=== PATIENT | female | born 1970 | race Caucasian/White ===

== ENCOUNTER 2024-07-26 02:25 | Inpatient (IN) | payer OTHER, SELFPAY ==
[2024-07-25 20:12] VITALS: BP 108/76
[2024-07-25 20:49] LABS: % Eosinophils 0.2 % (0-6); % Immature Granulocytes 0.5 % (0-0.5); % Lymphocytes 33.6 % (20.5-51.1); % Monocytes 5.1 % (1.7-9.3); % Neutrophils 60.6 % (42.2-75.2); Absolute Lymphocytes 1.9 10^3/uL (1.2-3.4); Absolute Monocytes 0.3 10^3/uL (0.1-0.6); Absolute Neutrophils 3.5 10^3/uL (1.4-6.5); Hematocrit 24.2 % (37.0-47.0); Hemoglobin 8.1 g/dL (12.0-16.0); Mean Corp Hgb Conc. 33.5 g/dL (33.0-37.0); Mean Corpuscular Hgb 31.5 pg (27.0-31.0); Mean Corpuscular Volume 94.2 fL (81.0-99.0); Nucleated Red Blood Cells % 0 %; Red Blood Cell Count 2.57 10^6/uL (4.20-5.40); Red Cell Dist. Width 16.3 % (11.5-14.5); White Blood Cell Count 5.7 10^3/uL (4.8-10.8)
[2024-07-25 20:59] LABS: ALT (SGPT) 19 U/L (0-35); AST (SGOT) 17 U/L (14-36); Albumin 2.5 g/dl (3.5-5.0); Alkaline Phosphatase 669 U/L (38-126); Blood Urea Nitrogen 25 mg/dl (7-17); Calcium 8.5 mg/dl (8.4-10.2); Carbon Dioxide 20 mmol/L (22-30); Chloride 101 mmol/L (98-107); Glucose 82 mg/dl (70-99); Lipase 33 U/L (23-300); Potassium 4.1 mmol/L (3.5-5.1); Sodium 132 mmol/L (135-145); Total Bilirubin 0.2 mg/dl (0.2-1.3); Total Protein 5.1 g/dl (6.3-8.2); eGFR > 60.00
[2024-07-25 21:10] LABS: Mean Platelet Volume 8.1 fL (7.4-10.4); Platelet Count 808 10^3/uL (130-400)
[2024-07-25 21:43] VITALS: BMI 22.8
[2024-07-25 21:44] VITALS: BP 106/76
--- NOTE | 2024-07-25 22:03 | ED.GENMED ---
History of Present Illness
<Jame Sierra MD, Resident - Last Filed: 07/26/24 03:00>
General
Chief Complaint: Abdominal Pain
Source: patient
Time Seen by Provider: 07/25/24 22:03
Travel History
Have you traveled to any high risk areas for coronavirus over the past 14 days?: No
Have you had any contact with someone who has COVID-19?: No
Do you have any symptoms of coronavirus? Fever > 100 degrees, chills, cough, shortness of breath, sore throat, loss of taste or smell, muscle aches, or headache?: No
History of Present Illness
History of Present Illness:
Kacey Waldrop, 54-year-old female with Crohn's disease/ulcerative colitis, has had worsening lower abdominal pain, bloody diarrhea, weakness, lightheadedness, intermittent fevers and nausea for the past few weeks. She was recently discharged from
[facility] for similar symptoms on 07-09-24. She is on prednisone but has been off mesalamine for the past month or so due to insurance issues. She has a follow-up scheduled with her back end developer next week; came to the emergency today due to
progressive pain and worsening bloody diarrhea.
Past History
<Jame Sierra MD, Resident - Last Filed: 07/26/24 03:00>
Past History
ED Past Medical History: Other (Crohn's disease/ulcerative colitis; gastroesophageal reflux disease; uterine fibroids)
ED Past Surgical History: Other (fibroid surgery)
Social History
Tobacco: Non-smoker
Alcohol: Occasional
Drug: None
Review of Systems
<Jame Sierra MD, Resident - Last Filed: 07/26/24 03:00>
Review of Systems
All Other Systems: Not applicable
Constitutional: Reports fever and fatigue
EENT: Reports no symptoms
Respiratory: Reports no symptoms
Cardiac: Reports no symptoms
ABD/GI: Reports nausea, bloody stools, anorexia and pain
: Reports no symptoms
Musculoskeletal: Reports no symptoms
Skin: Reports no symptoms
Neurological: Reports no symptoms
Endocrine: Reports no symptoms
Hematologic/Lymphatic: Reports no symptoms
Psychiatric: Reports no symptoms
Phy Exam
<Jame Sierra MD, Resident - Last Filed: 07/26/24 03:00>
General Physical Exam
General Presentation: mild distress
General Skin: warm and dry
General Habitus: normal
General Mental: alert
General Hydration: appears well hydrated
ENT Exam
ENT Exam: EOMI, pharynx normal, neck supple and normocephalic
Eye Exam
Eye Exam: PERRL, cornea clear and conjunctiva normal
Cardiovascular Exam
Cardiovascular Exam: regular rate/rhythm, no edema, no murmur and normal peripheral pulses
Pulmonary Exam
Pulmonary Exam: lungs clear, no respiratory distress, no rales, no crackles, no rhonchi, no stridor, no wheezing and no cough
Gastrointestinal Exam
Gastrointestinal Exam: soft, no organomegaly, no pulsatile mass and tender (LLQ > lower > diffuse)
Neurological Exam
Neurological Exam: alert, oriented x3, no motor deficits and speech normal
Musculoskeletal Exam
Musculoskeletal Exam: full ROM and no edema
Skin Exam
Skin Exam: normal color, warm/dry, no rash and no petechia
Psychiatric Exam
Psychiatric Exam: anxious
Course
<Jame Sierra MD, Resident - Last Filed: 07/26/24 03:00>
Orders/Labs/Results
Orders:
Orders
07/25/24 20:26
Complete Blood Count/With Diff Urgent
Comprehensive Metabolic Panel Urgent
Lipase Urgent
07/25/24 22:24
Add On- LAB Urgent
Tests Added?: lipase; lactic acid
HYDROmorphone [Dilaudid] 0.5 mg IV NOW STA
Ondansetron Injectable [Zofran] 4 mg IV NOW STA
07/25/24 22:26
0.9% Sodium Chloride 1000 ml [Nss] 1,000 ml IV BOLUS
07/25/24 23:44
Lactic Acid Urgent
Comment: COLLECT. CANNOT ADDON A LACTIC ACID
07/26/24 00:00
CT Abd/pelvis W Iv Cont Stat
Reason For Exam: LLQ pain; bloody diarrhea; suspected UC flare
07/26/24 01:07
MethylPREDNISolone PF [Solu-Medrol Pf] 60 mg IV NOW STA
07/26/24 02:00
Flush (0.9% Sodium Chloride) [Flush (Nss)] See Dose Instructions IV PER PROTOCOL
07/26/24 02:11
Admit/Transfer Patient As Directed
Co-Sign Provider:
Level of Care: Inpatient admission
Assign to:: Medical/Surgical
Physician / Group: hospitalist
Diagnosis: Inflammator bowel disease
Reason for Hospitalization: Uncontrolled IBD
Expected length of stay greater than two midnights?: Yes
ELOS- Estimated Length of Stay in days: 2
I certify the patient meets the requirements for IP care: Yes
Code Status As Directed
Resuscitation Status: Full Code
PRN Pain Medication Management As Directed
May give lesser potent ordered pain med per pt: Yes
preference::
Protocol:: Medication orders for pain may be administered in a
manner that supports deferring to patient preference
when the pt is:
- Requesting an ordered lesser potent pain medication.
Least to most potent pain medications are defined
as: acetaminophen < NSAID < tramadol < opioids
(morphine, oxycodone, hydromorphone).
- Requesting a lesser dose of the same medication IF
ORDERED.
- Requesting a less intrusive route of administration
if both routes are prescribed by the provider (PO <
IV).
Abnormal Lab Results
07/25/24
20:26
RBC 2.57 L 10^6/uL
(4.20-5.40)
Hgb 8.1 L g/dL
(12.0-16.0)
Hct 24.2 L %
(37.0-47.0)
MCH 31.5 H pg
(27.0-31.0)
RDW 16.3 H %
(11.5-14.5)
Plt Count 808 H 10^3/uL
(130-400)
Sodium 132 L mmol/L
(135-145)
Carbon Dioxide 20 L mmol/L
(22-30)
BUN 25 H mg/dl
(7-17)
Alkaline Phosphatase 669 H U/L
(38-126)
Total Protein 5.1 L g/dl
(6.3-8.2)
Albumin 2.5 L g/dl
(3.5-5.0)
07/25/24 20:26
07/25/24 20:26
Vital Signs
Initial and Last Documented VS:
Initial Vital Signs
Temp Pulse Resp BP Pulse Ox
98.5 F 96 18 108/76 98
07/25/24 20:12 07/25/24 20:12 07/25/24 20:12 07/25/24 20:12 07/25/24 20:12
Last Documented Vital Signs
Temp Pulse Resp BP Pulse Ox
98.3 F 81 18 106/73 99
07/25/24 21:44 07/25/24 21:44 07/25/24 21:44 07/25/24 23:00 07/25/24 23:00
<Christian Springer MD - Last Filed: 07/26/24 01:09>
Orders/Labs/Results
Orders:
Orders
07/25/24 20:26
Complete Blood Count/With Diff Urgent
Comprehensive Metabolic Panel Urgent
Lipase Urgent
07/25/24 22:24
Add On- LAB Urgent
Tests Added?: lipase; lactic acid
HYDROmorphone [Dilaudid] 0.5 mg IV NOW STA
Ondansetron Injectable [Zofran] 4 mg IV NOW STA
07/25/24 22:26
0.9% Sodium Chloride 1000 ml [Nss] 1,000 ml IV BOLUS
07/25/24 23:44
Lactic Acid Urgent
Comment: COLLECT. CANNOT ADDON A LACTIC ACID
07/26/24 00:00
CT Abd/pelvis W Iv Cont Stat
Reason For Exam: LLQ pain; bloody diarrhea; suspected UC flare
07/26/24 01:07
MethylPREDNISolone PF [Solu-Medrol Pf] 60 mg IV NOW STA
07/26/24 02:00
Flush (0.9% Sodium Chloride) [Flush (Nss)] See Dose Instructions IV PER PROTOCOL
07/26/24 02:11
Admit/Transfer Patient As Directed
Co-Sign Provider:
Level of Care: Inpatient admission
Assign to:: Medical/Surgical
Physician / Group: hospitalist
Diagnosis: Inflammator bowel disease
Reason for Hospitalization: Uncontrolled IBD
Expected length of stay greater than two midnights?: Yes
ELOS- Estimated Length of Stay in days: 2
I certify the patient meets the requirements for IP care: Yes
Code Status As Directed
Resuscitation Status: Full Code
PRN Pain Medication Management As Directed
May give lesser potent ordered pain med per pt: Yes
preference::
Protocol:: Medication orders for pain may be administered in a
manner that supports deferring to patient preference
when the pt is:
- Requesting an ordered lesser potent pain medication.
Least to most potent pain medications are defined
as: acetaminophen < NSAID < tramadol < opioids
(morphine, oxycodone, hydromorphone).
- Requesting a lesser dose of the same medication IF
ORDERED.
- Requesting a less intrusive route of administration
if both routes are prescribed by the provider (PO <
IV).
Abnormal Lab Results
07/25/24
20:26
RBC 2.57 L 10^6/uL
(4.20-5.40)
Hgb 8.1 L g/dL
(12.0-16.0)
Hct 24.2 L %
(37.0-47.0)
MCH 31.5 H pg
(27.0-31.0)
RDW 16.3 H %
(11.5-14.5)
Plt Count 808 H 10^3/uL
(130-400)
Sodium 132 L mmol/L
(135-145)
Carbon Dioxide 20 L mmol/L
(22-30)
BUN 25 H mg/dl
(7-17)
Alkaline Phosphatase 669 H U/L
(38-126)
Total Protein 5.1 L g/dl
(6.3-8.2)
Albumin 2.5 L g/dl
(3.5-5.0)
07/25/24 20:26
07/25/24 20:26
Vital Signs
Initial and Last Documented VS:
Initial Vital Signs
Temp Pulse Resp BP Pulse Ox
98.5 F 96 18 108/76 98
07/25/24 20:12 07/25/24 20:12 07/25/24 20:12 07/25/24 20:12 07/25/24 20:12
Last Documented Vital Signs
Temp Pulse Resp BP Pulse Ox
98.3 F 81 18 106/73 99
07/25/24 21:44 07/25/24 21:44 07/25/24 21:44 07/25/24 23:00 07/25/24 23:00
<Jame Sierra MD, Resident - Last Filed: 07/26/24 03:00>
MDM/Problems Addressed
MDM/Problems Addressed:
CT AP consistent with diffuse colitis. IV steroids and will admit.
<Jame Sierra MD, Resident - Last Filed: 07/26/24 03:00>
*Critical Care Note
Total Time (30-74mins, 75-104mins- exclusive of procedures): Not Applicable
ED Attending Note
<Jame Sierra MD, Resident - Last Filed: 07/26/24 03:00>
-
Portions of this chart may have been created with voice recognition software.� Occasional wrong word or��sound alike� substitutions may have occurred due to the inherent limitations of voice recognition software.
<Christian Springer MD - Last Filed: 07/26/24 01:09>
ED Attending Note
Patient seen and examined by attending physician: Yes
I performed a history and physical exam of patient and discussed management with resident, I reviewed resident's note and agree with documented findings and plan of care.: Yes
ED Attending Note:
I have seen and evaluated the patient with a zpps-ox-poda encounter. I have spoken to the resident and involved in the medical history, the physical exam, medical decision making.
Evaluation and management service: agree unless noted differently below.
Results interpretation: agree unless noted differently below.
Focused HPI: 54-year-old female with past medical history of GERD, Crohn's who presents to the emergency room for evaluation of abdominal pain. Patient reports she has been dealing with lower abdominal pain and bloody diarrhea for the past month.
Symptoms became more severe a few weeks ago and she was admitted at [facility] for about 2 weeks was discharged at the end of June. She says she was on Remicade while admitted and was also treated with steroids; she says she was discharged
on prednisone is currently on 50 mg daily. She says that despite this she has continued to have crampy abdominal pain and symptoms have been worsening over the past few days and she cannot manage at home. She continues to have bloody diarrhea.
Came to the ER for assessment. Denies fevers or chills. Denies vomiting. Denies other complaints.
Physical exam: Awake alert appears mildly uncomfortable. Vital signs are within normal limits. Abdomen soft, nondistended, mild upper abdominal tenderness, moderate lower abdominal tenderness somewhat worse on the left
Medical Decision Makin-year-old female with a history of Crohn's and recent admission at [facility] for Crohn's flare presents to the ED for evaluation of worsening crampy abdominal pain and bloody diarrhea. Vitals and exam as above. Labs
were sent off including a CBC which shows anemia to 8, thrombocytosis. CMP shows alk phos 669. Awaiting results of CT abdomen pelvis. Provide pain control, fluids. Reassess as above.
CT shows findings consistent with diffuse colitis�suspect Crohn's flare. Treat with IV steroid. Will admit for continued treatment. Discussed with hospitalist.
Discharge Plan
Departure
Patient Disposition: Admit
Date of Disposition: 07/26/24
Time of Disposition: 01:22
Presentation/result/management discussed w/ accepting MD/DO: Hospitalist
Patient with high blood pressure during this ER visit?: No
Discharge Problem:
Colitis
Interventions
Interventions:
*Risk Screen - Suicide Last Done: 07/25/24 20:12
*General Assessment Last Done: 07/25/24 20:12
*Neglect/Abuse Screening Last Done: 07/25/24 20:12
*ED COVID-19 Vaccine History Last Done: 07/25/24 20:12
JT-Kgcddd-Areyrsnmwc Assessment Last Done: 07/25/24 21:46
[2024-07-25 23:00] VITALS: BP 106/73
--- NOTE | 2024-07-25 23:23 | PTCARENOTE ---
IV start attempt x2 unsuccessful, IV team notified.
[2024-07-25] MEDS: DILAUDID 0.5 MG IV (23:40)
[2024-07-25] MEDS: ZOFRAN 4 MG IV (23:40)
[2024-07-25] MEDS: NSS 1000 IV (23:40)
[2024-07-26] VITALS (20 sets, daily range): BP systolic 94–111; BP diastolic 58–83; BMI 22.2
[2024-07-26] MEDS: SOLU-MEDROL PF 60 MG IV (01:39)
--- NOTE | 2024-07-26 01:48 | HPS.HSE ---
Family Physician
-
Family Physician: Dipti Mohan
Chief Complaint
-
Abdominal pain and diarrhea
History of Present Illness
This is a 54-year-old who has a longstanding history of inflammatory bowel disease (states about Crohn's and ulcerative colitis) who presents to the emergency department for persistent loose stools and abdominal pain has been going on since her
discharge from [facility] on July 09 and worsened in the last few days.
Patient reported that IBD has been in remission since around 2015 and she has been of any suppressive medications for a long time. She was asymptomatic until June of this year when she was admitted at [facility] and diagnosed with
exacerbation of her IBD. She was treated with steroids mesalamine and given a dose of Remicade prior to discharge. Patient was unable to feel her methylamine. She did continue on a prednisone taper starting at 60 mg daily for 10 days and now on
50 mg. Despite this the patient continues to have frequent bloody or mucousy stools as well as abdominal pain. She denies fevers or chills. She denies nausea or vomiting. She is able to tolerate some p.o. She was to follow-up with
repairer screen crusher (Dr. Juan Roche) in [place] next months but she feels symptoms so severe she cannot tolerate. It is unclear to why she is unable to fill the prescription for the mesalamine.
The emergency department was afebrile hemodynamically stable and has a normal CBC except for some thrombocytosis 11/22/2007. Seen lites BUN/creatinine was mostly unremarkable. Lactic acid was negative. CT scan of abdomen pelvis shows diffuse
colitis
Medical History
Past Medical History
Past Medical History: Reports GERD
Additional Past Medical History:
Psoriasis
IBD
Past Surgical History: Reports Gynocological (Fibroid resection)
Social History
Tobacco: Non-smoker
Alcohol: None
Drug: None
Personal: Single
Living: Alone
Employment: Not Employed
Family History
Family History: Not pertinent
Allergies / Home Medications
Allergies reflects when Allergies were last updated in [employer].
Home Medications with original date entered in [employer]
Allergy/Medication List:
Allergies
Allergy/AdvReac Type Severity Reaction Status Date / Time
No Known Allergies Allergy Unverified 07/25/24 20:12
Sertraline 50mg, 1 Tab PO daily
Pantoprazole 40mg, 1 Tab PO daily
Nystatin Suspension, 5ml ([id number]) PO Four times daily
Review of Systems
-
History Source: Patient
Constitutional: Reports Fatigue
EENT: Reports No Symptoms
Respiratory: Reports No Symptoms
Cardiac: Reports No Symptoms
Abdomen/GI: Reports Abdominal Pain, Diarrhea and Bloody Stools
: Reports No Symptoms
Musculoskeletal: Reports No Symptoms
Skin: Reports No Symptoms
Neurological: Reports No Symptoms
Endocrine: Reports No Symptoms
Hematologic/Lymphatic: Reports No Symptoms
Psych: Reports No Symptoms
Physical Exam
Vital Signs
Vital Signs
Temp Pulse Resp BP Pulse Ox
98.3 F 81 18 106/73 99
07/25/24 21:44 07/25/24 21:44 07/25/24 21:44 07/25/24 23:00 07/25/24 23:00
Physical Exam
General: No Apparent Distress
HEENT: NormoCephalic, Anicteric, Moist mucous membranes, Atraumatic, PERRLA and Other
Respiratory: Clear
Cardiac: S1/S2 and Regular Rhythm
Breast: Deferred by me
GI: Soft, Normal Bowel Sounds, Tender (in the LUQ, LLQ and RLQ) and Other (No guarding or rebound)
Rectal: Deferred by Provider
Musculoskeletal: No Clubbing, No Cyanosis and No Edema
Neuro: AO x 3
Hematologic/Lymphatic: No Lymphadenopathy
Psych: Calm
Laboratory Results
-
07/25/24 20:26
07/25/24 20:
Laboratory Results
Lactic Acid 1.0 mmol/L (0.7-2.0) 07/25/24 23:44
Total Bilirubin 0.2 mg/dl (0.2-1.3) 07/25/24 20:
AST 17 U/L (14-36) 07/25/24 20:
ALT 19 U/L (0-35) 07/25/24 20:
Alkaline Phosphatase 669 U/L (38-126) H 07/25/24 20:
Lipase 33 U/L (23-300) 07/25/24 20:
Data Reviewed
-
CT Scan: Report Reviewed by me
Lab Data: Labs Reviewed by me
Old Records: Reviewed
Impression/Plan
-
IMPRESSION:
Patient with history of inflammatory bowel disease (Crohn's and ulcerative colitis), psoriasis or any who presents to the emergency department with persistent abdominal pain diarrhea and nausea status post admission for exacerbation in June at
[facility]. She was discharged on a prednisone taper, mesalamine and given a dose of Remicade prior to discharge. Patient unable to fill the mesalamine but has continued on the prednisone taper pending follow-up with repairer screen crusher.
She is however having persistent to worsening symptoms and unable to wait for this appointment. Claudia had no fevers or chills. Labs remarkable for anemia with hemoglobin of 8.1 but otherwise stable.
PLAN:
1. GI -abdominal pain, frequent bloody and loose stools, tenderness, consistent with active inflammatory bowel disease. CT scan shows colitis. It appears that she was started on induction therapy to achieve remission but patient is not quite
responding to the steroids, immunomodulators. Based on the treatment approach suggestion that she has more of an ulcerative colitis picture 'patient has also been diagnosed with Crohn's and has psoriasis
- admit to med/surg
- clear liquid diet for now
- obtain records from [facility]
- s/p IV prednisone 50mg in ED, continue oral prednisone 40mg po daily for now
- check crp, esr,
- IV fluids, GI consultation
2. Anemia - ACD vs Iron def Anemia given intermittently bloody stools for weeks
- getting iron studies and including hemolysis labs and folate b12
- transfuse if hgb < 7
DVT PPx - Lovenox sq
Code Status - Full Code
[2024-07-26] MEDS: LR 1000 IV ×2 (06:21→23:25)
[2024-07-26 06:46] LABS: Erythrocyte Sed Rate 92 mm/hour (0-20)
[2024-07-26 06:47] LABS: Hematocrit 20.8 % (37.0-47.0); Hemoglobin 6.9 g/dL (12.0-16.0); Mean Corp Hgb Conc. 33.2 g/dL (33.0-37.0); Mean Corpuscular Hgb 30.3 pg (27.0-31.0); Mean Corpuscular Volume 91.2 fL (81.0-99.0); Mean Platelet Volume 8.2 fL (7.4-10.4); Platelet Count 663 10^3/uL (130-400); Red Blood Cell Count 2.28 10^6/uL (4.20-5.40); Red Cell Dist. Width 16.4 % (11.5-14.5); White Blood Cell Count 6.5 10^3/uL (4.8-10.8)
[2024-07-26 06:55] LABS: Blood Urea Nitrogen 20 mg/dl (7-17); Calcium 7.7 mg/dl (8.4-10.2); Carbon Dioxide 19 mmol/L (22-30); Chloride 104 mmol/L (98-107); Estimated Creatinine Clearance 78 ml/min; Glucose 116 mg/dl (70-99); LDH 180 U/L (120-246); Potassium 4.5 mmol/L (3.5-5.1); Sodium 133 mmol/L (135-145); Total Bilirubin 0.1 mg/dl (0.2-1.3); eGFR > 60.00
[2024-07-26 07:03] LABS: Total Iron Binding Capacity 114 ug/dl (265-497)
[2024-07-26 07:16] LABS: Iron < 20 ug/dl (37-170)
[2024-07-26] MEDS: PROTONIX 40 MG PO (07:48)
[2024-07-26] MEDS: DELTASONE 50 MG PO (07:48)
[2024-07-26] MEDS: MYCOSTATIN ORAL SUSPENSION 5 ML PO ×4 (07:49→22:03)
[2024-07-26] MEDS: ZOLOFT 50 MG PO (07:49)
[2024-07-26 08:04] LABS: Folate 8.8 ng/ml (2.76-20); Vitamin B12 > 1000 pg/ml (239-931)
--- NOTE | 2024-07-26 09:07 | W.PN.HOSP.TC ---
Today's Communication/Plan
-
Recheck CBC
Continue IV steroids, PPI
Lovenox for DVT prophylaxis
Appreciate GI
Assessment / Plan
Assessment / Plan
Physical Exam
General: No Apparent Distress
HEENT: Normocephalic
Respiratory: Clear
Cardiac: S1/S2 and Regular Rhythm
GI: Soft, Normal Bowel Sounds, Mildly Tender (in the LUQ, LLQ and RLQ) and Other (No guarding or rebound)
Musculoskeletal: No Cyanosis and No Edema
Neuro: AAO x 3
Psych: Calm

Assessment/Plan
Patient with history of inflammatory bowel disease (Crohn's and ulcerative colitis), psoriasis who presented to the emergency department with persistent abdominal pain diarrhea and nausea status post admission for exacerbation in June 2024 at
[facility]. She was discharged on a prednisone taper, mesalamine and given a dose of Remicade prior to discharge. Patient unable to fill the mesalamine but has continued on the prednisone taper pending follow-up with brand marketing specialist.
She is however having persistent to worsening symptoms and unable to wait for the appointment with brand marketing specialist. Labs remarkable for anemia with hemoglobin of 8.1 but otherwise stable.
#Presentation with progressive lower abdominal pain and worsening bloody diarrhea for the past few weeks
#GI -abdominal pain, frequent bloody and loose stools, tenderness, consistent with active inflammatory bowel disease. CT scan showed colitis. It appears that she was started on induction therapy to achieve remission but patient is not quite
responding to the steroids, immunomodulators. Based on the treatment approach suggestion that she has more of an ulcerative colitis picture 'patient has also been diagnosed with Crohn's and has psoriasis
- clear liquid diet for now --> advance diet as tolerated
- obtain records from [facility]
- Continue IV steroids
- check crp, esr,
- IV fluids, GI consultation
- Stool studies
- Continue daily PPI
#Anemia - ACD vs Iron def Anemia given intermittently bloody stools for weeks
- getting iron studies and including hemolysis labs and folate b12
- transfuse if hgb < 7
-I Romario Texted on-call recyclable materials collector Dr. Bray on July 26, 2024 morning, asking if someone with inflammatory bowel disease on immunosuppressive medications needs CMV negative, and irradiated blood (in addition to leukoreduced), but she
mentioned that there is no need for CMV negative and irradiated blood but rather in this case can give regular leukoreduced PRBCs. Appreciate Dr. Bray's assistance.
DVT PPx - Lovenox sq
Code Status - Full Code
Anticipated Discharge: > 48 hours
Subjective/Interval History
-
Date of Service: July 26, 2024
Patient was seen and examined. She reported abdominal pain.
Objective Data
-
Labs:
Laboratory Results
07/25/24 07/26/24
20:26 06:32
WBC 6.5
Hgb 6.9 L*
Hct 20.8 L*
Plt Count 808 H 663 H
Sodium 133 L
Potassium 4.5
Chloride 104
Carbon Dioxide 19 L
BUN 20 H
Creatinine 0.8
Glucose 116 H
Calcium 7.7 L
Total Bilirubin 0.1 L
Vital Signs:
Vital Signs
Temp Pulse Resp BP Pulse Ox
98.4 F 77 20 102/62 96
07/26/24 07:47 07/26/24 07:47 07/26/24 07:47 07/26/24 07:47 07/26/24 05:34
[2024-07-26] MEDS: DILAUDID 0.5 MG IV ×3 (09:50→20:36)
--- NOTE | 2024-07-26 12:55 | CON.GI ---
Addendum entered and electronically signed by John Guzman MD 07/26/24 14:23:
I saw and examined the patient.
The PA's note was reviewed and I agree with the note.
Comment:
54 year old female with h/o IBD who p/w abdominal pain and bloody diarrhea.
Impression / Rec:
1. IBD - pt was reportedly dx'ed with ?CD and UC? Initially diagnosed in [address] Marcos Brower. Reportedly was on steroids and had a single infusion of Remicade in 2003. She had a colonoscopy by Dr. Roche in 2019 which was reportedly
normal and was told she was in 'remission'. Was not on any maintenance therapy. Then she was hospitalized at [facility] with treatment with steroids, mesalamine, and Remicade initiation on 07/04/2024. She was discharged on steroid
taper 60 mg to reduce by 10 mg every 10 days. The patient is homeless. She reports her bloody diarrhea/pain never really improved despite her Remicade infusion. Since admission, she has not had any BM. CT here showed pancolitis. Elevated
ESR/CRP.
Essentially, she likely has IBD (probably UC) with poor follow up/no maintenance therapy p/w ?flare. Will need to r/o infectious (C. Diff). Stool studies ordered. Empirical steroids for now w/ solumedrol. Ok for CLD for now.
Original Note:
Consultation
-
Date/Time Consultation Requested: 07/26/24 0308
Date/Time Consultation Performed: 07/26/24 1100
Requesting Provider: Dr. Raphael
Performing Provider: Dr. Guzman/KRYSTAL Nowak
Reason for Consultation: colitis
Medical History
Chief Complaint / HPI
Chief Complaint: colitis
History of Present Illness:
54-year-old female with past medical history of GERD, degenerative disc disease with back injury of L4-L5, psoriasis 'Crohn's and colitis'. Initially diagnosed in [address] Marcos Brower and then followed by Dr. Christian Brandon with her first
colonoscopy at that time. The patient states that she was initially started on steroids and is to call followed by a single dose of Remicade in 2003. She states that she immediately got better and followed with them until 2004. She states her
next attack was in 2010 however at that time she was in [facility]. She went to the emergency room where she was treated with steroids and Asacol. She states that she did well until 2008 at which point she states that she followed up with
Dr. Juan Roche and had a repeat colonoscopy at that time and was told that she was in 'remission'. And did not require any medications. She states he told her to come back if she had any problems. The patient states that this May she had
abdominal pain with profuse bloody diarrhea and she required admission in June to [facility]. She states at that time she had a limited colonoscopy or sigmoidoscopy with Dr. Kong. She states that she was started on steroids and
is to call. She states that she was given a dose of Remicade on 07/04/2024. She states that she was discharged to home with a steroid taper. This was to start with prednisone 60 mg daily x 10 days and to reduce by 10 mg every 10 days. The patient
has a follow-up appointment with her top case assembler Dr. Roche on July 31. However she states that she was having multiple bloody bowel movements daily with extreme fatigue and unwell feeling. She was unable to obtain her prescription
for mesalamine secondary to insurance issues. She was staying with a friend however she is essentially homeless. She had to sell her car. She has no children or parents. She was brought into the emergency room via EMS. She denies any fevers,
chills, nausea, vomiting, melena, dysphagia or odynophagia. She denies any early satiety or unintentional weight loss. She has been afebrile. Her hemoglobin did drop with IV fluids. She does tell me that while she was in [facility] her
hemoglobin was low however she was given IV iron. She is currently receiving a unit of packed red blood cells. Her lactic acid was negative. CT of the abdomen and pelvis shows diffuse colonic and rectal wall thickening with some stranding in the
adjacent fat consistent with diffuse colitis and likely secondary to known ulcerative colitis. The patient is currently menstruating. She states she gets this monthly. She does not have heavy periods. She does have a history of fibroids. She
does not smoke. She states she did have a history of alcohol abuse in the past however she has not drank in over 6 months. In the past she would go through a couple bottles of wine a week. She was being treated for oral thrush with nystatin.
Currently at this time there is no evidence of oral thrush on my exam. WBC 6.5, hemoglobin 6.9 (down from 8.1), hematocrit 20.8, platelets 663, ESR 92, sodium 133, potassium 4.5, CO2 19, BUN 20, creatinine 0.8, glucose 116, calcium 7.7, iron less
than 20, TIBC 114, percent saturation unable to calculate, B12 greater than 1000, folate 8.8, total bilirubin 0.1, AST 17, ALT 19, alk phos 669, LDH 180, CRP 121.9, albumin 2.5, lipase 33
Past Medical History
Past Medical History: GERD and Other (IBD (patient states both Crohn's and ulcerative colitis), psoriasis, degenerative disc disease with back injury of L4-L5)
Past Surgical History: Other (Bilateral breast augmentation)
Social History
Tobacco: Non-Smoker
Alcohol: Former (Was drinking a couple bottles of wine a week, currently none past 6 months)
Drug: None
Personal: Single
Living: Homeless
Employment: Not Employed
Family History
Family History: Other (No family history of gastrointestinal malignancy or IBD)
Allergies / Home Medications
Allergy/AdvReac Type Severity Reaction Status Date / Time
No Known Allergies Allergy Unverified 07/25/24 20:12
�Medication �Instructions �Recorded
acetaminophen 325 mg tablet 650 mg PO Q6HPRN PRN mild pain 07/26/24
(Tylenol)
melatonin 5 mg tablet 5 mg PO HSPRN PRN sleep 07/26/24
nystatin 100,000 unit/mL oral 5 ml PO QID 07/26/24
suspension
pantoprazole 40 mg tablet,delayed 40 mg PO BID 07/26/24
release (Protonix)
prednisone 10 mg tablets in a dose 10 mg PO DIRECTED 07/26/24
pack
sertraline 50 mg tablet 50 mg PO DAILY 07/26/24
triamcinolone acetonide 0.05 % 1 applic topical DAILY b/l legs 07/26/24
topical ointment
Review of Systems
-
All other systems: A 12 pt ROS was Negative except as stated above in HPI
Vital Signs
Temp Pulse Resp BP Pulse Ox
98.8 F 73 16 102/72 97
07/26/24 11:20 07/26/24 12:00 07/26/24 12:00 07/26/24 12:00 07/26/24 12:00
Physical Exam
Exam
General: No Apparent Distress
HEENT: Anicteric
Respiratory: Clear
Cardiac: Regular Rhythm
GI: Soft, Non Tender, Non Distended and Normal Bowel Sounds
Musculoskeletal: No Edema
Skin: Warm and Dry
Neuro: AO x 3
Psych: Calm
Results
WBC 6.5 10^3/uL (4.8-10.8) 07/26/24 06:32
Hgb 6.9 g/dL (12.0-16.0) L* 07/26/24 06:32
Hct 20.8 % (37.0-47.0) L* 07/26/24 06:32
MCV 91.2 fL (81.0-99.0) 07/26/24 06:32
Plt Count 663 10^3/uL (130-400) H 07/26/24 06:32
Absolute Neuts (auto) 3.5 10^3/uL (1.4-6.5) 07/25/24 20:26
Sodium 133 mmol/L (135-145) L 07/26/24 06:32
Potassium 4.5 mmol/L (3.5-5.1) 07/26/24 06:32
Chloride 104 mmol/L (98-107) 07/26/24 06:32
Carbon Dioxide 19 mmol/L (22-30) L 07/26/24 06:32
BUN 20 mg/dl (7-17) H 07/26/24 06:32
Creatinine 0.8 mg/dL (0.6-1.0) 07/26/24 06:32
Calcium 7.7 mg/dl (8.4-10.2) L 07/26/24 06:32
Total Bilirubin 0.1 mg/dl (0.2-1.3) L 07/26/24 06:32
AST 17 U/L (14-36) 07/25/24 20:26
ALT 19 U/L (0-35) 07/25/24 20:26
Alkaline Phosphatase 669 U/L (38-126) H 07/25/24 20:26
Lipase 33 U/L (23-300) 07/25/24 20:26
Diagnostic Image Results:
CT abdomen and pelvis with IV contrast:
IMPRESSION:
Diffuse colonic and rectal wall thickening with some stranding in the adjacent fat consistent with diffuse colitis and likely secondary to known ulcerative colitis.
10.8 x 8.4 cm peripherally calcified lesion within the uterus, likely large, partially calcified fibroid.
Atrophic right kidney.
Multilevel degenerative changes of the thoracolumbar spine with grade 1 anterolisthesis of L5 on S1 and bilateral pars defects.
Preliminary report provided by [facility] at 0041 07/26/2024.
Electronically signed by Naif Schulz MD, 07/26/2024 8:25 AM
Prior GI Procedures:
EGD: Unavailable to me
Colonoscopy: Unavailable to me however in June at [facility]. Will obtain records
Assessment / Plan
-
54-year-old female with past medical history of GERD, degenerative disc disease with back injury of L4-L5, psoriasis 'Crohn's and colitis'. Initially diagnosed in [address] Marcos Brower and then followed by Dr. Christian Brandon with her first
colonoscopy at that time. The patient states that she was initially started on steroids and is to call followed by a single dose of Remicade in 2003. With second attack in 2010 treated with steroids and Azo call 2010 per patient. With follow-up in
2018 per patient with with colonoscopy and states she was in 'remission' with no need for medication since that time until this June when she required hospitalization at [facility] with treatment with steroids
mesalamine and Remicade initiation on 07/04/2024. Records unavailable to us. She was discharged on steroid taper 60 mg to reduce by 10 mg every 10 days. She did not receive mesalamine due to financial constraints. The patient is homeless. She
was staying with a friend but is unable to do so anymore. She was having 5 bloody bowel movements daily. EMS was called and she was brought to [facility] where we are seeing her now for further recommendations.
Impression:
IBD-> Patient states she has both Crohns and Colitis, Will obtain records.
Anemia-> Blood loss, and iron deficiency, acute and chronic
Hypoalbuminemia
GERD
Homelessness
Plan:
-Obtain records from [facility] admission, already placed request.
-Check stools for infectious causes, although less likely must be ruled out. (Cdiff, O&P, culture, giardia)
-Clear liquid diet then advance as tolerated to low residue
-Add Ensure clear TID
-Solumedrol 20 mg IV q 8 hrs, will start tonight as she had IV last evening and oral this am.
-geriatric social worker consultation. Address patient needs, [facility], [place] planning.
-Continue Pantoprazole daily
-Patient receiving blood transfusion now, will follow up on CBC in am. Patient has not had any BM/BPR since arrival and also currently menstruating.
-No signs of oral thrush, will defer to IM for Nystatin
-CBC, CMP, GGT in am
-Continue Lovenox for DVT ppx
-Further recommendations once we receive records from [facility] so we can truly see data to address further. If no records received by Sunday will reach out to physicians personally.
-
-
Thank you for consultation and allowing me to participate in the patient's care. Please call the automatic transmission mechanic GI physician during the after hours with any questions or concerns.
[2024-07-26] MEDS: TYLENOL 650 MG PO ×2 (13:06→18:45)
[2024-07-26] MEDS: LIDOCAINE 4% PATCH 1 PATCH TOPICAL (13:06)
[2024-07-26] MEDS: SOLU-MEDROL PF 20 MG IV ×2 (17:46→23:37)
[2024-07-26] MEDS: LOVENOX SC (18:45)
[2024-07-26 23:08] LABS: Hematocrit 25.3 % (37.0-47.0); Hemoglobin 8.3 g/dL (12.0-16.0); Mean Corp Hgb Conc. 32.8 g/dL (33.0-37.0); Mean Corpuscular Hgb 29.2 pg (27.0-31.0); Mean Corpuscular Volume 89.1 fL (81.0-99.0); Platelet Count 645 10^3/uL (130-400); Red Blood Cell Count 2.84 10^6/uL (4.20-5.40); Red Cell Dist. Width 18.4 % (11.5-14.5); White Blood Cell Count 6.9 10^3/uL (4.8-10.8)
[2024-07-27] MEDS: DILAUDID 0.5 MG IV ×5 (00:55→21:59)
[2024-07-27 06:25] VITALS: BP 102/69
[2024-07-27 08:59] LABS: Hematocrit 26.8 % (37.0-47.0); Hemoglobin 8.7 g/dL (12.0-16.0); Mean Corp Hgb Conc. 32.5 g/dL (33.0-37.0); Mean Corpuscular Volume 89.3 fL (81.0-99.0); Mean Platelet Volume 8.1 fL (7.4-10.4); Platelet Count 688 10^3/uL (130-400); Red Cell Dist. Width 18.4 % (11.5-14.5)
[2024-07-27 09:15] LABS: ALT (SGPT) 17 U/L (0-35); AST (SGOT) 13 U/L (14-36); Albumin 2.2 g/dl (3.5-5.0); Alkaline Phosphatase 719 U/L (38-126); Blood Urea Nitrogen 17 mg/dl (7-17); Calcium 8.4 mg/dl (8.4-10.2); Carbon Dioxide 23 mmol/L (22-30); Chloride 102 mmol/L (98-107); Estimated Creatinine Clearance 89 ml/min; GGTP 897 U/L (12-43); Glucose 131 mg/dl (70-99); Potassium 4.4 mmol/L (3.5-5.1); Sodium 134 mmol/L (135-145); Total Bilirubin < 0.1 mg/dl (0.2-1.3); Total Protein 4.5 g/dl (6.3-8.2); eGFR > 60.00
[2024-07-27] MEDS: LIDOCAINE 4% PATCH 1 PATCH TOPICAL (09:15)
[2024-07-27] MEDS: LR IV (09:15)
[2024-07-27] MEDS: MYCOSTATIN ORAL SUSPENSION 5 ML PO ×4 (09:16→20:57)
[2024-07-27] MEDS: PROTONIX 40 MG PO (09:16)
[2024-07-27] MEDS: SOLU-MEDROL PF 20 MG IV ×2 (09:16→16:58)
[2024-07-27] MEDS: ZOLOFT 50 MG PO (09:17)
[2024-07-27 10:40] LABS: % Basophils 0.5 % (0-2); % Immature Granulocytes 0.7 % (0-0.5); % Lymphocytes 14.9 % (20.5-51.1); % Monocytes 7.8 % (1.7-9.3); % Neutrophils 76.1 % (42.2-75.2); Absolute Lymphocytes 0.9 10^3/uL (1.2-3.4); Absolute Monocytes 0.5 10^3/uL (0.1-0.6); Absolute Neutrophils 4.6 10^3/uL (1.4-6.5); Nucleated Red Blood Cells % 0 %
--- NOTE | 2024-07-27 12:39 | W.PN.GI.CBS2 ---
Today's Communication / Plan
-
Adv diet to FLD
Assessment / Plan
-
54-year-old female with past medical history of GERD, degenerative disc disease with back injury of L4-L5, psoriasis 'Crohn's and colitis'. Initially diagnosed in [address] Marcos Brower and then followed by Dr. Christian Brandno with her first
colonoscopy at that time. The patient states that she was initially started on steroids and is to call followed by a single dose of Remicade in 2003. With second attack in 2010 treated with steroids and Azo call 2010 per patient. With follow-up in
2018 per patient with with colonoscopy and states she was in 'remission' with no need for medication since that time until this June when she required hospitalization at [facility] with treatment with steroids
mesalamine and Remicade initiation on 07/04/2024. Records unavailable to us. She was discharged on steroid taper 60 mg to reduce by 10 mg every 10 days. She did not receive mesalamine due to financial constraints. The patient is homeless. She
was staying with a friend but is unable to do so anymore. She was having 5 bloody bowel movements daily. EMS was called and she was brought to [facility] where we are seeing her now for further recommendations.
Patient produce stool for C. difficile was negative. Started on Solu-Medrol 20 mg q8. Will she reported having 1 pasty BM which was brownish. Feeling better today. Will advance her diet to full liquid today. Will consider converting her
steroids to oral formulation tomorrow.
Total Time Spent with Patient (in minutes): 35
Subjective
Subjective
Date of Service: July 27, 2024
Feeling better today. Reported one pasty brownish BM to me this AM.
Objective
Data Reviewed
Laboratory Data:
Laboratory Results
07/27/24 08:01
07/27/24 08:01
Laboratory Results
Total Bilirubin < 0.1 mg/dl (0.2-1.3) L 07/27/24 08:01
AST 13 U/L (14-36) L 07/27/24 08:01
ALT 17 U/L (0-35) 07/27/24 08:01
Alkaline Phosphatase 719 U/L (38-126) H 07/27/24 08:01
Lipase 33 U/L (23-300) 07/25/24 20:26
Vital Signs and I&O:
Vital Signs
Temp Pulse Resp BP Pulse Ox
97.8 F 65 16 102/69 99
07/27/24 06:25 07/27/24 06:25 07/27/24 06:25 07/27/24 06:25 07/27/24 06:25
I&O
07/26/24 07/27/24 07/28/24
06:59 06:59 06:59
Intake Total 2019
Balance 2019
[2024-07-27] MEDS: LR 1000 IV (12:51)
[2024-07-27] MEDS: TYLENOL 650 MG PO ×3 (12:53→21:05)
--- NOTE | 2024-07-27 13:56 | CM ---
Met with patient today.
IA completed - refinery operator crude unit to send authorization for records release sent to [place]
Dx: IBS PMH: GERD
CT scan of abdomen-dffuse colonic and rectal wall thickening with some stranding in the adjacent fat consistent with diffuse colitis and likely secondary to known ulcerative colitis.
C-Diff neg
Patient stated she lived in an apt in [facility] prior to [place] admission 06/26-07/09 in which lease ended.
Post [facility] admission was living with a friend in which she stated was short term and will not be staying there again.
She stated she was receiving Home Health from [facility] after her hospitalization.
PLOF: Independent, states did not use a device. States was driving, but sold her car.
No DME - Denies any SNF/REHAB stays in the past
Stated she has an appt with Dr. Juan Roche (GI) on [facility] on 07/31-stated had transportation set up.
Resources provided to the patient: [employer], longterm resources, [employer], [email or web address]
pcp: Dipti Mohan
Pharmacy: [address] [facility]
PLAN: Follow patient progress in hospital, patient has been provided multiple resources
--- NOTE | 2024-07-27 14:17 | W.PN.HOSP.TC ---
Today's Communication/Plan
-
Pain improving
Bowel movement today with dark stools, GI aware
IV steroids will possibly be transitioned to PO steroids tomorrow
Follow-up on Ferritin
Assessment / Plan
Assessment / Plan
Physical Exam
General: No Apparent Distress
HEENT: Normocephalic
Respiratory: Clear
Cardiac: S1/S2 and Regular Rhythm
GI: Soft, Normal Bowel Sounds, Mildly Tender (in the LUQ, LLQ and RLQ) and Other (No guarding or rebound)
Musculoskeletal: No Cyanosis and No Edema
Neuro: AAO x 3
Psych: Calm

Assessment/Plan
Patient with history of inflammatory bowel disease (Crohn's and ulcerative colitis), psoriasis who presented to the emergency department with persistent abdominal pain diarrhea and nausea status post admission for exacerbation in June 2024 at
[facility]. She was discharged on a prednisone taper, mesalamine and given a dose of Remicade prior to discharge. Patient was unable to fill the mesalamine but has continued on the prednisone taper pending follow-up with
metal flooring installer. She is however having persistent to worsening symptoms and unable to wait for the appointment with metal flooring installer. Labs remarkable for anemia with hemoglobin of 8.1 but otherwise stable.
#Presentation with progressive lower abdominal pain and worsening bloody diarrhea for the past few weeks
#GI -abdominal pain, frequent bloody and loose stools, tenderness, consistent with active inflammatory bowel disease. CT scan showed colitis. It appears that she was started on induction therapy to achieve remission but patient is not quite
responding to the steroids, immunomodulators. Based on the treatment approach suggestion that she has more of an ulcerative colitis picture 'patient has also been diagnosed with Crohn's and has psoriasis
- Clear Liquids Diet advanced to Full Liquids diet today
- obtain records from [facility]
- Continue IV steroids
- Appreciate GI evaluation and recommendations
- Follow stool studies microbiology results
- Continue daily PPI
- Per report, patient is homeless
#Anemia - ACD vs Iron def Anemia given intermittently bloody stools for weeks
- Iron studies ordered, follow-up on Ferritin which was not initially ordered.
- LDH normal. folate is normal. vitamin b12 is high.
- Transfuse if hgb < 7
- I Romario Texted on-call roof promenade tile setter Dr. Bray on July 26, 2024 morning, to confirm whether someone with inflammatory bowel disease on immunosuppressive medications needs CMV negative, and irradiated blood (in addition to leukoreduced), but
she mentioned that there is no need for CMV negative and irradiated blood but rather in this case can give regular leukoreduced PRBCs. I appreciate Dr. Bray's assistance.
- 1 unit of PRBC transfused on 07/26/24 with good improvement in Hgb
DVT Prophylaxis - Lovenox subq
Code Status - Full Code
Anticipated Discharge: 24 - 48 hours
Subjective/Interval History
-
Date of Service: July 27, 2024
Patient was seen and examined. She reported pain still, she said she had 'brown pudding' stool, and reported her pain is better. Per nurse, patient had 1 episode of loose dark-colored stool today.
Objective Data
-
Labs:
Laboratory Results
07/27/24
08:01
WBC 6.0
Hgb 8.7 L
Hct 26.8 L
Plt Count 688 H
Sodium 134 L
Potassium 4.4
Chloride 102
Carbon Dioxide 23
BUN 17
Creatinine 0.7
Glucose 131 H
Calcium 8.4
Total Bilirubin < 0.1 L
AST 13 L
ALT 17
Alkaline Phosphatase 719 H
Vital Signs:
Vital Signs
Temp Pulse Resp BP Pulse Ox
97.8 F 65 16 102/69 99
07/27/24 06:25 07/27/24 06:25 07/27/24 06:25 07/27/24 06:25 07/27/24 09:52
I&O
07/26/24 07/27/24 07/28/24
06:59 06:59 06:59
Intake Total 2019
Balance 2019
[2024-07-27 15:20] VITALS: BP 104/64
[2024-07-27] MEDS: LOVENOX 40 MG SC (16:59)
[2024-07-27 23:25] VITALS: BP 108/66
[2024-07-28] VITALS (8 sets, daily range): BP systolic 89–121; BP diastolic 68–80; PULSE 76; O2SAT 95; BMI 22.2
[2024-07-28] MEDS: SOLU-MEDROL PF 20 MG IV ×2 (00:25→08:46)
[2024-07-28] MEDS: LR 1000 IV (00:26)
--- NOTE | 2024-07-28 06:00 | PTCARENOTE ---
Pt rang to go to the bathroom, PCT Ozzy in to assist PT. Per PCT, Pt ambulated to br x1 assist with RW without issues, did not offer any complaints. PCT left Pt in the bathroom and shortly after heard a loud yell and nursing staff found Pt on the
floor. This RN and PCT Ozzy assisted Pt to toilet. Pt states 'It's just going to fast. Stop touching my arms.' This RN was holding Pt's left arm to assure she was safe on the toilet. This RN asked Pt what she meant by 'it's just going too fast.'
Pt states 'you are talking too much, please stop talking to me.' Pt states 'the fluids are just going too fast.' This Rn attempted to have Pt clarify what she meant and she states 'this is too much talking for the bathroom.' Assisted Pt back to bed.
Denied dizziness or sob. Denied any pain. Judy RICE notified and came to assess Pt. Bed alarm and fall risk bracelet applied.
[2024-07-28] MEDS: DILAUDID 0.5 MG IV ×4 (06:17→21:23)
--- NOTE | 2024-07-28 06:21 | W.PN.UPDATE ---
Update Note
Progress Note Update
0620 Seen for pt fall
Pt states was ambulating to bathroom with assistance from PCT and was trying to get into there too fast. She got a bit dizzy and slipped between toilet and trash can landing on buttocks. PAIGE.Slight tenderness to buttock but no visible injury thus
far. Advised for her to tell nurses if she should have more pain later.
[2024-07-28 07:20] LABS: ALT (SGPT) 17 U/L (0-35); AST (SGOT) 12 U/L (14-36); Albumin 2.2 g/dl (3.5-5.0); Alkaline Phosphatase 662 U/L (38-126); Blood Urea Nitrogen 16 mg/dl (7-17); Calcium 8.4 mg/dl (8.4-10.2); Carbon Dioxide 23 mmol/L (22-30); Chloride 102 mmol/L (98-107); Estimated Creatinine Clearance 89 ml/min; Glucose 141 mg/dl (70-99); Magnesium 2.1 mg/dl (1.6-2.3); Potassium 4.8 mmol/L (3.5-5.1); Sodium 134 mmol/L (135-145); Total Bilirubin 0.2 mg/dl (0.2-1.3); Total Protein 4.4 g/dl (6.3-8.2); eGFR > 60.00
[2024-07-28 07:33] LABS: Hematocrit 26.8 % (37.0-47.0); Hemoglobin 8.9 g/dL (12.0-16.0); Mean Corp Hgb Conc. 33.2 g/dL (33.0-37.0); Mean Corpuscular Hgb 30.6 pg (27.0-31.0); Mean Corpuscular Volume 92.1 fL (81.0-99.0); Mean Platelet Volume 8.2 fL (7.4-10.4); Platelet Count 611 10^3/uL (130-400); Red Blood Cell Count 2.91 10^6/uL (4.20-5.40); White Blood Cell Count 6.2 10^3/uL (4.8-10.8)
[2024-07-28 08:09] LABS: % Basophils 0.5 % (0-2); % Immature Granulocytes 0.3 % (0-0.5); % Lymphocytes 12.2 % (20.5-51.1); % Monocytes 4.3 % (1.7-9.3); % Neutrophils 82.7 % (42.2-75.2); Absolute Lymphocytes 0.8 10^3/uL (1.2-3.4); Absolute Monocytes 0.3 10^3/uL (0.1-0.6); Absolute Neutrophils 5.1 10^3/uL (1.4-6.5); Nucleated Red Blood Cells % 0.3 %
--- NOTE | 2024-07-28 08:19 | W.PN.HOSP.TC ---
Today's Communication/Plan
-
IV Fe
advance diet if okay with GI
IVF to be stopped if diet advanced
Assessment / Plan
Assessment / Plan
Assessment/Plan
Patient with history of inflammatory bowel disease (Crohn's and ulcerative colitis), psoriasis who presented to the emergency department with persistent abdominal pain diarrhea and nausea status post admission for exacerbation in June 2024 at
[facility]. She was discharged on a prednisone taper, mesalamine and given a dose of Remicade prior to discharge. Patient was unable to fill the mesalamine but has continued on the prednisone taper pending follow-up with
food product inspector. She is however having persistent to worsening symptoms and unable to wait for the appointment with food product inspector. Labs remarkable for anemia with hemoglobin of 8.1 (on admission)-->8.7-->8.9
#Presentation with progressive lower abdominal pain and worsening bloody diarrhea for the past few weeks
#GI -abdominal pain, frequent bloody and loose stools, tenderness, consistent with active inflammatory bowel disease.
CT scan showed colitis: Diffuse colonic and rectal wall thickening with some stranding in the adjacent fat consistent with diffuse colitis and likely secondary to known ulcerative colitis.
10.8 x 8.4 cm peripherally calcified lesion within the uterus, likely large, partially calcified fibroid.
Atrophic right kidney.
Multilevel degenerative changes of the thoracolumbar spine with grade 1 anterolisthesis of L5 on S1 and bilateral pars defects.
It appears that she was started on induction therapy to achieve remission but patient is not quite responding to the steroids, immunomodulators. Based on the treatment approach suggestion that she has more of an ulcerative colitis picture
'patient has also been diagnosed with Crohn's and has psoriasis
- Clear Liquids Diet advanced to Full Liquids diet 07/27, will advance to Low residue if okay with GI
continue IVF for now, though if diet is advanced will dc IVF
- obtain records from [place] (checked with [employer], has not yet arrived)
- Continue IV steroids
begin to taper as per GI
- Appreciate GI evaluation and recommendations
- Follow stool studies microbiology results
- Continue daily PPI
- Per report, patient is homeless (states she is between homes, details unclear)
#Anemia - ACD vs Iron def Anemia given intermittently bloody stools for weeks
- Iron studies: Ferritin 239, Fe sat unmeasurable
will order IV Fe
- LDH normal. folate is normal. vitamin b12 is high.
- Transfuse if hgb < 7
- Dr. Shyla Doss Texted on-call contracts advisor Dr. Bray on July 26, 2024 morning, to confirm whether someone with inflammatory bowel disease on immunosuppressive medications needs CMV negative, and irradiated blood (in addition to
leukoreduced), but she mentioned that there is no need for CMV negative and irradiated blood but rather in this case can give regular leukoreduced PRBCs. I appreciate Dr. Bray's assistance.
- 1 unit of PRBC transfused on 07/26/24
Pt concerned about weakness and believes she should go to a rehab facility prior to going home
DVT Prophylaxis - Lovenox subq
Code Status - Full Code
Anticipated Discharge: > 48 hours
Subjective/Interval History
-
Date of Service: July 28, 2024
Awake, alert, conversant, states she remains very weak. Went to ground during night, landed onto buttocks, denies residual pain, but she is concerned about risk for recurrent falling
Objective Data
-
Labs:
Laboratory Results
07/28/24
06:36
WBC 6.2
Hgb 8.9 L
Hct 26.8 L
Plt Count 611 H
Sodium 134 L
Potassium 4.8
Chloride 102
Carbon Dioxide 23
BUN 16
Creatinine 0.7
Glucose 141 H
Calcium 8.4
Total Bilirubin 0.2
AST 12 L
ALT 17
Alkaline Phosphatase 662 H
Vital Signs:
Vital Signs
Temp Pulse Resp BP Pulse Ox
98.1 F 57 18 116/72 97
07/28/24 06:13 07/28/24 06:13 07/28/24 06:13 07/28/24 06:13 07/28/24 06:13
I&O
07/27/24 07/28/24 07/29/24
06:59 06:59 06:59
Intake Total 2019 960 / 960
Balance 2019 960 / 960
Review of Systems
-
History Source: Patient and Coordinated Provider
Constitutional: Reports Weakness; Denies Fever (afebrile)
EENT: Reports No Symptoms Reported
Respiratory: Reports No Symptoms
Cardiac: Reports No Symptoms; Denies Chest Pain
Abdomen/GI: Reports Abdominal Pain and Diarrhea (none past 24 hrs, last BM, yesterday afternoon was firming)
Genitourinary: Denies No Symptoms
Physical Exam
-
General: Well Developed, Well Nourished and No Apparent Distress
HEENT: Normocephalic, Atraumatic, Moist Mucous Membranes and Thrush (moderate, on Nystatin)
Respiratory: Clear to Auscultation; Negative Wheezes, Rales or Rhonchi
Cardiac: Regular Rhythm and S1/S2
GI: Soft, Nondistended and Tender (diffusely); Negative Normal Bowel Sounds (hyperactive BS)
Musculoskeletal: No Clubbing, No Cyanosis and No Edema
Neuro: Awake, Alert and Oriented
[2024-07-28] MEDS: TYLENOL 650 MG PO ×3 (08:45→20:22)
[2024-07-28] MEDS: PROTONIX 40 MG PO (08:45)
[2024-07-28] MEDS: LIDOCAINE 4% PATCH 1 PATCH TOPICAL (08:45)
[2024-07-28] MEDS: ZOLOFT 50 MG PO (08:45)
[2024-07-28] MEDS: MYCOSTATIN ORAL SUSPENSION 5 ML PO ×4 (08:46→21:24)
--- NOTE | 2024-07-28 12:56 | W.PN.GI.CBS2 ---
Today's Communication / Plan
-
low residue diet, convert IV steroids to PO
Assessment / Plan
-
54-year-old female with past medical history of GERD, degenerative disc disease with back injury of L4-L5, psoriasis 'Crohn's and colitis'. Initially diagnosed in [address] Marcos Brower and then followed by Dr. Christian Brandon with her first
colonoscopy at that time. The patient states that she was initially started on steroids and is to call followed by a single dose of Remicade in 2003. With second attack in 2010 treated with steroids and Azo call 2010 per patient. With follow-up in
2018 per patient with with colonoscopy and states she was in 'remission' with no need for medication since that time until this June when she required hospitalization at [facility] with treatment with steroids
mesalamine and Remicade initiation on 07/04/2024. Records unavailable to us. She was discharged on steroid taper 60 mg to reduce by 10 mg every 10 days. She did not receive mesalamine due to financial constraints. The patient is homeless. She
was staying with a friend but is unable to do so anymore. She was having 5 bloody bowel movements daily. EMS was called and she was brought to [facility] where we are seeing her now for further recommendations.
Tolerated FLD, overall feels better. Had 1 loose BM today, no blood. Will convert IV steroids to PO (prednisone 60 mg), advance to low residue diet. If tolerates, then can begin d/c planning. Pt has f/u appointment w/ Dr. Roche (GI) in few
weeks. Hopefully social work can address her social issues (homelessness etc).
Total Time Spent with Patient (in minutes): 35
Subjective
Subjective
Date of Service: July 28, 2024
Had 1 loose BM today, pain is somewhat improved but not resolved.
Objective
Data Reviewed
Laboratory Data:
Laboratory Results
07/28/24 06:36
07/28/24 06:36
Laboratory Results
Magnesium 2.1 mg/dl (1.6-2.3) 07/28/24 06:36
Total Bilirubin 0.2 mg/dl (0.2-1.3) 07/28/24 06:36
AST 12 U/L (14-36) L 07/28/24 06:36
ALT 17 U/L (0-35) 07/28/24 06:36
Alkaline Phosphatase 662 U/L (38-126) H 07/28/24 06:36
Lipase 33 U/L (23-300) 07/25/24 20:26
Vital Signs and I&O:
Vital Signs
Temp Pulse Resp BP Pulse Ox
97.6 F 72 16 103/70 98
07/28/24 07:25 07/28/24 07:25 07/28/24 07:25 07/28/24 09:42 07/28/24 07:25
I&O
07/27/24 07/28/24 07/29/24
06:59 06:59 06:59
Intake Total 2019 960 / 960
Balance 2019 960 / 960
--- NOTE | 2024-07-28 13:06 | W.PN.GI.CBS2 ---
Today's Communication / Plan
-
continue steroids
follow up with Dr. Roche who is her primary GI on 07/31/24
Low residue diet
Assessment / Plan
-
54-year-old female with past medical history of GERD, degenerative disc disease with back injury of L4-L5, psoriasis 'Crohn's and colitis'. Initially diagnosed in [address] Marcos Brower and then followed by Dr. Christian Brandon with her first
colonoscopy at that time. The patient states that she was initially started on steroids and is to call followed by a single dose of Remicade in 2003. With second attack in 2010 treated with steroids and Asacol 2010 per patient. With follow-up in
[address] Roche with colonoscopy and states she was in 'remission' with no need for medication since that time until this June when she required hospitalization at [facility] with treatment with steroids
mesalamine and Remicade initiation on 07/04/2024. Records unavailable to us. She was discharged on steroid taper 60 mg to reduce by 10 mg every 10 days. She did not receive mesalamine due to financial constraints. The patient is homeless. She
was staying with a friend but is unable to do so anymore. She was having 5 bloody bowel movements daily. EMS was called and she was brought to [facility] where we are seeing her now for further recommendations.
--07/28/24 Stool is negative for C. difficile. Negative stool culture. I discussed with Dr. Kong who did her flexible sigmoidoscopy on 06/27/2024. He states he was able to advance to 20 cm secondary to angulation and edema. He states there was
erythema and serpentine like ulcers. He states there was also cobblestoning. This appeared Crohn's like in appearance. He did not have other records available to him at that time. He states at that time the patient was on IV steroids. I did
place a call out to the physician who rounded after him and doctor who the patient follows with as an outpatient Dr. Juan Roche and I am awaiting his return phone call.
Tolerating low residue diet. Had 1 brown yesterday and loose brown BM today, no blood. Will convert IV steroids to PO (prednisone 60 mg). If tolerates, then can begin d/c planning. Pt has f/u appointment w/ Dr. Roche (GI) on 07/31/2024.
Hopefully social work can address her social issues (homelessness etc).
Subjective
Subjective
Date of Service: July 28, 2024
Patient with loose brown stool x1 for the past 2 days. Tolerated clears without any difficulty. Diet advanced to low residue diet. We did not receive any records from [facility] additives of yet however I did reach out to the
physicians who treated her while hospitalized. Patient's hemoglobin is stable. No signs of bleeding. Stool is negative for C. difficile. Negative stool culture. I discussed with Dr. Kong who did her flexible sigmoidoscopy on 06/27/2024. He
states he was able to advance to 20 cm secondary to angulation and edema. He states there was erythema and serpentine like ulcers. He states there was also cobblestoning. This appeared Crohn's like in appearance. He did not have other records
available to him at that time. He states at that time the patient was on IV steroids. I did place a call out to the physician who rounded after him and doctor who the patient follows with as an outpatient Dr. Juan Roche and I am awaiting his
return phone call.
Objective
Data Reviewed
Laboratory Data:
Laboratory Results
07/28/24 06:36
07/28/24 06:36
Laboratory Results
Magnesium 2.1 mg/dl (1.6-2.3) 07/28/24 06:36
Total Bilirubin 0.2 mg/dl (0.2-1.3) 07/28/24 06:36
AST 12 U/L (14-36) L 07/28/24 06:36
ALT 17 U/L (0-35) 07/28/24 06:36
Alkaline Phosphatase 662 U/L (38-126) H 07/28/24 06:36
Lipase 33 U/L (23-300) 07/25/24 20:26
Vital Signs and I&O:
Vital Signs
Temp Pulse Resp BP Pulse Ox
97.6 F 72 16 103/70 98
07/28/24 07:25 07/28/24 07:25 07/28/24 07:25 07/28/24 09:42 07/28/24 07:25
I&O
07/27/24 07/28/24 07/29/24
06:59 06:59 06:59
Intake Total 2019 960 / 960
Balance 2019 960 / 960
Physical Exam
Physical Exam
HEENT: Anicteric
Cardiology: Normal Sinus Rhythm
Pulmonary: Clear
GI: Soft, Non Distended, Non Tender and Normal Bowel Sounds
Rectal: Other (Loose brown bowel movement observed inpatient commode, no signs of bleeding)
Extremities: No Edema
Neuro: Non Focal
--- NOTE | 2024-07-28 13:25 | PN.CDI ---
CDI
- -
CDI:
Physician Documentation Request
Admit Date: 07/26/24 02:25
Dear Doctor Demetria,
Please review the following and provide your response in the progress notes.
Clinical Indicators:
PN, 07/28
#Anemia - ACD vs Iron def Anemia given intermittently bloody stools for weeks
#- Iron studies: Ferritin 239, Fe sat unmeasurable
#...will order IV Fe
#- Transfuse if hgb < 7
Laboratory Tests
07/25/24 07/26/24 07/26/24
20:26 06:32 22:52
Hgb 8.1 L 6.9 L* 8.3 L D
07/27/24 07/28/24
08:01 06:36
Hgb 8.7 L 8.9 L
#07/26 Transfused 1 unit PRBCs
Based on the above and your clinical assessment, please clarify, in the progress note, which of the following is the most likely type of anemia evaluated, monitored and/or treated?
Acute blood loss anemia with baseline chronic iron deficiency anemia
Anemia of chronic disease - indicate if neoplastic, CKD or other
Other (please specify)
Use of terms such as suspected, likely, concern for, or probable (associated with a specific diagnosis that is being evaluated, monitored, or treated as if it exists) are acceptable and can be coded in the inpatient setting, when documented at the
time of discharge.
Thank you,
Nayla Isaacs RN BSN CCDS
CDI Specialist
please contact via tiger text
Please use your independent medical judgment in providing your response.
[2024-07-28] MEDS: DELTASONE 60 MG PO (13:27)
[2024-07-28] MEDS: FERRLECIT 110 MG IV (13:28)
--- NOTE | 2024-07-28 13:39 | PN.CDI ---
CDI
- -
CDI:
Physician Documentation Request
Admit Date: 07/26/24 02:25
Dear Doctor Demetria,
Please review the following and provide your response in the progress notes.
Clinical Indicators:
Laboratory Tests
07/25/24 07/26/24 07/27/24
20:26 06:32 08:01
Sodium 132 L 133 L 134 L
07/28/24
06:36
Sodium 134 L
Based on the above, please clarify in the progress notes, the appropriate diagnosis, if significant, that supports the above abnormalities and additional evaluation, monitoring and/or treatment rendered:
Hyponatremia
Abnormal lab value, clinically insignificant
Other(please specify)
Use of terms such as suspected, likely, concern for, or probable (associated with a specific diagnosis that is being evaluated, monitored, or treated as if it exists) are acceptable and can be coded in the inpatient setting, when documented at the
time of discharge.
Thank you,
Nayla Isaacs RN BSN CCDS
CDI Specialist
please contact via tiger text
Please use your independent medical judgment in providing your response.
--- NOTE | 2024-07-28 16:03 | CM ---
Patient seen at bedside.
Per nursing note patient found on bathroom floor this am.
PT recommending SNF.
Options reviewed with patient. Discussed CM will need to also get ins authorization.
[facility]
PLAN: SNF, pending bed availability and insurance authorization
[2024-07-28] MEDS: LOVENOX 40 MG SC (17:53)
[2024-07-29 03:42] VITALS: BP 118/77
[2024-07-29] MEDS: DILAUDID 0.5 MG IV ×2 (03:43→07:51)
[2024-07-29 07:08] LABS: Hematocrit 24.2 % (37.0-47.0); Hemoglobin 7.8 g/dL (12.0-16.0); Mean Corp Hgb Conc. 32.2 g/dL (33.0-37.0); Mean Corpuscular Hgb 28.8 pg (27.0-31.0); Mean Corpuscular Volume 89.3 fL (81.0-99.0); Mean Platelet Volume 8.3 fL (7.4-10.4); Platelet Count 553 10^3/uL (130-400); Red Blood Cell Count 2.71 10^6/uL (4.20-5.40); Red Cell Dist. Width 17.7 % (11.5-14.5); White Blood Cell Count 6.7 10^3/uL (4.8-10.8)
[2024-07-29 07:25] VITALS: BP 116/79
[2024-07-29 07:29] LABS: ALT (SGPT) 17 U/L (0-35); AST (SGOT) 12 U/L (14-36); Alkaline Phosphatase 539 U/L (38-126); Blood Urea Nitrogen 17 mg/dl (7-17); Calcium 8.3 mg/dl (8.4-10.2); Carbon Dioxide 26 mmol/L (22-30); Chloride 101 mmol/L (98-107); Estimated Creatinine Clearance 89 ml/min; Glucose 108 mg/dl (70-99); Potassium 4.3 mmol/L (3.5-5.1); Sodium 134 mmol/L (135-145); Total Bilirubin 0.1 mg/dl (0.2-1.3); Total Protein 4.1 g/dl (6.3-8.2); eGFR > 60.00
[2024-07-29] MEDS: ZOLOFT 50 MG PO (07:47)
[2024-07-29] MEDS: LIDOCAINE 4% PATCH 1 PATCH TOPICAL (07:47)
[2024-07-29] MEDS: PROTONIX 40 MG PO (07:47)
[2024-07-29] MEDS: MYCOSTATIN ORAL SUSPENSION 5 ML PO ×4 (07:47→21:48)
[2024-07-29] MEDS: DELTASONE 60 MG PO (07:51)
--- NOTE | 2024-07-29 08:13 | W.PN.HOSP.TC ---
Today's Communication/Plan
-
continue oral Prednisone
change narcotics to oral
recheck Hgb in AM, trnafuse if drops further
continue IV Fe
Assessment / Plan
Assessment / Plan
Assessment/Plan
Patient with history of inflammatory bowel disease (Crohn's and ulcerative colitis), psoriasis who presented to the emergency department with persistent abdominal pain diarrhea and nausea status post admission for exacerbation in June 2024 at
[facility]. She was discharged on a prednisone taper, mesalamine and given a dose of Remicade prior to discharge. Patient was unable to fill the mesalamine but has continued on the prednisone taper pending follow-up with
recordist. She is however having persistent to worsening symptoms and unable to wait for the appointment with recordist. Labs remarkable for anemia with hemoglobin of 8.1 (on admission)-->8.7-->8.9-->7.8
will recheck Hgb in AM, if improves will hold off on further transfusion
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
#GI -abdominal pain, frequent bloody and loose stools, tenderness, consistent with active inflammatory bowel disease.
CT scan showed colitis: Diffuse colonic and rectal wall thickening with some stranding in the adjacent fat consistent with diffuse colitis and likely secondary to known ulcerative colitis.
10.8 x 8.4 cm peripherally calcified lesion within the uterus, likely large, partially calcified fibroid.
Atrophic right kidney.
Multilevel degenerative changes of the thoracolumbar spine with grade 1 anterolisthesis of L5 on S1 and bilateral pars defects.
It appears that she was started on induction therapy to achieve remission but patient is not quite responding to the steroids, immunomodulators. Based on the treatment approach suggestion that she has more of an ulcerative colitis picture
'patient has also been diagnosed with Crohn's and has psoriasis
Still with abd pain, will stop Dilaudid and order prn oxy and Tramadol instead
- Clear Liquids Diet advanced to Full Liquids diet 07/27, advanced to Low residue 07/28 which she is tolerating
stopped IVF
- IV steroids changed to Prednisone 60 mg daily
- Appreciate GI evaluation and recommendations, will need outpt follow up with her GI doctor
- Follow stool studies microbiology results
- Continue daily PPI
- Per report, patient is homeless (states she is between homes, details unclear)
#Anemia - ACD vs Iron def Anemia given intermittently bloody stools for weeks
received 1 unit PRBC on 07/26
- Iron studies: Ferritin 239, Fe sat unmeasurable
IV Fe started
- LDH normal. folate is normal. vitamin b12 is high.
- Transfuse if hgb < 7
- Dr. Shyla Doss Texted on-call cataloging assistant Dr. Bray on July 26, 2024 morning, to confirm whether someone with inflammatory bowel disease on immunosuppressive medications needs CMV negative, and irradiated blood (in addition to
leukoreduced), but she mentioned that there is no need for CMV negative and irradiated blood but rather in this case can give regular leukoreduced PRBCs. I appreciate Dr. Bray's assistance.
- 1 unit of PRBC transfused on 07/26/24
Pt concerned about weakness and believes she should go to a rehab facility prior to going home
await CM and insurance prior auth. PT/OT input recommending SNF appreciated
DVT Prophylaxis - Lovenox subq
Code Status - Full Code
multiple issues, complex visit
Anticipated Discharge: 24 - 48 hours
Subjective/Interval History
-
Date of Service: July 29, 2024
Stool has firmed, pt states BMx3 past 24 hrs, consistency of pudding
Objective Data
-
Labs:
Laboratory Results
07/29/24
06:04
WBC 6.7
Hgb 7.8 L
Hct 24.2 L
Plt Count 553 H
Sodium 134 L
Potassium 4.3
Chloride 101
Carbon Dioxide 26
BUN 17
Creatinine 0.7
Glucose 108 H
Calcium 8.3 L
Total Bilirubin 0.1 L
AST 12 L
ALT 17
Alkaline Phosphatase 539 H
Vital Signs:
Vital Signs
Temp Pulse Resp BP Pulse Ox
98.5 F 50 16 118/77 95
07/28/24 23:10 07/29/24 03:42 07/28/24 23:10 07/29/24 03:42 07/28/24 23:10
I&O
07/28/24 07/29/24 07/30/24
06:59 06:59 06:59
Intake Total 960 / 960 2290 / 2290
Balance 960 / 960 2290 / 2290
Review of Systems
-
History Source: Patient and Coordinated Provider
Constitutional: Reports Weakness; Denies Fever (afebrile)
EENT: Reports No Symptoms Reported
Respiratory: Reports No Symptoms
Cardiac: Reports No Symptoms; Denies Chest Pain
Abdomen/GI: Reports Abdominal Pain (still with pain) and Diarrhea (BM x3 past 24 hrs)
Genitourinary: Denies No Symptoms
Physical Exam
-
General: Well Developed, Well Nourished and No Apparent Distress
HEENT: Normocephalic, Atraumatic, Moist Mucous Membranes and Thrush (moderate, on Nystatin)
Respiratory: Clear to Auscultation; Negative Wheezes, Rales or Rhonchi
Cardiac: Regular Rhythm and S1/S2
GI: Soft, Nondistended and Tender (diffusely); Negative Normal Bowel Sounds (hyperactive BS)
Musculoskeletal: No Clubbing, No Cyanosis and No Edema
Neuro: Awake, Alert and Oriented
[2024-07-29 08:40] LABS: Segmented Neutrophils 74 % (42-75)
[2024-07-29 08:41] LABS: Absolute Neutrophils -Man Diff 5.9 10^3/uL (1.4-6.5); Band Neutrophils 15 % (0-3); Lymphocytes 4 % (20-51); Monocytes 6 % (2-9); Myelocytes 1 % (-); Platelets Checked Yes
[2024-07-29 08:42] LABS: Anisocytosis 2+; Hypochromasia 2+; Normal RBC Morphology No; Polychromasia 1+; Total Cells Counted 100
--- NOTE | 2024-07-29 10:21 | PTCARENOTE ---
pt states 9/10 pain in abd. pain med given as ordered. pt min 1 person assist with walker to bathroom. having loose stool.
[2024-07-29] MEDS: PERCOCET 5/325 1 TABLET PO ×3 (10:49→21:47)
--- NOTE | 2024-07-29 11:04 | W.PN.GI.CBS2 ---
Today's Communication / Plan
-
Add iron panel
C/w oral steroid taper
OP GI FU with Dr Jacques
Awaiting placement given homelessness
GI will sign off please call for questions
Assessment / Plan
-
54-year-old female with past medical history of GERD, degenerative disc disease with back injury of L4-L5, psoriasis 'Crohn's and colitis'. Initially diagnosed in [address] Marcos Brower and then followed by Dr. Christian Brandon with her first
colonoscopy at that time. The patient states that she was initially started on steroids and is to call followed by a single dose of Remicade in 2003. With second attack in 2010 treated with steroids and Asacol 2010 per patient. With follow-up in
[address] Roche with colonoscopy and states she was in 'remission' with no need for medication since that time until this June when she required hospitalization at [facility] with treatment with steroids
mesalamine and Remicade initiation on 07/04/2024. Records unavailable to us. She was discharged on steroid taper 60 mg to reduce by 10 mg every 10 days. She did not receive mesalamine due to financial constraints. The patient is homeless. She
was staying with a friend but is unable to do so anymore. She was having 5 bloody bowel movements daily. EMS was called and she was brought to [place] where we are seeing her now for further recommendations. CTAP with colitis and
proctitis. Dr. Kong who did her flexible sigmoidoscopy on 06/27/2024. He states he was able to advance to 20 cm secondary to angulation and edema. He states there was erythema and serpentine like ulcers. He states there was also cobblestoning.
This appeared Crohn's like in appearance.
Impression
- Indeterminant IBD suspect crohn's diagnosed 2003
- Anemia
- Homelessness
Recommendations
- She is tolerating low residue diet
- C/w oral steroid. Upon d/c to do taper 60mg daily x7day, down every 10mg for 7 days
- She is pending placement given homelessness
- She will FU with her GI Dr Juan Roche and has appt 07/31
- Serial H/H. Her anemia and intermittent chronic abd pain related to her known IBD. Add iron panel
Will follow with you
Subjective
Subjective
Date of Service: July 29, 2024
She is tolerating diet. BMs 1-2x/day documented as green per nursing. She was weaned off opioids and c/o increased abd pain today. Denies nausea/vomiting
Objective
Data Reviewed
Laboratory Data:
Laboratory Results
07/29/24 06:04
07/29/24 06:04
Laboratory Results
Magnesium 2.1 mg/dl (1.6-2.3) 07/28/24 06:36
Total Bilirubin 0.1 mg/dl (0.2-1.3) L 07/29/24 06:04
AST 12 U/L (14-36) L 07/29/24 06:04
ALT 17 U/L (0-35) 07/29/24 06:04
Alkaline Phosphatase 539 U/L (38-126) H 07/29/24 06:04
Lipase 33 U/L (23-300) 07/25/24 20:26
Vital Signs and I&O:
Vital Signs
Temp Pulse Resp BP Pulse Ox
98.2 F 57 16 116/79 100
07/29/24 07:25 07/29/24 07:25 07/29/24 07:25 07/29/24 07:25 07/29/24 07:25
I&O
07/28/24 07/29/24 07/30/24
06:59 06:59 06:59
Intake Total 960 / 960 2290 / 2290
Balance 960 / 960 2290 / 2290
Physical Exam
Physical Exam
GEN: No acute distress, conversant, pleasant
HEENT: anicteric, extraocular movements intact, clear oropharynx without exudates
GI: soft, non-distended, mildly tender to palpation, normal active bowel sounds, no hepatosplenomegaly
EXT: warm, well perfused, trace edema bilaterally
NEURO: AAOx3, non-focal
[2024-07-29 11:51] LABS: Iron 28 ug/dl (37-170)
[2024-07-29 12:00] LABS: Percent Saturation 25 % (20-50); Total Iron Binding Capacity 112 ug/dl (265-497)
[2024-07-29 12:58] LABS: Vitamin B12 > 1000 pg/ml (239-931)
[2024-07-29] MEDS: FERRLECIT 110 MG IV (13:41)
[2024-07-29 14:30] VITALS: BP 122/86
[2024-07-29] MEDS: ULTRAM 50 MG PO (14:57)
--- NOTE | 2024-07-29 16:25 | CM ---
Reviewed the chart notes and spoke with the patient at the bedside. Discussed with patient SNFs willing to accept patient. She will review ratings and decide. CM continues to be available to patient/family and is monitoring medical plan for needs
at discharge.
Plan: Discharge to SNF/rehab when bed found and precert obtained.
[2024-07-29] MEDS: LOVENOX 40 MG SC (17:39)
[2024-07-29] MEDS: TYLENOL 650 MG PO (20:40)
[2024-07-29 23:23] VITALS: BP 102/67
[2024-07-30] MEDS: PERCOCET 5/325 1 TABLET PO ×5 (03:55→20:36)
[2024-07-30] MEDS: TYLENOL 650 MG PO ×2 (05:58→22:20)
[2024-07-30 07:13] LABS: Hematocrit 27.9 % (37.0-47.0); Hemoglobin 8.8 g/dL (12.0-16.0); Mean Corp Hgb Conc. 31.5 g/dL (33.0-37.0); Mean Corpuscular Volume 92.1 fL (81.0-99.0); Mean Platelet Volume 8.3 fL (7.4-10.4); Platelet Count 568 10^3/uL (130-400); Red Blood Cell Count 3.03 10^6/uL (4.20-5.40); Red Cell Dist. Width 17.8 % (11.5-14.5); White Blood Cell Count 6.3 10^3/uL (4.8-10.8)
[2024-07-30 07:25] VITALS: BP 104/65
[2024-07-30] MEDS: LIDOCAINE 4% PATCH 1 PATCH TOPICAL (08:04)
[2024-07-30] MEDS: ZOLOFT 50 MG PO (08:04)
[2024-07-30] MEDS: MYCOSTATIN ORAL SUSPENSION 5 ML PO ×4 (08:04→22:17)
[2024-07-30] MEDS: PROTONIX 40 MG PO (08:04)
[2024-07-30] MEDS: DELTASONE 60 MG PO (08:04)
[2024-07-30 08:07] LABS: Absolute Neutrophils -Man Diff 4.7 10^3/uL (1.4-6.5); Band Neutrophils 16 % (0-3); Lymphocytes 18 % (20-51); Metamyelocytes 2 % (-); Monocytes 4 % (2-9); Normal RBC Morphology No; Platelets Checked Yes; Segmented Neutrophils 60 % (42-75)
[2024-07-30 08:08] LABS: Anisocytosis 1+; Hypochromasia 1+; Macrocytosis 1+; Total Cells Counted 100
[2024-07-30] MEDS: MYLICON 80 MG PO ×3 (08:46→16:35)
[2024-07-30 09:44] VITALS: BP 102/72; PULSE 100; O2SAT 93
[2024-07-30 09:59] VITALS: BP 102/72; PULSE 100; O2SAT 93
[2024-07-30] MEDS: ULTRAM 50 MG PO (10:40)
[2024-07-30] MEDS: FERRLECIT 110 MG IV (12:33)
--- NOTE | 2024-07-30 14:06 | W.PN.HOSP.TC ---
Today's Communication/Plan
-
request GI reeval
await CM difficult disposition arrangments
Assessment / Plan
Assessment / Plan
Assessment/Plan
Patient with history of inflammatory bowel disease (Crohn's and ulcerative colitis), psoriasis who presented to the emergency department with persistent abdominal pain diarrhea and nausea status post admission for exacerbation in June 2024 at
[facility]. She was discharged on a prednisone taper, mesalamine and given a dose of Remicade prior to discharge. Patient was unable to fill the mesalamine but has continued on the prednisone taper pending follow-up with
weed burner. She is however having persistent to worsening symptoms and unable to wait for the appointment with weed burner. Labs remarkable for anemia with hemoglobin of 8.1 (on admission)-->8.7-->8.9-->7.8-->8.8
(Hgb of 7.8, probable lab error/variance)
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
#GI -abdominal pain, frequent bloody and loose stools, tenderness, consistent with active inflammatory bowel disease.
CT scan showed colitis: Diffuse colonic and rectal wall thickening with some stranding in the adjacent fat consistent with diffuse colitis and likely secondary to known ulcerative colitis.
10.8 x 8.4 cm peripherally calcified lesion within the uterus, likely large, partially calcified fibroid.
Atrophic right kidney.
Multilevel degenerative changes of the thoracolumbar spine with grade 1 anterolisthesis of L5 on S1 and bilateral pars defects.
It appears that she was started on induction therapy to achieve remission but patient is not quite responding to the steroids, immunomodulators. Based on the treatment approach suggestion that she has more of an ulcerative colitis picture
'patient has also been diagnosed with Crohn's and has psoriasis
Still with abd pain, will stop Dilaudid and order prn oxy and Tramadol instead
Hyponatremia Na 134 most likely associated with diarrhea
Acute blood loss anemia with baseline chronic iron deficiency anemia
- Clear Liquids Diet advanced to Full Liquids diet 07/27, advanced to Low residue 07/28 which she is tolerating
stopped IVF
- IV steroids changed to Prednisone 60 mg daily
- Appreciate GI evaluation and recommendations, will need outpt follow up with her GI doctor
Today (07/30) pt is very symptomatic. Discussed with Dr. Rodriguez with request to reevaluate.
Also discussed with CM placement issues. Pt was to see her outpt GI doctor, but with acute process, can not send her out and need for CM to arrange dispo
- Follow stool studies microbiology results
- Continue daily PPI
- Per report, patient is homeless (states she is between homes, details unclear)
#Anemia - ACD vs Iron def Anemia given intermittently bloody stools for weeks
received 1 unit PRBC on 07/26
- Iron studies: Ferritin 239, Fe sat unmeasurable
IV Fe started
- LDH normal. folate is normal. vitamin b12 is high.
- Transfuse if hgb < 7
- Dr. Shyla Doss Texted on-call operations research engineer Dr. Bray on July 26, 2024 morning, to confirm whether someone with inflammatory bowel disease on immunosuppressive medications needs CMV negative, and irradiated blood (in addition to
leukoreduced), but she mentioned that there is no need for CMV negative and irradiated blood but rather in this case can give regular leukoreduced PRBCs. I appreciate Dr. Bray's assistance.
- 1 unit of PRBC transfused on 07/26/24
Pt concerned about weakness and believes she should go to a rehab facility prior to going home
await CM and insurance prior auth. PT/OT input recommending SNF appreciated
DVT Prophylaxis - Lovenox subq
Code Status - Full Code
multiple issues, complex visit
Anticipated Discharge: 24 - 48 hours
Subjective/Interval History
-
Date of Service: July 30, 2024
Having a lot of abd pain, diarrhea, very upset
Objective Data
-
Labs:
Laboratory Results
07/30/24
06:14
WBC 6.3
Hgb 8.8 L
Hct 27.9 L
Plt Count 568 H
Vital Signs:
Vital Signs
Temp Pulse Resp BP Pulse Ox
98.7 F 88 18 104/65 100
07/30/24 07:25 07/30/24 07:25 07/30/24 07:25 07/30/24 07:25 07/30/24 07:25
I&O
07/29/24 07/30/24 07/31/24
06:59 06:59 06:59
Intake Total 2290 / 2290 2270 / 2270
Balance 2290 / 2290 2270 / 2270
Review of Systems
-
History Source: Patient and Coordinated Provider
Constitutional: Reports Weakness; Denies Fever (afebrile)
EENT: Reports No Symptoms Reported
Respiratory: Reports No Symptoms
Cardiac: Reports No Symptoms; Denies Chest Pain
Abdomen/GI: Reports Abdominal Pain (still with pain) and Diarrhea (BM x3 past 24 hrs, just had an episode, very liquidy)
Genitourinary: Denies No Symptoms
Physical Exam
-
General: Well Developed, Well Nourished and No Apparent Distress
HEENT: Normocephalic, Atraumatic, Moist Mucous Membranes and Thrush (moderate, on Nystatin)
Respiratory: Clear to Auscultation; Negative Wheezes, Rales or Rhonchi
Cardiac: Regular Rhythm and S1/S2
GI: Soft, Nondistended and Tender (diffusely); Negative Normal Bowel Sounds (hyperactive BS)
Musculoskeletal: No Clubbing, No Cyanosis and No Edema
Neuro: Awake, Alert and Oriented
--- NOTE | 2024-07-30 14:47 | CM ---
Reviewed the chart notes and spoke with the patient at the bedside. Additional referrals sent today. Discuss with the patient the facilities that have beds available. Patient selected [facility]. Auth will be started. CM continues to be
available to patient/family and is monitoring medical plan for needs at discharge.
Plan: Discharge to [facility] once auth obtained.
--- NOTE | 2024-07-30 15:22 | W.PN.GI.CBS2 ---
Today's Communication / Plan
-
CTAP IV and oral contrast
NPO ok for meds given worsening abd pain of unclear cause
Revert back to IV steroid
Monitor stool output
Assessment / Plan
-
54-year-old female with past medical history of GERD, degenerative disc disease with back injury of L4-L5, psoriasis 'Crohn's and colitis'. Initially diagnosed in [address] Marcos Brower and then followed by Dr. Christian Brandon with her first
colonoscopy at that time. The patient states that she was initially started on steroids and is to call followed by a single dose of Remicade in 2003. With second attack in 2010 treated with steroids and Asacol 2010 per patient. With follow-up in
[address] Roche with colonoscopy and states she was in 'remission' with no need for medication since that time until this June when she required hospitalization at [facility] with treatment with steroids
mesalamine and Remicade initiation on 07/04/2024. Records unavailable to us. She was discharged on steroid taper 60 mg to reduce by 10 mg every 10 days. She did not receive mesalamine due to financial constraints. The patient is homeless. She
was staying with a friend but is unable to do so anymore. She was having 5 bloody bowel movements daily. EMS was called and she was brought to [facility] where we are seeing her now for further recommendations. CTAP with colitis and
proctitis. Dr. Kong who did her flexible sigmoidoscopy on 06/27/2024. He states he was able to advance to 20 cm secondary to angulation and edema. He states there was erythema and serpentine like ulcers. He states there was also cobblestoning.
This appeared Crohn's like in appearance.
Impression
- Indeterminant IBD suspect crohn's diagnosed 2003
- Anemia
- Homelessness
Recommendations
- Given worsening abd pain. Repeat CTAP with IV and oral contrast
- Revert back to NPO ok for meds. If abd pain is severe would keep NPO until scan can be done.
- C/w steroid revert back to IV
- She is pending placement given homelessness
- She will FU with her GI Dr Juan Roche outpatient.
- Serial H/H. Her anemia and intermittent chronic abd pain related to her known IBD
Will follow with you
Subjective
Subjective
Date of Service: July 30, 2024
She reports 8 out of 10 nature of abd pain last night until this AM. However eating welsh cheese hamburger without issue. No nausea/vomiting. reports diarrhea
Objective
Data Reviewed
Laboratory Data:
Laboratory Results
07/30/24 06:14
07/29/24 06:04
Laboratory Results
Magnesium 2.1 mg/dl (1.6-2.3) 07/28/24 06:36
Total Bilirubin 0.1 mg/dl (0.2-1.3) L 07/29/24 06:04
AST 12 U/L (14-36) L 07/29/24 06:04
ALT 17 U/L (0-35) 07/29/24 06:04
Alkaline Phosphatase 539 U/L (38-126) H 07/29/24 06:04
Lipase 33 U/L (23-300) 07/25/24 20:26
Vital Signs and I&O:
Vital Signs
Temp Pulse Resp BP Pulse Ox
98.7 F 88 18 104/65 100
07/30/24 07:25 07/30/24 07:25 07/30/24 07:25 07/30/24 07:25 07/30/24 07:25
I&O
07/29/24 07/30/24 07/31/24
06:59 06:59 06:59
Intake Total 2290 / 2290 2270 / 2270
Balance 2290 / 2290 2270 / 2270
Physical Exam
Physical Exam
GEN: No acute distress, conversant, pleasant
HEENT: anicteric, extraocular movements intact, clear oropharynx without exudates
GI: soft, non-distended, diffusely tender to palpation, normal active bowel sounds, no hepatosplenomegaly
EXT: warm, well perfused, trace edema bilaterally
NEURO: AAOx3, non-focal
[2024-07-30 15:30] VITALS: BP 110/73
[2024-07-30] MEDS: LOVENOX 40 MG SC (16:35)
[2024-07-30 23:03] VITALS: BP 109/72
[2024-07-31] MEDS: PERCOCET 5/325 1 TABLET PO ×2 (02:19→07:56)
[2024-07-31] MEDS: OMNIPAQUE 50 ML PO (05:52)
[2024-07-31 07:25] VITALS: BP 125/75
[2024-07-31] MEDS: ZOLOFT 50 MG PO (07:56)
[2024-07-31] MEDS: PROTONIX 40 MG PO (07:56)
[2024-07-31] MEDS: MYCOSTATIN ORAL SUSPENSION 5 ML PO ×3 (07:56→20:47)
[2024-07-31] MEDS: LIDOCAINE 4% PATCH 1 PATCH TOPICAL (08:02)
[2024-07-31] MEDS: DELTASONE PO (08:12)
[2024-07-31 08:42] LABS: ALT (SGPT) 30 U/L (0-35); AST (SGOT) 22 U/L (14-36); Albumin 2.2 g/dl (3.5-5.0); Alkaline Phosphatase 528 U/L (38-126); Blood Urea Nitrogen 16 mg/dl (7-17); Calcium 8.5 mg/dl (8.4-10.2); Carbon Dioxide 26 mmol/L (22-30); Chloride 100 mmol/L (98-107); Estimated Creatinine Clearance 104 ml/min; Glucose 77 mg/dl (70-99); Potassium 4.2 mmol/L (3.5-5.1); Sodium 136 mmol/L (135-145); Total Bilirubin 0.1 mg/dl (0.2-1.3); Total Protein 4.6 g/dl (6.3-8.2); eGFR > 60.00
--- NOTE | 2024-07-31 09:00 | W.PN.GI.CBS2 ---
Addendum entered and electronically signed by Zandra Chris Do, MD 07/31/24 11:26:
I saw and examined the patient.
The SOLAR HOT WATER INSTALLER's note was reviewed and I agree with the note.
Comment: She continues to report 10 out of 10 abd pain despite desire to have diet. VSS exam TTP out of proportion to exam. Labs reviewed. CMP added. CTAP wtih oral and IV with some colonic dilation and possible ileus. No significant
thickening of bowel wall but limited due to lack of oral contrast.
Recommendations
- Adv to CLD
- C/w oral steroid
- Await stool studies
- Anticipate advancement diet tomorrow if tolerates
- Monitor all stool output
- OOB ambulate as much as possible
Will follow with you
Addendum entered and electronically signed by KRYSTAL Cleveland 07/31/24 10:19:
07/31/24 CT A/p IV and oral:
Lack of oral contrast opacification of large bowel with markedly distended large bowel through to the proximal sigmoid colon with air and fluid, smooth elongated tapering to normal caliber mid to distal sigmoid with sigmoid and rectal liquid stool,
findings possibly representing ileus associated with patient's known IBD. No free air.
New tiny left pleural effusion and accompanying bilateral lower lobe subsegmental atelectasis.
Atrophic right kidney again noted.
Large uterine lesion again seen likely representing degenerated leiomyoma.
Mildly distended gallbladder again suspected. No findings to suggest biliary tract dilatation.
will review with CT with Dr. Rodriguez as pt asking for clear diet
pt will need to reschedule follow up with Dr. Shook as due for follow up today
Original Note:
Today's Communication / Plan
-
still with abdominal pain 8 1/2 out of 10
s/p CT completed await results
variable stools last formed but may have loose stool today with recent contrast
cont NPO as still increased pain
pain control per hospitalist
remain on Prednisone 60mg daily since 08/25
cont PPI use with prednisone use
Pt working with case management for SNF placement
cont to trend hbg 8.9--7.8--8.8
- She will FU with her GI Dr Juan Roche outpatient.
cont Lovenox as increased DVT risk with active IBD
Will follow with you
Assessment / Plan
-
54-year-old female with past medical history of GERD, degenerative disc disease with back injury of L4-L5, psoriasis 'Crohn's and colitis'. Initially diagnosed in [address] Marcos Brower and then followed by Dr. Christian Brandon with her first
colonoscopy at that time. The patient states that she was initially started on steroids and is to call followed by a single dose of Remicade in 2003. With second attack in 2010 treated with steroids and Asacol 2010 per patient. With follow-up in
[address] Roche with colonoscopy and states she was in 'remission' with no need for medication since that time until this June when she required hospitalization at [facility] with treatment with steroids
mesalamine and Remicade initiation on 07/04/2024.
She was discharged on steroid taper 60 mg to reduce by 10 mg every 10 days. She did not receive mesalamine due to financial constraints. The patient is homeless. She was staying with a friend but is unable to do so anymore. She was having 5
bloody bowel movements daily. EMS was called and she was brought to [facility] where we are seeing her now for further recommendations. CTAP with colitis and proctitis. Dr. Kong who did her flexible sigmoidoscopy on 06/27/2024. He states
he was able to advance to 20 cm secondary to angulation and edema. He states there was erythema and serpentine like ulcers. He states there was also cobblestoning. This appeared Crohn's like in appearance.
Impression
- Indeterminant IBD suspect crohn's diagnosed 2003
- Anemia
- Homelessness
Recommendations
still with abdominal pain 8 1/2 out of 10
s/p CT completed await results
variable stools last formed but may have loose stool today with recent contrast
cont NPO as still increased pain
pain control per hospitalist
remain on Prednisone 60mg daily since 08/25
cont PPI use with prednisone use
Pt working with case management for SNF placement
cont to trend hbg 8.9--7.8--8.8
- She will FU with her GI Dr Juan Roche outpatient.
cont Lovenox as increased DVT risk with active IBD
Will follow with you
Subjective
Subjective
Date of Service: July 31, 2024
07/30 brown formed stool but states variable stools, currently NPO as still rates pain as 8 1/2 out out 10 but asking for broth
Objective
Data Reviewed
Laboratory Data:
Laboratory Results
07/30/24 06:14
07/31/24 07:54
Laboratory Results
Magnesium 2.1 mg/dl (1.6-2.3) 07/28/24 06:36
Total Bilirubin 0.1 mg/dl (0.2-1.3) L 07/31/24 07:54
AST 22 U/L (14-36) 07/31/24 07:54
ALT 30 U/L (0-35) 07/31/24 07:54
Alkaline Phosphatase 528 U/L (38-126) H 07/31/24 07:54
Lipase 33 U/L (23-300) 07/25/24 20:26
Vital Signs and I&O:
Vital Signs
Temp Pulse Resp BP Pulse Ox
98.5 F 80 16 109/72 95
07/30/24 23:03 07/30/24 23:03 07/30/24 23:03 07/30/24 23:03 07/30/24 23:03
I&O
07/30/24 07/31/24 08/01/24
06:59 06:59 06:59
Intake Total 2269 780 /
Balance 2269
Physical Exam
Physical Exam
HEENT: Anicteric and Moist mucous membranes
Cardiology: Normal Sinus Rhythm
Pulmonary: Clear
GI: Soft, Distended (mild) and Tender (diffuse worse LLQ)
Extremities: No Edema
Neuro: Non Focal
[2024-07-31] MEDS: ULTRAM 50 MG PO ×2 (10:15→20:53)
[2024-07-31] MEDS: ZOFRAN 4 MG IV (10:16)
--- NOTE | 2024-07-31 10:52 | W.PN.HOSP.TC ---
Today's Communication/Plan
-
follow labs. Await decision regarding next step
Assessment / Plan
Assessment / Plan
Assessment/Plan
Patient with history of inflammatory bowel disease (Crohn's and ulcerative colitis), psoriasis who presented to the emergency department with persistent abdominal pain diarrhea and nausea status post admission for exacerbation in June 2024 at
[facility]. She was discharged on a prednisone taper, mesalamine and given a dose of Remicade prior to discharge. Patient was unable to fill the mesalamine but has continued on the prednisone taper pending follow-up with
trimmer sorter. She is however having persistent to worsening symptoms and unable to wait for the appointment with trimmer sorter. Labs remarkable for anemia with hemoglobin of 8.1 (on admission)-->8.7-->8.9-->7.8-->8.8
(Hgb of 7.8, probable lab error/variance)
#Presentation with progressive lower abdominal pain and worsening bloody diarrhea for the past few weeks [employer]
#GI -abdominal pain, frequent bloody and loose stools, tenderness, consistent with active inflammatory bowel disease.
CT scan showed colitis 07/26: Diffuse colonic and rectal wall thickening with some stranding in the adjacent fat consistent with diffuse colitis and likely secondary to known ulcerative colitis.
10.8 x 8.4 cm peripherally calcified lesion within the uterus, likely large, partially calcified fibroid.
Atrophic right kidney.
Multilevel degenerative changes of the thoracolumbar spine with grade 1 anterolisthesis of L5 on S1 and bilateral pars defects.
It appears that she was started on induction therapy to achieve remission but patient is not quite responding to the steroids, immunomodulators. Based on the treatment approach suggestion that she has more of an ulcerative colitis picture
'patient has also been diagnosed with Crohn's and has psoriasis
Still with abd pain, will stop Dilaudid and order prn oxy and Tramadol instead
CT scan 07/31: Lack of oral contrast opacification of large bowel with markedly distended large bowel through to the proximal sigmoid colon with air and fluid, smooth elongated tapering to normal caliber mid to distal sigmoid with sigmoid and rectal
liquid stool, findings possibly representing ileus associated with patient's known IBD. No free air.
New tiny left pleural effusion and accompanying bilateral lower lobe subsegmental atelectasis.
Atrophic right kidney again noted.
Large uterine lesion again seen likely representing degenerated leiomyoma.
Mildly distended gallbladder again suspected. No findings to suggest biliary tract dilatation.
Hyponatremia Na 134 most likely associated with diarrhea
Acute blood loss anemia with baseline chronic iron deficiency anemia
- Clear Liquids Diet advanced to Full Liquids diet 07/27, advanced to Low residue 07/28 which she is tolerating
stopped IVF
- IV steroids changed to Prednisone 60 mg daily. Will defer to GI whether should be changed back to IV
- Appreciate GI evaluation and recommendations, will need outpt follow up with her GI doctor
Today (07/31) pt is very symptomatic.
Also discussed with CM placement issues. Pt was to see her outpt GI doctor, but with acute process, can not send her out and need for CM to arrange dispo
With resume Dilaudid if pain not controlled with oral analgesics
- Follow stool studies microbiology results
- Continue daily PPI
- Per report, patient is homeless (states she is between homes, details unclear)
#Anemia - ACD vs Iron def Anemia given intermittently bloody stools for weeks
received 1 unit PRBC on 07/26
- Iron studies: Ferritin 239, Fe sat unmeasurable
IV Fe started
- LDH normal. folate is normal. vitamin b12 is high.
- Transfuse if hgb < 7
- Dr. Shyla Doss Texted on-call game trapper Dr. Bray on July 26, 2024 morning, to confirm whether someone with inflammatory bowel disease on immunosuppressive medications needs CMV negative, and irradiated blood (in addition to
leukoreduced), but she mentioned that there is no need for CMV negative and irradiated blood but rather in this case can give regular leukoreduced PRBCs. I appreciate Dr. Bray's assistance.
- 1 unit of PRBC transfused on 07/26/24
Pt concerned about weakness and believes she should go to a rehab facility prior to going home
await CM and insurance prior auth. PT/OT input recommending SNF appreciated
DVT Prophylaxis - Lovenox subq
Code Status - Full Code
multiple issues, complex visit Reviewed with CM
Anticipated Discharge: > 48 hours
Subjective/Interval History
-
Date of Service: July 31, 2024
Pain can become severe at times
Objective Data
-
Labs:
Laboratory Results
07/31/24
07:54
Sodium 136
Potassium 4.2
Chloride 100
Carbon Dioxide 26
BUN 16
Creatinine 0.6
Glucose 77
Calcium 8.5
Total Bilirubin 0.1 L
AST 22
ALT 30
Alkaline Phosphatase 528 H
Vital Signs:
Vital Signs
Temp Pulse Resp BP Pulse Ox
98.4 F 83 16 125/75 98
07/31/24 07:25 07/31/24 07:25 07/31/24 07:25 07/31/24 07:25 07/31/24 07:25
I&O
07/30/24 07/31/24 08/01/24
06:59 06:59 06:59
Intake Total 2270 / 2270 780 / 780
Balance 2270 / 2270 780 / 780
Review of Systems
-
History Source: Patient and Coordinated Provider
Constitutional: Reports Weakness; Denies Fever (afebrile)
EENT: Reports No Symptoms Reported
Respiratory: Reports No Symptoms
Cardiac: Reports No Symptoms; Denies Chest Pain
Abdomen/GI: Reports Abdominal Pain (still with pain) and Diarrhea (Pt states unchanged)
Genitourinary: Denies No Symptoms
Physical Exam
-
General: Well Developed, Well Nourished and No Apparent Distress
HEENT: Normocephalic, Atraumatic, Moist Mucous Membranes and Thrush (moderate, on Nystatin)
Respiratory: Clear to Auscultation; Negative Wheezes, Rales or Rhonchi
Cardiac: Regular Rhythm and S1/S2
GI: Soft, Tender (diffusely tender) and Distended; Negative Normal Bowel Sounds (hyperactive BS)
Musculoskeletal: No Clubbing and No Cyanosis
Neuro: Awake, Alert and Oriented
--- NOTE | 2024-07-31 11:25 | CM ---
Reviewed the chart notes and spoke with the patient at the bedside. Unfortunately [facility] is not in network with the patient's insurance. Looking to see if [facility] is able to accept the patient when ready for discharge.
Patient's abdominal pain continues and GI following. CM continues to be available to patient/family and is monitoring medical plan for needs at discharge.
Plan: Discharge to SNF/rehab once medically stable and bed found. Precert will be required.
[2024-07-31] MEDS: DILAUDID 0.5 MG IV (12:13)
[2024-07-31] MEDS: FERRLECIT 110 MG IV (14:43)
[2024-07-31] MEDS: MYLICON 80 MG PO ×2 (14:57→18:16)
[2024-07-31] MEDS: TYLENOL 650 MG PO ×2 (14:57→23:28)
[2024-07-31 15:25] VITALS: BP 109/63
--- NOTE | 2024-07-31 15:32 | W.PN.UPDATE ---
Update Note
Progress Note Update
reassess pt still with increased pain similar to exam this am without vomiting and CT as noted + diarrhea likely passage of contrast taken this am. Continue to monitor. Pt request ensure apple added to clear diet, taking small sips. Encouraged
ambulation, OOB limit narcotics.
[2024-07-31] MEDS: D5/0.45%NSS with KCL 10 MEQ 1000 IV (16:06)
[2024-07-31] MEDS: MYCOSTATIN ORAL SUSPENSION PO (18:10)
[2024-07-31] MEDS: LOVENOX 40 MG SC (18:10)
[2024-07-31 23:18] VITALS: BP 96/63
[2024-08-01] VITALS (10 sets, daily range): BP systolic 87–95; BP diastolic 57–69; BMI 23.9
[2024-08-01] MEDS: ULTRAM 50 MG PO ×2 (03:13→16:14)
[2024-08-01] MEDS: PERCOCET 5/325 1 TABLET PO (05:36)
[2024-08-01] MEDS: D5/0.45%NSS with KCL 10 MEQ 1000 IV ×2 (07:21→21:55)
[2024-08-01 08:15] LABS: ALT (SGPT) 27 U/L (0-35); AST (SGOT) 16 U/L (14-36); Albumin 2.1 g/dl (3.5-5.0); Alkaline Phosphatase 458 U/L (38-126); Blood Urea Nitrogen 18 mg/dl (7-17); Calcium 7.9 mg/dl (8.4-10.2); Carbon Dioxide 25 mmol/L (22-30); Chloride 99 mmol/L (98-107); Estimated Creatinine Clearance 89 ml/min; Glucose 77 mg/dl (70-99); Potassium 4.4 mmol/L (3.5-5.1); Sodium 133 mmol/L (135-145); Total Bilirubin 0.3 mg/dl (0.2-1.3); Total Protein 4.4 g/dl (6.3-8.2); eGFR > 60.00
[2024-08-01 08:33] LABS: C-Reactive Protein > 270.00 mg/L (0.0-10.00)
--- NOTE | 2024-08-01 08:33 | W.PN.GI.CBS2 ---
Addendum entered and electronically signed by Tiffanie Lino MD 08/01/24 15:24:
I saw and examined the patient.
The [employer] or PA's note was reviewed and I agree with the note.
Comment:
This patient is complex who has a history of indeterminate colitis and has been seen at multiple hospitals. Over the last night she has become more distended with lowering blood pressure and tachycardia. CAT scan done does show dilation of the
transverse colon and questionable narrowing in the descending colon. I did see her midday and she had been slowly improving. She states that she felt relief from urination and believes she had bladder retention. She has not had diarrhea and no
nausea and vomiting.
abd: distended, tender, bs+
impression:
indeterminant colitis
abdominal pain
abnormal CT scan
Plan:
Pt appears to have worsened overnight but did improve slightly after IV steroids given (had been on oral steroids)
D/w dr. Harding at length who also been consulted on the patient
for now:
1. continue IV steroids
2. hep B and quantiferron Neg and received 1 dose of infliximab at outside hospital
3 reviewing chart from OSH. what is known for now that there is a question of stricture or active disease in left colon
4. follow crp, hgb
5. if worsens then will need urgent surgical intervention, if not will determine next medical steps.
Addendum entered and electronically signed by KRYSTAL Cleveland 08/01/24 11:43:
I reviewed some not all records from [facility] still transmitting 100+ pages from [facility] since 8 AM today--Pt with hx prior ulcerative colitis and uterine fibroids presented in June to [facility] with diarrhea and bleeding.
flex sig-- scope advanced to sigmoid colon at which point was angulated and pt was uncomfortable with scope withdrawal moderate serpigninous ulcers with cobblestoning present path sigmoid minimal active colitis with few neutrophils and fibrinous
debris, melanosis coli, absence of granumata, and crypt distortion, rectal rare neutrophil with increased chronic inflammation and crypt distortion, melanosis coli, absence of granuloma or crypt abscess
06/27- CT large bowel moderate wall thickening, mucosal enhancement and engorgement of vasa recta suggest colitis, suspect UC flare. calcified uterine fibroid, stable multiple calcified granuloma in spleen, suggest prior granuloma infection,
anterolithiesis L5-S1
CT A/P with IV contrast- segmental narrowing of mid descending colon with fluid distention of ascending colon and gaseous distention of transverse and proximal descending colon worrisome for possible constricting lesion in mid descending colon,
large pelvic mass with peripheral rim calcification uterine vs adnexal origin, atrophic right kidney
stool pathogen panel 06/27 negative
fecal ej 06/30-2310
sed rate 07/02 89
CRP 07/02- 86.8
06/30 hep C non reactive
hep B surface ag non reactive
hep A ab total non reactive
07/03 hemant TB plus neg
-SEE SUPERVISOR Dr. Esparza consult
- s/p colorectal surgical consult
Addendum entered and electronically signed by KRYSTAL Cleveland 08/01/24 10:12:
pt wit tachycardia and hypotension this am will decreased to NPO. will review with Dr Lino for remicade, Add hepatitis and TB testing though may have been completed at [facility]. appreciate CR surgery input
Original Note:
Today's Communication / Plan
-
CT as noted
continued increased pain today
will change steroid back to IV solumedrol 20mg q [address] Augustin for colorectal consultation as continued abdominal pain
stool studies neg
clear diet with supplement with increase to BID
cont PPI use with steroid use and add calcium and vitamin D
await formal records from [facility] staff called again -- would want to review path from recent flex
Pt working with case management for SNF placement
cont to trend hbg 8.9--7.8--8.8 --repeat pending
trend CRP remain >270
She will FU with her GI Dr Juan Roche outpatient after discharge was due yesterday and will need to reschedule
cont Lovenox as increased DVT risk with active IBD
Will follow with you
Assessment / Plan
-
54-year-old female with past medical history of GERD, degenerative disc disease with back injury of L4-L5, psoriasis 'Crohn's and colitis'. Initially diagnosed in [address] Marcos Brower and then followed by Dr. Christian Brandon with her first
colonoscopy at that time. The patient states that she was initially started on steroids and is to call followed by a single dose of Remicade in 2003. With second attack in 2010 treated with steroids and Asacol 2010 per patient. With follow-up in
[address] Roche with colonoscopy and states she was in 'remission' with no need for medication since that time until this June when she required hospitalization at [facility] with treatment with steroids
mesalamine and Remicade initiation on 07/04/2024.
She was discharged on steroid taper 60 mg to reduce by 10 mg every 10 days. She did not receive mesalamine due to financial constraints. The patient is homeless. She was staying with a friend but is unable to do so anymore. She was having 5
bloody bowel movements daily. EMS was called and she was brought to [facility] where we are seeing her now for further recommendations. CTAP with colitis and proctitis. Dr. Kong who did her flexible sigmoidoscopy on 06/27/2024. He states
he was able to advance to 20 cm secondary to angulation and edema. He states there was erythema and serpentine like ulcers. He states there was also cobblestoning. This appeared Crohn's like in appearance.
07/31/24 CT with IV and oral
Lack of oral contrast opacification of large bowel with markedly distended large bowel through to the proximal sigmoid colon with air and fluid, smooth elongated tapering to normal caliber mid to distal sigmoid with sigmoid and rectal liquid stool,
findings possibly representing ileus associated with patient's known IBD. No free air.
New tiny left pleural effusion and accompanying bilateral lower lobe subsegmental atelectasis.
Atrophic right kidney again noted.
Large uterine lesion again seen likely representing degenerated leiomyoma.
Mildly distended gallbladder again suspected. No findings to suggest biliary tract dilatation.
Impression
- Indeterminant IBD suspect crohn's diagnosed 2003
-cont abdominal pain worse LLQ
-low grade fever
-elevated CRP
- Anemia
-thromobocytosis
- Homelessness
-hypoalbuminemia
-increased alk phos
Recommendations
CT as noted
continued increased pain today
will change steroid back to IV solumedrol 20mg q [address] Augustin for colorectal consultation as continued abdominal pain
stool studies neg
clear diet with supplement with increase to BID
cont PPI use with steroid use and add calcium and vitamin D
await formal records from [facility] staff called again -- would want to review path from recent flex
Pt working with case management for SNF placement
cont to trend hbg 8.9--7.8--8.8 --repeat pending
trend CRP remain >270
She will FU with her GI Dr Juan Roche outpatient after discharge was due yesterday and will need to reschedule
cont Lovenox as increased DVT risk with active IBD
Will follow with you
Subjective
Subjective
Date of Service: August 01, 2024
07/31 with 2 loose stool overnight on clear diet with supplement , low grade fever 100.5 still with increased
Objective
Data Reviewed
Laboratory Data:
Laboratory Results
08/01/24 06:22
Laboratory Results
Magnesium 2.1 mg/dl (1.6-2.3) 07/28/24 06:36
Total Bilirubin 0.3 mg/dl (0.2-1.3) 08/01/24 06:22
AST 16 U/L (14-36) 08/01/24 06:22
ALT 27 U/L (0-35) 08/01/24 06:22
Alkaline Phosphatase 458 U/L (38-126) H 08/01/24 06:22
Lipase 33 U/L (23-300) 07/25/24 20:26
Vital Signs and I&O:
Vital Signs
Temp Pulse Resp BP Pulse Ox
100.5 F H 113 16 96/63 94
07/31/24 23:18 07/31/24 23:18 07/31/24 23:18 07/31/24 23:18 07/31/24 23:18
I&O
07/31/24 08/01/24 08/02/24
06:59 06:59 06:59
Intake Total 780 / 780 1200 / 1200
Balance 780 / 780 1200 / 1200
Physical Exam
Physical Exam
HEENT: Anicteric and Moist mucous membranes
Cardiology: Normal Sinus Rhythm
Pulmonary: Clear
GI: Soft, Distended and Tender (diffuse with increased pain and guarding LLQ)
Extremities: No Edema
Neuro: Non Focal
[2024-08-01] MEDS: DELTASONE PO (08:59)
[2024-08-01 09:01] LABS: Hematocrit 26.6 % (37.0-47.0); Hemoglobin 8.6 g/dL (12.0-16.0); Mean Corp Hgb Conc. 32.3 g/dL (33.0-37.0); Mean Corpuscular Hgb 29.7 pg (27.0-31.0); Mean Corpuscular Volume 91.7 fL (81.0-99.0); Mean Platelet Volume 8.9 fL (7.4-10.4); Platelet Count 422 10^3/uL (130-400); Red Cell Dist. Width 17.6 % (11.5-14.5); White Blood Cell Count 9.9 10^3/uL (4.8-10.8)
--- NOTE | 2024-08-01 09:13 | W.PN.HOSP.TC ---
Addendum entered and electronically signed by Fausto Augustin MD 08/01/24 11:58:
Call from [facility], requests pt transfer to [facility]
Will place order
Original Note:
Today's Communication/Plan
-
CRS consulted
steroids changed back to IV
To consider Remicade
Assessment / Plan
Assessment / Plan
Assessment/Plan
Patient with history of inflammatory bowel disease (Crohn's and ulcerative colitis), psoriasis who presented to the emergency department with persistent abdominal pain diarrhea and nausea status post admission for exacerbation in June 2024 at
[facility]. She was discharged on a prednisone taper, mesalamine and given a dose of Remicade prior to discharge. Patient was unable to fill the mesalamine but has continued on the prednisone taper pending follow-up with
surveillance inspector. She is however having persistent to worsening symptoms and unable to wait for the appointment with surveillance inspector. Labs remarkable for anemia with hemoglobin of 8.1 (on admission)-->8.7-->8.9-->7.8-->8.8-->8.6
(Hgb of 7.8, probable lab error/variance)
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
#GI -abdominal pain, frequent bloody and loose stools, tenderness, consistent with active inflammatory bowel disease.
CT scan showed colitis 07/26: Diffuse colonic and rectal wall thickening with some stranding in the adjacent fat consistent with diffuse colitis and likely secondary to known ulcerative colitis.
10.8 x 8.4 cm peripherally calcified lesion within the uterus, likely large, partially calcified fibroid.
Atrophic right kidney.
Multilevel degenerative changes of the thoracolumbar spine with grade 1 anterolisthesis of L5 on S1 and bilateral pars defects.
It appears that she was started on induction therapy to achieve remission but patient is not quite responding to the steroids, immunomodulators. Based on the treatment approach suggestion that she has more of an ulcerative colitis picture
'patient has also been diagnosed with Crohn's and has psoriasis
Still with abd pain, will stop Dilaudid and order prn oxy and Tramadol instead
CT scan 07/31: Lack of oral contrast opacification of large bowel with markedly distended large bowel through to the proximal sigmoid colon with air and fluid, smooth elongated tapering to normal caliber mid to distal sigmoid with sigmoid and rectal
liquid stool, findings possibly representing ileus associated with patient's known IBD. No free air.
New tiny left pleural effusion and accompanying bilateral lower lobe subsegmental atelectasis.
Atrophic right kidney again noted.
Large uterine lesion again seen likely representing degenerated leiomyoma.
Mildly distended gallbladder again suspected. No findings to suggest biliary tract dilatation.
Hyponatremia Na 134 most likely associated with diarrhea
Acute blood loss anemia with baseline chronic iron deficiency anemia
- Clear Liquids Diet advanced to Full Liquids diet 07/27, advanced to Low residue 07/28, but with abdominal pain intensity, pt diet changed back to clear liquids
stopped IVF
- IV steroids changed to Prednisone 60 mg daily. As per GI will be changed back to IV, await decision on Remicade
- Appreciate GI evaluation and recommendations, will need outpt follow up with her GI doctor
Pt remains very symptomatic, discussed with Mukund Harding (CRS), will consult for their input
- Follow stool studies microbiology results
- Continue daily PPI
- Per report, patient is homeless (states she is between homes, details unclear)
#Anemia - ACD vs Iron def Anemia given intermittently bloody stools for weeks
received 1 unit PRBC on 07/26, 08/01 Hgb 8.6
- Iron studies: Ferritin 239, Fe sat unmeasurable
IV Fe started
- LDH normal. folate is normal. vitamin b12 is high.
- Transfuse if hgb < 7
- Dr. Shyla Doss Texted on-call air and water tester Dr. Bray on July 26, 2024 morning, to confirm whether someone with inflammatory bowel disease on immunosuppressive medications needs CMV negative, and irradiated blood (in addition to
leukoreduced), but she mentioned that there is no need for CMV negative and irradiated blood but rather in this case can give regular leukoreduced PRBCs. I appreciate Dr. Bray's assistance.
- 1 unit of PRBC transfused on 07/26/24
Once acute GI issues have settled, Pt concerned about weakness and believes she should go to a rehab facility prior to going home
await CM and insurance prior auth. PT/OT input recommending SNF appreciated
DVT Prophylaxis - Lovenox subq
Code Status - Full Code
multiple issues, complex visit Reviewed with CM, CRS, GI
Anticipated Discharge: > 48 hours
Subjective/Interval History
-
Date of Service: August 01, 2024
Still with a lot of pain
Objective Data
-
Labs:
Laboratory Results
08/01/24
06:22
WBC 9.9
Hgb 8.6 L
Hct 26.6 L
Plt Count 422 H D
Sodium 133 L
Potassium 4.4
Chloride 99
Carbon Dioxide 25
BUN 18 H
Creatinine 0.7
Glucose 77
Calcium 7.9 L
Total Bilirubin 0.3
AST 16
ALT 27
Alkaline Phosphatase 458 H
Vital Signs:
Vital Signs
Temp Pulse Resp BP Pulse Ox
100.0 F 114 14 90/58 94
08/01/24 07:25 08/01/24 07:25 08/01/24 07:25 08/01/24 07:25 08/01/24 07:25
I&O
07/31/24 08/01/24 08/02/24
06:59 06:59 06:59
Intake Total 780 / 780 1200 / 1200
Balance 780 / 780 1200 / 1200
Review of Systems
-
History Source: Patient and Coordinated Provider
Constitutional: Reports Weakness; Denies Fever (afebrile)
EENT: Reports No Symptoms Reported
Respiratory: Reports No Symptoms
Cardiac: Reports No Symptoms; Denies Chest Pain
Abdomen/GI: Reports Abdominal Pain (still with pain) and Diarrhea (Pt states unchanged)
Genitourinary: Denies No Symptoms
Physical Exam
-
General: Well Developed, Well Nourished and No Apparent Distress
HEENT: Normocephalic, Atraumatic, Moist Mucous Membranes and Thrush (moderate, on Nystatin)
Respiratory: Clear to Auscultation; Negative Wheezes, Rales or Rhonchi
Cardiac: Regular Rhythm and S1/S2
GI: Soft, Tender (diffusely tender) and Distended; Negative Normal Bowel Sounds (hyperactive BS)
Musculoskeletal: No Clubbing and No Cyanosis
Neuro: Awake, Alert and Oriented
[2024-08-01] MEDS: DILAUDID 0.5 MG IV ×2 (09:20→20:34)
[2024-08-01] MEDS: SOLU-MEDROL PF 20 MG IV ×2 (09:21→18:40)
[2024-08-01] MEDS: LIDOCAINE 4% PATCH TOPICAL (09:29)
[2024-08-01] MEDS: PROTONIX 40 MG PO (09:43)
[2024-08-01] MEDS: MYCOSTATIN ORAL SUSPENSION 5 ML PO ×3 (09:43→21:58)
[2024-08-01] MEDS: ZOLOFT 50 MG PO (09:43)
--- NOTE | 2024-08-01 10:13 | CON.CRS ---
Consultation
-
Date/Time Consultation Requested: 08/01/2024, 08:45
Date/Time Consultation Performed: 08/01/2024, 09:00
Requesting Provider: Fausto Augustin MD
Performing Provider: Cj Harding MD
Reason for Consultation: crohns disease
Medical History
-
Chief Complaint: abdominal pain
History of Present Illness:
54-year-old female, with a significant past medical history of inflammatory bowel disease since 2003, presents to [facility] on 07/26/2024 complaining of abdominal pain. The patient states that she has been diagnosed with Crohn's disease
since 2003 and has had flares throughout the years. She had a flare in 2009 and 2010 and 2011 most recently about a month ago where she was hospitalized at [facility]. In the past she had 1 dose of Remicade which helped with her flare. She was
on Asacol for a year and then she stopped. She has been in the hospital for these flares and has been on multiple rounds of IV steroids. At 1 point she was on Pentasa. Most recently she was at [facility] followed by [facility] on July 04
where she was given Remicade and underwent a flexible sigmoidoscopy. Per the patient, it showed Crohn's disease or ulcerative colitis and it was not conclusive. Per GI, the scope was able to be advanced to 20 cm secondary to angulation and edema.
There is erythema and serpentine like ulcers and cobblestoning. Her last full colonoscopy was in 2018 by which showed that she was in remission. Records are not available.
The patient states that she has been in a flare since May 2024. It has been worse over the past 4 days and she describes the pain as a 9 out of 10. She has some gas but is very little. She is having bowel movements 4-10 times a day since
May and has had blood in her stool. She said more recently the blood is gone from bright red to dark. She is not sure the last time she bled but she believes it could have been a few days ago. She states her last bowel movement was last night
and she has had 2 in the past 24 hours. She has mucus around the stools. She denies nausea or vomiting but feels like her stomach is 'seasick'. She states eating makes her pain worse and she feels bloated and distended.
She has had a history of a fibroid surgery in the past but otherwise has had no other abdominal surgery. She denies a family history of inflammatory bowel disease and a family history of colon or rectal cancer.
A CT of the abdomen and pelvis was performed yesterday with IV contrast given she was not able to tolerate oral. This showed distended large bowel through to the proximal sigmoid colon with air and fluid, smooth elongated tapering to normal caliber
mid to distal sigmoid with sigmoid and rectal stool, findings possibly representing ileus associated patient's known IBD. No free air. She has not undergone a colonoscopy during this admission. She initially was started on steroids and was down
to a prednisone taper which was started on 1016. She is back to IV methylprednisone that was started this morning. The patient states that her pain has increased since overnight and she had a fever overnight. She is currently hypotensive with
blood pressure of 90/58. She has been tachycardic since yesterday afternoon. Given these findings and lack of improvement, we have been consulted for further surgical opinion.
Past Medical History
Past Medical History: Other (Crohn's disease, psoriasis, degenerative disc disease)
Past Surgical History: Other (Fibroid surgery, breast augmentation)
Social History
Tobacco: Non-Smoker
Alcohol: Former (Daily drinker until May 2024)
Personal: Single
Living: Homeless
Family History
Family History: Reviewed & Not Pertinent
Allergies / Home Medications
Allergy/AdvReac Type Severity Reaction Status Date / Time
No Known Allergies Allergy Unverified 07/25/24 20:12
�Medication �Instructions �Recorded �Confirmed �Type
acetaminophen 325 mg tablet 650 mg PO Q6HPRN PRN mild pain 07/26/24 07/26/24 History
(Tylenol)
melatonin 5 mg tablet 5 mg PO HSPRN PRN sleep 07/26/24 07/26/24 History
nystatin 100,000 unit/mL oral 5 ml PO QID 07/26/24 07/26/24 History
suspension
pantoprazole 40 mg tablet,delayed 40 mg PO BID 07/26/24 07/26/24 History
release (Protonix)
prednisone 10 mg tablets in a dose 10 mg PO DIRECTED 07/26/24 07/26/24 History
pack
sertraline 50 mg tablet 50 mg PO DAILY 07/26/24 07/26/24 History
triamcinolone acetonide 0.05 % 1 applic topical DAILY b/l legs 07/26/24 07/26/24 History
topical ointment
Review of Systems
-
History Source: Patient
Abdomen/GI: Abdominal Pain, Nausea, Diarrhea and Bloody Stools
A 10 point review of systems was completed, and was negative except as per HPI.
Physical Exam
Vital Signs
Temp 100.0 F 08/01/24 07:25
Pulse 114 08/01/24 07:25
Resp Rate 14 08/01/24 07:25
Blood pressure 90/58 08/01/24 07:25
SaO2 94 08/01/24 07:25
Body Mass Index (BMI) 22.2
Lab Results / Allergies
08/01/24 06:22
08/01/24 06:22
WBC 9.9 10^3/uL (4.8-10.8) 08/01/24 06:22
Hgb 8.6 g/dL (12.0-16.0) L 08/01/24 06:22
Hct 26.6 % (37.0-47.0) L 08/01/24 06:22
Plt Count 422 10^3/uL (130-400) H D 08/01/24 06:22
Abs Immat Gran (auto) 0.0 10^3/uL (0-0.05) 07/28/24 06:36
Neutrophils % 82.7 % (42.2-75.2) H 07/28/24 06:36
Allergy/AdvReac Type Severity Reaction Status Date / Time
No Known Allergies Allergy Unverified 07/25/24 20:12
Physical Exam
General: Well Developed and Pain
GI: Tender (Very tender throughout all 4 quadrants most prominently in the left lower quadrant) and Distended (Mild to moderate)
Skin: Warm and Dry
Neuro: Awake and AO x 3
Data Reviewed
-
CT Scan: Image Personally Visualized and interpreted, Report Reviewed by me and Discussed with Patient
Labs: Labs Reviewed by me, Discussed with Physician and Discussed with Patient
Old Records: Requested
Assessment / Plan
-
Assessment: 54-year-old female with a known history of Crohn's versus ulcerative colitis presents with worsening abdominal pain over the past 4 days, currently on IV steroids, tender on exam with tachycardia, fever, and hypotension, and distention
of large bowel through the the proximal sigmoid colon with air and fluid and possible ileus
Plan:
-Had a long discussion with the patient regarding her situation. Her exam is quite worrisome given with her current vital signs and CT scan. The patient is adamant she does not want surgery. We offered her surgery later today and she would like
to exhaust all medical treatment before surgery. Discussion was had between Dr. Harding and Dr. Lino. Will try to start Remicade today for salvage therapy. We will keep a close eye on the patient's vital signs and exam throughout the day, she has
been tentatively added to the OR schedule for an exploratory laparotomy with possible stoma. The patient is aware that waiting on surgery may cause a perforation but she is willing to take this risk.
-Transfer to IMU for closer exam and vital sign monitoring.
- N.p.o. with IV fluids
-She has been added to the OR schedule for later in the afternoon should she need surgery
-Will attempt to start Remicade today per GI
-Wound RN consult for stoma marking, patient is aware
-Preop laboratory work ordered
-IV antibiotics ordered for on-call to the OR. She does not need this should she not require surgery.
-Will closely follow throughout the day
--- NOTE | 2024-08-01 10:50 | CM ---
Reviewed the chart notes and spoke with the patient at the bedside. Patient was seen by colorectal surgeon and will be transferred to IMU. Patient continues with abdominal pain and per notes may require surgery. CM continues to be available to
patient/family and is monitoring medical plan for needs at discharge.
Plan: Discharge plan remains to SNF/rehab once medically stable. Precert will be required.
--- NOTE | 2024-08-01 11:00 | WOUNDNOTE ---
[facility] RN NOTE: Patient visited for bilateral stoma marking. Patient reported tender abdomen and was not able to change position. Patients abdomen also distended. Patient made aware that do to these factors, pouching issues may occur. Patient also made
aware that surgeon will make final determination of stoma placement. Will continue to follow up with patient if stoma is placed. JOSEFINA Wright given updated.
[2024-08-01 11:04] LABS: INR 1.55; PT 18.4 Sec (11.4-14.6)
[2024-08-01 11:05] LABS: APTT 47.3 Sec (23.4-35.0)
--- NOTE | 2024-08-01 12:03 | PTCARENOTE ---
BP 88/62, MAP 71. Dr. Augustin aware. Report given to Alla in IMU.
[2024-08-01] MEDS: NSS 1000 IV (13:20)
--- NOTE | 2024-08-01 13:58 | PTCARENOTE ---
Received patient from [address] [place] [id number]. Patient AAOx3. Patient not very happy. Patient says that she is not having surgery. IV bolus infusing as ordered. Patient pain is tolerable at the moment. K-pad on abdomen for comfort. SR/ST on monitor. HR 97,BP
93/59, 94% RA, 12. Will continue to monitor.
[2024-08-01] MEDS: MYCOSTATIN ORAL SUSPENSION PO (14:24)
[2024-08-01] MEDS: FERRLECIT 110 MG IV (15:34)
--- NOTE | 2024-08-01 17:27 | W.PN.UPDATE ---
Update Note
Progress Note Update
I reviewed the chart and checked on the patient once more. She had a liquid BM and passed some flatus. She had no further fevers throughout the day, Tmax 100.0. Heart rate improved after bolus of fluid and increase in IVF rate. Her systolic BP is
borderline, but MAPs have been greater than 65. On exam, she has diffuse mild to moderate abdominal tenderness that has improved since this morning, mild abdominal distention, also slightly improved, no rebound or guarding. I again reiterated that
the safest thing at this point would likely be total abdominal colectomy with end colostomy. However, within the last 8 hours, she has shown clinical stability, if not some improvement, with the transition to IV steroids and aggressive IV
resuscitation. She again reiterated that she would like to avoid any surgery if possible. I reiterated the risks with nonoperative measures, including, but not limited to, risk of clinical deterioration and abdominal sepsis. Additionally, she
would eventually need to be transitioned to oral steroids for discharge. If she fails the transition to PO once again, I would strongly recommend surgery. She understood and would like to continue with nonoperative measures.
� She recently received oral tramadol which led to nausea and epigastric discomfort; recommend strict n.p.o., no p.o. meds, okay to suck on ice chips for comfort
�Continue IV pain control as needed
� Continue IV Solu-Medrol; appreciate GI for salvage therapy with biologic
--- NOTE | 2024-08-01 18:00 | PTCARENOTE ---
Patient NPO except for ice chips as per surgery.
[2024-08-01] MEDS: LOVENOX 40 MG SC (18:39)
[2024-08-01 20:34] LABS: Hepatitis B Surface Antigen Negative (Negative)
[2024-08-01 20:53] LABS: Hepatitis B Core Ab, Total Negative (Negative); Hepatitis B Surface Antibody Negative; Hepatitis C Antibody Negative (Negative)
[2024-08-02] VITALS (16 sets, daily range): BP systolic 85–114; BP diastolic 60–88
[2024-08-02] MEDS: SOLU-MEDROL PF 20 MG IV ×3 (02:02→19:22)
[2024-08-02] MEDS: DILAUDID 0.5 MG IV ×6 (03:41→23:31)
[2024-08-02 04:30] LABS: Hematocrit 23.5 % (37.0-47.0); Hemoglobin 7.6 g/dL (12.0-16.0); Mean Corp Hgb Conc. 32.3 g/dL (33.0-37.0); Mean Corpuscular Hgb 29.9 pg (27.0-31.0); Mean Corpuscular Volume 92.5 fL (81.0-99.0); Mean Platelet Volume 8.8 fL (7.4-10.4); Platelet Count 303 10^3/uL (130-400); Red Blood Cell Count 2.54 10^6/uL (4.20-5.40); Red Cell Dist. Width 17.2 % (11.5-14.5); White Blood Cell Count 5.1 10^3/uL (4.8-10.8)
[2024-08-02 04:46] LABS: Blood Urea Nitrogen 12 mg/dl (7-17); Calcium 7.6 mg/dl (8.4-10.2); Carbon Dioxide 27 mmol/L (22-30); Chloride 101 mmol/L (98-107); Estimated Creatinine Clearance 104 ml/min; Glucose 159 mg/dl (70-99); Potassium 4.2 mmol/L (3.5-5.1); Sodium 136 mmol/L (135-145); eGFR > 60.00
[2024-08-02 05:04] LABS: C-Reactive Protein > 270.00 mg/L (0.0-10.00)
[2024-08-02] MEDS: D5/0.45%NSS with KCL 10 MEQ 1000 IV ×2 (06:08→19:25)
--- NOTE | 2024-08-02 06:13 | PTCARENOTE ---
Pt continues with BPs 80s-90s systolic but all MAPs are >65. Heart rate currently 70s. Med x2 this shift for pain with dilaudid. Assessment as charted.
--- NOTE | 2024-08-02 08:03 | W.PN.HOSP.TC ---
Today's Communication/Plan
-
transfuse 1 unit PRBC now
slow IVF
follow BP
Will defer to surgery option of abx (WBC normal and no fever)
With INR 1.55, will give vitamin K x1
Alb 2.1, may need to consider TPN if remains NPO
Assessment / Plan
Assessment / Plan
Assessment/Plan
Patient with history of inflammatory bowel disease (Crohn's and ulcerative colitis), psoriasis who presented to the emergency department with persistent abdominal pain diarrhea and nausea status post admission for exacerbation in June 2024 at
[facility]. She was discharged on a prednisone taper, mesalamine and given a dose of Remicade prior to discharge. Patient was unable to fill the mesalamine but has continued on the prednisone taper pending follow-up with
journeyman pipefitter. She is however having persistent to worsening symptoms and unable to wait for the appointment with journeyman pipefitter. Labs remarkable for anemia with hemoglobin of 8.1 (on admission)-->8.7-->8.9-->7.8-->8.8-->8.6-->7.6
Will order unit of blood
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
#GI -abdominal pain, frequent bloody and loose stools, tenderness, consistent with active inflammatory bowel disease.
CT scan showed colitis 07/26: Diffuse colonic and rectal wall thickening with some stranding in the adjacent fat consistent with diffuse colitis and likely secondary to known ulcerative colitis.
10.8 x 8.4 cm peripherally calcified lesion within the uterus, likely large, partially calcified fibroid.
Atrophic right kidney.
Multilevel degenerative changes of the thoracolumbar spine with grade 1 anterolisthesis of L5 on S1 and bilateral pars defects.
It appears that she was started on induction therapy to achieve remission but patient is not quite responding to the steroids, immunomodulators. Based on the treatment approach suggestion that she has more of an ulcerative colitis picture
'patient has also been diagnosed with Crohn's and has psoriasis
Still with abd pain, input of CRS appreciated, pt moved to IMU 08/01
CT scan 07/31: Lack of oral contrast opacification of large bowel with markedly distended large bowel through to the proximal sigmoid colon with air and fluid, smooth elongated tapering to normal caliber mid to distal sigmoid with sigmoid and rectal
liquid stool, findings possibly representing ileus associated with patient's known IBD. No free air.
New tiny left pleural effusion and accompanying bilateral lower lobe subsegmental atelectasis.
Atrophic right kidney again noted.
Large uterine lesion again seen likely representing degenerated leiomyoma.
Mildly distended gallbladder again suspected. No findings to suggest biliary tract dilatation.
Hyponatremia Na 134 most likely associated with diarrhea
Acute blood loss anemia with baseline chronic iron deficiency anemia
- Clear Liquids Diet advanced to Full Liquids diet 07/27, advanced to Low residue 07/28, but with abdominal pain intensity, pt diet changed back to clear liquids, as per CRS, made NPO 08/01
stopped IVF
- IV steroids changed to Prednisone 60 mg daily. As per GI was changed back to IV steroids, await decision on Remicade
Pt remains very symptomatic, with diarrhea and abdominal pain,discussed with Mukund Harding (CRS), consult placed for their input
She feels strongly that would not want surgical intervention (Colectomy). Reviewed with her this aspect again 08/02
- Continue daily PPI
- Per report, patient is homeless (states she is between homes, details unclear)
Hypotension
BP running in 86/63 level, asymptomatic. Will slow IVF rate slightly, reviewed with JOSEFINA Serrato, potentially transfusion will help, but made need addition of pressors
#Anemia - ACD vs Iron def Anemia given intermittently bloody stools for weeks
received 1 unit PRBC on 07/26,will order unit 08/02
- Iron studies: Ferritin 239, Fe sat unmeasurable
IV Fe started
- LDH normal. folate is normal. vitamin b12 is high.
- Transfuse if hgb < 7
- Dr. Shyla Bessemer Texted on-call log snaker Dr. Bray on July 26, 2024 morning, to confirm whether someone with inflammatory bowel disease on immunosuppressive medications needs CMV negative, and irradiated blood (in addition to
leukoreduced), but she mentioned that there is no need for CMV negative and irradiated blood but rather in this case can give regular leukoreduced PRBCs. I appreciate Dr. Bray's assistance.
- 1 unit of PRBC transfused on 07/26/24
Once acute GI issues have settled, Pt concerned about weakness and believes she should go to a rehab facility prior to going home
await CM and insurance prior auth. PT/OT input recommending SNF appreciated
DVT Prophylaxis - Lovenox subq
Code Status - Full Code
Anticipated Discharge: > 48 hours
Subjective/Interval History
-
Date of Service: August 02, 2024
Awake, alert, states pain has lessened
Objective Data
-
Labs:
Laboratory Results
08/02/24
03:52
WBC 5.1
Hgb 7.6 L
Hct 23.5 L
Plt Count 303 D
Sodium 136
Potassium 4.2
Chloride 101
Carbon Dioxide 27
BUN 12
Creatinine 0.5 L
Glucose 159 H
Calcium 7.6 L
Vital Signs:
Vital Signs
Temp Pulse Resp BP Pulse Ox
98.4 F 69 16 86/63 97
08/02/24 03:42 08/02/24 06:09 08/02/24 06:09 08/02/24 06:09 08/02/24 06:09
I&O
08/01/24 08/02/24 08/03/24
06:59 06:59 06:59
Intake Total 1200 / 1200 1510 / 1510
Balance 1200 / 1200 1510 / 1510
Review of Systems
-
History Source: Patient and Coordinated Provider
Constitutional: Reports Weakness; Denies Fever (afebrile)
EENT: Reports No Symptoms Reported
Respiratory: Reports No Symptoms
Cardiac: Reports No Symptoms; Denies Chest Pain
Abdomen/GI: Reports Abdominal Pain (still with pain, though slightly less) and Diarrhea (Pt states unchanged)
Genitourinary: Denies No Symptoms
Physical Exam
-
General: Well Developed, Well Nourished and No Apparent Distress
HEENT: Normocephalic, Atraumatic, Moist Mucous Membranes and Thrush (moderate, on Nystatin)
Respiratory: Clear to Auscultation; Negative Wheezes, Rales or Rhonchi
Cardiac: Regular Rhythm and S1/S2
GI: Soft, Tender (diffusely tender) and Distended (slightly less distended); Negative Normal Bowel Sounds (hyperactive BS)
Musculoskeletal: No Clubbing and No Cyanosis
Neuro: Awake, Alert and Oriented
[2024-08-02] MEDS: OSCAL 500 + D PO (08:47)
[2024-08-02] MEDS: LIDOCAINE 4% PATCH TOPICAL (09:09)
[2024-08-02] MEDS: MYCOSTATIN ORAL SUSPENSION 5 ML PO ×4 (09:09→22:02)
[2024-08-02] MEDS: PROTONIX IV 40 MG IV (09:09)
--- NOTE | 2024-08-02 10:03 | W.PN.GI.CBS2 ---
Today's Communication / Plan
-
monitor clinically, crp
xray
Assessment / Plan
-
54-year-old female with past medical history of GERD, degenerative disc disease with back injury of L4-L5, psoriasis 'Crohn's and colitis'. Initially diagnosed [place] [address] Marcos Brower and then followed by Dr. Christian Brandon with her first
colonoscopy at that time. The patient states that she was initially started on steroids and is to call followed by a single dose of Remicade in 2003. With second attack in 2010 treated with steroids and Asacol 2010 per patient. With follow-up in
[address] Roche with colonoscopy and states she was in 'remission' with no need for medication since that time until this June when she required hospitalization at [facility] with treatment with steroids
mesalamine and Remicade initiation on 07/04/2024.
She was discharged on steroid taper 60 mg to reduce by 10 mg every 10 days. She did not receive mesalamine due to financial constraints. The patient is homeless. She was staying with a friend but is unable to do so anymore. She was having 5
bloody bowel movements daily. EMS was called and she was brought to [facility] where we are seeing her now for further recommendations. CTAP with colitis and proctitis. Dr. Kong who did her flexible sigmoidoscopy on 06/27/2024. He states
he was able to advance to 20 cm secondary to angulation and edema. He states there was erythema and serpentine like ulcers. He states there was also cobblestoning. This appeared Crohn's like in appearance.
07/31/24 CT with IV and oral
Lack of oral contrast opacification of large bowel with markedly distended large bowel through to the proximal sigmoid colon with air and fluid, smooth elongated tapering to normal caliber mid to distal sigmoid with sigmoid and rectal liquid stool,
findings possibly representing ileus associated with patient's known IBD. No free air.
New tiny left pleural effusion and accompanying bilateral lower lobe subsegmental atelectasis.
Atrophic right kidney again noted.
Large uterine lesion again seen likely representing degenerated leiomyoma.
Mildly distended gallbladder again suspected. No findings to suggest biliary tract dilatation.
Impression
- Indeterminant IBD suspect crohn's diagnosed 2003
-cont abdominal pain worse LLQ
-low grade fever
-elevated CRP
- Anemia
-thromobocytosis
- Homelessness
-hypoalbuminemia
-increased alk phos
Recommendations
continue to monitor clinically and monitor CRP
continue IV steroids
Pt has improved from yesterday
monitor labs
getting transfused 1 unit prbcs
will need careful determination of next steps if she continues to improve over weekend. Severe IBD, may need repeat dose of infliximab but also needs longer term management.
continue NPO
xray later today
Subjective
Subjective
Date of Service: August 02, 2024
Pt feeling better, less abdominal pain, no longer tachycardic
Objective
Data Reviewed
Laboratory Data:
Laboratory Results
08/02/24 03:52
08/02/24 03:52
Laboratory Results
PT 18.4 Sec (11.4-14.6) H 08/01/24 10:44
INR 1.55 08/01/24 10:44
APTT 47.3 Sec (23.4-35.0) H 08/01/24 10:44
Magnesium 2.1 mg/dl (1.6-2.3) 07/28/24 06:36
Total Bilirubin 0.3 mg/dl (0.2-1.3) 08/01/24 06:22
AST 16 U/L (14-36) 08/01/24 06:22
ALT 27 U/L (0-35) 08/01/24 06:22
Alkaline Phosphatase 458 U/L (38-126) H 08/01/24 06:22
Lipase 33 U/L (23-300) 07/25/24 20:26
Vital Signs and I&O:
Vital Signs
Temp Pulse Resp BP Pulse Ox
97.8 F 69 13 88/63 95
08/02/24 07:25 08/02/24 08:00 08/02/24 08:00 08/02/24 08:00 08/02/24 08:00
I&O
08/01/24 08/02/24 08/03/24
06:59 06:59 06:59
Intake Total 1200 / 1200 1510 / 1510
Balance 1200 / 1200 1510 / 1510
Physical Exam
Physical Exam
Cardiology: S1 and S2
GI: Soft and Tender (throughout but improved from yesterday also less distended)
Neuro: Non Focal
--- NOTE | 2024-08-02 13:02 | W.PN.GS2 ---
Addendum entered and electronically signed by Robi Metcalf MD 08/02/24 16:00:
I saw and examined the patient.
The Solar Sales Rep's note was reviewed and I agree with the note.
Comment: Pain improved. Denies n/v. Passing flats and stools. hungry. Plan to cont non-op mgmt per GI recs. Surgery will follow peripherally.
Original Note:
Today's Communication / Plan
-
IBD management
Assessment / Plan
-
54 yo female with h/o IBD, suspected Crohn's presenting with abdominal pain with recent admit at [facility] for recurrent flare with Remicade given and steroids with worsening of symptoms since discharge.
Afebrile,BP's have been low
Acute on chronic anemia present: being transfused today
CRP remains >270
Notes symptomatic improvement on current steroid regimen
--No plans at this time for emergent surgery, will follow for continued improvement with medical optimization
--On IV steroids, consideration for resuming a biologic as per GI
--CM following: lost her home during prior admission at [facility], complicating care home management
--XR is planned for later today
--Currently NPO
--Analgesics as needed
Subjective Data
-
Date of Service: August 02, 2024
Patient seen and examined at bedside. Denies n/v. Notes she is feeling much better today with much less pain since passing some flatus and stools.
Objective Data
-
Intake and Output
08/01/24 08/02/24 08/03/24
06:59 06:59 06:59
Intake Total 1200 / 1200 1510 / 1510 0 / 0
Balance 1200 / 1200 1510 / 1510 0 / 0
Intake:
Oral fluids 1200 / 1200
IV fluids (Total) 1400 / 1400
IV piggybacks 110 / 110
Blood Product Amount Infused ( 0 / 0
mL)
Packed Rbc Leukoreduced Unit 0 / 0
[id number]
Other:
Number of approximated MODERATE 2
amounts of urine
Number of approximated LARGE 1 1
amounts of urine
Number of unmeasured liquid
stools
Rectum 1
Vital Signs
Temp Pulse Resp BP Pulse Ox
98 F 71 17 94/68 100
08/02/24 12:10 08/02/24 12:10 08/02/24 12:10 08/02/24 12:10 08/02/24 12:10
Lab Results
08/02/24 03:52
08/02/24 03:52
Calcium 7.6 mg/dl (8.4-10.2) L 08/02/24 03:52
Magnesium 2.1 mg/dl (1.6-2.3) 07/28/24 06:36
Total Bilirubin 0.3 mg/dl (0.2-1.3) 08/01/24 06:22
AST 16 U/L (14-36) 08/01/24 06:22
ALT 27 U/L (0-35) 08/01/24 06:22
Alkaline Phosphatase 458 U/L (38-126) H 08/01/24 06:22
Total Protein 4.4 g/dl (6.3-8.2) L 08/01/24 06:22
Albumin 2.1 g/dl (3.5-5.0) L 08/01/24 06:22
Physical Exam
-
NAD
ABD soft, generalized tenderness to light palpation, mild distention
--- NOTE | 2024-08-02 18:08 | PTCARENOTE ---
Pt continues to refuse surgical intervention. Wants to try medical management. Declines to get OOB today. Hgb this morning 7.6: 1 unit PRBCs ordered and administered. Pt regularly requesting IV Dilaudid. GI team ordered CLD at dinner. Abd xray taken.
[2024-08-02] MEDS: D5/0.45%NSS with KCL 10 MEQ IV (18:27)
[2024-08-02] MEDS: LOVENOX 40 MG SC (19:22)
[2024-08-03] VITALS (16 sets, daily range): BP systolic 83–118; BP diastolic 47–86; PULSE 77–87; O2SAT 98
--- NOTE | 2024-08-03 00:48 | PTCARENOTE ---
Pt received from previous RN. Pt AAO. NSR on monitor. HR 80. Sat 95% and RA. pt c/o 9/10 abdominal pain. kpad in use. Pt requesting ordered Dilaudid, medication administered as ordered. Tolerating CL diet. Call light in reach.
[2024-08-03] MEDS: SOLU-MEDROL PF 20 MG IV ×3 (02:52→18:22)
[2024-08-03] MEDS: DILAUDID 0.5 MG IV ×6 (02:54→21:26)
[2024-08-03 05:52] LABS: Hemoglobin 8.9 g/dL (12.0-16.0); Mean Corpuscular Hgb 29.9 pg (27.0-31.0); Mean Corpuscular Volume 90.6 fL (81.0-99.0); Mean Platelet Volume 8.8 fL (7.4-10.4); Platelet Count 331 10^3/uL (130-400); Red Blood Cell Count 2.98 10^6/uL (4.20-5.40); Red Cell Dist. Width 16.8 % (11.5-14.5); White Blood Cell Count 8.1 10^3/uL (4.8-10.8)
[2024-08-03 05:56] LABS: Blood Urea Nitrogen 12 mg/dl (7-17); Calcium 7.9 mg/dl (8.4-10.2); Carbon Dioxide 23 mmol/L (22-30); Chloride 102 mmol/L (98-107); Estimated Creatinine Clearance 104 ml/min; Glucose 125 mg/dl (70-99); Potassium 4.3 mmol/L (3.5-5.1); Sodium 134 mmol/L (135-145); eGFR > 60.00
[2024-08-03] MEDS: D5/0.45%NSS with KCL 10 MEQ 1000 IV (06:45)
[2024-08-03 08:34] LABS: Nucleated Red Blood Cells % 0 %
[2024-08-03 08:36] LABS: Absolute Neutrophils -Man Diff 6.8 10^3/uL (1.4-6.5); Band Neutrophils 24 % (0-3)
[2024-08-03 08:37] LABS: Anisocytosis Slight; Hypochromasia 1+; Lymphocytes 6 % (20-51); Metamyelocytes 1 % (-); Monocytes 8 % (2-9); Myelocytes 1 % (-); Normal RBC Morphology No; Platelets Checked Yes; Segmented Neutrophils 60 % (42-75)
[2024-08-03 08:38] LABS: Total Cells Counted 100
[2024-08-03] MEDS: PROTONIX IV 40 MG IV (09:24)
[2024-08-03] MEDS: OSCAL 500 + D 500 MG PO (09:24)
[2024-08-03] MEDS: MYCOSTATIN ORAL SUSPENSION 5 ML PO ×4 (09:24→21:25)
[2024-08-03] MEDS: LIDOCAINE 4% PATCH TOPICAL ×2 (09:25→09:31)
--- NOTE | 2024-08-03 11:10 | W.PN.GI.CBS2 ---
Today's Communication / Plan
-
continue IV steroids
advance to full liquids
Assessment / Plan
-
54-year-old female with past medical history of GERD, degenerative disc disease with back injury of L4-L5, psoriasis 'Crohn's and colitis'. Initially diagnosed in [address] Marcos Brower and then followed by Dr. Christian Brandon with her first
colonoscopy at that time. The patient states that she was initially started on steroids and is to call followed by a single dose of Remicade in 2003. With second attack in 2010 treated with steroids and Asacol 2010 per patient. With follow-up in
[address] Roche with colonoscopy and states she was in 'remission' with no need for medication since that time until this June when she required hospitalization at [facility] with treatment with steroids
mesalamine and Remicade initiation on 07/04/2024.
She was discharged on steroid taper 60 mg to reduce by 10 mg every 10 days. She did not receive mesalamine due to financial constraints. The patient is homeless. She was staying with a friend but is unable to do so anymore. She was having 5
bloody bowel movements daily. EMS was called and she was brought to [facility] where we are seeing her now for further recommendations. CTAP with colitis and proctitis. Dr. Kong who did her flexible sigmoidoscopy on 06/27/2024. He states
he was able to advance to 20 cm secondary to angulation and edema. He states there was erythema and serpentine like ulcers. He states there was also cobblestoning. This appeared Crohn's like in appearance.
07/31/24 CT with IV and oral
Lack of oral contrast opacification of large bowel with markedly distended large bowel through to the proximal sigmoid colon with air and fluid, smooth elongated tapering to normal caliber mid to distal sigmoid with sigmoid and rectal liquid stool,
findings possibly representing ileus associated with patient's known IBD. No free air.
New tiny left pleural effusion and accompanying bilateral lower lobe subsegmental atelectasis.
Atrophic right kidney again noted.
Large uterine lesion again seen likely representing degenerated leiomyoma.
Mildly distended gallbladder again suspected. No findings to suggest biliary tract dilatation.
Impression
- Indeterminant IBD suspect crohn's diagnosed 2003
-cont abdominal pain worse LLQ
-low grade fever
-elevated CRP
- Anemia
-thromobocytosis
- Homelessness
-hypoalbuminemia
-increased alk phos
Recommendations
continue IV steroids
Pt has continued to improve
monitor labs
advance to full liquids
will likely give remicade vs other IBD specific treatment tomorrow pt has [place] first and will look into coverage as well
Subjective
Subjective
Date Service: August 03, 2024
Pt feeling a lot better in terms of abd distention, pain. did have xray last night that showed significant colon distention unchanged but then did pass gas and felt better.
Objective
Data Reviewed
Laboratory Data:
Laboratory Results
08/03/24 04:27
08/03/24 04:27
Laboratory Results
PT 18.4 Sec (11.4-14.6) H 08/01/24 10:44
INR 1.55 08/01/24 10:44
APTT 47.3 Sec (23.4-35.0) H 08/01/24 10:44
Magnesium 2.1 mg/dl (1.6-2.3) 07/28/24 06:36
Total Bilirubin 0.3 mg/dl (0.2-1.3) 08/01/24 06:22
AST 16 U/L (14-36) 08/01/24 06:22
ALT 27 U/L (0-35) 08/01/24 06:22
Alkaline Phosphatase 458 U/L (38-126) H 08/01/24 06:22
Lipase 33 U/L (23-300) 07/25/24 20:26
Vital Signs and I&O:
Vital Signs
Temp Pulse Resp BP Pulse Ox
97.7 F 67 9 94/74 95
08/03/24 07:30 08/03/24 06:00 08/03/24 06:00 08/03/24 06:00 08/03/24 06:00
I&O
08/02/24 08/03/24 08/04/24
06:59 06:59 06:59
Intake Total 1510 / 1510 820 / 820
Balance 1510 / 1510 820 / 820
Physical Exam
Physical Exam
GI: Soft and Non Distended (improved distention and tenderness)
--- NOTE | 2024-08-03 12:03 | W.PN.GS2 ---
Addendum entered and electronically signed by Robi Metcalf MD 08/03/24 12:34:
I saw and examined the patient.
The Case Manager's note was reviewed and I agree with the note.
Comment: Incremental improvement each day. Pain improving, passing flatus, denies n/v. Exam soft, mild ttp diffusely. Appears to be responding to medical mgmt, will defer surgery for now. CRS will follow peripherally.
Original Note:
Today's Communication / Plan
-
Diet advancements as per GI
Assessment / Plan
-
54 yo female with h/o IBD, suspected Crohn's presenting with abdominal pain with recent admit at [facility] for recurrent flare with Remicade given and steroids with worsening of symptoms since discharge.
Afebrile,BP's have been low
Acute on chronic anemia present: stable s/p transfusion 08/02
CRP >270, No leukocytosis
XR with continued lg bowel distention
Notes symptomatic improvement on current steroid regimen
--No plans at this time for emergent surgery, continue medical optimization
--On IV steroids, consideration for resuming a biologic as per GI
--CM following: lost her home during prior admission at [facility], complicating skilled nursing management
--Diet advancement as per GI
--Analgesics as needed
Subjective Data
-
Date of Service: August 03, 2024
Patient seen and examined at bedside with Dr. Metcalf. Continues to note improvement in pain and symptoms. Denies n/v. Passing some minimal flatus.
Objective Data
-
Intake and Output
08/02/24 08/03/24 08/04/24
06:59 06:59 06:59
Intake Total 1510 / 1510 820 / 820
Balance 1510 / 1510 820 / 820
Intake:
Oral fluids 120 / 120
IV fluids (Total) 1400 / 1400 200 / 200
IV piggybacks 110 / 110
Blood products 250 / 250
Blood Product Amount Infused ( 250 / 250
mL)
Packed Rbc Leukoreduced Unit 250 / 250
[id number]
Other:
Number of approximated MODERATE 1
amounts of urine
Number of approximated LARGE 1 1
amounts of urine
Number of unmeasured liquid
stools
Rectum 1
Vital Signs
Temp Pulse Resp BP Pulse Ox
97.7 F 67 9 94/74 95
08/03/24 07:30 08/03/24 06:00 08/03/24 06:00 08/03/24 06:00 08/03/24 06:00
Lab Results
08/03/24 04:27
08/03/24 04:27
Calcium 7.9 mg/dl (8.4-10.2) L 08/03/24 04:27
Magnesium 2.1 mg/dl (1.6-2.3) 07/28/24 06:36
Total Bilirubin 0.3 mg/dl (0.2-1.3) 08/01/24 06:22
AST 16 U/L (14-36) 08/01/24 06:22
ALT 27 U/L (0-35) 08/01/24 06:22
Alkaline Phosphatase 458 U/L (38-126) H 08/01/24 06:22
Total Protein 4.4 g/dl (6.3-8.2) L 08/01/24 06:22
Albumin 2.1 g/dl (3.5-5.0) L 08/01/24 06:22
Physical Exam
-
NAD
ABD soft, generalized tenderness to light palpation, mild to moderate distention
--- NOTE | 2024-08-03 16:36 | W.PN.HOSP.TC ---
Today's Communication/Plan
-
Remicade as per GI
follow labs, BP
Assessment / Plan
Assessment / Plan
Assessment/Plan
Patient with history of inflammatory bowel disease (Crohn's and ulcerative colitis), psoriasis who presented to the emergency department with persistent abdominal pain diarrhea and nausea status post admission for exacerbation in June 2024 at
[facility]. She was discharged on a prednisone taper, mesalamine and given a dose of Remicade prior to discharge. Patient was unable to fill the mesalamine but has continued on the prednisone taper pending follow-up with
farm labor contractor. She is however having persistent to worsening symptoms and unable to wait for the appointment with farm labor contractor. Labs remarkable for anemia with hemoglobin of 8.1 (on admission)-->8.7-->8.9-->7.8-->8.8-->8.6-->7.6-unit
blood transfused-->8.9
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
#GI -abdominal pain, frequent bloody and loose stools, tenderness, consistent with active inflammatory bowel disease.
CT scan showed colitis 07/26: Diffuse colonic and rectal wall thickening with some stranding in the adjacent fat consistent with diffuse colitis and likely secondary to known ulcerative colitis.
10.8 x 8.4 cm peripherally calcified lesion within the uterus, likely large, partially calcified fibroid.
Atrophic right kidney.
Multilevel degenerative changes of the thoracolumbar spine with grade 1 anterolisthesis of L5 on S1 and bilateral pars defects.
It appears that she was started on induction therapy to achieve remission but patient is not quite responding to the steroids, immunomodulators. Based on the treatment approach suggestion that she has more of an ulcerative colitis picture
'patient has also been diagnosed with Crohn's and has psoriasis
Still with abd pain, input of CRS appreciated, pt moved to IMU 08/01
CT scan 07/31: Lack of oral contrast opacification of large bowel with markedly distended large bowel through to the proximal sigmoid colon with air and fluid, smooth elongated tapering to normal caliber mid to distal sigmoid with sigmoid and rectal
liquid stool, findings possibly representing ileus associated with patient's known IBD. No free air.
New tiny left pleural effusion and accompanying bilateral lower lobe subsegmental atelectasis.
Atrophic right kidney again noted.
Large uterine lesion again seen likely representing degenerated leiomyoma.
Mildly distended gallbladder again suspected. No findings to suggest biliary tract dilatation.
Hyponatremia Na 134 most likely associated with diarrhea
Acute blood loss anemia with baseline chronic iron deficiency anemia
- Clear Liquids Diet advanced to Full Liquids diet 07/27, advanced to Low residue 07/28, but with abdominal pain intensity, pt diet changed back to clear liquids, as per CRS, made NPO 08/01, diet now (08/03) advanced to full liquids
stopped IVF
- IV steroids changed to Prednisone 60 mg daily. As per GI was changed back to IV steroids, as per nursing, decision has been made to dose with Remicade 08/04
Pt remains very symptomatic, with diarrhea and abdominal pain,discussed with Mukund Harding (CRS), consult placed for their input
Pt feels strongly that would not want surgical intervention (Colectomy). Reviewed with her this aspect again 08/02
- Continue daily PPI
- Per report, patient is homeless (states she is between homes, details unclear)
Hypotension
BP better today, post transfusion 104/70 range
#Anemia - ACD vs Iron def Anemia given intermittently bloody stools for week
- Iron studies: Ferritin 239, Fe sat unmeasurable
IV Fe started
- LDH normal. folate is normal. vitamin b12 is high.
- Transfuse if hgb < 7
- Dr. Shyla Doss Texted on-call pathology teacher Dr. Bray on July 26, 2024 morning, to confirm whether someone with inflammatory bowel disease on immunosuppressive medications needs CMV negative, and irradiated blood (in addition to
leukoreduced), but she mentioned that there is no need for CMV negative and irradiated blood but rather in this case can give regular leukoreduced PRBCs. I appreciate Dr. Bray's assistance.
- 1 unit of PRBC transfused on 07/26/24, 2nd unit 08/02
Once acute GI issues have settled, Pt concerned about weakness and believes she should go to a rehab facility prior to going home
await CM and insurance prior auth. PT/OT input recommending SNF appreciated
DVT Prophylaxis - Lovenox subq
Code Status - Full Code
Anticipated Discharge: > 48 hours
Subjective/Interval History
-
Date of Service: August 03, 2024
Appears less distressed
Objective Data
-
Labs:
Laboratory Results
08/03/24
04:27
WBC 8.1
Hgb 8.9 L
Hct 27.0 L
Plt Count 331
Sodium 134 L
Potassium 4.3
Chloride 102
Carbon Dioxide 23
BUN 12
Creatinine 0.5 L
Glucose 125 H
Calcium 7.9 L
Vital Signs:
Vital Signs
Temp Pulse Resp BP Pulse Ox
97.9 F 71 20 104/69 97
08/03/24 15:20 08/03/24 12:00 08/03/24 12:00 08/03/24 12:00 08/03/24 12:00
I&O
08/02/24 08/03/24 08/04/24
06:59 06:59 06:59
Intake Total 1510 / 1510 820 / 820
Balance 1510 / 1510 820 / 820
Review of Systems
-
History Source: Patient and Coordinated Provider
Constitutional: Reports Weakness; Denies Fever (afebrile)
EENT: Reports No Symptoms Reported
Respiratory: Reports No Symptoms
Cardiac: Reports No Symptoms; Denies Chest Pain
Abdomen/GI: Reports Abdominal Pain (still with pain, though slightly less) and Diarrhea (slighly less intense)
Genitourinary: Denies No Symptoms
Physical Exam
-
General: Well Developed, Well Nourished and No Apparent Distress
HEENT: Normocephalic, Atraumatic, Moist Mucous Membranes and Thrush (moderate, on Nystatin)
Respiratory: Clear to Auscultation; Negative Wheezes, Rales or Rhonchi
Cardiac: Regular Rhythm and S1/S2
GI: Soft, Tender (diffusely tender) and Distended (slightly less distended); Negative Normal Bowel Sounds (hyperactive BS)
Musculoskeletal: No Clubbing and No Cyanosis
Neuro: Awake, Alert and Oriented
[2024-08-03] MEDS: LOVENOX 40 MG SC (18:22)
--- NOTE | 2024-08-03 19:20 | PTCARENOTE ---
Patient AAOx3, c/o pain 05/24 throughout shift. See mar. VSS. Tolerating FLD. NSR on monitor. Continuing to closely monitor.
[2024-08-04] VITALS (13 sets, daily range): BP systolic 59–128; BP diastolic 47–95
[2024-08-04] MEDS: DILAUDID 0.5 MG IV ×4 (00:26→12:01)
--- NOTE | 2024-08-04 01:36 | PTCARENOTE ---
Pt requesting pain medication Q3 hr to the minute. Pt reports pain 8/10 with little relief post pain medication administration. pt with round dist bloated abd. pt needing assistance to BSC, pt having loose liquid brown stools. Pt weak on feet unable
to walk more than a few steps. Pt easily agitated and demanding when stating her needs. Emotional supports provided. Medication administered as ordered. Will continue to monitor.
[2024-08-04] MEDS: SOLU-MEDROL PF 20 MG IV ×3 (04:04→18:26)
[2024-08-04 05:42] LABS: Hematocrit 28.4 % (37.0-47.0); Hemoglobin 9.5 g/dL (12.0-16.0); Mean Corp Hgb Conc. 33.5 g/dL (33.0-37.0); Mean Corpuscular Hgb 30.4 pg (27.0-31.0); Mean Corpuscular Volume 90.7 fL (81.0-99.0); Platelet Count 287 10^3/uL (130-400); Red Blood Cell Count 3.13 10^6/uL (4.20-5.40); Red Cell Dist. Width 16.4 % (11.5-14.5); White Blood Cell Count 7.5 10^3/uL (4.8-10.8)
[2024-08-04 06:08] LABS: Blood Urea Nitrogen 13 mg/dl (7-17); Calcium 8.2 mg/dl (8.4-10.2); Carbon Dioxide 24 mmol/L (22-30); Chloride 101 mmol/L (98-107); Estimated Creatinine Clearance 104 ml/min; Glucose 90 mg/dl (70-99); Potassium 4.4 mmol/L (3.5-5.1); Sodium 133 mmol/L (135-145); eGFR > 60.00
[2024-08-04] MEDS: PROTONIX IV 40 MG IV (08:07)
[2024-08-04] MEDS: MYCOSTATIN ORAL SUSPENSION 5 ML PO ×4 (08:07→19:59)
[2024-08-04] MEDS: OSCAL 500 + D 500 MG PO (08:07)
[2024-08-04] MEDS: LIDOCAINE 4% PATCH TOPICAL (08:08)
--- NOTE | 2024-08-04 08:15 | W.PN.HOSP.TC ---
Today's Communication/Plan
-
Continue IV steroids
GI planning for flexible sigmoidoscopy tomorrow -- NPO after midnight as per GI
Assessment / Plan
Assessment / Plan
Physical Exam
General: Not in acute distress
HEENT: Normocephalic, Atraumatic, Moist Mucous Membranes and Thrush (moderate, on Nystatin)
Respiratory: Clear to Auscultation
Cardiac: Regular Rhythm and S1/S2
GI: Soft, mild distension, moderate RLQ tenderness
Musculoskeletal: No Cyanosis
Neuro: Awake, Alert and Oriented
Assessment/Plan
Patient with history of inflammatory bowel disease (Crohn's and ulcerative colitis), psoriasis who presented to the emergency department with persistent abdominal pain diarrhea and nausea status post admission for exacerbation in June 2024 at
[facility]. She was discharged on a prednisone taper, mesalamine and given a dose of Remicade prior to discharge. Patient was unable to fill the mesalamine but has continued on the prednisone taper pending follow-up with
pest controller assistant. She is however having persistent to worsening symptoms and unable to wait for the appointment with pest controller assistant. Labs remarkable for anemia with hemoglobin of 8.1 (on admission)-->8.7-->8.9-->7.8-->8.8-->8.6-->7.6-unit
blood transfused-->8.9
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
#GI -abdominal pain, frequent bloody and loose stools, tenderness, consistent with active inflammatory bowel disease.
CT scan showed colitis 07/26/24, and as per radiologist's report: Diffuse colonic and rectal wall thickening with some stranding in the adjacent fat consistent with diffuse colitis and likely secondary to known ulcerative colitis.
10.8 x 8.4 cm peripherally calcified lesion within the uterus, likely large, partially calcified fibroid.
Atrophic right kidney.
Multilevel degenerative changes of the thoracolumbar spine with grade 1 anterolisthesis of L5 on S1 and bilateral pars defects.
It appears that she was started on induction therapy to achieve remission but patient is not quite responding to the steroids, immunomodulators. Based on the treatment approach suggestion that she has more of an ulcerative colitis picture
'patient has also been diagnosed with Crohn's and has psoriasis
Still had abdominal pain, input of CRS appreciated, pt moved to IMU 08/01
CT scan 07/31/24, and as per radiologist's report: Lack of oral contrast opacification of large bowel with markedly distended large bowel through to the proximal sigmoid colon with air and fluid, smooth elongated tapering to normal caliber mid to
distal sigmoid with sigmoid and rectal liquid stool, findings possibly representing ileus associated with patient's known IBD. No free air.
New tiny left pleural effusion and accompanying bilateral lower lobe subsegmental atelectasis.
Atrophic right kidney again noted.
Large uterine lesion again seen likely representing degenerated leiomyoma.
Mildly distended gallbladder again suspected. No findings to suggest biliary tract dilatation.
Hyponatremia Na 134 most likely associated with diarrhea
Acute blood loss anemia with baseline chronic iron deficiency anemia
- Clear Liquids Diet advanced to Full Liquids diet 07/27, advanced to Low residue 07/28, but with abdominal pain intensity, pt diet changed back to clear liquids, as per CRS, made NPO 08/01, diet now (08/03) advanced to full liquids
- IV steroids changed to Prednisone 60 mg daily. As per GI was changed back to IV steroids, as per nursing
- GI working on getting patient Remicade/Infliximab
- Plans for flexible sigmoidoscopy tomorrow
Pt remains very symptomatic, with diarrhea and abdominal pain,discussed with Mukund Harding (CRS), consult placed for their input
Pt feels strongly that would not want surgical intervention (Colectomy). Reviewed with her this aspect again 08/02
- Continue daily PPI
- Per report, patient is homeless (states she is between homes, details unclear)
Hypotension - RESOLVED
#Anemia - ACD vs Iron def Anemia given intermittently bloody stools for week
- Iron studies: Ferritin 239, Fe sat unmeasurable
IV Fe started
- LDH normal. folate is normal. vitamin b12 is high.
- Transfuse if hgb < 7
- Dr. Shyla Doss Texted on-call candy forming machine operator Dr. Bray on July 26, 2024 morning, to confirm whether someone with inflammatory bowel disease on immunosuppressive medications needs CMV negative, and irradiated blood (in addition to
leukoreduced), but she mentioned that there is no need for CMV negative and irradiated blood but rather in this case can give regular leukoreduced PRBCs. I appreciate Dr. Bray's assistance.
- 1 unit of PRBC transfused on 07/26/24, 2nd unit 08/02
Once acute GI issues have settled, Pt concerned about weakness and believes she should go to a rehab facility prior to going home
await CM and insurance prior auth. PT/OT input recommending SNF appreciated
DVT Prophylaxis - Lovenox subq
Code Status - Full Code
Anticipated Discharge: > 48 hours
Subjective/Interval History
-
Date of Service: August 04, 2024
Patient was seen and examined. She had small, loose brown bowel movements earlier prior to patient encounter.
Objective Data
-
Labs:
Laboratory Results
08/04/24
04:40
WBC 7.5
Hgb 9.5 L
Hct 28.4 L
Plt Count 287
Sodium 133 L
Potassium 4.4
Chloride 101
Carbon Dioxide 24
BUN 13
Creatinine 0.6
Glucose 90
Calcium 8.2 L
Vital Signs:
Vital Signs
Temp Pulse Resp BP Pulse Ox
97.6 F 67 9 99/71 96
08/04/24 04:00 08/04/24 04:00 08/04/24 04:00 08/04/24 04:00 08/04/24 04:00
I&O
08/03/24 08/04/2424
06:59 06:59 06:59
Intake Total 820 / 820
Balance 820 / 820
--- NOTE | 2024-08-04 09:14 | W.PN.CRS1 ---
Today's Communication / Plan
-
abd xray
continue steriods
biologics per GI
Assessment/Plan
-
54 yo female with h/o IBD, suspected Crohn's presenting with abdominal pain with recent admit at [facility] for recurrent flare with Remicade given and steroids with worsening of symptoms since discharge.
Afebrile,BP's have been low
Acute on chronic anemia present: stable s/p transfusion 08/02
CRP >270, No leukocytosis
XR with continued lg bowel distention
Notes symptomatic improvement on current steroid regimen
--No plans at this time for emergent surgery, continue medical optimization
--On IV steroids, biologic as per GI who is still investigating with insurance
--CM following: lost her home during prior admission at [facility], complicating longterm management
--Diet advancement as per GI, currently on fulls
--Analgesics as needed
--Abdominal xray pending
Subjective Data
Subjective Data
Date of Service: August 04, 2024
Patient states she is feeling a lot better. She still has pain but it is a lot less. She denies nausea or vomiting. She had three bowel movements per day, and per nursing notes, was nonbloody. She has flatus. She is tolerating fulls.
Objective Data
-
Vital Signs
Temp Pulse Resp BP Pulse Ox
97.4 F 67 9 99/71 96
08/04/24 07:25 08/04/24 04:00 08/04/24 04:00 08/04/24 04:00 08/04/24 04:00
Intake & Output
08/03/24 08/04/24 08/05/24
06:59 06:59 06:59
Intake Total 820 / 820 120 / 120
Balance 820 / 820 120 / 120
Intake:
Oral fluids 120 / 120 120 / 120
IV fluids (Total) 200 / 200
Blood products 250 / 250
Blood Product Amount Infused ( 250 / 250
mL)
Packed Rbc Leukoreduced Unit 250 / 250
[id number]
Other:
Number of approximated SMALL 1
amounts of urine
Number of approximated MODERATE 1 1
amounts of urine
Number of approximated LARGE 1
amounts of urine
Number of unmeasured liquid
stools
Rectum 1
Lab Results
08/04/24 04:40
08/04/24 04:40
Physical Exam
-
General: No Acute Distress and AOx3
Abdomen: Soft, Distended (mild) and Tender (RLQ - mild to moderate (improving))
Skin: Warm and Dry
--- NOTE | 2024-08-04 10:43 | PTCARENOTE ---
Patient still c/o abdominal pain 05/24. See mar. Using heating kpad. Small liquid BMs. VSS. Tolerating FLD, requesting diet advancement. Continuing to monitor.
--- NOTE | 2024-08-04 11:24 | W.PN.GI.CBS2 ---
Addendum entered and electronically signed by Tiffanie Lino MD 08/04/24 16:13:
time spent reviewing records and formulating plan over 1 hour
Addendum entered and electronically signed by Tiffanie Lino MD 08/04/24 16:11:
I saw and examined the patient.
The SALESPERSON HANDBAGS or PA's note was reviewed and I agree with the note.
Comment:
This patient is doing much better with less distention. She has tolerated full liquids.
abd: soft, mildly distended and tender, improved
impression:
Probable crohns colitis
abdominal distention/pain improved
plan:
1. get inflixamab level and antibody levels as she got a dose about a month ago
2. flex sig to reevaluate and r/o cmv
3. ideally will then initiate infliximab
4. will need to continue medication to get benefit as she hasn't been consistent in the past due to home situation
Addendum entered and electronically signed by KRYSTAL Day 08/04/24 15:22:
-Sent labs for Remicade level and antibody
-Reaching out to Pharmacist Chago Aguilar to see if we have Remicade 10 mg/kg (patient is 69 kg) available. Would reinitiate and start as if was 0,2,6 then every 8 weeks. Can work on outpatient infusion through our office.
-Last sigmoidoscopy did not check for CMV, reviewed pathology sent over. Will discuss about repeating possible limited sigmoidoscopy.
-Case Management notes reviewed. Rehab/SNF with possible LTC.
Original Note:
Today's Communication / Plan
-
as per plan
Assessment / Plan
-
54-year-old female with past medical history of GERD, degenerative disc disease with back injury of L4-L5, psoriasis 'Crohn's and colitis'. Initially diagnosed in [address] Marcos Brower and then followed by Dr. Christian Brandon with her first
colonoscopy at that time. The patient states that she was initially started on steroids and is to call followed by a single dose of Remicade in 2003. With second attack in 2010 treated with steroids and Asacol 2010 per patient. With follow-up in
[address] Roche with colonoscopy and states she was in 'remission' with no need for medication since that time until this June when she required hospitalization at [facility] with treatment with steroids
mesalamine and Remicade initiation on 07/07/2024. She was discharged on steroid taper 60 mg to reduce by 10 mg every 10 days. She did not receive mesalamine due to financial constraints. The patient is homeless. She was staying with a friend but
is unable to do so anymore. She was having 5 bloody bowel movements daily. EMS was called and she was brought to [facility] where we are seeing her now for further recommendations. CTAP with colitis and proctitis. Dr. Kong who did her
flexible sigmoidoscopy on 06/27/2024. He states he was able to advance to 20 cm secondary to angulation and edema. He states there was erythema and serpiginous like ulcers. He states there was also cobblestoning. This appeared Crohn's like in
appearance.

Records from [facility] Admission 06/27/24-07/09/24:
06/27/2024 Labs: WBC 11.4, hemoglobin 10.6, hematocrit 31.2, platelets 393, sodium 129, potassium 4.1, BUN 25, creatinine 1.23, albumin 2.7, total bilirubin 0.5, direct bilirubin 0.2, AST 11, ALT 15, alk phos 99. GI PCR profile: Negative for
all infectious GI pathogens. ESR 79, CRP 86.8, fecal [facility] 2310.
06/27/2024 flex sig ([place]ilan): Moderate serpiginous ulcerations with cobblestoning. Consistent with Crohn's colitis. Pathology sigmoid colon. Minimal active colitis with few neutrophils and fibrinous debris. Melanosis coli. Absence of identified
granulomata or crypt abscesses. Rectum biopsy rare neutrophil with increased chronic inflammation and crypt distortion. Melanosis coli. Absence of identified granulomata or crypt abscesses.
06/30/2024 CT abdomen and pelvis: Segmental narrowing in mid descending colon with fluid distention of a send in colon and gaseous distention of transverse and proximal descending colon. Worrisome for constricting lesion. Recommend colonoscopy.
Large pelvic mass with peripheral rim calcification. Indeterminate for uterine and adnexal origin. Atrophic right kidney.
07/03/2024 MRI pelvis: No pelvic mass seen on CT scan that corresponds to an 11 centimeter subserosal nonenhancing fibroid arising from right lateral body of uterus. Patient seen by [employer] at [facility].
Labs 07/03/2024 : Hepatitis C antibody negative, hepatitis B surface antigen negative, hepatitis A antibody total negative, QuantiFERON gold negative. Hemoglobin 8.9.
Remicade infusion 07/07/2024
07/09/2024 hemoglobin 8.1, discharged to home with prednisone oral taper 60 mg daily to taper by 10 mg every 10 days. Mesalamine (patient was unable to obtain), this was never initiated in the hospital. Patient was to follow up with Dr. Roche on
07/31/24.

07/31/24 CT with IV and oral
Lack of oral contrast opacification of large bowel with markedly distended large bowel through to the proximal sigmoid colon with air and fluid, smooth elongated tapering to normal caliber mid to distal sigmoid with sigmoid and rectal liquid stool,
findings possibly representing ileus associated with patient's known IBD. No free air.
New tiny left pleural effusion and accompanying bilateral lower lobe subsegmental atelectasis.
Atrophic right kidney again noted.
Large uterine lesion again seen likely representing degenerated leiomyoma.
Mildly distended gallbladder again suspected. No findings to suggest biliary tract dilatation.
08/04/24 Abd XR:
IMPRESSION:
There is new bowel wall thickening with some thumbprinting in the mid descending colon such as may be seen with inflammatory bowel disease or ischemia.
The bowel gas pattern is otherwise not significantly changed with differential diagnosis including ileus and Marisa's syndrome
Impression
- Indeterminant IBD suspect crohn's diagnosed 2003, Initiated on Remicade 07/07/24
-elevated CRP
- Anemia
- Homelessness
-hypoalbuminemia
-increased alk phos
Recommendations
continue IV steroids
Pt has continued to improve
monitor labs
advance to full liquids, add Ensure clear. Patient prefers this to other supplements.
will likely give remicade vs other IBD specific treatment pt has [place] [facility] and will look into coverage as well
Subjective
Subjective
Date of Service: August 04, 2024
Patient states that she is feeling a little bit better today. Still with abdominal tenderness. Passing flatus, had 3 liquid brown BM in the past 24 hrs. CRP decreasing and is now 88.50 from > 270.00. She states that she is not as distended. She is
tolerating full liquid diet without any pain this am. Was able to review 188 pages from [facility] records. Will be detailed in other documentation in progress note.
Objective
Data Reviewed
Laboratory Data:
Laboratory Results
08/04/24 04:40
08/04/24 04:40
Laboratory Results
PT 18.4 Sec (11.4-14.6) H 08/01/24 10:44
INR 1.55 08/01/24 10:44
APTT 47.3 Sec (23.4-35.0) H 08/01/24 10:44
Magnesium 2.1 mg/dl (1.6-2.3) 07/28/24 06:36
Total Bilirubin 0.3 mg/dl (0.2-1.3) 08/01/24 06:22
AST 16 U/L (14-36) 08/01/24 06:22
ALT 27 U/L (0-35) 08/01/24 06:22
Alkaline Phosphatase 458 U/L (38-126) H 08/01/24 06:22
Lipase 33 U/L (23-300) 07/25/24 20:26
Vital Signs and I&O:
Vital Signs
Temp Pulse Resp BP Pulse Ox
97.4 F 68 18 115/81 96
08/04/24 07:25 08/04/24 10:13 08/04/24 10:13 08/04/24 10:13 08/04/24 10:00
I&O
08/03/24 08/04/24 08/05/24
06:59 06:59 06:59
Intake Total 820 / 820 120 / 120
Balance 820 / 820 120 / 120
Physical Exam
Physical Exam
HEENT: Anicteric
Cardiology: Normal Sinus Rhythm
Pulmonary: Clear (anterior)
GI: Soft (mildly distended), Tender (mild tenderness diffuse) and Normal Bowel Sounds
Neuro: Non Focal
--- NOTE | 2024-08-04 11:46 | CM ---
Patient who is homeless with Dx active inflammatory bowel disease, anemia. Room air. Receiving IV Steroids, IV Protonix, IV Dilaudid prn. Room air. Full liquid diet. PT/OT recommend skilled rehab.
Spoke with Danielle, [facility]; they are able to accept the patient when she is medically ready. Danielle is aware of patient's homeless status and they are prepared to keep her in LTC as needed.
Met with patient who agrees to short term SNF at [facility] and LTC there if needed. Patient says she doubts she can go to her brother's house in [facility] to stay for a while until she is able to obtain housing, as he has a family. Discussed
strategies for regaining money and housing. Patient volunteers that she would like to apply for SS disability for her Crohns Dx, and she has an iPad with her. Suggested she go to social security website and start the process/application. Informed
patient she will need her PCP to sign SS Disability forms. Gave patient [employer]help[employer] information sheet for additional housing and related resources.
Plan [facility] SNF when medically ready.
[2024-08-04] MEDS: DILAUDID 0.25 MG IV (16:12)
[2024-08-04] MEDS: LOVENOX 40 MG SC (18:26)
[2024-08-04] MEDS: ROXICODONE 5 MG PO (19:59)
--- NOTE | 2024-08-04 22:58 | PTCARENOTE ---
Received patient from previous RN. Patient is Aox3 and on room air. Patient is using bedside commode with 1 person assist. Patient is NPO after midnight due to Flexible Sigmoidoscopy planned for tomorrow. Patient complains about abdominal pain, see
MAR. Patient is resting in bed with call quiñones in reach.
[2024-08-05] VITALS (29 sets, daily range): BP systolic 60–157; BP diastolic 55–116
[2024-08-05] MEDS: ROXICODONE 5 MG PO (00:23)
[2024-08-05] MEDS: SOLU-MEDROL PF 20 MG IV ×3 (02:00→20:05)
[2024-08-05] MEDS: DILAUDID 0.5 MG IV ×4 (04:20→21:28)
[2024-08-05 06:21] LABS: Glucose - Point of Care 108 mg/dl (70-99)
[2024-08-05] MEDS: LIDOCAINE 4% PATCH TOPICAL (08:52)
[2024-08-05 09:45] LABS: Hematocrit 32.1 % (37.0-47.0); Hemoglobin 10.6 g/dL (12.0-16.0); Mean Corpuscular Hgb 30.3 pg (27.0-31.0); Mean Corpuscular Volume 91.7 fL (81.0-99.0); Platelet Count 330 10^3/uL (130-400); Red Cell Dist. Width 16.5 % (11.5-14.5); White Blood Cell Count 7.1 10^3/uL (4.8-10.8)
[2024-08-05 10:00] LABS: ALT (SGPT) 18 U/L (0-35); AST (SGOT) 12 U/L (14-36); Albumin 2.2 g/dl (3.5-5.0); Alkaline Phosphatase 308 U/L (38-126); Blood Urea Nitrogen 13 mg/dl (7-17); Calcium 8.2 mg/dl (8.4-10.2); Carbon Dioxide 26 mmol/L (22-30); Chloride 97 mmol/L (98-107); Estimated Creatinine Clearance 89 ml/min; Glucose 104 mg/dl (70-99); Potassium 4.2 mmol/L (3.5-5.1); Sodium 133 mmol/L (135-145); Total Bilirubin 0.3 mg/dl (0.2-1.3); Total Protein 4.6 g/dl (6.3-8.2); eGFR > 60.00
[2024-08-05] MEDS: MYCOSTATIN ORAL SUSPENSION PO ×4 (10:23→20:48)
[2024-08-05] MEDS: OSCAL 500 + D PO (10:24)
[2024-08-05] MEDS: ZOLOFT PO (10:24)
[2024-08-05] MEDS: DILAUDID 0.25 MG IV (10:29)
[2024-08-05] MEDS: PROTONIX IV IV (10:48)
--- NOTE | 2024-08-05 10:50 | PTCARENOTE ---
Addendum entered by Vivian Jarquin 08/05/24 13:02:
Flex sig cancelled, pt emergently for OR. CHG bath and nasal swabs done, linens changed. Pt extremely tearful and scared, Fireperson to bedside for emotional support. To OR via bed with this RN and transport volunteer.
Original Note:
Pt rang call quiñones shortly after shift change. Tearful, shaking and in acute distress. C/o excruciating abdominal pain. PRN Dilaudid given without relief, TT sent to Dr. Mansfield and Dr. Vasquez. Order received for additional breakthrough dose,
administered as ordered. 300ml tap water enema administered prior to GI lab per orders. Order placed for obstruction series, d/w Dr. Vasquez and GI Lab, pt sent to XR and then for GI lab afterwards for flex sig.
--- NOTE | 2024-08-05 11:18 | W.PN.HOSP.TC ---
Today's Communication/Plan
-
Pneumoperitoneum -- had surgery today
Monitor closely post-op
DVT Prophylaxis with SCDs and Knee High TEDs for now
Assessment / Plan
Assessment / Plan
Physical Exam
General: In distress due to pain
HEENT: Normocephalic, Atraumatic, Moist Mucous Membranes and Thrush (moderate, on Nystatin)
Respiratory: Clear to Auscultation
Cardiac: Regular Rhythm and S1/S2
GI: Soft, mild distension, generalized tenderness
Musculoskeletal: No Cyanosis
Neuro: Awake, Alert and Oriented
Assessment/Plan
Patient with history of inflammatory bowel disease (Crohn's and ulcerative colitis), psoriasis who presented to the emergency department with persistent abdominal pain diarrhea and nausea status post admission for exacerbation in June 2024 at
[facility]. She was discharged on a prednisone taper, mesalamine and given a dose of Remicade prior to discharge. Patient was unable to fill the mesalamine but has continued on the prednisone taper pending follow-up with
wind turbine blade repair technician. She is however having persistent to worsening symptoms and unable to wait for the appointment with wind turbine blade repair technician. Labs remarkable for anemia with hemoglobin of 8.1 (on admission)-->8.7-->8.9-->7.8-->8.8-->8.6-->7.6-unit
blood transfused-->8.9
#Presentation with progressive lower abdominal pain and worsening bloody diarrhea for the past few weeks RN RELIEF CHARGE
#GI -abdominal pain, frequent bloody and loose stools, tenderness, consistent with active inflammatory bowel disease.
#Pneumoperitoneum (suspected perforated colon) on 08/05/24 status post total abdominal colectomy with end-ileostomy on 08/05/[address] scan showed colitis 07/26/24, and as per radiologist's report: Diffuse colonic and rectal wall thickening with some stranding in the adjacent fat consistent with diffuse colitis and likely secondary to known ulcerative colitis.
10.8 x 8.4 cm peripherally calcified lesion within the uterus, likely large, partially calcified fibroid.
Atrophic right kidney.
Multilevel degenerative changes of the thoracolumbar spine with grade 1 anterolisthesis of L5 on S1 and bilateral pars defects.
It appears that she was started on induction therapy to achieve remission but patient is not quite responding to the steroids, immunomodulators. Based on the treatment approach suggestion that she has more of an ulcerative colitis picture
'patient has also been diagnosed with Crohn's and has psoriasis
Still had abdominal pain, input of CRS appreciated, pt moved to IMU 08/01
CT scan 07/31/24, and as per radiologist's report: Lack of oral contrast opacification of large bowel with markedly distended large bowel through to the proximal sigmoid colon with air and fluid, smooth elongated tapering to normal caliber mid to
distal sigmoid with sigmoid and rectal liquid stool, findings possibly representing ileus associated with patient's known IBD. No free air.
New tiny left pleural effusion and accompanying bilateral lower lobe subsegmental atelectasis.
Atrophic right kidney again noted.
Large uterine lesion again seen likely representing degenerated leiomyoma.
Mildly distended gallbladder again suspected. No findings to suggest biliary tract dilatation.
Hyponatremia Na 134 most likely associated with diarrhea
Acute blood loss anemia with baseline chronic iron deficiency anemia
- Clear Liquids Diet advanced to Full Liquids diet 07/27, advanced to Low residue 07/28, but with abdominal pain intensity, pt diet changed back to clear liquids, as per CRS, made NPO 08/01, diet now (08/03) advanced to full liquids, then NPO for
surgery on 08/05/24
- IV steroids changed to Prednisone 60 mg daily. As per GI was changed back to IV steroids, as per nursing
- GI working on getting patient Remicade/Infliximab
- Plans for flexible sigmoidoscopy tomorrow
Pt remains very symptomatic, with diarrhea and abdominal pain,discussed with Mukund Harding (CRS), consult placed for their input
Pt feels strongly that would not want surgical intervention (Colectomy). Reviewed with her this aspect again 08/02
- Continue daily PPI
- Per report, patient is homeless (states she is between homes, details unclear)
Hypotension - RESOLVED
#Anemia - ACD vs Iron def Anemia given intermittently bloody stools for week
- Iron studies: Ferritin 239, Fe sat unmeasurable
IV Fe started
- LDH normal. folate is normal. vitamin b12 is high.
- Transfuse if hgb < 7
- Dr. Shyla Doss Texted on-call director of premium seat sales Dr. Bray on July 26, 2024 morning, to confirm whether someone with inflammatory bowel disease on immunosuppressive medications needs CMV negative, and irradiated blood (in addition to
leukoreduced), but she mentioned that there is no need for CMV negative and irradiated blood but rather in this case can give regular leukoreduced PRBCs. I appreciate Dr. Bray's assistance.
- 1 unit of PRBC transfused on 07/26/24, 2nd unit 08/02
Once acute GI issues have settled, Pt concerned about weakness and believes she should go to a rehab facility prior to going home
await CM and insurance prior auth. PT/OT input recommending SNF appreciated
#Large degenerating fibroid encompassing a good portion of her pelvis based on the CT scan status post MP BSO intraoperatively on 08/05/24
-Follow-up with urogynecology outpatient (colorectal surgery discussed this with Dr. Dickson of outpatient urogynecology)
DVT Prophylaxis - SCDs and Knee-High TEDs for now. Chemical DVT prophylaxis to start when okay per Dr. Lau and Dr. Esparza.
Code Status - Full Code
Pneumoperitoneum needing emergent surgery is a high-risk encounter.
Anticipated Discharge: > 48 hours
Subjective/Interval History
-
Date of Service: August 05, 2024
Patient was seen and examined. She was having very significant abdominal pain this morning.
Objective Data
-
Labs:
Laboratory Results
08/05/24
09:17
WBC 7.1
Hgb 10.6 L
Hct 32.1 L
Plt Count 330
Sodium 133 L
Potassium 4.2
Chloride 97 L
Carbon Dioxide 26
BUN 13
Creatinine 0.7
Glucose 104 H
Calcium 8.2 L
Total Bilirubin 0.3
AST 12 L
ALT 18
Alkaline Phosphatase 308 H
Vital Signs:
Vital Signs
Temp Pulse Resp BP Pulse Ox
98.1 F 47 13 95/79 97
08/05/24 03:30 08/05/24 06:00 08/05/24 06:00 08/05/24 06:00 08/05/24 02:00
I&O
08/04/24 08/05/24 08/06/24
06:59 06:59 06:59
Intake Total 120 / 120
Balance 120 / 120
--- NOTE | 2024-08-05 11:29 | W.PN.GI.CBS2 ---
Today's Communication / Plan
-
Cancel flex sig due to free air. Notified Colorectal Surgery
NPO
Start IV Zosyn
Will continue to follow
Assessment / Plan
-
54-year-old female with past medical history of GERD, degenerative disc disease with back injury of L4-L5, psoriasis 'Crohn's and colitis'. Initially diagnosed in [address] Marcos Brower and then followed by Dr. Christian Brandon with her first
colonoscopy at that time. The patient states that she was initially started on steroids and is to call followed by a single dose of Remicade in 2003. With second attack in 2010 treated with steroids and Asacol 2010 per patient. With follow-up in
[address] Roche with colonoscopy and states she was in 'remission' with no need for medication since that time until this June when she required hospitalization at [facility] with treatment with steroids
mesalamine and Remicade initiation on 07/07/2024. She was discharged on steroid taper 60 mg to reduce by 10 mg every 10 days. She did not receive mesalamine due to financial constraints. The patient is homeless. She was staying with a friend but
is unable to do so anymore. She was having 5 bloody bowel movements daily. EMS was called and she was brought to [facility] where we are seeing her now for further recommendations. CTAP with colitis and proctitis. Dr. Kong who did her
flexible sigmoidoscopy on 06/27/2024. He states he was able to advance to 20 cm secondary to angulation and edema. He states there was erythema and serpiginous like ulcers. He states there was also cobblestoning. This appeared Crohn's like in
appearance.

Records from [facility] Admission 06/27/24-07/09/24:
06/27/2024 Labs: WBC 11.4, hemoglobin 10.6, hematocrit 31.2, platelets 393, sodium 129, potassium 4.1, BUN 25, creatinine 1.23, albumin 2.7, total bilirubin 0.5, direct bilirubin 0.2, AST 11, ALT 15, alk phos 99. GI PCR profile: Negative for
all infectious GI pathogens. ESR 79, CRP 86.8, fecal Carlos Alberto Pro 2310.
06/27/2024 flex sig (Dilan): Moderate serpiginous ulcerations with cobblestoning. Consistent with Crohn's colitis. Pathology sigmoid colon. Minimal active colitis with few neutrophils and fibrinous debris. Melanosis coli. Absence of identified
granulomata or crypt abscesses. Rectum biopsy rare neutrophil with increased chronic inflammation and crypt distortion. Melanosis coli. Absence of identified granulomata or crypt abscesses.
06/30/2024 CT abdomen and pelvis: Segmental narrowing in mid descending colon with fluid distention of a send in colon and gaseous distention of transverse and proximal descending colon. Worrisome for constricting lesion. Recommend colonoscopy.
Large pelvic mass with peripheral rim calcification. Indeterminate for uterine and adnexal origin. Atrophic right kidney.
07/03/2024 MRI pelvis: No pelvic mass seen on CT scan that corresponds to an 11 centimeter subserosal nonenhancing fibroid arising from right lateral body of uterus. Patient seen by Assistant Shift Supervisor Onc at [facility].
Labs 07/03/2024 : Hepatitis C antibody negative, hepatitis B surface antigen negative, hepatitis A antibody total negative, QuantiFERON gold negative. Hemoglobin 8.9.
Remicade infusion 07/07/2024
07/09/2024 hemoglobin 8.1, discharged to home with prednisone oral taper 60 mg daily to taper by 10 mg every 10 days. Mesalamine (patient was unable to obtain), this was never initiated in the hospital. Patient was to follow up with Dr. Roche on
07/31/24.

07/31/24 CT with IV and oral
Lack of oral contrast opacification of large bowel with markedly distended large bowel through to the proximal sigmoid colon with air and fluid, smooth elongated tapering to normal caliber mid to distal sigmoid with sigmoid and rectal liquid stool,
findings possibly representing ileus associated with patient's known IBD. No free air.
New tiny left pleural effusion and accompanying bilateral lower lobe subsegmental atelectasis.
Atrophic right kidney again noted.
Large uterine lesion again seen likely representing degenerated leiomyoma.
Mildly distended gallbladder again suspected. No findings to suggest biliary tract dilatation.
08/04/24 Abd XR:
IMPRESSION:
There is new bowel wall thickening with some thumbprinting in the mid descending colon such as may be seen with inflammatory bowel disease or ischemia.
The bowel gas pattern is otherwise not significantly changed with differential diagnosis including ileus and Pandora's syndrome
08/05/24 OBS- Moderate pneumoperitoneum.
Impression
- Indeterminant IBD suspect crohn's diagnosed 2003, Initiated on Remicade 07/07/24
-elevated CRP
- Anemia
- Homelessness
-hypoalbuminemia
-increased alk phos
Recommendations
continue IV steroids
Pt has continued to improve
monitor labs
advance to full liquids, add Ensure clear. Patient prefers this to other supplements.
will likely give remicade vs other IBD specific treatment pt has [facility] first and will look into coverage as well
Subjective
Subjective
Date of Service: August 05, 2024
pt c/o 07/24 abd pain to nurse this am. OBS series ordered prior to flex sig. She reports BMs/diarrhea and passage of gas
Objective
Data Reviewed
Laboratory Data:
Laboratory Results
08/05/24 09:17
08/05/24 09:17
Laboratory Results
PT 18.4 Sec (11.4-14.6) H 08/01/24 10:44
INR 1.55 08/01/24 10:44
APTT 47.3 Sec (23.4-35.0) H 08/01/24 10:44
Magnesium 2.0 mg/dl (1.6-2.3) 08/05/24 09:17
Total Bilirubin 0.3 mg/dl (0.2-1.3) 08/05/24 09:17
AST 12 U/L (14-36) L 08/05/24 09:17
ALT 18 U/L (0-35) 08/05/24 09:17
Alkaline Phosphatase 308 U/L (38-126) H 08/05/24 09:17
Lipase 33 U/L (23-300) 07/25/24 20:26
Vital Signs and I&O:
Vital Signs
Temp Pulse Resp BP Pulse Ox
98.1 F 47 13 95/79 97
08/05/24 03:30 08/05/24 06:00 08/05/24 06:00 08/05/24 06:00 08/05/24 02:00
I&O
08/04/24 08/05/24 08/06/24
06:59 06:59 06:59
Intake Total 120 / 120
Balance 120 / 120
Physical Exam
Physical Exam
GI: Soft and Tender (moderate tenderness to palpation with guarding)
[2024-08-05 11:54] LABS: % Basophils 0.7 % (0-2); % Immature Granulocytes 0.4 % (0-0.5); % Lymphocytes 10.1 % (20.5-51.1); % Monocytes 3.9 % (1.7-9.3); % Neutrophils 84.9 % (42.2-75.2); Absolute Basophils 0.1 10^3/uL (0-0.2); Absolute Lymphocytes 0.7 10^3/uL (1.2-3.4); Absolute Monocytes 0.3 10^3/uL (0.1-0.6); Nucleated Red Blood Cells % 0 %
[2024-08-05] MEDS: NORMOSOL-R/PLASMALYTE-A 1000 IV ×2 (12:06→20:44)
--- NOTE | 2024-08-05 12:44 | W.PN.CRS1 ---
Addendum entered and electronically signed by Fausto Lau MD 08/05/24 12:53:
Also of note, the patient has a large degenerating fibroid encompassing a good portion of her pelvis based on the CT scan. I discussed these findings with Dr. Dickson of urogynecology and decided against addressing the uterus during today's urgent
surgery. Potential to have this removed transvaginally with another operation down the road.
Original Note:
Today's Communication / Plan
-
OR for subtotal colectomy.
Assessment/Plan
-
IBD Colitis with megacolon and now free ai based on plain film this am. Suspect perforated colon. Discussed situation with patient and recommended trip to OR for open subtotal colectomy with ileostomy plus minus mucus fistula. Operation discussed
in detail including risks and benefits. Risks covered include but not limited to bleeding, infection, ureteral injury, bowel or solid organ injury, nerve or urinary dysfunction, rectal stump stapleline leak, hernia, and anesthetic risks. She
agrees to proceed. Patient's next of kin/brother, Selvni, updated via phone conversation also.
Subjective Data
Subjective Data
Date of Service: August 05, 2024
Seen in am with PA.
Increased abdominal pain.
Objective Data
-
Vital Signs
Temp Pulse Resp BP Pulse Ox
98.1 F 47 13 95/79 97
08/05/24 03:30 08/05/24 06:00 08/05/24 06:00 08/05/24 06:00 08/05/24 02:00
Intake & Output
08/04/24 08/05/24 08/06/24
06:59 06:59 06:59
Intake Total 120 / 120
Balance 120 / 120
Intake:
Oral fluids 120 / 120
Other:
Number of approximated SMALL 1
amounts of urine
Number of approximated MODERATE 1 1
amounts of urine
Number of unmeasured liquid
stools
Rectum 1
Lab Results
08/05/24 09:17
08/05/24 09:17
Physical Exam
-
General: Mild Distress (anxious)
Chest: Clear
Cardiovascular: Regular Rate & Rhythm
Abdomen: Distended (mild) and Tender (upper abdominal)
Skin: Warm and Dry
Data Reviewed
-
Diagnostic Radiology: Image Reviewed and Report Reviewed
[2024-08-05 12:52] LABS: INR 1.26; PT 15.7 Sec (11.4-14.6)
[2024-08-05 12:53] LABS: Glucose - Point of Care 88 mg/dl (70-99)
[2024-08-05 12:53] LABS: APTT 31.4 Sec (23.4-35.0)
--- NOTE | 2024-08-05 15:07 | CM ---
CM reviewed chart, patient for OR today. CM will continue to be available, will follow for all discharge planning needs.
Plan; [facility] when medically stable, will need insurance auth.
[2024-08-05] MEDS: ZOSYN IV ×2 (15:51→20:04)
--- NOTE | 2024-08-05 16:41 | OR.RPT ---
Operative Report
Operative Report
Date of procedure August 05, 2024
Preoperative diagnosis: Perforated viscus, peritonitis, enlarged uterus with calcified leiomyoma obstructing the view of pelvis
Postoperative diagnosis: Same pending final pathology
Surgeon: Petar Esparza MD
Assist: NENA Adorno
Procedure: Exploratory laparotomy with total abdominal hysterectomy, bilateral salpingo-oophorectomy [id number]
Anesthesia: General ET
Complication: None
Procedure in detail
I was called in the operating room for consultation by Dr. Fausto Lau. This patient has been taken to the operating room on an emergent basis because of finding of pneumoperitoneum and peritonitis today due to concern for perforation of the
colon. She has been hospitalized since July 26. Patient's initial imaging had revealed an enlarged uterus with 10.8 cm peripherally calcified leiomyoma, they were planning to perform a total colectomy, access to the pelvic structures were very
difficult because of the enlarged and malpositioned uterus. I was asked if I could perform total hysterectomy in this patient in order to assist in performing the colonic procedures plan for the patient. I did review the chart briefly, I reviewed
the imaging studies. And then I scrubbed in to evaluate and assist. Upon scrubbing again I extended the incision down to symphysis pubis, the uterus was malrotated enlarged and very calcified and hard approximately in total 16 weeks in size.
There was normal bilateral tubes and ovaries there was generalized inflammation involving pelvis and adhesions involving the anterior cul-de-sac. Given the urgent nature of surgery and the perceived necessity to perform this I went ahead and placed
the Bookwalter retractor and packed the bowel in the upper abdomen after the pelvis was exposed I opened the pelvic sidewalls and identified the ureter. The IP ligaments were identified. A window was created between them after the IP ligaments
were isolated they were sealed 3 times with vessel sealer device and divided. Tubes and ovaries were left attached to the uterus. Bladder flap was sharply developed and advanced below the level of the cervix the cervix appeared to be more deviated
to the left. All the filmy adhesions around the uterus were taken down until the uterus and its blood supply could be better visualized. Once the bladder was below the level of the cervix bilateral uterine vessels were sealed and divided bilateral
parametria were sealed and divided straight Zeppelin clamps were put placed incorporating uterosacral ligaments and distal paracervical tissue these were transected and suture-ligated with 0 Vicryl suture ligature right angle Zeppelin clamps were
placed below the level of the cervix specimen was amputated using Hortencia scissors. 0 Vicryl suture ligature was used to close the vaginal cuff starting from center going to both corners incorporating uterosacral ligaments and coming back to the
center and a second layer. The pelvis was examined and evaluated and there was no evidence of bleeding. I went ahead and sent the specimen including uterus cervix bilateral tubes and ovaries to pathology. I irrigated the pelvis copiously and
again there was excellent hemostasis. The case was handed over back to for completion.
Disposition intubated, under general anesthesia to undergo total colectomy.
--- NOTE | 2024-08-05 17:11 | W.IMMPOSTOP ---
Addendum entered and electronically signed by Fausto Lau MD 08/05/24 17:37:
Patient's next of kin, Selvin, updated via phone conversation.
Addendum entered and electronically signed by Fausto Lau MD 08/05/24 17:36:
Of note, Dr. Esparza performed a MP BSO intraoperatively after being consulted intraoperatively.
Original Note:
Surgical Immed Post Op Note
-
Primary Surgeon: Clotilde Lau MD
Assisting Surgeon: Lore Harding MD; Lore Ochoa ENZYME CHEMIST
Pre-op Diagnosis: 1) pneumoperitoneum 2) mitchell-colitis
Post-op Diagnosis: same
Procedure Performed: total abdominal colectomy with end-ileostomy
Anesthesia Type: general plus local
Specimen / Cultures: 1) abdominal fluid cultures 2) abdominal colon
Estimated Blood Loss: 250 cc
Complications: no immediate
Operative Findings: 1) 2 sites of perforation (cecum and transverse colon) 2) evidence for colitis with ulceration 3) normal small bowel grossly 4) large rock hard uterus limiting access to pelvis 4) serosa of rectum and distal sigmoid with normal
appearance
Odonnell in bladder
Sending back to IMU.
[2024-08-05] MEDS: TORADOL 10 MG IV ×2 (18:30→23:12)
[2024-08-05] MEDS: NORMOSOL-R/PLASMALYTE-A 500 IV (18:39)
[2024-08-05] MEDS: NEO-SYNEPHRINE 250 IV (18:40)
[2024-08-05 19:11] LABS: Hematocrit 36.1 % (37.0-47.0); Mean Corp Hgb Conc. 33.2 g/dL (33.0-37.0); Mean Corpuscular Hgb 29.1 pg (27.0-31.0); Mean Corpuscular Volume 87.6 fL (81.0-99.0); Mean Platelet Volume 9.6 fL (7.4-10.4); Platelet Count 309 10^3/uL (130-400); Red Blood Cell Count 4.12 10^6/uL (4.20-5.40); Red Cell Dist. Width 16.6 % (11.5-14.5); White Blood Cell Count 12.2 10^3/uL (4.8-10.8)
[2024-08-05 19:26] LABS: % Basophils 0.1 % (0-2); % Immature Granulocytes 2.2 % (0-0.5); % Monocytes 2.1 % (1.7-9.3); % Neutrophils 90.6 % (42.2-75.2); Absolute Immature Granulocytes 0.3 10^3/uL (0-0.05); Absolute Lymphocytes 0.6 10^3/uL (1.2-3.4); Absolute Monocytes 0.3 10^3/uL (0.1-0.6); Absolute Neutrophils 11.1 10^3/uL (1.4-6.5); Nucleated Red Blood Cells % 0.2 %
[2024-08-05 19:29] LABS: Blood Urea Nitrogen 14 mg/dl (7-17); Calcium 7.1 mg/dl (8.4-10.2); Carbon Dioxide 20 mmol/L (22-30); Chloride 97 mmol/L (98-107); Estimated Creatinine Clearance 104 ml/min; Glucose 178 mg/dl (70-99); Magnesium 2.2 mg/dl (1.6-2.3); Potassium 4.6 mmol/L (3.5-5.1); Sodium 128 mmol/L (135-145); eGFR > 60.00
[2024-08-05] MEDS: OFIRMEV 100 IV (20:04)
[2024-08-05] MEDS: ZOSYN 50 IV (23:12)
[2024-08-05 23:57] LABS: Glucose - Point of Care 166 mg/dl (70-99)
[2024-08-06] VITALS (25 sets, daily range): BP systolic 80–111; BP diastolic 59–82; BMI 25.1
[2024-08-06] MEDS: SOLU-MEDROL PF 20 MG IV ×2 (01:15→20:07)
[2024-08-06] MEDS: OFIRMEV 100 IV ×3 (01:15→14:47)
--- NOTE | 2024-08-06 02:13 | PTCARENOTE ---
pt received from PACU. pt is AAOx3, drowsy but easily arousable. on 2L NC, 100%. pt asking for pain meds right upon arrival to room. medicated with scheduled pain meds and PRN meds at able. pt sleeping most of shift. HR was ST 100s upon arrival to
floor, settled down 70s later in shift. luna intact draining yellow urine. right iliostomy intact, stoma red, some blood noted. midline dressing intact with moderate serosang drainage noted. left sided JAXSON drain intact, draining serosang fluid,
emptied many times during shift. IV fluids infusing. pt on Ibrahima gtt, 60mcg/min 18ml/hr to keep MAP >65. BP's in 70s-80s systolic but maintained MAP at this time. brother came to visit patient after surgery. call quiñones within reach, care ongoing.
[2024-08-06] MEDS: DILAUDID 0.5 MG IV ×6 (03:17→21:31)
[2024-08-06 04:15] LABS: Blood Urea Nitrogen 17 mg/dl (7-17); Calcium 7.3 mg/dl (8.4-10.2); Carbon Dioxide 22 mmol/L (22-30); Chloride 95 mmol/L (98-107); Estimated Creatinine Clearance 69 ml/min; Glucose 165 mg/dl (70-99); Magnesium 2.2 mg/dl (1.6-2.3); Potassium 4.6 mmol/L (3.5-5.1); Sodium 131 mmol/L (135-145); eGFR > 60.00
[2024-08-06 04:18] LABS: Hematocrit 34.8 % (37.0-47.0); Hemoglobin 11.4 g/dL (12.0-16.0); Mean Corp Hgb Conc. 32.8 g/dL (33.0-37.0); Mean Corpuscular Hgb 28.8 pg (27.0-31.0); Mean Corpuscular Volume 87.9 fL (81.0-99.0); Mean Platelet Volume 9.9 fL (7.4-10.4); Platelet Count 320 10^3/uL (130-400); Red Blood Cell Count 3.96 10^6/uL (4.20-5.40); Red Cell Dist. Width 16.7 % (11.5-14.5); White Blood Cell Count 24.9 10^3/uL (4.8-10.8)
[2024-08-06] MEDS: ZOSYN 50 IV ×4 (05:16→23:09)
[2024-08-06] MEDS: TORADOL 10 MG IV ×4 (05:16→23:09)
[2024-08-06 05:55] LABS: Quantiferon Mitogen minus NIL 0.09 IU/mL; Quantiferon NIL 0.09 IU/mL; Quantiferon TB Gold Plus Indeterminate (Negative)
[2024-08-06 07:35] LABS: Absolute Neutrophils -Man Diff 23.6 10^3/uL (1.4-6.5); Band Neutrophils 17 % (0-3); Segmented Neutrophils 78 % (42-75)
[2024-08-06 07:36] LABS: Lymphocytes 3 % (20-51); Metamyelocytes 1 % (-); Monocytes 1 % (2-9); Normal RBC Morphology No; Platelets Checked Yes; Total Cells Counted 100
[2024-08-06 07:38] LABS: Anisocytosis 1+
[2024-08-06 07:39] LABS: Poikilocytosis 1+
[2024-08-06] MEDS: NORMOSOL-R/PLASMALYTE-A 1000 IV ×2 (08:08→20:07)
[2024-08-06] MEDS: LIDOCAINE 4% PATCH TOPICAL ×2 (08:08→08:31)
[2024-08-06] MEDS: MYCOSTATIN ORAL SUSPENSION 5 ML PO ×4 (08:08→21:27)
[2024-08-06] MEDS: PROTONIX IV 40 MG IV (08:09)
[2024-08-06] MEDS: NSS (PRESERVATIVE FREE) 10 ML IV (08:09)
[2024-08-06] MEDS: OSCAL 500 + D 500 MG PO (08:14)
[2024-08-06] MEDS: ZOLOFT 50 MG PO (08:14)
--- NOTE | 2024-08-06 08:58 | PTOTSP ---
Pt s/p subtotal colectomy and ileostomy on 08/05/24. Will need new OT and PT orders when stable for activity
--- NOTE | 2024-08-06 09:03 | PTOTSP ---
Reviewed chart and noted pt went to OR yesterday for surgical procedures under general anesthesia and needs new orders for PT and OT to resume when stable.
[2024-08-06] MEDS: DILAUDID 0.25 MG IV (09:39)
--- NOTE | 2024-08-06 09:53 | PTCARENOTE ---
While administering pain medication, pt states to this RN 'I'm ready to .' Pt tearful. When questioned further if pt wishes to harm herself she denies wishing to hurt herself; but reports she is feeling this way d/t her abdominal pain.
Shyla notified; advised to place medsitter in room and states he will order psych consult. Call placed requesting medsitter monitor.
--- NOTE | 2024-08-06 10:42 | W.PN.GI.CBS2 ---
Today's Communication / Plan
-
Await path
Decrease solumedrol from 20mg q8 to 20mg BID
Await bowel function and diet per Colorectal surgery
Will discuss biologics and resuming remicade to prevent post-op recurrence down the road after d/c
Assessment / Plan
-
54-year-old female with past medical history of GERD, degenerative disc disease with back injury of L4-L5, psoriasis 'Crohn's and colitis'. Initially diagnosed in [address] Marcos Brower and then followed by Dr. Christian Brandon with her first
colonoscopy at that time. The patient states that she was initially started on steroids and is to call followed by a single dose of Remicade in 2003. With second attack in 2010 treated with steroids and Asacol 2010 per patient. With follow-up in
[address] Roche with colonoscopy and states she was in 'remission' with no need for medication since that time until this June when she required hospitalization at [facility] with treatment with steroids
mesalamine and Remicade initiation on 07/07/2024. She was discharged on steroid taper 60 mg to reduce by 10 mg every 10 days. She did not receive mesalamine due to financial constraints. The patient is homeless. She was staying with a friend but
is unable to do so anymore. She was having 5 bloody bowel movements daily. EMS was called and she was brought to [facility] where we are seeing her now for further recommendations. CTAP with colitis and proctitis. Dr. Kong who did her
flexible sigmoidoscopy on 06/27/2024. He states he was able to advance to 20 cm secondary to angulation and edema. He states there was erythema and serpiginous like ulcers. He states there was also cobblestoning. This appeared Crohn's like in
appearance.

Records from [facility] Admission 06/27/24-07/09/24:
06/27/2024 Labs: WBC 11.4, hemoglobin 10.6, hematocrit 31.2, platelets 393, sodium 129, potassium 4.1, BUN 25, creatinine 1.23, albumin 2.7, total bilirubin 0.5, direct bilirubin 0.2, AST 11, ALT 15, alk phos 99. GI PCR profile: Negative for
all infectious GI pathogens. ESR 79, CRP 86.8, fecal Carlos Alberto Pro 2310.
06/27/2024 flex sig (Dilan): Moderate serpiginous ulcerations with cobblestoning. Consistent with Crohn's colitis. Pathology sigmoid colon. Minimal active colitis with few neutrophils and fibrinous debris. Melanosis coli. Absence of identified
granulomata or crypt abscesses. Rectum biopsy rare neutrophil with increased chronic inflammation and crypt distortion. Melanosis coli. Absence of identified granulomata or crypt abscesses.
06/30/2024 CT abdomen and pelvis: Segmental narrowing in mid descending colon with fluid distention of a send in colon and gaseous distention of transverse and proximal descending colon. Worrisome for constricting lesion. Recommend colonoscopy.
Large pelvic mass with peripheral rim calcification. Indeterminate for uterine and adnexal origin. Atrophic right kidney.
07/03/2024 MRI pelvis: No pelvic mass seen on CT scan that corresponds to an 11 centimeter subserosal nonenhancing fibroid arising from right lateral body of uterus. Patient seen by [facility] at [facility].
Labs 07/03/2024 : Hepatitis C antibody negative, hepatitis B surface antigen negative, hepatitis A antibody total negative, QuantiFERON gold negative. Hemoglobin 8.9.
Remicade infusion 07/07/2024
07/09/2024 hemoglobin 8.1, discharged to home with prednisone oral taper 60 mg daily to taper by 10 mg every 10 days. Mesalamine (patient was unable to obtain), this was never initiated in the hospital. Patient was to follow up with Dr. Roche on
07/31/24.

07/31/24 CT with IV and oral
Lack of oral contrast opacification of large bowel with markedly distended large bowel through to the proximal sigmoid colon with air and fluid, smooth elongated tapering to normal caliber mid to distal sigmoid with sigmoid and rectal liquid stool,
findings possibly representing ileus associated with patient's known IBD. No free air.
New tiny left pleural effusion and accompanying bilateral lower lobe subsegmental atelectasis.
Atrophic right kidney again noted.
Large uterine lesion again seen likely representing degenerated leiomyoma.
Mildly distended gallbladder again suspected. No findings to suggest biliary tract dilatation.
08/04/24 Abd XR:
IMPRESSION:
There is new bowel wall thickening with some thumbprinting in the mid descending colon such as may be seen with inflammatory bowel disease or ischemia.
The bowel gas pattern is otherwise not significantly changed with differential diagnosis including ileus and Hambleton's syndrome
08/05/24 OBS- Moderate pneumoperitoneum.
Impression
- s/p subtotal colectomy, ileostomy, hysterectomy for colonic perforation (cecum, transverse)
Indeterminant IBD suspect crohn's diagnosed 2003, Initiated on Remicade 07/07/24
-elevated CRP
- Anemia
- Homelessness
-hypoalbuminemia
-increased alk phos
Subjective
Subjective
Date of Service: August 06, 2024
c/o abd pain. Some gas in ileostomy bag
Objective
Data Reviewed
Laboratory Data:
Laboratory Results
08/06/24 03:32
08/06/24 03:32
Laboratory Results
PT 15.7 Sec (11.4-14.6) H 08/05/24 12:23
INR 1.26 08/05/24 12:23
APTT 31.4 Sec (23.4-35.0) 08/05/24 12:23
Magnesium 2.2 mg/dl (1.6-2.3) 08/06/24 03:32
Total Bilirubin 0.3 mg/dl (0.2-1.3) 08/05/24 09:17
AST 12 U/L (14-36) L 08/05/24 09:17
ALT 18 U/L (0-35) 08/05/24 09:17
Alkaline Phosphatase 308 U/L (38-126) H 08/05/24 09:17
Lipase 33 U/L (23-300) 07/25/24 20:26
Vital Signs and I&O:
Vital Signs
Temp Pulse Resp BP Pulse Ox
98.2 F 71 15 106/74 100
08/06/24 03:29 08/06/24 10:00 08/06/24 10:00 08/06/24 10:00 08/05/24 20:00
I&O
08/05/24 08/06/24 08/07/24
06:59 06:59 06:59
Intake Total 120 / 120
Output Total 470 / 470
Balance 120 / 120 -470 / -470
Physical Exam
Physical Exam
GI: Soft, Tender and Other (RLQ ileostomy bag)
[2024-08-06] MEDS: SOLU-MEDROL PF IV (11:52)
--- NOTE | 2024-08-06 12:29 | W.PN.CRS1 ---
Today's Communication / Plan
-
TPN
rapid steroid wean
lovenox
Assessment/Plan
-
POD#1 total abdominal colectomy with end-ileostomy
-Given lack of NPO over past two weeks, will start TPN
-Remain NPO. Continue IVFs.
-Start Lovenox for DVT prophylaxis, TEDS/SCDS in place
-Rapid steroid wean - discussed GI and hospitalist
-OOB as tolerated
-Pain control: Dilaudid IV PRN, Toradol/Tylenol standing
-OR pathology pending
-Odonnell to remain until POD#2
-Continue IV Zosyn
-Continue JAXSON drain until prior to d/c
Subjective Data
Subjective Data
Date of Service: August 06, 2024
Objective Data
-
Vital Signs
Temp Pulse Resp BP Pulse Ox
98.0 F 73 15 105/69 97
08/06/24 07:45 08/06/24 12:00 08/06/24 12:00 08/06/24 12:00 08/06/24 08:13
Intake & Output
08/05/24 08/06/24 08/07/24
06:59 06:59 06:59
Intake Total 120 / 120
Output Total 470 / 470
Balance 120 / 120 -470 / -470
Intake:
Oral fluids 120 / 120
Output:
Drain Output (Total) 470 / 470
Left Lower Abdomen Kennedy- 470 / 470
[place]
Other:
Number of approximated SMALL 1
amounts of urine
Number of approximated MODERATE 1 1
amounts of urine
Number of unmeasured liquid
stools
Rectum 2
Lab Results
08/06/24 03:32
08/06/24 03:32
Physical Exam
-
General: No Acute Distress and AOx3
Abdomen: Soft, Non Distended and Tender (diffuse, near incision)
Skin: Warm and Dry
Wound: Dressing in Place and Other (ileostomy warm and pink)
--- NOTE | 2024-08-06 13:23 | WOUNDNOTE ---
[facility] RN note: Patient s/p Total colectomy with end ileostomy yesterday by Dr. Lau. Stoma on R abdomen is pink with some loose dark brown stool in pouch. No pouch leakage. Ileostomy teaching folder and ostomy supplies left in room ([place] wafer
# [id number], Flora seals and [place] pouch #[id number]). Patient stated she is too uncomfortable to have any ostomy teaching today. Patient gave verbal permission to order a Dwllr ostomy secure starter kit and permission to call her sister in law for
future ostomy teaching. Patient stated she lives by herself.
[2024-08-06 13:32] LABS: Glucose - Point of Care 137 mg/dl (70-99)
[2024-08-06] MEDS: NEO-SYNEPHRINE 250 IV (14:06)
--- NOTE | 2024-08-06 14:25 | WOUNDNOTE ---
[facility] RN Note: t/c Spoke with ABEL Torres who stated the [place] secure ostomy secure kit can be delivered to her home since patient is in between residents. Kylie to call when she will be visiting patient for possible ostomy teaching. She
lives a hour or so away. t/C Spoke with Briana from [employer] and ordered an ostomy secure starter kit.
--- NOTE | 2024-08-06 15:41 | W.PN.GYNONC ---
Today's Communication
-
n/a
Impression / Plan
-
POD 1 exploratory laparotomy,total abdominal colectomy with end ileostomy and total abdominal hysterectomy with BSO.
questions answered
path still pending
nothing to add to colorectal and GI plan.
Subjective / Interval History
-
POD 1 She has has several questions on what we did and why. Explained the procedure of total abdominal hysterectomy and BSO and the reason for removal of the uterus and ovaries. She had several questions about her vagina and if we also took that
and if it would impact intercourse and explained the vagina is still the same length and should not impact sexual function.
Objective Data
-
Lab Results:
08/06/24 03:32
08/06/24 03:32
Physical Exam
Vital Signs / I&O
Vitals
Temp Pulse Resp BP Pulse Ox
98.0 F 66 13 111/73 98
08/06/24 07:45 08/06/24 15:00 08/06/24 15:00 08/06/24 15:00 08/06/24 15:34
I&O
08/04/24 08/05/24 08/06/24 08/07/24
06:59 06:59 06:59 06:59
Intake Total 120 / 120
Output Total 470 / 470 170 / 170
Balance 120 / 120 -470 / -470 -170 / -170
Data Reviewed
-
Lab Data: Discussed with Physician
--- NOTE | 2024-08-06 16:17 | PTCARENOTE ---
Assumed care for patient during the day. Received report via RN. Pt weaned to room air 98%. Pt normal sinus on tele. Pt complains of 10/10 pain. Dilaudid administered, pt describes pain as 9/10 with intermittent sharp pain with constant soreness.
Dressing from OR remains, small drainage noted. ileostomy stoma is pink and budded, small dark brown output. JAXSON drain with moderate amounts of serosanguineous drainage see intake/output. IV fluids infusing. Pt on Ibrahima gtt at 20mcg/min and 6.7ml/hr to
keep MAP >65. BP's 90's systolic to 60-70 diastolic. Maintaining MAP >65. Pt has call quiñones within reach and rings appropriately.
[2024-08-06] MEDS: LOVENOX 40 MG SC (17:28)
[2024-08-06 18:05] LABS: Glucose - Point of Care 103 mg/dl (70-99)
[2024-08-06] MEDS: NOVOLOG FLEXPEN-LOW RESISTANCE SC ×2 (19:08→23:14)
--- NOTE | 2024-08-06 19:27 | W.PN.HOSP.TC ---
Today's Communication/Plan
-
Antibiotics, DVT Prophylaxis, TPN
Assessment / Plan
Assessment / Plan
Physical Exam
General: Not in acute distress
HEENT: Normocephalic, Atraumatic, Moist Mucous Membranes and Thrush (moderate, on Nystatin)
Respiratory: Clear to Auscultation
Cardiac: Regular Rhythm and S1/S2
GI: Soft, mild distension, generalized tenderness
Musculoskeletal: No Cyanosis
Neuro: Awake, Alert and Oriented
Assessment/Plan
Patient with history of inflammatory bowel disease (Crohn's and ulcerative colitis), psoriasis who presented to the emergency department with persistent abdominal pain diarrhea and nausea status post admission for exacerbation in June 2024 at
[facility]. She was discharged on a prednisone taper, mesalamine and given a dose of Remicade prior to discharge. Patient was unable to fill the mesalamine but has continued on the prednisone taper pending follow-up with
field staff. She is however having persistent to worsening symptoms and unable to wait for the appointment with field staff. Labs remarkable for anemia with hemoglobin of 8.1 (on admission)-->8.7-->8.9-->7.8-->8.8-->8.6-->7.6-unit
blood transfused-->8.9
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
#GI -abdominal pain, frequent bloody and loose stools, tenderness, consistent with active inflammatory bowel disease.
#Pneumoperitoneum (suspected perforated colon) on 08/05/24 status post total abdominal colectomy with end-ileostomy on 08/05/24
[address] scan showed colitis 07/26/24, and as per radiologist's report: Diffuse colonic and rectal wall thickening with some stranding in the adjacent fat consistent with diffuse colitis and likely secondary to known ulcerative colitis.
10.8 x 8.4 cm peripherally calcified lesion within the uterus, likely large, partially calcified fibroid.
Atrophic right kidney.
Multilevel degenerative changes of the thoracolumbar spine with grade 1 anterolisthesis of L5 on S1 and bilateral pars defects.
It appears that she was started on induction therapy to achieve remission but patient is not quite responding to the steroids, immunomodulators. Based on the treatment approach suggestion that she has more of an ulcerative colitis picture
'patient has also been diagnosed with Crohn's and has psoriasis
Still had abdominal pain, input of CRS appreciated, pt moved to IMU 08/01
CT scan 07/31/24, and as per radiologist's report: Lack of oral contrast opacification of large bowel with markedly distended large bowel through to the proximal sigmoid colon with air and fluid, smooth elongated tapering to normal caliber mid to
distal sigmoid with sigmoid and rectal liquid stool, findings possibly representing ileus associated with patient's known IBD. No free air.
New tiny left pleural effusion and accompanying bilateral lower lobe subsegmental atelectasis.
Atrophic right kidney again noted.
Large uterine lesion again seen likely representing degenerated leiomyoma.
Mildly distended gallbladder again suspected. No findings to suggest biliary tract dilatation.
Hyponatremia Na 134 most likely associated with diarrhea
Acute blood loss anemia with baseline chronic iron deficiency anemia
- Clear Liquids Diet advanced to Full Liquids diet 07/27, advanced to Low residue 07/28, but with abdominal pain intensity, pt diet changed back to clear liquids, as per CRS, made NPO 08/01, diet now (08/03) advanced to full liquids, then NPO for
surgery on 08/05/24
- IV steroids changed to Prednisone 60 mg daily. As per GI was changed back to IV steroids -- on 08/06/24 decreased to 20 mg BID (from 20 mg Q8H), as per nursing
- GI working on getting patient Remicade/Infliximab
- TPN as per colorectal surgery
- Continue Zosyn
- Per report, patient is homeless (states she is between homes, details unclear)
Hypotension - RESOLVED
#Anemia - ACD vs Iron def Anemia given intermittently bloody stools for week
- Iron studies: Ferritin 239, Fe sat unmeasurable
IV Fe started
- LDH normal. folate is normal. vitamin b12 is high.
- Transfuse if hgb < 7
- Dr. Shyla Doss Texted on-call dredge operator supervisor Dr. Bray on July 26, 2024 morning, to confirm whether someone with inflammatory bowel disease on immunosuppressive medications needs CMV negative, and irradiated blood (in addition to
leukoreduced), but she mentioned that there is no need for CMV negative and irradiated blood but rather in this case can give regular leukoreduced PRBCs. I appreciate Dr. Bray's assistance.
- 1 unit of PRBC transfused on 07/26/24, 2nd unit 08/02
Once acute GI issues have settled, Pt concerned about weakness and believes she should go to a rehab facility prior to going home
await CM and insurance prior auth. PT/OT input recommending SNF appreciated
#Large degenerating fibroid encompassing a good portion of her pelvis based on the CT scan status post MP BSO intraoperatively on 08/05/24
-Follow-up with urogynecology outpatient (colorectal surgery discussed this with Dr. Dickson of outpatient urogynecology)
DVT Prophylaxis: Lovenox and Knee-High TEDs and SCDs.
Code Status: Full Code
Anticipated Discharge: > 48 hours
Subjective/Interval History
-
Date of Service: August 06, 2024
Patient was seen and examined. She reported continued abdominal pain.
Objective Data
-
Vital Signs:
Vital Signs
Temp Pulse Resp BP Pulse Ox
97.9 F 74 15 91/76 98
08/06/24 15:35 08/06/24 17:00 08/06/24 17:00 08/06/24 17:00 08/06/24 15:34
I&O
08/05/24 08/06/24 08/07/24
06:59 06:59 06:59
Intake Total 120 / 120
Output Total 470 / 470 600 / 600
Balance 120 / 120 -470 / -470 -600 / -600
--- NOTE | 2024-08-06 19:36 | VATNOTE ---
RT. ISABELLE PICC placed today, tip retracted 2.5cm's per Radiology, to place tip SVC, per protocol. database modeler aware.
[2024-08-06] MEDS: Parenteral Nutrition, Central 910 IV (21:27)
[2024-08-06 23:22] LABS: Glucose - Point of Care 110 mg/dl (70-99)
[2024-08-07] VITALS (35 sets, daily range): BP systolic 81–136; BP diastolic 58–96; BMI 24.1
[2024-08-07] MEDS: DILAUDID 0.5 MG IV ×3 (01:12→07:32)
[2024-08-07] MEDS: TORADOL 10 MG IV (05:09)
[2024-08-07] MEDS: ZOSYN 50 IV ×4 (05:10→23:36)
[2024-08-07] MEDS: NOVOLOG FLEXPEN-LOW RESISTANCE SC ×4 (05:14→23:37)
[2024-08-07 05:24] LABS: Glucose - Point of Care 124 mg/dl (70-99)
--- NOTE | 2024-08-07 05:24 | PTCARENOTE ---
MAP has been above 65 all night, yue gtt turned off. pt reports pain 8-9/10, medicated with pain medication per MAR. luna to be pulled. iliostomy emptied for 150ml, JAXSON drain with large output over night. care ongoing.
--- NOTE | 2024-08-07 06:19 | PTCARENOTE ---
luna removed per order.
[2024-08-07 06:43] LABS: % Basophils 0.2 % (0-2); % Immature Granulocytes 1.7 % (0-0.5); % Monocytes 2.1 % (1.7-9.3); Absolute Immature Granulocytes 0.2 10^3/uL (0-0.05); Absolute Lymphocytes 0.8 10^3/uL (1.2-3.4); Absolute Monocytes 0.3 10^3/uL (0.1-0.6); Absolute Neutrophils 12.4 10^3/uL (1.4-6.5); Hematocrit 20.4 % (37.0-47.0); Hemoglobin 6.8 g/dL (12.0-16.0); Mean Corp Hgb Conc. 33.3 g/dL (33.0-37.0); Mean Corpuscular Volume 89.9 fL (81.0-99.0); Mean Platelet Volume 9.6 fL (7.4-10.4); Nucleated Red Blood Cells % 0 %; Platelet Count 216 10^3/uL (130-400); Red Blood Cell Count 2.27 10^6/uL (4.20-5.40); Red Cell Dist. Width 16.2 % (11.5-14.5); White Blood Cell Count 13.8 10^3/uL (4.8-10.8)
[2024-08-07 07:13] LABS: ALT (SGPT) 15 U/L (0-35); AST (SGOT) 13 U/L (14-36); Albumin 1.4 g/dl (3.5-5.0); Alkaline Phosphatase 129 U/L (38-126); Blood Urea Nitrogen 16 mg/dl (7-17); Calcium 7.3 mg/dl (8.4-10.2); Carbon Dioxide 29 mmol/L (22-30); Chloride 98 mmol/L (98-107); Estimated Creatinine Clearance 78 ml/min; Glucose 103 mg/dl (70-99); Magnesium 2.3 mg/dl (1.6-2.3); Phosphorus 3.3 mg/dl (2.5-4.5); Potassium 4.1 mmol/L (3.5-5.1); Sodium 130 mmol/L (135-145); Total Bilirubin 0.2 mg/dl (0.2-1.3); eGFR > 60.00
--- NOTE | 2024-08-07 07:15 | PTCARENOTE ---
low h/h- this AM, notified DISPATCHER MAINTENANCE, orders for 1 unit of PRBC's. relayed to day shift RN.
[2024-08-07] MEDS: TRANEXAMIC ACID 110 MG IV (07:55)
[2024-08-07] MEDS: LR 1000 IV ×3 (08:26→21:47)
[2024-08-07] MEDS: MYCOSTATIN ORAL SUSPENSION 5 ML PO ×3 (09:02→17:54)
[2024-08-07] MEDS: OSCAL 500 + D 500 MG PO (09:02)
[2024-08-07] MEDS: SOLU-MEDROL PF 20 MG IV (09:02)
[2024-08-07] MEDS: ZOLOFT 50 MG PO (09:02)
[2024-08-07] MEDS: LIDOCAINE 4% PATCH TOPICAL (09:03)
[2024-08-07] MEDS: PROTONIX IV 40 MG IV (09:03)
[2024-08-07] MEDS: NSS (PRESERVATIVE FREE) 10 ML IV (09:03)
--- NOTE | 2024-08-07 09:38 | PTOTSP ---
Received new order for PT this AM. Reviewed chart and s/w RN. Pt's hgb 6.8 and currently receiving blood transfusion and will have a second transfusion following this one. Will hold PT at this time and follow up tomorrow if stable. Pt also needs new
OT order.
--- NOTE | 2024-08-07 10:18 | W.PN.CRS1 ---
Today's Communication / Plan
-
Increase Dilaudid
2 units packed red blood cells
Tranexamic acid
Hold Lovenox and Toradol
Clear liquids
Assessment/Plan
-
Hypotensive this morning 80s over 50s. Afebrile.
Hemoglobin 6.8 from 11.4.
POD# 2 total abdominal colectomy with end-ileostomy
-Advance to clears with Ensure. Continue TPN until solid food.
-Restart IV fluids given hypotension. 500 mL bolus x 1.
-Stop Lovenox given anemia. TEDS/SCDS in place
-Anemia likely due to acute blood loss anemia from surgery mixed with dilutional anemia. 2 units of packed red blood cells. Tranexamic acid 1 g. Hold Lovenox and Toradol.
-Rapid steroid wean - discussed GI and hospitalist
-OOB as tolerated. Physical therapy reordered.
-Pain control: Dilaudid IV PRN increased, Tylenol 650 mg every 6 hours. Will start oxycodone once tolerating p.o.
-OR pathology pending
-Odonnell discontinued, await void
-Continue IV Zosyn
-Continue JAXSON drain until prior to d/c
Subjective Data
Procedure
08/05/24- total abdominal colectomy with end-ileostomy
Subjective Data
Date of Service: August 07, 2024
Patient states she is in a lot of pain. She does feel hungry. She has no nausea or vomiting. Her colostomy is functioning.
Objective Data
-
Vital Signs
Temp Pulse Resp BP Pulse Ox
97.7 F 68 14 115/77 95
08/07/24 09:10 08/07/24 09:10 08/07/24 09:10 08/07/24 09:10 08/07/24 08:49
Intake & Output
08/06/24 08/07/2408/08/24
06:59 06:59 06:59
Intake Total 0 / 0
Output Total 470 / 470 1420 / 1420 370 / 370
Balance -470 / -470 -1420 / -1420 -370 / -370
Intake:
Blood Product Amount Infused ( 0 / 0
mL)
Packed Rbc Leukoreduced Unit 0 / 0
[id number]
Output:
Liquid stool amount 160 / 160
Ileostomy 160 / 160
Drain Output (Total) 470 / 470 610 / 610 70 / 70
Left Lower Abdomen Kennedy- 470 / 470 610 / 610 70 / 70
[place]
Urine, Odonnell 650 / 650
Urine, Voided 300 / 300
Other:
Number of approximated MODERATE 1
amounts of urine
Number of unmeasured liquid
stools
Rectum 2
Lab Results
08/07/24 06:09
08/07/24 06:09
Physical Exam
-
General: No Acute Distress and AOx3
Abdomen: Soft, Tender (Around incision) and Other (Ileostomy warm and pink with function)
Skin: Warm and Dry
Incision: Clear, Dry, Intact
--- NOTE | 2024-08-07 10:21 | W.PN.GI.CBS2 ---
Today's Communication / Plan
-
Await path
Post op care per Colorectal Surgery
Pain control
She needs to follow up with outpt GI Dr Roche to discuss resuming biologics to prevent post-op recurrence after d/c
GI will sign off at this time. Please call back if needed
Assessment / Plan
-
54-year-old female with past medical history of GERD, degenerative disc disease with back injury of L4-L5, psoriasis 'Crohn's and colitis'. Initially diagnosed in [address] Marcos Brower and then followed by Dr. Christian Brandon with her first
colonoscopy at that time. The patient states that she was initially started on steroids and is to call followed by a single dose of Remicade in 2003. With second attack in 2010 treated with steroids and Asacol 2010 per patient. With follow-up in
[address] Roche with colonoscopy and states she was in 'remission' with no need for medication since that time until this June when she required hospitalization at [facility] with treatment with steroids
mesalamine and Remicade initiation on 07/07/2024. She was discharged on steroid taper 60 mg to reduce by 10 mg every 10 days. She did not receive mesalamine due to financial constraints. The patient is homeless. She was staying with a friend but
is unable to do so anymore. She was having 5 bloody bowel movements daily. EMS was called and she was brought to [facility] where we are seeing her now for further recommendations. CTAP with colitis and proctitis. Dr. Kong who did her
flexible sigmoidoscopy on 06/27/2024. He states he was able to advance to 20 cm secondary to angulation and edema. He states there was erythema and serpiginous like ulcers. He states there was also cobblestoning. This appeared Crohn's like in
appearance.

Records from [facility] Admission 06/27/24-07/09/24:
06/27/2024 Labs: WBC 11.4, hemoglobin 10.6, hematocrit 31.2, platelets 393, sodium 129, potassium 4.1, BUN 25, creatinine 1.23, albumin 2.7, total bilirubin 0.5, direct bilirubin 0.2, AST 11, ALT 15, alk phos 99. GI PCR profile: Negative for
all infectious GI pathogens. ESR 79, CRP 86.8, fecal Carlos Alberto Pro 2310.
06/27/2024 flex sig (Dilan): Moderate serpiginous ulcerations with cobblestoning. Consistent with Crohn's colitis. Pathology sigmoid colon. Minimal active colitis with few neutrophils and fibrinous debris. Melanosis coli. Absence of identified
granulomata or crypt abscesses. Rectum biopsy rare neutrophil with increased chronic inflammation and crypt distortion. Melanosis coli. Absence of identified granulomata or crypt abscesses.
06/30/2024 CT abdomen and pelvis: Segmental narrowing in mid descending colon with fluid distention of a send in colon and gaseous distention of transverse and proximal descending colon. Worrisome for constricting lesion. Recommend colonoscopy.
Large pelvic mass with peripheral rim calcification. Indeterminate for uterine and adnexal origin. Atrophic right kidney.
07/03/2024 MRI pelvis: No pelvic mass seen on CT scan that corresponds to an 11 centimeter subserosal nonenhancing fibroid arising from right lateral body of uterus. Patient seen by Helpdesk Administrator Onc at [facility].
Labs 07/03/2024 : Hepatitis C antibody negative, hepatitis B surface antigen negative, hepatitis A antibody total negative, QuantiFERON gold negative. Hemoglobin 8.9.
Remicade infusion 07/07/2024
07/09/2024 hemoglobin 8.1, discharged to home with prednisone oral taper 60 mg daily to taper by 10 mg every 10 days. Mesalamine (patient was unable to obtain), this was never initiated in the hospital. Patient was to follow up with Dr. Roche on
07/31/24.

07/31/24 CT with IV and oral
Lack of oral contrast opacification of large bowel with markedly distended large bowel through to the proximal sigmoid colon with air and fluid, smooth elongated tapering to normal caliber mid to distal sigmoid with sigmoid and rectal liquid stool,
findings possibly representing ileus associated with patient's known IBD. No free air.
New tiny left pleural effusion and accompanying bilateral lower lobe subsegmental atelectasis.
Atrophic right kidney again noted.
Large uterine lesion again seen likely representing degenerated leiomyoma.
Mildly distended gallbladder again suspected. No findings to suggest biliary tract dilatation.
08/04/24 Abd XR:
IMPRESSION:
There is new bowel wall thickening with some thumbprinting in the mid descending colon such as may be seen with inflammatory bowel disease or ischemia.
The bowel gas pattern is otherwise not significantly changed with differential diagnosis including ileus and Gasburg's syndrome
08/05/24 OBS- Moderate pneumoperitoneum.
Impression
- s/p subtotal colectomy, ileostomy, hysterectomy for colonic perforation (cecum, transverse)
Indeterminant IBD suspect crohn's diagnosed 2003, Initiated on Remicade 07/07/24
-elevated CRP
- Anemia
- Homelessness
-hypoalbuminemia
-increased alk phos
Subjective
Subjective
Date of Service: August 07, 2024
Pt calling out in pain, asking for pain meds.
Objective
Data Reviewed
Laboratory Data:
Laboratory Results
08/07/24 06:09
08/07/24 06:09
Laboratory Results
PT 15.7 Sec (11.4-14.6) H 08/05/24 12:23
INR 1.26 08/05/24 12:23
APTT 31.4 Sec (23.4-35.0) 08/05/24 12:23
Phosphorus 3.3 mg/dl (2.5-4.5) 08/07/24 06:09
Magnesium 2.3 mg/dl (1.6-2.3) 08/07/24 06:09
Total Bilirubin 0.2 mg/dl (0.2-1.3) 08/07/24 06:09
AST 13 U/L (14-36) L 08/07/24 06:09
ALT 15 U/L (0-35) 08/07/24 06:09
Alkaline Phosphatase 129 U/L (38-126) H 08/07/24 06:09
Lipase 33 U/L (23-300) 07/25/24 20:26
Vital Signs and I&O:
Vital Signs
Temp Pulse Resp BP Pulse Ox
97.7 F 68 14 115/77 95
08/07/24 09:10 08/07/24 09:10 08/07/24 09:10 08/07/24 09:10 08/07/24 08:49
I&O
08/06/24 08/07/24 08/08/24
06:59 06:59 06:59
Intake Total 0 / 0
Output Total 470 / 470 1420 / 1420 370 / 370
Balance -470 / -470 -1420 / -1420 -370 / -370
Physical Exam
Physical Exam
GI: Soft and Tender (RLQ ileostomy with green/brown stool)
[2024-08-07] MEDS: DILAUDID 1 MG IV ×5 (10:33→23:37)
[2024-08-07 11:08] LABS: Triglycerides 159 mg/dl (10-149)
--- NOTE | 2024-08-07 11:54 | WOUNDNOTE ---
[facility] RN NOTE: Patient visited for midline dressing removal and ostomy change. Midline with robert intact and minimal drainage and erythema. Stoma light pink, slightly budded, minimal drainage. Ostomy changed with barrier # 02636 and pouch # [id number]. The
2 1/4 barrier and pouch ordered from [facility] and can also be used for pouch changes due to stoma size ([place] barrier 81740 and pouch #[id number]). Patient clearly stated at beginning of care that she would not look at or be involved in ostomy care today.
Patient said she will consider looking at stoma at next pouch changed. She continued to say 'I'm just very disappointed.' Emotional support provided throughout care. Patient declined assessment of sacrum and heels today. RN Saira given updated. Will
continue to follow for ostomy care and teaching.
[2024-08-07 12:45] LABS: Glucose - Point of Care 119 mg/dl (70-99)
--- NOTE | 2024-08-07 12:57 | W.PN.HOSP.TC ---
Today's Communication/Plan
-
2 units PRBC transfused in past 24 hours
Recheck Hgb
Continue steroids
IV fluids for hypotension
Clears
Continue TEDS/SCDS for DVT Prophylaxis
Assessment / Plan
Assessment / Plan
Physical Exam
General: Not in acute distress
HEENT: Normocephalic, Atraumatic, Moist Mucous Membranes and Thrush (moderate, on Nystatin)
Respiratory: Clear to Auscultation
Cardiac: Regular Rhythm and S1/S2
GI: Soft, mild distension, generalized tenderness
Musculoskeletal: No Cyanosis
Neuro: Awake, Alert and Oriented
Assessment/Plan
Patient with history of inflammatory bowel disease (Crohn's and ulcerative colitis), psoriasis who presented to the emergency department with persistent abdominal pain diarrhea and nausea status post admission for exacerbation in June 2024 at
[facility]. She was discharged on a prednisone taper, mesalamine and given a dose of Remicade prior to discharge. Patient was unable to fill the mesalamine but has continued on the prednisone taper pending follow-up with
medical affairs manager. She is however having persistent to worsening symptoms and unable to wait for the appointment with medical affairs manager. Labs remarkable for anemia with hemoglobin of 8.1 (on admission)-->8.7-->8.9-->7.8-->8.8-->8.6-->7.6-unit
blood transfused-->8.9
#Presentation with progressive lower abdominal pain and worsening bloody diarrhea for the past few weeks SUPPLY CATALOGUER
#GI -abdominal pain, frequent bloody and loose stools, tenderness, consistent with active inflammatory bowel disease.
#Pneumoperitoneum (suspected perforated colon) on 08/05/24 status post total abdominal colectomy with end-ileostomy on 08/05/[address] scan showed colitis 07/26/24, and as per radiologist's report: Diffuse colonic and rectal wall thickening with some stranding in the adjacent fat consistent with diffuse colitis and likely secondary to known ulcerative colitis.
10.8 x 8.4 cm peripherally calcified lesion within the uterus, likely large, partially calcified fibroid.
Atrophic right kidney.
Multilevel degenerative changes of the thoracolumbar spine with grade 1 anterolisthesis of L5 on S1 and bilateral pars defects.
It appears that she was started on induction therapy to achieve remission but patient is not quite responding to the steroids, immunomodulators. Based on the treatment approach suggestion that she has more of an ulcerative colitis picture
'patient has also been diagnosed with Crohn's and has psoriasis
Still had abdominal pain, input of CRS appreciated, pt moved to IMU 08/01
CT scan 07/31/24, and as per radiologist's report: Lack of oral contrast opacification of large bowel with markedly distended large bowel through to the proximal sigmoid colon with air and fluid, smooth elongated tapering to normal caliber mid to
distal sigmoid with sigmoid and rectal liquid stool, findings possibly representing ileus associated with patient's known IBD. No free air.
New tiny left pleural effusion and accompanying bilateral lower lobe subsegmental atelectasis.
Atrophic right kidney again noted.
Large uterine lesion again seen likely representing degenerated leiomyoma.
Mildly distended gallbladder again suspected. No findings to suggest biliary tract dilatation.
Hyponatremia Na 134 most likely associated with diarrhea
Acute blood loss anemia with baseline chronic iron deficiency anemia
- Clear Liquids Diet
- IV steroids changed to Prednisone 60 mg daily. As per GI was changed back to IV steroids -- on 08/06/24 decreased to 20 mg BID (from 20 mg Q8H) --> rapid steroid wean
- GI working on getting patient Remicade/Infliximab
- TPN as per colorectal surgery
- Continue Zosyn
- Pain regimen intensified on 08/07/24 to include increase in PRN Dilaudid, scheduled Tylenol and scheduled Oxycodone (discussed this with on-call psychiatry who recommended scheduled pain medication and to hold for sedation)
- Per report, patient is homeless (states she is between homes, details unclear)
#Hypotension
-Possibly from blood loss
-Additional PRBC transfused on 08/07/24 with Hgb<7
-Tranexamic acid 1 g on 08/07/24
-Restart IV fluids as per colorectal surgery
#Anemia - ACD vs Iron def Anemia given intermittently bloody stools for week
- Iron studies: Ferritin 239, Fe sat unmeasurable
IV Fe started
- LDH normal. folate is normal. vitamin b12 is high.
- Transfuse if hgb < 7
- Dr. Shyla Doss Texted on-call business consultant Dr. Bray on July 26, 2024 morning, to confirm whether someone with inflammatory bowel disease on immunosuppressive medications needs CMV negative, and irradiated blood (in addition to
leukoreduced), but she mentioned that there is no need for CMV negative and irradiated blood but rather in this case can give regular leukoreduced PRBCs. I appreciate Dr. Bray's assistance.
- 1 unit of PRBC transfused on 07/26/24, 2nd unit 08/02, 3rd and 4th units on 08/07/24
Once acute GI issues have settled, Pt concerned about weakness and believes she should go to a rehab facility prior to going home
await CM and insurance prior auth. PT/OT input recommending SNF appreciated
#Large degenerating fibroid encompassing a good portion of her pelvis based on the CT scan status post MP BSO intraoperatively on 08/05/24
-Follow-up with urogynecology outpatient (colorectal surgery discussed this with Dr. Dickson of outpatient urogynecology)
DVT Prophylaxis: Knee-High TEDs and SCDs. HOLDING LOVENOX DUE TO ACUTE ANEMIA WITH HGB<7.
Code Status: Full Code
Anticipated Discharge: > 48 hours
Subjective/Interval History
-
Date of Service: August 07, 2024
Patient was seen and examined. She reported continued abdominal pain and would like a stronger pain regimen.
Objective Data
-
Labs:
Laboratory Results
08/07/24 08/07/24
04:42 06:09
WBC Cancelled 13.8 H
Hgb Cancelled 6.8 L* D
Hct Cancelled 20.4 L*
Plt Count Cancelled 216 D
Sodium Cancelled 130 L
Potassium Cancelled 4.1
Chloride Cancelled 98
Carbon Dioxide Cancelled 29
BUN Cancelled 16
Creatinine Cancelled 0.8
Glucose Cancelled 103 H
Calcium Cancelled 7.3 L
Total Bilirubin Cancelled 0.2
AST Cancelled 13 L
ALT Cancelled 15
Alkaline Phosphatase Cancelled 129 H
Vital Signs:
Vital Signs
Temp Pulse Resp BP Pulse Ox
98.0 F 68 12 107/82 94
08/07/24 12:33 08/07/24 12:33 08/07/24 12:33 08/07/24 12:33 08/07/24 12:33
I&O
08/06/24 08/07/24 08/08/24
06:59 06:59 06:59
Intake Total 250 / 250
Output Total 470 / 470 1420 / 1420 460 / 460
Balance -470 / -470 -1420 / -1420 -210 / -210
--- NOTE | 2024-08-07 13:01 | CON.MD ---
Consultation - Medical
-
patient seen chart reviewed. discussed w nursing and with dr cr. the patient is a 54 year old woman w hx of colitis who came to er w complaint of severe abdominal pain diarrhea weakess lightheadedness fever and nausea. she has prior to
this admit been at [facility] for similar sx. had been in remission from colitis since end of summer but sx recurred. patient required surgery for perforation and she now has an ileostomy. she also had removal of uterus and bso (patient had large
uterine fibroid ). she is in a lot of pain and made a comment about wanting to be hence this consult. the patient was very angry when seen and did not want to talk to me. she said she was in a lot of pain and felt she was not being listened to
. she verbalized that she will ask for pain meds which are on a prn basis and then will have wait an hour and by then the pain 'is a nine'. she also seemed to feel that she was not prepared for the extent of the surgery and now says 'all my organs
are gone.' she denied that she was suicidal but admitted it was hard to look towards the future and see this as a stepping stone to actually getting healthier but she reiterated that she would not and had not harmed herself. she calmed somewhat
when i told her i would talk w her attending about a scheduled pain medication w a 'hold for sedation ' order. she also took issue with the med sitter which had been ordered. she felt it was intrusive and demeaning. the rest of the psych interview
including past psych history hx was postponed until tomorrow when hopefully patient is feeling better. it is noted from the chart that patient had been taking zoloft
past medical hx see above patient w hx crohn's and ulcerative colitis. now has ileostomy .she had uternine fibroid which originally was not going to be removed but this ended up a necessity. she has hx gerd anemia and is now having transfusions
as hgb was 6.8 patient w psoriasis spinal degnerative disease atrophic right kidney w elevated creatine hyponatremia w sodium of 130
fh non contributory
substance abuse denied
social lives alone not no children not currently employed
mse alert ox3 patient clearly in physical pain and upset about recent surgery. speech was loud and s/w pressured thought process goal oriented mood is angry affect labile. she is not psychotic she denies that she would ever harm herself aver
intelligence insight judgment fair
dx adjustment disorder h/o ?depression
plan for now asked dr cr to order a scheduled dose of pain meds w order to hold for sedation. patient is denying suicidalitiy. would dc med sitter. patient is situated very close to nurses station and is being monitored carefully as per her
nurse. psych will return to see her tomorrow to reassess and consider antidepressants possibly. would hold off on these for now as she is hyponatremic.
[2024-08-07] MEDS: ROXICODONE 5 MG PO ×2 (14:49→19:28)
--- NOTE | 2024-08-07 15:53 | CM ---
Addendum entered by Teodora Patricia RN 08/07/24 16:06:
Spoke with Danielle, s [facility]; provided clinical update. They are able to accept the patient when she is medically ready. The ph for report [phone], fax [phone].
Plan [facility] when medically ready.
Original Note:
Patient who is homeless with Dx Pneumoperitoneum (suspected perforated colon) on 08/05 s/p total abdominal colectomy with end-ileostomy, anemia s/p transfusions today. Room air. Clear liquids, IVF, TPN. Receiving IV Steroids, IV Abx, IV Dilaudid
prn, Roxicodone prn. JAXSON Drain. Seen by Psych today. Seen by wound care/ostomy nurse today. PT/OT held. Prior PT/OT recommended skilled rehab.
CM continuing to follow for d/c needs.
Plan [facility] when medically ready.
[2024-08-07] MEDS: FLUSH (NSS) 2 FLUSH IV (16:34)
--- NOTE | 2024-08-07 18:04 | WOUNDNOTE ---
WOC RN note: Patient's sister in law Kylie plans to visit patient on Sunday afternoon and Kylie will request patient's nurse at that time to leda text this manual writer for ostomy teaching.
[2024-08-07 18:06] LABS: Hemoglobin 9.2 g/dL (12.0-16.0)
[2024-08-07 18:08] LABS: INR 1.26; PT 15.9 Sec (11.4-14.6)
[2024-08-07 18:12] LABS: Glucose - Point of Care 112 mg/dl (70-99)
--- NOTE | 2024-08-07 18:46 | PTCARENOTE ---
Patient noted to have wet midline dressing for second time today. Dr. Pineda notified, redraw on HGB and PT/INR completed and MD notified. No changes at this time.
--- NOTE | 2024-08-07 18:49 | PTCARENOTE ---
Assumed care of pt this am and met with pain management and emotional challenges. Pt expresses that she is NOT suicidal but is sad and upset regarding her surgeries. She feels uncertain of many things. Emotional support and encouragement provided
but pt wax and wanes in mood swings from angry/tearful and then smiling. Pt has had increase in pain meds and a schedule dose added. Pt continues to rate pian 7-9 but her body mechanics appear less tense and rigid.
[2024-08-07] MEDS: TYLENOL 1000 MG PO (20:42)
[2024-08-07] MEDS: MYCOSTATIN ORAL SUSPENSION PO (20:45)
[2024-08-07] MEDS: Parenteral Nutrition, Central 1120 IV (21:42)
[2024-08-07] MEDS: XANAX 0.25 MG PO (22:13)
[2024-08-07 23:46] LABS: Glucose - Point of Care 125 mg/dl (70-99)
[2024-08-08] VITALS (17 sets, daily range): BP systolic 99–123; BP diastolic 59–104; PULSE 70–78; O2SAT 95; BMI 25.9
[2024-08-08] MEDS: ROXICODONE 5 MG PO ×3 (02:00→13:10)
--- NOTE | 2024-08-08 02:22 | PTCARENOTE ---
Caring for pt overnight. Pt was very worked up in beginning of shift d/t needing a dressing change. Pt tearful, anxious, angry & uncooperative at times. Pt was continuing to boss & [place] staff when trying to provide care, pt covering eyes and
refusing to look/be aware of what nurses are doing. Pt continuously asking for pain meds, c/o 10/10 pain at every assessment, pain is throughout abdomen, constant pain, dilaudid, geeta & tyl given. It was clear to nurse that pt was very anxious and
this was working pt up and was unable to feel like she could tolerate any pain. Reached out to CALIBRATION SPECIALIST, xanax given, pt was agreeable. xanax was effective, pt calmed down and able to rest. pt seems comfortable in bed. when providing care pt unable to
participate very much, very weak legs. Pt urinating great since luna was taken out. IVF, ivabx, TPN, pain meds. NSR on monitor, remains RA but shallow. BP stable. Call quiñones in reach. will monitor.
[2024-08-08] MEDS: DILAUDID 1 MG IV ×7 (02:37→23:42)
[2024-08-08] MEDS: ZOSYN 50 IV ×4 (05:27→23:42)
[2024-08-08] MEDS: TYLENOL 1000 MG PO ×3 (05:27→21:13)
[2024-08-08] MEDS: NOVOLOG FLEXPEN-LOW RESISTANCE SC ×2 (05:39→22:23)
[2024-08-08 05:40] LABS: Glucose - Point of Care 118 mg/dl (70-99)
--- NOTE | 2024-08-08 05:50 | PTCARENOTE ---
x1 dilaudid ordered for pt this am, pt was due for prn dilaudid within 45min but pt felt like she could not wait and was crying out to nurse for pain medications, stated she was cramping up. PRINCIPAL PROGRAMMER also ordered prn xanax which i think will be very
helpful. pt now laying comfortably.
CHG wipes completed.
Pt refused most of her turns overnight, education was provided & pt still refused.
[2024-08-08 06:00] LABS: % Basophils 0.5 % (0-2); % Eosinophils 0.1 % (0-6); % Immature Granulocytes 2.4 % (0-0.5); % Lymphocytes 8.3 % (20.5-51.1); % Monocytes 1.6 % (1.7-9.3); % Neutrophils 87.1 % (42.2-75.2); Absolute Basophils 0.1 10^3/uL (0-0.2); Absolute Immature Granulocytes 0.4 10^3/uL (0-0.05); Absolute Lymphocytes 1.2 10^3/uL (1.2-3.4); Absolute Monocytes 0.2 10^3/uL (0.1-0.6); Absolute Neutrophils 12.8 10^3/uL (1.4-6.5); Hematocrit 31.3 % (37.0-47.0); Hemoglobin 10.4 g/dL (12.0-16.0); Mean Corp Hgb Conc. 33.2 g/dL (33.0-37.0); Mean Corpuscular Hgb 28.8 pg (27.0-31.0); Mean Corpuscular Volume 86.7 fL (81.0-99.0); Nucleated Red Blood Cells % 0 %; Platelet Count 241 10^3/uL (130-400); Red Blood Cell Count 3.61 10^6/uL (4.20-5.40); Red Cell Dist. Width 16.6 % (11.5-14.5); White Blood Cell Count 14.6 10^3/uL (4.8-10.8)
[2024-08-08 06:13] LABS: Phosphorus 2.5 mg/dl (2.5-4.5)
--- NOTE | 2024-08-08 08:17 | VATNOTE ---
On rounds: noted right picc dressing with skin tear on the lower part of the dressing. Optifoam dressing applied to the skin tear. Picc was redressed. Primary rn made aware.
--- NOTE | 2024-08-08 08:28 | PTCARENOTE ---
Pt crying inpain on rounds pain med given as ordered, Pt Void on bed mitchell . Still crying in 07/24 pain . TPN running as ordered. Pt in SR . lungs diminished and shallow.
--- NOTE | 2024-08-08 08:48 | PTOTSP ---
Pt s/p subtotal colectomy and ileostomy on 08/05/24. Will need new OT orders when stable for activity
[2024-08-08] MEDS: MYCOSTATIN ORAL SUSPENSION 5 ML PO ×3 (09:23→17:06)
[2024-08-08] MEDS: OSCAL 500 + D 500 MG PO (09:23)
[2024-08-08] MEDS: NSS (PRESERVATIVE FREE) 10 ML IV (09:23)
[2024-08-08] MEDS: XANAX 0.25 MG PO (09:23)
[2024-08-08] MEDS: SOLU-MEDROL PF 20 MG IV (09:24)
[2024-08-08] MEDS: PROTONIX IV 40 MG IV (09:24)
[2024-08-08] MEDS: LIDOCAINE 4% PATCH 1 PATCH TOPICAL (09:25)
[2024-08-08] MEDS: ZOLOFT 50 MG PO (09:25)
--- NOTE | 2024-08-08 10:11 | PN.CDI ---
CDI
- -
CDI:
Physician Documentation Request
Admit Date: 07/26/24 02:25
Dear Doctor Shyla,
Please review the following and provide your response in the progress notes.
Current documentation includes a diagnosis of hypotension.
Clinical Indicators:
#POD 2 total abdominal colectomy with end ileostomy,
#...IntraOp consult to ACCOUNTANCY PROFESSOR for MP/BSO
#EBL: 250cc
PN, 08/07
#IV fluids for hypotension
#Hypotension
#...-Possibly from blood loss
#...-Additional PRBC transfused on 08/07/24 with Hgb<7
Colorectal Surgery, PN, 08/07
#� Advance to clears, cont TPN for malnutrition,
#...cont IVF at 87/hr for resuscitation
#...(still on pressor)
Based on the above and your clinical assessment, please clarify which of the following is the most likely etiology of the above symptoms and treatment rendered:
Hypovolemic shock - indicate if due to surgery, trauma or other etiology
Hemorrhagic shock - indicate if due to surgery, trauma or other etiology
Shock, unknown type
Postoperative shock, type unknown
Hypotension - indicate type/etiology, such as idiopathic, neurogenic or orthostatic, post-procedural, postoperative, due to hemodialysis, chronic, drug induced (indicate drug), etc.
Hypotension - unknown type/etiology
Other(please specify)
Use of terms such as suspected, likely, concern for, or probable (associated with a specific diagnosis that is being evaluated, monitored, or treated as if it exists) are acceptable and can be coded in the inpatient setting, when documented at the
time of discharge.
Thank you,
Nayla Isaacs RN BSN CCDS
CDI Specialist
please contact via tiger text
Please use your independent medical judgment in providing your response.
--- NOTE | 2024-08-08 10:18 | PN.CDI ---
CDI
- -
CDI:
Physician Documentation Request
Admit Date: 07/26/24 02:25
Dear Doctor Shyla,
Please review the following and provide your response in the progress notes.
Clinical Indicators:
Kate, Operative report, 08/05
#Preoperative diagnosis:Perforated viscus,peritonitis,
#...enlarged uterus with calcified leiomyoma obstructing the view of pelvis
PN, 08/07
#Pneumoperitoneum (suspected perforated colon) on 08/05/24
#...status post total abdominal colectomy with end-ileostomy on 08/05/24
#- Continue Zosyn
Based on the above and your clinical assessment, please clarify which of the following most accurately describes the status of the patient's diagnosis/condition and continued use of Zosyn:
Perforated peritonitis
Localized peritonitis
Generalized peritonitis
Other (please specify)
Use of terms such as suspected, likely, concern for, or probable (associated with a specific diagnosis that is being evaluated, monitored, or treated as if it exists) are acceptable and can be coded in the inpatient setting, when documented at the
time of discharge.
Thank you,
Nayla Isaacs RN BSN CCDS
CDI Specialist
please contact via tiger text
Please use your independent medical judgment in providing your response.
--- NOTE | 2024-08-08 11:19 | W.PN.CRS1 ---
Today's Communication / Plan
-
Full liquid diet
TPN
Pain management
Restart Lovenox
Assessment/Plan
-
Hypotensive this morning 80s over 50s. Afebrile.
Hemoglobin 6.8 from 11.4.
08/07-2 units packed red blood cells, tranexamic 1 g
POD# 3 total abdominal colectomy with end-ileostomy
-Advance to fulls with Ensure. Continue TPN until solid food.
-Continue IV fluids.
-Restart Lovenox. TEDS/SCDS in place
-OOB as tolerated. Physical therapy reordered.
-Pain control: Dilaudid IV PRN increased, Tylenol 650 mg every 6 hours. Roxicodone 5 mg p.o. every 6 hours. I have reached out to pharmacy to discuss better pain options for this patient as her pain is not adequately managed yet.
-OR pathology pending
-Voiding post Odonnell removal
-Continue IV Zosyn
-Continue JAXSON drain until prior to d/c
-Psychiatry consult
Subjective Data
Procedure
08/05/24- total abdominal colectomy with end-ileostomy
Subjective Data
Date of Service: August 08, 2024
Patient states she is still in a lot of pain. She has no nausea or vomiting. She did tolerate a clear liquid diet.
Objective Data
-
Vital Signs
Temp Pulse Resp BP Pulse Ox
97.9 F 81 11 119/85 94
08/08/24 07:19 08/08/24 10:00 08/08/24 10:00 08/08/24 10:00 08/08/24 10:00
Intake & Output
08/07/24 08/08/24 08/09/24
06:59 06:59 06:59
Intake Total 4654 / 4654
Output Total 1420 / 1420 2500 / 2500 425 / 425
Balance -1420 / -1420 2154 / 2154 -425 / -425
Intake:
Oral fluids 960 / 960
IV fluids (Total) 1893 / 1893
IV piggybacks 300 / 300
TPN/PPN 500 / 500
Blood products 500 / 500
Blood Product Amount Infused ( 500 / 500
mL)
Packed Rbc Leukoreduced Unit 250 / 250
[id number]
Packed Rbc Leukoreduced Unit 250 / 250
[id number]
Output:
Liquid stool amount 160 / 160
Ileostomy 160 / 160
Drain Output (Total) 610 / 610 600 / 600
Left Lower Abdomen Kennedy- 610 / 610 600 / 600
Kern
Urine, Odonnell 650 / 650
Urine, Voided 1900 / 1900 425 / 425
Other:
Number of approximated SMALL 1
amounts of urine
Number of approximated LARGE 1
amounts of urine
Lab Results
08/08/24 05:31
08/07/24 06:09
Physical Exam
-
General: No Acute Distress and AOx3
Abdomen: Soft, Non Distended and Tender (moderate throughout (unchanged))
Skin: Warm and Dry
[2024-08-08] MEDS: LR 1000 IV ×2 (11:58→21:11)
[2024-08-08 12:27] LABS: Glucose - Point of Care 150 mg/dl (70-99)
[2024-08-08] MEDS: NOVOLOG FLEXPEN-LOW RESISTANCE 1 UNITS SC ×2 (13:32→16:45)
--- NOTE | 2024-08-08 15:22 | W.PN.UPDATE ---
Update Note
Progress Note Update
Attempted to see patient but she was sleeping at the time and it seems that she has been quite irritable and at times angry with various staff - did not awaken so as not to disrupt the milieu and as no acute psychiatric intervention appears needed
at the moment. Will check in at a later time.
[2024-08-08 16:19] LABS: Glucose - Point of Care 166 mg/dl (70-99)
--- NOTE | 2024-08-08 16:38 | W.PN.HOSP.TC ---
Today's Communication/Plan
-
Continue IV fluids, Zosyn, Full Liquids, TPN, Pain Regimen increased
Assessment / Plan
Assessment / Plan
Physical Exam
General: Not in acute distress
HEENT: Normocephalic, Atraumatic, Moist Mucous Membranes and Thrush (moderate, on Nystatin)
Respiratory: Clear to Auscultation
Cardiac: Regular Rhythm and S1/S2
GI: Soft, mild distension, generalized tenderness
Musculoskeletal: No Cyanosis
Neuro: Awake, Alert and Oriented
Assessment/Plan
Patient with history of inflammatory bowel disease (Crohn's and ulcerative colitis), psoriasis who presented to the emergency department with persistent abdominal pain diarrhea and nausea status post admission for exacerbation in June 2024 at
[facility]. She was discharged on a prednisone taper, mesalamine and given a dose of Remicade prior to discharge. Patient was unable to fill the mesalamine but has continued on the prednisone taper pending follow-up with
business development agent. She is however having persistent to worsening symptoms and unable to wait for the appointment with business development agent. Labs remarkable for anemia with hemoglobin of 8.1 (on admission)-->8.7-->8.9-->7.8-->8.8-->8.6-->7.6-unit
blood transfused-->8.9
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
#GI -abdominal pain, frequent bloody and loose stools, tenderness, consistent with active inflammatory bowel disease.
#Pneumoperitoneum (suspected perforated colon) on 08/05/24 status post total abdominal colectomy with end-ileostomy on 08/05/24
#Perforated peritonitis
CT scan showed colitis 07/26/24, and as per radiologist's report: Diffuse colonic and rectal wall thickening with some stranding in the adjacent fat consistent with diffuse colitis and likely secondary to known ulcerative colitis.
10.8 x 8.4 cm peripherally calcified lesion within the uterus, likely large, partially calcified fibroid.
Atrophic right kidney.
Multilevel degenerative changes of the thoracolumbar spine with grade 1 anterolisthesis of L5 on S1 and bilateral pars defects.
It appears that she was started on induction therapy to achieve remission but patient is not quite responding to the steroids, immunomodulators. Based on the treatment approach suggestion that she has more of an ulcerative colitis picture
'patient has also been diagnosed with Crohn's and has psoriasis
Still had abdominal pain, input of CRS appreciated, pt moved to IMU 08/01
CT scan 07/31/24, and as per radiologist's report: Lack of oral contrast opacification of large bowel with markedly distended large bowel through to the proximal sigmoid colon with air and fluid, smooth elongated tapering to normal caliber mid to
distal sigmoid with sigmoid and rectal liquid stool, findings possibly representing ileus associated with patient's known IBD. No free air.
New tiny left pleural effusion and accompanying bilateral lower lobe subsegmental atelectasis.
Atrophic right kidney again noted.
Large uterine lesion again seen likely representing degenerated leiomyoma.
Mildly distended gallbladder again suspected. No findings to suggest biliary tract dilatation.
Hyponatremia Na 134 most likely associated with diarrhea
Acute blood loss anemia with baseline chronic iron deficiency anemia
- Full Liquids Diet
- IV steroids changed to Prednisone 60 mg daily. As per GI was changed back to IV steroids -- on 08/06/24 decreased to 20 mg BID (from 20 mg Q8H) --> and now discontinued
- GI working on getting patient Remicade/Infliximab
- TPN as per colorectal surgery -- continue TPN until patient can eat solid food
- Continue Zosyn
- Continue IV fluids
- Continue JAXSON drain until just prior to discharge
- Pain regimen intensified on 08/07/24 to include increase in PRN Dilaudid, scheduled Tylenol and scheduled Oxycodone (discussed this with on-call psychiatry who recommended scheduled pain
medication and to hold for sedation) -- Oxycodone further increased to 10 mg from 5 mg scheduled, and PRN Dilaudid frequency increased to Q2H prn
- Per report, patient is homeless (states she is between homes, details unclear)
#Post-Surgical Hypotension
-Possibly from blood loss
-Additional PRBC transfused on 08/07/24 with Hgb<7
-Tranexamic acid 1 g on 08/07/24
-Continue IV fluids
#Anemia - ACD vs Iron def Anemia given intermittently bloody stools for week
- Iron studies: Ferritin 239, Fe sat unmeasurable
IV Fe started
- LDH normal. folate is normal. vitamin b12 is high.
- Transfuse if hgb < 7
- Dr. Shyla Doss Texted on-call commutator v ring assembler Dr. Bray on July 26, 2024 morning, to confirm whether someone with inflammatory bowel disease on immunosuppressive medications needs CMV negative, and irradiated blood (in addition to
leukoreduced), but she mentioned that there is no need for CMV negative and irradiated blood but rather in this case can give regular leukoreduced PRBCs. I appreciate Dr. Bray's assistance.
- 1 unit of PRBC transfused on 07/26/24, 2nd unit 08/02, 3rd and 4th units on 08/07/24
Once acute GI issues have settled, Pt concerned about weakness and believes she should go to a rehab facility prior to going home
await CM and insurance prior auth. PT/OT input recommending SNF appreciated
#Large degenerating fibroid encompassing a good portion of her pelvis based on the CT scan status post MP BSO intraoperatively on 08/05/24
-Follow-up with urogynecology outpatient (colorectal surgery discussed this with Dr. Dickson of outpatient urogynecology)
DVT Prophylaxis: Knee-High TEDs and SCDs. RESUME LOVENOX.
Code Status: Full Code
Anticipated Discharge: > 48 hours
Subjective/Interval History
-
Date of Service: August 08, 2024
Patient was seen and examined. She reported continued pain in her abdomen.
Objective Data
-
Labs:
Laboratory Results
08/08/24
05:31
WBC 14.6 H
Hgb 10.4 L
Hct 31.3 L
Plt Count 241
Vital Signs:
Vital Signs
Temp Pulse Resp BP Pulse Ox
98 F 70 7 99/70 94
08/08/24 11:05 08/08/24 16:16 08/08/24 16:16 08/08/24 16:17 08/08/24 16:16
I&O
08/07/24 08/08/24 08/09/24
06:59 06:59 06:59
Intake Total 4654 / 4654 100 / 100
Output Total 1420 / 1420 2500 / 2500 825 / 825
Balance -1420 / -1420 2154 / 2154 -725 / -725
[2024-08-08] MEDS: LOVENOX 40 MG SC (17:06)
--- NOTE | 2024-08-08 17:19 | CM ---
Patient who is homeless with Dx Pneumoperitoneum (suspected perforated colon) on 08/05 s/p total abdominal colectomy with end-ileostomy, anemia. Full liquids. IVF, TPN. PICC. Receiving IV Abx. JAXSON Drain. Seen by Psych today. Seen by wound
care/ostomy nurse today. PT/OT recommended skilled rehab.
[facility]: The for report [phone], fax [phone].
Plan [facility] when medically ready.
--- NOTE | 2024-08-08 17:57 | W.PN.GYNONC ---
Today's Communication
-
Continue present plans
Impression / Plan
-
POD 3 exploratory laparotomy,total abdominal colectomy with end ileostomy and total abdominal hysterectomy with BSO.
path still pending
Diet as colorectal surgery
Patient is receiving antibiotics because of peritonitis and has ongoing leukocytosis
I will see her intermittently during the course of hospitalization
Subjective / Interval History
-
Patient was seen today, introduced myself to her and explained to her my role in her surgery and reviewed the indications for total hysterectomy and bilateral salpingo-oophorectomy.
She seems very unhappy and did not want to elaborate on the situation much. She is suffering from incisional pain also needed to use the commode so she asked me to leave
Objective Data
-
Lab Results:
08/08/24 05:31
Physical Exam
Vital Signs / I&O
Vitals
Temp Pulse Resp BP Pulse Ox
97.9 F 70 7 99/70 94
08/08/24 15:00 08/08/24 16:16 08/08/24 16:16 08/08/24 16:17 08/08/24 16:16
I&O
08/06/24 08/07/24 08/08/24 08/09/24
06:59 06:59 06:59 06:59
Intake Total 4654 / 4654 1698 / 1698
Output Total 470 / 470 1420 / 1420 2500 / 2500 1175 / 1175
Balance -470 / -470 -1420 / -1420 2154 / 2154 523 / 523
Physical Exam
General: No Apparent Distress
HEENT: Normocephalic
Respiratory: Clear
Cardiac: S1/S2 and Regular Rhythm
GI: Soft and Non Distended
Psych: Agitated and Anxious
[2024-08-08] MEDS: ROXICODONE 10 MG PO (19:22)
[2024-08-08 20:21] LABS: Blood Urea Nitrogen 12 mg/dl (7-17); Carbon Dioxide 31 mmol/L (22-30); Chloride 98 mmol/L (98-107); Estimated Creatinine Clearance 104 ml/min; Glucose 127 mg/dl (70-99); Potassium 4.9 mmol/L (3.5-5.1); Sodium 132 mmol/L (135-145); eGFR > 60.00
[2024-08-08] MEDS: MYCOSTATIN ORAL SUSPENSION PO (21:08)
[2024-08-08] MEDS: Parenteral Nutrition, Central 1120 IV (21:12)
[2024-08-08 21:59] LABS: Glucose - Point of Care 122 mg/dl (70-99)
--- NOTE | 2024-08-08 22:25 | PTCARENOTE ---
pt on TPN, not a diabetic at baseline. sugar checks changed back to q6- sugar was checked around 2200- refusing it to be checked again at 0000. sugar 122 so no coverage at this time.
[2024-08-09] VITALS (12 sets, daily range): BP systolic 100–137; BP diastolic 61–89; BMI 25.7
[2024-08-09] MEDS: ROXICODONE 10 MG PO ×2 (02:20→07:43)
[2024-08-09] MEDS: TUMS CHEWABLE TABLET 400 MG PO (02:44)
--- NOTE | 2024-08-09 02:47 | PTCARENOTE ---
assumed care of patient, pt is AAOx3, flat, withdrawn, anxious. VSS. pulse ox 98% RA. midline dressing intact, JAXSON drain with serous fluid, iliostomy intact emptied for 50ml. pt reporting 9/10 pain, medicated per MAR. pt noted to be sleeping most of
shift, waking up and asking for pain meds right away but appears comfortable. after IV dilaudid administration, pt stated her pain was better, admitted to being comfortable and being able to sleep but still asking for pain meds frequently. pt
tolerating a full liquid diet, but complaining of intermittent cramps and indigestion. notified covering STEAM PIPE FITTER, PRN tums ordered and given per DEC. TPN infusing, IV fluids infusing without issues. care ongoing.
[2024-08-09] MEDS: DILAUDID 1 MG IV ×6 (03:23→22:36)
[2024-08-09] MEDS: ZOFRAN 4 MG IV ×3 (03:23→16:10)
--- NOTE | 2024-08-09 03:30 | PTCARENOTE ---
pt screaming out stating she feels like she is going to throw up but also asking for pain meds, PRN zofran and dilaudid given. pt advised that large doses of narcotics can cause nausea, pt still wants dilaudid.
[2024-08-09] MEDS: ZOSYN 50 IV ×3 (05:06→17:31)
[2024-08-09] MEDS: TYLENOL 1000 MG PO (05:06)
[2024-08-09] MEDS: NOVOLOG FLEXPEN-LOW RESISTANCE SC ×3 (05:06→18:42)
[2024-08-09 05:22] LABS: Glucose - Point of Care 105 mg/dl (70-99)
[2024-08-09 05:43] LABS: % Basophils 0.5 % (0-2); % Eosinophils 0.5 % (0-6); % Lymphocytes 6.7 % (20.5-51.1); % Monocytes 1.5 % (1.7-9.3); % Neutrophils 87.8 % (42.2-75.2); Absolute Basophils 0.1 10^3/uL (0-0.2); Absolute Eosinophils 0.1 10^3/uL (0-0.7); Absolute Immature Granulocytes 0.4 10^3/uL (0-0.05); Absolute Monocytes 0.2 10^3/uL (0.1-0.6); Absolute Neutrophils 12.8 10^3/uL (1.4-6.5); Hematocrit 31.6 % (37.0-47.0); Hemoglobin 10.7 g/dL (12.0-16.0); Mean Corp Hgb Conc. 33.9 g/dL (33.0-37.0); Mean Corpuscular Hgb 30.1 pg (27.0-31.0); Mean Platelet Volume 9.1 fL (7.4-10.4); Nucleated Red Blood Cells % 0 %; Platelet Count 243 10^3/uL (130-400); Red Blood Cell Count 3.55 10^6/uL (4.20-5.40); Red Cell Dist. Width 15.9 % (11.5-14.5); White Blood Cell Count 14.5 10^3/uL (4.8-10.8)
[2024-08-09 06:05] LABS: Magnesium 1.9 mg/dl (1.6-2.3); Phosphorus 2.9 mg/dl (2.5-4.5)
--- NOTE | 2024-08-09 07:05 | PTCARENOTE ---
this AM patient rang to use the bedpan. while patient sitting on bedpan pt stated she needed to spit up, pt then proceeded to vomit a large amount of brown/green liquid. IV zofran was given to patient around 0330 for acid reflux. pt stated she felt
better afterwards. afterwards, pt noted to be sleeping. day shift RN updated on events.
[2024-08-09] MEDS: NSS (PRESERVATIVE FREE) 10 ML IV (07:42)
[2024-08-09] MEDS: LR 1000 IV (07:42)
[2024-08-09] MEDS: PROTONIX IV 40 MG IV (07:42)
[2024-08-09] MEDS: MYCOSTATIN ORAL SUSPENSION PO ×3 (07:43→17:32)
[2024-08-09] MEDS: LIDOCAINE 4% PATCH TOPICAL (07:43)
[2024-08-09] MEDS: ZOLOFT 50 MG PO (07:44)
[2024-08-09] MEDS: OSCAL 500 + D 500 MG PO (07:44)
--- NOTE | 2024-08-09 08:17 | PTCARENOTE ---
Assumed care at 0700. NSR on telemetry, HR 70-80s. VSS. Observed sleeping when left undisturbed. Easily arouses to voice. Patient reports constant 10/10 abd pain. Medicated w/ scheduled oxycodone. Midline abd dressing saturated w/ serosanguineous
drainage, cleansed w/ saline and redressed. Ileostomy emptied for 50ml translucent brown liquid. Repositioned in bed. Left w/ call quiñones in reach.
[2024-08-09] MEDS: OMNIPAQUE 50 ML PO (10:13)
[2024-08-09] MEDS: OFIRMEV 100 IV ×2 (11:21→17:31)
[2024-08-09 11:40] LABS: Glucose - Point of Care 134 mg/dl (70-99)
--- NOTE | 2024-08-09 12:41 | W.PN.CRS1 ---
Today's Communication / Plan
-
As below
Assessment/Plan
-
54-year-old, homeless, female with PMH of indeterminate colitis (first diagnosed in 2003; received 1 dose of Remicade at that time and then was treated with Asacol for 1 year; she had repeated flares in 2009, 2010 and 2011 for which she received
steroids and was switched to mesalamine derivatives; in 2018, she reports a colonoscopy for which she was told she was in remission and her medications were stopped; she was recently admitted to [facility] in June with a recurrent flare; she
was treated with IV steroids and received a dose of Remicade on 07/14; she was discharged with a steroid taper) who presented to [place] [facility] on 07/26 with persistent abdominal pain and loose stools, averaging 6-10/day, since her discharge from
[facility]. 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 Her CRP was 121, albumin 2.5. She was treated with IV steroids and transitioned to oral. While admitted, her abdominal pain seemed to get worse over the following 3 to [address]
showed worsening colonic distention (transverse at 6 cm, cecum at 8 cm) with gradual tapering toward the sigmoid, concerning for a colonic ileus. A CRP was greater than 270. Her HR increased to 120s and pain was 10/10. CRS was consulted on 08/01.
-She was offered surgery but she wanted to exhaust non-operative measures. She was switched back to IV steroids and improved
-On 08/05, and AXR was done which showed pneumoperitoneum, consistent with perforation; she was taken for emergency surgery
POD 4 total abdominal colectomy with end ileostomy, IntraOp consult to TELEPHONE ENGINEER who performed MP/BSO
AFVSS (off yue)
WBC 14.5 from 14.6, Hb 10.7 from 10.4, Cr 0.5, UOP 2.4 L
� Make patient n.p.o. due to nausea and vomiting; cont TPN for malnutrition, cont IVF at 50/hr for total of 100mL/hour of total fluids
�Due to overnight vomiting and leukocytosis, will obtain CTAP with p.o. and IV contrast
� Continue pain control; recommend pain management, continue lidocaine patch, Tylenol ATC and Dilaudid/oxycodone as needed; may need extended release options
� Weaned off steroids; depending on Crohn's versus UC, will possibly need maintenance medication; appreciate GI
� Continue IV Zosyn
� Continue DVT PPx with Lovenox
� Appreciate hospitalist
Subjective Data
Procedure
08/05/24- total abdominal colectomy with end-ileostomy
Subjective Data
Date of Service: August 09, 2024
Overnight, patient vomited per nursing. This a.m., patient continues to be nauseous and burping.
Pain still not well-controlled.
+ostomy output +voiding
Objective Data
-
Vital Signs
Temp Pulse Resp BP Pulse Ox
98.4 F 80 24 129/75 98
08/09/24 11:10 08/09/24 08:00 08/09/24 08:00 08/09/24 08:00 08/08/24 20:24
Intake & Output
08/08/24 08/09/24 08/10/24
06:59 06:59 06:59
Intake Total 4654 / 4654 1987 / 1987 100 / 100
Output Total 2500 / 2500 2680 / 2680
Balance 2154 / 2154 -692 / -692 100 / 100
Intake:
Oral fluids 960 / 960 240 / 240
IV fluids (Total) 1894 / 1894 1044 / 1044
IV piggybacks 300 / 300 200 / 200 100 / 100
TPN/PPN 500 / 500 504 / 504
Blood products 500 / 500
Blood Product Amount Infused ( 500 / 500
mL)
Packed Rbc Leukoreduced Unit 250 / 250
[id number]
Packed Rbc Leukoreduced Unit 250 / 250
[id number]
Output:
Liquid stool amount 50 / 50
Ileostomy 50 / 50
Drain Output (Total) 600 / 600 180 / 180
Left Lower Abdomen Kennedy- 600 / 600 180 / 180
Kern
Urine, Voided 1900 / 1900 2450 / 2450
Other:
Number of approximated SMALL 1 1
amounts of urine
Number of approximated MODERATE 1
amounts of urine
Number of approximated LARGE 1 1
amounts of urine
Lab Results
08/09/24 05:10
08/08/24 20:00
--- NOTE | 2024-08-09 13:09 | W.PN.UPDATE ---
Update Note
Progress Note Update
Patient is rather irritable and very angry about having pain and feeling that surgery may have not been necessary. She is also not very communicative and even during my visit was asking for pain medications. She denies depression or active suicidal
thoughts.
I tried to suggest some techniques to help with pain control but she was not interested feeling it would not help.
Will F/U.
--- NOTE | 2024-08-09 14:40 | PTCARENOTE ---
16 Fr salem sump placed to L nare. 500ml brown translucent immediate output. Dr. Harding aware. Portable CXR at currently at bedside.
--- NOTE | 2024-08-09 15:56 | CHAP ---
Visited Kacey at 3pm. She was awake and welcoming - said she still has a lot of pain, but there has been a little improvement. She expressed appreciation for her family. Kacey seemed drained and worn out from all she's been through. Emotional
and spiritual support provided, along with the assurance of our on-going care.
[2024-08-09] MEDS: CHLORASEPTIC/SORE THROAT SPRAY 1 SPRAY PO ×3 (16:10→22:36)
--- NOTE | 2024-08-09 17:09 | W.PN.HOSP.TC ---
Today's Communication/Plan
-
CT imaging
NPO. Continue IV fluids and TPN.
Continue Lovenox for DVT prophylaxis
Assessment / Plan
Assessment / Plan
Physical Exam
General: Not in acute distress
HEENT: Normocephalic, Atraumatic, Moist Mucous Membranes and Thrush (moderate, on Nystatin)
Respiratory: Clear to Auscultation
Cardiac: Regular Rhythm and S1/S2
GI: Soft, mild distension, generalized tenderness
Musculoskeletal: No Cyanosis
Neuro: Awake, Alert and Oriented
Assessment/Plan
Patient with history of inflammatory bowel disease (Crohn's and ulcerative colitis), psoriasis who presented to the emergency department with persistent abdominal pain diarrhea and nausea status post admission for exacerbation in June 2024 at
[facility]. She was discharged on a prednisone taper, mesalamine and given a dose of Remicade prior to discharge. Patient was unable to fill the mesalamine but has continued on the prednisone taper pending follow-up with
communications technologist. She is however having persistent to worsening symptoms and unable to wait for the appointment with communications technologist. Labs remarkable for anemia with hemoglobin of 8.1 (on admission)-->8.7-->8.9-->7.8-->8.8-->8.6-->7.6-unit
blood transfused-->8.9
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
#GI -abdominal pain, frequent bloody and loose stools, tenderness, consistent with active inflammatory bowel disease.
#Pneumoperitoneum (suspected perforated colon) on 08/05/24 status post total abdominal colectomy with end-ileostomy on 08/05/24
#Perforated peritonitis
CT scan showed colitis 07/26/24, and as per radiologist's report: Diffuse colonic and rectal wall thickening with some stranding in the adjacent fat consistent with diffuse colitis and likely secondary to known ulcerative colitis.
10.8 x 8.4 cm peripherally calcified lesion within the uterus, likely large, partially calcified fibroid.
Atrophic right kidney.
Multilevel degenerative changes of the thoracolumbar spine with grade 1 anterolisthesis of L5 on S1 and bilateral pars defects.
It appears that she was started on induction therapy to achieve remission but patient is not quite responding to the steroids, immunomodulators. Based on the treatment approach suggestion that she has more of an ulcerative colitis picture
'patient has also been diagnosed with Crohn's and has psoriasis
Still had abdominal pain, input of CRS appreciated, pt moved to IMU 08/01
CT scan 07/31/24, and as per radiologist's report: Lack of oral contrast opacification of large bowel with markedly distended large bowel through to the proximal sigmoid colon with air and fluid, smooth elongated tapering to normal caliber mid to
distal sigmoid with sigmoid and rectal liquid stool, findings possibly representing ileus associated with patient's known IBD. No free air.
New tiny left pleural effusion and accompanying bilateral lower lobe subsegmental atelectasis.
Atrophic right kidney again noted.
Large uterine lesion again seen likely representing degenerated leiomyoma.
Mildly distended gallbladder again suspected. No findings to suggest biliary tract dilatation.
Hyponatremia Na 134 most likely associated with diarrhea
Acute blood loss anemia with baseline chronic iron deficiency anemia
- Patient back to NPO as of 08/09/24 due to nausea and vomiting
- Due to overnight (08/08/24 to 08/09/24) vomiting and leukocytosis, CTAP with p.o. and IV contrast
- Steroids now discontinued as per colorectal surgery recommendations
- GI working on getting patient Remicade/Infliximab
- TPN as per colorectal surgery -- continue TPN
- Continue Zosyn
- Continue IV fluids
- Continue JAXSON drain until just prior to discharge
- Pain regimen intensified on 08/07/24 to include increase in PRN Dilaudid, scheduled Tylenol and scheduled Oxycodone (discussed this with on-call psychiatry who recommended scheduled pain
medication and to hold for sedation) -- Oxycodone further increased to 10 mg from 5 mg scheduled, and PRN Dilaudid frequency increased to Q2H prn -- now colorectal surgery changed it, appreciate
colorectal surgery
- Per report, patient is homeless (states she is between homes, details unclear)
#Post-Surgical Hypotension
-Possibly from blood loss
-Additional PRBC transfused on 08/07/24 with Hgb<7
-Tranexamic acid 1 g on 08/07/24
-Continue IV fluids
#Anemia - ACD vs Iron def Anemia given intermittently bloody stools for week
- Iron studies: Ferritin 239, Fe sat unmeasurable
IV Fe started
- LDH normal. folate is normal. vitamin b12 is high.
- Transfuse if hgb < 7
- Dr. Shyla Doss Texted on-call hide puller Dr. Bray on July 26, 2024 morning, to confirm whether someone with inflammatory bowel disease on immunosuppressive medications needs CMV negative, and irradiated blood (in addition to
leukoreduced), but she mentioned that there is no need for CMV negative and irradiated blood but rather in this case can give regular leukoreduced PRBCs. I appreciate Dr. Bray's assistance.
- 1 unit of PRBC transfused on 07/26/24, 2nd unit 08/02, 3rd and 4th units on 08/07/24
Once acute GI issues have settled, Pt concerned about weakness and believes she should go to a rehab facility prior to going home
await CM and insurance prior auth. PT/OT input recommending SNF appreciated
#Large degenerating fibroid encompassing a good portion of her pelvis based on the CT scan status post MP BSO intraoperatively on 08/05/24
-Follow-up with urogynecology outpatient (colorectal surgery discussed this with Dr. Dickson of outpatient urogynecology)
DVT Prophylaxis: Knee-High TEDs and SCDs. LOVENOX.
Code Status: Full Code
Anticipated Discharge: > 48 hours
Subjective/Interval History
-
Date of Service: August 09, 2024
Patient was seen and examined. She has remained in a significant amount of pain.
Objective Data
-
Labs:
Laboratory Results
08/09/24
05:10
WBC 14.5 H
Hgb 10.7 L
Hct 31.6 L
Plt Count 243
Vital Signs:
Vital Signs
Temp Pulse Resp BP Pulse Ox
98.4 F 84 12 111/78 98
08/09/24 11:10 08/09/24 16:00 08/09/24 16:00 08/09/24 16:00 08/08/24 20:24
I&O
08/08/24 08/09/24 08/10/24
06:59 06:59 06:59
Intake Total 4654 / 4654 1987 / 1987 1167 / 1167
Output Total 2500 / 2500 2680 / 2680 850 / 850
Balance 2154 / 2154 -692 / -692 317 / 317
[2024-08-09] MEDS: LOVENOX 40 MG SC (17:32)
[2024-08-09 18:50] LABS: Glucose - Point of Care 108 mg/dl (70-99)
[2024-08-09] MEDS: Parenteral Nutrition, Central 1120 IV (21:57)
[2024-08-09] MEDS: XANAX 0.25 MG PO (21:57)
[2024-08-09] MEDS: MYCOSTATIN ORAL SUSPENSION 5 ML PO (21:57)
[2024-08-10] VITALS (14 sets, daily range): BP systolic 91–115; BP diastolic 59–84; PULSE 97; O2SAT 95; BMI 24.9
[2024-08-10 00:03] LABS: Glucose - Point of Care 103 mg/dl (70-99)
[2024-08-10] MEDS: ZOSYN 50 IV ×4 (00:26→18:21)
[2024-08-10] MEDS: OFIRMEV 100 IV ×4 (00:26→17:58)
[2024-08-10] MEDS: NOVOLOG FLEXPEN-LOW RESISTANCE SC ×4 (00:45→19:43)
[2024-08-10] MEDS: DILAUDID 1 MG IV ×4 (01:14→11:52)
--- NOTE | 2024-08-10 02:44 | PTCARENOTE ---
Pt AAOx3. Pt appearing to be more upbeat in mood. Pt slightly laughing with RN. Pt still having a high levels ABD pain, especially after moving her self in bed. Pt NG tube in place, R nare to wall suction. Emotional support given throughout shift.
Call quiñones within reach, bed alarm on. Assessment care and vitals as charted.
[2024-08-10 05:53] LABS: Hematocrit 26.7 % (37.0-47.0); Mean Corp Hgb Conc. 33.7 g/dL (33.0-37.0); Mean Corpuscular Hgb 30.1 pg (27.0-31.0); Mean Corpuscular Volume 89.3 fL (81.0-99.0); Mean Platelet Volume 9.4 fL (7.4-10.4); Platelet Count 220 10^3/uL (130-400); Red Blood Cell Count 2.99 10^6/uL (4.20-5.40); Red Cell Dist. Width 15.5 % (11.5-14.5); White Blood Cell Count 8.6 10^3/uL (4.8-10.8)
[2024-08-10 06:15] LABS: Glucose - Point of Care 110 mg/dl (70-99)
[2024-08-10] MEDS: DILAUDID 0.5 MG IV (06:24)
[2024-08-10 06:53] LABS: % Basophils 0.3 % (0-2); % Eosinophils 0.3 % (0-6); % Immature Granulocytes 5.5 % (0-0.5); % Monocytes 1.7 % (1.7-9.3); % Neutrophils 80.2 % (42.2-75.2); Absolute Immature Granulocytes 0.5 10^3/uL (0-0.05); Absolute Monocytes 0.2 10^3/uL (0.1-0.6); Absolute Neutrophils 6.9 10^3/uL (1.4-6.5); Nucleated Red Blood Cells % 0 %
[2024-08-10] MEDS: LIDOCAINE 4% PATCH TOPICAL (08:27)
[2024-08-10] MEDS: NSS (PRESERVATIVE FREE) 10 ML IV (08:33)
[2024-08-10] MEDS: MYCOSTATIN ORAL SUSPENSION 5 ML PO ×4 (08:33→21:11)
[2024-08-10] MEDS: PROTONIX IV 40 MG IV (08:33)
[2024-08-10] MEDS: ZOLOFT 50 MG PO (08:34)
[2024-08-10] MEDS: OSCAL 500 + D 500 MG PO (08:34)
[2024-08-10 09:44] LABS: Blood Urea Nitrogen 9 mg/dl (7-17); Calcium 8.1 mg/dl (8.4-10.2); Carbon Dioxide 36 mmol/L (22-30); Chloride 90 mmol/L (98-107); Estimated Creatinine Clearance 104 ml/min; Glucose 482 mg/dl (70-99); Potassium 5.4 mmol/L (3.5-5.1); Sodium 131 mmol/L (135-145); eGFR > 60.00
--- NOTE | 2024-08-10 11:11 | W.PN.UPDATE ---
Update Note
Progress Note Update
Patient is today very quite, affect is flat, looks depressed. Denies suicidal thoughts but feels very pessimistic regarding her physical condition and cannot find any lin in life. She was on Zoloft 50 mg daily prior to this hospitalization; not sure
if it helps.
At this point she is resistant to any psychotherapeutic suggestions.
I will increase the Zoloft to 75 mg daily.
[2024-08-10 11:42] LABS: Blood Urea Nitrogen 10 mg/dl (7-17); Carbon Dioxide 39 mmol/L (22-30); Chloride 90 mmol/L (98-107); Estimated Creatinine Clearance 104 ml/min; Glucose 102 mg/dl (70-99); Potassium 4.2 mmol/L (3.5-5.1); Sodium 131 mmol/L (135-145); eGFR > 60.00
--- NOTE | 2024-08-10 12:01 | W.PN.CRS1 ---
Addendum entered and electronically signed by Cj Harding MD 08/10/24 16:05:
I saw and examined the patient.
The HONEY GRADER AND BLENDER's note was reviewed and I agree with the note.
Comment:
54-year-old, homeless, female with PMH of indeterminate colitis (first diagnosed in 2003; received 1 dose of Remicade at that time and then was treated with Asacol for 1 year; she had repeated flares in 2009, 2010 and 2011 for which she received
steroids and was switched to mesalamine derivatives; in 2018, she reports a colonoscopy for which she was told she was in remission and her medications were stopped; she was recently admitted to [facility] in June with a recurrent flare; she
was treated with IV steroids and received a dose of Remicade on 07/14; she was discharged with a steroid taper) who presented to [facility] on 07/26 with persistent abdominal pain and loose stools, averaging 6-10/day, since her discharge from
[facility]. 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 Her CRP was 121, albumin 2.5. She was treated with IV steroids and transitioned to oral. While admitted, her abdominal pain seemed to get worse over the following 3 to [address]
showed worsening colonic distention (transverse at 6 cm, cecum at 8 cm) with gradual tapering toward the sigmoid, concerning for a colonic ileus. A CRP was greater than 270. Her HR increased to 120s and pain was 10/10. CRS was consulted on 08/01.
-She was offered surgery but she wanted to exhaust non-operative measures. She was switched back to IV steroids and improved
-On 08/05, and AXR was done which showed pneumoperitoneum, consistent with perforation; she was taken for emergency surgery
POD 5 total abdominal colectomy with end ileostomy, intraOp consult to [facility] who performed MP/BSO
-POD 4, developed nausea/vomiting, CT showing postoperative changes with ileus; NGT was placed
AFVSS
WBC 8.6 from 14.5, Hb 9.0 from 10.7, Cr 0.5, UOP 850 mL
�Repeat CBC this afternoon for drop in hemoglobin, likely delusional, possible acute blood loss
�If further drop noted on repeat CBC, hold evening DVT PPx, transfuse if Hb less than 7.0
�Continue n.p.o. with NGT
�Cont TPN for malnutrition
�Cont IVF at 50/hr for total of 100mL/hour of total fluids
� Continue pain control; will switch to Dilaudid KILN DOOR BUILDER as pain so far currently not well-controlled
�Will monitor for overall narcotic requirement
� Weaned off steroids; depending on Crohn's versus UC, will possibly need maintenance medication; appreciate GI
� Continue IV Zosyn for 7 days postoperatively
� Continue DVT PPx with Lovenox (unless further drop in CBC noted)
� Appreciate hospitalist
Original Note:
Today's Communication / Plan
-
Continue TPN/NPO/NGT
Pain management with KILN DOOR BUILDER
Assessment/Plan
-
54-year-old, homeless, female with PMH of indeterminate colitis (first diagnosed in 2003; received 1 dose of Remicade at that time and then was treated with Asacol for 1 year; she had repeated flares in 2009, 2010 and 2011 for which she received
steroids and was switched to mesalamine derivatives; in 2018, she reports a colonoscopy for which she was told she was in remission and her medications were stopped; she was recently admitted to [facility] in June with a recurrent flare; she
was treated with IV steroids and received a dose of Remicade on 07/14; she was discharged with a steroid taper) who presented to [facility] ED on 07/26 with persistent abdominal pain and loose stools, averaging 6-10/day, since her discharge from
[facility]. 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
Initially patient declining surgery. Attempted medical management with IV steroids with some improvement; however condition declined necessitating emergent OR as pneumoperitoneum was noted.
POD 5 total abdominal colectomy with end ileostomy, IntraOp consult to [facility] who performed MP/BSO
Worsening abdominal pain on 08/09 with n/v. CT imaging repeated and consistent with ileus. NGT was place with bilious/feculent outputs noted. Some improvement in pain with NGT placement but still persistent.
Await bowel recovery
AFVSS
Leukocytosis resolved
� NPO/NGT to wall suction
- TPN for malnutrition
- PPI for GI ppx
� Continue pain control; continue lidocaine patch, Ofirmev ATC. Will switch to KILN DOOR BUILDER.
� Continue IV Zosyn
� Continue DVT PPx with Lovenox
� Appreciate hospitalist
Subjective Data
Procedure
08/05/24 Ex lap with total abdominal colectomy with end-ileostomy and MP BSO
Subjective Data
Date of Service: August 10, 2024
Patient seen and examined at bedside with Dr. Harding. Frustrated that she is still having pain but does note improvement. Some nausea persists but no further vomiting since placement of NGT. Pain is primarily in upper abdomen and described as
pressure.
Objective Data
-
Vital Signs
Temp Pulse Resp BP Pulse Ox
98.7 F 89 15 103/77 96
08/10/24 03:00 08/10/24 06:26 08/10/24 06:26 08/10/24 06:26 08/10/24 11:45
Intake & Output
08/09/24 08/10/24 08/11/24
06:59 06:59 06:59
Intake Total 1987 / 1987 2611 / 2611
Output Total 2680 / 2680 2280 / 2280 425 / 425
Balance -692 / -692 331 / 331 -425 / -425
Intake:
Oral fluids 240 / 240 0 / 0
IV fluids (Total) 1044 / 1044 1000 / 1000
IV piggybacks 200 / 200 350 / 350
TPN/PPN 504 / 504 1081 / 1081
Amount instilled into GI Tube ( 180 / 180
Total)
[place] Sump 180 / 180
Output:
Liquid stool amount 50 / 50 150 / 150
Ileostomy 50 / 50 150 / 150
Drain Output (Total) 180 / 180 80 / 80
Left Lower Abdomen Kennedy- 180 / 180 80 / 80
[place]
Gastrointestinal tube output ( 1200 / 1200
Total)
[place] Sump 1200 / 1200
Urine, Voided 2450 / 2450 850 / 850 425 / 425
Other:
Number of approximated SMALL 1
amounts of urine
Number of approximated MODERATE 1
amounts of urine
Number of approximated LARGE 1 1
amounts of urine
Lab Results
08/10/24 04:51
08/10/24 11:19
Physical Exam
-
General: No Acute Distress and AOx3
Abdomen: Soft, Non Distended, Tender (moderate throughout (unchanged)), TPN Ordered and Other (stoma pink, viable with liquid brown outputs (small). NGT with bilious/feculent outputs)
Skin: Warm and Dry
Incision: No Skin Erythema and Other (Butch removed: dressing changed. Midline incision with intact lisandra)
Data Reviewed
-
CT Scan: Image Reviewed and Report Reviewed
[2024-08-10 13:26] LABS: Glucose - Point of Care 112 mg/dl (70-99)
[2024-08-10] MEDS: DILAUDID PCA 30 IV (14:53)
--- NOTE | 2024-08-10 16:08 | PTCARENOTE ---
Pt presents as assessed. Flat, withdrawn, at times uncooperative and angry with care. NSR on tele monitor. Refusing turns at times despite education. Consistently requests pain meds with severe pain ratings though pt appears comfortable or sleeping
when assessed. Order received to initiate Dilaudid USER EXPERIENCE RESEARCHER pump. Infusion started with no continuous rate, demand bolus of 0.2mg/hr, 15 minute lockout, for maximum hourly dose of 0.8mg/hr. Pt educated on USER EXPERIENCE RESEARCHER; verbalizes understanding. Midline incision
and JAXSON drain site C/D/I. JAXSON with serous output. Stoma red and budded, with stool output- see bowel movement intervention. Able to make needs known, call quiñones within reach.
--- NOTE | 2024-08-10 16:24 | PTCARENOTE ---
Pt presents as assessed. Flat, withdrawn, at times uncooperative and angry with care. NSR on tele monitor. Refusing turns at times despite education. Consistently requests pain meds with severe pain ratings though pt appears comfortable or sleeping
when assessed. Order received to initiate Dilaudid FINANCIAL INTERN pump. Infusion started with no continuous rate, demand bolus of 0.2mg/hr, 15 minute lockout, for maximum hourly dose of 0.8mg/hr. Pt educated on FINANCIAL INTERN; verbalizes understanding. Midline incision
and JAXSON drain site C/D/I. JAXSON with serous output. Stoma red and budded, with stool output- see bowel movement intervention. R nare NGT to continuous wall suction at 80mmhg with greenish output. Able to make needs known, call quiñones within reach.
[2024-08-10 17:19] LABS: % Basophils 0.4 % (0-2); % Eosinophils 0.2 % (0-6); % Immature Granulocytes 3.3 % (0-0.5); % Lymphocytes 10.9 % (20.5-51.1); % Monocytes 1.9 % (1.7-9.3); % Neutrophils 83.3 % (42.2-75.2); Absolute Basophils 0.1 10^3/uL (0-0.2); Absolute Immature Granulocytes 0.4 10^3/uL (0-0.05); Absolute Lymphocytes 1.4 10^3/uL (1.2-3.4); Absolute Monocytes 0.3 10^3/uL (0.1-0.6); Absolute Neutrophils 10.9 10^3/uL (1.4-6.5); Hematocrit 30.4 % (37.0-47.0); Hemoglobin 10.6 g/dL (12.0-16.0); Mean Corp Hgb Conc. 34.9 g/dL (33.0-37.0); Mean Corpuscular Hgb 31.3 pg (27.0-31.0); Mean Corpuscular Volume 89.7 fL (81.0-99.0); Mean Platelet Volume 9.2 fL (7.4-10.4); Nucleated Red Blood Cells % 0 %; Platelet Count 255 10^3/uL (130-400); Red Blood Cell Count 3.39 10^6/uL (4.20-5.40); Red Cell Dist. Width 15.7 % (11.5-14.5); White Blood Cell Count 13.1 10^3/uL (4.8-10.8)
[2024-08-10] MEDS: LOVENOX 40 MG SC (17:58)
--- NOTE | 2024-08-10 18:15 | W.PN.HOSP.TC ---
Today's Communication/Plan
-
NG tube and NPO for ileus
Continue TPN
IV fluids
MARKETING MGR for pain as per CRS
Continue Zosyn
Continue Lovenox for DVT Prophylaxis -- repeat Hgb today was okay
Appreciate colorectal surgery
Assessment / Plan
Assessment / Plan
Physical Exam
General: Not in acute distress
HEENT: Normocephalic, Atraumatic, Moist Mucous Membranes and Thrush (moderate, on Nystatin)
Respiratory: Clear to Auscultation
Cardiac: Regular Rhythm and S1/S2
GI: Soft, mild distension, generalized tenderness
Musculoskeletal: No Cyanosis
Neuro: Awake, Alert and Oriented
Assessment/Plan
Patient with history of inflammatory bowel disease (Crohn's and ulcerative colitis), psoriasis who presented to the emergency department with persistent abdominal pain diarrhea and nausea status post admission for exacerbation in June 2024 at
[facility]. She was discharged on a prednisone taper, mesalamine and given a dose of Remicade prior to discharge. Patient was unable to fill the mesalamine but has continued on the prednisone taper pending follow-up with
artist agent. She is however having persistent to worsening symptoms and unable to wait for the appointment with artist agent. Labs remarkable for anemia with hemoglobin of 8.1 (on admission)-->8.7-->8.9-->7.8-->8.8-->8.6-->7.6-unit
blood transfused-->8.9
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
#GI -abdominal pain, frequent bloody and loose stools, tenderness, consistent with active inflammatory bowel disease.
#Pneumoperitoneum (suspected perforated colon) on 08/05/24 status post total abdominal colectomy with end-ileostomy on 08/05/24
#Perforated peritonitis
CT scan showed colitis 07/26/24, and as per radiologist's report: Diffuse colonic and rectal wall thickening with some stranding in the adjacent fat consistent with diffuse colitis and likely secondary to known ulcerative colitis.
10.8 x 8.4 cm peripherally calcified lesion within the uterus, likely large, partially calcified fibroid.
Atrophic right kidney.
Multilevel degenerative changes of the thoracolumbar spine with grade 1 anterolisthesis of L5 on S1 and bilateral pars defects.
It appears that she was started on induction therapy to achieve remission but patient is not quite responding to the steroids, immunomodulators. Based on the treatment approach suggestion that she has more of an ulcerative colitis picture
'patient has also been diagnosed with Crohn's and has psoriasis
Still had abdominal pain, input of CRS appreciated, pt moved to IMU 08/01
CT scan 07/31/24, and as per radiologist's report: Lack of oral contrast opacification of large bowel with markedly distended large bowel through to the proximal sigmoid colon with air and fluid, smooth elongated tapering to normal caliber mid to
distal sigmoid with sigmoid and rectal liquid stool, findings possibly representing ileus associated with patient's known IBD. No free air.
New tiny left pleural effusion and accompanying bilateral lower lobe subsegmental atelectasis.
Atrophic right kidney again noted.
Large uterine lesion again seen likely representing degenerated leiomyoma.
Mildly distended gallbladder again suspected. No findings to suggest biliary tract dilatation.
Chest X-Ray 08/04/24, as per radiologist's report:
IMPRESSION:
There is new bowel wall thickening with some thumbprinting in the mid descending colon such as may be seen with inflammatory bowel disease or ischemia.
The bowel gas pattern is otherwise not significantly changed with differential diagnosis including ileus and Marisa's syndrome
Chest-Abdomen X-Ray 08/05/24, as per radiologist's report:
IMPRESSION: Moderate pneumoperitoneum. Interval decrease in colonic dilation as compared with previous radiographs.
CT Scan 08/09/24, as per radiologist's report:
1. Interval postoperative changes as described. Probable diffuse postoperative ileus and pneumoperitoneum. No darrell transition point/obstruction.
2. Small right and moderate left pleural effusions.
3. Fluid distention of the distal esophagus, new from prior and likely reflects gastroesophageal reflux.
Hyponatremia Na 134 most likely associated with diarrhea
Acute blood loss anemia with baseline chronic iron deficiency anemia
- Patient back to NPO as of 08/09/24 due to nausea and vomiting
- Due to overnight (08/08/24 to 08/09/24) vomiting and leukocytosis, CTAP with p.o. and IV contrast which showed postop ileus
- NG tube placed, given ileus
- Steroids now discontinued as per colorectal surgery recommendations
- GI working on getting patient Remicade/Infliximab
- TPN as per colorectal surgery -- continue TPN
- Continue Zosyn
- Continue IV fluids as per CRS
- Continue JAXSON drain until just prior to discharge
- Pain regimen intensified on 08/07/24 to include increase in PRN Dilaudid, scheduled Tylenol and scheduled Oxycodone (discussed this with on-call psychiatry who recommended scheduled pain
medication and to hold for sedation) -- Oxycodone further increased to 10 mg from 5 mg scheduled, and PRN Dilaudid frequency increased to Q2H prn -- now colorectal surgery changed it, appreciate it --> CRS plans to start MARKETING MGR
colorectal surgery
- Per report, patient is homeless (states she is between homes, details unclear)
#Post-Surgical Hypotension
-Possibly from blood loss
-Additional PRBC transfused on 08/07/24 with Hgb<7
-Tranexamic acid 1 g on 08/07/24
-Continue IV fluids
#Anemia - ACD vs Iron def Anemia given intermittently bloody stools for week
- Iron studies: Ferritin 239, Fe sat unmeasurable
IV Fe started
- LDH normal. folate is normal. vitamin b12 is high.
- Transfuse if hgb < 7
- Dr. Shyla Doss Texted on-call circus supervisor Dr. Bray on July 26, 2024 morning, to confirm whether someone with inflammatory bowel disease on immunosuppressive medications needs CMV negative, and irradiated blood (in addition to
leukoreduced), but she mentioned that there is no need for CMV negative and irradiated blood but rather in this case can give regular leukoreduced PRBCs. I appreciate Dr. Bray's assistance.
- 1 unit of PRBC transfused on 07/26/24, 2nd unit 08/02, 3rd and 4th units on 08/07/24
Once acute GI issues have settled, Pt concerned about weakness and believes she should go to a rehab facility prior to going home
await CM and insurance prior auth. PT/OT input recommending SNF appreciated
#Large degenerating fibroid encompassing a good portion of her pelvis based on the CT scan status post MP BSO intraoperatively on 08/05/24
-Follow-up with urogynecology outpatient (colorectal surgery discussed this with Dr. Dickson of outpatient urogynecology)
#Depression
-Zoloft increased by psychiatry
-Appreciate psychiatry
DVT Prophylaxis: Knee-High TEDs and SCDs. LOVENOX.
Code Status: Full Code
Anticipated Discharge: > 48 hours
Subjective/Interval History
-
Date of Service: August 10, 2024
Patient was seen and examined. She reported continued pain.
Objective Data
-
Labs:
Laboratory Results
08/10/24 08/10/24 08/10/24
09:14 11:19 17:05
WBC 13.1 H
Hgb 10.6 L
Hct 30.4 L
Plt Count 255
Sodium 131 L 131 L
Potassium 5.4 H 4.2
Chloride 90 L 90 L
Carbon Dioxide 36 H 39 H
BUN 9 10
Creatinine 0.6 0.5 L
Glucose 482 H* 102 H
Calcium 8.1 L 8.0 L
Vital Signs:
Vital Signs
Temp Pulse Resp BP Pulse Ox
98.1 F 96 19 115/84 95
08/10/24 11:20 08/10/24 12:00 08/10/24 16:00 08/10/24 12:00 08/10/24 16:00
I&O
08/09/24 08/10/24 08/11/24
06:59 06:59 06:59
Intake Total 1987 / 1987 2611 / 2611
Output Total 2680 / 2680 2280 / 2280 1250 / 1250
Balance -692 / -692 331 / 331 -1250 / -1250
[2024-08-10 19:37] LABS: Glucose - Point of Care 132 mg/dl (70-99)
[2024-08-10] MEDS: XANAX 0.25 MG PO (21:11)
[2024-08-10] MEDS: Parenteral Nutrition, Central 1120 IV (21:11)
[2024-08-11] VITALS (12 sets, daily range): BP systolic 104–124; BP diastolic 70–85; BMI 23.7
[2024-08-11] MEDS: ZOSYN 50 IV ×5 (00:29→23:54)
[2024-08-11] MEDS: OFIRMEV 100 IV ×4 (00:30→20:54)
[2024-08-11] MEDS: CHLORASEPTIC/SORE THROAT SPRAY 1 SPRAY PO (00:35)
[2024-08-11 01:09] LABS: Glucose - Point of Care 110 mg/dl (70-99)
[2024-08-11] MEDS: NOVOLOG FLEXPEN-LOW RESISTANCE SC ×5 (01:09→23:57)
--- NOTE | 2024-08-11 01:57 | PTCARENOTE ---
Pt appears to be having some relief from PUBLICATIONS WRITER. While rolling for bed mitchell. Pt not vocalizing pain as she had on previous shift. When asked about pain Pt did say it was helping 'a little' but she still has pain.
[2024-08-11 06:06] LABS: Glucose - Point of Care 129 mg/dl (70-99)
[2024-08-11 07:22] LABS: ALT (SGPT) 14 U/L (0-35); AST (SGOT) 13 U/L (14-36); Albumin 1.8 g/dl (3.5-5.0); Alkaline Phosphatase 342 U/L (38-126); Blood Urea Nitrogen 9 mg/dl (7-17); Calcium 7.7 mg/dl (8.4-10.2); Carbon Dioxide 36 mmol/L (22-30); Chloride 91 mmol/L (98-107); Estimated Creatinine Clearance 104 ml/min; Glucose 110 mg/dl (70-99); Magnesium 1.8 mg/dl (1.6-2.3); Phosphorus 3.9 mg/dl (2.5-4.5); Sodium 132 mmol/L (135-145); Total Bilirubin 0.2 mg/dl (0.2-1.3); Total Protein 3.9 g/dl (6.3-8.2); Triglycerides 168 mg/dl (10-149); eGFR > 60.00
[2024-08-11 07:25] LABS: % Basophils 0.2 % (0-2); % Eosinophils 0.2 % (0-6); % Immature Granulocytes 4.7 % (0-0.5); % Lymphocytes 7.7 % (20.5-51.1); % Monocytes 1.6 % (1.7-9.3); % Neutrophils 85.6 % (42.2-75.2); Absolute Immature Granulocytes 0.6 10^3/uL (0-0.05); Absolute Lymphocytes 0.9 10^3/uL (1.2-3.4); Absolute Monocytes 0.2 10^3/uL (0.1-0.6); Absolute Neutrophils 10.3 10^3/uL (1.4-6.5); Hematocrit 24.5 % (37.0-47.0); Hemoglobin 8.1 g/dL (12.0-16.0); Mean Corp Hgb Conc. 33.1 g/dL (33.0-37.0); Mean Corpuscular Hgb 29.7 pg (27.0-31.0); Mean Corpuscular Volume 89.7 fL (81.0-99.0); Mean Platelet Volume 9.3 fL (7.4-10.4); Nucleated Red Blood Cells % 0 %; Platelet Count 206 10^3/uL (130-400); Red Blood Cell Count 2.73 10^6/uL (4.20-5.40); Red Cell Dist. Width 15.4 % (11.5-14.5)
--- NOTE | 2024-08-11 08:09 | W.PN.HOSP.TC ---
Today's Communication/Plan
-
Continue TPN
Continue analgesics
PT/OT
Monitor hemoglobin
Stop nystatin
Assessment / Plan
Assessment / Plan
Gen-AAOx3, NAD
HEENT-NC, AT, anicteric, clear oral mm, no evidence of oral thrush
Neck-supple
CV-reg, no M, +S1/S2
Lungs-clear B/L
Abd-soft, NT, ND, ostomy intact, abdominal dressing with drain
Ext-no edema
Musculoskeletal-no cyanosis, clubbing
Skin-warm and dry
Neuro-grossly non-focal
Psych-calm, cooperative
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 Given dose of Remicade in late June, discharged with prescription for mesalamine that she did not fill. Steroid taper.
Still complaining of significant abdominal pain. However, she does look comfortable.
Pneumoperitoneum -underwent total abdominal colectomy with end ileostomy 08/05. Currently n.p.o., getting TPN for postoperative ileus. NG tube. JAXSON drain. Continue analgesics, INVESTIGATION LIEUTENANT. Currently on IV Zosyn. Abdominal fluid culture from the OR
08/05 shows polymicrobial growth, culture reviewed.
Post-Surgical Hypotension -blood pressure now improved.
-Possibly from operative blood loss anemia
-Additional PRBC transfused on 08/07/24 with Hgb<7
-Tranexamic acid 1 g on 08/07/24
-Continue IV fluids
Hyponatremia -present on admission. Sodium 132 today, will monitor. 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
Normocytic anemia -suspect inflammatory, reactive. Component of postoperative blood loss anemia noted. Has had 4 units PRBC transfused so far. Doubt iron deficiency based on labs. Hemoglobin 8.1 today, will recheck tomorrow.
Large degenerating fibroid - status post MP BSO intraoperatively on 08/05/24
-Follow-up with urogynecology outpatient (colorectal surgery discussed this with Dr. Dickson of outpatient urogynecology)
Depression
-Zoloft increased by psychiatry
-Appreciate psychiatry
Full code
Dispo -anticipate SNF on discharge.
Anticipated Discharge: > 48 hours
Subjective/Interval History
-
Date of Service: August 11, 2024
Patient seen and examined. Complaining of abdominal pain.
Objective Data
-
Labs:
Laboratory Results
08/11/24
06:02
WBC 12.0 H
Hgb 8.1 L D
Hct 24.5 L
Plt Count 206
Sodium 132 L
Potassium 4.0
Chloride 91 L
Carbon Dioxide 36 H
BUN 9
Creatinine 0.5 L
Glucose 110 H
Calcium 7.7 L
Total Bilirubin 0.2
AST 13 L
ALT 14
Alkaline Phosphatase 342 H
Vital Signs:
Vital Signs
Temp Pulse Resp BP Pulse Ox
98.7 F 97 15 105/78 95
08/11/24 07:45 08/11/24 06:00 08/11/24 06:00 08/11/24 06:00 08/11/24 06:00
I&O
08/10/24 08/11/24 08/12/24
06:59 06:59 06:59
Intake Total 2611 / 2611 984 / 984
Output Total 2280 / 2280 2125 / 2125
Balance 331 / 331 -1141 / -1141
Review of Systems
-
History Source: Patient
All other systems: Reviewed and negative
[2024-08-11] MEDS: NSS (PRESERVATIVE FREE) 10 ML IV (09:11)
[2024-08-11] MEDS: OSCAL 500 + D 500 MG PO (09:11)
[2024-08-11] MEDS: PROTONIX IV 40 MG IV (09:11)
[2024-08-11] MEDS: ZOLOFT 75 MG PO (09:11)
[2024-08-11] MEDS: LIDOCAINE 4% PATCH TOPICAL (09:11)
[2024-08-11] MEDS: MYCOSTATIN ORAL SUSPENSION PO (09:14)
--- NOTE | 2024-08-11 09:38 | W.PN.CRS1 ---
Today's Communication / Plan
-
TPN
increase LEATHER TACKER
repeat CBC at noon
Assessment/Plan
-
54-year-old, homeless, female with PMH of indeterminate colitis (first diagnosed in 2003; received 1 dose of Remicade at that time and then was treated with Asacol for 1 year; she had repeated flares in 2009, 2010 and 2011 for which she received
steroids and was switched to mesalamine derivatives; in 2019, she reports a colonoscopy for which she was told she was in remission and her medications were stopped; she was recently admitted to [facility] in June with a recurrent flare; she
was treated with IV steroids and received a dose of Remicade on 07/14; she was discharged with a steroid taper) who presented to [facility] ED on 07/26 with persistent abdominal pain and loose stools, averaging 6-10/day, since her discharge from
[facility]. 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
Initially patient declining surgery. Attempted medical management with IV steroids with some improvement; however condition declined necessitating emergent OR as pneumoperitoneum was noted.
POD 6 total abdominal colectomy with end ileostomy, IntraOp consult to ETHNOLOGY PROFESSOR who performed MP/BSO
Worsening abdominal pain on 08/09 with n/v. CT imaging repeated and consistent with ileus. NGT was place with bilious/feculent outputs noted. Some improvement in pain with NGT placement but still persistent.
Await bowel recovery
AFVSS
WBC 12.0 from 13.1
hgb 8.1 from 10.6
� NPO/NGT to wall suction
- TPN for malnutrition
- PPI for GI ppx
� Continue pain control; continue lidocaine patch, Ofirmev ATC. On a LEATHER TACKER, will increase on demand boluses given amount of pain.
� Continue IV Zosyn
� Continue DVT PPx with Lovenox
� Appreciate hospitalist
- Repeat CBC at noon
Subjective Data
Procedure
08/05/24 Ex lap with total abdominal colectomy with end-ileostomy and MP BSO
Subjective Data
Date of Service: August 11, 2024
Patient states she is still in a lot of pain. She is sleeping and does not want to talk. Her throat hurts from the NGT.
Objective Data
-
Vital Signs
Temp Pulse Resp BP Pulse Ox
98.7 F 97 15 105/78 95
08/11/24 07:45 08/11/24 06:00 08/11/24 06:00 08/11/24 06:00 08/11/24 06:00
Intake & Output
08/10/24 08/11/24 08/12/24
06:59 06:59 06:59
Intake Total 2611 / 2611 984 / 984
Output Total 2280 / 2280 2125 / 2125
Balance 331 / 331 -1141 / -1141
Intake:
Oral fluids 0 / 0 0 / 0
IV fluids (Total) 1000 / 1000
IV piggybacks 350 / 350 300 / 300
TPN/PPN 1081 / 1081 564 / 564
Amount instilled into GI Tube ( 180 / 180 120 / 120
Total)
[place] Sump 180 / 180 120 / 120
Output:
Liquid stool amount 150 / 150 200 / 200
Ileostomy 150 / 150 200 / 200
Drain Output (Total) 80 / 80 50 / 50
Left Lower Abdomen [place]- 80 / 80 50 / 50
[place]
Gastrointestinal tube output ( 1200 / 1200 350 / 350
Total)
[place] Sump 1200 / 1200 350 / 350
Urine, Voided 850 / 850 1525 / 1525
Other:
Number of approximated MODERATE 1 1
amounts of urine
Number of approximated LARGE 1 1
amounts of urine
Number of unmeasured liquid
stools
Ileostomy 1
Lab Results
08/11/24 06:02
Physical Exam
-
General: No Acute Distress and AOx3
Abdomen: Soft, Non Distended, Tender and Other (ileostomy warm and pink with output, JAXSON drain serous)
Wound: Dressing in Place
--- NOTE | 2024-08-11 09:52 | WOUNDNOTE ---
WO RN note: Patient admitted with acute on chronic RLE wound infection. 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 He hasn't been at [facility] in 2 months. He had a biopsy from dermatology just prior to admission. He is allergic to
petroleum. He wears compression stockings and uses LE compression pumps at home.
See H&P for complete history.
PMH: venous insufficiency with chronic R medial ankle ulcer, Vein procedures in [place], DVT, a fib (Eliquis), hypercoagulable state, L THR 02/2024, skin cancer removal RLE, HTN, CVA.
Wound Location and type/assessment: Patient admitted with: Full thickness to subcutaneous layer venous stasis ulcer R medial ankle. R inferior ankle and posterior ankle dry pink dermal venous ulcers. Moderate serous drainage from R medial ankle
wound. Venous ultrasound: RLE-no acute DVT RLE, chronic non occlusive R calf DVT). Patient on Eliquis. Mild MASD groin folds and sacral crease. Patient denies latex allergy.
Appetite: good.
Pressure redistribution devices in place: [employer] Accumax. Patient turns self in bed and is ambulatory.
Plan: R ankle dressing changed. Bilateral knee high Navi wraps applied. Instructed patient to ambulate more at home throughout the day instead of sitting at his work desk for hours at a time. Instructed LE elevation. Suggested he follow up with a
wound care center to evaluate for weekly or biweekly multilayer compression wraps.
Updated Dr. Pickett and Dr. Lewis. Dr. Pickett approved local skin/wound care, bilateral knee high Navi with Tubigrip on top and knee high SCD's 2 hours bid.
Care plan to be updated and will follow as needed.
Recommend follow up at a wound care center upon discharge.
[2024-08-11 12:28] LABS: Glucose - Point of Care 114 mg/dl (70-99)
[2024-08-11 12:29] LABS: Hematocrit 25.9 % (37.0-47.0); Hemoglobin 8.6 g/dL (12.0-16.0); Mean Corp Hgb Conc. 33.2 g/dL (33.0-37.0); Mean Corpuscular Hgb 29.9 pg (27.0-31.0); Mean Corpuscular Volume 89.9 fL (81.0-99.0); Mean Platelet Volume 9.4 fL (7.4-10.4); Platelet Count 220 10^3/uL (130-400); Red Blood Cell Count 2.88 10^6/uL (4.20-5.40); Red Cell Dist. Width 15.4 % (11.5-14.5)
--- NOTE | 2024-08-11 14:00 | WOUNDNOTE ---
WO RN note: Patient on TPN. NG tube in place. Stoma pink and slightly budded and oval shaped. Peristomal skin intact. Ileostomy functioning for liquid brown effluent. Instructed patient, brother Zi and Sister in law Melissa how to empty and change
pouch using Pete wafer # [id number], Flora seal and Morse pouch # [id number]. Ostomy supplies in room including 2 1/4 inch Morse 2 piece appliances. L coccyx/buttocks with linear irregular shaped dermal opening suspect r/t friction and possibly
an open small herpetic lesion. Silicone border foam applied. Heels off bed with pillow. Patient can turn self in bed. Ileostomy teaching folder in room. Sister in law confirmed she received the Feedgen ostomy secure starter kit. Next appliance
change due .
--- NOTE | 2024-08-11 16:16 | PTCARENOTE ---
Patient withdrawn, sad, tearful throughout shift. Emotional with family members that visited. family present for WOCN ileostomy education. SOFTWARE IMPLEMENTATION PROJECT MANAGER infusing at increased rate. Patient comfortable. RA, 96%. TPN infusing per orders. MD notified of temp of
100.3 before last IV tylenol dose. Removed heating pad from patient. All other VSS. Encouraging IS. All dressings CDI. JAXSON drain CDI. NGT to suction. Continuing to closely monitor.
[2024-08-11 16:46] LABS: Glucose - Point of Care 123 mg/dl (70-99)
--- NOTE | 2024-08-11 17:22 | CM ---
Patient who is homeless with Dx Pneumoperitoneum (suspected perforated colon) on 08/05 s/p total abdominal colectomy with end-ileostomy, anemia s/p transfusions. Room air. NPO/NGT. Receiving TPN, IV Abx, Dilaudid PUMPER BREWERY. JAXSON drain. Seen by wound
care/ostomy nurse. Seen by Psych. PT/OT recommend skilled rehab.
SNF referral updated in [facility].
[facility]: [facility] for report [phone], fax [phone].
Plan [facility] when medically ready.
[2024-08-11] MEDS: LOVENOX 40 MG SC (17:45)
[2024-08-11] MEDS: XANAX 0.25 MG PO (21:05)
[2024-08-11] MEDS: Parenteral Nutrition, Central 1120 IV (21:07)
[2024-08-12] VITALS (11 sets, daily range): BP systolic 102–125; BP diastolic 68–88; BMI 23.2
[2024-08-12 00:10] LABS: Glucose - Point of Care 129 mg/dl (70-99)
[2024-08-12] MEDS: DILAUDID PCA 30 IV (00:48)
--- NOTE | 2024-08-12 02:50 | PTCARENOTE ---
Pt appearing to be in pleasant mood. Pt sharing that she had family here today and that made her feel better. Pt NG not having out put during day shift, amount close to flush amount for nights. Pt QUALITY FACILITATOR amount changed, when asked if she is getting
pain relief Pt said ' its better'. Pt call quiñones and QUALITY FACILITATOR button within reach. Bed alarm on. Assessment care and vitals as charted.
[2024-08-12] MEDS: ZOSYN 50 IV ×4 (05:23→23:41)
[2024-08-12 05:38] LABS: Glucose - Point of Care 110 mg/dl (70-99)
[2024-08-12] MEDS: NOVOLOG FLEXPEN-LOW RESISTANCE SC ×4 (05:47→23:44)
[2024-08-12 06:08] LABS: % Basophils 0.3 % (0-2); % Eosinophils 0.3 % (0-6); % Immature Granulocytes 4.4 % (0-0.5); % Lymphocytes 9.6 % (20.5-51.1); % Monocytes 2.5 % (1.7-9.3); % Neutrophils 82.9 % (42.2-75.2); Absolute Immature Granulocytes 0.5 10^3/uL (0-0.05); Absolute Lymphocytes 1.1 10^3/uL (1.2-3.4); Absolute Monocytes 0.3 10^3/uL (0.1-0.6); Absolute Neutrophils 9.7 10^3/uL (1.4-6.5); Hematocrit 24.4 % (37.0-47.0); Mean Corp Hgb Conc. 32.8 g/dL (33.0-37.0); Mean Corpuscular Hgb 28.4 pg (27.0-31.0); Mean Corpuscular Volume 86.5 fL (81.0-99.0); Mean Platelet Volume 9.6 fL (7.4-10.4); Nucleated Red Blood Cells % 0 %; Platelet Count 228 10^3/uL (130-400); Red Blood Cell Count 2.82 10^6/uL (4.20-5.40); Red Cell Dist. Width 15.5 % (11.5-14.5); White Blood Cell Count 11.7 10^3/uL (4.8-10.8)
[2024-08-12] MEDS: LIDOCAINE 4% PATCH TOPICAL (08:37)
--- NOTE | 2024-08-12 08:45 | W.PN.CRS1 ---
Today's Communication / Plan
-
as below
Assessment/Plan
-
54-year-old, homeless, female with PMH of indeterminate colitis (first diagnosed in 2003; received 1 dose of Remicade at that time and then was treated with Asacol for 1 year; she had repeated flares in 2009, 2010 and 2011 for which she received
steroids and was switched to mesalamine derivatives; in 2018, she reports a colonoscopy for which she was told she was in remission and her medications were stopped; she was recently admitted to [facility] in June with a recurrent flare; she
was treated with IV steroids and received a dose of Remicade on 07/14; she was discharged with a steroid taper) who presented to [facility] on 07/26 with persistent abdominal pain and loose stools, averaging 6-10/day, since her discharge from
[facility]. 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 Her CRP was 121, albumin 2.5. She was treated with IV steroids and transitioned to oral. While admitted, her abdominal pain seemed to get worse over the following 3 to [address]
showed worsening colonic distention (transverse at 6 cm, cecum at 8 cm) with gradual tapering toward the sigmoid, concerning for a colonic ileus. A CRP was greater than 270. Her HR increased to 120s and pain was 10/10. CRS was consulted on 08/01.
-She was offered surgery but she wanted to exhaust non-operative measures. She was switched back to IV steroids and improved
-On 08/05, and AXR was done which showed pneumoperitoneum, consistent with perforation; she was taken for emergency surgery
POD 6 total abdominal colectomy with end ileostomy, intraOp consult to LOTTERY SALES CLERK who performed MP/BSO
-POD 4, developed nausea/vomiting, CT showing postoperative changes with ileus; NGT was placed
AFVSS
WBC 11.7 from 14.0, Hb 8.0 from 8.6 (trend stable), UOP 1.0 L
�New onset low-grade fevers with mild tachycardia
�Will send for fever workup, including BCx, CXR, UA and duplex
�Having ostomy function abdominal exam is stable; pending above workup, low threshold for repeat CTAP with p.o./IV/rectal contrast
�Continue n.p.o. with NGT
�Cont TPN for malnutrition
�Cont IVF at 50/hr for total of 100mL/hour of total fluids
� Continue pain control; continue Dilaudid REACTOR SERVICE OPERATOR
�Will monitor for overall narcotic requirement
� Off steroids; depending on Crohn's versus UC, will possibly need maintenance medication; appreciate GI
� Continue IV Zosyn for 7 days postoperatively; pending above work-up, will likely need to continue beyond 7 days postop
� Continue DVT PPx with Lovenox
� Appreciate hospitalist
Subjective Data
Procedure
08/05/24 Ex lap with total abdominal colectomy with end-ileostomy and MP BSO
Subjective Data
Date of Service: August 12, 2024
States she feels better today, pain better controlled. Denies N/V.
Having some discomfort with the NGT, improved with the Chloraseptic spray.
Denies SOB/CP. Denies cough/congestion.
+ Ostomy function (some flatus and stool in bag) + voiding
Patient was OOB yesterday to hallway in chair
Objective Data
-
Vital Signs
Temp Pulse Resp BP Pulse Ox
100.9 F H 111 20 118/85 96
08/12/24 07:44 08/12/24 06:00 08/12/24 06:00 08/12/24 06:00 08/12/24 05:42
Intake & Output
08/11/24 08/12/24 08/13/24
06:59 06:59 06:59
Intake Total 984 / 984 120 / 120
Output Total 2125 / 2125 1300 / 1300
Balance -1141 / -1141 -1180 / -1180
Intake:
Oral fluids 0 / 0
IV piggybacks 300 / 300
TPN/PPN 564 / 564
Amount instilled into GI Tube ( 120 / 120 120 / 120
Total)
[place] Sump 120 / 120 120 / 120
Output:
Liquid stool amount 200 / 200 225 / 225
Ileostomy 200 / 200 225 / 225
Drain Output (Total) 50 / 50 20 / 20
Left Lower Abdomen Kennedy- 50 / 50 20 / 20
Kern
Gastrointestinal tube output ( 350 / 350 5 / 5
Total)
[place] Sump 350 / 350 5 / 5
Urine, Voided 1525 / 1525 1050 / 1050
Other:
Number of approximated MODERATE 1 1 1
amounts of urine
Number of approximated LARGE 1 1
amounts of urine
How many times incontinent 1
MODERATE amount urine
Number of unmeasured liquid
stools
Ileostomy 1
Lab Results
08/12/24 05:31
08/11/24 06:02
Physical Exam
-
General: No Acute Distress and AOx3
HEENT: Grossly Normal
Chest: Other (No increased work of breathing)
Abdomen: Soft, Non Distended, Tender (Mildly diffusely tender (stable)), No Guarding, No Rebound and Other (Midline incision approximated with intermittent lisandra, intermittent gaps clean without purulent drainage or surrounding erythema; ostomy
pink and productive of stool; JAXSON-20 mL serous)
Neurological: No Motor Deficits
Skin: Warm and Dry
Wound: No Signs of Infection and No Skin Erythema
--- NOTE | 2024-08-12 08:48 | W.PN.HOSP.TC ---
Today's Communication/Plan
-
Sepsis workup
Assessment / Plan
Assessment / Plan
Gen-AAOx3, NAD
HEENT-NC, AT, anicteric, clear oral mm, no evidence of oral thrush
Neck-supple
CV-reg, no M, +S1/S2
Lungs-clear B/L
Abd-soft, NT, ND, ostomy intact, abdominal dressing with drain
Ext-no edema
Musculoskeletal-no cyanosis, clubbing
Skin-warm and dry
Neuro-grossly non-focal
Psych-calm, cooperative
Sepsis -fever started 08/11. Mild leukocytosis. Tachycardia. Check COVID antigen, if negative check blood cultures. Currently on IV Zosyn.
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 Given dose of Remicade in [facility] late June, discharged with prescription for mesalamine that she did not fill. Steroid taper.
Still complaining of significant abdominal pain. However, she does look comfortable.
Pneumoperitoneum -underwent total abdominal colectomy with end ileostomy 08/05. Currently n.p.o., getting TPN for postoperative ileus. NG tube. JAXSON drain. Continue analgesics, PAINT LABORATORY TECHNICIAN. Currently on IV Zosyn. Abdominal fluid culture from the OR
08/05 shows polymicrobial growth, culture reviewed.
Post-Surgical Hypotension -blood pressure now improved.
-Possibly from operative blood loss anemia
-Additional PRBC transfused on 08/07/24 with Hgb<7
-Tranexamic acid 1 g on 08/07/24
-Continue IV fluids
Hyponatremia -present on admission. Sodium 132, will monitor. 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
Normocytic anemia -suspect inflammatory, reactive. Component of postoperative blood loss anemia noted. Has had 4 units PRBC transfused so far. Doubt iron deficiency based on labs. Hemoglobin 8.0 today, will recheck tomorrow.
Large degenerating fibroid - status post MP BSO intraoperatively on 08/05/24
-Follow-up with urogynecology outpatient (colorectal surgery discussed this with Dr. Dickson of outpatient urogynecology)
Depression
-Zoloft increased by psychiatry
-Appreciate psychiatry
Full code
Dispo -anticipate SNF on discharge.
Anticipated Discharge: > 48 hours
Subjective/Interval History
-
Date of Service: August 12, 2024
Patient seen and examined. Complaining of abdominal pain.
Objective Data
-
Labs:
Laboratory Results
08/12/24
05:31
WBC 11.7 H
Hgb 8.0 L
Hct 24.4 L
Plt Count 228
Vital Signs:
Vital Signs
Temp Pulse Resp BP Pulse Ox
100.9 F H 111 20 118/85 96
08/12/24 07:44 08/12/24 06:00 08/12/24 06:00 08/12/24 06:00 08/12/24 05:42
I&O
08/11/24 08/12/24 08/13/24
06:59 06:59 06:59
Intake Total 984 / 984 120 / 120
Output Total 2125 / 2125 1300 / 1300
Balance -1141 / -1141 -1180 / -1180
Review of Systems
-
History Source: Patient
All other systems: Reviewed and negative
[2024-08-12] MEDS: ZOLOFT 75 MG PO (08:52)
[2024-08-12] MEDS: PROTONIX IV 40 MG IV (08:52)
[2024-08-12] MEDS: OSCAL 500 + D 500 MG PO (08:52)
[2024-08-12] MEDS: NSS (PRESERVATIVE FREE) 10 ML IV (08:53)
[2024-08-12 09:18] LABS: Urine Albumin Trace (Neg - Trace); Urine Bilirubin Negative (Negative); Urine Character Clear (Clear); Urine Color Yellow; Urine Glucose Negative (Negative); Urine Ketone Negative (Negative); Urine Leukocyte Trace (Negative); Urine Nitrite Negative (Negative); Urine Occult Blood Negative (Negative); Urine Urobilinogen Negative (Neg - 1+)
[2024-08-12 09:23] LABS: Urine Red Blood Cell 0-2 /HPF (0-2)
[2024-08-12 09:41] LABS: COVID-19 Antigen Negative (Negative)
[2024-08-12] MEDS: NSS 1000 IV (10:06)
[2024-08-12] MEDS: OFIRMEV 100 IV ×2 (10:24→19:55)
--- NOTE | 2024-08-12 10:46 | PTCARENOTE ---
second set of cultures drawn from picc line as requested by GI surgery. tylenol given for fever.
[2024-08-12 12:52] LABS: Glucose - Point of Care 133 mg/dl (70-99)
--- NOTE | 2024-08-12 13:35 | CS.PSYCHR ---
Addendum entered and electronically signed by Mehdi Orta MD 08/12/24 15:57:
Update Note- erroneously entered under 'Medical Consultation'
Original Note:
Consult Summary - Psychiatry
-
Pt seen, resting calmly, affect dysphoric, somewhat flat. Pt states she had an unexpected surgery that she is not happy about (had total colectomy 08/05). Zoloft was increased from 50 mg to 75 mg daily starting on 08/11 (day #2). Pt has had
several complications, now fever. Sodium last checked yest 08/11- was 132.
Imp: Unspecified depressive d/o
Rec: continue trial of increased Zoloft, will take several weeks for full benefit; need to monitor Sodium level
will follow
[2024-08-12] MEDS: TUMS CHEWABLE TABLET 400 MG PO ×2 (18:07→22:16)
[2024-08-12] MEDS: LOVENOX 40 MG SC (18:07)
[2024-08-12 18:39] LABS: Glucose - Point of Care 100 mg/dl (70-99)
[2024-08-12] MEDS: ZOFRAN 4 MG IV (19:55)
--- NOTE | 2024-08-12 20:00 | PTCARENOTE ---
Pt with a 101 temp, KRYSTAL Bloom notified, Ofirmev x1 ordered (see MAR).
[2024-08-12] MEDS: Parenteral Nutrition, Central 1120 IV (21:48)
[2024-08-12 23:51] LABS: Glucose - Point of Care 124 mg/dl (70-99)
[2024-08-13] VITALS (16 sets, daily range): BP systolic 91–141; BP diastolic 64–129; PULSE 91; O2SAT 93–95; BMI 22.5
[2024-08-13] MEDS: ZOSYN 50 IV ×4 (05:14→23:20)
[2024-08-13] MEDS: NOVOLOG FLEXPEN-LOW RESISTANCE SC ×4 (05:14→23:19)
[2024-08-13 05:24] LABS: Glucose - Point of Care 110 mg/dl (70-99)
--- NOTE | 2024-08-13 08:21 | W.PN.HOSP.TC ---
Today's Communication/Plan
-
Continue current care
Assessment / Plan
Assessment / Plan
Gen-AAOx3, NAD
HEENT-NC, AT, anicteric, clear oral mm, no evidence of oral thrush, NG tube in place
Neck-supple
CV-reg, no M, +S1/S2
Lungs-clear B/L
Abd-soft, NT, ND, ostomy intact, abdominal dressing with drain
Ext-no edema
Musculoskeletal-no cyanosis, clubbing
Skin-warm and dry
Neuro-grossly non-focal
Psych-calm, cooperative
Sepsis -fever started 08/11. Mild leukocytosis. Tachycardia. Workup for fever so far negative. Blood cultures pending. Doppler ultrasound lower extremities negative. Would repeat CT abdomen/pelvis, discussed with colorectal surgery. Remains
on IV Zosyn.
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 Given dose of Remicade in [facility] late June, discharged with prescription for mesalamine that she did not fill, and Steroid taper.
Still complaining of significant abdominal pain. However, she does look comfortable. Remains on Dilaudid VULCANIZER OPERATOR, used 10 mg over the past 12 hours.
Pneumoperitoneum -underwent total abdominal colectomy with end ileostomy 08/05. Currently n.p.o., getting TPN for postoperative ileus. NG tube. JAXSON drain. Continue analgesics, VULCANIZER OPERATOR. Currently on IV Zosyn. Abdominal fluid culture from the OR
08/05 shows polymicrobial growth, culture reviewed.
Post-Surgical Hypotension -blood pressure now improved.
-Possibly from operative blood loss anemia
-Additional PRBC transfused on 08/07/24 with Hgb<7
-Tranexamic acid 1 g on 08/07/24
-Continue IV fluids
Hyponatremia -present on admission. Sodium 132, will monitor. 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
Normocytic anemia -suspect inflammatory, reactive. Component of postoperative blood loss anemia noted. Has had 4 units PRBC transfused so far. Doubt iron deficiency based on labs. Hemoglobin 8.0, will recheck tomorrow.
Large degenerating fibroid - status post MP BSO intraoperatively on 08/05/24
-Follow-up with urogynecology outpatient (colorectal surgery discussed this with Dr. Dickson of outpatient urogynecology)
Depression
-Zoloft increased by psychiatry
-Appreciate psychiatry
Full code
Dispo -anticipate SNF on discharge.
Anticipated Discharge: > 48 hours
Subjective/Interval History
-
Date of Service: August 13, 2024
Patient seen and examined. Abdominal pain is stable, unchanged over 48 hours. Mild nausea. Mild headache, denies neck pain.
Objective Data
-
Vital Signs:
Vital Signs
Temp Pulse Resp BP Pulse Ox
100.6 F H 117 15 116/64 90
08/13/24 07:30 08/13/24 06:00 08/13/24 06:00 08/13/24 06:00 08/13/24 06:00
I&O
08/12/24 08/13/24 08/14/24
06:59 06:59 06:59
Intake Total 120 / 120 2989.2 / 2989.2
Output Total 1300 / 1300 620 / 620
Balance -1180 / -1180 2369.2 / 2369.2
Review of Systems
-
History Source: Patient
All other systems: Reviewed and negative
[2024-08-13] MEDS: ZOLOFT 75 MG PO (08:32)
[2024-08-13] MEDS: NSS 1000 IV (08:32)
[2024-08-13] MEDS: OSCAL 500 + D 500 MG PO (08:32)
[2024-08-13] MEDS: NSS (PRESERVATIVE FREE) 10 ML IV (08:32)
[2024-08-13] MEDS: PROTONIX IV 40 MG IV (08:33)
[2024-08-13] MEDS: LIDOCAINE 4% PATCH TOPICAL (08:33)
[2024-08-13] MEDS: DILAUDID 1 MG IV ×7 (09:44→22:36)
--- NOTE | 2024-08-13 09:45 | W.PN.CRS1 ---
Today's Communication / Plan
-
tpn
d/c seismometer operator
ct a/p if continues to spike temps
Assessment/Plan
-
54-year-old female with PMH of indeterminate colitis (first diagnosed in 2003; received 1 dose of Remicade at that time and then was treated with Asacol for 1 year; she had repeated flares in 2009, 2010 and 2011 for which she received steroids and
was switched to mesalamine derivatives; in 2019, she reports a colonoscopy for which she was told she was in remission and her medications were stopped; she was recently admitted to [facility] in June with a recurrent flare; she was treated
with IV steroids and received a dose of Remicade on 07/14; she was discharged with a steroid taper) who presented to [place] ED on 07/26 with persistent abdominal pain and loose stools, averaging 6-10/day, since her discharge from [facility].
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
Initially patient declining surgery. Attempted medical management with IV steroids with some improvement; however condition declined necessitating emergent OR as pneumoperitoneum was noted.
POD 8 total abdominal colectomy with end ileostomy, IntraOp consult to SOCIAL WORKER CLINICAL who performed MP/BSO
Worsening abdominal pain on 08/09 with n/v. CT imaging repeated and consistent with ileus. NGT was place with bilious/feculent outputs noted. Some improvement in pain with NGT placement but still persistent.
Await bowel recovery
08/12- fever workup negative
Tmax 101.1
no labs
� NPO/NGT to wall suction - will consider clamping later depending on output
- TPN for malnutrition
- PPI for GI ppx
� Continue pain control; continue lidocaine patch, Ofirmev IV. D/C WAFER LINE WORKER, Dilaudid PRN.
� Continue IV Zosyn
� Continue DVT PPx with Lovenox
� Appreciate hospitalist
- If continues to spike temps, will order CT A/P with oral/IV/rectal contrast
Subjective Data
Procedure
08/05/24 Ex lap with total abdominal colectomy with end-ileostomy and MP BSO
Subjective Data
Date of Service: August 13, 2024
Patient states she does not have that much pain. She has no nausea or vomiting. She is not that hungry. The NGT is bothering her.
Objective Data
-
Vital Signs
Temp Pulse Resp BP Pulse Ox
100.6 F H 117 15 116/64 90
08/13/24 07:30 08/13/24 06:00 08/13/24 06:00 08/13/24 06:00 08/13/24 06:00
Intake & Output
08/12/24 08/13/24 08/14/24
06:59 06:59 06:59
Intake Total 120 / 120 2989.2 / 2989.2
Output Total 1300 / 1300 620 / 620
Balance -1180 / -1180 2369.2 / 2369.2
Intake:
Oral fluids 50 / 50
IV fluids (Total) 1060 / 1060
IV piggybacks 300 / 300
TPN/PPN 1369.2 / 1369.2
Amount instilled into GI Tube ( 120 / 120 210 / 210
Total)
Ravalli Sump 120 / 120 210 / 210
Output:
Liquid stool amount 225 / 225 200 / 200
Ileostomy 225 / 225 200 / 200
Drain Output (Total) 20 15 /
Left Lower Abdomen Kennedy-
Kern
Gastrointestinal tube output ( 105 / 105
Total)
Ravalli Sump / 105 / 105
Urine, Voided 1050 / 1050 300 / 300
Other:
Number of approximated MODERATE 1 1
amounts of urine
Number of approximated LARGE 1 1
amounts of urine
How many times incontinent 1
MODERATE amount urine
Lab Results
08/12/24 05:31
08/11/24 06:02
Physical Exam
-
General: No Acute Distress and AOx3
Abdomen: Soft, Non Distended, Tender (around incision) and Other (ileostomy warm and pink)
Skin: Warm and Dry
Incision: Clear, Dry, Intact
[2024-08-13] MEDS: OFIRMEV 100 IV ×3 (09:48→22:29)
[2024-08-13] MEDS: ZOFRAN 4 MG IV ×2 (11:05→18:40)
[2024-08-13] MEDS: CHLORASEPTIC/SORE THROAT SPRAY 1 SPRAY PO (11:49)
[2024-08-13 12:12] LABS: Glucose - Point of Care 145 mg/dl (70-99)
--- NOTE | 2024-08-13 12:45 | CM ---
Patient seen at bedside, NG tube in place. Patient c/o she does not feel well at this time. CM will continue to follow for discharge planning needs.
Plan; SNF; [facility] pending bed per chart notes will need Auth
--- NOTE | 2024-08-13 12:51 | W.PN.UPDATE ---
Update Note
Progress Note Update
reviewed chart. spoke to nursing. attempted to speak to patient but she does not feel she needs to speak with psychiatry and requests to be removed from our list. psych will sign off. would suggest continuing w zoloft . current dose is 75. it
could be increased gradually depending on response. i mentioned it to her but she seemed indifferent to its use. it is too early to see significant response. she does seem anxious and depressed but it would be natural given such life altering
surgery that she would be in a period of adjustment. she is NOT suicidal. psych signing off at patient request.
[2024-08-13] MEDS: TUMS CHEWABLE TABLET 400 MG PO ×2 (14:40→18:40)
[2024-08-13] MEDS: LOVENOX 40 MG SC (17:54)
[2024-08-13 18:06] LABS: Glucose - Point of Care 138 mg/dl (70-99)
[2024-08-13] MEDS: XANAX 0.25 MG PO (20:36)
[2024-08-13] MEDS: Parenteral Nutrition, Central 1120 IV (20:37)
[2024-08-13 23:20] LABS: Glucose - Point of Care 121 mg/dl (70-99)
[2024-08-14] VITALS (11 sets, daily range): BP systolic 100–127; BP diastolic 76–88
[2024-08-14] MEDS: DILAUDID 1 MG IV ×10 (00:52→22:07)
[2024-08-14] MEDS: ZOFRAN 4 MG IV ×3 (00:58→21:23)
[2024-08-14] MEDS: OFIRMEV 100 IV ×3 (03:43→23:29)
[2024-08-14 04:35] LABS: % Basophils 0.3 % (0-2); % Eosinophils 0.4 % (0-6); % Lymphocytes 12.4 % (20.5-51.1); % Monocytes 3.6 % (1.7-9.3); % Neutrophils 81.3 % (42.2-75.2); Absolute Immature Granulocytes 0.2 10^3/uL (0-0.05); Absolute Lymphocytes 1.4 10^3/uL (1.2-3.4); Absolute Monocytes 0.4 10^3/uL (0.1-0.6); Absolute Neutrophils 8.9 10^3/uL (1.4-6.5); Hematocrit 23.8 % (37.0-47.0); Hemoglobin 7.8 g/dL (12.0-16.0); Mean Corp Hgb Conc. 32.8 g/dL (33.0-37.0); Mean Corpuscular Hgb 28.2 pg (27.0-31.0); Mean Corpuscular Volume 85.9 fL (81.0-99.0); Mean Platelet Volume 9.7 fL (7.4-10.4); Nucleated Red Blood Cells % 0 %; Platelet Count 265 10^3/uL (130-400); Red Blood Cell Count 2.77 10^6/uL (4.20-5.40); Red Cell Dist. Width 15.3 % (11.5-14.5); White Blood Cell Count 10.9 10^3/uL (4.8-10.8)
[2024-08-14 04:54] LABS: ALT (SGPT) 17 U/L (0-35); AST (SGOT) 22 U/L (14-36); Albumin 2.2 g/dl (3.5-5.0); Alkaline Phosphatase 450 U/L (38-126); Blood Urea Nitrogen 11 mg/dl (7-17); Calcium 7.7 mg/dl (8.4-10.2); Carbon Dioxide 27 mmol/L (22-30); Chloride 98 mmol/L (98-107); Estimated Creatinine Clearance 104 ml/min; Glucose 120 mg/dl (70-99); Potassium 4.5 mmol/L (3.5-5.1); Sodium 133 mmol/L (135-145); Total Bilirubin 0.1 mg/dl (0.2-1.3); Total Protein 4.5 g/dl (6.3-8.2); eGFR > 60.00
[2024-08-14] MEDS: ZOSYN 50 IV ×4 (05:02→23:39)
[2024-08-14] MEDS: NOVOLOG FLEXPEN-LOW RESISTANCE SC ×3 (05:03→19:28)
[2024-08-14 05:14] LABS: Glucose - Point of Care 134 mg/dl (70-99)
[2024-08-14] MEDS: XANAX 0.25 MG PO ×2 (06:07→21:23)
[2024-08-14] MEDS: LIDOCAINE 4% PATCH TOPICAL (08:16)
--- NOTE | 2024-08-14 08:16 | W.PN.HOSP.TC ---
Today's Communication/Plan
-
Trend hemoglobin
Continue analgesics
Assessment / Plan
Assessment / Plan
Gen-AAOx3, NAD
HEENT-NC, AT, anicteric, clear oral mm, no evidence of oral thrush, NG tube in place
Neck-supple
CV-reg, no M, +S1/S2
Lungs-clear B/L
Abd-soft, NT, ND, ostomy intact, abdominal dressing with drain
Ext-no edema
Musculoskeletal-no cyanosis, clubbing
Skin-warm and dry
Neuro-grossly non-focal
Psych-calm, cooperative
Sepsis -fever started 08/11. WBCs trending down. Tachycardia. Workup for fever so far negative. Fever resolved. Blood cultures negative so far. Doppler ultrasound lower extremities negative. Colorectal surgery wants to hold off on repeating
CT scan for now. Continue IV Zosyn.
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 Given dose of Remicade in [facility] late June, discharged with prescription for mesalamine that she did not fill, and Steroid taper.
Still complaining of significant abdominal pain. However, she does look comfortable. Dilaudid RN OFFICE discontinued, getting IV Dilaudid as needed. IV Tylenol [id number]. Has received 10 mg of IV Dilaudid over the past 24 hours.
Pneumoperitoneum -underwent total abdominal colectomy with end ileostomy 08/05. Currently n.p.o., getting TPN for postoperative ileus. NG tube. JAXSON drain. Continue analgesics, RN OFFICE. Currently on IV Zosyn. Abdominal fluid culture from the OR
08/05 shows polymicrobial growth, culture reviewed. Ileostomy with output.
Post-Surgical Hypotension -blood pressure now improved.
-Possibly from operative blood loss anemia
-Additional PRBC transfused on 08/07/24 with Hgb<7
-Tranexamic acid 1 g on 08/07/24
-Continue IV fluids
Hyponatremia -present on admission. Sodium 132, will monitor. 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
Normocytic anemia -suspect inflammatory, reactive. Component of postoperative blood loss anemia noted. Has had 4 units PRBC transfused so far, last transfusion 08/07. Doubt iron deficiency based on labs. Hemoglobin 7.8 this morning, will
monitor. Slowly trending down.
Large degenerating fibroid - status post MP BSO intraoperatively on 08/05/24
-Follow-up with urogynecology outpatient (colorectal surgery discussed this with Dr. Dickson of outpatient urogynecology)
Depression
-Zoloft increased by psychiatry
-Appreciate psychiatry
Full code
Dispo -anticipate SNF on discharge.
Anticipated Discharge: > 48 hours
Subjective/Interval History
-
Date of Service: August 14, 2024
Patient seen and examined. Complaining of 9 out of 10 pain.
Objective Data
-
Labs:
Laboratory Results
08/14/24
04:09
WBC 10.9 H
Hgb 7.8 L
Hct 23.8 L
Plt Count 265
Sodium 133 L
Potassium 4.5
Chloride 98
Carbon Dioxide 27
BUN 11
Creatinine 0.4 L
Glucose 120 H
Calcium 7.7 L
Total Bilirubin 0.1 L
AST 22
ALT 17
Alkaline Phosphatase 450 H
Vital Signs:
Vital Signs
Temp Pulse Resp BP Pulse Ox
99.1 F 101 20 116/76 95
08/13/24 23:23 08/14/24 04:00 08/14/24 04:00 08/14/24 00:00 08/13/24 14:00
I&O
08/13/24 08/14/24 08/15/24
06:59 06:59 06:59
Intake Total 2989.2 / 2989.2 1650 / 1650
Output Total 620 / 620 2360 / 2360
Balance 2369.2 / 2369.2 -710 / -710
Review of Systems
-
History Source: Patient
All other systems: Reviewed and negative
[2024-08-14] MEDS: NSS (PRESERVATIVE FREE) 10 ML IV (08:17)
[2024-08-14] MEDS: PROTONIX IV 40 MG IV (08:18)
[2024-08-14] MEDS: OSCAL 500 + D 500 MG PO (08:18)
[2024-08-14] MEDS: ZOLOFT 75 MG PO (08:19)
--- NOTE | 2024-08-14 08:35 | W.PN.CRS1 ---
Today's Communication / Plan
-
As below
Assessment/Plan
-
54-year-old, homeless, female with PMH of indeterminate colitis (first diagnosed in 2003; received 1 dose of Remicade at that time and then was treated with Asacol for 1 year; she had repeated flares in 2009, 2010 and 2011 for which she received
steroids and was switched to mesalamine derivatives; in 2018, she reports a colonoscopy for which she was told she was in remission and her medications were stopped; she was recently admitted to [facility] in June with a recurrent flare; she
was treated with IV steroids and received a dose of Remicade on 07/14; she was discharged with a steroid taper) who presented to [place] ED on 07/26 with persistent abdominal pain and loose stools, averaging 6-10/day, since her discharge from
[facility]. 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 Her CRP was 121, albumin 2.5. She was treated with IV steroids and transitioned to oral. While admitted, her abdominal pain seemed to get worse over the following 3 to [address]
showed worsening colonic distention (transverse at 6 cm, cecum at 8 cm) with gradual tapering toward the sigmoid, concerning for a colonic ileus. A CRP was greater than 270. Her HR increased to 120s and pain was 10/10. CRS was consulted on 08/01.
-She was offered surgery but she wanted to exhaust non-operative measures. She was switched back to IV steroids and improved
-On 08/05, and AXR was done which showed pneumoperitoneum, consistent with perforation; she was taken for emergency surgery
POD 8 total abdominal colectomy with end ileostomy, intraOp consult to LEAD WELDER who performed MP/BSO
-POD 4, developed nausea/vomiting, CT showing postoperative changes with ileus; NGT was placed
AFVSS (HR 90s�100s)
WBC 10.9 from 11.7, Hb 7.8 from 8.0
�New onset low-grade fevers with mild tachycardia, improving
�Duplex negative, chest x-ray negative for pneumonia, UA negative; blood cultures�NGTD
�Having ostomy function abdominal exam is stable; hold off on repeat CT
�Continue n.p.o. with NGT
�Cont TPN for malnutrition
�Low threshold to restart IVF as she is only getting 50 mL/hr, maintenance for her weight should be 70/hr; monitor BMP daily
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
�Will monitor for overall narcotic requirement; will need long-term pain management with extended release coverage due to tolerance
� Off steroids; depending on Crohn's versus UC, will possibly need maintenance medication; appreciate GI
� Continue IV Zosyn; plan for 10 to 14-day course, pending cultures
� Continue DVT PPx with Lovenox
� Appreciate hospitalist
Subjective Data
Procedure
08/05/24 Ex lap with total abdominal colectomy with end-ileostomy and MP BSO
Subjective Data
Date of Service: August 14, 2024
Patient a bit sleepy this morning. Denies issues overnight. NG tube is still bothering her.
Pain somewhat controlled. Denies N/V.
Having ostomy function. Voiding
Objective Data
-
Vital Signs
Temp Pulse Resp BP Pulse Ox
99.1 F 101 20 116/76 95
08/13/24 23:23 08/14/24 04:00 08/14/24 04:00 08/14/24 00:00 08/13/24 14:00
Intake & Output
08/13/24 08/14/24 08/15/24
06:59 06:59 06:59
Intake Total 2989.2 / 2989.2 1650 / 1650
Output Total 620 / 620 2360 / 2360
Balance 2369.2 / 2369.2 -710 / -710
Intake:
Oral fluids 50 / 50
IV fluids (Total) 1060 / 1060 636 / 636
IV piggybacks 300 / 300 300 / 300
TPN/PPN 1369.2 / 1369.2 564 / 564
Amount instilled into GI Tube ( 210 / 210 150 / 150
Total)
[place] Sump 210 / 210 150 / 150
Output:
Liquid stool amount 200 / 200
Ileostomy 200 / 200
Drain Output (Total)
Left Lower Abdomen Kennedy-
Kern
Gastrointestinal tube output ( 105 / 105 800 / 800
Total)
[place] Sump 105 / 105 800 / 800
Urine, Voided 300 / 300 1550 / 1550
Other:
Number of approximated MODERATE 1
amounts of urine
Number of approximated LARGE 1
amounts of urine
Lab Results
08/14/24 04:09
08/14/24 04:09
Physical Exam
-
General: No Acute Distress and AOx3
HEENT: Other (NGT-800 mL light bilious)
Abdomen: Soft, Non Distended, Tender (Appropriately tender near incision; diffusely mildly tender), No Guarding, No Rebound and Other (Ostomy pink, some flatus and stool noted in bag; JAXSON 10 mL serous)
Skin: Warm and Dry
Wound: No Signs of Infection, Dressing in Place and No Skin Erythema
--- NOTE | 2024-08-14 09:10 | PTCARENOTE ---
Patient had burgundy/bloody stool via rectum, approximately 150mls. Surgical team notified. Order to watch and notify surgery of more bloody stool.
[2024-08-14] MEDS: FLUSH (NSS) 2 FLUSH IV ×3 (11:19→15:38)
[2024-08-14 12:42] LABS: Glucose - Point of Care 123 mg/dl (70-99)
--- NOTE | 2024-08-14 14:15 | WOUNDNOTE ---
[facility] RN note: Patient was premedicated by JOSEFINA Gold prior to ostomy appliance change/teaching. Patient's stoma pink, oval and slightly budded. Peristomal skin intact. Some liquid brown stool in pouch. Reinstructed patient how to empty pouch and
change pouch using Pete wafer # [id number], Flora seal and Conklin pouch #[id number]. Patient cut wafer and snapped on pouch. Patient voided in bedpan. Urine clear yellow. Coccyx linear dermal opening looks the same. Calazime ointment applied. Patient
prefers ointment over a foam dressing. Skin on heels intact. Patient can turn self in bed. Heels off bed with pillow. Patient is on a [facility] Max air bed and has an air chair cushion. Next appliance change due early next week. Patient has an NG
tube currently.
--- NOTE | 2024-08-14 16:00 | PTCARENOTE ---
Patient complaining of severe left ear pain and pressure. Patient states that she has had this pain for days. She did not report that to nursing this morning. MD notified. Dr. Israel to room to examine patient. Medicating patient with PRN
dilaudid. Medicating with dilaudid every 2 hours. She reports pain 9/10 and the best she feels after pain medication is 8/10. Patient has some intermittent nausea, medicated x1 with zofran. TPN infusing as ordered. SR/ST on monitor. Patient
had temperature of 101.4 orally this afternoon. Medicated with ofirmev temperature went down 99.2. Patient using bed mitchell to void.
--- NOTE | 2024-08-14 16:45 | CM ---
Patient who is homeless with Dx Pneumoperitoneum (suspected perforated colon) on 08/05 s/p total abdominal colectomy with end-ileostomy, anemia s/p transfusions. Per nursing, blood stool today. Febrile this afternoon. Room air. NPO/NGT.
Receiving TPN, IV Abx, Dilaudid, Protonix, Zosyn. PT/OT recommend skilled rehab. Seen by ostomy nurse.
[facility] SN[facility] accepted: The for report [phone], fax [phone].
Plan [facility] SNF when medically ready.
[2024-08-14] MEDS: LOVENOX 40 MG SC (17:06)
[2024-08-14] MEDS: FLUSH (NSS) 3 FLUSH IV (17:36)
[2024-08-14 18:17] LABS: Glucose - Point of Care 137 mg/dl (70-99)
--- NOTE | 2024-08-14 20:38 | PTCARENOTE ---
Received pt from [facility]. Pt is AAOx3, anxious, withdrawn. NSR/ sinus tach on the monitor. Pt was on RA satting 88%, placed on 2L NC O2 sat 95%, lungs diminished. Pt c/o nausea, PRN Zofran given (see MAR). Right ileostomy and left JAXSON in place. R
nare NG tube to continuos suction, irrigated per order. TPN infusing @ 47 ml/hr. Pt c/o abd and ear pain, PRN pain medication given (see MAR). CHG bath provided. Pt is laying in bed with call quiñones in reach.
[2024-08-14] MEDS: Parenteral Nutrition, Central 1120 IV (21:06)
[2024-08-15] VITALS (20 sets, daily range): BP systolic 102–138; BP diastolic 63–95; BMI 21.9
[2024-08-15] MEDS: NOVOLOG FLEXPEN-LOW RESISTANCE SC ×5 (00:18→23:41)
[2024-08-15 00:23] LABS: Glucose - Point of Care 126 mg/dl (70-99)
[2024-08-15] MEDS: DILAUDID 1 MG IV ×5 (01:47→11:01)
[2024-08-15] MEDS: ZOSYN 50 IV ×4 (06:04→23:07)
[2024-08-15 06:39] LABS: Glucose - Point of Care 136 mg/dl (70-99)
--- NOTE | 2024-08-15 08:26 | W.PN.HOSP.TC ---
Today's Communication/Plan
-
Increase Protonix to twice daily
Assessment / Plan
Assessment / Plan
Gen-AAOx3, NAD
HEENT-NC, AT, anicteric, clear oral mm, no evidence of oral thrush, NG tube in place
Neck-supple
CV-reg, no M, +S1/S2
Lungs-clear B/L
Abd-soft, NT, ND, ostomy intact, abdominal dressing with drain
Ext-no edema
Musculoskeletal-no cyanosis, clubbing
Skin-warm and dry
Neuro-grossly non-focal
Psych-calm, cooperative
Sepsis -fever started 08/11. WBCs trending down. Tachycardia. No obvious infection found so far. Drug fever remains a possibility. Blood cultures negative so far. Doppler ultrasound lower extremities negative. Colorectal surgery wants to hold
off on repeating CT scan for now. Continue IV Zosyn.
CBC pending for today.
Left ear pain -looks normal on exam. She states the pain has been present for 1 week. Uses homeopathic drops at home. I asked her to have someone bring in the drops from home but she states that she lives 3 hours away and cannot do so.
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 Given dose of Remicade in [facility] late June, discharged with prescription for mesalamine that she did not fill, and Steroid taper.
Still complaining of significant abdominal pain. However, she does look comfortable. 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 IV Tylenol [id number]. Has received 10 mg of IV Dilaudid over the past 24 hours.
Pneumoperitoneum -underwent total abdominal colectomy with end ileostomy 08/05. Currently n.p.o., getting TPN for postoperative ileus. NG tube. JAXSON drain. Continue analgesics, SUBWAREHOUSE SUPERVISOR. Currently on IV Zosyn. Abdominal fluid culture from the OR
08/05 shows polymicrobial growth, culture reviewed. Ileostomy with output.
Post-Surgical Hypotension -blood pressure now improved.
-Possibly from operative blood loss anemia
-Additional PRBC transfused on 08/07/24 with Hgb<7
-Tranexamic acid 1 g on 08/07/24
-Continue IV fluids
Hyponatremia -present on admission. Sodium 132, will monitor. 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
Normocytic anemia -suspect inflammatory, reactive. Component of postoperative blood loss anemia noted. Has had 4 units PRBC transfused so far, last transfusion 08/07. Doubt iron deficiency based on labs. Hemoglobin 7.8 this morning, will
monitor. Slowly trending down.
Large degenerating fibroid - status post MP BSO intraoperatively on 08/05/24
-Follow-up with urogynecology outpatient (colorectal surgery discussed this with Dr. Dickson of outpatient urogynecology)
Depression
-Zoloft increased by psychiatry
-Appreciate psychiatry
Full code
Dispo -anticipate SNF on discharge.
Anticipated Discharge: > 48 hours
Subjective/Interval History
-
Date of Service: August 15, 2024
Patient seen and examined. Complaining of left ear pain. Complaining of heartburn. Asking for NG tube to come out.
Objective Data
-
Labs:
Laboratory Results
08/15/24 08/15/24
07:58 08:16
WBC Pending
Hgb Pending
Hct Pending
Plt Count Pending
Sodium Pending
Potassium Pending
Chloride Pending
Carbon Dioxide Pending
BUN Pending
Creatinine Pending
Glucose Pending
Calcium Pending
Vital Signs:
Vital Signs
Temp Pulse Resp BP Pulse Ox
100.2 F 98 19 119/86 97
08/15/24 07:19 08/15/24 06:00 08/15/24 06:00 08/15/24 06:00 08/15/24 06:00
I&O
1008/15/24 08/16/24
06:59 06:59 06:59
Intake Total 1650 / 1650 1708 / 1708
Output Total 2360 / 2360 1655 / 1655 450 / 450
Balance -710 / -710 53 / 53 -450 / -450
Review of Systems
-
History Source: Patient
All other systems: Reviewed and negative
[2024-08-15] MEDS: OSCAL 500 + D 500 MG PO (08:36)
[2024-08-15] MEDS: LIDOCAINE 4% PATCH TOPICAL (08:36)
[2024-08-15] MEDS: ZOLOFT 75 MG PO (08:36)
[2024-08-15] MEDS: NSS (PRESERVATIVE FREE) 10 ML IV ×2 (08:37→20:24)
[2024-08-15] MEDS: PROTONIX IV 40 MG IV ×2 (08:38→20:23)
[2024-08-15] MEDS: OMNIPAQUE 50 ML PO (09:04)
--- NOTE | 2024-08-15 11:25 | W.PN.CRS1 ---
Today's Communication / Plan
-
CT A/P
continue TPN/NGT
Assessment/Plan
-
54-year-old female with PMH of indeterminate colitis (first diagnosed in 2003; received 1 dose of Remicade at that time and then was treated with Asacol for 1 year; she had repeated flares in 2009, 2010 and 2011 for which she received steroids and
was switched to mesalamine derivatives; in 2018, she reports a colonoscopy for which she was told she was in remission and her medications were stopped; she was recently admitted to [facility] in June with a recurrent flare; she was treated
with IV steroids and received a dose of Remicade on 07/14; she was discharged with a steroid taper) who presented to [place] ED on 07/26 with persistent abdominal pain and loose stools, averaging 6-10/day, since her discharge from [facility].
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
Initially patient declining surgery. Attempted medical management with IV steroids with some improvement; however condition declined necessitating emergent OR as pneumoperitoneum was noted.
POD 8 total abdominal colectomy with end ileostomy, IntraOp consult to MIXER SLAGMAN who performed MP/BSO
Worsening abdominal pain on 08/09 with n/v. CT imaging repeated and consistent with ileus. NGT was place with bilious/feculent outputs noted. Some improvement in pain with NGT placement but still persistent.
Await bowel recovery
08/12- fever workup negative
Tmax 101.4
WBC 16.1 from 10.9
� NPO/NGT to wall suction - NGT flushed
- TPN for malnutrition
- PPI for GI ppx
� Continue pain control; continue lidocaine patch, Ofirmev IV. Restart Dilaudid SOLID STATE TESTER given amount of pain.
� Continue IV Zosyn
� Continue DVT PPx with Lovenox
� Appreciate hospitalist
- CT A/P with oral/IV/rectal contrast
Subjective Data
Procedure
08/05/24 Ex lap with total abdominal colectomy with end-ileostomy and MP BSO
Subjective Data
Date of Service: August 15, 2024
Patient states she is in a lot of pain. She is complaining of left-sided ear pain. She has nausea but no vomiting.
Objective Data
-
Vital Signs
Temp Pulse Resp BP Pulse Ox
100.2 F 113 25 105/64 98
08/15/24 07:19 08/15/24 10:00 08/15/24 10:00 08/15/24 10:00 08/15/24 10:00
Intake & Output
08/14/24 08/15/24 08/16/24
06:59 06:59 06:59
Intake Total 1650 / 1650 1708 / 1708 120 / 120
Output Total 2360 / 2360 1655 / 1655 460 / 460
Balance -710 / -710 53 / 53 -340 / -340
Intake:
Oral fluids 80 / 80
IV fluids (Total) 636 / 636
IV piggybacks 300 / 300 200 / 200
TPN/PPN 564 / 564 1248 / 1248
Amount instilled into GI Tube ( 150 / 150 180 / 180 120 / 120
Total)
[place] Sump 150 / 150 180 / 180 120 / 120
Output:
Liquid stool amount 225 / 225
Ileostomy 225 / 225
Drain Output (Total)
Left Lower Abdomen Kennedy-
Kern
Gastrointestinal tube output ( 800 / 800 750 / 750
Total)
[place] Sump 800 / 800 750 / 750
Urine, Voided 1550 / 1550 670 / 670 450 / 450
Other:
Number of approximated LARGE 1
amounts of urine
Physical Exam
-
General: No Acute Distress and AOx3
Abdomen: Soft, Tender and Other (Ileostomy warm and pink with function)
Wound: No Signs of Infection and Dressing Changed
[2024-08-15 11:28] LABS: % Basophils 0.2 % (0-2); % Eosinophils 0.4 % (0-6); % Immature Granulocytes 1.2 % (0-0.5); % Lymphocytes 10.2 % (20.5-51.1); % Monocytes 3.2 % (1.7-9.3); % Neutrophils 84.8 % (42.2-75.2); Absolute Eosinophils 0.1 10^3/uL (0-0.7); Absolute Immature Granulocytes 0.2 10^3/uL (0-0.05); Absolute Lymphocytes 1.6 10^3/uL (1.2-3.4); Absolute Monocytes 0.5 10^3/uL (0.1-0.6); Absolute Neutrophils 13.6 10^3/uL (1.4-6.5); Hematocrit 19.7 % (37.0-47.0); Hemoglobin 6.3 g/dL (12.0-16.0); Mean Corpuscular Hgb 28.6 pg (27.0-31.0); Mean Corpuscular Volume 89.5 fL (81.0-99.0); Nucleated Red Blood Cells % 0 %; Platelet Count 327 10^3/uL (130-400); Red Cell Dist. Width 15.3 % (11.5-14.5); White Blood Cell Count 16.1 10^3/uL (4.8-10.8)
[2024-08-15 11:45] LABS: Blood Urea Nitrogen 10 mg/dl (7-17); Calcium 7.9 mg/dl (8.4-10.2); Carbon Dioxide 27 mmol/L (22-30); Chloride 98 mmol/L (98-107); Estimated Creatinine Clearance 104 ml/min; Glucose 123 mg/dl (70-99); Potassium 4.3 mmol/L (3.5-5.1); Sodium 132 mmol/L (135-145); eGFR > 60.00
[2024-08-15 12:31] LABS: Glucose - Point of Care 97 mg/dl (70-99)
--- NOTE | 2024-08-15 13:00 | PTCARENOTE ---
Patient returned from CT and was incontinent of bloody, liquid BM from rectum. Patient had 2 additional episodes, totalling 750ml of burgundy liquid with a few clots. Surgery and Hospitalist made aware. Patient's vitals are stable.
[2024-08-15] MEDS: DILAUDID PCA 30 IV (13:11)
--- NOTE | 2024-08-15 13:51 | PTCARENOTE ---
FABRICS AND MATERIAL CUTTER Dilaudid started at 1311. Patient educated on use of pain button and frequency of doses. Patient verbalized and demonstrated understanding. Patient called RN into room x2 to make sure FABRICS AND MATERIAL CUTTER was working. RN confirmed both times the FABRICS AND MATERIAL CUTTER was
functioning properly and IV site checked.
[2024-08-15] MEDS: TRANEXAMIC ACID 100 IV (14:13)
[2024-08-15 14:31] LABS: INR 1.44; PT 17.4 Sec (11.4-14.6)
[2024-08-15 14:32] LABS: APTT 44.9 Sec (23.4-35.0)
--- NOTE | 2024-08-15 17:10 | PTCARENOTE ---
Received patient from IR. Patient AAOx3, moaning. New left upper abdomen JAXSON (marked IR) draining purulent manzano fluid. Patient repositioned, ice chips given for comfort. FEDERAL MEDIATOR button given to patient. Patient is resting comfortably at present.
--- NOTE | 2024-08-15 17:14 | CM ---
Patient who is homeless with Dx Pneumoperitoneum s/p total abdominal colectomy with end-ileostomy, anemia s/p transfusions, sepsis, depression. O2 2L. Febrile this morning. NPO/NGT/TPN. Receiving IV Abx, started on Dilaudid CHIEF LIBRARIAN CIRCULATION DEPARTMENT. PT/OT recommend
skilled rehab. Seen by ostomy nurse.
[facility] accepted: The ph for report [phone], fax [phone].
Plan [facility] SNF when medically ready.
--- NOTE | 2024-08-15 17:51 | W.PN.UPDATE ---
Update Note
Progress Note Update
- Post CT guided LUQ drain placement
- 8.5F drain placed without incident. Purulent fluid aspirated.
[2024-08-15 18:25] LABS: Glucose - Point of Care 122 mg/dl (70-99)
--- NOTE | 2024-08-15 19:55 | PTCARENOTE ---
received pt from day shift. aaox3. VSS, NSR on monitor. IV fluids and medications infusing (see MAR). Pt c/o sharp pain in her abdomen which she rates 8/10, educated pt on using her OTTER TRAWLER BOATSWAIN pump. Pt now resting in bed with call quiñones in reach.
[2024-08-15] MEDS: ZOFRAN 4 MG IV (20:22)
[2024-08-15] MEDS: D5/0.45%NACL 1000 IV (20:26)
[2024-08-15 21:12] LABS: Hematocrit 21.4 % (37.0-47.0); Hemoglobin 7.4 g/dL (12.0-16.0); Mean Corp Hgb Conc. 34.6 g/dL (33.0-37.0); Mean Corpuscular Hgb 28.6 pg (27.0-31.0); Mean Corpuscular Volume 82.6 fL (81.0-99.0); Mean Platelet Volume 9.5 fL (7.4-10.4); Platelet Count 313 10^3/uL (130-400); Red Blood Cell Count 2.59 10^6/uL (4.20-5.40); White Blood Cell Count 14.2 10^3/uL (4.8-10.8)
[2024-08-15] MEDS: Parenteral Nutrition, Central 1120 IV (21:46)
[2024-08-15] MEDS: XANAX 0.25 MG PO (23:08)
--- NOTE | 2024-08-15 23:25 | PTCARENOTE ---
While at pt's bedside, I found 20 pills that the pt reported were Tylenol. The pills were in a tissue box on her bedside table. Pt said that her sister brought them in two weeks ago. Pt denied taking any of the pills. 20 pills placed in bag with
patient label, and placed in COW in pt's room. Asked pt if she had any other medications and she said yes. Approved that I could bring over bag and remove medications from it. All pill containers labelled with her name and pt stated they were from
her stay at [place]. These medications placed in the pt's COW as well.
[2024-08-15 23:47] LABS: Glucose - Point of Care 133 mg/dl (70-99)
[2024-08-16] VITALS (20 sets, daily range): BP systolic 111–134; BP diastolic 67–108; BMI 21.3
[2024-08-16 02:59] LABS: % Basophils 0.3 % (0-2); % Eosinophils 0.6 % (0-6); % Immature Granulocytes 1.4 % (0-0.5); % Lymphocytes 11.5 % (20.5-51.1); % Monocytes 4.2 % (1.7-9.3); Absolute Eosinophils 0.1 10^3/uL (0-0.7); Absolute Immature Granulocytes 0.2 10^3/uL (0-0.05); Absolute Lymphocytes 1.4 10^3/uL (1.2-3.4); Absolute Monocytes 0.5 10^3/uL (0.1-0.6); Absolute Neutrophils 10.2 10^3/uL (1.4-6.5); Hematocrit 21.2 % (37.0-47.0); Hemoglobin 7.1 g/dL (12.0-16.0); Mean Corp Hgb Conc. 33.5 g/dL (33.0-37.0); Mean Corpuscular Hgb 27.7 pg (27.0-31.0); Mean Corpuscular Volume 82.8 fL (81.0-99.0); Mean Platelet Volume 9.7 fL (7.4-10.4); Nucleated Red Blood Cells % 0 %; Platelet Count 329 10^3/uL (130-400); Red Blood Cell Count 2.56 10^6/uL (4.20-5.40); Red Cell Dist. Width 16.5 % (11.5-14.5); White Blood Cell Count 12.5 10^3/uL (4.8-10.8)
[2024-08-16] MEDS: ZOSYN 50 IV ×4 (05:01→23:20)
[2024-08-16] MEDS: NOVOLOG FLEXPEN-LOW RESISTANCE SC ×4 (05:02→23:21)
[2024-08-16 05:15] LABS: Glucose - Point of Care 137 mg/dl (70-99)
[2024-08-16] MEDS: LIDOCAINE 4% PATCH TOPICAL (08:55)
[2024-08-16] MEDS: ZOLOFT 75 MG PO (09:00)
[2024-08-16] MEDS: NSS (PRESERVATIVE FREE) 10 ML IV ×2 (09:00→19:52)
[2024-08-16] MEDS: PROTONIX IV 40 MG IV ×2 (09:00→19:51)
[2024-08-16] MEDS: OSCAL 500 + D 500 MG PO (09:00)
[2024-08-16] MEDS: ZOFRAN 4 MG IV (09:02)
[2024-08-16 09:30] LABS: Hematocrit 21.2 % (37.0-47.0); Hemoglobin 7.3 g/dL (12.0-16.0); Mean Corp Hgb Conc. 34.4 g/dL (33.0-37.0); Mean Corpuscular Hgb 28.4 pg (27.0-31.0); Mean Corpuscular Volume 82.5 fL (81.0-99.0); Mean Platelet Volume 9.6 fL (7.4-10.4); Platelet Count 343 10^3/uL (130-400); Red Blood Cell Count 2.57 10^6/uL (4.20-5.40); Red Cell Dist. Width 16.5 % (11.5-14.5)
--- NOTE | 2024-08-16 09:59 | W.PN.HOSP.TC ---
Today's Communication/Plan
-
Continue antibiotics
ENT consult
Transfuse
Assessment / Plan
Assessment / Plan
Gen-AAOx3, NAD
HEENT-NC, AT, anicteric, clear oral mm, no evidence of oral thrush, NG tube in place
Neck-supple
CV-reg, no M, +S1/S2
Lungs-clear B/L
Abd-soft, NT, ND, ostomy intact, abdominal dressing with drain
Ext-no edema
Musculoskeletal-no cyanosis, clubbing
Skin-warm and dry
Neuro-grossly non-focal
Psych-calm, cooperative
Sepsis -due to intra-abdominal abscess. CT confirmed small intra-abdominal collections. Largest is left upper quadrant measuring up to 4.7 cm in diameter. Another small collection at the ostomy site measures up to 3.9 cm in diameter. Drain
placed by IR on 08/15. Continue IV Zosyn. Fluid culture pending.
Left ear pain -looks normal on exam. She states the pain has been present for 1 week. Uses homeopathic drops at home. I asked her to have someone bring in the drops from home but she states that she lives 3 hours away and cannot do so. Requested
ENT consult.
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 Given dose of Remicade in [facility] late June, discharged with prescription for mesalamine that she did not fill, and Steroid taper.
Still complaining of significant abdominal pain. However, she does look comfortable. Dilaudid SLEEVE BASTER discontinued, getting IV Dilaudid as needed. IV Tylenol [id number]. Has received 10 mg of IV Dilaudid over the past 24 hours.
Pneumoperitoneum -underwent total abdominal colectomy with end ileostomy 08/05. Currently n.p.o., getting TPN for postoperative ileus. NG tube. JAXSON drain. Continue analgesics, SLEEVE BASTER. Currently on IV Zosyn. Abdominal fluid culture from the OR
08/05 shows polymicrobial growth, culture reviewed. Ileostomy with output.
Post-Surgical Hypotension -blood pressure now improved.
-Possibly from operative blood loss anemia
-Additional PRBC transfused on 08/07/24 with Hgb<7
-Tranexamic acid 1 g on 08/07/24
-Continue IV fluids
Hyponatremia -present on admission. Sodium 132, will monitor. 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
Acute normocytic anemia -component of acute anemia over the past 24 hours due to GI blood loss. Hemoglobin dropped to 6.3 on 08/15. Transfused 1 unit of PRBC with improvement in hemoglobin, 7.3 this morning. Second unit of blood ordered for today.
Large degenerating fibroid - status post MP BSO intraoperatively on 08/05/24
-Follow-up with urogynecology outpatient (colorectal surgery discussed this with Dr. Dickson of outpatient urogynecology)
Depression
-Zoloft increased by psychiatry
-Appreciate psychiatry
Full code
Dispo -anticipate SNF on discharge.
Anticipated Discharge: > 48 hours
Subjective/Interval History
-
Date of Service: August 16, 2024
Patient seen and examined. Complaining of abdominal pain.
Objective Data
-
Labs:
Laboratory Results
08/16/24 08/16/24 08/16/24
02:23 02:23 02:23
WBC 12.5 H Cancelled
Hgb 7.1 L Cancelled
Hct 21.2 L
Plt Count
08/16/24 08/16/24 08/16/24
02:23 02:23 09:09
WBC 13.0 H
Hgb 7.3 L
Hct Cancelled 21.2 L
Plt Count 329 Cancelled 343
Vital Signs:
Vital Signs
Temp Pulse Resp BP Pulse Ox
97.7 F 97 31 121/89 97
08/16/24 07:40 08/16/24 06:00 08/16/24 06:00 08/16/24 06:00 08/16/24 06:00
I&O
08/15/24 08/16/24 08/17/24
06:59 06:59 05:59
Intake Total 1708 / 1708 2647.3 / 2647.3
Output Total 1655 / 1655 1205 / 1205
Balance 53 / 53 1442.3 / 1442.3
Review of Systems
-
History Source: Patient
All other systems: Reviewed and negative
--- NOTE | 2024-08-16 11:25 | PTCARENOTE ---
Addendum entered by López Alcantar RN 08/16/24 16:56:
Patient had 1 very small liquid (roughly 10ml), dark burgundy stool from rectum
Original Note:
Patient AAOx3, states just wants to rest. VSS. RA 91%, requires 2L NC PRN when asleep and sats go to 88%. TRUCK UNLOADER & TPN & IVFs running as ordered. Patient irritated at times, holding hands over ears as I try to educate her on incentive spirometry and
goals for the day, etc. Will keep trying. Encouraging better effort. PRBCs infusing now. Call quiñones in hand, patient making needs known. Will closely monitor.
[2024-08-16 12:03] LABS: Glucose - Point of Care 149 mg/dl (70-99)
--- NOTE | 2024-08-16 14:03 | W.PN.CRS1 ---
Today's Communication / Plan
-
TPN
1 unit prbcs
ENT c/s
Assessment/Plan
-
54-year-old female with PMH of indeterminate colitis (first diagnosed in 2003; received 1 dose of Remicade at that time and then was treated with Asacol for 1 year; she had repeated flares in 2009, 2010 and 2011 for which she received steroids and
was switched to mesalamine derivatives; in 2019, she reports a colonoscopy for which she was told she was in remission and her medications were stopped; she was recently admitted to [facility] in June with a recurrent flare; she was treated
with IV steroids and received a dose of Remicade on 07/14; she was discharged with a steroid taper) who presented to [place] ED on 07/26 with persistent abdominal pain and loose stools, averaging 6-10/day, since her discharge from [facility].
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
Initially patient declining surgery. Attempted medical management with IV steroids with some improvement; however condition declined necessitating emergent OR as pneumoperitoneum was noted.
POD 9 total abdominal colectomy with end ileostomy, IntraOp consult to BACK PADDER who performed MP/BSO
Worsening abdominal pain on 08/09 with n/v. CT imaging repeated and consistent with ileus. NGT was place with bilious/feculent outputs noted. Some improvement in pain with NGT placement but still persistent.
Await bowel recovery
08/12- fever workup negative
08/15- IR drain into LUQ abscess
Tmax 99.0
WBC 13.0 from 16.1
Hgb 7.1 from 7.4
NGT output: 560ml
� NPO/NGT to wall suction
- TPN for malnutrition
- PPI for GI ppx
� Continue pain control; continue lidocaine patch, Ofirmev IV. Dilaudid TRAINING ADMINISTRATOR given amount of pain.
� Continue IV Zosyn
� Continue DVT PPx with Lovenox
� Appreciate hospitalist
- 1 unit PRBCs given hgb 7.1
- Recommend ENT consult for continuing left ear pain
- LUQ abscess cultures pending
Subjective Data
Procedure
08/05/24 Ex lap with total abdominal colectomy with end-ileostomy and MP BSO
Subjective Data
Date of Service: August 16, 2024
Patient states she feels nauseous. She has pain around her incision. She also complains of left ear pain.
Objective Data
-
Vital Signs
Temp Pulse Resp BP Pulse Ox
98.9 F 96 25 123/79 98
08/16/24 11:34 08/16/24 11:34 08/16/24 12:00 08/16/24 11:34 08/16/24 12:00
Intake & Output
08/15/24 08/16/24 08/17/24
06:59 06:59 05:59
Intake Total 1708 / 1708 2647.3 / 2647.3
Output Total 1655 / 1655 1205 / 1205
Balance 53 / 53 1442.3 / 1442.3
Intake:
Oral fluids 80 / 80 60 / 60
IV fluids (Total) 440 / 440
IV piggybacks 200 / 200 263.3 / 263.3
TPN/PPN 1248 / 1248 1034 / 1034
Amount instilled into Drain (
Total)
Left Upper Abdomen Placed in IR
Amount instilled into GI Tube ( 180 / 180 330 / 330
Total)
[place] Sump 180 / 180 330 / 330
Blood products 250 / 250
Blood Product Amount Infused ( 250 / 250 0 / 0
mL)
Packed Rbc Leukoreduced Unit 0 / 0
[id number]
Packed Rbc Leukoreduced Unit 250 / 250
[id number]
Output:
Liquid stool amount 225 / 225 100 / 100
Ileostomy 225 / 225 100 / 100
Drain Output (Total)
Left Lower Abdomen Kennedy- 35
[place]
Left Upper Abdomen Placed in IR 60 / 60
Gastrointestinal tube output ( 750 / 750 560 / 560
Total)
[place] Sump 750 / 750 560 / 560
Urine, Voided 670 / 670 450 / 450
Other:
Number of approximated MODERATE 1
amounts of urine
Number of approximated LARGE 1 1
amounts of urine
Lab Results
08/16/24 09:09
08/15/24 10:50
Physical Exam
-
General: No Acute Distress and AOx3
Abdomen: Soft, Tender (near incision) and Other (L OR drain - serous, L IR drain - manzano/green pus)
Skin: Warm and Dry
Wound: Dressing Changed
Incision: Clear, Dry, Intact
[2024-08-16] MEDS: XANAX 0.25 MG PO (14:15)
--- NOTE | 2024-08-16 15:42 | W.PN.ENT ---
Today's Communication
-
Warm compresses left face TID, otherwise f/u w ent prn
Impression / Plan
-
The patient has left otalgia with normal exam findings. There is associated DE LA O as well. Likely MSK pain so heat application wa few times a day could be helpful. May also be related to NGT in the MEDICAL SUPPORT ASSISTANT near the eustachian tube orifice can cause some
otalgia even if its in the right nare.
Subjective Data
-
ENT called for patietn c/o left ear pain. She is also having a headache. There is no change in hearing, ear drainage or ringing. She feels a throbbing in the ear and head. She denies any prior ear infections or ear surgeries. She is minimally verbal.
Objective Data
-
Vital Signs
Temp Pulse Resp BP Pulse Ox
97.8 F 95 27 127/91 98
08/16/24 14:54 08/16/24 14:54 08/16/24 14:54 08/16/24 14:54 08/16/24 14:54
Intake & Output
08/16/24 09:09
08/15/24 10:50
Physical Exam
-
GEN: NAD, Alert, seems uninterested
HEENT: Ears are clear AU, no erythema. Nasal exam is normal with exception of NGT on right side, OC/OP normal, neck normal
[2024-08-16] MEDS: TUMS CHEWABLE TABLET 400 MG PO (16:33)
[2024-08-16 18:34] LABS: Glucose - Point of Care 127 mg/dl (70-99)
[2024-08-16] MEDS: OFIRMEV 100 IV (20:09)
[2024-08-16] MEDS: Parenteral Nutrition, Central 1120 IV (21:08)
[2024-08-16 23:26] LABS: Glucose - Point of Care 127 mg/dl (70-99)
[2024-08-17] VITALS (13 sets, daily range): BP systolic 97–143; BP diastolic 68–96; PULSE 109; O2SAT 92; BMI 21.6
[2024-08-17] MEDS: XANAX 0.25 MG PO ×2 (00:09→08:17)
[2024-08-17] MEDS: OFIRMEV 100 IV ×4 (03:47→22:15)
[2024-08-17 04:20] LABS: % Basophils 0.5 % (0-2); % Eosinophils 0.7 % (0-6); % Immature Granulocytes 1.3 % (0-0.5); % Lymphocytes 14.6 % (20.5-51.1); % Monocytes 4.3 % (1.7-9.3); % Neutrophils 78.6 % (42.2-75.2); Absolute Basophils 0.1 10^3/uL (0-0.2); Absolute Eosinophils 0.1 10^3/uL (0-0.7); Absolute Immature Granulocytes 0.1 10^3/uL (0-0.05); Absolute Lymphocytes 1.5 10^3/uL (1.2-3.4); Absolute Monocytes 0.5 10^3/uL (0.1-0.6); Absolute Neutrophils 8.2 10^3/uL (1.4-6.5); Hematocrit 25.2 % (37.0-47.0); Hemoglobin 8.4 g/dL (12.0-16.0); Mean Corp Hgb Conc. 33.3 g/dL (33.0-37.0); Mean Corpuscular Hgb 29.2 pg (27.0-31.0); Mean Corpuscular Volume 87.5 fL (81.0-99.0); Mean Platelet Volume 9.9 fL (7.4-10.4); Nucleated Red Blood Cells % 0 %; Platelet Count 376 10^3/uL (130-400); Red Blood Cell Count 2.88 10^6/uL (4.20-5.40); White Blood Cell Count 10.4 10^3/uL (4.8-10.8)
[2024-08-17 06:03] LABS: Glucose - Point of Care 153 mg/dl (70-99)
[2024-08-17] MEDS: NOVOLOG FLEXPEN-LOW RESISTANCE 1 UNITS SC (06:06)
[2024-08-17] MEDS: ZOSYN 50 IV ×3 (06:06→16:29)
[2024-08-17] MEDS: ZOLOFT 75 MG PO (08:17)
[2024-08-17] MEDS: PROTONIX IV 40 MG IV ×2 (08:18→19:52)
[2024-08-17] MEDS: OSCAL 500 + D 500 MG PO (08:18)
[2024-08-17] MEDS: NSS (PRESERVATIVE FREE) 10 ML IV ×2 (08:18→19:51)
--- NOTE | 2024-08-17 08:35 | W.PN.HOSP.TC ---
Today's Communication/Plan
-
Continue current care
Assessment / Plan
Assessment / Plan
Gen-AAOx3, NAD
HEENT-NC, AT, anicteric, clear oral mm, no evidence of oral thrush, NG tube in place
Neck-supple
CV-reg, no M, +S1/S2
Lungs-clear B/L
Abd-soft, NT, ND, ostomy intact, abdominal dressing with drain
Ext-no edema
Musculoskeletal-no cyanosis, clubbing
Skin-warm and dry
Neuro-grossly non-focal
Psych-calm, cooperative
Sepsis -due to intra-abdominal abscess. CT confirmed small intra-abdominal collections. Largest is left upper quadrant measuring up to 4.7 cm in diameter. Another small collection at the ostomy site measures up to 3.9 cm in diameter. Drain
placed by IR on 08/15. Continue IV Zosyn. Fluid culture pending, Gram stain shows polymicrobial organisms..
Left ear pain -looks normal on exam. ENT input noted. Warm compresses. Pain possibly related to NG tube. Improves with Tylenol.
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 Given dose of Remicade in [facility] late June, discharged with prescription for mesalamine that she did not fill, and Steroid taper.
Still complaining of significant abdominal pain. However, she does look comfortable. Dilaudid REFERENCE LIBRARY ASSISTANT discontinued, getting IV Dilaudid as needed. IV Tylenol [id number]. Has received 10 mg of IV Dilaudid over the past 24 hours.
Pneumoperitoneum -underwent total abdominal colectomy with end ileostomy 08/05. Currently n.p.o., getting TPN for postoperative ileus. NG tube. JAXSON drain. Continue analgesics, REFERENCE LIBRARY ASSISTANT. Currently on IV Zosyn. Abdominal fluid culture from the OR
08/05 shows polymicrobial growth, culture reviewed. Ileostomy with output.
Post-Surgical Hypotension -blood pressure now improved.
-Possibly from operative blood loss anemia
-Tranexamic acid 1 g on 08/07/24
Hyponatremia -present on admission. Sodium 132, will monitor. 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
Acute normocytic anemia -component of acute anemia over the past 24 hours due to GI blood loss. Hemoglobin improved to 8.4 today. Has had 6 units of blood transfused so far.
Large degenerating fibroid - status post MP BSO intraoperatively on 08/05/24
-Follow-up with urogynecology outpatient (colorectal surgery discussed this with Dr. Dickson of outpatient urogynecology)
Depression
-Zoloft increased by psychiatry
-Appreciate psychiatry
Full code
Dispo -anticipate SNF on discharge.
Anticipated Discharge: > 48 hours
Subjective/Interval History
-
Date of Service: August 17, 2024
Patient seen and examined. Complaining of left ear pain.
Objective Data
-
Labs:
Laboratory Results
08/17/24
03:48
WBC 10.4
Hgb 8.4 L
Hct 25.2 L
Plt Count 376
Vital Signs:
Vital Signs
Temp Pulse Resp BP Pulse Ox
98.4 F 89 23 134/84 94
08/17/24 03:32 08/17/24 06:00 08/17/24 06:39 08/17/24 06:00 08/17/24 06:39
I&O
08/16/24 08/17/24 08/18/24
07:59 06:59 06:59
Intake Total
Output Total
Balance
Review of Systems
-
History Source: Patient
All other systems: Reviewed and negative
[2024-08-17] MEDS: FLUSH (NSS) 2 FLUSH IV ×4 (09:54→16:30)
--- NOTE | 2024-08-17 10:06 | PTCARENOTE ---
[place] sump discontinued by surgical team. Clear liquid diet with clear ensure added. TPN infusing via right d/l PICC as per orders at 47 mls/hr. K-pad to left ear for comfort. IV tylenol given for pain and CABINET MOUNTER dilaudid as ordered. Patient
continues to report pain level as 9 or 10 out of 10. Patient reports pain relief of 8 out of 10 after pain medication. Mid-line stables DRAW MACHINE OPERATOR. SR on monitor. VS stable.
--- NOTE | 2024-08-17 11:46 | W.PN.CRS1 ---
Today's Communication / Plan
-
ngt out
clears
oncology c/s
Assessment/Plan
-
54-year-old female with PMH of indeterminate colitis (first diagnosed in 2003; received 1 dose of Remicade at that time and then was treated with Asacol for 1 year; she had repeated flares in 2009, 2010 and 2011 for which she received steroids and
was switched to mesalamine derivatives; in 2019, she reports a colonoscopy for which she was told she was in remission and her medications were stopped; she was recently admitted to [facility] in June with a recurrent flare; she was treated
with IV steroids and received a dose of Remicade on 07/14; she was discharged with a steroid taper) who presented to [place] ED on 07/26 with persistent abdominal pain and loose stools, averaging 6-10/day, since her discharge from [facility].
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
Initially patient declining surgery. Attempted medical management with IV steroids with some improvement; however condition declined necessitating emergent OR as pneumoperitoneum was noted.
POD 10 total abdominal colectomy with end ileostomy, IntraOp consult to FLY RAISER LOCKSTITCH who performed MP/BSO
Worsening abdominal pain on 08/09 with n/v. CT imaging repeated and consistent with ileus. NGT was place with bilious/feculent outputs noted. Some improvement in pain with NGT placement but still persistent.
Await bowel recovery
08/12- fever workup negative
08/15- IR drain into LUQ abscess
Tmax 98.9
WBC 10.4
Hgb 8.4
NGT output: 30ml
� NGT removed at bedside. Advance diet to clears with ensure.
- TPN for malnutrition
- PPI for GI ppx
� Continue pain control; continue lidocaine patch, Ofirmev IV. On dilaudid DANCING MASTER given amount of pain.
� Continue IV Zosyn for a few more days
� Continue DVT PPx with Lovenox
� Appreciate hospitalist
- LUQ abscess cultures pending
-Will need eventual input from GI regarding long-term management of IBD
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
Subjective Data
Procedure
08/05/24 Ex lap with total abdominal colectomy with end-ileostomy and MP BSO
Subjective Data
Date of Service: August 17, 2024
Patient states she has no nausea or vomiting. She still has pain. She has no blood in her stools over the past 24 hours.
Objective Data
-
Vital Signs
Temp Pulse Resp BP Pulse Ox
97.9 F 93 28 123/77 96
08/17/24 07:20 08/17/24 10:00 08/17/24 10:00 08/17/24 10:00 08/17/24 10:00
Intake & Output
08/16/24 08/17/24 08/18/24
07:59 06:59 06:59
Intake Total 340 / 340
Output Total 400 / 400
Balance -60 / -60
Intake:
Oral fluids 240 / 240
IV fluids (Total)
IV piggybacks 100 / 100
TPN/PPN
Amount instilled into Drain (
Total)
Left Upper Abdomen Placed in IR
Amount instilled into GI Tube (
Total)
[place] Sump
Blood products
Blood Product Amount Infused (
mL)
Packed Rbc Leukoreduced Unit
[id number]
Packed Rbc Leukoreduced Unit
[id number]
Output:
Liquid stool amount 400 / 400
Ileostomy 400 / 400
Drain Output (Total)
Left Lower Abdomen Kennedy-
Kern
Left Upper Abdomen Placed in IR
Gastrointestinal tube output (
Total)
[place] Sump
Urine, Voided
Other:
Number of approximated SMALL 1
amounts of urine
Number of approximated MODERATE 1
amounts of urine
Number of approximated LARGE
amounts of urine
Lab Results
08/17/24 03:48
08/15/24 10:50
Physical Exam
-
General: No Acute Distress and AOx3
Abdomen: Soft, Non Distended, Tender (around incision) and Other (OR susan - serous, IR SUSAN- manzano pus)
--- NOTE | 2024-08-17 11:46 | CON.ONC ---
Impression
Impression
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
Plan
Plan
Generally associated with excellent overall survival
No adjuvant therapy
Surveillance monitoring with chromogranin and 5-HIAA not typically recommended for early stage disease
Low-grade malignancy likely to be inactive on Gallium-68 PET/CT scan
Radiologic studies directed toward symptoms
Follow-up for surveillance physical exams and routine laboratory studies
Patient History
History of Present Illness
Patient is a pleasant 54-year-old female with a history of chronic inflammatory bowel disease noted to have perforations/Status post total abdominal colectomy with end ileostomy. Pathology revealed a terminal ileum which 1.4 cm carcinoid tumor with
invasion of the appendiceal submucosa and negative for greater than 50 lymph node assessment. Tumor was well-differentiated grade 1. Oncology has been consulted to review the pathology and make recommendations for adjuvant therapy and surveillance
follow-up. Patient is slowly recovering having had A polymicrobial intra-abdominal abscess and remains on broad-spectrum antibiotics.
Past-Medical/Surgical History
PAST MEDICAL HISTORY: Significant for inflammatory bowel disease,
reflux, and psoriasis.
PAST SURGICAL HISTORY: The patient is now status post total
abdominal colectomy with end ileostomy and MP/BSO.
SOCIAL HISTORY: Patient is a nonsmoker. Does not drink alcohol
FAMILY HISTORY: Noncontributory.
Patient Medication
�Medication �Instructions �Recorded �Confirmed �Last Taken �Type
acetaminophen 325 mg tablet 650 mg PO Q6HPRN PRN mild pain 07/26/24 07/26/24 Unknown History
(Tylenol)
melatonin 5 mg tablet 5 mg PO HSPRN PRN sleep 07/26/24 07/26/24 Unknown History
nystatin 100,000 unit/mL oral 5 ml PO QID Infection 07/26/24 07/26/24 Unknown History
suspension
pantoprazole 40 mg tablet,delayed 40 mg PO BID Gastrointestinal Issue 07/26/24 07/26/24 Unknown History
release (Protonix)
prednisone 10 mg tablets in a dose 10 mg PO DIRECTED INFLAMMATION 07/26/24 07/26/24 Unknown History
pack
sertraline 50 mg tablet 50 mg PO DAILY Mental 07/26/24 07/26/24 Unknown History
Health/Anxiety
triamcinolone acetonide 0.05 % 1 applic topical DAILY b/l legs 07/26/24 07/26/24 Unknown History
topical ointment
Active Medications
Generic Name Dose Route Start Last Admin
Trade Name Freq PRN Reason Stop Dose Admin
Acetaminophen 1,000 mg 08/07/24 22:00 08/09/24 05:06
Acetaminophen 500 Mg Tablet PO 09/04/24 21:59 1,000 mg
Q8H ZAC Administration
Alprazolam 0.25 mg 08/08/24 05:15 08/17/24 08:17
Alprazolam 0.25 Mg Tablet PO 09/05/24 05:14 0.25 mg
Q8HPRN PRN Administration
anxiety
Calcium Carbonate 400 mg 08/09/24 02:30 08/16/24 16:33
Calcium Antacid 200 Mg (Calcium Carbonate 500 Mg) Chew Tablet PO 09/06/24 02:29 400 mg
Q4HPRN PRN Administration
indigestion
Calcium/Vitamin D 500 mg 08/02/24 08:00 08/17/24 08:18
Calcium Carbonate 500 Mg/Vitamin D 5 Mcg (200 Units) Tablet PO 08/30/24 07:59 500 mg
DAILY ZAC Administration
Dextrose 12.5 grams 08/06/24 14:00
Dextrose 50% (0.5 Grams/Ml) 50 Ml Syringe IV 09/03/24 13:59
[id number] PRN
hypoglycemia
Protocol
Enoxaparin Sodium 40 mg 08/08/24 18:00 08/14/24 17:06
Enoxaparin Sodium 40 Mg/0.4 Ml Syringe SC 09/05/24 17:59 40 mg
QPM ZAC Administration
Glucagon 1 mg 08/06/24 14:00
Glucagon 1 Mg Vial IM 09/03/24 13:59
PRN PRN
hypoglycemia - no IV access
Protocol
Piperacillin Sod/Tazobactam Sod 3.375 gram in 50 mls @ 100 mls/hr 08/05/24 12:00 08/17/24 06:06
Zosyn IV 50 mls
Q6H ZAC Administration
Nutrition (Parenteral) 1,120 ml in 1,120 mls @ 47 mls/hr 08/16/24 21:00 08/16/24 21:08
Parenteral Nutrition, Central IV 08/17/24 20:59 1,120 mls
ONCE@2100 NR Administration
Protocol
Per Protocol
Acetaminophen 1,000 mg in 100 mls @ 400 mls/hr 08/16/24 19:43 08/17/24 09:53
Ofirmev IV 08/17/24 19:42 100 mls
Q6HPRN PRN Administration
mod pain/T >100.5
Protocol
Hydromorphone HCl 30 mg in 30 mls @ 0 mls/hr 08/16/24 19:45
Dilaudid Construction Technician IV
PER PROTOCOL ZAC
Protocol
Per Protocol
Nutrition (Parenteral) 1,120 ml in 1,120 mls @ 47 mls/hr 08/17/24 21:00
Parenteral Nutrition, Central IV 08/18/24 20:59
ONCE@2100 NR
Protocol
Per Protocol
Insulin Aspart 0 units 08/09/24 00:00 08/17/24 06:06
Insulin Aspart Low Resistance 300 Units/3 Ml Pen.Injctr SC 09/06/24 00:00 300 units
Q6 ZAC Administration
Protocol
Naloxone HCl 0.04 mg 08/10/24 12:14
Naloxone (0.4 Mg/Ml) 1 Ml Injection IV 09/07/24 12:13
Q2MPRN PRN
RR </= 10/min / Pasero scale=4
Ondansetron HCl 4 mg 07/26/24 03:08 08/16/24 09:02
Ondansetron 4 Mg/2 Ml Vial IV 08/23/24 03:07 4 mg
Q6HPRN PRN Administration
nausea and vomiting
Oxycodone HCl 10 mg 08/08/24 20:00 08/09/24 07:43
Oxycodone 10 Mg Regular Release Tablet PO 08/22/24 19:59 10 mg
Q6H ZAC Administration
Pantoprazole Sodium 40 mg 08/15/24 20:00 08/17/24 08:18
Pantoprazole Sodium 40 Mg/10 Ml Vial IV 09/12/24 19:59 40 mg
Q12 ZAC Administration
Phenol 0 spray 08/09/24 14:29 08/13/24 11:49
Chloraseptic (1.4% Phenol) Throat [place] PO 09/06/24 14:28 1 spray
Q2HPRN PRN Administration
throat pain
Sertraline HCl 75 mg 08/11/24 08:00 08/17/24 08:17
Sertraline 25 Mg Tablet PO 09/08/24 07:59 75 mg
DAILY ZAC Administration
Sodium Chloride 0 flush 07/26/24 02:00 08/17/24 09:54
Sodium Chloride 0.9% (Flush) Syringe IV 08/23/24 01:59 2 flush
PER PROTOCOL ZAC Administration
Sodium Chloride 0.9 ml 08/10/24 12:14
Sodium Chloride 0.9% (Preservative Free) 10 Ml Vial IV 09/07/24 12:13
Q2MPRN PRN
naloxone dilution
Sodium Chloride 10 ml 08/15/24 20:00 08/17/24 08:18
Sodium Chloride 0.9% (Preservative Free) 10 Ml Vial IV 09/12/24 19:59 10 ml
Q12 ZAC Administration
Review of Systems
-
12 point review of systems fails to listen additional complaints pertinent to the oncologic diagnosis
Physical Exam
-
Gen-AAOx3, NAD
HEENT-NC, AT, anicteric, clear oral mm, no evidence of oral thrush, NG tube in place
Neck-supple
CV-reg, no M, +S1/S2
Lungs-clear B/L
Abd-soft, NT, ND, ostomy intact, abdominal dressing with drain
Ext-no edema
Musculoskeletal-no cyanosis, clubbing
Skin-warm and dry
Neuro-grossly non-focal
Psych-calm, cooperative
Labs
Lab Results
WBC 10.4 10^3/uL (4.8-10.8) 08/17/24 03:48
RBC 2.88 10^6/uL (4.20-5.40) L 08/17/24 03:48
Hgb 8.4 g/dL (12.0-16.0) L 08/17/24 03:48
Hct 25.2 % (37.0-47.0) L 08/17/24 03:48
MCV 87.5 fL (81.0-99.0) 08/17/24 03:48
MCH 29.2 pg (27.0-31.0) 08/17/24 03:48
MCHC 33.3 g/dL (33.0-37.0) 08/17/24 03:48
RDW 16.0 % (11.5-14.5) H 08/17/24 03:48
Plt Count 376 10^3/uL (130-400) 08/17/24 03:48
MPV 9.9 fL (7.4-10.4) 08/17/24 03:48
Abs Immat Gran (auto) 0.1 10^3/uL (0-0.05) H 08/17/24 03:48
Absolute Neuts (auto) 8.2 10^3/uL (1.4-6.5) H 08/17/24 03:48
Absolute Lymphs (auto) 1.5 10^3/uL (1.2-3.4) 08/17/24 03:48
Absolute Monos (auto) 0.5 10^3/uL (0.1-0.6) 08/17/24 03:48
Absolute Eos (auto) 0.1 10^3/uL (0-0.7) 08/17/24 03:48
Absolute Basos (auto) 0.1 10^3/uL (0-0.2) 08/17/24 03:48
Immature Gran % 1.3 % (0-0.5) H 08/17/24 03:48
Neutrophils % 78.6 % (42.2-75.2) H 08/17/24 03:48
Lymphocytes % 14.6 % (20.5-51.1) L 08/17/24 03:48
Monocytes % 4.3 % (1.7-9.3) 08/17/24 03:48
Eosinophils % 0.7 % (0-6) 08/17/24 03:48
Basophils % 0.5 % (0-2) 08/17/24 03:48
Creatinine 0.4 mg/dL (0.6-1.0) L 08/15/24 10:50
Vital Signs
Vital Signs
Temp Pulse Resp BP Pulse Ox
97.9 F 93 28 123/77 96
08/17/24 07:20 08/17/24 10:00 08/17/24 10:00 08/17/24 10:00 08/17/24 10:00
[2024-08-17 12:11] LABS: Glucose - Point of Care 135 mg/dl (70-99)
[2024-08-17] MEDS: NOVOLOG FLEXPEN-LOW RESISTANCE SC ×2 (13:24→17:54)
[2024-08-17 16:59] LABS: Glucose - Point of Care 103 mg/dl (70-99)
--- NOTE | 2024-08-17 17:51 | PTCARENOTE ---
Patient tolerated clear liquids. She is taking it slow. Denied any nausea or pain afterwards. Patient more comfortable with [place] sump out. Left ear pain is diminishing a bit but still hurts her. She is using warm compresses on left ear.
[2024-08-17] MEDS: Parenteral Nutrition, Central 1120 IV (20:38)
[2024-08-18] VITALS (14 sets, daily range): BP systolic 83–127; BP diastolic 64–80; PULSE 101–103; O2SAT 95–96; BMI 22.3
[2024-08-18 00:07] LABS: Glucose - Point of Care 121 mg/dl (70-99)
[2024-08-18] MEDS: ZOSYN 50 IV ×5 (00:07→23:53)
[2024-08-18] MEDS: NOVOLOG FLEXPEN-LOW RESISTANCE SC ×5 (00:08→23:53)
[2024-08-18 05:24] LABS: % Basophils 0.7 % (0-2); % Eosinophils 1.6 % (0-6); % Immature Granulocytes 2.5 % (0-0.5); % Lymphocytes 18.2 % (20.5-51.1); % Monocytes 4.2 % (1.7-9.3); % Neutrophils 72.8 % (42.2-75.2); Absolute Basophils 0.1 10^3/uL (0-0.2); Absolute Eosinophils 0.2 10^3/uL (0-0.7); Absolute Immature Granulocytes 0.2 10^3/uL (0-0.05); Absolute Lymphocytes 1.7 10^3/uL (1.2-3.4); Absolute Monocytes 0.4 10^3/uL (0.1-0.6); Absolute Neutrophils 6.9 10^3/uL (1.4-6.5); Hematocrit 26.3 % (37.0-47.0); Hemoglobin 8.6 g/dL (12.0-16.0); Mean Corp Hgb Conc. 32.7 g/dL (33.0-37.0); Mean Corpuscular Hgb 28.2 pg (27.0-31.0); Mean Corpuscular Volume 86.2 fL (81.0-99.0); Mean Platelet Volume 9.6 fL (7.4-10.4); Nucleated Red Blood Cells % 0.2 %; Platelet Count 413 10^3/uL (130-400); Red Blood Cell Count 3.05 10^6/uL (4.20-5.40); Red Cell Dist. Width 16.3 % (11.5-14.5); White Blood Cell Count 9.5 10^3/uL (4.8-10.8)
--- NOTE | 2024-08-18 05:29 | PTCARENOTE ---
Increased alertness noted, Pt more engaging and agreeable to nursing care. Pt reports improvement in pain management. Bloody drainage noted from midline incision, cleansed with Vashe and saline. Dry sterile ABD loosley taped over wound.
Ileostomy red and budded with 100ml's liquid brown stool emptied. Temp of 1--.5 overnight and noted tachycardia that improved with tylenol administration. AAO x 3; NSR on monitor, 92-95% on RA. Will continue to monitor and assess.
[2024-08-18 05:45] LABS: ALT (SGPT) 16 U/L (0-35); AST (SGOT) 19 U/L (14-36); Albumin 2.4 g/dl (3.5-5.0); Alkaline Phosphatase 468 U/L (38-126); Blood Urea Nitrogen 11 mg/dl (7-17); Calcium 8.3 mg/dl (8.4-10.2); Carbon Dioxide 25 mmol/L (22-30); Chloride 101 mmol/L (98-107); Estimated Creatinine Clearance 104 ml/min; Glucose 101 mg/dl (70-99); Magnesium 1.9 mg/dl (1.6-2.3); Sodium 134 mmol/L (135-145); Total Bilirubin 0.2 mg/dl (0.2-1.3); Total Protein 5.3 g/dl (6.3-8.2); Triglycerides 167 mg/dl (10-149); eGFR > 60.00
[2024-08-18 06:04] LABS: Glucose - Point of Care 90 mg/dl (70-99)
[2024-08-18] MEDS: DILAUDID PCA 30 IV (07:57)
[2024-08-18] MEDS: NSS (PRESERVATIVE FREE) 10 ML IV ×2 (08:17→20:14)
[2024-08-18] MEDS: PROTONIX IV 40 MG IV ×2 (08:17→20:14)
[2024-08-18] MEDS: ZOLOFT 75 MG PO (08:17)
[2024-08-18] MEDS: OSCAL 500 + D 500 MG PO (08:17)
[2024-08-18] MEDS: OFIRMEV 100 IV ×3 (08:17→22:22)
--- NOTE | 2024-08-18 09:28 | W.PN.CRS1 ---
Today's Communication / Plan
-
full liquids
tpn
Assessment/Plan
-
54-year-old female with PMH of indeterminate colitis (first diagnosed in 2003; received 1 dose of Remicade at that time and then was treated with Asacol for 1 year; she had repeated flares in 2009, 2010 and 2011 for which she received steroids and
was switched to mesalamine derivatives; in 2018, she reports a colonoscopy for which she was told she was in remission and her medications were stopped; she was recently admitted to [facility] in June with a recurrent flare; she was treated
with IV steroids and received a dose of Remicade on 07/14; she was discharged with a steroid taper) who presented to [place] ED on 07/26 with persistent abdominal pain and loose stools, averaging 6-10/day, since her discharge from [facility].
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
Initially patient declining surgery. Attempted medical management with IV steroids with some improvement; however condition declined necessitating emergent OR as pneumoperitoneum was noted.
POD 11 total abdominal colectomy with end ileostomy, IntraOp consult to LIBRARIAN SPECIALIST who performed MP/BSO
Worsening abdominal pain on 08/09 with n/v. CT imaging repeated and consistent with ileus. NGT was place with bilious/feculent outputs noted. Some improvement in pain with NGT placement but still persistent.
Await bowel recovery
08/12- fever workup negative
08/15- IR drain into LUQ abscess
08/17- NGT removed
Tmax 100.5
WBC 9.5
Hgb 8.6
� Advance diet to fulls with ensure.
- TPN for malnutrition - will continue until tolerates solid foods
- PPI for GI ppx
� Continue pain control; continue lidocaine patch, Ofirmev IV. On dilaudid INFERTILITY MEDICAL ASSISTANT given amount of pain.
� Continue IV Zosyn for a few more days
� Continue DVT PPx with Lovenox
� Appreciate hospitalist
- LUQ abscess cultures pending
-Will need eventual input from GI regarding long-term management of IBD
-Appreciate oncology consult (neuroendocrine tumor found on pathology)
Subjective Data
Procedure
08/05/24 Ex lap with total abdominal colectomy with end-ileostomy and MP BSO
Subjective Data
Date of Service: August 18, 2024
Patient states she feels better today because the NGT is out. She still has abdominal pain but it is improved. She has not been that hungry. She denies nausea or vomiting. Her last rectal discharge was two days ago and non-bloody.
Objective Data
-
Vital Signs
Temp Pulse Resp BP Pulse Ox
100.2 F 104 19 99/74 95
08/18/24 07:25 08/18/24 04:00 08/18/24 07:15 08/18/24 04:00 08/18/24 07:15
Intake & Output
08/17/24 08/18/24 08/19/24
06:59 06:59 06:59
Intake Total 3373 / 3373
Output Total 2184 / 2184
Balance 1189 / 1189
Intake:
Oral fluids 805 / 805
IV fluids (Total) 960 / 960
IV piggybacks 500 / 500
TPN/PPN 1098 / 1098
Amount instilled into Drain (
Total)
Left Upper Abdomen Placed in IR
Amount instilled into GI Tube (
Total)
[place] Sump
Blood Product Amount Infused (
mL)
Packed Rbc Leukoreduced Unit
[id number]
Output:
Liquid stool amount 400 / 400
Ileostomy 400 / 400
Drain Output (Total) 34 / 34
Left Lower Abdomen Kennedy-
[place]
Left Upper Abdomen Placed in IR
Gastrointestinal tube output (
Total)
[place] Sump
Urine, Voided 0 / 1750
Other:
Number of approximated SMALL 1
amounts of urine
Number of approximated MODERATE 1
amounts of urine
Lab Results
08/18/24 04:53
08/18/24 04:53
Physical Exam
-
General: No Acute Distress and AOx3
Abdomen: Soft, Non Distended, Tender (around midline incision) and Other (L IR drain: manzano pus, L OR JAXSON drain: serous)
Skin: Warm and Dry
Wound: Dressing in Place
--- NOTE | 2024-08-18 09:34 | W.PN.HOSP.TC ---
Today's Communication/Plan
-
Continue antibiotics
Monitor clinically
Assessment / Plan
Assessment / Plan
Physical Exam
Gen-AAOx3, NAD
HEENT-NC, AT, anicteric, clear oral mm, no evidence of oral thrush, NG tube in place
Neck-supple
CV-reg, no M, +S1/S2
Lungs-clear B/L
Abd-soft, NT, ND, ostomy intact, abdominal dressing with drain
Ext-no edema
Musculoskeletal-no cyanosis, clubbing
Skin-warm and dry
Neuro-grossly non-focal
Psych-calm, cooperative
Assessment/Plan
Sepsis -due to intra-abdominal abscess. CT confirmed small intra-abdominal collections. Largest is left upper quadrant measuring up to 4.7 cm in diameter. Another small collection at the ostomy site measures up to 3.9 cm in diameter. Drain
placed by IR on 08/15. Continue IV Zosyn. Fluid culture pending, Gram stain shows polymicrobial organisms. ID consulted, appreciate their evaluation and recommendations.
Left ear pain -looks normal on exam. ENT input noted. Warm compresses. Pain possibly related to NG tube. Improves with Tylenol.
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 Given dose of Remicade in [facility] late June, discharged with prescription for mesalamine that she did not fill, and Steroid taper.
Abdominal pain has significantly improved. She does look comfortable. Dilaudid ACID SUPERVISOR as per colorectal surgery. IV Tylenol [id number].
Pneumoperitoneum -underwent total abdominal colectomy with end ileostomy 08/05. Currently diet advanced to full liquids, getting TPN for postoperative ileus. JAXSON drain. Continue analgesics, ACID SUPERVISOR. Currently on IV Zosyn. Abdominal fluid culture from
the OR 08/05 shows polymicrobial growth, culture reviewed. Ileostomy with output.
Post-Surgical Hypotension -blood pressure now improved.
-Possibly from operative blood loss anemia
-Tranexamic acid 1 g on 08/07/24
Hyponatremia -present on admission. Continue monitor. 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
Acute normocytic anemia at least partly due to GI blood loss. Hemoglobin improved. Status post multiple blood transfusions.
Large degenerating fibroid - status post MP BSO intraoperatively on 08/05/24
-Follow-up with urogynecology outpatient (colorectal surgery discussed this with Dr. Dickson of outpatient urogynecology)
Depression
-Zoloft increased by psychiatry
-Appreciate psychiatry
Full code
Dispo -anticipate SNF on discharge.
DVT Prophylaxis: SCDs and Lovenox.
Anticipated Discharge: > 48 hours
Subjective/Interval History
-
Date of Service: August 18, 2024
Patient was seen and examined. She reported her pain is overall much better, denied any new symptoms or complaints.
Objective Data
-
Labs:
Laboratory Results
08/18/24
04:53
WBC 9.5
Hgb 8.6 L
Hct 26.3 L
Plt Count 413 H
Sodium 134 L
Potassium 5.0
Chloride 101
Carbon Dioxide 25
BUN 11
Creatinine 0.4 L
Glucose 101 H
Calcium 8.3 L
Total Bilirubin 0.2
AST 19
ALT 16
Alkaline Phosphatase 468 H
Vital Signs:
Vital Signs
Temp Pulse Resp BP Pulse Ox
100.2 F 104 19 99/74 95
08/18/24 07:25 08/18/24 04:00 08/18/24 07:15 08/18/24 04:00 08/18/24 07:15
I&O
08/17/24 08/18/24 08/19/24
06:59 06:59 06:59
Intake Total 3373 / 3373
Output Total 2184 / 2184
Balance 1189 / 1189
[2024-08-18 11:21] LABS: Glucose - Point of Care 116 mg/dl (70-99)
--- NOTE | 2024-08-18 12:00 | CM ---
Patient who is homeless with Dx Pneumoperitoneum s/p total abdominal colectomy with end-ileostomy, anemia s/p transfusions, sepsis, depression. Room air. NGT out yesterday. Full liquids/TPN. IR Drain LUQ abscess, JAXSON Drain. Receiving IV Abx,
Dilaudid COMMERCIAL GREEN RETROFIT ARCHITECT. PT/OT recommend skilled rehab. Seen by ostomy nurse.
SNF referrals reviewed; there are 4 accepting SNFs.
Patient previously accepted by [facility]. The for report [phone], fax [phone].
Met with patient who stated she was optimistic about her progress. She reaffirms that she wants to go to [facility] at d/c.
Patient stated again that she is interested in pursuing SS disability (see prior CM notes 08/04/24 re; prior discussion). CM encouraged her to go on the SS website and complete the application using her iPad. Patient says she plans on discussing
disability with her GI doctor.
Plan [facility] SNF when medically ready.
[2024-08-18] MEDS: XANAX 0.25 MG PO (12:37)
--- NOTE | 2024-08-18 12:58 | WOUNDNOTE ---
[facility] RN note: Patient in recliner chair with air chair cushion. Skin on heels intact. Stoma pink and slightly budded. Peristomal skin intact. She has some skin creases at 3 and 9 o'clock while sitting. Reinstructed patient pouch change with Pete
wafer # [id number], Flora seal and [place] pouch # [id number]. t/c SPD and ordered more ostomy supplies. Patient may need the 2 3/4 inch 2 piece or a soft convex wafer. Next appliance change planned on .
--- NOTE | 2024-08-18 15:32 | PTCARENOTE ---
Assumed care of patient at beginning of this shift from previous RN with TPN infusing and VIDEO GAME TECHNICIAN in use. Patient OOB to bathroom then chair with PT/OT; very anxious and tearful t/o therapy. Administered Xanax and patient then seen by WOC for appliance
change. Medicated with ofirmiv as per prn order. See worklist for full assessment and vital signs; see MAR for med administration.
[2024-08-18] MEDS: LOVENOX 40 MG SC (17:15)
[2024-08-18 17:23] LABS: Glucose - Point of Care 115 mg/dl (70-99)
[2024-08-18] MEDS: Parenteral Nutrition, Central 1110 IV (20:45)
--- NOTE | 2024-08-18 22:51 | PTCARENOTE ---
Caring for patient overnight 7p-7a. Have been assessing pt pain since the start of the shift. Pt always states it is 8/10. Tried reassessing her pain shortly after she would use her TRIPOLER pump, pt still states its 8/10. Pt seems comfortable in bed,
not grimacing, moaning or showing any signs of pain. Pt is also drowsy, but RR are good 19RR, O2 94%, BP running soft, will monitor. Ofirmev also given, which pt has been requesting.
[2024-08-19] VITALS (11 sets, daily range): BP systolic 95–124; BP diastolic 62–87; BMI 22.0
[2024-08-19] LABS: Glucose - Point of Care 115 mg/dl (70-99)
[2024-08-19] MEDS: OFIRMEV 100 IV ×3 (04:47→16:26)
[2024-08-19] MEDS: ZOSYN 50 IV (05:15)
[2024-08-19] MEDS: DILAUDID PCA 30 IV (06:32)
[2024-08-19 06:36] LABS: Glucose - Point of Care 123 mg/dl (70-99)
[2024-08-19] MEDS: NOVOLOG FLEXPEN-LOW RESISTANCE SC ×3 (07:27→18:01)
[2024-08-19] MEDS: ZOLOFT 75 MG PO (08:05)
[2024-08-19] MEDS: NSS (PRESERVATIVE FREE) 10 ML IV ×2 (08:05→20:26)
[2024-08-19] MEDS: PROTONIX IV 40 MG IV ×2 (08:05→20:25)
[2024-08-19] MEDS: OSCAL 500 + D 500 MG PO (08:05)
--- NOTE | 2024-08-19 08:29 | W.PN.CRS1 ---
Today's Communication / Plan
-
Stop TPN after this bag. Encourage po.
?transfer out of IMU.
Assessment/Plan
-
POD 12.
1. tolerating 50 % of full trays without nausea and with stoma function. Will stop TPN after this bag. Anticipate advancing diet tomorrow.
2. afebrile with reasonable vitals. Continue Zosyn for 2 more days.
3. JAXSON with SS output; LUQ IR drain still murky. Will pull JAXSON tomorrow.
4. ?does patient need IBD maintenance meds/prophylaxis. GI to decide.
5. ok for transfer out of IMU from surgical perspective.
6. continue other measures.
Subjective Data
Procedure
08/05/24 Ex lap with total abdominal colectomy with end-ileostomy and MP BSO
Subjective Data
Date of Service: August 19, 2024
Awake. Feeling 'ok'
No nausea.
Admits to finishing '50 %' of her trays.
Objective Data
-
Vital Signs
Temp Pulse Resp BP Pulse Ox
98.7 F 94 16 99/73 93
08/19/24 07:25 08/19/24 08:00 08/19/24 08:00 08/19/24 08:00 08/19/24 08:00
Intake & Output
08/18/24 08/19/24 08/20/24
06:59 06:59 06:59
Intake Total 3373 / 3373 1344 / 1344
Output Total 2184 / 2184 1795 / 1795
Balance 1189 / 1189 -451 / -451
Intake:
Oral fluids 805 / 805
IV fluids (Total) 960 / 960 480 / 480
IV piggybacks 500 / 500 300 / 300
TPN/PPN 1098 / 1098 564 / 564
Amount instilled into Drain (
Total)
Left Upper Abdomen Placed in IR
Output:
Liquid stool amount 400 / 400 250 / 250
Ileostomy 400 / 400 250 / 250
Drain Output (Total) 34 / 34
Left Lower Abdomen Kennedy-
Kern
Left Upper Abdomen Placed in IR
Urine, Voided 1750 / 1750 1530 / 1530
Other:
Number of approximated SMALL 1
amounts of urine
Number of approximated MODERATE 1 1
amounts of urine
Physical Exam
-
General: No Acute Distress
Chest: Clear
Cardiovascular: Regular Rate & Rhythm
Abdomen: Soft, Tender (minimal) and Other (stoma viable with output; JAXSON with SS; LUQ IR drainage manzano/opaque)
Incision: Clear, Dry, Intact and No Skin Erythema
[2024-08-19 08:37] LABS: % Basophils 0.7 % (0-2); % Eosinophils 2.4 % (0-6); % Immature Granulocytes 3.2 % (0-0.5); % Lymphocytes 22.5 % (20.5-51.1); % Monocytes 4.6 % (1.7-9.3); % Neutrophils 66.6 % (42.2-75.2); Absolute Basophils 0.1 10^3/uL (0-0.2); Absolute Eosinophils 0.2 10^3/uL (0-0.7); Absolute Immature Granulocytes 0.2 10^3/uL (0-0.05); Absolute Lymphocytes 1.7 10^3/uL (1.2-3.4); Absolute Monocytes 0.4 10^3/uL (0.1-0.6); Absolute Neutrophils 5.1 10^3/uL (1.4-6.5); Hematocrit 24.7 % (37.0-47.0); Hemoglobin 8.2 g/dL (12.0-16.0); Mean Corp Hgb Conc. 33.2 g/dL (33.0-37.0); Mean Corpuscular Hgb 29.5 pg (27.0-31.0); Mean Corpuscular Volume 88.8 fL (81.0-99.0); Mean Platelet Volume 9.7 fL (7.4-10.4); Nucleated Red Blood Cells % 0 %; Platelet Count 382 10^3/uL (130-400); Red Blood Cell Count 2.78 10^6/uL (4.20-5.40); Red Cell Dist. Width 15.9 % (11.5-14.5); White Blood Cell Count 7.6 10^3/uL (4.8-10.8)
--- NOTE | 2024-08-19 08:58 | W.PN.UPDATE ---
Update Note
Progress Note Update
No role for adjuvant therapy
Oncology will sign off, please call with any questions.
[2024-08-19 09:29] LABS: ALT (SGPT) 15 U/L (0-35); AST (SGOT) 22 U/L (14-36); Albumin 2.3 g/dl (3.5-5.0); Alkaline Phosphatase 411 U/L (38-126); Blood Urea Nitrogen 12 mg/dl (7-17); Calcium 8.2 mg/dl (8.4-10.2); Carbon Dioxide 24 mmol/L (22-30); Chloride 99 mmol/L (98-107); Estimated Creatinine Clearance 104 ml/min; Glucose 93 mg/dl (70-99); Magnesium 1.9 mg/dl (1.6-2.3); Potassium 4.6 mmol/L (3.5-5.1); Sodium 132 mmol/L (135-145); Total Bilirubin 0.2 mg/dl (0.2-1.3); Total Protein 4.9 g/dl (6.3-8.2); eGFR > 60.00
--- NOTE | 2024-08-19 10:45 | CON.ID ---
Consultation
-
Date/Time Consultation Requested: August 18, 20241955
Date/Time Consultation Performed: August 19, 2024 1050
Requesting Provider: Dr. Sandor Mansfield
Performing Provider: Dr. Hetal See
Reason for Consultation: Intra-abdominal abscess
Chief Complaint / Past History
History of Present Illness
54-year-old female with history inflammatory bowel disease status post 1 dose of Remicade June 2024 at [facility], then steroid taper and mesalamine who presented to the hospital on July 26 with 2 week history of bloody diarrhea and abd
pain. CAT scan showed diffuse colonic and rectal wall thickening consistent with diffuse colitis. C. difficile negative, stool cultures negative. Initially patient was afebrile. She developed ileus/megacolon. She then started having
intermittent fevers. August 05, abdominal x-ray showed new moderate pneumoperitoneum. She was taken to the OR, requiring MP/BSO to access the bowel and she underwent subtotal colectomy, end ileostomy with finding of perforation at the cecum and
pancolitis. Patient was started on Zosyn the same day August 05. OR cultures grew MSSA, Streptococcus species, E. coli and Klebsiella. August 12, she spiked temperature 101. She continued to be febrile the next day. Repeat CAT scan of the
abdomen pelvis August 15 showed intra-abdominal fluid collections the largest in the in the left upper quadrant containing gas. August 15 status post percutaneous drain placement into the left upper quadrant fluid collection. She remains on
Zosyn. Fever resolved. Leukocytosis resolved. The pathology of the terminal ileum showed carcinoid tumor. Today she is feeling better. Still has some postop abdominal pain. No further bloody stool. No nausea. No shortness of breath. Has
mild cough. No dysuria or flank pain.
Past History
Additional Past Medical History:
Inflammatory bowel disease, not on maintenance tx
GERD
fibroids
Psoriasis
Bilateral breast augmentation
Allergy History:
No Known Allergies Allergy (Unverified 07/25/24 20:12)
Medications Reviewed: Yes
Current Antibiotics:
Zosyn started 08/05/24
Social History
Tobacco: Non-Smoker
Alcohol: Former
Drug: None
Personal: Single
Living: Homeless
Employment: Employed (Worked in a [employer])
Family History
Family History: Not Pertinent
Review of Systems
Review of Systems
HEENT: Negative Sinus Problems, Headache or Pharyngitis
Cardiovascular: Negative Chest Pain or Dyspnea
Respiratory: Negative Dyspnea
Gasteroenterology: Negative Nausea
Genital / Urological: Negative Dysuria or Flank Pain
Endocrine: Weakness
Musculoskeletal: Negative Arthralgias
Neurological: Negative Dizziness
All systems: All other systems were reviewed and were negative
Vital Signs
Temp Pulse Resp BP Pulse Ox
98.7 F 94 20 99/73 94
08/19/24 07:25 08/19/24 08:00 08/19/24 08:00 08/19/24 08:00 08/19/24 08:06
Physical Exam
Physical Exam
Constitutional: No Acute Distress and Comfortable
Eyes: No Conjunctival Hemorrhage and Sclera Anicteric
Cardiovascular: Regular Rate and S1/S2
Pulmonary: Other (Decreased breath sounds at the bases)
Gastrointestinal: Soft, Tender (mild), Non Distended and Other (Incision - scant bleeding. 08/15 JAXSON drain - serous fluid; JAXSON drain #2 serous cloudy fluid)
Extremities: Negative Edema
Neurological: AO x 3
Lab / Diagnostic Study Results
08/19/24 08:19
08/19/24 08:19
Abs Immat Gran (auto) 0.2 10^3/uL (0-0.05) H 08/19/24 08:19
Absolute Neuts (auto) 5.1 10^3/uL (1.4-6.5) 08/19/24 08:19
Absolute Lymphs (auto) 1.7 10^3/uL (1.2-3.4) 08/19/24 08:19
Absolute Monos (auto) 0.4 10^3/uL (0.1-0.6) 08/19/24 08:19
Absolute Basos (auto) 0.1 10^3/uL (0-0.2) 08/19/24 08:19
Total Counted 100 08/06/24 03:32
Immature Gran % 3.2 % (0-0.5) H 08/19/24 08:19
Neutrophils % 66.6 % (42.2-75.2) 08/19/24 08:19
Lymphocytes % 22.5 % (20.5-51.1) 08/19/24 08:19
Monocytes % 4.6 % (1.7-9.3) 08/19/24 08:19
Eosinophils % 2.4 % (0-6) 08/19/24 08:19
Basophils % 0.7 % (0-2) 08/19/24 08:19
Abs Neuts (Manual) 23.6 10^3/uL (1.4-6.5) H 08/06/24 03:32
Segmented Neutrophils 78 % (42-75) H 08/06/24 03:32
Band Neutrophils 17 % (0-3) H D 08/06/24 03:32
Lymphocytes (Manual) 3 % (20-51) L 08/06/24 03:32
ESR 92 mm/hour (0-20) H 07/26/24 06:32
PT 17.4 Sec (11.4-14.6) H 08/15/24 14:04
INR 1.44 08/15/24 14:04
Lactic Acid 1.0 mmol/L (0.7-2.0) 08/11/24 21:02
C-Reactive Protein 226.90 mg/L (0.0-10.00) H 08/07/24 06:09
Ur Squamous Epith Cells 6-10 /LPF (Few) 08/12/24 09:08
Microbiology Results
Micro:
11/01/24 16:25 Wound Culture - Final
Abdomen Enterococcus faecalis
Escherichia coli
Klebsiella pneumoniae
Gram Stain - Final
08/12/24 10:30 Blood Culture - Final
Blood/Venous No Growth - Final Report
08/12/24 10:01 Blood Culture - Final
Blood/Venous No Growth - Final Report
08/05/24 14:00 Wound Culture - Final
Abdomen Escherichia coli
Klebsiella pneumoniae
S aureus-Methicillin Sensitive
Streptococcus species
Gram Stain - Final
08/05/24 14:00 Anaerobic Culture - Final
Abdomen
07/26/24 15:09 Salmonella/Shigella Culture - Final
Feces/Stool No Salmonella, Shigella, Aeromonas or Plesiomonas species
isolated.
Campylobacter Culture - Final
No Campylobacter species isolated.
- Final
NO YERSINIA SPECIES ISOLATED
Shiga Toxin Test - Final
No E. coli Shiga Toxin 1 or 2 detected.
Stool Leukocytes - Final
07/26/24 15:09 Cryptosporidium/Giardia - Final
Feces/Stool Negative for Cryptosporidium and/or Giardia Lamblia
antigens.
C. difficile GDH Antigen & Toxins - Final
Negative for toxigenic C.difficile
07/26/24 CT a/p: Diffuse colonic and rectal wall thickening with some stranding in the adjacent fat consistent with diffuse colitis and likely secondary to known ulcerative colitis.10.8 x 8.4 cm peripherally calcified lesion within the uterus,
likely large, partially calcified fibroid.
08/04/24 AXR: There is new bowel wall thickening with some thumbprinting in the mid descending colon such as may be seen with inflammatory bowel disease or ischemia.
The bowel gas pattern is otherwise not significantly changed with differential diagnosis including ileus and Britt's syndrome
08/09/24 CT a/p: Interval postoperative changes as described. Probable diffuse postoperative ileus and pneumoperitoneum. No darrell transition point/obstruction. Fluid distention of the distal esophagus, new from prior and likely reflects
gastroesophageal reflux.
08/15/24 CT a/p: Portable small intra-abdominal collections as above. Largest in the left upper quadrant contains gas and fluid and measures up to 4.7 cm in diameter, suspicious for abscess. Another small triangular collection via the ostomy site
measures up to 3.9 cm in diameter and may represent small abscess.
Assessment / Plan
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
- s/p subtotal colectomy, end ileostomy, MP, BSO 08/05/24
- OR cx : MSSA, E. coli, Kleb pneumoniae, Strep
# Intra-abdominal abscess
-s/p perc drain 08/15/2024
-Abscess cx: E. faecalis, E. coli, Kleb pneumoniae
Recommendations:
- Narrow Zosyn to Unasyn.
-At time of discharge, can transition to Augmentin.
[2024-08-19 12:21] LABS: Glucose - Point of Care 118 mg/dl (70-99)
[2024-08-19] MEDS: UNASYN IV ×2 (12:43→18:30)
--- NOTE | 2024-08-19 13:05 | PTCARENOTE ---
Assumed care for patient during the day, received report via RN. Pt AAOx3 tearful this morning. Pt expresses concern for new ileostomy. Pt normal sinus/tachycardic on tele. Pt 96% on room air RR 19. Pt using SPECIMEN PROCESSOR see DEC. Pt expresses 8/10 pain. Pt
does not appear distressed, no grimacing, or moaning out in pain. TPN gtt running. Pt tolerating a full liquid diet, drinking ensure ordered. Full CHG bath, oral care, and shampoo cap given. Right PICC dressing clean, dry, and intact. Pt calls
appropriately. Call quiñones is within reach.
--- NOTE | 2024-08-19 13:41 | W.PN.HOSP.TC ---
Today's Communication/Plan
-
Transfer to tele (colorectal surgery said that it is okay to transfer patient to telemetry)
Pain is better, have asked clinical pharmacist for help with weaning off REEL TENDER pump
Encourage PO intake
No more TPN after current bag is finished
Continue Unasyn
Assessment / Plan
Assessment / Plan
Physical Exam
Gen-AAOx3, NAD
HEENT-NC, AT, anicteric, clear oral mm, no evidence of oral thrush, NG tube in place
Neck-supple
CV-reg, no M, +S1/S2
Lungs-clear B/L
Abd-soft, NT, ND, ostomy intact, abdominal dressing with drain
Ext-no edema
Musculoskeletal-no cyanosis
Skin-warm and dry
Neuro-grossly non-focal
Psych-calm, cooperative
Assessment/Plan
Sepsis -due to intra-abdominal abscess. CT confirmed small intra-abdominal collections. Largest is left upper quadrant measuring up to 4.7 cm in diameter. Another small collection at the ostomy site measures up to 3.9 cm in diameter. Drain
placed by IR on 08/15. OR cultures noted (MSSA, E. coli, Kleb pneumoniae, Strep) and abscess cultures (E. faecalis, E. coli, Kleb pneumoniae). ID consulted, appreciate their evaluation and recommendations: narrow Zosyn to Unasyn, with plan for
Augmentin on discharge.
Left ear pain -looks normal on exam. ENT input noted. Warm compresses. Pain possibly related to NG tube. Improves with Tylenol.
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 Given dose of Remicade in [facility] late June, discharged with prescription for mesalamine that she did not fill, and Steroid taper.
Abdominal pain has significantly improved. She does look comfortable. Dilaudid REEL TENDER as per colorectal surgery -- discussing with clinical pharmacist regarding tapering regimen for pain pump. IV Tylenol lylyzu-boy-awaly. Good tolerance of Full
Liquids diet -- per colorectal surgery, stop TPN after current bag is completed. Will need to re-consult GI regarding IBD maintenance meds/prophylaxis.
Pneumoperitoneum -underwent total abdominal colectomy with end ileostomy 08/05. Currently diet advanced to full liquids, getting TPN for postoperative ileus. JAXSON drain. Continue analgesics, REEL TENDER. Currently on IV antibiotics. Abdominal fluid
culture from the OR 08/05 shows polymicrobial growth, culture reviewed. Ileostomy with output.
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
Post-Surgical Hypotension -blood pressure now improved overall.
-Still with some soft blood pressure readings.
-Possibly from operative blood loss anemia
-Tranexamic acid 1 g on 08/07/24
-Wean off narcotic pain medications as much as possible
Hyponatremia -present on admission. Continue monitor. 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
Acute normocytic anemia at least partly due to GI blood loss. Hemoglobin improved. Status post multiple blood transfusions.
Large degenerating fibroid - status post MP BSO intraoperatively on 08/05/24
-Follow-up with urogynecology outpatient (colorectal surgery discussed this with Dr. Dickson of outpatient urogynecology)
Depression
-Zoloft increased by psychiatry
-Appreciate psychiatry
Full code
Dispo -anticipate SNF on discharge.
DVT Prophylaxis: SCDs and Lovenox.
Anticipated Discharge: > 48 hours
Subjective/Interval History
-
Date of Service: August 19, 2024
Patient was seen and examined. She reported abdominal pain has much improved and she has not symptoms or complaints.
Objective Data
-
Labs:
Laboratory Results
08/19/24
08:19
WBC 7.6
Hgb 8.2 L
Hct 24.7 L
Plt Count 382
Sodium 132 L
Potassium 4.6
Chloride 99
Carbon Dioxide 24
BUN 12
Creatinine 0.4 L
Glucose 93
Calcium 8.2 L
Total Bilirubin 0.2
AST 22
ALT 15
Alkaline Phosphatase 411 H
Vital Signs:
Vital Signs
Temp Pulse Resp BP Pulse Ox
98.5 F 102 14 99/75 95
08/19/24 11:46 08/19/24 12:00 08/19/24 12:00 08/19/24 12:00 08/19/24 13:26
I&O
08/18/24 08/19/24 08/20/24
06:59 06:59 06:59
Intake Total 3373 / 3373 1344 / 1344 420 / 420
Output Total 2184 / 2184 1795 / 1795
Balance 1189 / 1189 -451 / -451 420 / 420
--- NOTE | 2024-08-19 14:56 | PTCARENOTE ---
Pt transported to [address] [place] [address] via stretcher. Report called and given to JOSEFINA Bhandari. Pts belongings collected and transported with the patient.
--- NOTE | 2024-08-19 16:00 | PTCARENOTE ---
Received pt from IMU. TPN running into right PICC line, VSS, COVER MAKING MACHINE OPERATOR pump running into left forearm, ileostomy stoma red and budded, two JAXSON drains in place. Pt resting comfortably in bed with call quiñones within reach, oriented to room. Bed alarm in place.
[2024-08-19 17:10] LABS: Glucose - Point of Care 92 mg/dl (70-99)
[2024-08-19] MEDS: LOVENOX 40 MG SC (18:30)
[2024-08-19] MEDS: ROXICODONE 10 MG PO (18:30)
[2024-08-19 21:20] LABS: Glucose - Point of Care 122 mg/dl (70-99)
[2024-08-20] VITALS (7 sets, daily range): BP systolic 95–113; BP diastolic 31–72; PULSE 103; O2SAT 94; BMI 21.0
[2024-08-20] MEDS: ROXICODONE 10 MG PO ×5 (01:00→23:54)
[2024-08-20] MEDS: UNASYN IV ×5 (01:00→23:54)
[2024-08-20] MEDS: NOVOLOG FLEXPEN-LOW RESISTANCE SC ×3 (01:00→11:48)
[2024-08-20 05:13] LABS: % Basophils 0.6 % (0-2); % Eosinophils 3.2 % (0-6); % Lymphocytes 30.8 % (20.5-51.1); % Neutrophils 57.4 % (42.2-75.2); Absolute Basophils 0.1 10^3/uL (0-0.2); Absolute Eosinophils 0.3 10^3/uL (0-0.7); Absolute Immature Granulocytes 0.3 10^3/uL (0-0.05); Absolute Lymphocytes 2.7 10^3/uL (1.2-3.4); Absolute Monocytes 0.4 10^3/uL (0.1-0.6); Hematocrit 24.5 % (37.0-47.0); Hemoglobin 8.1 g/dL (12.0-16.0); Mean Corp Hgb Conc. 33.1 g/dL (33.0-37.0); Mean Corpuscular Volume 84.8 fL (81.0-99.0); Mean Platelet Volume 9.7 fL (7.4-10.4); Nucleated Red Blood Cells % 0 %; Platelet Count 432 10^3/uL (130-400); Red Blood Cell Count 2.89 10^6/uL (4.20-5.40); Red Cell Dist. Width 15.9 % (11.5-14.5); White Blood Cell Count 8.7 10^3/uL (4.8-10.8)
[2024-08-20 05:36] LABS: ALT (SGPT) 18 U/L (0-35); AST (SGOT) 21 U/L (14-36); Albumin 2.4 g/dl (3.5-5.0); Alkaline Phosphatase 460 U/L (38-126); Blood Urea Nitrogen 9 mg/dl (7-17); Calcium 8.2 mg/dl (8.4-10.2); Carbon Dioxide 27 mmol/L (22-30); Chloride 96 mmol/L (98-107); Estimated Creatinine Clearance 104 ml/min; Glucose 89 mg/dl (70-99); Magnesium 1.7 mg/dl (1.6-2.3); Phosphorus 3.8 mg/dl (2.5-4.5); Potassium 4.7 mmol/L (3.5-5.1); Sodium 130 mmol/L (135-145); Total Bilirubin 0.2 mg/dl (0.2-1.3); Total Protein 5.2 g/dl (6.3-8.2); eGFR > 60.00
[2024-08-20 07:10] LABS: Glucose - Point of Care 99 mg/dl (70-99)
[2024-08-20] MEDS: NSS (PRESERVATIVE FREE) 10 ML IV ×2 (08:22→21:39)
[2024-08-20] MEDS: OSCAL 500 + D 500 MG PO (08:22)
[2024-08-20] MEDS: PROTONIX IV 40 MG IV ×2 (08:23→21:40)
[2024-08-20] MEDS: ZOLOFT 75 MG PO (08:23)
--- NOTE | 2024-08-20 09:09 | W.PN.CRS1 ---
Today's Communication / Plan
-
advance diet to low residue
continue antibiotics
Assessment/Plan
-
POD 13.
1. Advance diet to low residue with ensure
2. afebrile with reasonable vitals. Continue Zosyn for 1 more day.
3. JAXSON with SS output; LUQ IR drain still murky. Will pull JAXSON likely tomorrow.
4. ?does patient need IBD maintenance meds/prophylaxis. GI to decide.
5. Iv antibiotics per ID
6. Transitioning off of EMBLEM MAKER per hospitalist
7. Will follow
8. Dispo planning
Subjective Data
Procedure
08/05/24 Ex lap with total abdominal colectomy with end-ileostomy and MP BSO
Subjective Data
Date of Service: August 20, 2024
Patient states she feels 'okay'. She feels much improved since admission. She has no nausea or vomiting. Her pain is 'okay'.
Objective Data
-
Vital Signs
Temp Pulse Resp BP Pulse Ox
98.9 F 103 16 97/66 91
08/20/24 07:05 08/20/24 07:05 08/20/24 07:05 08/20/24 07:05 08/20/24 07:05
Intake & Output
08/19/24 08/20/24 08/21/24
06:59 06:59 06:59
Intake Total 1344 / 1344 1250 / 1250
Output Total 1795 / 1795 477 / 477
Balance -451 / -451 773 / 773
Intake:
Oral fluids 820 / 820
IV fluids (Total) 480 / 480
IV piggybacks 300 / 300 220 / 220
TPN/PPN 564 / 564 200 / 200
Amount instilled into Drain (
Total)
Left Upper Abdomen Placed in IR
Output:
Liquid stool amount 250 / 250 145 / 145
Ileostomy 250 / 250 145 / 145
Drain Output (Total)
Left Lower Abdomen Kennedy-
Kern
Left Upper Abdomen Placed in IR
Urine, Voided 1530 / 1530 300 / 300
Other:
Number of approximated MODERATE 1
amounts of urine
Number of approximated LARGE 1
amounts of urine
Lab Results
08/20/24 04:53
08/20/24 04:53
Physical Exam
-
General: No Acute Distress and AOx3
Abdomen: Soft, Non Distended, Tender (mild around midline incision) and Other (colostomy warm and pink)
Skin: Warm and Dry
Incision: Clear, Dry, Intact
[2024-08-20 11:06] LABS: Glucose - Point of Care 99 mg/dl (70-99)
--- NOTE | 2024-08-20 12:48 | CM ---
Patient seen at bedside.
low residue diet, off TPN, transitioning off LENS MOUNTER
Updated referral to [facility] in [facility]-spoke with Danielle liaison
CM will need to get insurance authorization
PLAN: SNF when medically stable.
An[facility]bal Schuster
Report #: [phone], fax # [phone].
--- NOTE | 2024-08-20 14:36 | W.PN.ID1 ---
Date of Service
Date of Service: August 20, 2024
Today's Communication
Continue Unasyn.
Assessment / Plan
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
- s/p subtotal colectomy, end ileostomy, MP, BSO 08/05/24
- OR cx : MSSA, E. coli, Kleb pneumoniae, Strep
# Intra-abdominal abscess
-s/p perc drain 08/15/2024
-Abscess cx: E. faecalis, E. coli, Kleb pneumoniae
Recommendations:
- Continue Unasyn.
-At time of discharge, can transition to Augmentin 875mg po bid through 09/04/24.
Chief Complaint
-: Other (Intrabdominal abscess.)
Subjective / Review of Systems
No new complaints today.
Vital Signs / Physical Exam
Vital Signs
Vital Signs
Temp Pulse Resp BP Pulse Ox
99.8 F 102 16 101/68 93
08/20/24 11:00 08/20/24 11:00 08/20/24 11:00 08/20/24 11:00 08/20/24 11:00
Physical Exam
Constitutional: No Acute Distress and Comfortable
Cardiovascular: Regular Rate and S1/S2
Pulmonary: Clear
Gastrointestinal: Soft and Non Distended
Extremities: Negative Edema
Objective Data
Lab Data
Lab Results
08/20/24 04:53
08/20/24 04:53
ESR 92 mm/hour (0-20) H 07/26/24 06:32
PT 17.4 Sec (11.4-14.6) H 08/15/24 14:04
INR 1.44 08/15/24 14:04
APTT 44.9 Sec (23.4-35.0) H 08/15/24 14:04
Estimated Creat Clear 104 ml/min 08/20/24 04:53
Lactic Acid 1.0 mmol/L (0.7-2.0) 08/11/24 21:02
Total Bilirubin 0.2 mg/dl (0.2-1.3) 08/20/24 04:53
GGT 897 U/L (12-43) H 07/27/24 08:01
AST 21 U/L (14-36) 08/20/24 04:53
ALT 18 U/L (0-35) 08/20/24 04:53
Alkaline Phosphatase 460 U/L (38-126) H 08/20/24 04:53
C-Reactive Protein 226.90 mg/L (0.0-10.00) H 08/07/24 06:09
Most recent labs reviewed.
Micro Results:
08/15/24 16:25 Wound Culture - Final
Abdomen Enterococcus faecalis
Escherichia coli
Klebsiella pneumoniae
Gram Stain - Final
08/12/24 10:30 Blood Culture - Final
Blood/Venous No Growth - Final Report
08/12/24 10:01 Blood Culture - Final
Blood/Venous No Growth - Final Report
08/05/24 14:00 Wound Culture - Final
Abdomen Escherichia coli
Klebsiella pneumoniae
S aureus-Methicillin Sensitive
Streptococcus species
Gram Stain - Final
08/05/24 14:00 Anaerobic Culture - Final
Abdomen
07/26/24 15:09 Salmonella/Shigella Culture - Final
Feces/Stool No Salmonella, Shigella, Aeromonas or Plesiomonas species
isolated.
Campylobacter Culture - Final
No Campylobacter species isolated.
- Final
NO YERSINIA SPECIES ISOLATED
Shiga Toxin Test - Final
No E. coli Shiga Toxin 1 or 2 detected.
Stool Leukocytes - Final
07/26/24 15:09 Cryptosporidium/Giardia - Final
Feces/Stool Negative for Cryptosporidium and/or Giardia Lamblia
antigens.
C. difficile GDH Antigen & Toxins - Final
Negative for toxigenic C.difficile
07/26/24 CT a/p: Diffuse colonic and rectal wall thickening with some stranding in the adjacent fat consistent with diffuse colitis and likely secondary to known ulcerative colitis.10.8 x 8.4 cm peripherally calcified lesion within the uterus,
likely large, partially calcified fibroid.
08/04/24 AXR: There is new bowel wall thickening with some thumbprinting in the mid descending colon such as may be seen with inflammatory bowel disease or ischemia.
The bowel gas pattern is otherwise not significantly changed with differential diagnosis including ileus and Garland's syndrome
08/09/24 CT a/p: Interval postoperative changes as described. Probable diffuse postoperative ileus and pneumoperitoneum. No darrell transition point/obstruction. Fluid distention of the distal esophagus, new from prior and likely reflects
gastroesophageal reflux.
08/15/24 CT a/p: Portable small intra-abdominal collections as above. Largest in the left upper quadrant contains gas and fluid and measures up to 4.7 cm in diameter, suspicious for abscess. Another small triangular collection via the ostomy site
measures up to 3.9 cm in diameter and may represent small abscess.
--- NOTE | 2024-08-20 16:31 | W.PN.HOSP.TC ---
Today's Communication/Plan
-
Advance diet
Pain control
Assessment / Plan
Assessment / Plan
Physical Exam
Gen-AAOx3, NAD
HEENT-NC, AT, anicteric, clear oral mm, no evidence of oral thrush, NG tube in place
Neck-supple
CV-reg, no M, +S1/S2
Lungs-clear B/L
Abd-soft, NT, ND, ostomy intact, abdominal dressing with drain
Ext-no edema
Musculoskeletal-no cyanosis
Skin-warm and dry
Neuro-grossly non-focal
Psych-calm, cooperative
Assessment/Plan
Sepsis -due to intra-abdominal abscess. CT confirmed small intra-abdominal collections. Largest is left upper quadrant measuring up to 4.7 cm in diameter. Another small collection at the ostomy site measures up to 3.9 cm in diameter. Drain
placed by IR on 08/15. OR cultures noted (MSSA, E. coli, Kleb pneumoniae, Strep) and abscess cultures (E. faecalis, E. coli, Kleb pneumoniae). ID consulted, appreciate their evaluation and recommendations: narrow Zosyn to Unasyn, with plan for
Augmentin 875mg PO bid through 09/04/24.
Left ear pain -looks normal on exam. ENT input noted. Warm compresses. Pain possibly related to NG tube. Improves with Tylenol.
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 Given dose of Remicade in [facility] late June, discharged with prescription for mesalamine that she did not fill, and Steroid taper.
Abdominal pain has significantly improved. She does look comfortable. Dilaudid [employer] as per colorectal surgery -- discussing with clinical pharmacist regarding tapering regimen for pain pump. IV Tylenol [id number]. Advance to Low Residue Diet
-- per colorectal surgery. TPN previously given, now stopped. Will need to re-consult GI regarding IBD maintenance meds/prophylaxis.
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 Currently diet advanced to Low Residue, getting TPN for postoperative ileus. JAXSON drain. Continue analgesics, [employer]. Currently on IV antibiotics. Abdominal fluid
culture from the OR 08/05 shows polymicrobial growth, culture reviewed. Ileostomy with output.
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
Post-Surgical Hypotension -blood pressure now improved overall.
-Still with some soft blood pressure readings.
-Possibly from operative blood loss anemia
-Tranexamic acid 1 g on 08/07/24
-Wean off narcotic pain medications as much as possible
Hyponatremia -present on admission. Continue monitor. 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
Acute normocytic anemia at least partly due to GI blood loss. Hemoglobin improved. Status post multiple blood transfusions.
Large degenerating fibroid - status post MP BSO intraoperatively on 08/05/24
-Follow-up with urogynecology outpatient (colorectal surgery discussed this with Dr. Dickson of outpatient urogynecology)
Depression
-Zoloft increased by psychiatry
-Appreciate psychiatry
Full code
Dispo -anticipate SNF on discharge.
DVT Prophylaxis: SCDs and Lovenox.
Anticipated Discharge: > 48 hours
Subjective/Interval History
-
Date of Service: August 20, 2024
Patient was seen and examined. She reported her pain is controlled, denied any other complaints, tolerating her diet.
Objective Data
-
Labs:
Laboratory Results
08/20/24
04:53
WBC 8.7
Hgb 8.1 L
Hct 24.5 L
Plt Count 432 H
Sodium 130 L
Potassium 4.7
Chloride 96 L
Carbon Dioxide 27
BUN 9
Creatinine 0.4 L
Glucose 89
Calcium 8.2 L
Total Bilirubin 0.2
AST 21
ALT 18
Alkaline Phosphatase 460 H
Vital Signs:
Vital Signs
Temp Pulse Resp BP Pulse Ox
98.4 F 110 14 107/72 94
08/20/24 15:05 08/20/24 15:05 08/20/24 15:12 08/20/24 15:05 08/20/24 15:05
I&O
08/19/24 08/20/24 08/21/24
06:59 06:59 06:59
Intake Total 1344 / 1344 1250 / 1250
Output Total 1795 / 1795 477 / 477 550 / 550
Balance -451 / -451 773 / 773 -540 / -540
[2024-08-20] MEDS: LOVENOX 40 MG SC (17:37)
[2024-08-20] MEDS: DILAUDID PCA 30 IV (21:10)
[2024-08-21 03:43] VITALS: BP 93/69
[2024-08-21 04:54] VITALS: BMI 20.9
[2024-08-21] MEDS: ROXICODONE 10 MG PO ×2 (05:27→12:12)
[2024-08-21] MEDS: UNASYN IV ×4 (05:28→23:12)
[2024-08-21 06:42] LABS: % Basophils 0.7 % (0-2); % Eosinophils 3.6 % (0-6); % Immature Granulocytes 3.7 % (0-0.5); % Lymphocytes 34.7 % (20.5-51.1); % Monocytes 6.4 % (1.7-9.3); % Neutrophils 50.9 % (42.2-75.2); Absolute Basophils 0.1 10^3/uL (0-0.2); Absolute Eosinophils 0.3 10^3/uL (0-0.7); Absolute Immature Granulocytes 0.3 10^3/uL (0-0.05); Absolute Lymphocytes 2.5 10^3/uL (1.2-3.4); Absolute Monocytes 0.5 10^3/uL (0.1-0.6); Absolute Neutrophils 3.7 10^3/uL (1.4-6.5); Hematocrit 24.8 % (37.0-47.0); Hemoglobin 8.3 g/dL (12.0-16.0); Mean Corp Hgb Conc. 33.5 g/dL (33.0-37.0); Mean Corpuscular Hgb 29.2 pg (27.0-31.0); Mean Corpuscular Volume 87.3 fL (81.0-99.0); Mean Platelet Volume 9.7 fL (7.4-10.4); Nucleated Red Blood Cells % 0 %; Platelet Count 509 10^3/uL (130-400); Red Blood Cell Count 2.84 10^6/uL (4.20-5.40); Red Cell Dist. Width 15.6 % (11.5-14.5); White Blood Cell Count 7.3 10^3/uL (4.8-10.8)
[2024-08-21 07:05] VITALS: BP 104/72
[2024-08-21 08:11] LABS: ALT (SGPT) 17 U/L (0-35); AST (SGOT) 20 U/L (14-36); Albumin 2.5 g/dl (3.5-5.0); Alkaline Phosphatase 390 U/L (38-126); Blood Urea Nitrogen 7 mg/dl (7-17); Calcium 8.1 mg/dl (8.4-10.2); Carbon Dioxide 26 mmol/L (22-30); Chloride 98 mmol/L (98-107); Estimated Creatinine Clearance 102 ml/min; Glucose 95 mg/dl (70-99); Magnesium 1.7 mg/dl (1.6-2.3); Phosphorus 3.7 mg/dl (2.5-4.5); Potassium 4.2 mmol/L (3.5-5.1); Sodium 135 mmol/L (135-145); Total Bilirubin 0.1 mg/dl (0.2-1.3); Total Protein 5.2 g/dl (6.3-8.2); eGFR > 60.00
--- NOTE | 2024-08-21 08:43 | W.PN.CRS1 ---
Today's Communication / Plan
-
as below
Assessment/Plan
-
54-year-old, homeless, female with PMH of indeterminate colitis (first diagnosed in 2003; received 1 dose of Remicade at that time and then was treated with Asacol for 1 year; she had repeated flares in 2009, 2010 and 2011 for which she received
steroids and was switched to mesalamine derivatives; in 2018, she reports a colonoscopy for which she was told she was in remission and her medications were stopped; she was recently admitted to [facility] in June with a recurrent flare; she
was treated with IV steroids and received a dose of Remicade on 07/14; she was discharged with a steroid taper) who presented to [place] [facility] on 07/26 with persistent abdominal pain and loose stools, averaging 6-10/day, since her discharge from
[facility]. 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 Her CRP was 121, albumin 2.5. She was treated with IV steroids and transitioned to oral. While admitted, her abdominal pain seemed to get worse over the following 3 to [address]
showed worsening colonic distention (transverse at 6 cm, cecum at 8 cm) with gradual tapering toward the sigmoid, concerning for a colonic ileus. A CRP was greater than 270. Her HR increased to 120s and pain was 10/10. CRS was consulted on 08/01.
-She was offered surgery but she wanted to exhaust non-operative measures. She was switched back to IV steroids and improved
-On 08/05, and AXR was done which showed pneumoperitoneum, consistent with perforation; she was taken for emergency surgery
POD 16 total abdominal colectomy with end ileostomy, intraOp consult to [employer] who performed MP/BSO
-POD 4, developed nausea/vomiting, CT showing postoperative changes with ileus; NGT was placed
-POD 10, CTAP - luq collection, no nara pouch leak; IR placement of drain
AFVSS, HR range 90s-100s, BP low normal
WBC 7.3 from 8.7, Hb 8.3 from 8.1, CR 0.4
� Continue low residue
� Continue pain control; recommend transition from Dilaudid [employer] to extended release with PRN options
� Continue DVT PPx with Lovenox
� Off steroids; depending on Crohn's versus UC, will possibly need maintenance medication; appreciate GI
� Continue IV Unasyn; f/u IR drain cultures; appreciate ID
� Appreciate hospitalist
Dispo�start discharge planning, hopefully discharge in next 1 to 2 days; will need follow-up with Dr. Lau and [facility] for ostomy and drain care
Subjective Data
Procedure
08/05/24 Ex lap with total abdominal colectomy with end-ileostomy and MP BSO
Subjective Data
Date of Service: August 21, 2024
No overnight events.
Pain controlled.
Denies nausea/vomiting. Tolerating diet.
+ Ostomy function +voiding
Pt is OOB.
Objective Data
-
Vital Signs
Temp Pulse Resp BP Pulse Ox
98.8 F 99 16 104/72 92
08/21/24 07:05 08/21/24 07:05 08/21/24 07:05 08/21/24 07:05 08/21/24 07:05
Intake & Output
08/20/24 08/21/24 08/22/24
06:59 06:59 06:59
Intake Total 1250 / 1250 2660 / 2660
Output Total 477 / 477 1273 / 1273
Balance 773 / 773 1387 / 1387
Intake:
Oral fluids 820 / 820 1200 / 1200
IV fluids (Total) 960 / 960
IV piggybacks 220 / 220 480 / 480
TPN/PPN 200 / 200
Amount instilled into Drain (
Total)
Left Upper Abdomen Placed in IR
Output:
Liquid stool amount 145 / 145 450 / 450
Ileostomy 145 / 145 450 / 450
Drain Output (Total)
Left Lower Abdomen Kennedy-
Kern
Left Upper Abdomen Placed in IR
Urine, Voided 300 / 300 800 / 800
Other:
Number of approximated MODERATE 2
amounts of urine
Number of approximated LARGE 1 1
amounts of urine
Lab Results
08/21/24 06:24
08/21/24 06:24
Physical Exam
-
General: No Acute Distress and AOx3
HEENT: Grossly Normal
Abdomen: Soft, Non Distended and Tender (Appropriately tender near LUQ drain; ostomy pink with stool; left lower OR drain removed at bedside)
Skin: Warm and Dry
Wound: No Signs of Infection, Dressing in Place, No Skin Erythema and Other (Midline incision with intermittent lisandra, no purulent drainage or surrounding erythema)
[2024-08-21] MEDS: NSS (PRESERVATIVE FREE) 10 ML IV ×2 (08:49→20:27)
[2024-08-21] MEDS: OSCAL 500 + D 500 MG PO (08:49)
[2024-08-21] MEDS: PROTONIX IV 40 MG IV ×2 (08:49→20:27)
[2024-08-21] MEDS: ZOLOFT 75 MG PO (08:49)
--- NOTE | 2024-08-21 10:54 | WOUNDNOTE ---
[facility] RN Note: Patient sitting in recliner chair with air chair cushion. Patient can turn in bed but is interested in an air overlay or air mattress. Will discuss with JOSEFINA Almendarez. Stoma pink and slightly budded. She has peristomal creases and
peristomal yeast rash. Instructed patient how to treat peristomal rash (light dusting of miconazole powder followed by no sting barrier wipe with each wafer change) and appliance change using soft convex Pete wafer # [id number], Flora seal and
Pete pouch # [id number]. t/c SPD and ordered ostomy supplies. Next appliance change due Sunday.
[2024-08-21 11:00] VITALS: BP 102/71
--- NOTE | 2024-08-21 11:00 | WOUNDNOTE ---
[facility] RN note: Updated Dr. Harding re: soft convex wafer used on patient d/t peristomal skin creases noted and miconazole powder ordered for peristomal yeast rash. Dr. Harding agreeable to interventions.
--- NOTE | 2024-08-21 12:00 | W.PN.ID1 ---
Addendum entered and electronically signed by Hetal See MD 08/21/24 12:13:
Correction: One JAXSON drain remains LUQ - with small amt of purulent fluid.
Original Note:
Date of Service
Date of Service: August 21, 2024
Today's Communication
- Continue Unasyn.
-At time of discharge, can transition to Augmentin 875mg po bid through 09/04/24.
Assessment / Plan
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
- s/p subtotal colectomy, end ileostomy, MP, BSO 08/05/24
- OR cx : MSSA, E. coli, Kleb pneumoniae, Strep
# Intra-abdominal abscess
-s/p perc drain 08/15/2024
-Abscess cx: E. faecalis, E. coli, Kleb pneumoniae
Recommendations:
- Continue Unasyn.
-At time of discharge, can transition to Augmentin 875mg po bid through 09/04/24.
Chief Complaint
-: Other (Intrabdominal abscess.)
Subjective / Review of Systems
No complaints. Tolerating diet.
Vital Signs / Physical Exam
Vital Signs
Vital Signs
Temp Pulse Resp BP Pulse Ox
99.0 F 101 16 102/71 94
08/21/24 11:00 08/21/24 11:00 08/21/24 11:00 08/21/24 11:00 08/21/24 11:00
Physical Exam
Constitutional: No Acute Distress and Comfortable
Eyes: Sclera Anicteric
Cardiovascular: Regular Rate and S1/S2
Pulmonary: Clear
Gastrointestinal: Soft, Non Tender, Decreased Bowel Sounds and Other (L upper abd 2 JAXSON drains with serous output)
Extremities: Negative Edema
Neurological: AO x 3
Objective Data
Lab Data
Lab Results
08/21/24 06:24
08/21/24 06:24
ESR 92 mm/hour (0-20) H 07/26/24 06:32
PT 17.4 Sec (11.4-14.6) H 08/15/24 14:04
INR 1.44 08/15/24 14:04
APTT 44.9 Sec (23.4-35.0) H 08/15/24 14:04
Estimated Creat Clear 102 ml/min 08/21/24 06:24
Lactic Acid 1.0 mmol/L (0.7-2.0) 08/11/24 21:02
Total Bilirubin 0.1 mg/dl (0.2-1.3) L 08/21/24 06:24
GGT 897 U/L (12-43) H 07/27/24 08:01
AST 20 U/L (14-36) 08/21/24 06:24
ALT 17 U/L (0-35) 08/21/24 06:24
Alkaline Phosphatase 390 U/L (38-126) H 08/21/24 06:24
C-Reactive Protein 226.90 mg/L (0.0-10.00) H 08/07/24 06:09
Most recent labs reviewed.
Micro Results:
08/15/24 16:25 Wound Culture - Final
Abdomen Enterococcus faecalis
Escherichia coli
Klebsiella pneumoniae
Gram Stain - Final
08/12/24 10:30 Blood Culture - Final
Blood/Venous No Growth - Final Report
08/12/24 10:01 Blood Culture - Final
Blood/Venous No Growth - Final Report
08/05/24 14:00 Wound Culture - Final
Abdomen Escherichia coli
Klebsiella pneumoniae
S aureus-Methicillin Sensitive
Streptococcus species
Gram Stain - Final
08/05/24 14:00 Anaerobic Culture - Final
Abdomen
07/26/24 15:09 Salmonella/Shigella Culture - Final
Feces/Stool No Salmonella, Shigella, Aeromonas or Plesiomonas species
isolated.
Campylobacter Culture - Final
No Campylobacter species isolated.
- Final
NO YERSINIA SPECIES ISOLATED
Shiga Toxin Test - Final
No E. coli Shiga Toxin 1 or 2 detected.
Stool Leukocytes - Final
07/26/24 15:09 Cryptosporidium/Giardia - Final
Feces/Stool Negative for Cryptosporidium and/or Giardia Lamblia
antigens.
C. difficile GDH Antigen & Toxins - Final
Negative for toxigenic C.difficile
07/26/24 CT a/p: Diffuse colonic and rectal wall thickening with some stranding in the adjacent fat consistent with diffuse colitis and likely secondary to known ulcerative colitis.10.8 x 8.4 cm peripherally calcified lesion within the uterus,
likely large, partially calcified fibroid.
08/04/24 AXR: There is new bowel wall thickening with some thumbprinting in the mid descending colon such as may be seen with inflammatory bowel disease or ischemia.
The bowel gas pattern is otherwise not significantly changed with differential diagnosis including ileus and [place]'s syndrome
08/09/24 CT a/p: Interval postoperative changes as described. Probable diffuse postoperative ileus and pneumoperitoneum. No darrell transition point/obstruction. Fluid distention of the distal esophagus, new from prior and likely reflects
gastroesophageal reflux.
08/15/24 CT a/p: Portable small intra-abdominal collections as above. Largest in the left upper quadrant contains gas and fluid and measures up to 4.7 cm in diameter, suspicious for abscess. Another small triangular collection via the ostomy site
measures up to 3.9 cm in diameter and may represent small abscess.
--- NOTE | 2024-08-21 14:09 | W.PN.HOSP.TC ---
Addendum entered and electronically signed by Sandor Mansfield MD 08/21/24 14:20:
I spoke to on-call straw hat plunger operator, and he mentioned that straw hat plunger operator Dr. Vasquez saw this patient before and recommended follow-up with her primary Tank Processor-patient needs to follow up with outpt GI Dr Roche to discuss resuming
biologics to prevent post-op recurrence. On-call straw hat plunger operator mentioned that gastroenterology would not do anything else differently while patient is here.
Original Note:
Today's Communication/Plan
-
Appreciate clinical pharmacists' and nurses help in weaning patient off ROAD [employer]ACHINE [employer]NER pump
Continue Low Residue Diet
Continue antibiotics
Assessment / Plan
Assessment / Plan
Physical Exam
Gen-AAOx3, NAD
HEENT-NC, AT, anicteric, clear oral mm, no evidence of oral thrush
Neck-supple
CV-reg, no M, +S1/S2
Lungs-clear B/L
Abd-soft, NT, ND, ostomy intact, abdominal dressing with drain
Ext-no edema
Musculoskeletal-no cyanosis
Skin-warm and dry
Neuro-grossly non-focal
Psych-calm, cooperative
Assessment/Plan
Sepsis -due to intra-abdominal abscess. CT confirmed small intra-abdominal collections. Largest is left upper quadrant measuring up to 4.7 cm in diameter. Another small collection at the ostomy site measures up to 3.9 cm in diameter. Drain
placed by IR on 08/15. OR cultures noted (MSSA, E. coli, Kleb pneumoniae, Strep) and abscess cultures (E. faecalis, E. coli, Kleb pneumoniae). ID consulted, appreciate their evaluation and recommendations: narrow Zosyn to Unasyn, with plan for
Augmentin 875mg PO bid through 09/04/24.
Left ear pain -looks normal on exam. ENT input noted. Warm compresses. Pain possibly related to NG tube. Improves with Tylenol.
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 Given dose of Remicade in [facility] late June, discharged with prescription for mesalamine that she did not fill, and Steroid taper.
Abdominal pain has significantly improved. She does look comfortable. Dilaudid [employer] as per colorectal surgery -- discussing with clinical pharmacist regarding tapering regimen for pain pump. IV Tylenol [id number]. Continue Low Residue Diet --
per colorectal surgery. TPN previously given, now stopped. Re-consulted GI regarding IBD maintenance medications/prophylaxis.
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 Currently diet advanced to Low Residue, getting TPN for postoperative ileus. JAXSON drain. Continue analgesics, RO[employer]NER. Currently on IV antibiotics. Abdominal fluid
culture from the OR 08/05 shows polymicrobial growth, culture reviewed. Ileostomy with output.
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
Post-Surgical Hypotension -blood pressure now improved overall.
-Still with some soft blood pressure readings.
-Possibly from operative blood loss anemia
-Tranexamic acid 1 g on 08/07/24
-Wean off narcotic pain medications as much as possible
Hyponatremia -present on admission. Continue monitor. 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
Acute normocytic anemia at least partly due to GI blood loss. Hemoglobin improved. Status post multiple blood transfusions.
Large degenerating fibroid - status post MP BSO intraoperatively on 08/05/24
-Follow-up with urogynecology outpatient (colorectal surgery discussed this with Dr. Dickson of outpatient urogynecology)
Depression
-Zoloft increased by psychiatry
-Appreciate psychiatry
Full code
Dispo -anticipate SNF on discharge.
DVT Prophylaxis: SCDs and Lovenox.
Anticipated Discharge: > 48 hours
Subjective/Interval History
-
Date of Service: August 21, 2024
Patient was seen and examined. She reported no pain and denied any other complaints.
Objective Data
-
Labs:
Laboratory Results
08/21/24
06:24
WBC 7.3
Hgb 8.3 L
Hct 24.8 L
Plt Count 509 H
Sodium 135
Potassium 4.2
Chloride 98
Carbon Dioxide 26
BUN 7
Creatinine 0.4 L
Glucose 95
Calcium 8.1 L
Total Bilirubin 0.1 L
AST 20
ALT 17
Alkaline Phosphatase 390 H
Vital Signs:
Vital Signs
Temp Pulse Resp BP Pulse Ox
99.0 F 101 16 102/71 94
08/21/24 11:00 08/21/24 11:00 08/21/24 11:00 08/21/24 11:00 08/21/24 11:00
I&O
08/20/24 08/21/24 08/22/24
06:59 06:59 06:59
Intake Total 1250 / 1250 2660 / 2660
Output Total 477 / 477 1273 / 1273
Balance 773 / 773 1387 / 1387
--- NOTE | 2024-08-21 14:32 | CM ---
Patient seen at bedside.
cont w/RAW SAMPLER
Referrals in [facility]port.
Will require insurance auth for SNF
PLAN: [facility]F, pending bed availability, will require ins auth
[2024-08-21] MEDS: TYLENOL 500 MG PO ×2 (15:01→23:12)
[2024-08-21 15:05] VITALS: BP 100/66
[2024-08-21] MEDS: ROXICODONE 15 MG PO ×2 (17:23→23:12)
[2024-08-21] MEDS: LOVENOX 40 MG SC (17:23)
[2024-08-21 19:08] VITALS: BP 106/68
[2024-08-21] MEDS: DILAUDID 0.25 MG IV (20:35)
[2024-08-21 23:09] VITALS: BP 108/76
[2024-08-22] VITALS (7 sets, daily range): BP systolic 93–111; BP diastolic 62–82; BMI 21.6
[2024-08-22] MEDS: TYLENOL 500 MG PO ×2 (06:12→14:34)
[2024-08-22] MEDS: ROXICODONE 15 MG PO (06:12)
[2024-08-22] MEDS: UNASYN IV ×4 (06:12→23:48)
[2024-08-22 06:13] LABS: % Basophils 0.6 % (0-2); % Immature Granulocytes 3.7 % (0-0.5); % Lymphocytes 41.7 % (20.5-51.1); % Monocytes 5.8 % (1.7-9.3); % Neutrophils 46.2 % (42.2-75.2); Absolute Eosinophils 0.1 10^3/uL (0-0.7); Absolute Immature Granulocytes 0.2 10^3/uL (0-0.05); Absolute Lymphocytes 2.7 10^3/uL (1.2-3.4); Absolute Monocytes 0.4 10^3/uL (0.1-0.6); Hematocrit 26.5 % (37.0-47.0); Hemoglobin 8.6 g/dL (12.0-16.0); Mean Corp Hgb Conc. 32.5 g/dL (33.0-37.0); Mean Corpuscular Hgb 28.7 pg (27.0-31.0); Mean Corpuscular Volume 88.3 fL (81.0-99.0); Mean Platelet Volume 9.6 fL (7.4-10.4); Nucleated Red Blood Cells % 0 %; Platelet Count 609 10^3/uL (130-400); Red Cell Dist. Width 15.8 % (11.5-14.5); White Blood Cell Count 6.4 10^3/uL (4.8-10.8)
[2024-08-22 06:31] LABS: ALT (SGPT) 17 U/L (0-35); AST (SGOT) 22 U/L (14-36); Albumin 2.5 g/dl (3.5-5.0); Alkaline Phosphatase 349 U/L (38-126); Blood Urea Nitrogen 8 mg/dl (7-17); Calcium 8.4 mg/dl (8.4-10.2); Carbon Dioxide 28 mmol/L (22-30); Chloride 100 mmol/L (98-107); Estimated Creatinine Clearance 104 ml/min; Glucose 94 mg/dl (70-99); Magnesium 1.7 mg/dl (1.6-2.3); Phosphorus 4.2 mg/dl (2.5-4.5); Potassium 4.4 mmol/L (3.5-5.1); Sodium 137 mmol/L (135-145); Total Bilirubin 0.1 mg/dl (0.2-1.3); Total Protein 5.3 g/dl (6.3-8.2); eGFR > 60.00
[2024-08-22] MEDS: NSS (PRESERVATIVE FREE) 10 ML IV ×2 (09:00→20:19)
[2024-08-22] MEDS: PROTONIX IV 40 MG IV ×2 (09:00→20:19)
[2024-08-22] MEDS: OSCAL 500 + D 500 MG PO (09:01)
[2024-08-22] MEDS: ZOLOFT 75 MG PO (09:01)
[2024-08-22] MEDS: DILAUDID 0.25 MG IV (11:02)
--- NOTE | 2024-08-22 11:57 | W.PN.CRS1 ---
Today's Communication / Plan
-
IR for tube check
dispo per primary team
Assessment/Plan
-
54-year-old, homeless, female with PMH of indeterminate colitis (first diagnosed in 2003; received 1 dose of Remicade at that time and then was treated with Asacol for 1 year; she had repeated flares in 2009, 2010 and 2011 for which she received
steroids and was switched to mesalamine derivatives; in 2018, she reports a colonoscopy for which she was told she was in remission and her medications were stopped; she was recently admitted to [facility] in June with a recurrent flare; she
was treated with IV steroids and received a dose of Remicade on 07/14; she was discharged with a steroid taper) who presented to [facility] on 07/26 with persistent abdominal pain and loose stools, averaging 6-10/day, since her discharge from
[facility]. 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 Her CRP was 121, albumin 2.5. She was treated with IV steroids and transitioned to oral. While admitted, her abdominal pain seemed to get worse over the following 3 to [address]
showed worsening colonic distention (transverse at 6 cm, cecum at 8 cm) with gradual tapering toward the sigmoid, concerning for a colonic ileus. A CRP was greater than 270. Her HR increased to 120s and pain was 10/10. CRS was consulted on 08/01.
-She was offered surgery but she wanted to exhaust non-operative measures. She was switched back to IV steroids and improved
-On 08/05, and AXR was done which showed pneumoperitoneum, consistent with perforation; she was taken for emergency surgery
POD 17 total abdominal colectomy with end ileostomy, intraOp consult to CEMENT BREAKER who performed MP/BSO
-POD 5, developed nausea/vomiting, CT showing postoperative changes with ileus; NGT was placed
-POD 11, CTAP - luq collection, no nara pouch leak; IR placement of drain
AFVSS, HR range 90s-100s, BP low normal
WBC 6.4, Hb 8.3 from 8.3 (8.1)
� Continue low residue
� Continue pain control
� Continue DVT PPx with Lovenox
� Off steroids; depending on Crohn's versus UC, will possibly need maintenance medication - will need to follow up with GI doctor as an outpatient
� Continue IV Unasyn; f/u IR drain cultures; appreciate ID
� Appreciate hospitalist
- Dispo�start discharge planning, hopefully discharge in next 1 to 2 days; will need follow-up with Dr. Lau and [facility] for ostomy and drain care
- IR consulted today for IR drain check prior to discharge
Subjective Data
Procedure
08/05/24 Ex lap with total abdominal colectomy with end-ileostomy and MP BSO
Subjective Data
Date of Service: August 22, 2024
Patient states she still has some pain but is improved. She is tolerating diet. She has no nausea or vomiting.
Objective Data
-
Vital Signs
Temp Pulse Resp BP Pulse Ox
99.1 F 99 16 97/63 93
08/22/24 08:00 08/22/24 08:00 08/22/24 08:00 08/22/24 08:00 08/22/24 09:48
Intake & Output
08/21/24 08/22/24 08/23/24
06:59 06:59 06:59
Intake Total 2660 / 2660 730 / 730
Output Total 1273 / 1273 182 / 182
Balance 1387 / 1387 548 / 548
Intake:
Oral fluids 1200 / 1200 720 / 720
IV fluids (Total) 960 / 960
IV piggybacks 480 / 480
Amount instilled into Drain (
Total)
Left Upper Abdomen Placed in IR
Output:
Liquid stool amount 450 / 450 175 / 175
Ileostomy 450 / 450 175 / 175
Drain Output (Total)
Left Lower Abdomen Kennedy-
Kern
Left Upper Abdomen Placed in IR
Urine, Voided 800 / 800
Other:
Number of approximated MODERATE 2 1
amounts of urine
Number of approximated LARGE 1 2
amounts of urine
How many times incontinent 1
SATURATED amount urine
Lab Results
08/22/24 05:37
08/22/24 05:37
Physical Exam
-
General: No Acute Distress and AOx3
Abdomen: Soft, Non Distended, Tender (very mild midline incision) and Other (IR drain - serous)
Skin: Warm and Dry
Incision: Clear, Dry, Intact
--- NOTE | 2024-08-22 13:38 | CM ---
Spoke with Danielle casillas at [facility], no bed available until Sunday
Updated referral in [facility]
CM will need to obtain insurance authorization from [facility] prior to SNF
PLAN: [facility] SNF, pending bed availability, will need ins auth
--- NOTE | 2024-08-22 13:40 | W.PN.ID1 ---
Date of Service
Date of Service: August 22, 2024
Today's Communication
Continue antibiotics.
Assessment / Plan
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
- s/p subtotal colectomy, end ileostomy, MP, BSO 08/05/24
- OR cx : MSSA, E. coli, Kleb pneumoniae, Strep
# Intra-abdominal abscess
-s/p perc drain 08/15/2024
-Abscess cx: E. faecalis, E. coli, Kleb pneumoniae
Recommendations:
- Continue Unasyn.
-At time of discharge, can transition to Augmentin 875mg po bid, to continue through 09/04/24.
Chief Complaint
-: Other (Intrabdominal abscess.)
Subjective / Review of Systems
Review of Systems: No Fever, No Chills and Abdominal Pain (mild)
Vital Signs / Physical Exam
Vital Signs
Vital Signs
Temp Pulse Resp BP Pulse Ox
98.7 F 96 16 105/77 97
08/22/24 11:40 08/22/24 13:27 08/22/24 13:27 08/22/24 13:27 08/22/24 13:27
Physical Exam
Constitutional: No Acute Distress and Comfortable
Eyes: Sclera Anicteric
Cardiovascular: Regular Rate and S1/S2
Pulmonary: Clear
Gastrointestinal: Soft, Non Tender, Normal Bowel Sounds and Other (JAXSON drain with minimal output at present.)
Extremities: Negative Edema
Neurological: AO x 3
Objective Data
Lab Data
Lab Results
08/22/24 05:37
08/22/24 05:37
ESR 92 mm/hour (0-20) H 07/26/24 06:32
PT 17.4 Sec (11.4-14.6) H 08/15/24 14:04
INR 1.44 08/15/24 14:04
APTT 44.9 Sec (23.4-35.0) H 08/15/24 14:04
Estimated Creat Clear 104 ml/min 08/22/24 05:37
Lactic Acid 1.0 mmol/L (0.7-2.0) 08/11/24 21:02
Total Bilirubin 0.1 mg/dl (0.2-1.3) L 08/22/24 05:37
GGT 897 U/L (12-43) H 07/27/24 08:01
AST 22 U/L (14-36) 08/22/24 05:37
ALT 17 U/L (0-35) 08/22/24 05:37
Alkaline Phosphatase 349 U/L (38-126) H 08/22/24 05:37
C-Reactive Protein 226.90 mg/L (0.0-10.00) H 08/07/24 06:09
Most recent labs reviewed.
Micro Results:
08/15/24 16:25 Wound Culture - Final
Abdomen Enterococcus faecalis
Escherichia coli
Klebsiella pneumoniae
Gram Stain - Final
08/12/24 10:30 Blood Culture - Final
Blood/Venous No Growth - Final Report
08/12/24 10:01 Blood Culture - Final
Blood/Venous No Growth - Final Report
08/05/24 14:00 Wound Culture - Final
Abdomen Escherichia coli
Klebsiella pneumoniae
S aureus-Methicillin Sensitive
Streptococcus species
Gram Stain - Final
08/05/24 14:00 Anaerobic Culture - Final
Abdomen
07/26/24 15:09 Salmonella/Shigella Culture - Final
Feces/Stool No Salmonella, Shigella, Aeromonas or Plesiomonas species
isolated.
Campylobacter Culture - Final
No Campylobacter species isolated.
- Final
NO YERSINIA SPECIES ISOLATED
Shiga Toxin Test - Final
No E. coli Shiga Toxin 1 or 2 detected.
Stool Leukocytes - Final
07/26/24 15:09 Cryptosporidium/Giardia - Final
Feces/Stool Negative for Cryptosporidium and/or Giardia Lamblia
antigens.
C. difficile GDH Antigen & Toxins - Final
Negative for toxigenic C.difficile
07/26/24 CT a/p: Diffuse colonic and rectal wall thickening with some stranding in the adjacent fat consistent with diffuse colitis and likely secondary to known ulcerative colitis.10.8 x 8.4 cm peripherally calcified lesion within the uterus,
likely large, partially calcified fibroid.
08/04/24 AXR: There is new bowel wall thickening with some thumbprinting in the mid descending colon such as may be seen with inflammatory bowel disease or ischemia.
The bowel gas pattern is otherwise not significantly changed with differential diagnosis including ileus and [place]'s syndrome
08/09/24 CT a/p: Interval postoperative changes as described. Probable diffuse postoperative ileus and pneumoperitoneum. No darrell transition point/obstruction. Fluid distention of the distal esophagus, new from prior and likely reflects
gastroesophageal reflux.
08/15/24 CT a/p: Portable small intra-abdominal collections as above. Largest in the left upper quadrant contains gas and fluid and measures up to 4.7 cm in diameter, suspicious for abscess. Another small triangular collection via the ostomy site
measures up to 3.9 cm in diameter and may represent small abscess.
[2024-08-22] MEDS: ROXICODONE PO ×2 (13:43→23:54)
--- NOTE | 2024-08-22 13:45 | PTCARENOTE ---
Patient with pink/red rash throughout abdomen and L arm this AM; colorectal surgery team at bedside, rash assessed. Desenex powder applied to affected areas per colorectal surgery team. Patient states she feels itching started to area 2 days ago but
never noticed any redness/rash until this AM. Patient to IR for drain check, and colorectal team updated on rash, no new orders at this time.
--- NOTE | 2024-08-22 14:14 | W.PN.HOSP.TC ---
Today's Communication/Plan
-
Continue antibiotics
Wean pain meds as tolerated
No bed until 08/25/24, as per case management
Assessment / Plan
Assessment / Plan
Physical Exam
Gen-AAOx3, NAD
HEENT-NC, AT, anicteric, clear oral mm, no evidence of oral thrush
Neck-supple
CV-reg, no M, +S1/S2
Lungs-clear B/L
Abd-soft, NT, ND, ostomy intact, abdominal dressing with drain
Ext-no edema
Musculoskeletal-no cyanosis
Skin-warm and dry
Neuro-grossly non-focal
Psych-calm, cooperative
Assessment/Plan
Sepsis -due to intra-abdominal abscess. CT confirmed small intra-abdominal collections. Largest is left upper quadrant measuring up to 4.7 cm in diameter. Another small collection at the ostomy site measures up to 3.9 cm in diameter. Drain
placed by IR on 08/15. OR cultures noted (MSSA, E. coli, Kleb pneumoniae, Strep) and abscess cultures (E. faecalis, E. coli, Kleb pneumoniae). ID consulted, appreciate their evaluation and recommendations: narrow Zosyn to Unasyn, with plan for
Augmentin 875mg PO bid through 09/04/24.
Hives rash from abdomen to chest to left neck/shoulder left arm -- discussed with ID, no concern for drug rash. Change bedsheets, Benadryl as needed
Left ear pain -looks normal on exam. ENT input noted. Warm compresses. Pain possibly related to NG tube. Improves with Tylenol.
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 Given dose of Remicade in [facility] late June, discharged with prescription for mesalamine that she did not fill, and Steroid taper.
Abdominal pain has significantly improved. She does look comfortable. Dilaudid FRENCH PASTRY COOK weaned off and transitioned to oral medications -- discussing with clinical pharmacist regarding tapering regimen for pain pump. IV Tylenol [id number].
Continue Low Residue Diet -- per colorectal surgery. TPN previously given, was previously stopped. Re-consulted GI regarding IBD maintenance medications/prophylaxis -- but patient has an outside vacuum kettle cook who she should follow-up with after
discharge for consideration of IBD medication prophylaxis.
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 Currently diet advanced to Low Residue, getting TPN for postoperative ileus. JAXSON drain. Continue analgesics, FRENCH PASTRY COOK. Currently on IV antibiotics. Abdominal fluid
culture from the OR 08/05 shows polymicrobial growth, culture reviewed. Ileostomy with output.
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 Mandel of medical oncology regarding her carcinoid.
Post-Surgical Hypotension -blood pressure now improved overall.
-Still with some soft blood pressure readings.
-Possibly from operative blood loss anemia
-Tranexamic acid 1 g on 08/07/24
-Wean off narcotic pain medications as much as possible
Hyponatremia -present on admission. Continue monitor. 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
Acute normocytic anemia at least partly due to GI blood loss. Hemoglobin improved. Status post multiple blood transfusions.
Large degenerating fibroid - status post MP BSO intraoperatively on 08/05/24
-Follow-up with urogynecology outpatient (colorectal surgery discussed this with Dr. Dickson of outpatient urogynecology)
Depression
-Zoloft increased by psychiatry
-Appreciate psychiatry
Full code
Dispo -anticipate SNF on discharge.
DVT Prophylaxis: SCDs and Lovenox.
Anticipated Discharge: > 48 hours
Subjective/Interval History
-
Date of Service: August 22, 2024
Patient was seen and examined. She reported pain is under control, no other significant complaints.
Objective Data
-
Labs:
Laboratory Results
08/22/24
05:37
WBC 6.4
Hgb 8.6 L
Hct 26.5 L
Plt Count 609 H
Sodium 137
Potassium 4.4
Chloride 100
Carbon Dioxide 28
BUN 8
Creatinine 0.5 L
Glucose 94
Calcium 8.4
Total Bilirubin 0.1 L
AST 22
ALT 17
Alkaline Phosphatase 349 H
Vital Signs:
Vital Signs
Temp Pulse Resp BP Pulse Ox
98.7 F 96 16 105/77 97
08/22/24 11:40 08/22/24 13:27 08/22/24 13:27 08/22/24 13:27 08/22/24 13:27
I&O
08/21/24 08/22/24 08/23/24
06:59 06:59 06:59
Intake Total 2660 / 2660 730 / 730
Output Total 1273 / 1273 182 / 182
Balance 1387 / 1387 548 / 548
[2024-08-22] MEDS: ROXICODONE 10 MG PO ×2 (14:33→17:15)
[2024-08-22] MEDS: LOVENOX 40 MG SC (17:15)
[2024-08-22] MEDS: XANAX 0.25 MG PO (20:28)
[2024-08-22] MEDS: TYLENOL PO (23:54)
[2024-08-23 05:04] VITALS: BMI 21.1
[2024-08-23] MEDS: UNASYN IV ×4 (05:35→23:12)
[2024-08-23] MEDS: TYLENOL 500 MG PO (05:54)
[2024-08-23] MEDS: ROXICODONE 10 MG PO ×2 (05:54→11:08)
[2024-08-23 07:55] VITALS: BP 95/69
[2024-08-23 08:28] LABS: % Basophils 0.5 % (0-2); % Eosinophils 1.7 % (0-6); % Immature Granulocytes 2.9 % (0-0.5); % Lymphocytes 29.2 % (20.5-51.1); % Monocytes 4.5 % (1.7-9.3); % Neutrophils 61.2 % (42.2-75.2); Absolute Eosinophils 0.1 10^3/uL (0-0.7); Absolute Immature Granulocytes 0.2 10^3/uL (0-0.05); Absolute Lymphocytes 1.9 10^3/uL (1.2-3.4); Absolute Monocytes 0.3 10^3/uL (0.1-0.6); Hematocrit 27.7 % (37.0-47.0); Hemoglobin 8.9 g/dL (12.0-16.0); Mean Corp Hgb Conc. 32.1 g/dL (33.0-37.0); Mean Corpuscular Hgb 28.5 pg (27.0-31.0); Mean Corpuscular Volume 88.8 fL (81.0-99.0); Mean Platelet Volume 9.2 fL (7.4-10.4); Nucleated Red Blood Cells % 0 %; Platelet Count 748 10^3/uL (130-400); Red Blood Cell Count 3.12 10^6/uL (4.20-5.40); Red Cell Dist. Width 16.1 % (11.5-14.5); White Blood Cell Count 6.6 10^3/uL (4.8-10.8)
[2024-08-23 08:31] LABS: ALT (SGPT) 15 U/L (0-35); AST (SGOT) 15 U/L (14-36); Albumin 2.6 g/dl (3.5-5.0); Alkaline Phosphatase 306 U/L (38-126); Blood Urea Nitrogen 9 mg/dl (7-17); Calcium 8.4 mg/dl (8.4-10.2); Carbon Dioxide 24 mmol/L (22-30); Chloride 104 mmol/L (98-107); Estimated Creatinine Clearance 103 ml/min; Glucose 113 mg/dl (70-99); Magnesium 1.6 mg/dl (1.6-2.3); Phosphorus 3.6 mg/dl (2.5-4.5); Sodium 140 mmol/L (135-145); Total Bilirubin 0.1 mg/dl (0.2-1.3); Total Protein 5.6 g/dl (6.3-8.2); eGFR > 60.00
[2024-08-23] MEDS: NSS (PRESERVATIVE FREE) 10 ML IV ×2 (08:58→20:25)
[2024-08-23] MEDS: ZOLOFT 75 MG PO (08:58)
[2024-08-23] MEDS: OSCAL 500 + D 500 MG PO (08:58)
[2024-08-23] MEDS: PROTONIX IV 40 MG IV ×2 (08:58→20:25)
[2024-08-23 12:03] VITALS: BP 99/65
--- NOTE | 2024-08-23 12:36 | W.PN.HOSP.TC ---
Today's Communication/Plan
-
Waiting for placement, which is expected to be on SundayAugust 25, as per case management
Increase Tylenol and Oxy for better pain control
Assessment / Plan
Assessment / Plan
Physical Exam
Gen-AAOx3, NAD
HEENT-NC, AT
Neck-supple
CV-reg, no M, +S1/S2
Lungs-clear B/L
Abd-soft, NT, ND, ostomy intact, abdominal dressing with drain
Ext-no edema
Musculoskeletal-no cyanosis
Skin-warm and dry
Neuro-grossly non-focal
Psych-calm, cooperative
Assessment/Plan
Sepsis -due to intra-abdominal abscess. CT confirmed small intra-abdominal collections. Largest is left upper quadrant measuring up to 4.7 cm in diameter. Another small collection at the ostomy site measures up to 3.9 cm in diameter. Drain
placed by IR on 08/15. OR cultures noted (MSSA, E. coli, Kleb pneumoniae, Strep) and abscess cultures (E. faecalis, E. coli, Kleb pneumoniae). ID consulted, appreciate their evaluation and recommendations: narrow Zosyn to Unasyn, with plan for
Augmentin 875mg PO bid through 09/04/24.
Hives rash from abdomen to chest to left neck/shoulder left arm -- IMPROVING OF 08/23/24 -- discussed with ID, no concern for drug rash. Change bedsheets, Benadryl as needed
Left ear pain -looks normal on exam. ENT input noted. Warm compresses. Pain possibly related to NG tube. Improves with Tylenol.
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 Given dose of Remicade in [facility] late June, discharged with prescription for mesalamine that she did not fill, and Steroid taper.
Abdominal pain has significantly improved. She does look comfortable. Dilaudid GATE GUARD weaned off and transitioned to oral medications -- discussing with clinical pharmacist regarding pain medications. Continue PO Tylenol and Oxycodone around the
clock. Continue Low Residue Diet -- per colorectal surgery. TPN previously given, was previously stopped. Re-consulted GI regarding IBD maintenance medications/prophylaxis -- but patient has an outside portable pinch riveter who she should follow-up
with after discharge for consideration of IBD medication prophylaxis, as per GI.
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 Currently diet advanced to Low Residue. JAXSON drain as per colorectal surgery. Continue analgesics, GATE GUARD. Currently on IV antibiotics. Abdominal fluid culture from the
OR 08/05 shows polymicrobial growth, culture reviewed. Ileostomy with output.
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 Mandel of medical oncology regarding her carcinoid.
Post-Surgical Hypotension -blood pressure now improved overall.
-Still with some soft blood pressure readings.
-Possibly from operative blood loss anemia
-Tranexamic acid 1 g on 08/07/24
-Wean off narcotic pain medications as much as possible
Hyponatremia - present on admission. Continue monitor. 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
Acute normocytic anemia at least partly due to GI blood loss. Hemoglobin improved. Status post multiple blood transfusions.
Large degenerating fibroid - status post MP BSO intraoperatively on 08/05/24
-Follow-up with urogynecology outpatient (colorectal surgery discussed this with Dr. Dickson of outpatient urogynecology)
Depression
-Zoloft increased by psychiatry
-Appreciate psychiatry
Full code
Dispo -anticipate SNF on discharge.
DVT Prophylaxis: SCDs and Lovenox.
Anticipated Discharge: > 48 hours
Subjective/Interval History
-
Date of Service: August 23, 2024
Patient was seen and examined. She denied any new significant complaints, pain is still there 05/24 at times, she was wondering if we can increase her Tylenol and Oxycodone.
Objective Data
-
Labs:
Laboratory Results
08/23/24
07:44
WBC 6.6
Hgb 8.9 L
Hct 27.7 L
Plt Count 748 H D
Sodium 140
Potassium 4.0
Chloride 104
Carbon Dioxide 24
BUN 9
Creatinine 0.5 L
Glucose 113 H
Calcium 8.4
Total Bilirubin 0.1 L
AST 15
ALT 15
Alkaline Phosphatase 306 H
Vital Signs:
Vital Signs
Temp Pulse Resp BP Pulse Ox
98.5 F 69 16 95/69 95
08/23/24 07:55 08/23/24 07:55 08/23/24 07:55 08/23/24 07:55 08/23/24 09:25
I&O
08/22/24 08/23/24 08/24/24
06:59 06:59 06:59
Intake Total 730 / 730 1090 / 1090
Output Total 182 / 182 455 / 455
Balance 548 / 548 635 / 635
[2024-08-23] MEDS: TYLENOL PO (14:40)
[2024-08-23] MEDS: XANAX 0.25 MG PO (15:30)
[2024-08-23 16:00] VITALS: BP 124/80
[2024-08-23] MEDS: LOVENOX 40 MG SC (17:02)
[2024-08-23] MEDS: ROXICODONE 15 MG PO ×2 (17:02→23:11)
[2024-08-23 19:00] VITALS: BP 113/74
[2024-08-23] MEDS: LIDOCAINE 4% PATCH 1 PATCH TOPICAL (20:25)
[2024-08-23] MEDS: TYLENOL 1000 MG PO (20:26)
[2024-08-23 23:00] VITALS: BP 101/68
[2024-08-24] VITALS (7 sets, daily range): BP systolic 103–123; BP diastolic 70–81; PULSE 100; BMI 21.8
[2024-08-24] MEDS: TYLENOL 1000 MG PO ×3 (05:23→20:32)
[2024-08-24] MEDS: ROXICODONE 15 MG PO ×4 (05:23→23:34)
[2024-08-24] MEDS: UNASYN IV ×4 (05:24→23:34)
[2024-08-24 05:39] LABS: ALT (SGPT) 15 U/L (0-35); AST (SGOT) 17 U/L (14-36); Albumin 2.5 g/dl (3.5-5.0); Alkaline Phosphatase 264 U/L (38-126); Blood Urea Nitrogen 10 mg/dl (7-17); Calcium 8.5 mg/dl (8.4-10.2); Carbon Dioxide 25 mmol/L (22-30); Chloride 105 mmol/L (98-107); Estimated Creatinine Clearance 103 ml/min; Glucose 91 mg/dl (70-99); Sodium 140 mmol/L (135-145); Total Bilirubin < 0.1 mg/dl (0.2-1.3); Total Protein 5.2 g/dl (6.3-8.2); eGFR > 60.00
[2024-08-24 05:42] LABS: % Basophils 0.6 % (0-2); % Eosinophils 3.8 % (0-6); % Immature Granulocytes 3.8 % (0-0.5); % Lymphocytes 42.2 % (20.5-51.1); % Monocytes 7.9 % (1.7-9.3); % Neutrophils 41.7 % (42.2-75.2); Absolute Eosinophils 0.2 10^3/uL (0-0.7); Absolute Immature Granulocytes 0.2 10^3/uL (0-0.05); Absolute Lymphocytes 2.7 10^3/uL (1.2-3.4); Absolute Monocytes 0.5 10^3/uL (0.1-0.6); Absolute Neutrophils 2.7 10^3/uL (1.4-6.5); Hematocrit 27.7 % (37.0-47.0); Hemoglobin 8.8 g/dL (12.0-16.0); Mean Corp Hgb Conc. 31.8 g/dL (33.0-37.0); Mean Corpuscular Hgb 28.9 pg (27.0-31.0); Mean Corpuscular Volume 90.8 fL (81.0-99.0); Mean Platelet Volume 9.1 fL (7.4-10.4); Nucleated Red Blood Cells % 0 %; Platelet Count 741 10^3/uL (130-400); Red Blood Cell Count 3.05 10^6/uL (4.20-5.40); Red Cell Dist. Width 16.3 % (11.5-14.5); White Blood Cell Count 6.4 10^3/uL (4.8-10.8)
[2024-08-24] MEDS: OSCAL 500 + D 500 MG PO (08:14)
[2024-08-24] MEDS: NSS (PRESERVATIVE FREE) 10 ML IV ×2 (08:14→20:31)
[2024-08-24] MEDS: PROTONIX IV 40 MG IV ×2 (08:14→20:31)
[2024-08-24] MEDS: ZOLOFT 75 MG PO (08:14)
--- NOTE | 2024-08-24 09:52 | W.PN.HOSP.TC ---
Today's Communication/Plan
-
Per case management, earliest bed availability tomorrow
Continue antibiotics, diet and pain medications
Assessment / Plan
Assessment / Plan
Physical Exam
Gen-AAOx3, NAD
HEENT-NC, AT
Neck-supple
CV-reg, no M, +S1/S2
Lungs-clear B/L
Abd-soft, NT, ND, ostomy intact, abdominal dressing with drain
Ext-no edema
Musculoskeletal-no cyanosis
Skin-warm and dry
Neuro-grossly non-focal
Psych-calm, cooperative
Assessment/Plan
Sepsis -due to intra-abdominal abscess. CT confirmed small intra-abdominal collections. Largest is left upper quadrant measuring up to 4.7 cm in diameter. Another small collection at the ostomy site measures up to 3.9 cm in diameter. Drain
placed by IR on 08/15. OR cultures noted (MSSA, E. coli, Kleb pneumoniae, Strep) and abscess cultures (E. faecalis, E. coli, Kleb pneumoniae). ID consulted, appreciate their evaluation and recommendations: narrow Zosyn to Unasyn, with plan for
Augmentin 875mg PO bid through 09/04/24.
Hives rash from abdomen to chest to left neck/shoulder left arm -- IMPROVED OF 08/23/24 and 08/24/24 -- discussed with ID, no concern for drug rash. Change bedsheets, Benadryl as needed
Left ear pain - RESOLVED - looks normal on exam. ENT input noted. Warm compresses. Pain possibly related to NG tube. Improves with Tylenol.
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 Given dose of Remicade in [facility] late June, discharged with prescription for mesalamine that she did not fill, and Steroid taper.
Abdominal pain has significantly improved. She does look comfortable. Dilaudid TELECOMMUNICATION LINES REPAIRER recently weaned off and transitioned to oral medications -- discussed with clinical pharmacist regarding pain medications. Continue PO Tylenol and Oxycodone around
the clock -- but wean Oxycodone as tolerated. Continue Low Residue Diet -- per colorectal surgery. TPN previously given, was recently stopped. Re-consulted GI regarding IBD maintenance medications/prophylaxis -- but patient has an outside
property master who she should have close follow-up with after discharge for consideration of IBD medication prophylaxis, as per GI, nothing else to do from GI standpoint while patient is inpatient.
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 Currently diet advanced to Low Residue. JAXSON drain as per colorectal surgery. Continue analgesics. Currently on IV antibiotics. Abdominal fluid culture reviewed.
Ileostomy with output.
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 Mandel of medical oncology regarding her carcinoid.
Post-Surgical Hypotension -blood pressure now improved overall.
-Still with some soft blood pressure readings.
-Possibly from operative blood loss anemia
-Tranexamic acid 1 g on 08/07/24
-Wean off narcotic pain medications as much as possible
Hyponatremia - RESOLVED - present on admission. Continue monitor. 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
Acute normocytic anemia at least partly due to GI blood loss. Hemoglobin improved and currently stable. Status post multiple blood transfusions.
Large degenerating fibroid - status post MP BSO intraoperatively on 08/05/24
-Follow-up with urogynecology outpatient (colorectal surgery discussed this with Dr. Dickson of outpatient urogynecology)
Depression
-Zoloft increased by psychiatry
-Appreciate psychiatry
Full code
Dispo -anticipate SNF on discharge.
DVT Prophylaxis: SCDs and Lovenox.
Anticipated Discharge: Within 24 hours
Subjective/Interval History
-
Date of Service: August 24, 2024
Patient was seen and examined. She denied pain or any other symptoms or complaints.
Objective Data
-
Labs:
Laboratory Results
08/24/24
04:30
WBC 6.4
Hgb 8.8 L
Hct 27.7 L
Plt Count 741 H
Sodium 140
Potassium 4.0
Chloride 105
Carbon Dioxide 25
BUN 10
Creatinine 0.5 L
Glucose 91
Calcium 8.5
Total Bilirubin < 0.1 L
AST 17
ALT 15
Alkaline Phosphatase 264 H
Vital Signs:
Vital Signs
Temp Pulse Resp BP Pulse Ox
98.3 F 81 16 103/73 94
08/24/24 07:05 08/24/24 07:05 08/24/24 07:05 08/24/24 07:05 08/24/24 07:05
I&O
08/23/24 08/24/24 08/25/24
06:59 06:59 06:59
Intake Total 1090 / 1090 1100 / 1100
Output Total 455 / 455 480 / 480
Balance 635 / 635 620 / 620
[2024-08-24] MEDS: LOVENOX 40 MG SC (17:11)
[2024-08-24] MEDS: LIDOCAINE 4% PATCH 1 PATCH TOPICAL (20:32)
[2024-08-25 02:46] VITALS: BP 115/76
[2024-08-25] MEDS: ROXICODONE 15 MG PO ×4 (05:13→23:30)
[2024-08-25] MEDS: TYLENOL 1000 MG PO ×3 (05:13→21:43)
[2024-08-25] MEDS: UNASYN IV ×4 (05:13→23:21)
[2024-08-25 05:48] LABS: % Basophils 0.7 % (0-2); % Eosinophils 3.9 % (0-6); % Immature Granulocytes 1.7 % (0-0.5); % Lymphocytes 37.5 % (20.5-51.1); % Monocytes 8.2 % (1.7-9.3); Absolute Basophils 0.1 10^3/uL (0-0.2); Absolute Eosinophils 0.3 10^3/uL (0-0.7); Absolute Immature Granulocytes 0.1 10^3/uL (0-0.05); Absolute Lymphocytes 3.1 10^3/uL (1.2-3.4); Absolute Monocytes 0.7 10^3/uL (0.1-0.6); Absolute Neutrophils 3.9 10^3/uL (1.4-6.5); Hematocrit 29.1 % (37.0-47.0); Hemoglobin 8.9 g/dL (12.0-16.0); Mean Corp Hgb Conc. 30.6 g/dL (33.0-37.0); Mean Corpuscular Hgb 28.2 pg (27.0-31.0); Mean Corpuscular Volume 92.1 fL (81.0-99.0); Mean Platelet Volume 8.8 fL (7.4-10.4); Nucleated Red Blood Cells % 0 %; Platelet Count 808 10^3/uL (130-400); Red Blood Cell Count 3.16 10^6/uL (4.20-5.40); Red Cell Dist. Width 16.3 % (11.5-14.5); White Blood Cell Count 8.1 10^3/uL (4.8-10.8)
[2024-08-25 06:00] VITALS: BMI 21.6
[2024-08-25 06:07] LABS: ALT (SGPT) 15 U/L (0-35); AST (SGOT) 17 U/L (14-36); Albumin 2.6 g/dl (3.5-5.0); Alkaline Phosphatase 271 U/L (38-126); Blood Urea Nitrogen 8 mg/dl (7-17); Calcium 8.6 mg/dl (8.4-10.2); Carbon Dioxide 25 mmol/L (22-30); Chloride 106 mmol/L (98-107); Estimated Creatinine Clearance 104 ml/min; Glucose 90 mg/dl (70-99); Magnesium 1.5 mg/dl (1.6-2.3); Phosphorus 4.5 mg/dl (2.5-4.5); Sodium 140 mmol/L (135-145); Total Bilirubin < 0.1 mg/dl (0.2-1.3); Total Protein 5.4 g/dl (6.3-8.2); Triglycerides 204 mg/dl (10-149); eGFR > 60.00
[2024-08-25 07:00] VITALS: BP 101/65
[2024-08-25] MEDS: PROTONIX IV 40 MG IV ×2 (08:05→19:42)
[2024-08-25] MEDS: ZOLOFT 75 MG PO (08:05)
[2024-08-25] MEDS: OSCAL 500 + D 500 MG PO (08:05)
[2024-08-25] MEDS: NSS (PRESERVATIVE FREE) 10 ML IV ×2 (08:05→19:42)
--- NOTE | 2024-08-25 09:08 | W.PN.CRS1 ---
Addendum entered and electronically signed by Fausto Lau MD 08/25/24 11:09:
Update: I did not recall this morning that the patient had just had a drain study this past Sunday and due to the residual abscess cavity still being present, it was left in. Given those details would hold off on drain study today and send out with
the drain and flushes with plans for eventual drain study as an outpatient.
Original Note:
Today's Communication / Plan
-
Disposition per hospitalist.
?drain study.
Assessment/Plan
-
POD 20.
1. tolerating diet with stoma output.
2. WBC normal/afebrile. On Augmentin per ID recs.
3. disposition per hospitalist. If not leaving today, could consider drain study by IR with a goal of drain removal.
Subjective Data
Procedure
08/05/24 Ex lap with total abdominal colectomy with end-ileostomy and MP BSO
Subjective Data
Date of Service: August 25, 2024
No complaints.
Tolerating po.
Objective Data
-
Vital Signs
Temp Pulse Resp BP Pulse Ox
99.1 F 91 16 101/65 96
08/25/24 07:00 08/25/24 07:00 08/25/24 07:00 08/25/24 07:00 08/25/24 07:00
Intake & Output
08/24/24 08/25/24 08/26/24
06:59 06:59 06:59
Intake Total 1100 / 1100 1260 / 1260
Output Total 480 / 480 650 / 650
Balance 620 / 620 610 / 610
Intake:
Oral fluids 600 / 600 720 / 720
Amount of oral supplement(s) 240 / 240
consumed
IV fluids (Total) 60 / 60
IV piggybacks 240 / 240 480 / 480
Amount instilled into Drain (
Total)
Left Upper Abdomen Placed in IR
Output:
Liquid stool amount 450 / 450 275 / 275
Ileostomy 450 / 450 275 / 275
Drain Output (Total)
Left Upper Abdomen Placed in IR
Urine, Voided 350 / 350
Other:
Number of approximated MODERATE 1
amounts of urine
Number of approximated LARGE 1
amounts of urine
Lab Results
08/25/24 05:02
08/25/24 05:02
Physical Exam
-
General: No Acute Distress
Chest: Clear
Cardiovascular: Regular Rate & Rhythm
Abdomen: Soft, Non Distended, Non Tender and Other (stoma viable with output; incision healing well; IR drain with manzano output)
--- NOTE | 2024-08-25 10:30 | W.PN.HOSP.TC ---
Today's Communication/Plan
-
IR consult for drain study
Change oxycodone to as needed
Discharge planning
Assessment / Plan
Assessment / Plan
Physical Exam
Gen-AAOx3, NAD
HEENT-NC, AT
Neck-supple
CV-reg, no M, +S1/S2
Lungs-clear B/L
Abd-soft, NT, ND, ostomy intact, abdominal dressing with drain
Ext-no edema
Musculoskeletal-no cyanosis
Skin-warm and dry
Neuro-grossly non-focal
Psych-calm, cooperative
Assessment/Plan
Sepsis -due to intra-abdominal abscess. CT confirmed small intra-abdominal collections. Largest is left upper quadrant measuring up to 4.7 cm in diameter. Another small collection at the ostomy site measures up to 3.9 cm in diameter. Drain
placed by IR on 08/15. OR cultures noted (MSSA, E. coli, Kleb pneumoniae, Strep) and abscess cultures (E. faecalis, E. coli, Kleb pneumoniae). ID consulted, appreciate their evaluation and recommendations: narrow Zosyn to Unasyn, with plan for
Augmentin 875mg PO bid through 09/04/24.
IR consulted for drain study today. Discussed with colorectal surgery.
Hives rash from abdomen to chest to left neck/shoulder left arm -- IMPROVED OF 08/23/24 and 08/24/24 -- discussed with ID, no concern for drug rash. Change bedsheets, Benadryl as needed
Left ear pain - RESOLVED - looks normal on exam. ENT input noted. Warm compresses. Pain possibly related to NG tube. Improves with Tylenol.
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 Given dose of Remicade in [facility] late June, discharged with prescription for mesalamine that she did not fill, and Steroid taper.
Abdominal pain has significantly improved. She does look comfortable. Dilaudid DIRECTOR TALENT ACQUISITION recently weaned off and transitioned to oral medications -- discussed with clinical pharmacist regarding pain medications. Continue PO Tylenol and Oxycodone around
the clock -- but wean Oxycodone as tolerated. Continue Low Residue Diet -- per colorectal surgery. TPN previously given, was recently stopped. Re-consulted GI regarding IBD maintenance medications/prophylaxis -- but patient has an outside
layout operator who she should have close follow-up with after discharge for consideration of IBD medication prophylaxis, as per GI, nothing else to do from GI standpoint while patient is inpatient.
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 Currently diet advanced to Low Residue. JAXSON drain as per colorectal surgery. Continue analgesics. Currently on IV antibiotics. Abdominal fluid culture reviewed.
Ileostomy with output.
Will change oxycodone to as needed. Discussed with patient and nursing.
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 Mandel of medical oncology regarding her carcinoid.
Post-Surgical Hypotension -blood pressure now improved overall.
-Still with some soft blood pressure readings.
-Possibly from operative blood loss anemia
-Tranexamic acid 1 g on 08/07/24
-Wean off narcotic pain medications as much as possible
Hyponatremia - RESOLVED - present on admission. Continue monitor. 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
Acute normocytic anemia at least partly due to GI blood loss. Hemoglobin improved and currently stable. Status post multiple blood transfusions.
Large degenerating fibroid - status post MP BSO intraoperatively on 08/05/24
-Follow-up with urogynecology outpatient (colorectal surgery discussed this with Dr. Dickson of outpatient urogynecology)
Depression
-Zoloft increased by psychiatry
-Appreciate psychiatry
Full code
Dispo -medically stable for discharge to SNF. Case management aware.
Anticipated Discharge: Within 24 hours
Subjective/Interval History
-
Date of Service: August 25, 2024
Patient seen and examined. Complaining of vague abdominal discomfort.
Objective Data
-
Labs:
Laboratory Results
11/11/24
05:02
WBC 8.1
Hgb 8.9 L
Hct 29.1 L
Plt Count 808 H
Sodium 140
Potassium 4.0
Chloride 106
Carbon Dioxide 25
BUN 8
Creatinine 0.6
Glucose 90
Calcium 8.6
Total Bilirubin < 0.1 L
AST 17
ALT 15
Alkaline Phosphatase 271 H
Vital Signs:
Vital Signs
Temp Pulse Resp BP Pulse Ox
99.1 F 91 16 101/65 96
08/25/24 07:00 08/25/24 07:00 08/25/24 07:00 08/25/24 07:00 08/25/24 07:00
I&O
08/24/24 08/25/24 08/26/24
06:59 06:59 06:59
Intake Total 1100 / 1100 1260 / 1260
Output Total 480 / 480 650 / 650
Balance 620 / 620 610 / 610
Review of Systems
-
History Source: Patient
All other systems: Reviewed and negative
[2024-08-25 11:00] VITALS: BP 113/64
--- NOTE | 2024-08-25 11:44 | CM ---
Met with patient at bedside.
Started auth process with [facility] for [facility] - Danielle liaison notified and gave pending auth #.
Spoke with Digna Cho at [facility] ([phone]) & Faxed clinicals to her at [phone]
Pending auth # [id number]
Transportation forms on chart.
PLAN: Await approval for [facility]
Report #: [phone]
Fax #: [phone]
[2024-08-25] MEDS: TYLENOL PO (13:14)
[2024-08-25 15:00] VITALS: BP 116/65
--- NOTE | 2024-08-25 15:40 | W.PN.ID1 ---
Date of Service
Date of Service: August 25, 2024
Today's Communication
Continue antibiotics.
Assessment / Plan
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
- s/p subtotal colectomy, end ileostomy, MP, BSO 08/05/24
- OR cx : MSSA, E. coli, Kleb pneumoniae, Strep
# Intra-abdominal abscess
-s/p perc drain 08/15/2024
-Abscess cx: E. faecalis, E. coli, Kleb pneumoniae
Recommendations:
- Continue Unasyn.
- At time of discharge, can transition to Augmentin 875mg po bid, to continue abx through 09/04/24.
Chief Complaint
-: Other (Intrabdominal abscess.)
Subjective / Review of Systems
Review of Systems: No Fever and No Chills
Vital Signs / Physical Exam
Vital Signs
Vital Signs
Temp Pulse Resp BP Pulse Ox
98.8 F 86 17 113/64 99
08/25/24 11:00 08/25/24 11:00 08/25/24 11:00 08/25/24 11:00 08/25/24 11:00
Physical Exam
Constitutional: No Acute Distress, Comfortable and Non-toxic
Eyes: Sclera Anicteric
Pulmonary: Non Labored
Gastrointestinal: Non Distended and Other (Ostomy in place)
Neurological: Awake and Alert
Psychological: Calm
Objective Data
Lab Data
Lab Results
08/25/24 05:02
08/25/24 05:02
ESR 92 mm/hour (0-20) H 07/26/24 06:32
PT 17.4 Sec (11.4-14.6) H 08/15/24 14:04
INR 1.44 08/15/24 14:04
APTT 44.9 Sec (23.4-35.0) H 08/15/24 14:04
Estimated Creat Clear 104 ml/min 08/25/24 05:02
Lactic Acid 1.0 mmol/L (0.7-2.0) 08/11/24 21:02
Total Bilirubin < 0.1 mg/dl (0.2-1.3) L 08/25/24 05:02
GGT 897 U/L (12-43) H 07/27/24 08:01
AST 17 U/L (14-36) 08/25/24 05:02
ALT 15 U/L (0-35) 08/25/24 05:02
Alkaline Phosphatase 271 U/L (38-126) H 08/25/24 05:02
C-Reactive Protein 226.90 mg/L (0.0-10.00) H 08/07/24 06:09
Most recent labs reviewed.
Micro Results:
08/15/24 16:25 Wound Culture - Final
Abdomen Enterococcus faecalis
Escherichia coli
Klebsiella pneumoniae
Gram Stain - Final
08/12/24 10:30 Blood Culture - Final
Blood/Venous No Growth - Final Report
08/12/24 10:01 Blood Culture - Final
Blood/Venous No Growth - Final Report
08/05/24 14:00 Wound Culture - Final
Abdomen Escherichia coli
Klebsiella pneumoniae
S aureus-Methicillin Sensitive
Streptococcus species
Gram Stain - Final
08/05/24 14:00 Anaerobic Culture - Final
Abdomen
07/26/24 15:09 Salmonella/Shigella Culture - Final
Feces/Stool No Salmonella, Shigella, Aeromonas or Plesiomonas species
isolated.
Campylobacter Culture - Final
No Campylobacter species isolated.
- Final
NO YERSINIA SPECIES ISOLATED
Shiga Toxin Test - Final
No E. coli Shiga Toxin 1 or 2 detected.
Stool Leukocytes - Final
07/26/24 15:09 Cryptosporidium/Giardia - Final
Feces/Stool Negative for Cryptosporidium and/or Giardia Lamblia
antigens.
C. difficile GDH Antigen & Toxins - Final
Negative for toxigenic C.difficile
07/26/24 CT a/p: Diffuse colonic and rectal wall thickening with some stranding in the adjacent fat consistent with diffuse colitis and likely secondary to known ulcerative colitis.10.8 x 8.4 cm peripherally calcified lesion within the uterus,
likely large, partially calcified fibroid.
08/04/24 AXR: There is new bowel wall thickening with some thumbprinting in the mid descending colon such as may be seen with inflammatory bowel disease or ischemia.
The bowel gas pattern is otherwise not significantly changed with differential diagnosis including ileus and Elgin's syndrome
08/09/24 CT a/p: Interval postoperative changes as described. Probable diffuse postoperative ileus and pneumoperitoneum. No darrell transition point/obstruction. Fluid distention of the distal esophagus, new from prior and likely reflects
gastroesophageal reflux.
08/15/24 CT a/p: Portable small intra-abdominal collections as above. Largest in the left upper quadrant contains gas and fluid and measures up to 4.7 cm in diameter, suspicious for abscess. Another small triangular collection via the ostomy site
measures up to 3.9 cm in diameter and may represent small abscess.
--- NOTE | 2024-08-25 15:59 | WOUNDNOTE ---
[facility] RN note: Stoma pink and almost flush. Patient has peristomal creases mostly at 9 o'clock. +Peristomal yeast rash. Instructed patient how to treat peristomal rash with light dusting of miconazole powder followed by no sting barrier wipe. Changed
appliance with instruction using [place] wafer # [id number], Flora seal and Pete pouch #[id number]. Ostomy supplies in room. Reviewed ileostomy teaching folder with patient. Patient emptied her pouch, cut out wafer and snapped on pouch. She still
however, hasn't looked at her stoma for more than a few seconds without getting upset. Emotional support given. Patricia/coccyx with mild yeast rash. Linear open area almost newly healed. Miconazole powder and Calazime applied to patricia/coccyx skin.
Patient is on a Waffle air overlay and has an air chair cushion. She can turn herself in bed. Patient for possible transfer to SNF tomorrow.
[2024-08-25] MEDS: XANAX 0.25 MG PO (16:01)
[2024-08-25] MEDS: LOVENOX 40 MG SC (17:28)
[2024-08-25] MEDS: LIDOCAINE 4% PATCH 1 PATCH TOPICAL (19:42)
[2024-08-25 23:30] VITALS: BP 108/76
[2024-08-26] MEDS: UNASYN IV ×2 (05:12→11:00)
[2024-08-26] MEDS: TYLENOL 1000 MG PO ×2 (05:12→12:50)
[2024-08-26 05:22] VITALS: BMI 21.6
[2024-08-26 08:00] VITALS: BP 119/79
[2024-08-26] MEDS: PROTONIX IV 40 MG IV (08:10)
[2024-08-26] MEDS: ZOLOFT 75 MG PO (08:10)
[2024-08-26] MEDS: OSCAL 500 + D 500 MG PO (08:10)
[2024-08-26] MEDS: NSS (PRESERVATIVE FREE) 10 ML IV (08:10)
[2024-08-26] MEDS: DILAUDID 0.25 MG IV (08:15)
--- NOTE | 2024-08-26 09:28 | CM ---
Addendum entered by Geovanna Díaz 08/26/24 11:06:
Received a call from Nayla Hayden at [facility]
Authorization approved - Cert # [id number]
Start date 09/25/24 NRD 09/02/24
Fax updates to [phone]
Addendum entered by Geovanna Díaz 08/26/24 10:56:
PLAN: Await approval for [facility]
Report #: [id number]
Fax #: [phone]
Original Note:
Spoke to Rebekah at [facility] - auth # [id number] is still pending
She stated they will call when it is approved.
--- NOTE | 2024-08-26 10:58 | CM ---
Patient in room with asim Sauceda
chart reviewed
Current with [facility] - declines SNF as recommended by PT
PT continue & CM will continue to follow
PLAN: FRANCISCO [facility]ENV[facility]
--- NOTE | 2024-08-26 11:30 | W.DS.TRANS ---
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
-
Discharge Instructions:
Discharge Diagnosis/Procedures Sepsis, intra-abdominal abscess, inflammatory
bowel disease, pneumoperitoneum, anemia
Diet Low Residue
Activity As tolerated,With assistance
Driving Restrictions No driving
Bathing Restrictions None
Blood Work CBC in 1 week
Instructions: [place] Drain
How to Keep Track of Your Drainage
Stand-Alone Forms:
Changes to Home Medications: No
Discharge Medications:
DC Medications w/original date entered in [employer]
melatonin 5 mg tablet 5 mg PO HSPRN PRN sleep 07/26/24
alprazolam 0.25 mg tablet 0.25 mg PO Q8HPRN PRN anxiety #4 tabs 08/26/24
amoxicillin 875 mg-potassium clavulanate 125 mg tablet 1 tab PO BID #18 tabs 08/26/24
calcium 500 mg (as carbonate)-vitamin D3 5 mcg (200 unit) tablet (Oyster Shell Calcium-Vitamin D3) 1 tab PO DAILY #0 tabs 08/26/24
oxycodone 15 mg tablet 15 mg PO Q6 PRN severe pain #6 tabs 08/26/24
pantoprazole 40 mg tablet,delayed release (Protonix) 40 mg PO BID #60 tabs 08/26/24
sertraline 25 mg tablet 75 mg (3 x 25 mg) PO DAILY #0 tabs 08/26/24
Home Medication Changes
Pending Results: No
--- NOTE | 2024-08-26 11:37 | W.PN.HOSP.TC ---
Today's Communication/Plan
-
Discharge
Assessment / Plan
Assessment / Plan
Physical Exam
Gen-AAOx3, NAD
HEENT-NC, AT
Neck-supple
CV-reg, no M, +S1/S2
Lungs-clear B/L
Abd-soft, NT, ND, ostomy intact, abdominal dressing with drain
Ext-no edema
Musculoskeletal-no cyanosis
Skin-warm and dry
Neuro-grossly non-focal
Psych-calm, cooperative
Assessment/Plan
Sepsis -due to intra-abdominal abscess. CT confirmed small intra-abdominal collections. Largest is left upper quadrant measuring up to 4.7 cm in diameter. Another small collection at the ostomy site measures up to 3.9 cm in diameter. Drain
placed by IR on 08/15. OR cultures noted (MSSA, E. coli, Kleb pneumoniae, Strep) and abscess cultures (E. faecalis, E. coli, Kleb pneumoniae). ID consulted, appreciate their evaluation and recommendations: narrow Zosyn to Unasyn, with plan for
Augmentin 875mg PO bid through 09/04/24.
Drain study completed last Sunday, IR recommends keeping drain on discharge and follow-up as outpatient. Informed IR service today that she will be discharged today and will need outpatient follow-up.
Hives rash from abdomen to chest to left neck/shoulder left arm -- IMPROVED OF 08/23/24 and 08/24/24 -- discussed with ID, no concern for drug rash. Change bedsheets, Benadryl as needed
Left ear pain - RESOLVED - looks normal on exam. ENT input noted. Warm compresses. Pain possibly related to NG tube. Improves with Tylenol.
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 Given dose of Remicade in [facility] late June, discharged with prescription for mesalamine that she did not fill, and Steroid taper.
Abdominal pain has significantly improved. She does look comfortable. Dilaudid PROJECT SCIENTIST recently weaned off and transitioned to oral medications -- discussed with clinical pharmacist regarding pain medications. Continue PO Tylenol and Oxycodone around
the clock -- but wean Oxycodone as tolerated. Continue Low Residue Diet -- per colorectal surgery. TPN previously given, was recently stopped. Re-consulted GI regarding IBD maintenance medications/prophylaxis -- but patient has an outside
engineer of system development who she should have close follow-up with after discharge for consideration of IBD medication prophylaxis, as per GI, nothing else to do from GI standpoint while patient is inpatient.
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 Currently diet advanced to Low Residue. JAXSON drain as per colorectal surgery. Continue analgesics. Currently on IV antibiotics. Abdominal fluid culture reviewed.
Ileostomy with output.
Will change oxycodone to as needed. Discussed with patient and nursing.
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 Mandel of medical oncology regarding her carcinoid.
Post-Surgical Hypotension -blood pressure now improved overall.
-Still with some soft blood pressure readings.
-Possibly from operative blood loss anemia
-Tranexamic acid 1 g on 08/07/24
-Wean off narcotic pain medications as much as possible
Hyponatremia - RESOLVED - present on admission. Continue monitor. 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
Acute normocytic anemia at least partly due to GI blood loss. Hemoglobin improved and currently stable. Status post multiple blood transfusions.
Large degenerating fibroid - status post MP BSO intraoperatively on 08/05/24
-Follow-up with urogynecology outpatient (colorectal surgery discussed this with Dr. Dickson of outpatient urogynecology)
Depression
-Zoloft increased by psychiatry
-Appreciate psychiatry
Full code
Dispo -medically stable for discharge to SNF. Case management aware.
35 min spent in discharge process.
Anticipated Discharge: Today
Subjective/Interval History
-
Date of Service: August 26, 2024
Patient seen and examined. No new complaints.
Objective Data
-
Vital Signs:
Vital Signs
Temp Pulse Resp BP Pulse Ox
98.0 F 79 18 119/79 95
08/26/24 08:00 08/26/24 08:00 08/26/24 08:00 08/26/24 08:00 08/26/24 08:00
I&O
08/25/24 08/26/24 08/27/24
06:59 06:59 06:59
Intake Total 1260 / 1260 1420 / 1420
Output Total 650 / 650 730 / 730
Balance 610 / 610 690 / 690
Review of Systems
-
History Source: Patient
All other systems: Reviewed and negative
[2024-08-26] MEDS: ROXICODONE 15 MG PO (12:49)
[2024-08-26] MEDS: AFLURIA (36 mos+) 2024-2025 FORMULA 0.5 ML IM (12:49)
[2024-08-26 15:02] VITALS: BP 109/72
== END 2024-08-26 15:22 | DRG 329 ==
LOC: 2 NORTH 02:25
PROVIDERS: Emergency Medicine; Hospitalist; Internal Medicine; Internal Medicine Gastroenterology; Nurse Practitioner; Nurse Practitioner Adult Health; Nurse Practitioner Family; Obstetrics & Gynecology Gynecologic Oncology; Physician Assistant; Radiology Diagnostic Radiology; Radiology Neuroradiology; Registered Nurse; Student in an Organized Health Care Education/Training Program; Surgery; ADMITTING PHYSICIAN Internal Medicine; ATTENDING PHYSICIAN Hospitalist; CONSULT PHYSICIAN Internal Medicine Gastroenterology; CONSULT PHYSICIAN Internal Medicine Infectious Disease; CONSULT PHYSICIAN Otolaryngology; CONSULT PHYSICIAN Surgery; EMERGENCY PHYSICIAN Emergency Medicine; FAMILY PHYSICIAN Family Medicine; OTHER PHYSICIAN Internal Medicine Hematology & Oncology; OTHER PHYSICIAN Psychiatry & Neurology Psychiatry
PROC: 30233N1 Transfusion of Nonautologous Red Blood Cells into Peripheral Vein, Percutaneous Approach (ICD-10-PCS; 2024-07-26)
PROC: 0D1B0Z4 Bypass Ileum to Cutaneous, Open Approach (ICD-10-PCS; 2024-08-05)
PROC: 0UT70ZZ Resection of Bilateral Fallopian Tubes, Open Approach (ICD-10-PCS; 2024-08-05)
PROC: 0UT90ZZ Resection of Uterus, Open Approach (ICD-10-PCS; 2024-08-05)
PROC: 0DBN0ZZ Excision of Sigmoid Colon, Open Approach (ICD-10-PCS; 2024-08-05)
PROC: 0DTE0ZZ Resection of Large Intestine, Open Approach (ICD-10-PCS; 2024-08-05)
PROC: 0UT20ZZ Resection of Bilateral Ovaries, Open Approach (ICD-10-PCS; 2024-08-05)
PROC: 02H633Z Insertion of Infusion Device into Right Atrium, Percutaneous Approach (ICD-10-PCS; 2024-08-06)
PROC: 0D9670Z Drainage of Stomach with Drainage Device, Via Natural or Artificial Opening (ICD-10-PCS; 2024-08-09)
PROC: 0W9G30Z Drainage of Peritoneal Cavity with Drainage Device, Percutaneous Approach (ICD-10-PCS; 2024-08-15)
PROC: 3E0336Z Introduction of Nutritional Substance into Peripheral Vein, Percutaneous Approach (ICD-10-PCS; 2024-08-16)
PROC: 3E02340 Introduction of Influenza Vaccine into Muscle, Percutaneous Approach (ICD-10-PCS; 2024-08-26)
DX: K51.811 Other ulcerative colitis with rectal bleeding (principal); A41.9 Sepsis, unspecified organism; K63.1 Perforation of intestine (nontraumatic); K65.1 Peritoneal abscess; D62 Acute posthemorrhagic anemia; E87.1 Hypo-osmolality and hyponatremia; K91.89 Other postprocedural complications and disorders of digestive system; K56.7 Ileus, unspecified; E46 Unspecified protein-calorie malnutrition; Z59.01 Sheltered homelessness; K21.9 Gastro-esophageal reflux disease without esophagitis; D50.9 Iron deficiency anemia, unspecified; I95.9 Hypotension, unspecified; N26.1 Atrophy of kidney (terminal); D25.9 Leiomyoma of uterus, unspecified; F32.A Depression, unspecified; I95.81 Postprocedural hypotension; H92.02 Otalgia, left ear; B96.20 Unspecified Escherichia coli [E. coli] as the cause of diseases classified elsewhere; B96.1 Klebsiella pneumoniae [K. pneumoniae] as the cause of diseases classified elsewhere; B96.89 Other specified bacterial agents as the cause of diseases classified elsewhere; D3A.012 Benign carcinoid tumor of the ileum; L40.9 Psoriasis, unspecified; Z23 Encounter for immunization; Z11.52 Encounter for screening for COVID-19; Y83.8 Other surgical procedures as the cause of abnormal reaction of the patient, or of later complication, without mention of misadventure at the time of the procedure; Z79.899 Other long term (current) drug therapy; Z68.21 Body mass index [BMI] 21.0-21.9, adult
CPT/HCPCS: 88307; 88311; 36430; 49406; 49424; 71045; 71046; 74018; 74019; 74022; 74177; 76080; 80048; 80053; 81003; 81015; 82247; 82607; 82728; 82746; 82962; 82977; 83540; 83550; 83605; 83615; 83690; 83735; 84100; 84478; 85018; 85025; 85027; 85610; 85652; 85730; 86140; 86480; 86704; 86706; 86803; 86850; 86900; 86901; 86920; 87040; 87045; 87046; 87070; 87075; 87077; 87147; 87186; 87205; 87324; 87328; 87329; 87340; 87427; 87449; 87811; 88341; 88342; 89055; 93005; 93970; 96374; 96375; 97110; 97116; 97163; 97166; 97168; 97530; 97535; 99152; 99153; 99285; C1776; J1335; J2916; J3480; P9016; Q9967

== ENCOUNTER 2024-08-30 16:47 | Inpatient (IN) | payer OTHER, SELFPAY ==
[2024-08-30] VITALS (9 sets, daily range): BP systolic 101–124; BP diastolic 68–90; BMI 21.7; BMI 19.9
--- NOTE | 2024-08-30 11:49 | ED.GENMED ---
History of Present Illness
General
Chief Complaint: Chest Pain
Time Seen by Provider: 08/30/24 11:35
History of Present Illness
History of Present Illness:
54-year-old female with history of Crohn's disease, depression, anemia presenting to the emergency department for left-sided chest pain. Patient reports symptom started about 2 hours prior to arrival. Does note some shortness of breath associated.
Denies cough or fever. Patient with recent extended hospital admission, from 07/25 to 08/20. Patient was admitted with colitis, status post hemicolectomy with now colostomy. Patient received oxycodone prior to arrival for pain, reports the chest
pain. Denies known cardiac issues. Denies history of blood clot. Does report physical therapy yesterday, however denies any known injury or trauma to the chest wall. Does note some abdominal discomfort around her surgical incisions, however
reports this has been present since her surgery. She denies additional medical complaints.
Past History
Past History
ED Past Medical History: Other (Crohn's disease/ulcerative colitis; gastroesophageal reflux disease; uterine fibroids)
ED Past Surgical History: Other (fibroid surgery)
Social History
Tobacco: Non-smoker
Alcohol: Occasional
Drug: None
Phy Exam
Physical Exam
Physical Exam:
General: Well-appearing, no clinical signs of dehydration, nontoxic and in no acute distress
HEENT: protecting airway
Neck: appears supple
CV: Normal heart rate, regular rhythm. Tenderness to the left chest wall. No crepitus.
Resp: No accessory muscle use, no increased work of breathing, lungs clear to auscultation bilaterally
Abd: Soft and non-distended, moderate output from colostomy site, normal appearance incisions are clean/dry/intact. No palpable focal tenderness
Extremities: No deformities, no swelling, no erythema, pulses and sensation intact
Neuro: alert, no focal neurologic deficit
: deferred
Rectal: deferred
Psych: Normal affect
Skin: Intact
Scores
Heart Score for Chest Pain Patients
STEMI patient?: No
History: Slightly or Non-Suspicious
ECG: Normal
Age: >45 - <65 years
Risk Factors: 1 or 2 Risk Factors
Troponin: </= Normal Limit
Heart Score for Chest Pain Patients: 2
Heart Score Risk: 2.5% MACE over next 6 weeks
Course
Orders/Labs/Results
Orders:
Orders
08/30/24 11:38
EKG [Electrocardiogram (*1)] Urgent
Reason for Study: Chest Pain
EKG- Treatment ONCE
08/30/24 11:44
Ketorolac [Toradol] 15 mg IV NOW STA
CR Chest - 2 Views Urgent
Comment:
Reason For Exam: chest pain
08/30/24 11:46
Complete Blood Count/With Diff Urgent
Comprehensive Metabolic Panel Urgent
LDH Urgent
Comment: ADD ON
Troponin I Urgent
08/30/24 11:48
D-Dimer Urgent
08/30/24 12:24
CT Chest Pe Study Urgent
Comment:
Reason For Exam: chest pain, positive dimer
08/30/24 Dinner
Low Residue
At Your Request: Full Participation
Does patient need a safe tray?: No
08/30/24 16:03
Admit/Transfer Patient As Directed
Co-Sign Provider:
Level of Care: Inpatient admission
Assign to:: Medical/Surgical
Physician / Group: zeeshan salmeron
Diagnosis: cp 2/2 Left sided plueral effusion
Reason for Hospitalization: cp 2/2 Left sided plueral effusion
Expected length of stay greater than two midnights?: Yes
ELOS- Estimated Length of Stay in days: 3
I certify the patient meets the requirements for IP care: Yes
Code Status As Directed
Resuscitation Status: Full Code
08/30/24 16:08
PRN Pain Medication Management As Directed
May give lesser potent ordered pain med per pt: Yes
preference::
Protocol:: Medication orders for pain may be administered in a
manner that supports deferring to patient preference
when the pt is:
- Requesting an ordered lesser potent pain medication.
Least to most potent pain medications are defined
as: acetaminophen < NSAID < tramadol < opioids
(morphine, oxycodone, hydromorphone).
- Requesting a lesser dose of the same medication IF
ORDERED.
- Requesting a less intrusive route of administration
if both routes are prescribed by the provider (PO <
IV).
08/30/24 18:14
Acetaminophen [Tylenol] 650 mg PO Q4HPRN PRN
Alprazolam [Xanax] 0.25 mg PO Q8HPRN PRN
Bisacodyl [Dulcolax] 10 mg RECTAL DAILYPRN PRN
Enoxaparin Sodium [Lovenox] 40 mg SC QPM
Magnesium Hydroxide [Milk of Magnesia] 30 ml PO DAILYPRN PRN
Melatonin 5 mg PO HSPRN PRN
Ondansetron Injectable [Zofran] 4 mg IV Q6HPRN PRN
08/30/24 18:14
Add On- LAB Routine
Tests Added?: Body Fluid Triglycerides
IRAD CONSULT Routine
Consulting Provider: Leroy Mathias
Was physician already notified: Yes
Reason for Consult/Procedure: mod left sided pleural eff
Acknowledgement that appropriate orders are entered: Yes
Acid Fast Culture & Smear Routine
DARSHANA Source: Pleural Fluid
Specimen Description:
Comment: post procedure
Body Fluid Amylase Routine
Fluid Source: Pleural
Body Fluid Cell Count Routine
What is the Body Fluid: pleural fluid
Comment: post procedure
Body Fluid Glucose Routine
Fluid Source: Pleural
Body Fluid LDH Routine
Fluid Source: Pleural
Body Fluid Protein Routine
Fluid Source: Pleural
Body Fluid Triglycerides Routine
Fluid Source: Pleural
Body Fluid pH Routine
Fluid Source: Pleural
Fluid Culture with Gram Stain Routine
DARSHANA Source: Pleural Fluid
Specimen Description:
Comment: post procedure
Fungus Culture Routine
DARSHANA Source: Pleural Fluid
Specimen Description:
Fungus Smear Routine
DARSHANA Source: Pleural Fluid
Specimen Description:
Gram Stain Routine
DARSHANA Source: Pleural Fluid
Specimen Description:
Comment: POST PROCEDURE
Activity As Directed
Activity Level: With Assistance
Intake/ Output As Directed
Frequency: Per unit guidelines
Comment: monitor ileosomty output and JAXSON drain output
Vital Signs As Directed
Frequency: Per unit guidelines
Weight As Directed
Frequency: Daily
IRAD Cytology Routine
Source: Pleural Fluid, Left
Clinical Impression: recent carcinoid abdomen
Ot Eval And Treat Routine
Pt Eval And Treat Routine
Activity Level: With Assistance
DX Deep Vein Thrombosis Video Routine
08/30/24 18:31
Oxycodone [Roxicodone] 15 mg PO Q6HPRN PRN
08/30/24 20:00
Amoxicillin 875 mg/Clav 125 mg [Augmentin 875 mg/125 mg] 1 tablet PO BID
Pantoprazole [Protonix] 40 mg PO BID
08/31/24 06:00
Complete Blood Count/With Diff IN AM
Comprehensive Metabolic Panel IN AM
08/31/24 08:00
Calcium Carbonate [Oscal Carlos Alberto 500] 500 mg PO DAILY
Sertraline HCl [Zoloft] 75 mg PO DAILY
09/01/24 06:00
Complete Blood Count/With Diff IN AM
Comprehensive Metabolic Panel IN AM
09/02/24 06:00
Complete Blood Count/With Diff IN AM
Comprehensive Metabolic Panel IN AM
09/03/24 06:00
Complete Blood Count/With Diff IN AM
Comprehensive Metabolic Panel IN AM
Abnormal Lab Results
08/30/24 08/30/24
11:46 11:48
RBC 3.77 L 10^6/uL
(4.20-5.40)
Hgb 10.7 L D g/dL
(12.0-16.0)
Hct 34.4 L %
(37.0-47.0)
MCHC 31.1 L g/dL
(33.0-37.0)
RDW 16.8 H %
(11.5-14.5)
Plt Count 749 H 10^3/uL
(130-400)
Abs Immat Gran (auto) 0.1 H 10^3/uL
(0-0.05)
Absolute Lymphs (auto) 3.9 H 10^3/uL
(1.2-3.4)
D-Dimer 2.67 H ug/mlFEU
(0.00-0.50)
BUN 4 L mg/dl
(7-17)
Creatinine 0.5 L mg/dL
(0.6-1.0)
Glucose 104 H mg/dl
(70-99)
Alkaline Phosphatase 249 H U/L
(38-126)
Albumin 3.2 L g/dl
(3.5-5.0)
08/30/24 11:46
08/30/24 11:46
Vital Signs
Initial and Last Documented VS:
Initial Vital Signs
BP
122/90
08/30/24 11:33
Last Documented Vital Signs
Temp Pulse Resp BP Pulse Ox
98.4 F 78 18 101/70 93
08/30/24 23:47 08/30/24 23:47 08/30/24 23:47 08/30/24 23:47 08/30/24 23:47
MDM/Problems Addressed
MDM/Problems Addressed:
54-year-old female with history of Crohn's disease, depression, anemia presenting to the emergency department for left-sided chest pain, which started 2 hours prior to arrival. Vital signs on arrival are normal.
On exam patient resting comfortably, no acute distress or discomfort. Benign cardiac and pulmonary exam, with reproducible tenderness to the chest wall. Possible musculoskeletal component. EKG obtained on arrival, nonischemic without change from
prior. Lower suspicion. Will screen with laboratory analysis including troponin. Given recent surgery, prolonged immobility, will also obtain D-dimer to ensure no blood clot. Administered for pain. Patient sent partial colectomy. Patient's
incisions appear to be healing appropriately without focal tenderness in the abdomen or for intra-abdominal issue
12:20 -chest x-ray shows a large left-sided pleural effusion, likely contributing to patient's pain. Unclear etiology. Dimer is positive. For this reason we will obtain CT of the chest
14:40 -CT without evidence of PE, however there is again evidence of a loculated effusion. Patient's pain and size of effusion, will plan for admission, possible thoracentesis. Patient agreeable to plan
*EKG
Interpreted by ED Provider?: Yes
EKG Intrepretation Date: 08/30/24
EKG Intrepretation Time: 12:03
Interpretation: normal
Comparison EKG: no changes (08/15/24)
Heart Rate: 95
Rate: normal
Rhythm: sinus
Interval: normal interval
QRS Pattern: normal QRS
Ischemia: no ischemia
*Critical Care Note
Total Time (30-74mins, 75-104mins- exclusive of procedures): Not Applicable
ED Attending Note
-
Portions of this chart may have been created with voice recognition software.� Occasional wrong word or��sound alike� substitutions may have occurred due to the inherent limitations of voice recognition software.
Discharge Plan
Departure
Patient Disposition: Admit
Date of Disposition: 08/30/24
Time of Disposition: 14:45
Presentation/result/management discussed w/ accepting MD/DO: Hospitalist
Discharge Problem:
Shortness of breath, Loculated pleural effusion
Interventions
Interventions:
*Risk Screen - Suicide Last Done: 08/30/24 11:37
*General Assessment Last Done: 08/30/24 11:37
*Neglect/Abuse Screening Last Done: 08/30/24 11:37
ED- Fall Risk Assessment Last Done: 08/30/24 17:20
*ED COVID-19 Vaccine History Last Done: 08/30/24 11:37
*Nursing Disposition Last Done: 08/30/24 18:07
ED- Cardiac Assessment Last Done: 08/30/24 11:30
Discharge Date and Time
Discharge Date/Time: 08/30/24 18:07
[2024-08-30 12:13] LABS: ALT (SGPT) 16 U/L (0-35); AST (SGOT) 22 U/L (14-36); Albumin 3.2 g/dl (3.5-5.0); Alkaline Phosphatase 249 U/L (38-126); Blood Urea Nitrogen 4 mg/dl (7-17); Calcium 9.3 mg/dl (8.4-10.2); Carbon Dioxide 28 mmol/L (22-30); Chloride 103 mmol/L (98-107); Estimated Creatinine Clearance 104 ml/min; Glucose 104 mg/dl (70-99); Sodium 140 mmol/L (135-145); Total Bilirubin 0.2 mg/dl (0.2-1.3); Total Protein 6.3 g/dl (6.3-8.2); eGFR > 60.00
[2024-08-30 12:16] LABS: Troponin I < 0.012 ng/ml
[2024-08-30 12:17] LABS: D-Dimer 2.67 ug/mlFEU (0.00-0.50)
[2024-08-30] MEDS: TORADOL 15 MG IV (12:24)
[2024-08-30 12:43] LABS: % Basophils 0.7 % (0-2); % Eosinophils 1.8 % (0-6); % Immature Granulocytes 0.5 % (0-0.5); % Lymphocytes 42.1 % (20.5-51.1); % Monocytes 6.6 % (1.7-9.3); % Neutrophils 48.3 % (42.2-75.2); Absolute Basophils 0.1 10^3/uL (0-0.2); Absolute Eosinophils 0.2 10^3/uL (0-0.7); Absolute Immature Granulocytes 0.1 10^3/uL (0-0.05); Absolute Lymphocytes 3.9 10^3/uL (1.2-3.4); Absolute Monocytes 0.6 10^3/uL (0.1-0.6); Absolute Neutrophils 4.4 10^3/uL (1.4-6.5); Hematocrit 34.4 % (37.0-47.0); Hemoglobin 10.7 g/dL (12.0-16.0); Mean Corp Hgb Conc. 31.1 g/dL (33.0-37.0); Mean Corpuscular Hgb 28.4 pg (27.0-31.0); Mean Corpuscular Volume 91.2 fL (81.0-99.0); Mean Platelet Volume 8.6 fL (7.4-10.4); Nucleated Red Blood Cells % 0 %; Platelet Count 749 10^3/uL (130-400); Red Blood Cell Count 3.77 10^6/uL (4.20-5.40); Red Cell Dist. Width 16.8 % (11.5-14.5); White Blood Cell Count 9.2 10^3/uL (4.8-10.8)
--- NOTE | 2024-08-30 14:56 | HPS.HSE ---
Family Physician
-
Family Physician: Karan Richards
Chief Complaint
-
Left-sided chest pressure
History of Present Illness
54-year-old female from [facility] complaining of left-sided chest pressure over her breast and lateral rib persistent since this morning. She was sent to ER for evaluation where she was found to have a Moderate loculated left pleural
effusion that has progressed since 08/15/2024 chest x-ray. The Patient still has abdominal pain at multiple laparoscopic sites including left-sided drain and right sided ileostomy. She reports green formed to liquid drainage in her ileostomy
draining twice a day at the SNF facility. The patient denies dizziness, headache, fever, chills sore throat, palpitations, shortness of breath, cough, nausea, vomiting, diarrhea, urinary symptoms.
She had a recent admission 07/26/24- 08/26/24 secondary to Sepsis/ pneumoperitoneum and on 08/05/24 requiring total abdominal colectomy with end ileostomy complicated by postop, multiple abdominal abscess. Requiring JAXSON drain OR cultures noted
(MSSA, E. coli, Kleb pneumoniae, Strep) and abscess cultures (E. faecalis, E. coli, Kleb pneumoniae) ON 08/15/2024. During 08/15/24 surgery they also found a large degenerating fibroid requiring exploratory lap with total abdominal hysterectomy and
bilateral salpingo-oophorectomy. 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
The patient required TPN due to slow return of bowel function she was kept on antibiotics for sepsis due to intra-abdominal abscess with drain placement she is due to be on Augmentin with a stop date of September 04. Other past medical history
includes IBD on current Remicade, depression, insomnia, psoriasis, IBD
Medical History
Past Medical History
Past Medical History: Reports GERD and Other
Additional Past Medical History:
IBD on current Remicade
Depression
insomnia
psoriasis
08/05/24 sepsis with pneumoperitoneum, total abdominal colectomy with end ileostomy complicated by postop
08/15/2024 multiple abdominal abscess Requiring JAXSON drain OR cultures noted (MSSA, E. coli, Kleb pneumoniae, Strep) and abscess cultures (E. faecalis, E. coli, Kleb pneumoniae)
08/15/2024 large degenerating fibroid requiring exploratory lap with total abdominal hysterectomy and bilateral salpingo-oophorectomy
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
Past Surgical History: Reports Other
Additional Past Surgical History:
08/05/24 sepsis with pneumoperitoneum, total abdominal colectomy with end ileostomy complicated by postop
08/15/2024 multiple abdominal abscess Requiring JAXSON drain OR cultures noted (MSSA, E. coli, Kleb pneumoniae, Strep) and abscess cultures (E. faecalis, E. coli, Kleb pneumoniae)
08/15/2024 large degenerating fibroid requiring exploratory lap with total abdominal hysterectomy and bilateral salpingo-oophorectomy
Social History
Tobacco: Non-smoker
Alcohol: None
Drug: None
Personal: Single
Living: Alone
Employment: Not Employed
Family History
Family History: Not pertinent
Allergies / Home Medications
Allergies reflects when Allergies were last updated in [employer].
Home Medications with original date entered in [employer]
Allergy/Medication List:
Allergies
Allergy/AdvReac Type Severity Reaction Status Date / Time
Penicillins Allergy as child Verified 08/30/24 11:48
Home Medications
melatonin 5 mg tablet 5 mg PO HSPRN PRN insomnia 07/26/24
alprazolam 0.25 mg tablet 0.25 mg PO Q8HPRN PRN anxiety #4 tabs 08/26/24
amoxicillin 875 mg-potassium clavulanate 125 mg tablet 1 tab PO BID #18 tabs 08/26/24
pantoprazole 40 mg tablet,delayed release (Protonix) 40 mg PO BID #60 tabs 08/26/24
bisacodyl 10 mg rectal suppository (Dulcolax (bisacodyl)) 10 mg WA DAILYPRN PRN if mom is ineffective after 24hrs 08/30/24
calcium carbonate (Oyster Shell Calcium) 500 mg PO DAILY 08/30/24
magnesium hydroxide 400 mg/5 mL oral suspension (Milk of Magnesia) 30 ml PO DAILYPRN PRN if no bm x 3 days 08/30/24
oxycodone 15 mg tablet 15 mg PO Q6HPRN PRN severe pain 08/30/24
sertraline 50 mg tablet 75 mg PO DAILY 08/30/24
sodium phosphates 19 gram-7 gram/118 mL enema (Fleet Enema) 118 ml WA DAILYPRN PRN if dulcolax is ineffective after 24hrs 08/30/24
Review of Systems
-
History Source: Patient
A 12 point ROS was completed and negative except as noted: Yes
Constitutional: Denies Fever, Fatigue or Chills
EENT: Denies Sore Throat or Runny Nose
Respiratory: Reports Trouble Breathing (Shortness of breath); Denies Cough
Cardiac: Reports Chest Pain (Left-sided chest pressure to left lateral abdomen); Denies Diaphoresis or Palpitations
Abdomen/GI: Reports Other (Ostomy green in color with formed stool and green liquid); Denies Abdominal Pain, Nausea, Vomiting or Diarrhea
: Reports Other; Denies Dysuria, Frequency, Flank Pain, Incontinence, Difficulty Voiding, Urgency or Bleeding
Musculoskeletal: Denies Joint Pain or Edema
Skin: Reports Other (Multiple laparoscopic sites to abdomen with Dermabond still present no surrounding erythema or drainage. Left-sided JAXSON drain scant amount cloudy white in color); Denies Itching or Rash
Neurological: Reports Weakness (Generalized secondary to prolonged hospital stay x 1 month in bed); Denies Dizzy or Headache
Endocrine: Reports No Symptoms
Hematologic/Lymphatic: Reports No Symptoms
Psych: Reports Calm
Physical Exam
Vital Signs
Vital Signs
Temp Pulse Resp BP Pulse Ox
99.8 F 98 20 122/90 93
08/30/24 11:37 08/30/24 11:37 08/30/24 11:37 08/30/24 11:37 08/30/24 11:37
Physical Exam
General: Pain; No Fever or Chills
HEENT: NormoCephalic, Anicteric, PERRLA, Oso Conjunctivae and No Ptosis
Respiratory: Clear; No Wheezes, Rales or Rhonchi
Cardiac: S1/S2 and Regular Rhythm; No Murmur, Rub, Gallop or Peripheral Edema
Breast: Deferred by me
GI: Soft, Non Distended, Normal Bowel Sounds and Tender (At will surgical sites only)
Rectal: Other (Right sided ileostomy bag with green form stool and green liquid)
Genito-urinary: Deferred by me
Musculoskeletal: No Clubbing, No Cyanosis and No Edema
Skin: Warm, Dry and Other (Multiple laparoscopic sites to abdomen with Dermabond still present no surrounding erythema or drainage. Left-sided JAXSON drain scant amount cloudy white in color); No Rash
Neuro: AO x 3, Nonfocal/grossly intact, Cranial Nerves Intact, No Sensory Deficits and Other (Generalized weakness secondary to prolonged hospital stay 1 month in bed); No Slurred Speech, Facial Droop or Tremors
Psych: Calm
Laboratory Results
-
08/30/24 11:46
08/30/24 11:46
Laboratory Results
Total Bilirubin 0.2 mg/dl (0.2-1.3) 08/30/24 11:46
AST 22 U/L (14-36) 08/30/24 11:46
ALT 16 U/L (0-35) 08/30/24 11:46
Alkaline Phosphatase 249 U/L (38-126) H 08/30/24 11:46
Troponin I < 0.012 ng/ml 08/30/24 11:46
Data Reviewed
-
CT Scan: Report Reviewed by me
Lab Data: Labs Reviewed by me
Impression/Plan
-
Impression/plan:
Admit to [facility]
#Left-sided chest pain 2/2 moderate loculated left-sided pleural effusion with progression
-Consult IR for thoracentesis with fluid analysis
-Monitor pulse oximetry
Consult pulm
CT PE study: No evidence of PE
1. Moderate loculated left pleural effusion. Progressed since 08/15/2024
2. Mild left lower lobe consolidation probably atelectasis. Developing pneumonia not excluded
3. Findings consistent prior benign granulomas disease
CXR: Moderate left-sided pleural effusion with associated compressive atelectasis. Patchy opacities within the right lower lobe favoring atelectasis
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
- Oncology was consulted, no adjuvant therapy at this time --
-patient was given instructions to follow-up with Dr. Mandel of medical oncology regarding her carcinoid.
#Recent Admission 07/26/24-08/26/24 -S/P Sepsis with intra-abdominal abscess, pneumoperitoneum on 07/2024 requiring total abdominal colectomy with end ileostomy
#Pneumoperitoneum S/p - underwent total abdominal colectomy with end ileostomy 08/05.
-Monitor output from ileostomy right lower quadrant
- Low Residue diet
-Continue pain control
#Intra abdominal drain ( Drain placed by IR on 08/15). for MULTIPLE SMALL ABDOMINAL ABCESSES
- Largest is left upper quadrant measuring up to 4.7 cm in diameter. Small collection at the ostomy site measures up to 3.9 cm in diameter.
OR cultures noted (MSSA, E. coli, Kleb pneumoniae, Strep) and abscess cultures (E. faecalis, E. coli, Kleb pneumoniae)
-- JAXSON drain -monitor output
-Patient to be on Augmentin with a stop date of September 04, 2024
#IBS-with recent flare. Given dose of Remicade in [facility] late June, discharged with prescription for mesalamine that she did not fill, and Steroid taper.
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
-Continue oxycodone 15 mg every 6 hours as needed severe pain
#Large degenerating fibroid 08/05/24
- Required an exploratory lap with total abdominal hysterectomy and bilateral salpingo-oophorectomy.
-Follow-up with urogynecology outpatient (colorectal surgery discussed this with Dr. Dickson of outpatient urogynecology)
#Recent hyponatremia - RESOLVED during hospitalization
NA 140
#Acute/chronic normocytic anemia due to GI blood loss/surgical blood loss
Status post multiple blood transfusions during recent admission
-Hgb 10.7
#Depression
-Zoloft increased by psychiatry
#Had hives rash from abdomen to chest to left neck/shoulder left arm -- IMPROVED OF 08/23/24 and 08/24/24 --no evidence of rash on exam today 08/30/2024
-Benadryl as needed she was seen by ID recent admission
DVT prophylaxis
Subcu Lovenox
Full code
--- NOTE | 2024-08-30 15:18 | CHAP ---
Addendum entered by Delfin Kearns 08/30/24 15:50:
Brought a prayer blanket for Kacey, which was gratefully received. Assurance of our on-going availability given.
Original Note:
Kacey was gracious -shared that this situation was unexpected. Family is in [place], a couple of hours away. She welcomed Hinduism prayer. Emotional and spiritual support provided.
--- NOTE | 2024-08-30 16:03 | W.PN.UPDATE ---
Update Note
Progress Note Update
This is an addendum to the H&P written by Loulou Franco on 08/30/2024.� Patient seen and examined independently with PBX INSPECTOR.
54-year-old female past medical history of recent admission from 07/26 to 08/26 for IBD flare treated medically initially with subsequent total abdominal colectomy and end ileostomy for pneumoperitoneum.� She also underwent concurrent total
abdominal hysterectomy and bilateral salpingo-oophorectomy by gynecology for large fibroid.
She had abdominal abscesses discovered after an drain was placed.
She had acute blood loss anemia after surgery.� She also had low-grade carcinoid of the ileum discovered during this admission.
She presents today with chest discomfort and shortness of breath.� CT chest shows moderate loculated pleural effusion on the left.� Clinically no evidence of pneumonia.� IR consulted for thoracentesis.� Pulmonology consulted.
[2024-08-30] MEDS: ROXICODONE 15 MG PO (18:36)
[2024-08-30] MEDS: LOVENOX 40 MG SC (20:10)
[2024-08-30] MEDS: TYLENOL 650 MG PO (20:10)
[2024-08-30] MEDS: PROTONIX 40 MG PO (20:11)
[2024-08-30] MEDS: AUGMENTIN 875 MG/125 MG 1 TABLET PO (20:11)
[2024-08-30 22:27] LABS: LDH 231 U/L (120-246)
[2024-08-31] MEDS: ROXICODONE 15 MG PO ×3 (02:28→17:50)
[2024-08-31 06:00] VITALS: BMI 19.7
[2024-08-31 07:20] VITALS: BP 108/76
[2024-08-31 07:27] LABS: ALT (SGPT) 14 U/L (0-35); AST (SGOT) 19 U/L (14-36); Albumin 2.9 g/dl (3.5-5.0); Alkaline Phosphatase 221 U/L (38-126); Blood Urea Nitrogen 5 mg/dl (7-17); Calcium 8.8 mg/dl (8.4-10.2); Carbon Dioxide 27 mmol/L (22-30); Chloride 104 mmol/L (98-107); Estimated Creatinine Clearance 96 ml/min; Glucose 91 mg/dl (70-99); Sodium 140 mmol/L (135-145); Total Bilirubin 0.2 mg/dl (0.2-1.3); Total Protein 5.7 g/dl (6.3-8.2); eGFR > 60.00
[2024-08-31 08:13] LABS: % Basophils 1.3 % (0-2); % Eosinophils 5.2 % (0-6); % Immature Granulocytes 0.6 % (0-0.5); % Monocytes 8.5 % (1.7-9.3); % Neutrophils 47.4 % (42.2-75.2); Absolute Basophils 0.1 10^3/uL (0-0.2); Absolute Eosinophils 0.3 10^3/uL (0-0.7); Absolute Monocytes 0.5 10^3/uL (0.1-0.6); Absolute Neutrophils 2.6 10^3/uL (1.4-6.5); Hematocrit 34.5 % (37.0-47.0); Hemoglobin 10.5 g/dL (12.0-16.0); Mean Corp Hgb Conc. 30.4 g/dL (33.0-37.0); Mean Corpuscular Hgb 28.2 pg (27.0-31.0); Mean Corpuscular Volume 92.7 fL (81.0-99.0); Mean Platelet Volume 8.8 fL (7.4-10.4); Platelet Count 652 10^3/uL (130-400); Red Blood Cell Count 3.72 10^6/uL (4.20-5.40); Red Cell Dist. Width 16.8 % (11.5-14.5); White Blood Cell Count 5.4 10^3/uL (4.8-10.8)
[2024-08-31] MEDS: OSCAL CAL 500 500 MG PO (08:13)
[2024-08-31] MEDS: PROTONIX 40 MG PO ×2 (08:13→20:22)
[2024-08-31] MEDS: AUGMENTIN 875 MG/125 MG 1 TABLET PO ×2 (08:13→20:22)
[2024-08-31 08:14] LABS: Nucleated Red Blood Cells % 0 %
[2024-08-31] MEDS: ZOLOFT 75 MG PO (08:14)
--- NOTE | 2024-08-31 09:15 | W.PN.HOSP.TC ---
Today's Communication/Plan
-
Consult pulmonary
IR consult for thoracentesis
Assessment / Plan
Assessment / Plan
Gen-AAOx3, NAD
HEENT-NC, AT, anicteric, clear oral mm
Neck-supple
CV-reg, no M, +S1/S2
Lungs-clear B/L, decreased breath sounds left base
Abd-soft, NT, ND
Ext-no edema
Musculoskeletal-no cyanosis, clubbing
Skin-warm and dry
Neuro-grossly non-focal
Psych-calm, cooperative
Loculated left-sided pleural effusion -suspect sympathetic effusion related to intra-abdominal abscesses noted during last hospitalization. Unclear if effusion infected. Await thoracentesis. Consult IR, pulmonary. Does not look septic
clinically. Not requiring oxygen.
Intra-abdominal abscess -recently hospitalized for IBD flare. Complicated stay requiring colectomy and end ileostomy 08/05. Also required hysterectomy for large fibroid. Drain remains in place, monitor output.
Discharged 09/05 on Augmentin, end date 09/04.
Inflammatory bowel disease -follow-up with GI after discharge.
Low-grade carcinoid of the ileum -follow-up with oncology after discharge.
Normocytic anemia -hemoglobin improved compared to last week. Monitor for now. Etiology is likely multifactorial and due to prolonged hospitalization, blood loss, etc. Baseline hemoglobin unknown as she was admitted in early July with
hemoglobin of 8.1.
Depression -continue sertraline.
Full code
Anticipated Discharge: > 48 hours
Subjective/Interval History
-
Date of Service: August 31, 2024
Patient seen and examined. Denies shortness of breath. Mild cough. Mild left-sided chest pressure.
Objective Data
-
Labs:
Laboratory Results
08/31/24
06:06
WBC 5.4
Hgb 10.5 L
Hct 34.5 L
Plt Count 652 H
Sodium 140
Potassium 4.0
Chloride 104
Carbon Dioxide 27
BUN 5 L
Creatinine 0.5 L
Glucose 91
Calcium 8.8
Total Bilirubin 0.2
AST 19
ALT 14
Alkaline Phosphatase 221 H
Vital Signs:
Vital Signs
Temp Pulse Resp BP Pulse Ox
98.5 F 83 16 108/76 94
08/31/24 07:20 08/31/24 07:20 08/31/24 07:20 08/31/24 07:20 08/31/24 07:20
I&O
08/30/24 08/31/24 09/01/24
06:59 06:59 06:59
Output Total 200 / 200
Balance -200 / -200
Review of Systems
-
History Source: Patient
All other systems: Reviewed and negative
--- NOTE | 2024-08-31 09:44 | CON.PUL ---
Consultation
Consultation Request
Date/Time Consultation Requested: 08/31/2024913
Date/Time Consultation Performed: 08/31/2024942
Requesting Provider: Dr. Zhao
Performing Provider: Dr. Rojas
Reason for Consultation: Left sided loculated pleural effusions
Medical History
-
Chief Complaint: Chest pain + shortness of breath
History of Present Illness:
54-year-old female with a past medical history of inflammatory bowel disease with suspected ulcerative colitis, depression, and recent total abdominal hysterectomy/bilateral salpingo-oophorectomy on 08/05/2024 due to perforated viscus with
peritonitis and enlarged uterus with calcified leiomyoma who presents with chest pain and shortness of breath. She was given ASA 324 mg prior to arriving here to the [facility]. She continues to have abdominal pain at prior laparoscopic sites.
In the ER she was afebrile to 99.8 �F, pulse rate 97, breathing at 25 breaths/minute, BP 122/90 and saturating 91% on room air. Initial labs showed WBC WNL at 9.2, Hb 10.7, platelets 749, and troponin negative at <0.012. Initial CXR showed
moderate left-sided pleural effusion with right lower lobe patchy opacities likely atelectasis. Subsequent CTA chest was negative for an acute PE and it showed moderate loculated left pleural effusion with a mild left lower lobe consolidation. She
was given Toradol 50 mg in the ER and then admitted to med-surg under the hospitalist with pulmonary consulted for additional management/recommendations.
When I saw the patient she was resting in bed, still endorsing abdominal discomfort, and having chest heaviness/pressure with shortness of breath. She is currently on room air saturating 95%. She has no cough but she says it is difficult to speak
as it hurts her chest and makes her more short of breath. She currently denies headache, nausea, vomiting, fevers or chills.
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
on pathological segmental resection of terminal ileum/colon
PSHx: Exploratory laparotomy with total abdominal hysterectomy/bilateral salpingo-oophorectomy (08/05/2024), ileostomy
Past Medical History
Past Medical History: Other (Above as per HPI)
Past Surgical History: Other (Above as per HPI)
Social History
Tobacco: Non-smoker
Alcohol: None
Drug: None
Personal: Single
Living: Alone
Employment: Not Employed
Family History
Family History: Reviewed & Not Pertinent
Allergies / Home Medications
Allergies
Allergy/AdvReac Type Severity Reaction Status Date / Time
Penicillins Allergy as child Verified 08/30/24 11:48
Home Medications
�Medication �Instructions �Recorded �Confirmed �Last Taken �Type
melatonin 5 mg tablet 5 mg PO HSPRN PRN insomnia 07/26/24 08/30/24 Unknown History
alprazolam 0.25 mg tablet 0.25 mg PO Q8HPRN PRN anxiety #4 08/26/24 08/30/24 Unknown Rx
tabs
amoxicillin 875 mg-potassium 1 tab PO BID #18 tabs 08/26/24 08/30/24 Unknown Rx
clavulanate 125 mg tablet
pantoprazole 40 mg tablet,delayed 40 mg PO BID #60 tabs 08/26/24 08/30/24 Unknown Rx
release (Protonix)
bisacodyl 10 mg rectal suppository 10 mg SD DAILYPRN PRN if mom is 08/30/24 08/30/24 Unknown History
(Dulcolax (bisacodyl)) ineffective after 24hrs
calcium carbonate (Oyster Shell 500 mg PO DAILY 08/30/24 08/30/24 Unknown History
Calcium)
magnesium hydroxide 400 mg/5 mL 30 ml PO DAILYPRN PRN if no bm x 3 08/30/24 08/30/24 Unknown History
oral suspension (Milk of Magnesia) days
oxycodone 15 mg tablet 15 mg PO Q6HPRN PRN severe pain 08/30/24 08/30/24 Unknown History
sertraline 50 mg tablet 75 mg PO DAILY 08/30/24 08/30/24 Unknown History
sodium phosphates 19 gram-7 118 ml SD DAILYPRN PRN if dulcolax 08/30/24 08/30/24 Unknown History
gram/118 mL enema (Fleet Enema) is ineffective after 24hrs
Review of Systems
-
History Source: Patient
All other systems: Negative unless noted
Vitals / Labs / Diagnostic Testing
Vital Signs
Temp Pulse Resp BP Pulse Ox
98.5 F 83 16 108/76 94
08/31/24 07:20 08/31/24 07:20 08/31/24 07:20 08/31/24 07:20 08/31/24 07:20
Lab Data
08/31/24 06:06
08/31/24 06:06
Diagnostic Testing:
Physical Exam
-
HEENT: Normocephalic and Anicteric
Cardiovascular: S1/S2 and Peripheral Edema (negative)
Respiratory: Wheeze (negative), Rales (negative), Rhonchi (negative), Non-Labored Respirations and Other (Diminished breath sounds at left base)
GI: Soft, Non Distended, Tender (Mild tenderness to palpation diffusely on abdomen), Normal Bowel Sounds and Other (Ileostomy in place with liquid brown stool seen)
Neurology: AO x 3 and Tremors (negative)
Skin: Warm and Dry
General: Respiratory Distress (negative), Pain (abdomen), Chills (negative) and Sweats (negative)
Assessment
-
Assessment: 54-year-old female with a past medical history of inflammatory bowel disease with suspected ulcerative colitis, depression, and recent total abdominal hysterectomy/bilateral salpingo-oophorectomy on 08/05/2024 due to perforated viscus
with peritonitis and enlarged uterus with calcified leiomyoma who presents with chest pain and shortness of breath. She was given ASA 324 mg prior to arriving here to the [facility]. She continues to have abdominal pain at prior laparoscopic
sites. In the ER she was afebrile to 99.8 �F, pulse rate 97, breathing at 25 breaths/minute, BP 122/90 and saturating 91% on room air. Initial labs showed WBC WNL at 9.2, Hb 10.7, platelets 749, and troponin negative at <0.012. Initial CXR showed
moderate left-sided pleural effusion with right lower lobe patchy opacities likely atelectasis. Subsequent CTA chest was negative for an acute PE and it showed moderate loculated left pleural effusion with a mild left lower lobe consolidation. She
was given Toradol 50 mg in the ER and then admitted to med-surg under the hospitalist with pulmonary consulted for additional management/recommendations.
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
Impression:
#Multiloculated pleural effusions on left hemithorax
#Perforated viscous with secondary peritonitis s/p recent MP/BSO on 08/05/2024 with incidentally discovered degenerating fibroid
#Chronic anemia
#Thrombocytosis likely reactive due to above
#Chronically elevated ALP
#Hx of IBD/UC with diffuse colitis seen on CT A/P from 07/26/2024 currently on Remicade
#Depression
#History of insomnia
Plan:
- The patient currently has a left-sided loculated pleural effusion predominantly in the left lower lobe which is seems to be continuous with fluid which courses up to the left upper lobe
- She did have a small left-sided pleural effusion seen on the CT abdomen/pelvis from 07/26/2024 when she was diagnosed with diffuse colitis and then later found to have a perforated viscus with pneumoperitoneum + secondary peritonitis requiring
ex-lap on 08/05/2024 --> she was on ABx rec'd by ID as OR cultures were positive for MSSA, E. coli, strep + Klebsiella pneumonia and her hospital course at that time was complicated by intra-abdominal abscesses requiring percutaneous drainage with
abscess culture positive for Enterococcus faecalis, E. coli + Klebsiella pneumoniae --> continue with Augmentin that she was supposed to be on until 09/04/2024
- Her last CT abdomen/pelvis on 08/15/2024 showed a small sized left pleural effusion with a trace size right-sided pleural effusion
- It is fair to say that her intra-abdominal pathology that she had last month is most likely contributing to this left-sided pleural effusion which is now loculated
- I reviewed her CT chest findings from 08/30/2024 with interventional radiology today with Dr. Mathias, and this likely LLL-effusion should be drained with a chest tube
- Will plan to insert chest tube tomorrow and will need to send off cultures, fluid studies and cytopathology
- Pain control
- Maintain SpO2 >90-94% with supplemental O2 as needed
- Incentive spirometer encouraged 10x per hour for at least 4 hrs a day
- Replete electrolytes with K>4, Mg>2
- Maintain euglycemia with goal BG >100 and <180
- Outpatient follow up with Oncology for the well-differentiated neuroendocrine tumor seen on pathology from her terminal ileum/colon segmental resection from 08/05/2024
- prn nebulized bronchodilators - not currently bronchospastic
- DVT ppx: LMWH
Pulmonary service will continue to follow along.
Data:
CTA Chest 08/30/2024:
No evidence of pulmonary embolus.
Moderate loculated left pleural effusion. Progressed
Mild left lower lobe consolidation probably atelectasis. Developing pneumonia not excluded. Stable
Findings consistent prior benign granulomas disease. Stable
Total time spent today was 58 minutes for this encounter. Time includes reviewing laboratory test/imaging results, reviewing pertinent medical records, obtaining and reviewing medical history, performing an appropriate exam, ordering medications,
tests and procedures. Time also includes documentation of this encounter, coordinating patient care and communicating with other healthcare professionals. Total time does not include separately billed tests performed on this date of service.
[2024-08-31 10:04] VITALS: BP 112/80; PULSE 94; O2SAT 95
[2024-08-31 10:12] VITALS: BP 112/80; PULSE 94; O2SAT 95
[2024-08-31] MEDS: TYLENOL 650 MG PO ×2 (10:22→20:22)
[2024-08-31] MEDS: DIFLUCAN 150 MG PO (13:35)
[2024-08-31] MEDS: XANAX 0.25 MG PO (13:38)
--- NOTE | 2024-08-31 14:10 | CHAP ---
Kacey was sitting in the chair in good spirits, until she shared that she'll be having surgery. She became tearful then. We prayed together that God would watch over her and keep her safe. Emotional and spiritual support provided.
--- NOTE | 2024-08-31 14:31 | CM ---
Met with patient at bedside; initial assessment completed
Admitted from [facility]
Reported that she needs assistance with personal care; ambulates with a rolling walker
Plan: Will return to [facility] when medically stable for discharge
[2024-08-31 15:36] VITALS: BP 104/73
[2024-08-31] MEDS: LOVENOX 40 MG SC (17:47)
[2024-08-31 23:25] VITALS: BP 115/74
[2024-09-01] VITALS (7 sets, daily range): BP systolic 81–115; BP diastolic 66–87; BMI 19.8
[2024-09-01] MEDS: ROXICODONE 15 MG PO ×3 (01:25→20:34)
--- NOTE | 2024-09-01 05:40 | PTCARENOTE ---
Pt wants to sleep, was encouraged to get oob to void, pt getting angry on staff, saying she prefers to sleep & its too early for her, pt let us weigh her this morning states she needs to sleep more, pt refused for bladder scan, refused to change her
depends which she has from home, pt continent of bladder & states she voided yesterday before she went to sleep.Denies of any other complaints,wants to be left alone to sleep.
[2024-09-01 08:15] LABS: % Basophils 0.9 % (0-2); % Eosinophils 7.2 % (0-6); % Immature Granulocytes 0.7 % (0-0.5); % Lymphocytes 44.3 % (20.5-51.1); % Monocytes 9.4 % (1.7-9.3); % Neutrophils 37.5 % (42.2-75.2); Absolute Basophils 0.1 10^3/uL (0-0.2); Absolute Eosinophils 0.4 10^3/uL (0-0.7); Absolute Lymphocytes 2.6 10^3/uL (1.2-3.4); Absolute Monocytes 0.6 10^3/uL (0.1-0.6); Absolute Neutrophils 2.2 10^3/uL (1.4-6.5); Hematocrit 33.1 % (37.0-47.0); Hemoglobin 10.1 g/dL (12.0-16.0); Mean Corp Hgb Conc. 30.5 g/dL (33.0-37.0); Mean Corpuscular Hgb 28.5 pg (27.0-31.0); Mean Corpuscular Volume 93.2 fL (81.0-99.0); Mean Platelet Volume 8.9 fL (7.4-10.4); Nucleated Red Blood Cells % 0 %; Platelet Count 539 10^3/uL (130-400); Red Blood Cell Count 3.55 10^6/uL (4.20-5.40); Red Cell Dist. Width 16.5 % (11.5-14.5); White Blood Cell Count 5.9 10^3/uL (4.8-10.8)
[2024-09-01 09:20] LABS: ALT (SGPT) 13 U/L (0-35); AST (SGOT) 18 U/L (14-36); Albumin 2.7 g/dl (3.5-5.0); Alkaline Phosphatase 186 U/L (38-126); Blood Urea Nitrogen 6 mg/dl (7-17); Calcium 8.7 mg/dl (8.4-10.2); Carbon Dioxide 23 mmol/L (22-30); Chloride 106 mmol/L (98-107); Estimated Creatinine Clearance 97 ml/min; Glucose 85 mg/dl (70-99); Sodium 139 mmol/L (135-145); Total Bilirubin 0.1 mg/dl (0.2-1.3); Total Protein 5.5 g/dl (6.3-8.2); eGFR > 60.00
--- NOTE | 2024-09-01 09:26 | W.PN.PUL3 ---
Today's Communication / Plan
-
s/p chest tube, prelim cell count reviewed suggesting exudate
Continue abx for now
Continue following chest tube output, culture and cyto pending
Pain control
Follow serial imaging daily
Assessment
-
54-year-old female with a past medical history of inflammatory bowel disease with suspected ulcerative colitis, depression, and recent total abdominal hysterectomy/bilateral salpingo-oophorectomy on 08/05/2024 due to perforated viscus with
peritonitis and enlarged uterus with calcified leiomyoma who presents with chest pain and shortness of breath. She was given ASA 324 mg prior to arriving here to the [place] [facility]. She continues to have abdominal pain at prior laparoscopic sites.
In the ER she was afebrile to 99.8 �F, pulse rate 97, breathing at 25 breaths/minute, BP 122/90 and saturating 91% on room air. Initial labs showed WBC WNL at 9.2, Hb 10.7, platelets 749, and troponin negative at <0.012. Initial CXR showed
moderate left-sided pleural effusion with right lower lobe patchy opacities likely atelectasis. Subsequent CTA chest was negative for an acute PE and it showed moderate loculated left pleural effusion with a mild left lower lobe consolidation. She
was given Toradol 50 mg in the ER and then admitted to med-surg under the hospitalist with pulmonary consulted for additional management/recommendations.
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
Impression:
#Multiloculated pleural effusions on left hemithorax
#Perforated viscous with secondary peritonitis s/p recent MP/BSO on 08/05/2024 with incidentally discovered degenerating fibroid
#Chronic anemia
#Thrombocytosis likely reactive due to above
#Chronically elevated ALP
#Hx of IBD/UC with diffuse colitis seen on CT A/P from 07/26/2024 currently on Remicade
#Depression
#History of insomnia
Plan:
Currently stable on RA, no new complaints
SOB is not improving post chest tube
The patient currently has a left-sided loculated pleural effusion predominantly in the L base
She did have a small left-sided pleural effusion seen on the CT abdomen/pelvis from 07/26/2024 when she was diagnosed with diffuse colitis and then later found to have a perforated viscus with pneumoperitoneum + secondary peritonitis requiring
ex-lap on 08/05/2024 --> she was on ABx rec'd by ID as OR cultures were positive for MSSA, E. coli, strep + Klebsiella pneumonia and her hospital course at that time was complicated by intra-abdominal abscesses requiring percutaneous drainage with
abscess culture positive for Enterococcus faecalis, E. coli + Klebsiella pneumoniae --> continue with Augmentin that she was supposed to be on until 09/04/[address] abdomen/pelvis on 08/15/2024 showed a small sized left pleural effusion with a trace size right-sided pleural effusion
Possible intra-abdominal pathology that she had last month contributing to this left-sided pleural effusion which is now loculated
I reviewed her CT chest findings from 08/30/2024 with interventional radiology today with Dr. Mathias, and this likely LLL-effusion should be drained with a chest tube
s/p chest tube placement by IR 09/01/24
Fluid studies reviewed: pH 7.44 - glu 84 - tp 3.5 - LDH 299 -- indicating exudate
serum LDH 231 - TP 5.5
Parapneumonic fluid most likely, culture and cyto pending
She is maintained on abx
Follow fluid output for now
Follow daily CXRs
Pain control, reviewed with nursing
Replete electrolytes with K>4, Mg>2
Maintain euglycemia with goal BG >100 and <180
Outpatient follow up with Oncology for the well-differentiated neuroendocrine tumor seen on pathology from her terminal ileum/colon segmental resection from 08/05/2024
DVT ppx: LMWH
Pulmonary service will continue to follow along.
Data:
CXR 08/30/24- Moderate left-sided pleural effusion with associated compressive atelectasis. There are patchy opacities within the right lower lung, favoring atelectasis.
08/12/24- 1. Postoperative chest.
2. Hazy left lung opacity suggesting layering pleural fluid.
CTA Chest 08/30/2024:No evidence of pulmonary embolus. Moderate loculated left pleural effusion. Progressed. Mild left lower lobe consolidation probably atelectasis. Developing pneumonia not excluded. Stable. Findings consistent prior benign
granulomas disease. Stable
-----
Total time spent today was 52 minutes for this encounter. Time includes reviewing laboratory test/imaging results, reviewing pertinent medical records, obtaining and reviewing medical history, performing an appropriate exam, ordering medications,
tests and procedures. Time also includes documentation of this encounter, coordinating patient care and communicating with other healthcare professionals. Total time does not include separately billed tests performed on this date of service.
Subjective Data
-
Date of Service:
Date of Service: September 01, 2024
Chief Complaint: Pulmonary Follow Up
Subjective:
No acute events ON, remains stable on RA
s/p chest tube, pain noted at insertion site
Objective Data
Data Reviewed
Vital Signs / I&O / Oxygen:
Vital Signs
Temp Pulse Resp BP Pulse Ox
98.9 F 81 17 110/85 98
09/01/24 09:21 09/01/24 09:21 09/01/24 09:21 09/01/24 09:21 09/01/24 09:21
Intake and Output
08/31/24 09/01/24 09/02/24
06:59 06:59 06:59
Intake Total 240 / 240
Output Total 200 / 200 135 / 135
Balance -200 / -200 105 / 105
SaO2 98
Physical Exam
General: Comfortable, Pain and Other (NAD)
HEENT: Normocephalic, Anicteric and Moist Mucous Membranes
Cardiovascular: S1-S2 and Regular Rhythm
Respiratory: Clear and Non-Labored Respirations
GI: Soft, Non Distended, Non Tender and Other (ostomy in place)
Neurology: Awake, Alert, Oriented and No Motor Deficits
Skin: Warm, Dry and Good Color
Labs/Micro/Reports
Lab Data
09/01/24 07:30
09/01/24 07:30
Microbiology
08/30/24 19:56 Nose MRSA Screen - Final
No Methicillin Resistant Staphylococcus aureus isolated.
--- NOTE | 2024-09-01 09:30 | WOUNDNOTE ---
WON RN NOTE: Patient admitted with pleural effusion, s/p chest tube placed. Patient known to service for Ileostomy needs, last seen 08/25/24. Per nursing appliance changed yesterday, no reported issues. Brought supplies to bedside, was using 2 3/4'
convex Pete wafer with ivanna seal and pouch #[id number]. Patient off floor for testing and nurse reports patient very agitated today, best to follow up tomorrow as needed. Sacrum reported as MASD. Miconazole powder ordered PRN. Will update care plan
and nursing can change appliance next on or Sunday, ostomy nurse available if needed. for additional convex wafers contact wound care nurse.
[2024-09-01 12:33] LABS: Body Fluid pH 7.44
[2024-09-01 12:48] LABS: Body Fluid Amylase < 30 U/L; Body Fluid Glucose 84 mg/dl; Body Fluid LDH 299 U/L; Body Fluid Protein 3.5 g/dl; Body Fluid Triglycerides 50 mg/dl
[2024-09-01] MEDS: OSCAL CAL 500 500 MG PO (13:00)
[2024-09-01] MEDS: ZOLOFT 75 MG PO (13:00)
[2024-09-01] MEDS: TYLENOL 650 MG PO ×2 (13:01→17:45)
[2024-09-01] MEDS: XANAX 0.25 MG PO (13:01)
[2024-09-01] MEDS: AUGMENTIN 875 MG/125 MG 1 TABLET PO ×2 (13:01→20:00)
[2024-09-01] MEDS: PROTONIX 40 MG PO ×2 (13:02→20:00)
--- NOTE | 2024-09-01 13:04 | PTCARENOTE ---
Patient arrived to floor with L sided chest tube. Dressing CDI. Draining straw colored fluid, 275ml. No chest tube orders upon arrival to floor. Dr. Samano made aware.
[2024-09-01 13:42] LABS: Body Fluid Granulocytes 63 %; Body Fluid Lymphocytes 28 %; Body Fluid Macrophages 9 %
[2024-09-01 13:45] LABS: Body Fluid Second Tech RP
[2024-09-01] MEDS: LOVENOX 40 MG SC (17:46)
--- NOTE | 2024-09-01 20:12 | W.PN.HOSP.TC ---
Addendum entered and electronically signed by Dell Guzman MD 09/01/24 23:37:
Attending Addendum-
I saw and evaluated the patient. I reviewed the resident�s note and agree with findings and plan as documented in the resident�s note. Sub: complains of pain @ CT tube side. Denies SOB. feels fatigued. Full 12 point ROS reviewed and negative except
as documented Exam: Vitals reviewed in chart GEN-NAD heart RRR lungs decreased BS LLL CT in place draining yellow fluid abd soft + ileostomy incision CDI + JAXSON drain LE no edema
Plan:
#Loculated left-sided pleural effusion
-CT placed 09/01 by IR
-appreciate pulm input
-send fluid for analysis
-possibly reactive
#Neuroendocrine Tumor of the Ileum
- Oncology was consulted, no adjuvant therapy at this time
- patient was given instructions to follow-up with Dr. Mandel of medical oncology regarding her carcinoid.
# Recent admission for Sepsis with intra-abdominal abscess, pneumoperitoneum on 08/05 requiring total abdominal colectomy with end ileostomy
-Monitor output from ileostomy right lower quadrant
-Low Residue diet
-Continue pain control
#Abdominal Abscess
- Intra abdominal drain placed by IR on 08/15
- JAXSON drain -monitor output
- cont Augmentin->09/04
#IBS
- hold remicade
- Continue oxycodone 15 mg every 6 hours as needed severe pain
#Large degenerating fibroid
- Required an exploratory lap with total abdominal hysterectomy and bilateral salpingo-oophorectomy 08/05
- Follow-up with urogynecology outpatient
# GERD
- cont omeprazole
#Depression/Anxiety
- cont Zoloft
- cont prn ativan
DVT prophylaxis
Subcu Lovenox
Time spent coordinating care, review of plan of care with resident, personally reviewed records in EMR, med rec, consults, notes, labs, radiology, d/w nursing � 59 mins
Original Note:
Today's Communication/Plan
-
Follow-up with pulmonology
Give pain medication as needed
Continue antibiotics
Wait for pending cultures
Follow daily x-rays
Assessment / Plan
Assessment / Plan
Loculated pleural effusion:
-Shortness of breath not improving post chest tube today on 09/01/2024
-Left-sided loculated pleural effusion in the lower left base of the lung
-Fluid studies showed pH 7.44, glucose 84, LDH 299 serum LDH 231, TP 5.5 indicating exudate
-Pain control as needed
-Maintain oxygen saturation keep above 92%, patient is currently well on room air
-Daily chest x-rays to check for progression
-Pleural fluid culture still pending
-Continue current antibiotics
-Pulmonology is following
Inflammatory bowel disorder:
-Currently on Remicade
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
Carcinoma of the ileum:
-Has an outpatient appointment scheduled with oncology
Normocytic anemia:
� Monitor outpatient
Depression:
-Continue sertraline
Full code
Anticipated Discharge: 24 - 48 hours
Subjective/Interval History
-
Date of Service: September 01, 2024
54-year-old female from [facility], primary care physician is Dr. Richards. Admitted on 08/30 for left-sided chest discomfort and shortness of breath. CT scan shows moderate loculated left pleural effusion and is negative
for pulmonary embolism. States that is difficult to speak as chest hurts but denies any nausea, vomiting, fever, chills . pulmonology was consulted and placed a chest tube today. Patient has transition after a the chest tube from a n.p.o. to a
regular diet.
She has had recent admission from 07/26 to 08/26 for inflammatory bowel disease flare with total abdominal colectomy and end ileostomy for pneumoperitoneum complicated by postop multiple intra-abdominal abscesses with abscess culture positive for
Enterococcus faecalis, E. coli, Klebsiella pneumonia for which IR placed a drain on 08/15. On exploratory laparotomy they found 2 incidental findings which were a stage II carcinoid of the ileum and large fibroids.
She is on Augmentin till September 04 due to possible formation of sepsis due to intra-abdominal abscess.
Objective Data
-
Labs:
Laboratory Results
09/01/24
07:30
WBC 5.9
Hgb 10.1 L
Hct 33.1 L
Plt Count 539 H
Sodium 139
Potassium 4.0
Chloride 106
Carbon Dioxide 23
BUN 6 L
Creatinine 0.5 L
Glucose 85
Calcium 8.7
Total Bilirubin 0.1 L
AST 18
ALT 13
Alkaline Phosphatase 186 H
Vital Signs:
Vital Signs
Temp Pulse Resp BP Pulse Ox
99.4 F 85 18 115/78 96
09/01/24 15:22 09/01/24 15:22 09/01/24 15:22 09/01/24 15:22 09/01/24 15:22
I&O
08/31/24 09/01/24 09/02/24
06:59 06:59 06:59
Intake Total 240 / 240 420 / 420
Output Total 200 / 200 135 / 135 735 / 735
Balance -200 / -200 105 / 105 -315 / -315
Review of Systems
-
History Source: Patient
Constitutional: Denies Fever or No Appetite
Cardiac: Reports Chest Pain
Abdomen/GI: Reports Abdominal Pain; Denies Nausea, Vomiting or Diarrhea
Physical Exam
-
Respiratory: Other (Chest pain)
Cardiac: Regular Rhythm and S1/S2
GI: Ostomy
Skin: Warm and Dry
Data Reviewed
-
Medical Tests (Nuc Med, Echo etc): Image personally visualized and interpreted and Discussed with Physician
Labs: Labs Reviewed by me and Discussed with Physician
--- NOTE | 2024-09-02 06:12 | PTCARENOTE ---
Pt aaox3 able to make her needs known, on prn pain meds as needed. Pt non-complaint with nursing care at times.Refuses to turn,refusing to go to BR to void,refused assessment of sacral dressing states she needs to sleep.Pt angry on staff when trying
to empty her ileostomy & JAXSON drain. Chest tube continued to be monitored & suction connected. Plan of care continued on pt.
[2024-09-02 08:12] VITALS: BP 105/75
[2024-09-02] MEDS: ROXICODONE 15 MG PO ×3 (08:23→20:38)
[2024-09-02] MEDS: OSCAL CAL 500 500 MG PO (08:24)
[2024-09-02] MEDS: AUGMENTIN 875 MG/125 MG 1 TABLET PO ×2 (08:24→20:36)
[2024-09-02] MEDS: PROTONIX 40 MG PO ×2 (08:24→20:36)
[2024-09-02 08:25] LABS: % Basophils 0.9 % (0-2); % Eosinophils 6.1 % (0-6); % Immature Granulocytes 0.5 % (0-0.5); % Lymphocytes 44.2 % (20.5-51.1); % Neutrophils 41.3 % (42.2-75.2); Absolute Basophils 0.1 10^3/uL (0-0.2); Absolute Eosinophils 0.3 10^3/uL (0-0.7); Absolute Lymphocytes 2.5 10^3/uL (1.2-3.4); Absolute Monocytes 0.4 10^3/uL (0.1-0.6); Absolute Neutrophils 2.3 10^3/uL (1.4-6.5); Hematocrit 35.4 % (37.0-47.0); Hemoglobin 10.9 g/dL (12.0-16.0); Mean Corp Hgb Conc. 30.8 g/dL (33.0-37.0); Mean Corpuscular Hgb 28.5 pg (27.0-31.0); Mean Corpuscular Volume 92.7 fL (81.0-99.0); Mean Platelet Volume 9.2 fL (7.4-10.4); Nucleated Red Blood Cells % 0 %; Platelet Count 504 10^3/uL (130-400); Red Blood Cell Count 3.82 10^6/uL (4.20-5.40); Red Cell Dist. Width 16.4 % (11.5-14.5); White Blood Cell Count 5.6 10^3/uL (4.8-10.8)
[2024-09-02 08:58] LABS: ALT (SGPT) 14 U/L (0-35); AST (SGOT) 19 U/L (14-36); Albumin 2.7 g/dl (3.5-5.0); Alkaline Phosphatase 216 U/L (38-126); Blood Urea Nitrogen 5 mg/dl (7-17); Calcium 8.5 mg/dl (8.4-10.2); Carbon Dioxide 28 mmol/L (22-30); Chloride 105 mmol/L (98-107); Estimated Creatinine Clearance 97 ml/min; Glucose 92 mg/dl (70-99); Potassium 4.3 mmol/L (3.5-5.1); Sodium 142 mmol/L (135-145); Total Bilirubin 0.1 mg/dl (0.2-1.3); Total Protein 5.6 g/dl (6.3-8.2); eGFR > 60.00
--- NOTE | 2024-09-02 09:17 | W.PN.PUL3 ---
Today's Communication / Plan
-
Repeat CXR significantly improved, output about 380mL overnight
May consider lytic dosing with continued output monitoring
Pain control
Continue abx
Case discussed with IR
CT scan 08/30 reviewed, can re-scan in next 48-72 hours pending output progress
Assessment
-
54-year-old female with a past medical history of inflammatory bowel disease with suspected ulcerative colitis, depression, and recent total abdominal hysterectomy/bilateral salpingo-oophorectomy on 08/05/2024 due to perforated viscus with
peritonitis and enlarged uterus with calcified leiomyoma who presents with chest pain and shortness of breath. She was given ASA 324 mg prior to arriving here to the [place] [facility]. She continues to have abdominal pain at prior laparoscopic sites.
In the ER she was afebrile to 99.8 �F, pulse rate 97, breathing at 25 breaths/minute, BP 122/90 and saturating 91% on room air. Initial labs showed WBC WNL at 9.2, Hb 10.7, platelets 749, and troponin negative at <0.012. Initial CXR showed
moderate left-sided pleural effusion with right lower lobe patchy opacities likely atelectasis. Subsequent CTA chest was negative for an acute PE and it showed moderate loculated left pleural effusion with a mild left lower lobe consolidation. She
was given Toradol 50 mg in the ER and then admitted to med-surg under the hospitalist with pulmonary consulted for additional management/recommendations.
Chronic conditions [employer]: IBD on Remicade, depression, insomnia, psoriasis, history of sepsis due to perforated viscus with peritonitis s/p MP/BSO on 08/05/2024 with multiple intra-abdominal abscess requiring JAXSON drains and well-differentiated
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
Impression:
#Multiloculated pleural effusions on left hemithorax
#Perforated viscous with secondary peritonitis s/p recent MP/BSO on 08/05/2024 with incidentally discovered degenerating fibroid
#Chronic anemia
#Thrombocytosis likely reactive due to above
#Chronically elevated ALP
#Hx of IBD/UC with diffuse colitis seen on CT A/P from 07/26/2024 currently on Remicade
#Depression
#History of insomnia
Plan:
Currently stable on RA, no new complaints
SOB is not improving post chest tube
The patient currently has a left-sided loculated pleural effusion predominantly in the L base
She did have a small left-sided pleural effusion seen on the CT abdomen/pelvis from 07/26/2024 when she was diagnosed with diffuse colitis and then later found to have a perforated viscus with pneumoperitoneum + secondary peritonitis requiring
ex-lap on 08/05/2024 --> she was on ABx rec'd by ID as OR cultures were positive for MSSA, E. coli, strep + Klebsiella pneumonia and her hospital course at that time was complicated by intra-abdominal abscesses requiring percutaneous drainage with
abscess culture positive for Enterococcus faecalis, E. coli + Klebsiella pneumoniae --> continue with Augmentin that she was supposed to be on until 09/04/[address] abdomen/pelvis on 08/15/2024 showed a small sized left pleural effusion with a trace size right-sided pleural effusion
Possible intra-abdominal pathology that she had last month contributing to this left-sided pleural effusion which is now loculated
I reviewed her CT chest findings from 08/30/2024 with interventional radiology today with Dr. Mathias, and this likely LLL-effusion should be drained with a chest tube
s/p chest tube placement by IR 09/01/24
Repeat CXR 09/02/24 improved, may consider lytic dosing tonight and 24 hours observation post
Discussed case with IR
Fluid studies reviewed: pH 7.44 - glu 84 - tp 3.5 - LDH 299 -- indicating exudate
serum LDH 231 - TP 5.5
Parapneumonic fluid most likely, culture and cyto pending
She is maintained on abx
Follow fluid output for now
Follow daily CXRs
Pain control, reviewed with nursing
Replete electrolytes with K>4, Mg>2
Maintain euglycemia with goal BG >100 and <180
Outpatient follow up with Oncology for the well-differentiated neuroendocrine tumor seen on pathology from her terminal ileum/colon segmental resection from 08/05/2024
DVT ppx: LMWH
Pulmonary service will continue to follow along.
Data:
CXR 08/30/24- Moderate left-sided pleural effusion with associated compressive atelectasis. There are patchy opacities within the right lower lung, favoring atelectasis.
08/12/24- 1. Postoperative chest.
2. Hazy left lung opacity suggesting layering pleural fluid.
CTA Chest 08/30/2024:No evidence of pulmonary embolus. Moderate loculated left pleural effusion. Progressed. Mild left lower lobe consolidation probably atelectasis. Developing pneumonia not excluded. Stable. Findings consistent prior benign
granulomas disease. Stable
-----
Total time spent today was 51 minutes for this encounter. Time includes reviewing laboratory test/imaging results, reviewing pertinent medical records, obtaining and reviewing medical history, performing an appropriate exam, ordering medications,
tests and procedures. Time also includes documentation of this encounter, coordinating patient care and communicating with other healthcare professionals. Total time does not include separately billed tests performed on this date of service.
Subjective Data
-
Date of Service:
Date of Service: September 02, 2024
Chief Complaint: Pulmonary Follow Up
Subjective:
No new complaints, still with ongoing pain at site of insertion, rib pain
No events ON
Remains stable on RA
Significant output overnight
Objective Data
Data Reviewed
Vital Signs / I&O / Oxygen:
Vital Signs
Temp Pulse Resp BP Pulse Ox
97.8 F 80 18 105/75 97
09/02/24 08:12 09/02/24 08:12 09/02/24 08:12 09/02/24 08:12 09/02/24 08:12
Intake and Output
09/01/24 09/02/24 09/03/24
06:59 06:59 06:59
Intake Total 240 / 240 420 / 420
Output Total 135 / 135 1040 / 1040
Balance 105 / 105 -620 / -620
SaO2 97
Physical Exam
General: Comfortable, Pain and Other (NAD)
HEENT: Normocephalic, Anicteric and Moist Mucous Membranes
Cardiovascular: S1-S2 and Regular Rhythm
Respiratory: Clear, Non-Labored Respirations and Chest Tube
GI: Soft, Non Distended, Non Tender and Other (ostomy in place, JAXSON drain)
Neurology: Awake, Alert, Oriented and No Motor Deficits
Skin: Warm, Dry and Good Color
Labs/Micro/Reports
Lab Data
09/02/24 07:56
09/02/24 07:56
Microbiology
09/01/24 11:50 Pleural Fluid Body Fluid Culture - Preliminary
No Growth After 18-24 Hours
09/01/24 11:50 Pleural Fluid Gram Stain - Preliminary
09/01/24 11:50 Pleural Fluid Fungal Culture - Preliminary
Culture in progress.
Positive cultures are reported as soon as detected.
Final report to follow in four to five weeks.
08/30/24 19:56 Nose MRSA Screen - Final
No Methicillin Resistant Staphylococcus aureus isolated.
[2024-09-02] MEDS: TYLENOL 650 MG PO ×2 (10:28→16:35)
[2024-09-02] MEDS: ZOLOFT 75 MG PO (10:29)
[2024-09-02 12:07] LABS: LDH 167 U/L (120-246)
[2024-09-02 14:58] VITALS: BP 95/61; PULSE 93; O2SAT 96
[2024-09-02 15:47] VITALS: BP 99/64
--- NOTE | 2024-09-02 16:02 | W.PN.HOSP.TC ---
Addendum entered and electronically signed by Dell Guzman MD 09/02/24 23:19:
Attending Addendum-
I saw and evaluated the patient. I reviewed the resident�s note and agree with findings and plan as documented in the resident�s note. Sub: continues to complain of pain @ CT tube side. Denies SOB. feels fatigued. Full 12 point ROS reviewed and
negative except as documented Exam: Vitals reviewed in chart GEN-NAD heart RRR lungs decreased BS LLL CT in place abd soft + ileostomy incision CDI + JAXSON drain LE no edema
Plan:
#Loculated left-sided pleural effusion
- exudate
- CT placed 09/01 by IR monitor output @ 380mls
- appreciate pulm input
- for repeat CT in 24 to 48 hours
- possible lytic dosing
#Neuroendocrine Tumor of the Ileum
- Oncology was consulted, no adjuvant therapy at this time
- patient was given instructions to follow-up with Dr. Mandel of medical oncology regarding her carcinoid.
# Recent admission for Sepsis with intra-abdominal abscess, pneumoperitoneum on 08/05 requiring total abdominal colectomy with end ileostomy
-Monitor output from ileostomy right lower quadrant
-Low Residue diet
-Continue pain control
#Abdominal Abscess
- Intra abdominal drain placed by IR on 08/15
- JAXSON drain -monitor output
- cont Augmentin->09/04
#IBS
- hold remicade
- Continue oxycodone 15 mg every 6 hours as needed severe pain
#Large degenerating fibroid
- Required an exploratory lap with total abdominal hysterectomy and bilateral salpingo-oophorectomy 08/05
- Follow-up with urogynecology outpatient
# GERD
- cont omeprazole
#Depression/Anxiety
- cont Zoloft
- cont prn ativan
DVT prophylaxis
Subcu Lovenox
Dispo Eventual DC back to [facility] when able
Time spent coordinating care, review of plan of care with resident, personally reviewed records in EMR, med rec, consults, notes, labs, radiology, d/w nursing, pulm � 55 mins
Original Note:
Today's Communication/Plan
-
- Follow up with pulmonology
Assessment / Plan
Assessment / Plan
Loculated pleural effusion:
- Repeat chest xray showed significant improvement in size of the pleural effusion per pulmonary team, would like to have CT scan of her done in 48-72 hours to check progression of plueral effusion (09/02)
-Shortness of breath not improving post chest tube on 09/01/2024
-Left-sided loculated pleural effusion in the lower left base of the lung
-Fluid studies showed pH 7.44, glucose 84, LDH 299 serum LDH 231, TP 5.5 indicating exudate
-Pain control as needed
-Maintain oxygen saturation keep above 92%, patient is currently well on room air
-Daily chest x-rays to check for progression
-Pleural fluid cultures/cytology still pending
-Continue current antibiotics
-Pulmonology is following
Inflammatory bowel disorder:
-Currently on Remicade
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
Carcinoma of the ileum:
-Has an outpatient appointment scheduled with oncology
Normocytic anemia:
� Monitor outpatient
Depression:
-Continue sertraline
Full code
Anticipated Discharge: 24 - 48 hours
Subjective/Interval History
-
Date of Service: September 02, 2024
Pain in the chest and abdomen. marga pain on the left side where they placed her chest tube on 09/01. Her ileostomy bag is leaking, so asked nurse to take care of it. patient currently on low residue diet. no acute overnight events. No nausea,
vomiting, diarrhea.
Objective Data
-
Labs:
Laboratory Results
09/02/24
07:56
WBC 5.6
Hgb 10.9 L
Hct 35.4 L
Plt Count 504 H
Sodium 142
Potassium 4.3
Chloride 105
Carbon Dioxide 28
BUN 5 L
Creatinine 0.5 L
Glucose 92
Calcium 8.5
Total Bilirubin 0.1 L
AST 19
ALT 14
Alkaline Phosphatase 216 H
Vital Signs:
Vital Signs
Temp Pulse Resp BP Pulse Ox
97.7 F 73 18 99/64 98
09/02/24 15:47 09/02/24 15:47 09/02/24 15:47 09/02/24 15:47 09/02/24 15:47
I&O
09/01/24 09/02/24 09/03/24
06:59 06:59 06:59
Intake Total 240 / 240 420 / 420
Output Total 135 / 135 1040 / 1040
Balance 105 / 105 -620 / -620
Review of Systems
-
History Source: Patient
Constitutional: Reports No Appetite
Respiratory: Reports No Symptoms
Cardiac: Reports No Symptoms
Abdomen/GI: Reports Abdominal Pain
Physical Exam
-
General: Appears in Distress
Respiratory: Clear to Auscultation
Cardiac: Regular Rhythm and S1/S2
GI: Tender (generalized) and Ostomy
Skin: Warm and Dry
Neuro: Awake, Alert, Oriented and AO x 3
Data Reviewed
-
Medical Tests (Nuc Med, Echo etc): Image personally visualized and interpreted and Discussed with Physician
Labs: Labs Reviewed by me and Discussed with Physician
[2024-09-02] MEDS: LOVENOX 40 MG SC (16:36)
--- NOTE | 2024-09-02 19:20 | PTCARENOTE ---
Ileostomy appliance changed this shift.
[2024-09-02 23:23] VITALS: BP 107/69
[2024-09-03] MEDS: ROXICODONE 15 MG PO ×3 (02:53→18:24)
[2024-09-03] MEDS: TYLENOL 650 MG PO ×4 (05:42→19:06)
[2024-09-03 06:00] VITALS: BMI 19.9
[2024-09-03 07:35] VITALS: BP 109/68
[2024-09-03 07:55] VITALS: BP 103/71
[2024-09-03 08:07] LABS: % Basophils 0.7 % (0-2); % Eosinophils 5.7 % (0-6); % Immature Granulocytes 0.7 % (0-0.5); % Lymphocytes 37.6 % (20.5-51.1); % Neutrophils 47.3 % (42.2-75.2); Absolute Eosinophils 0.3 10^3/uL (0-0.7); Absolute Lymphocytes 2.1 10^3/uL (1.2-3.4); Absolute Monocytes 0.5 10^3/uL (0.1-0.6); Absolute Neutrophils 2.7 10^3/uL (1.4-6.5); Hematocrit 32.6 % (37.0-47.0); Mean Corp Hgb Conc. 30.7 g/dL (33.0-37.0); Mean Corpuscular Hgb 28.5 pg (27.0-31.0); Mean Corpuscular Volume 92.9 fL (81.0-99.0); Mean Platelet Volume 9.1 fL (7.4-10.4); Nucleated Red Blood Cells % 0 %; Platelet Count 454 10^3/uL (130-400); Red Blood Cell Count 3.51 10^6/uL (4.20-5.40); Red Cell Dist. Width 16.2 % (11.5-14.5); White Blood Cell Count 5.7 10^3/uL (4.8-10.8)
[2024-09-03] MEDS: OSCAL CAL 500 500 MG PO (08:17)
[2024-09-03] MEDS: AUGMENTIN 875 MG/125 MG 1 TABLET PO ×2 (08:18→20:37)
[2024-09-03] MEDS: PROTONIX 40 MG PO ×2 (08:19→20:37)
[2024-09-03] MEDS: ZOLOFT 75 MG PO (08:20)
[2024-09-03 09:37] LABS: ALT (SGPT) 12 U/L (0-35); AST (SGOT) 22 U/L (14-36); Albumin 2.7 g/dl (3.5-5.0); Alkaline Phosphatase 190 U/L (38-126); Blood Urea Nitrogen 6 mg/dl (7-17); Calcium 8.6 mg/dl (8.4-10.2); Carbon Dioxide 25 mmol/L (22-30); Chloride 104 mmol/L (98-107); Estimated Creatinine Clearance 98 ml/min; Glucose 96 mg/dl (70-99); Potassium 4.1 mmol/L (3.5-5.1); Sodium 139 mmol/L (135-145); Total Bilirubin 0.3 mg/dl (0.2-1.3); Total Protein 5.5 g/dl (6.3-8.2); eGFR > 60.00
--- NOTE | 2024-09-03 09:40 | W.PN.PUL3 ---
Today's Communication / Plan
-
IR consult for lytic therapy, patient agreeable
Will monitor output in next 24 hours
Repeat CXR in AM
Pain control
Encourage OOB/chair, ambulation if able
Assessment
-
54-year-old female with a past medical history of inflammatory bowel disease with suspected ulcerative colitis, depression, and recent total abdominal hysterectomy/bilateral salpingo-oophorectomy on 08/05/2024 due to perforated viscus with
peritonitis and enlarged uterus with calcified leiomyoma who presents with chest pain and shortness of breath. She was given ASA 324 mg prior to arriving here to the [place] ER. She continues to have abdominal pain at prior laparoscopic sites.
In the ER she was afebrile to 99.8 �F, pulse rate 97, breathing at 25 breaths/minute, BP 122/90 and saturating 91% on room air. Initial labs showed WBC WNL at 9.2, Hb 10.7, platelets 749, and troponin negative at <0.012. Initial CXR showed
moderate left-sided pleural effusion with right lower lobe patchy opacities likely atelectasis. Subsequent CTA chest was negative for an acute PE and it showed moderate loculated left pleural effusion with a mild left lower lobe consolidation. She
was given Toradol 50 mg in the ER and then admitted to med-surg under the hospitalist with pulmonary consulted for additional management/recommendations.
Chronic conditions [employer]: IBD on Remicade, depression, insomnia, psoriasis, history of sepsis due to perforated viscus with peritonitis s/p MP/BSO on 08/05/2024 with multiple intra-abdominal abscess requiring JAXSON drains and well-differentiated
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
Impression:
#Multiloculated pleural effusions on left hemithorax
#Perforated viscous with secondary peritonitis s/p recent MP/BSO on 08/05/2024 with incidentally discovered degenerating fibroid
#Chronic anemia
#Thrombocytosis likely reactive due to above
#Chronically elevated ALP
#Hx of IBD/UC with diffuse colitis seen on CT A/P from 07/26/2024 currently on Remicade
#Depression
#History of insomnia
Plan:
Currently stable on RA, no new complaints
SOB is not improving post chest tube
The patient currently has a left-sided loculated pleural effusion predominantly in the L base
She did have a small left-sided pleural effusion seen on the CT abdomen/pelvis from 07/26/2024 when she was diagnosed with diffuse colitis and then later found to have a perforated viscus with pneumoperitoneum + secondary peritonitis requiring
ex-lap on 08/05/2024 --> she was on ABx rec'd by ID as OR cultures were positive for MSSA, E. coli, strep + Klebsiella pneumonia and her hospital course at that time was complicated by intra-abdominal abscesses requiring percutaneous drainage with
abscess culture positive for Enterococcus faecalis, E. coli + Klebsiella pneumoniae --> continue with Augmentin that she was supposed to be on until 09/04/[address] abdomen/pelvis on 08/15/2024 showed a small sized left pleural effusion with a trace size right-sided pleural effusion
Possible intra-abdominal pathology that she had last month contributing to this left-sided pleural effusion which is now loculated
I reviewed her CT chest findings from 08/30/2024 with interventional radiology today with Dr. Mathias, and this likely LLL-effusion should be drained with a chest tube
s/p chest tube placement by IR 09/01/24
Repeat CXR 09/02/24 improved, may consider lytic dosing tonight and 24 hours observation post
Discussed case with IR, to perform today
Fluid studies reviewed: pH 7.44 - glu 84 - tp 3.5 - LDH 299 -- indicating exudate
serum LDH 231 - TP 5.5
Parapneumonic fluid most likely, culture and cyto pending
She is maintained on abx
Follow fluid output for now
Follow daily CXRs
Pain control, reviewed with nursing
Replete electrolytes with K>4, Mg>2
Maintain euglycemia with goal BG >100 and <180
Outpatient follow up with Oncology for the well-differentiated neuroendocrine tumor seen on pathology from her terminal ileum/colon segmental resection from 08/05/2024
DVT ppx: LMWH
Pulmonary service will continue to follow along.
Data:
CXR 08/30/24- Moderate left-sided pleural effusion with associated compressive atelectasis. There are patchy opacities within the right lower lung, favoring atelectasis.
08/12/24- 1. Postoperative chest.
2. Hazy left lung opacity suggesting layering pleural fluid.
CTA Chest 08/30/2024:No evidence of pulmonary embolus. Moderate loculated left pleural effusion. Progressed. Mild left lower lobe consolidation probably atelectasis. Developing pneumonia not excluded. Stable. Findings consistent prior benign
granulomas disease. Stable
-----
Total time spent today was 51 minutes for this encounter. Time includes reviewing laboratory test/imaging results, reviewing pertinent medical records, obtaining and reviewing medical history, performing an appropriate exam, ordering medications,
tests and procedures. Time also includes documentation of this encounter, coordinating patient care and communicating with other healthcare professionals. Total time does not include separately billed tests performed on this date of service.
Subjective Data
-
Date of Service:
Date of Service: September 03, 2024
Chief Complaint: Pulmonary Follow Up
Subjective:
No acute events ON, remains stable on RA
Will plan for lytic therapy today
Objective Data
Data Reviewed
Vital Signs / I&O / Oxygen:
Vital Signs
Temp Pulse Resp BP Pulse Ox
98.8 F 74 20 103/71 96
09/03/24 07:55 09/03/24 07:55 09/03/24 07:55 09/03/24 07:55 09/03/24 07:55
Intake and Output
09/02/24 09/03/24 09/04/24
06:59 06:59 06:59
Intake Total 420 / 420
Output Total 1010 / 1010 165 / 165
Balance -590 / -590 -165 / -165
SaO2 96
Physical Exam
General: Comfortable, Pain and Other (NAD)
HEENT: Normocephalic, Anicteric and Moist Mucous Membranes
Cardiovascular: S1-S2 and Regular Rhythm
Respiratory: Clear, Non-Labored Respirations and Chest Tube
GI: Soft, Non Distended, Non Tender and Other (ostomy in place, JAXSON drain)
Neurology: Awake, Alert, Oriented and No Motor Deficits
Skin: Warm, Dry and Good Color
Labs/Micro/Reports
Lab Data
09/03/24 07:44
09/03/24 07:44
Microbiology
09/01/24 11:50 Pleural Fluid Body Fluid Culture - Preliminary
No Growth After 48 Hours
09/01/24 11:50 Pleural Fluid Gram Stain - Preliminary
09/01/24 11:50 Pleural Fluid Fungal Culture - Preliminary
Culture in progress.
Positive cultures are reported as soon as detected.
Final report to follow in four to five weeks.
08/30/24 19:56 Nose MRSA Screen - Final
No Methicillin Resistant Staphylococcus aureus isolated.
[2024-09-03 11:49] VITALS: BP 101/72
[2024-09-03] MEDS: XANAX 0.25 MG PO ×2 (11:52→20:37)
--- NOTE | 2024-09-03 12:13 | PN.IRAD.UPD ---
Update Note - IRAD
- -
8MG TPA, 5 MG DORNASE instilled via left chest tube at bedside. Patient tolerated procedure well. Chest tube clamped at 12:00. RN notified.
--- NOTE | 2024-09-03 13:00 | WOUNDNOTE ---
[facility] RN note: Patient admitted with L pleural effusion. She was admitted from SNF.
See H&P for complete history.
PMH: 08/05/24 Total abdominal colectomy with ileostomy, IBS, Chron's.
Wound Location and type/assessment: Patient admitted with: Peristomal yeast rash. Coccyx mild yeasty red skin with some peeling skin. Skin on heels intact, blanchable mild red.
Appetite: fair.
Pressure redistribution devices in place: Waffle air overlay. Patient can turn self in bed.
Plan: Patient's pouch was not snapped on completely and had some leakage. Changed ileostomy appliance treating peristomal skin with Miconazole powder followed by no sting skin prep. Wafer # [id number] with Flora seal and [place] pouch # [id number] applied.
Extra appliance change in room. Nursing can help patient with pouch changes.
Care plan to be updated. Will follow peripherally as needed.
[2024-09-03] MEDS: LIDOCAINE 4% PATCH 1 PATCH TOPICAL (14:00)
--- NOTE | 2024-09-03 14:05 | PTCARENOTE ---
AT 1400, Chest tube unclamped as per order.
--- NOTE | 2024-09-03 16:42 | W.PN.HOSP.TC ---
Addendum entered and electronically signed by Dell Guzman MD 09/03/24 22:53:
Attending Addendum-
I saw and evaluated the patient. I reviewed the resident�s note and agree with findings and plan as documented in the resident�s note. Sub: complain of pain @ CT tube side. Denies SOB. feels fatigued. Full 12 point ROS reviewed and negative except
as documented Exam: Vitals reviewed in chart GEN-NAD heart RRR lungs decreased BS LLL CT in place abd soft + ileostomy incision CDI + JAXSON drain LE no edema
Plan:
#Loculated left-sided pleural effusion
- exudate
- CT placed 09/01 by IR monitor output over next 24 hours
- appreciate pulm input
- lytic therapy today by IR 09/03
#Neuroendocrine Tumor of the Ileum
- no adjuvant therapy at this time
- follow-up with Dr. Mandel of medical oncology regarding her carcinoid.
# Recent admission for Sepsis with intra-abdominal abscess, pneumoperitoneum on 08/05 requiring total abdominal colectomy with end ileostomy
-Monitor output from ileostomy
-Low Residue diet
-Continue pain control
#Abdominal Abscess
- Intra abdominal drain placed by IR on 08/15
- JAXSON drain -monitor output
- cont Augmentin->09/04
#IBS
- hold remicade
- Continue oxycodone 15 mg every 6 hours as needed severe pain
#Large degenerating fibroid
- Required an exploratory lap with total abdominal hysterectomy and bilateral salpingo-oophorectomy 08/05
- Follow-up with urogynecology outpatient
# GERD
- cont omeprazole
#Depression/Anxiety
- cont Zoloft
- cont prn ativan
DVT prophylaxis
Subcu Lovenox
Dispo Eventual DC back to [facility] in 48 hours
Time spent coordinating care, review of plan of care with resident, personally reviewed records in EMR, med rec, consults, notes, labs, radiology, d/w nursing, pulm � 57 mins
Original Note:
Today's Communication/Plan
-
Follow-up with pulmonology
Assessment / Plan
Assessment / Plan
Loculated pleural effusion:
-Pulmonology states that no plans for CT scan today, just a lytic therapy, repeat chest x-ray in a.m. will make a decision when to do CT scan on a day-to-day basis 09/03
- Repeat chest xray showed significant improvement in size of the pleural effusion per pulmonary team, would like to have CT scan of her done in 48-72 hours to check progression of plueral effusion (09/02)
-Left-sided loculated pleural effusion in the lower left base of the lung
-Fluid studies showed pH 7.44, glucose 84, LDH 299 serum LDH 231, TP 5.5 indicating exudate
-Pain control as needed
-Maintain oxygen saturation keep above 92%, patient is currently well on room air
-Daily chest x-rays to check for progression
-Continue current antibiotics
Inflammatory bowel disorder:
-Currently on Remicade
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
Carcinoma of the ileum:
-Has an outpatient appointment scheduled with oncology
Normocytic anemia:
� Monitor outpatient
Shoulder pain:
-Prescribed lidocaine patch 4%
-Tylenol as needed
Depression:
-Continue sertraline
Full code
Anticipated Discharge: Within 24 hours
Subjective/Interval History
-
Date of Service: September 03, 2024
No acute overnight events.
Patient was complaining of pain last night from the left neck to the shoulder. Moderate in intensity, does not radiate, pins and needle sensation, not aggravated on movement, partially relieved on taking Tylenol.
Patient is still feeling abdominal pain.
Objective Data
-
Labs:
Laboratory Results
09/03/24
07:44
WBC 5.7
Hgb 10.0 L
Hct 32.6 L
Plt Count 454 H
Sodium 139
Potassium 4.1
Chloride 104
Carbon Dioxide 25
BUN 6 L
Creatinine 0.5 L
Glucose 96
Calcium 8.6
Total Bilirubin 0.3
AST 22
ALT 12
Alkaline Phosphatase 190 H
Vital Signs:
Vital Signs
Temp Pulse Resp BP Pulse Ox
98.1 F 80 16 101/72 96
09/03/24 11:49 09/03/24 11:49 09/03/24 11:49 09/03/24 11:49 09/03/24 11:49
I&O
09/02/24 09/03/24 09/04/24
06:59 06:59 06:59
Intake Total 420 / 420
Output Total 1010 / 1010 165 / 165
Balance -590 / -590 -165 / -165
Review of Systems
-
History Source: Patient
Constitutional: Denies Fever or Chills
Respiratory: Denies Cough
Cardiac: Denies Chest Pain or Palpitations
Abdomen/GI: Reports Abdominal Pain; Denies Nausea, Vomiting or Diarrhea
Musculoskeletal: Reports Muscle Pain (Left shoulder)
Physical Exam
-
General: Appears Chronically Ill
Respiratory: Clear to Auscultation
Cardiac: Regular Rhythm and S1/S2
GI: Tender (Generalized tenderness) and Ostomy
Skin: Warm and Dry
Neuro: Awake, Alert, Oriented and AO x 3
Data Reviewed
-
Medical Tests (Nuc Med, Echo etc): Image personally visualized and interpreted and Discussed with Physician
Labs: Labs Reviewed by me and Discussed with Physician
[2024-09-03] MEDS: LOVENOX 40 MG SC (17:31)
[2024-09-03 23:05] VITALS: BP 100/70
[2024-09-04] MEDS: ROXICODONE 15 MG PO ×4 (05:41→23:51)
[2024-09-04 06:00] VITALS: BMI 18.8
[2024-09-04] MEDS: TYLENOL 650 MG PO ×3 (06:25→16:34)
[2024-09-04 07:12] VITALS: BP 97/64
[2024-09-04 08:08] LABS: Hematocrit 36.6 % (37.0-47.0); Hemoglobin 11.3 g/dL (12.0-16.0); Mean Corp Hgb Conc. 30.9 g/dL (33.0-37.0); Mean Corpuscular Hgb 28.6 pg (27.0-31.0); Mean Corpuscular Volume 92.7 fL (81.0-99.0); Mean Platelet Volume 9.2 fL (7.4-10.4); Platelet Count 462 10^3/uL (130-400); Red Blood Cell Count 3.95 10^6/uL (4.20-5.40); Red Cell Dist. Width 16.2 % (11.5-14.5); White Blood Cell Count 7.3 10^3/uL (4.8-10.8)
[2024-09-04] MEDS: PROTONIX 40 MG PO ×2 (08:10→20:05)
[2024-09-04] MEDS: AUGMENTIN 875 MG/125 MG 1 TABLET PO ×2 (08:10→20:04)
[2024-09-04] MEDS: OSCAL CAL 500 500 MG PO (08:10)
[2024-09-04] MEDS: ZOLOFT 75 MG PO (08:11)
[2024-09-04] MEDS: LIDOCAINE 4% PATCH 1 PATCH TOPICAL (08:11)
[2024-09-04] MEDS: XANAX 0.25 MG PO (08:19)
[2024-09-04 08:49] LABS: Blood Urea Nitrogen 5 mg/dl (7-17); Calcium 8.6 mg/dl (8.4-10.2); Carbon Dioxide 23 mmol/L (22-30); Chloride 103 mmol/L (98-107); Estimated Creatinine Clearance 92 ml/min; Glucose 125 mg/dl (70-99); Potassium 3.7 mmol/L (3.5-5.1); Sodium 138 mmol/L (135-145); eGFR > 60.00
--- NOTE | 2024-09-04 08:59 | W.PN.HOSP.TC ---
Addendum entered and electronically signed by Dell Guzman MD 09/04/24 23:50:
Attending Addendum-
I saw and evaluated the patient. I reviewed the resident�s note and agree with findings and plan as documented in the resident�s note. Sub: complains of increased pain @ CT tube side. Denies SOB. feels fatigued. Full 12 point ROS reviewed and
negative except as documented Exam: Vitals reviewed in chart GEN-NAD heart RRR lungs decreased BS LLL CT in place bloody fluid abd soft + ileostomy incision CDI + JAXSON drain LE no edema
Plan:
#Loculated left-sided pleural effusion
- exudate
- CT placed 09/01 by IR monitor output over next 24 hours
- appreciate pulm input
- lytic therapy IR 09/03 with increased OP after
- hopeful DC CT in am
#Neuroendocrine Tumor of the Ileum
- no adjuvant therapy at this time
- follow-up with Dr. Mandel of medical oncology regarding her carcinoid.
# Recent admission for Sepsis with intra-abdominal abscess, pneumoperitoneum on 08/05 requiring total abdominal colectomy with end ileostomy
-Monitor output from ileostomy
-Low Residue diet
-Continue pain control
#Abdominal Abscess
- Intra abdominal drain placed by IR on 08/15- possible remove in am
- JAXSON drain -monitor output
- completed course of Augmentin->09/04
#IBS
- hold remicade
- Continue oxycodone 15 mg every 6 hours as needed severe pain
#Large degenerating fibroid
- Required an exploratory lap with total abdominal hysterectomy and bilateral salpingo-oophorectomy 08/05
- Follow-up with urogynecology outpatient
# GERD
- cont omeprazole
#Depression/Anxiety
- cont Zoloft
- cont prn ativan
DVT prophylaxis
Subcu Lovenox
Dispo- DC back to [facility] in AM
Time spent coordinating care, review of plan of care with resident, personally reviewed records in EMR, med rec, consults, notes, labs, radiology, d/w nursing, pulm � 55 mins
Original Note:
Today's Communication/Plan
-
prepare for potential discharge.
Assessment / Plan
Assessment / Plan
Loculated pleural effusion:
- patient does not want any further treatment with chest tube nor lytic therapy 09/04
- On last day of augmentin 09/04
- Xray scan shows left lower airspace disease and small volume pleural fluid and then on the right lung base, subsegmental atelectasis or pneumonia. 09/04
-Pulmonology states that no plans for CT scan today, just a lytic therapy, repeat chest x-ray in a.m. will make a decision when to do CT scan on a day-to-day basis 09/03
- Repeat chest xray showed significant improvement in size of the pleural effusion per pulmonary team, would like to have CT scan of her done in 48-72 hours to check progression of plueral effusion (09/02)
-Left-sided loculated pleural effusion in the lower left base of the lung
-Fluid studies showed pH 7.44, glucose 84, LDH 299 serum LDH 231, TP 5.5 indicating exudate
-Pain control as needed
-Maintain oxygen saturation keep above 92%, patient is currently well on room air
-Daily chest x-rays to check for progression
Subsegmental ateletasis?
Pneumonia?:
- Xray scan shows left lower airspace disease and small volume pleural fluid and then on the right lung base, subsegmental atelectasis or pneumonia. 09/04
- Review cbc and bmp in AM
- Monitor vitals especially oxygen saturation and temperature
- No increased wbc count
- Continue to monitor
Inflammatory bowel disorder:
-Currently on Remicade
-Follow-up with family life counselor
Carcinoma of the ileum:
-Has an outpatient appointment scheduled with oncology
Normocytic anemia:
� Monitor outpatient
Shoulder pain:
-Prescribed lidocaine patch 4%
-Tylenol as needed
Depression:
-Continue sertraline
GERD:
- Continue omeprazole
Large fibroids:
- Follow up with gynecology
Full code
DVY prophylaxies
Subcutaneous Lovenox
Anticipated Discharge: 24 - 48 hours
Subjective/Interval History
-
Date of Service: September 04, 2024
No acute overnight events.
Still has abdominal pain, still has left sided shoulder pain, and pain at the site of chest tube insertion.
Chest tube is draining fluid which is a dark brown colour.
On last day of augmentin today.
Objective Data
-
Labs:
Laboratory Results
09/04/24
07:12
WBC 7.3
Hgb 11.3 L
Hct 36.6 L
Plt Count 462 H
Sodium 138
Potassium 3.7
Chloride 103
Carbon Dioxide 23
BUN 5 L
Creatinine 0.4 L
Glucose 125 H
Calcium 8.6
Vital Signs:
Vital Signs
Temp Pulse Resp BP Pulse Ox
97.8 F 106 18 97/64 93
09/04/24 07:12 09/04/24 07:12 09/04/24 07:12 09/04/24 07:12 09/04/24 07:12
I&O
09/03/24 09/04/24 09/05/24
06:59 06:59 06:59
Intake Total 360 / 360
Output Total 165 / 165 845 / 845
Balance -165 / -165 -485 / -485
Review of Systems
-
History Source: Patient
Constitutional: Denies Fever, Fatigue or Chills
Respiratory: Denies Cough or Trouble Breathing
Cardiac: Denies Chest Pain, Palpitations or Syncope
Abdomen/GI: Reports Abdominal Pain; Denies Nausea, Vomiting or Diarrhea
Musculoskeletal: Denies Joint Pain
Physical Exam
-
General: Appears Chronically Ill
Respiratory: Rales (right lower lobe)
Cardiac: Regular Rhythm and S1/S2
GI: Tender (generalized tenderness) and Ostomy
Skin: Warm and Dry
Neuro: Awake, Alert, Oriented and AO x 3
Data Reviewed
-
Medical Tests (Nuc Med, Echo etc): Image personally visualized and interpreted and Discussed with Physician
Labs: Labs Reviewed by me and Discussed with Physician
--- NOTE | 2024-09-04 09:13 | W.PN.PUL3 ---
Today's Communication / Plan
-
s/p lytic therapy 09/03/24 with significant output >600mL
repeat CXR improved
she does not wish to do another treatment
can monitor another 24 hours and likely discontinue tube tomorrow
Assessment
-
54-year-old female with a past medical history of inflammatory bowel disease with suspected ulcerative colitis, depression, and recent total abdominal hysterectomy/bilateral salpingo-oophorectomy on 08/05/2024 due to perforated viscus with
peritonitis and enlarged uterus with calcified leiomyoma who presents with chest pain and shortness of breath. She was given ASA 324 mg prior to arriving here to the [place] [facility]. She continues to have abdominal pain at prior laparoscopic sites.
In the ER she was afebrile to 99.8 �F, pulse rate 97, breathing at 25 breaths/minute, BP 122/90 and saturating 91% on room air. Initial labs showed WBC WNL at 9.2, Hb 10.7, platelets 749, and troponin negative at <0.012. Initial CXR showed
moderate left-sided pleural effusion with right lower lobe patchy opacities likely atelectasis. Subsequent CTA chest was negative for an acute PE and it showed moderate loculated left pleural effusion with a mild left lower lobe consolidation. She
was given Toradol 50 mg in the ER and then admitted to med-surg under the hospitalist with pulmonary consulted for additional management/recommendations.
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
Impression:
#Multiloculated pleural effusions on left hemithorax
#Perforated viscous with secondary peritonitis s/p recent MP/BSO on 08/05/2024 with incidentally discovered degenerating fibroid
#Chronic anemia
#Thrombocytosis likely reactive due to above
#Chronically elevated ALP
#Hx of IBD/UC with diffuse colitis seen on CT A/P from 07/26/2024 currently on Remicade
#Depression
#History of insomnia
Plan:
Currently stable on RA, no new complaints
SOB is not improving post chest tube
The patient currently has a left-sided loculated pleural effusion predominantly in the L base
She did have a small left-sided pleural effusion seen on the CT abdomen/pelvis from 07/26/2024 when she was diagnosed with diffuse colitis and then later found to have a perforated viscus with pneumoperitoneum + secondary peritonitis requiring
ex-lap on 08/05/2024 --> she was on ABx rec'd by ID as OR cultures were positive for MSSA, E. coli, strep + Klebsiella pneumonia and her hospital course at that time was complicated by intra-abdominal abscesses requiring percutaneous drainage with
abscess culture positive for Enterococcus faecalis, E. coli + Klebsiella pneumoniae --> continue with Augmentin that she was supposed to be on until 09/04/[address] abdomen/pelvis on 08/15/2024 showed a small sized left pleural effusion with a trace size right-sided pleural effusion
Possible intra-abdominal pathology that she had last month contributing to this left-sided pleural effusion which is now loculated
I reviewed her CT chest findings from 08/30/2024 with interventional radiology today with Dr. Mathias, and this likely LLL-effusion should be drained with a chest tube
s/p chest tube placement by IR 09/01/24
Repeat CXR 09/02/24 improved, may consider lytic dosing tonight and 24 hours observation post
Discussed case with IR, lytic therapy placed 09/03/24, 690mL output overnight
She does not wish to do again, repeat CXR improved
We discussed 24 hours observation and likely discontinue tomorrow
Fluid studies reviewed: pH 7.44 - glu 84 - tp 3.5 - LDH 299 -- indicating exudate
serum LDH 231 - TP 5.5
Parapneumonic fluid most likely, culture and cyto pending
She is maintained on abx
Follow fluid output for now
Follow daily CXRs
Pain control, reviewed with nursing
Replete electrolytes with K>4, Mg>2
Maintain euglycemia with goal BG >100 and <180
Outpatient follow up with Oncology for the well-differentiated neuroendocrine tumor seen on pathology from her terminal ileum/colon segmental resection from 08/05/2024
DVT ppx: LMWH
Pulmonary service will continue to follow along.
Data:
CXR 08/30/24- Moderate left-sided pleural effusion with associated compressive atelectasis. There are patchy opacities within the right lower lung, favoring atelectasis.
08/12/24- 1. Postoperative chest.
2. Hazy left lung opacity suggesting layering pleural fluid.
CTA Chest 08/30/2024:No evidence of pulmonary embolus. Moderate loculated left pleural effusion. Progressed. Mild left lower lobe consolidation probably atelectasis. Developing pneumonia not excluded. Stable. Findings consistent prior benign
granulomas disease. Stable
-----
Total time spent today was 51 minutes for this encounter. Time includes reviewing laboratory test/imaging results, reviewing pertinent medical records, obtaining and reviewing medical history, performing an appropriate exam, ordering medications,
tests and procedures. Time also includes documentation of this encounter, coordinating patient care and communicating with other healthcare professionals. Total time does not include separately billed tests performed on this date of service.
Subjective Data
-
Date of Service:
Date of Service: September 04, 2024
Chief Complaint: Pulmonary Follow Up
Subjective:
no new events ON
lytic therapy placed, >600 output
Objective Data
Data Reviewed
Vital Signs / I&O / Oxygen:
Vital Signs
Temp Pulse Resp BP Pulse Ox
97.8 F 106 18 97/64 93
09/04/24 07:12 09/04/24 07:12 09/04/24 07:12 09/04/24 07:12 09/04/24 07:12
Intake and Output
09/03/24 09/04/2424
06:59 06:59 06:59
Intake Total 360 / 360
Output Total 165 / 165 845 / 845
Balance -165 / -165 -485 / -485
SaO2 93
Physical Exam
General: Comfortable, Pain and Other (NAD)
HEENT: Normocephalic, Anicteric and Moist Mucous Membranes
Cardiovascular: S1-S2 and Regular Rhythm
Respiratory: Clear, Non-Labored Respirations and Chest Tube
GI: Soft, Non Distended, Non Tender and Other (ostomy in place, JAXSON drain)
Neurology: Awake, Alert, Oriented and No Motor Deficits
Skin: Warm, Dry and Good Color
Labs/Micro/Reports
Lab Data
09/04/24 07:12
09/04/24 07:12
Microbiology
09/01/24 11:50 Pleural Fluid Body Fluid Culture - Final
No Growth After 72 Hours
09/01/24 11:50 Pleural Fluid Gram Stain - Final
09/01/24 11:50 Pleural Fluid Acid Fast Bacilli Smear - Preliminary
09/01/24 11:50 Pleural Fluid Acid Fast Bacilli Culture - Preliminary
09/01/24 11:50 Pleural Fluid Fungal Culture - Preliminary
Culture in progress.
Positive cultures are reported as soon as detected.
Final report to follow in four to five weeks.
08/30/24 19:56 Nose MRSA Screen - Final
No Methicillin Resistant Staphylococcus aureus isolated.
[2024-09-04 12:14] VITALS: BP 97/71; PULSE 95
[2024-09-04 15:20] VITALS: BMI 18.8
[2024-09-04] MEDS: LOVENOX 40 MG SC (17:35)
[2024-09-04] MEDS: MELATONIN 5 MG PO (20:08)
[2024-09-04 23:39] VITALS: BP 97/70
[2024-09-05] MEDS: TYLENOL 650 MG PO ×3 (03:32→17:18)
[2024-09-05] MEDS: ROXICODONE 15 MG PO ×2 (06:18→13:46)
[2024-09-05 06:40] VITALS: BMI 19.5
[2024-09-05 07:18] VITALS: BP 94/70
[2024-09-05 08:04] LABS: Hematocrit 35.8 % (37.0-47.0); Mean Corp Hgb Conc. 30.7 g/dL (33.0-37.0); Mean Corpuscular Hgb 28.2 pg (27.0-31.0); Mean Corpuscular Volume 91.8 fL (81.0-99.0); Mean Platelet Volume 9.3 fL (7.4-10.4); Platelet Count 436 10^3/uL (130-400); Red Cell Dist. Width 16.5 % (11.5-14.5); White Blood Cell Count 8.6 10^3/uL (4.8-10.8)
--- NOTE | 2024-09-05 08:05 | W.DCSUMMARY ---
Discharge Summary
Discharge Data
Date of Admission: 08/30/24
Date of Discharge: 09/09/24
-
Pending Results: No
Hospital Course
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 Past medical history of inflammatory bowel disease flare with total abdominal colectomy and end ileostomy for
pneumoperitoneum complicated by postop multiple intra-abdominal abscesses with abscess culture positive for Enterococcus faecalis, E. coli, Klebsiella pneumonia for which a drain was placed on 08/15, stage II carcinoid of the ileum, large fibroids,
depression admitted on 08/30 for left-sided chest discomfort and shortness of breath. CT scan on admission showed moderate loculated left pleural effusion and is negative for pulmonary embolism. Pulmonary consulted and chest tube was placed.
Fluid from chest tube was exudative, pH 7.44, glucose 84, LDH 299, serum LDH 231, TP 5.5. Maintained on pain control as needed for the chest tube insertion site pain with Tylenol, oxycodone, morphine added later. She also had lytic therapy and
chest tube had more than 600 mL output from 09/03/2024. Multiple x-rays over the course of hospital stay show improvement in the fluid collection. Patient does not wish to further treatment because of the pain and would like the chest tube pulled
out on 09/06/2024 after 24 hour observation. She would also like her lisandra removed on 09/06/2024. CT scan of the chest on 09/06/2024 shows .
-Neuroendocrine tumor of the ileum, follow-up with Dr. Arnett of medical oncology
-IBS, continue medication on discharge
-Large degenerating fibroid, has follow-up with urogynecology outpatient
-GERD, continue omeprazole
-Sertraline, continue Zoloft increased dosage of 100 and as needed Ativan
Discharge Plan
-
Patient Disposition: Senior Care/SNF
Discharge Diagnosis/Procedures: Loculated left sided pleural effusion, Neuroendocrine tumor of the ileum, sepsis with intra-abdominal abscess and pneumoperitoneum, abdominal abscess, inflammatory bowel disease, large degenerating fibroid, acid
reflux, depression/anxiety
Condition: Fair
Diet: Low Residue
Activity: As tolerated
Driving Restrictions: Not until seen by your Dr
Bathing Restrictions: None
Other Services: PT and OT
Activity Restrictions/Additional Instructions:
Change ileostomy appliance 2 times a week and as needed for leakage.
Wash skin with warm water, do not use baby wipes to clean skin.
Treat peristomal skin rash with Miconazole powder followed by no sting skin prep. Use Wafer # [id number] with Flora seal and
Flora paste just on outside of ring.
2 3/4' high output [place] pouch # [id number]. Use attachment drainage system if bag becomes too heavy.
Pete medium belt
Or [place] pouch # [id number]. with Velcro closure if stool thicker.
Miconazole powder to coccyx/buttocks BID.
Empty pouch when 1/2 full during the day.
Can shower with pouch on
Referrals:
Nahum Mandel, [Active] - in two to four weeks
Karan Richards MD [Family Provider] - in less than 1 week
Prescriptions:
New
acetaminophen 325 mg Tablet
650 mg PO Q4HPRN PRN (Reason: mild pain/DE LA O/temp> 100.4F) Qty: 30 0RF
Continued
alprazolam 0.25 mg Tablet
0.25 mg PO Q8HPRN PRN (Reason: anxiety) Qty: 4 0RF
pantoprazole [Protonix] 40 mg tablet,delayed release (DR/EC)
40 mg PO BID Qty: 60 0RF
melatonin 5 mg Tablet
5 mg PO HSPRN PRN (Reason: insomnia) Qty: 30 0RF
bisacodyl [Dulcolax (bisacodyl)] 10 mg Suppository
10 mg MA DAILYPRN PRN (Reason: if mom is ineffective after 24hrs) Qty: 30 0RF
calcium carbonate [Oyster Shell Calcium] 500 mg calcium (1,250 mg) Tablet
500 mg PO DAILY Qty: 30 0RF
magnesium hydroxide [Milk of Magnesia] 400 mg/5 mL Suspension
30 ml PO DAILYPRN PRN (Reason: if no bm x 3 days) Qty: 1 0RF
sertraline 50 mg Tablet
75 mg PO DAILY Qty: 30 0RF
Fleet Enema 19-7 gram/118 mL Enema
118 ml MA DAILYPRN PRN (Reason: if dulcolax is ineffective after 24hrs) Qty: 1 0RF
Changed
oxycodone 15 mg tablet
15 mg PO Q6HPRN PRN (Reason: severe pain) Qty: 10 0RF
Discontinued
amoxicillin-pot clavulanate 875-125 mg tablet
1 tab PO BID Qty: 18 0RF
Rx Instructions:
last day 09/04/24
Discharge Date and Time
Print Language: YI
[2024-09-05 08:35] LABS: Blood Urea Nitrogen 7 mg/dl (7-17); Calcium 8.4 mg/dl (8.4-10.2); Carbon Dioxide 28 mmol/L (22-30); Chloride 102 mmol/L (98-107); Estimated Creatinine Clearance 95 ml/min; Glucose 120 mg/dl (70-99); Potassium 3.9 mmol/L (3.5-5.1); Sodium 137 mmol/L (135-145); eGFR > 60.00
[2024-09-05] MEDS: LIDOCAINE 4% PATCH 1 PATCH TOPICAL (08:43)
[2024-09-05] MEDS: OSCAL CAL 500 500 MG PO (08:43)
[2024-09-05] MEDS: PROTONIX 40 MG PO ×2 (08:43→19:55)
[2024-09-05] MEDS: ZOLOFT 75 MG PO (08:43)
[2024-09-05] MEDS: MORPHINE SULFATE 2 MG IV (10:39)
--- NOTE | 2024-09-05 11:10 | W.PN.PUL3 ---
Today's Communication / Plan
-
We discussed discontinuation of chest tube and CXR results, she would like to keep it in another 24 hours
Output remains minimal
CT chest in AM
Pain medication change, increased breakthrough dose frequency
Add simethicone for gas
Assessment
-
54-year-old female with a past medical history of inflammatory bowel disease with suspected ulcerative colitis, depression, and recent total abdominal hysterectomy/bilateral salpingo-oophorectomy on 08/05/2024 due to perforated viscus with
peritonitis and enlarged uterus with calcified leiomyoma who presents with chest pain and shortness of breath. She was given ASA 324 mg prior to arriving here to the [place] ER. She continues to have abdominal pain at prior laparoscopic sites.
In the ER she was afebrile to 99.8 �F, pulse rate 97, breathing at 25 breaths/minute, BP 122/90 and saturating 91% on room air. Initial labs showed WBC WNL at 9.2, Hb 10.7, platelets 749, and troponin negative at <0.012. Initial CXR showed
moderate left-sided pleural effusion with right lower lobe patchy opacities likely atelectasis. Subsequent CTA chest was negative for an acute PE and it showed moderate loculated left pleural effusion with a mild left lower lobe consolidation. She
was given Toradol 50 mg in the ER and then admitted to med-surg under the hospitalist with pulmonary consulted for additional management/recommendations.
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
Impression:
#Multiloculated pleural effusions on left hemithorax
#Perforated viscous with secondary peritonitis s/p recent MP/BSO on 08/05/2024 with incidentally discovered degenerating fibroid
#Chronic anemia
#Thrombocytosis likely reactive due to above
#Chronically elevated ALP
#Hx of IBD/UC with diffuse colitis seen on CT A/P from 07/26/2024 currently on Remicade
#Depression
#History of insomnia
Plan:
Currently stable on RA, no new complaints
SOB is not improving post chest tube
The patient currently has a left-sided loculated pleural effusion predominantly in the L base
She did have a small left-sided pleural effusion seen on the CT abdomen/pelvis from 07/26/2024 when she was diagnosed with diffuse colitis and then later found to have a perforated viscus with pneumoperitoneum + secondary peritonitis requiring
ex-lap on 08/05/2024 --> she was on ABx rec'd by ID as OR cultures were positive for MSSA, E. coli, strep + Klebsiella pneumonia and her hospital course at that time was complicated by intra-abdominal abscesses requiring percutaneous drainage with
abscess culture positive for Enterococcus faecalis, E. coli + Klebsiella pneumoniae --> continue with Augmentin that she was supposed to be on until 09/04/[address] abdomen/pelvis on 08/15/2024 showed a small sized left pleural effusion with a trace size right-sided pleural effusion
Possible intra-abdominal pathology that she had last month contributing to this left-sided pleural effusion which is now loculated
I reviewed her CT chest findings from 08/30/2024 with interventional radiology today with Dr. Mathias, and this likely LLL-effusion should be drained with a chest tube
s/p chest tube placement by IR 09/01/24
Repeat CXR 09/02/24 improved, may consider lytic dosing tonight and 24 hours observation post
Discussed case with IR, lytic therapy placed 09/03/24, 690mL output overnight
She does not wish to do again, repeat CXR this AM showing more patchy infiltrate but not definitely fluid
Output remains minimal ~15mL
We discussed removing tube vs 24 hours observation and likely discontinue tomorrow--she wants to keep tube in place
Will obtain CT chest in AM
Fluid studies reviewed: pH 7.44 - glu 84 - tp 3.5 - LDH 299 -- indicating exudate
serum LDH 231 - TP 5.5
Parapneumonic fluid most likely, culture and cyto pending
She is maintained on abx
Follow fluid output for now
Follow daily CXRs
Pain control, reviewed with nursing
Breakthrough dosing increased in frequency
Replete electrolytes with K>4, Mg>2
Maintain euglycemia with goal BG >100 and <180
Outpatient follow up with Oncology for the well-differentiated neuroendocrine tumor seen on pathology from her terminal ileum/colon segmental resection from 08/05/2024
DVT ppx: LMWH
Pulmonary service will continue to follow along.
Data:
CXR 08/30/24- Moderate left-sided pleural effusion with associated compressive atelectasis. There are patchy opacities within the right lower lung, favoring atelectasis.
08/12/24- 1. Postoperative chest.
2. Hazy left lung opacity suggesting layering pleural fluid.
CTA Chest 08/30/2024:No evidence of pulmonary embolus. Moderate loculated left pleural effusion. Progressed. Mild left lower lobe consolidation probably atelectasis. Developing pneumonia not excluded. Stable. Findings consistent prior benign
granulomas disease. Stable
-----
Total time spent today was 51 minutes for this encounter. Time includes reviewing laboratory test/imaging results, reviewing pertinent medical records, obtaining and reviewing medical history, performing an appropriate exam, ordering medications,
tests and procedures. Time also includes documentation of this encounter, coordinating patient care and communicating with other healthcare professionals. Total time does not include separately billed tests performed on this date of service.
Subjective Data
-
Date of Service:
Date of Service: September 05, 2024
Chief Complaint: Pulmonary Follow Up
Subjective:
No new events ON, remains stable on RA
C/o pain at site of tube
Objective Data
Data Reviewed
Vital Signs / I&O / Oxygen:
Vital Signs
Temp Pulse Resp BP Pulse Ox
98.9 F 101 20 94/70 94
09/05/24 07:18 09/05/24 07:18 09/05/24 07:18 09/05/24 07:18 09/05/24 07:18
Intake and Output
09/04/24 09/05/24 09/06/24
06:59 06:59 06:59
Intake Total 360 / 360
Output Total 845 / 845 160 / 160
Balance -485 / -485 -160 / -160
SaO2 94
Physical Exam
General: Comfortable, Pain and Other (NAD)
HEENT: Normocephalic, Anicteric and Moist Mucous Membranes
Cardiovascular: S1-S2 and Regular Rhythm
Respiratory: Clear, Non-Labored Respirations and Chest Tube
GI: Soft, Non Distended, Non Tender and Other (ostomy in place, JAXSON drain)
Neurology: Awake, Alert, Oriented and No Motor Deficits
Skin: Warm, Dry and Good Color
Labs/Micro/Reports
Lab Data
09/05/24 07:45
09/05/24 07:45
Microbiology
09/01/24 11:50 Pleural Fluid Body Fluid Culture - Final
No Growth After 72 Hours
09/01/24 11:50 Pleural Fluid Gram Stain - Final
09/01/24 11:50 Pleural Fluid Acid Fast Bacilli Smear - Preliminary
09/01/24 11:50 Pleural Fluid Acid Fast Bacilli Culture - Preliminary
--- NOTE | 2024-09-05 11:59 | PTCARENOTE ---
Patient walked to door with rolling walker, pain above left chest tube site. Order received for Toradol now
[2024-09-05] MEDS: TORADOL 30 MG IV (12:02)
[2024-09-05 15:16] VITALS: BP 102/74
--- NOTE | 2024-09-05 15:53 | PTCARENOTE ---
Patient having relief of pain left chest following Roxicodone dose
--- NOTE | 2024-09-05 16:14 | PN.CDI ---
CDI
- -
CDI:
Physician Documentation Request
Admit Date: 08/30/24 16:47
Dear Doctor Thomas/Resident ,
Please review the following and provide your response in the progress notes.
Clinical Indicators:
Height: 5 ft 7 in
Weight:124 lb 5 oz
BMI:19.5
Other Clinical Notes: Nutrition consult 09/04, ' ...Patient's weight 08/01/24 was 152 lbs. Her weight today is 120 lbs. This is a 22% BW loss in 1 month (significant).'
If possible, please provide an associated diagnosis related to the abnormal BMI, such as:
Underweight
Weight Loss
Cachectic
- Other
Use of terms such as suspected, likely, concern for, or probable (associated with a specific diagnosis that is being evaluated, monitored, or treated as if it exists) are acceptable and can be coded in the inpatient setting, when documented at the
time of discharge.
Thank you,
Carole Ochoa RN
CDI Specialist
[place] [facility]
Please use your independent medical judgment in providing your response.
[2024-09-05] MEDS: MYLICON 80 MG PO (17:18)
[2024-09-05] MEDS: LOVENOX 40 MG SC (17:18)
--- NOTE | 2024-09-05 17:47 | W.PN.HOSP.TC ---
Addendum entered and electronically signed by Dell Guzman MD 09/06/24 00:02:
Attending Addendum-
I saw and evaluated the patient. I reviewed the resident�s note and agree with findings and plan as documented in the resident�s note. Sub: crying in pain @ CT tube site. Denies SOB. Full 12 point ROS reviewed and negative except as documented Exam:
Vitals reviewed in chart GEN-moderate distress heart RRR lungs decreased BS LLL CT in place bloody fluid abd soft + ileostomy incision CDI lisandra in place + JAXSON drain LE no edema
Plan:
#Loculated left-sided pleural effusion
- exudate
- CT placed- 09/01
- lytic therapy- 09/03
- repeat CXR 09/05- Hazy appearance in the left lower lobe appears increased compared to prior study, likely pleural effusion. There is probable compressive atelectasis on the left. Patchy airspace disease on the right may be atelectasis but
pneumonia cannot be excluded.
- repeat CT chest in am per pulm
- cont CT for now
- appreciate pulm input
#Neuroendocrine Tumor of the Ileum
- no adjuvant therapy at this time
- follow-up with Dr. Mandel of medical oncology regarding her carcinoid.
# Recent admission for Sepsis with intra-abdominal abscess, pneumoperitoneum on 08/05 requiring total abdominal colectomy with end ileostomy
-Monitor output from ileostomy
-Low Residue diet
-Continue pain control
#Abdominal Abscess
- Intra abdominal drain placed by IR on 08/15- able to be removed as now has minimal OP
- JAXSON drain -monitor output
- completed course of Augmentin->09/04
#IBS
- hold remicade
- Continue oxycodone 15 mg every 6 hours as needed severe pain
#Large degenerating fibroid
- Required an exploratory lap with total abdominal hysterectomy and bilateral salpingo-oophorectomy 08/05
- Follow-up with urogynecology outpatient
# GERD
- cont omeprazole
#Depression/Anxiety
- cont Zoloft
- cont prn ativan
DVT prophylaxis
Subcu Lovenox
Dispo- DC back to [facility] when able
Time spent coordinating care, review of plan of care with resident, personally reviewed records in EMR, med rec, consults, notes, labs, radiology, d/w nursing, pulm � 59 mins
Original Note:
Today's Communication/Plan
-
CT scan tomorrow in a.m.
Plan on discharge
Remove lisandra
Assessment / Plan
Assessment / Plan
will need to remove patients lisandra tommorow as she did not want to get them removed today.
Loculated pleural effusion:
-X-ray of the chest shows patchy airspace disease in the right lower lobe, hazy appearance in the left lower lobe which appears increased compared to prior study, no pneumothorax 09/05
-Patient wants chest tube around 24 hours, output is minimal, CT chest tomorrow in the a.m., morphine as pain medication added, simethicone for gas added 09/05
- patient does not want any further treatment with chest tube nor lytic therapy 09/04
- On last day of augmentin 09/04
- Xray scan shows left lower airspace disease and small volume pleural fluid and then on the right lung base, subsegmental atelectasis or pneumonia. 09/04
-Pulmonology states that no plans for CT scan today, just a lytic therapy, repeat chest x-ray in a.m. will make a decision when to do CT scan on a day-to-day basis 09/03
- Repeat chest xray showed significant improvement in size of the pleural effusion per pulmonary team, would like to have CT scan of her done in 48-72 hours to check progression of plueral effusion (09/02)
-Left-sided loculated pleural effusion in the lower left base of the lung
-Fluid studies showed pH 7.44, glucose 84, LDH 299 serum LDH 231, TP 5.5 indicating exudate
-Pain control as needed
-Maintain oxygen saturation keep above 92%, patient is currently well on room air
-Daily chest x-rays to check for progression
Subsegmental ateletasis?
Pneumonia?:
- Xray scan shows left lower airspace disease and small volume pleural fluid and then on the right lung base, subsegmental atelectasis or pneumonia. 09/04
- Review cbc and bmp in AM
- Monitor vitals especially oxygen saturation and temperature
- No increased wbc count
- Continue to monitor
Inflammatory bowel disorder:
-Currently on Remicade
-Follow-up with transfer knitter
Carcinoma of the ileum:
-Has an outpatient appointment scheduled with oncology
Normocytic anemia:
� Monitor outpatient
Shoulder pain:
-Prescribed lidocaine patch 4%
-Tylenol as needed
Depression:
-Sertraline including increased to 100 mg 09/05
GERD:
- Continue omeprazole
Large fibroids:
- Follow up with gynecology
Full code
DVY prophylaxies
Subcutaneous Lovenox
Anticipated Discharge: 24 - 48 hours
Subjective/Interval History
-
Date of Service: September 05, 2024
No acute overnight events.
Chest tube placed has drained 20 mL from 6 AM yesterday to 6 PM today,
Still has abdominal pain
patient did not want staple removal today. Wants it done tomorrow.
Objective Data
-
Labs:
Laboratory Results
09/05/24
07:45
WBC 8.6
Hgb 11.0 L
Hct 35.8 L
Plt Count 436 H
Sodium 137
Potassium 3.9
Chloride 102
Carbon Dioxide 28
BUN 7
Creatinine 0.5 L
Glucose 120 H
Calcium 8.4
Vital Signs:
Vital Signs
Temp Pulse Resp BP Pulse Ox
97.9 F 99 14 102/74 95
09/05/24 15:16 09/05/24 15:16 09/05/24 15:16 09/05/24 15:16 09/05/24 15:16
I&O
09/04/24 09/05/24 09/06/24
06:59 06:59 06:59
Intake Total 360 / 360
Output Total 845 / 845 160 / 160 150 / 150
Balance -485 / -485 -160 / -160 -150 / -150
Review of Systems
-
History Source: Patient
Constitutional: Denies Fever or Fatigue
Respiratory: Denies Cough or Trouble Breathing
Cardiac: Denies Chest Pain, Palpitations or Syncope
Abdomen/GI: Reports Abdominal Pain; Denies Nausea, Vomiting, Diarrhea or Constipated
Physical Exam
-
General: Appears Chronically Ill
GI: Tender and Other (Pain at the chest tube insertion site)
Skin: Warm and Dry
Neuro: Awake, Alert, Oriented and AO x 3
Data Reviewed
-
Medical Tests (Nuc Med, Echo etc): Image personally visualized and interpreted and Report Reviewed by me
Labs: Labs Reviewed by me and Discussed with Physician
[2024-09-05] MEDS: MORPHINE SULFATE 1 MG IV (19:55)
[2024-09-05] MEDS: ZOFRAN 4 MG IV (20:04)
[2024-09-05 23:00] VITALS: BP 100/66
[2024-09-06] MEDS: ROXICODONE 15 MG PO ×3 (02:51→18:30)
[2024-09-06] MEDS: MELATONIN 5 MG PO (02:53)
[2024-09-06 06:11] LABS: Hematocrit 33.4 % (37.0-47.0); Hemoglobin 10.3 g/dL (12.0-16.0); Mean Corp Hgb Conc. 30.8 g/dL (33.0-37.0); Mean Corpuscular Hgb 28.4 pg (27.0-31.0); Mean Platelet Volume 9.1 fL (7.4-10.4); Platelet Count 393 10^3/uL (130-400); Red Blood Cell Count 3.63 10^6/uL (4.20-5.40); Red Cell Dist. Width 16.3 % (11.5-14.5); White Blood Cell Count 5.8 10^3/uL (4.8-10.8)
[2024-09-06 06:30] VITALS: BMI 19.8
[2024-09-06] MEDS: TYLENOL 650 MG PO (06:31)
[2024-09-06 06:33] LABS: ALT (SGPT) 11 U/L (0-35); AST (SGOT) 15 U/L (14-36); Albumin 2.6 g/dl (3.5-5.0); Alkaline Phosphatase 266 U/L (38-126); Blood Urea Nitrogen 7 mg/dl (7-17); Calcium 8.4 mg/dl (8.4-10.2); Carbon Dioxide 26 mmol/L (22-30); Chloride 102 mmol/L (98-107); Estimated Creatinine Clearance 97 ml/min; Glucose 105 mg/dl (70-99); Potassium 4.1 mmol/L (3.5-5.1); Sodium 137 mmol/L (135-145); Total Bilirubin 0.1 mg/dl (0.2-1.3); Total Protein 5.3 g/dl (6.3-8.2); eGFR > 60.00
[2024-09-06 07:32] VITALS: BP 89/59
[2024-09-06] MEDS: OSCAL CAL 500 500 MG PO (08:54)
[2024-09-06] MEDS: LIDOCAINE 4% PATCH TOPICAL (08:54)
[2024-09-06] MEDS: ZOLOFT 100 MG PO (08:54)
[2024-09-06] MEDS: PROTONIX 40 MG PO ×2 (08:54→21:22)
[2024-09-06] MEDS: ProAmatine 5 MG PO ×3 (10:36→18:30)
--- NOTE | 2024-09-06 11:23 | W.PN.HOSP.TC ---
Today's Communication/Plan
-
CT chest pending
start midodrine
oob
Pulm recs
Assessment / Plan
Assessment / Plan
#Loculated left-sided pleural effusion
- exudate
- CT placed- 09/01
- lytic therapy- 09/03
- repeat CXR 09/05- Hazy appearance in the left lower lobe appears increased compared to prior study, likely pleural effusion. There is probable compressive atelectasis on the left. Patchy airspace disease on the right may be atelectasis but
pneumonia cannot be excluded.
- repeat CT chest
- cont CT for now
-Pain control. Morphine prn/oxycodone
- appreciate pulm input
#Neuroendocrine Tumor of the Ileum
- no adjuvant therapy at this time
- follow-up with Dr. Mandel of medical oncology regarding her carcinoid.
# Recent admission for Sepsis with intra-abdominal abscess, pneumoperitoneum on 08/05 requiring total abdominal colectomy with end ileostomy
-Monitor output from ileostomy
-Low Residue diet
-Continue pain control
#Abdominal Abscess
- Intra abdominal drain placed by IR on 08/15- able to be removed as now has minimal OP
- completed course of Augmentin->09/04
#IBS
- hold remicade
- Continue oxycodone 15 mg every 6 hours as needed severe pain
#Large degenerating fibroid
- Required an exploratory lap with total abdominal hysterectomy and bilateral salpingo-oophorectomy 08/05
- Follow-up with urogynecology outpatient
# GERD
- cont omeprazole
#Depression/Anxiety
- cont Zoloft
- cont prn ativan
DVT prophylaxis
Subcu Lovenox
Anticipated Discharge: > 48 hours
Subjective/Interval History
-
Date of Service: September 06, 2024
states of decrease appetite
bp low this am
remains with pain at CT site
Objective Data
-
Labs:
Laboratory Results
09/06/24
05:44
WBC 5.8
Hgb 10.3 L
Hct 33.4 L
Plt Count 393
Sodium 137
Potassium 4.1
Chloride 102
Carbon Dioxide 26
BUN 7
Creatinine 0.5 L
Glucose 105 H
Calcium 8.4
Total Bilirubin 0.1 L
AST 15
ALT 11
Alkaline Phosphatase 266 H
Vital Signs:
Vital Signs
Temp Pulse Resp BP Pulse Ox
98.9 F 85 18 89/59 95
09/06/24 07:32 09/06/24 07:32 09/06/24 07:32 09/06/24 07:32 09/06/24 07:32
I&O
09/05/24 09/06/24 09/07/24
06:59 06:59 06:59
Intake Total 480 / 480
Output Total 160 / 160 215 / 215
Balance -160 / -160 265 / 265
Physical Exam
-
General: Appears Chronically Ill and Cachectic
HEENT: Normocephalic, Atraumatic and Moist Mucous Membranes
Respiratory: Clear to Auscultation and Chest Tubes
Cardiac: Regular Rhythm and S1/S2
GI: Soft, Tender and Ostomy (midline scar noted with lisandra. )
Rectal: Deferred by Provider
Musculoskeletal: No Edema
Skin: Warm and Dry
Neuro: Awake, Alert, Oriented and AO x 3
Psych: Calm
--- NOTE | 2024-09-06 11:29 | CHAP ---
Kacey looked more at ease, said she feels better. She seemed more peaceful and accepting of the situation. Emotional and spiritual support provided. Kacey mentioned that she needs help to recharge her cellphone - motor vehicle representative relayed this to [facility]
Nursing station.
[2024-09-06 11:48] VITALS: BP 96/66
--- NOTE | 2024-09-06 13:06 | W.PN.PUL.V3 ---
Today's Communication / Plan
-
Dr. Beck called Dr. Samano from IR to review CT-is there a role for repositioning chest tube posteriorly or placement of a new chest tube into loculated posterior collection or just removal of chest tube 09/06/2024
Assessment
-
54-year-old female with a past medical history of inflammatory bowel disease with suspected ulcerative colitis, depression, and recent total abdominal hysterectomy/bilateral salpingo-oophorectomy on 08/05/2024 due to perforated viscus with
peritonitis and enlarged uterus with calcified leiomyoma who presents with chest pain and shortness of breath. She was given ASA 324 mg prior to arriving here to the [facility]. She continues to have abdominal pain at prior laparoscopic sites.
In the ER she was afebrile to 99.8 �F, pulse rate 97, breathing at 25 breaths/minute, BP 122/90 and saturating 91% on room air. Initial labs showed WBC WNL at 9.2, Hb 10.7, platelets 749, and troponin negative at <0.012. Initial CXR showed
moderate left-sided pleural effusion with right lower lobe patchy opacities likely atelectasis. Subsequent CTA chest was negative for an acute PE and it showed moderate loculated left pleural effusion with a mild left lower lobe consolidation. She
was given Toradol 50 mg in the ER and then admitted to med-surg under the hospitalist with pulmonary consulted for additional management/recommendations.
Chronic conditions ELECTRO TECH: IBD on Remicade, depression, insomnia, psoriasis, history of sepsis due to perforated viscus with peritonitis s/p MP/BSO on 08/05/2024 with multiple intra-abdominal abscess requiring JAXSON drains and well-differentiated
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
Impression:
#Multiloculated pleural effusions on left hemithorax
#Perforated viscous with secondary peritonitis s/p recent MP/BSO on 08/05/2024 with incidentally discovered degenerating fibroid
#Chronic anemia
#Thrombocytosis likely reactive due to above
#Chronically elevated ALP
#Hx of IBD/UC with diffuse colitis seen on CT A/P from 07/26/2024 currently on Remicade
#Depression
#History of insomnia
Plan:
Respiratory status has improved
Wean FiO2
Aspiration precautions
Incentive spirometry
The patient currently has a left-sided loculated pleural effusion predominantly in the L base
She did have a small left-sided pleural effusion seen on the CT abdomen/pelvis from 07/26/2024 when she was diagnosed with diffuse colitis and then later found to have a perforated viscus with pneumoperitoneum + secondary peritonitis requiring
ex-lap on 08/05/2024 --> she was on ABx rec'd by ID as OR cultures were positive for MSSA, E. coli, strep + Klebsiella pneumonia and her hospital course at that time was complicated by intra-abdominal abscesses requiring percutaneous drainage with
abscess culture positive for Enterococcus faecalis, E. coli + Klebsiella pneumoniae --> continue with Augmentin that she was supposed to be on until 09/04/[address] abdomen/pelvis on 08/15/2024 showed a small sized left pleural effusion with a trace size right-sided pleural effusion
Possible intra-abdominal pathology that she had last month contributing to this left-sided pleural effusion which is now loculated
Dr. Cook reviewed her CT chest findings from 08/30/2024 with interventional radiology today with Dr. Mathias, and this likely LLL-effusion should be drained with a chest tube
s/p chest tube placement by IR 09/01/24
Repeat CXR 09/02/24 improved, may consider lytic dosing tonight and 24 hours observation post
Discussed case with IR, lytic therapy placed 09/03/24, 690mL output overnight
She does not wish to do again, repeat CXR this AM showing more patchy infiltrate but not definitely fluid
Output remains minimal ~15mL
CT chest 09/06/2024-interval left basilar chest tube, redemonstration of moderate loculated left pleural effusion with associated compressive atelectasis, interval resolution of anterior component of loculated pleural fluid with persistent slight
increased component posteriorly
Dr. Beck called Dr. Jazmyne from IR to review CT-is there a role for repositioning chest tube posteriorly or placement of a new chest tube into loculated posterior collection or just removal of chest tube 09/06/2024
Fluid studies reviewed: pH 7.44 - glu 84 - tp 3.5 - LDH 299 -- indicating exudate
serum LDH 231 - TP 5.5
Parapneumonic fluid most likely, culture and cyto pending
She is maintained on abx
Follow fluid output for now
Follow daily CXRs
Pain control, reviewed with nursing
Breakthrough dosing increased in frequency
Replete electrolytes with K>4, Mg>2
Maintain euglycemia with goal BG >100 and <180
Outpatient follow up with Oncology for the well-differentiated neuroendocrine tumor seen on pathology from her terminal ileum/colon segmental resection from 08/05/2024
DVT ppx: LMWH
Pulmonary service will continue to follow along.
Data:
CXR 08/30/24- Moderate left-sided pleural effusion with associated compressive atelectasis. There are patchy opacities within the right lower lung, favoring atelectasis.
08/12/24- 1. Postoperative chest.
2. Hazy left lung opacity suggesting layering pleural fluid.
CTA Chest 08/30/2024:No evidence of pulmonary embolus. Moderate loculated left pleural effusion. Progressed. Mild left lower lobe consolidation probably atelectasis. Developing pneumonia not excluded. Stable. Findings consistent prior benign
granulomas disease. Stable
Subjective Data
-
Date of Service:
Date of Service: September 06, 2024
Chief Complaint: Pulmonary Follow Up and Dyspnea Follow Up
Subjective:
Minimal chest tube output, no complaints of worsening shortness of breath, chest pain or abdominal pain
Review of Systems
General: Other (Per HPI)
Objective Data
Data Reviewed
Vital Signs / I&O:
Vital Signs
Temp Pulse Resp BP Pulse Ox
98.6 F 82 20 96/66 96
09/06/24 11:48 09/06/24 11:48 09/06/24 11:48 09/06/24 11:48 09/06/24 11:48
Intake and Output
09/05/24 09/06/24 09/07/24
06:59 06:59 06:59
Intake Total 480 / 480
Output Total 160 / 160 215 / 215
Balance -160 / -160 265 / 265
SaO2: 96
Physical Exam
General: Respiratory Distress (n), Comfortable, Pain and Other (NAD)
HEENT: Normocephalic, Anicteric and Moist Mucous Membranes
Cardiovascular: Regular Rhythm
Respiratory: Clear, Non-Labored Respirations and Chest Tube
GI: Soft, Non Distended, Non Tender and Other (ostomy in place, JAXSON drain)
Neurology: Awake, Alert, Oriented and No Motor Deficits
Skin: Warm, Dry, Good Color, Cyanosis (n) and Jaundice (n)
Labs/Micro/Reports
Lab Data
09/06/24 05:44
09/06/24 05:44
Microbiology
09/01/24 11:50 Pleural Fluid Fungal Smear - Final
No yeast or fungal elements seen.
09/01/24 11:50 Pleural Fluid Fungal Culture - Preliminary
Culture in progress.
Positive cultures are reported as soon as detected.
Final report to follow in four to five weeks.
09/01/24 11:50 Pleural Fluid Body Fluid Culture - Final
No Growth After 72 Hours
09/01/24 11:50 Pleural Fluid Gram Stain - Final
09/01/24 11:50 Pleural Fluid Acid Fast Bacilli Smear - Preliminary
09/01/24 11:50 Pleural Fluid Acid Fast Bacilli Culture - Preliminary
[2024-09-06] MEDS: MORPHINE SULFATE 1 MG IV ×2 (14:05→21:21)
[2024-09-06] MEDS: FLUSH (NSS) 2 FLUSH IV ×2 (14:06→18:36)
[2024-09-06 15:37] VITALS: BP 107/63
--- NOTE | 2024-09-06 16:11 | PN.IRAD.UPD ---
Update Note - IRAD
- -
Cleaned left side with chloraprep and removed chest tube and abscess drain. Sites dressed with gauze and an optifoam dressing.
Donn Calvillo RT(R)()
--- NOTE | 2024-09-06 16:33 | W.PN.UPDATE ---
Update Note
Progress Note Update
- L chest tube and LUQ abscess drain removed in IR holding area.
- Pt required IV pain meds to aid in removal
- CT chest from today reviewed. There is still a loculated effusion within the posterior left chest not adequately drained by the indwelling tube. I don't believe the indwelling tube could have been repositioned into this collection. Pt also with
significant pain/discomfort with indwelling chest tube.
- Showed her images from her CT and she currently is amenable to a new more posterior chest tube. Given pain from removal of current tube and we may need CT scanner for placement, will tentatively plan for sunday. Please make NPO past midnight
tomorrow.
[2024-09-06 16:43] VITALS: BP 95/65
--- NOTE | 2024-09-06 16:52 | PTCARENOTE ---
received from IRAD post JAXSON drain and chest tube removal. assisted to bed. vitals noted. dressing to old sites dry and intact. patient requesting pain medication. not able to safely give since time from fentanyl dose given within the hour. patient
informed. once in bed appeared to be more comfortable. call quiñones in reach. plan of care on going.
[2024-09-06] MEDS: LOVENOX 40 MG SC (18:29)
[2024-09-06] MEDS: ZOFRAN 4 MG IV (18:36)
[2024-09-06 23:42] VITALS: BP 89/55
[2024-09-07] MEDS: MELATONIN 5 MG PO
[2024-09-07 06:00] VITALS: BMI 19.7
[2024-09-07] MEDS: MORPHINE SULFATE 1 MG IV ×4 (06:21→20:33)
[2024-09-07 07:42] LABS: % Basophils 0.8 % (0-2); % Eosinophils 3.4 % (0-6); % Immature Granulocytes 0.7 % (0-0.5); % Lymphocytes 47.2 % (20.5-51.1); % Monocytes 9.7 % (1.7-9.3); % Neutrophils 38.2 % (42.2-75.2); Absolute Basophils 0.1 10^3/uL (0-0.2); Absolute Eosinophils 0.2 10^3/uL (0-0.7); Absolute Immature Granulocytes 0.1 10^3/uL (0-0.05); Absolute Lymphocytes 3.3 10^3/uL (1.2-3.4); Absolute Monocytes 0.7 10^3/uL (0.1-0.6); Absolute Neutrophils 2.7 10^3/uL (1.4-6.5); Hematocrit 33.9 % (37.0-47.0); Hemoglobin 10.7 g/dL (12.0-16.0); Mean Corp Hgb Conc. 31.6 g/dL (33.0-37.0); Mean Corpuscular Volume 91.9 fL (81.0-99.0); Mean Platelet Volume 9.8 fL (7.4-10.4); Nucleated Red Blood Cells % 0 %; Platelet Count 440 10^3/uL (130-400); Red Blood Cell Count 3.69 10^6/uL (4.20-5.40); Red Cell Dist. Width 16.3 % (11.5-14.5); White Blood Cell Count 7.1 10^3/uL (4.8-10.8)
[2024-09-07] MEDS: OSCAL CAL 500 500 MG PO (07:47)
[2024-09-07] MEDS: PROTONIX 40 MG PO ×2 (07:47→20:35)
[2024-09-07] MEDS: ZOLOFT 100 MG PO (07:47)
[2024-09-07] MEDS: ProAmatine 5 MG PO ×3 (07:47→18:13)
[2024-09-07 07:55] VITALS: BP 89/57
[2024-09-07 07:58] LABS: Blood Urea Nitrogen 7 mg/dl (7-17); Calcium 8.3 mg/dl (8.4-10.2); Carbon Dioxide 27 mmol/L (22-30); Chloride 102 mmol/L (98-107); Estimated Creatinine Clearance 96 ml/min; Glucose 100 mg/dl (70-99); Potassium 4.4 mmol/L (3.5-5.1); Sodium 136 mmol/L (135-145); eGFR > 60.00
[2024-09-07] MEDS: LIDOCAINE 4% PATCH 1 PATCH TOPICAL (10:09)
--- NOTE | 2024-09-07 11:35 | W.PN.HOSP.TC ---
Today's Communication/Plan
-
check orthos
monitor BP/Midodrine
CT tomm/NPO PMN
OOB
Assessment / Plan
Assessment / Plan
#Loculated left-sided pleural effusion
- exudate
- CT placed- 09/01
- lytic therapy- 09/03
- repeat CXR 09/05- Hazy appearance in the left lower lobe appears increased compared to prior study, likely pleural effusion. There is probable compressive atelectasis on the left. Patchy airspace disease on the right may be atelectasis but
pneumonia cannot be excluded.
- repeat CT chest Interval left basilar chest tube placement. Redemonstration of moderate loculated left pleural effusion with associated compressive atelectasis. Interval resolution of anterior component of loculated fluid at the left lung base
with persistent slightly increased component posteriorly.
- s/p CT removal on 09/06 with plan for posterior location placement tomm by YANETH. NPO PMN.
- Pain control. Morphine prn/oxycodone
- appreciate pulm input
#Hypotension
-Started midodrine 5mg TID. Can increased dose if needed
-check orthostatics
#Neuroendocrine Tumor of the Ileum
- no adjuvant therapy at this time
- follow-up with Dr. Mandel of medical oncology regarding her carcinoid.
# Recent admission for Sepsis with intra-abdominal abscess, pneumoperitoneum on 08/05 requiring total abdominal colectomy with end ileostomy
-Monitor output from ileostomy
-Low Residue diet
-Continue pain control
#Abdominal Abscess
- Intra abdominal drain placed by IR on 08/15- able to be removed as now has minimal OP
- completed course of Augmentin->09/04
#IBS
- hold remicade
- Continue oxycodone 15 mg every 6 hours as needed severe pain
#Large degenerating fibroid
- Required an exploratory lap with total abdominal hysterectomy and bilateral salpingo-oophorectomy 08/05
- Follow-up with urogynecology outpatient
# GERD
- cont omeprazole
#Depression/Anxiety
- cont Zoloft
- cont prn ativan
#Underweight
-[facility] following. Encourage to increase po intake.
DVT prophylaxis
Subcu Lovenox
Anticipated Discharge: > 48 hours
Subjective/Interval History
-
Date of Service: September 07, 2024
remains with pain at previous CT site
Objective Data
-
Labs:
Laboratory Results
09/07/24
06:26
WBC 7.1
Hgb 10.7 L
Hct 33.9 L
Plt Count 440 H
Sodium 136
Potassium 4.4
Chloride 102
Carbon Dioxide 27
BUN 7
Creatinine 0.5 L
Glucose 100 H
Calcium 8.3 L
Vital Signs:
Vital Signs
Temp Pulse Resp BP Pulse Ox
98.7 F 75 14 89/57 97
09/07/24 07:55 09/07/24 07:55 09/07/24 07:55 09/07/24 07:55 09/07/24 07:55
I&O
09/06/24 09/07/24 09/08/24
06:59 06:59 06:59
Intake Total 480 / 480 670 / 670
Output Total 215 / 215 150 / 150 150 / 150
Balance 265 / 265 520 / 520 -150 / -150
Physical Exam
-
General: Appears Chronically Ill and Cachectic
HEENT: Normocephalic, Atraumatic and Moist Mucous Membranes
Respiratory: Clear to Auscultation
Cardiac: Regular Rhythm and S1/S2
GI: Soft, Nondistended, Tender and Ostomy (midline scar noted with lisandra. )
Rectal: Deferred by Provider
Musculoskeletal: No Edema
Skin: Warm and Dry
Neuro: Awake, Alert, Oriented and AO x 3
Psych: Calm
Data Reviewed
-
Total Time Spent with Patient (in minutes): 52
[2024-09-07] MEDS: TYLENOL 650 MG PO (12:52)
--- NOTE | 2024-09-07 14:15 | W.PN.PUL.V3 ---
Today's Communication / Plan
-
Chest tube removed 09/06/2024
Posterior collection noted on CT-IR contacted-plan for posterior located chest tube placement by IR 09/08/2024
Completed antibiotics-observe off antibiotics
Assessment
-
54-year-old female with a past medical history of inflammatory bowel disease with suspected ulcerative colitis, depression, and recent total abdominal hysterectomy/bilateral salpingo-oophorectomy on 08/05/2024 due to perforated viscus with
peritonitis and enlarged uterus with calcified leiomyoma who presents with chest pain and shortness of breath. She was given ASA 324 mg prior to arriving here to the [place] [facility]. She continues to have abdominal pain at prior laparoscopic sites.
In the ER she was afebrile to 99.8 �F, pulse rate 97, breathing at 25 breaths/minute, BP 122/90 and saturating 91% on room air. Initial labs showed WBC WNL at 9.2, Hb 10.7, platelets 749, and troponin negative at <0.012. Initial CXR showed
moderate left-sided pleural effusion with right lower lobe patchy opacities likely atelectasis. Subsequent CTA chest was negative for an acute PE and it showed moderate loculated left pleural effusion with a mild left lower lobe consolidation. She
was given Toradol 50 mg in the ER and then admitted to med-surg under the hospitalist with pulmonary consulted for additional management/recommendations.
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
Impression:
#Multiloculated pleural effusions on left hemithorax
#Perforated viscous with secondary peritonitis s/p recent MP/BSO on 08/05/2024 with incidentally discovered degenerating fibroid
#Chronic anemia
#Thrombocytosis likely reactive due to above
#Chronically elevated ALP
#Hx of IBD/UC with diffuse colitis seen on CT A/P from 07/26/2024 currently on Remicade
#Depression
#History of insomnia
Plan:
Respiratory status relatively stable
Wean FiO2-assess discharge supplemental oxygen needs prior to discharge
Aspiration precautions
Incentive spirometry encouraged
The patient currently has a left-sided loculated pleural effusion predominantly in the L base
She did have a small left-sided pleural effusion seen on the CT abdomen/pelvis from 07/26/2024 when she was diagnosed with diffuse colitis and then later found to have a perforated viscus with pneumoperitoneum + secondary peritonitis requiring
ex-lap on 08/05/2024 --> she was on ABx rec'd by ID as OR cultures were positive for MSSA, E. coli, strep + Klebsiella pneumonia and her hospital course at that time was complicated by intra-abdominal abscesses requiring percutaneous drainage with
abscess culture positive for Enterococcus faecalis, E. coli + Klebsiella pneumoniae --> continue with Augmentin that she was supposed to be on until 09/04/[address] abdomen/pelvis on 08/15/2024 showed a small sized left pleural effusion with a trace size right-sided pleural effusion
Possible intra-abdominal pathology that she had last month contributing to this left-sided pleural effusion which is now loculated
Dr. Cook reviewed her CT chest findings from 08/30/2024 with interventional radiology today with Dr. Mathias, and this likely LLL-effusion should be drained with a chest tube
s/p chest tube placement by IR 09/01/24
Repeat CXR 09/02/24 improved, may consider lytic dosing tonight and 24 hours observation post
Discussed case with IR, lytic therapy placed 09/03/24, 690mL output overnight
She does not wish to do again, repeat CXR this AM showing more patchy infiltrate but not definitely fluid
Output remains minimal ~15mL
CT chest 09/06/2024-interval left basilar chest tube, redemonstration of moderate loculated left pleural effusion with associated compressive atelectasis, interval resolution of anterior component of loculated pleural fluid with persistent slight
increased component posteriorly
Dr. Beck called Dr. Samano from IR 09/06/[address]-is there a role for repositioning chest tube posteriorly or placement of a new chest tube into loculated posterior collection or just removal of chest tube 09/06/2024
Chest tube removed 09/06/2024
Plan for IR chest tube placement posterior loculated fluid 09/08/2024
Fluid studies reviewed: pH 7.44 - glu 84 - tp 3.5 - LDH 299 -- indicating exudate
serum LDH 231 - TP 5.5
Parapneumonic fluid most likely-cultures negative and cytology negative for malignant cells
Completed antibiotics-observe off antibiotics
Follow radiographically
Pain control, reviewed with nursing
Breakthrough dosing increased in frequency
Replete electrolytes with K>4, Mg>2
Maintain euglycemia with goal BG >100 and <180
Outpatient follow up with Oncology for the well-differentiated neuroendocrine tumor seen on pathology from her terminal ileum/colon segmental resection from 08/05/2024
DVT ppx: LMWH
Pulmonary service will continue to follow along.
Data:
CXR 08/30/24- Moderate left-sided pleural effusion with associated compressive atelectasis. There are patchy opacities within the right lower lung, favoring atelectasis.
08/12/24- 1. Postoperative chest.
2. Hazy left lung opacity suggesting layering pleural fluid.
CTA Chest 08/30/2024:No evidence of pulmonary embolus. Moderate loculated left pleural effusion. Progressed. Mild left lower lobe consolidation probably atelectasis. Developing pneumonia not excluded. Stable. Findings consistent prior benign
granulomas disease. Stable
Subjective Data
-
Date of Service:
Date of Service: September 07, 2024
Chief Complaint: Pulmonary Follow Up and Dyspnea Follow Up
Subjective:
Sleepy, tired, no complaints of shortness of breath, chest tube removed
Review of Systems
General: Other (Per HPI)
Objective Data
Data Reviewed
Vital Signs / I&O:
Vital Signs
Temp Pulse Resp BP Pulse Ox
98.7 F 75 14 90/50 97
09/07/24 07:55 09/07/24 07:55 09/07/24 07:55 09/07/24 12:52 09/07/24 07:55
Intake and Output
09/06/24 09/07/24 09/08/24
06:59 06:59 06:59
Intake Total 480 / 480 670 / 670
Output Total 215 / 215 150 / 150 150 / 150
Balance 265 / 265 520 / 520 -150 / -150
SaO2: 97
Physical Exam
General: Respiratory Distress (n), Comfortable, Pain and Other (NAD)
HEENT: Normocephalic, Anicteric and Moist Mucous Membranes
Cardiovascular: Regular Rhythm
Respiratory: Clear, Non-Labored Respirations and Chest Tube
GI: Soft, Non Distended, Non Tender and Other (ostomy in place, JAXSON drain)
Neurology: Awake, Alert, Oriented and No Motor Deficits
Skin: Warm, Dry, Good Color, Cyanosis (n) and Jaundice (n)
Labs/Micro/Reports
Lab Data
09/07/24 06:26
09/07/24 06:26
Microbiology
09/01/24 11:50 Pleural Fluid Fungal Smear - Final
No yeast or fungal elements seen.
09/01/24 11:50 Pleural Fluid Fungal Culture - Preliminary
Culture in progress.
Positive cultures are reported as soon as detected.
Final report to follow in four to five weeks.
[2024-09-07 15:30] VITALS: BP 93/61
[2024-09-07] MEDS: ROXICODONE 15 MG PO ×2 (16:51→22:59)
[2024-09-07] MEDS: LOVENOX 40 MG SC (18:13)
[2024-09-07] MEDS: XANAX 0.25 MG PO (20:34)
[2024-09-07 23:32] VITALS: BP 85/59
[2024-09-08 06:00] VITALS: BMI 18.9
[2024-09-08] MEDS: ROXICODONE 15 MG PO ×3 (06:07→18:13)
[2024-09-08 07:30] VITALS: BP 92/58
[2024-09-08 07:50] LABS: % Eosinophils 2.4 % (0-6); % Immature Granulocytes 0.6 % (0-0.5); % Lymphocytes 42.5 % (20.5-51.1); % Monocytes 8.6 % (1.7-9.3); % Neutrophils 44.9 % (42.2-75.2); Absolute Basophils 0.1 10^3/uL (0-0.2); Absolute Eosinophils 0.2 10^3/uL (0-0.7); Absolute Lymphocytes 2.6 10^3/uL (1.2-3.4); Absolute Monocytes 0.5 10^3/uL (0.1-0.6); Absolute Neutrophils 2.8 10^3/uL (1.4-6.5); Hematocrit 34.4 % (37.0-47.0); Hemoglobin 10.3 g/dL (12.0-16.0); Mean Corp Hgb Conc. 29.9 g/dL (33.0-37.0); Mean Corpuscular Hgb 28.1 pg (27.0-31.0); Mean Corpuscular Volume 93.7 fL (81.0-99.0); Mean Platelet Volume 9.8 fL (7.4-10.4); Nucleated Red Blood Cells % 0 %; Platelet Count 455 10^3/uL (130-400); Red Blood Cell Count 3.67 10^6/uL (4.20-5.40); Red Cell Dist. Width 16.4 % (11.5-14.5); White Blood Cell Count 6.2 10^3/uL (4.8-10.8)
[2024-09-08 08:26] LABS: Blood Urea Nitrogen 9 mg/dl (7-17); Calcium 8.4 mg/dl (8.4-10.2); Carbon Dioxide 25 mmol/L (22-30); Chloride 103 mmol/L (98-107); Estimated Creatinine Clearance 92 ml/min; Glucose 88 mg/dl (70-99); Potassium 4.5 mmol/L (3.5-5.1); Sodium 137 mmol/L (135-145); eGFR > 60.00
[2024-09-08] MEDS: LIDOCAINE 4% PATCH 1 PATCH TOPICAL (08:49)
[2024-09-08] MEDS: OSCAL CAL 500 500 MG PO (08:49)
[2024-09-08] MEDS: ZOLOFT 100 MG PO (08:49)
[2024-09-08] MEDS: ProAmatine 5 MG PO ×3 (08:49→17:34)
[2024-09-08] MEDS: PROTONIX 40 MG PO ×2 (08:49→20:11)
[2024-09-08] MEDS: MORPHINE SULFATE 1 MG IV ×2 (10:53→20:10)
--- NOTE | 2024-09-08 11:53 | W.PN.PUL3 ---
Today's Communication / Plan
-
For left sided chest tube placement today
Daily chest x-ray
Continue to observe off antibiotic
Assessment
-
54-year-old female with a past medical history of inflammatory bowel disease with suspected ulcerative colitis, depression, and recent total abdominal hysterectomy/bilateral salpingo-oophorectomy on 08/05/2024 due to perforated viscus with
peritonitis and enlarged uterus with calcified leiomyoma who presents with chest pain and shortness of breath. She was given ASA 324 mg prior to arriving here to the [place] ER. She continues to have abdominal pain at prior laparoscopic sites.
In the ER she was afebrile to 99.8 �F, pulse rate 97, breathing at 25 breaths/minute, BP 122/90 and saturating 91% on room air. Initial labs showed WBC WNL at 9.2, Hb 10.7, platelets 749, and troponin negative at <0.012. Initial CXR showed
moderate left-sided pleural effusion with right lower lobe patchy opacities likely atelectasis. Subsequent CTA chest was negative for an acute PE and it showed moderate loculated left pleural effusion with a mild left lower lobe consolidation. She
was given Toradol 50 mg in the ER and then admitted to med-surg under the hospitalist with pulmonary consulted for additional management/recommendations.
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
Impression:
#Multiloculated pleural effusions on left hemithorax
#Perforated viscous with secondary peritonitis s/p recent MP/BSO on 08/05/2024 with incidentally discovered degenerating fibroid
#Chronic anemia
#Thrombocytosis likely reactive due to above
#Chronically elevated ALP
#Hx of IBD/UC with diffuse colitis seen on CT A/P from 07/26/2024 currently on Remicade
#Depression
#History of insomnia
Plan:
No changes in respiratory status overnight.
Wean FiO2-assess discharge supplemental oxygen needs prior to discharge
Left-sided loculated pleural effusion predominantly in the L base
She did have a small left-sided pleural effusion seen on the CT abdomen/pelvis from 07/26/2024 when she was diagnosed with diffuse colitis and then later found to have a perforated viscus with pneumoperitoneum + secondary peritonitis requiring
ex-lap on 08/05/2024 --> she was on ABx rec'd by ID as OR cultures were positive for MSSA, E. coli, strep + Klebsiella pneumonia and her hospital course at that time was complicated by intra-abdominal abscesses requiring percutaneous drainage with
abscess culture positive for Enterococcus faecalis, E. coli + Klebsiella pneumoniae --> continue with Augmentin that she was supposed to be on until 09/04/[address] abdomen/pelvis on 08/15/2024 showed a small sized left pleural effusion with a trace size right-sided pleural effusion
Possible intra-abdominal pathology that she had last month contributing to this left-sided pleural effusion which is now loculated
Fluid studies reviewed: pH 7.44 - glu 84 - tp 3.5 - LDH 299 -- indicating exudate
serum LDH 231 - TP 5.5
Parapneumonic fluid most likely-cultures negative and cytology negative for malignant cells
Completed antibiotics-observe off antibiotics
-
Dr. Cook reviewed her CT chest findings from 08/30/2024 with interventional radiology today with Dr. Mathias, and this likely LLL-effusion should be drained with a chest tube
s/p chest tube placement by IR 09/01/24
CXR 09/02/24 improved.
s/p IR lytic therapy placed 09/03/24, 690mL output overnight
She does not wish to do again.
Output remains minimal ~15mL
CT chest 09/06/2024-interval left basilar chest tube, redemonstration of moderate loculated left pleural effusion with associated compressive atelectasis, interval resolution of anterior component of loculated pleural fluid with persistent slight
increased component posteriorly
Dr. Beck called Dr. Samano from IR 09/06/[address]-is there a role for repositioning chest tube posteriorly or placement of a new chest tube into loculated posterior collection or just removal of chest tube 09/06/2024
Chest tube removed 09/06/2024
Plan for IR chest tube placement posterior loculated fluid 09/08/2024
-
Maintain euglycemia with goal BG >100 and <180
Outpatient follow up with Oncology for the well-differentiated neuroendocrine tumor seen on pathology from her terminal ileum/colon segmental resection from 08/05/2024
DVT ppx: LMWH
Pulmonary service will continue to follow along.
Data:
CXR 08/30/24- Moderate left-sided pleural effusion with associated compressive atelectasis. There are patchy opacities within the right lower lung, favoring atelectasis.
08/12/24- 1. Postoperative chest.
2. Hazy left lung opacity suggesting layering pleural fluid.
CTA Chest 08/30/2024:No evidence of pulmonary embolus. Moderate loculated left pleural effusion. Progressed. Mild left lower lobe consolidation probably atelectasis. Developing pneumonia not excluded. Stable. Findings consistent prior benign
granulomas disease. Stable
Subjective Data
-
Date of Service:
Date of Service: September 08, 2024
Chief Complaint: Pulmonary Follow Up and Dyspnea Follow Up
Subjective:
No new pulmonary complaints
Complaining of left-sided chest discomfort, left-sided upper abdominal discomfort.
Denies nausea or vomiting
Denies shortness of breath at rest
Scheduled for chest tube placement today
Review of Systems
General: Fever (n)
Cardiopulmonary: Dyspnea (none at rest)
GI: Abdominal Pain (n) and Nausea (n)
Objective Data
Data Reviewed
Vital Signs / I&O / Oxygen:
Vital Signs
Temp Pulse Resp BP Pulse Ox
98.9 F 84 16 92/58 94
09/08/24 07:30 09/08/24 07:30 09/08/24 07:30 09/08/24 07:30 09/08/24 07:30
Intake and Output
09/07/24 09/08/24 09/09/24
06:59 06:59 06:59
Intake Total 670 / 670 1080 / 1080
Output Total 150 / 150 650 / 650
Balance 520 / 520 430 / 430
SaO2 94
Physical Exam
General: Respiratory Distress (n), Comfortable, Pain and Other (NAD)
HEENT: Normocephalic, Anicteric and Moist Mucous Membranes
Cardiovascular: Regular Rhythm
Respiratory: Clear, Non-Labored Respirations and Chest Tube
GI: Soft, Non Distended, Tender (Left-sided, no peritoneal signs) and Other (ostomy in place, JAXSON drain)
Neurology: Awake, Alert, Oriented and No Motor Deficits
Skin: Warm, Dry, Good Color, Cyanosis (n) and Jaundice (n)
Labs/Micro/Reports
Lab Data
09/08/24 06:40
09/08/24 06:40
Microbiology
09/01/24 11:50 Pleural Fluid Fungal Smear - Final
No yeast or fungal elements seen.
09/01/24 11:50 Pleural Fluid Fungal Culture - Preliminary
Culture in progress.
Positive cultures are reported as soon as detected.
Final report to follow in four to five weeks.
--- NOTE | 2024-09-08 12:00 | WOUNDNOTE ---
JAYCEE RN NOTE: Nursing requested further teaching regarding emptying and ostomy care. Patient ambulated self to BR using walker and had patient empty pouch while sitting on toilet, with return demonstration. Patient then ambulated in hallway with PT.
She got back to bed, on air overlay, Sacrum is intact. Changed appliance with patient assisting. Patient starting to accept responsibility for ostomy care, although still upset about the smell and cleaning up stool. Support and encouragement given.
Patient able to assist with cleaning stoma which is pink, oval and slightly budded. Peristomal skin is much improved since last seen, no more red irritated skin. Patient applied powder to peristomal skin, patted with skin prep, cut out convex wafer,
secured Flora seal and applied with guided assist. Snapped on pouch making sure tail end pointed towards groin for easy emptying on toilet. Had patient snap on upper part of pouch and instructed can snap wafer and pouch together ahead of time, if
easier to apply. Patient aware next pouch change is or Sunday. Additional supplies ordered from [facility] and will bring additional convex wafers # [id number] with barrier extenders this afternoon. Please continue to encourage patient to empty during
the day and change next pouch with assistance if needed. Patient for Chest Tube insertion today. Nurse Ros made aware of the above.
[2024-09-08 15:30] VITALS: BP 94/60
--- NOTE | 2024-09-08 15:42 | CM ---
CM met with Kacey at bedside prior to going to IR for a chest tube.
Kacey has recently been at [facility] and was admitted to due to chest pain which she understands is due to fluid in her lungs that needs to be drained. Support offered.
CM will continue to follow for pt's return to [facility] when medically stable.
Plan: Return to [facility] for continued rehabilitation and ostomy teaching.
[facility] Report: [phone]
[facility]
[2024-09-08 16:00] VITALS: BP 93/68; BP_SYST 74
[2024-09-08 16:50] VITALS: BP 93/71; BP_SYST 108
[2024-09-08 17:03] VITALS: BP 93/71
--- NOTE | 2024-09-08 17:13 | W.PN.HOSP.TC ---
Addendum entered and electronically signed by Dell Guzman MD 09/08/24 23:58:
Attending Addendum-
I saw and evaluated the patient. I reviewed the resident�s note and agree with findings and plan as documented in the resident�s note. Sub: Feels improved. denies pain. Denies SOB/CP/palps. Full 12 point ROS reviewed and negative except as
documented Exam: Vitals reviewed in chart GEN-NAD heart RRR lungs decreased BS LLLabd soft + ileostomy incision CDI lisandra in place LE no edema
Plan:
# Multi-Loculated left-sided pleural effusion
- CT placed- 09/01 DC'd 09/06
- lytic therapy- 09/03
- CT to be posteriorly placed today 09/08 by IRAD due to persistent post loculated effusion
# Hypotension
- cont midodrine
#Neuroendocrine Tumor of the Ileum
- no adjuvant therapy at this time
- follow-up with Dr. Mandel of medical oncology regarding her carcinoid.
# Recent admission for Sepsis with intra-abdominal abscess, pneumoperitoneum on 08/05 requiring total abdominal colectomy with end ileostomy
-Monitor output from ileostomy
-Low Residue diet
- remove lisandra
-Continue pain control
#Abdominal Abscess
- Intra abdominal drain placed by IR on 08/15
- DC JAXSON drain 09/06
- completed course of Augmentin->09/04
#IBS
- hold remicade
- Continue oxycodone 15 mg every 6 hours as needed severe pain
#Large degenerating fibroid
- Required an exploratory lap with total abdominal hysterectomy and bilateral salpingo-oophorectomy 08/05
- Follow-up with urogynecology outpatient
# GERD
- cont omeprazole
#Depression/Anxiety
- cont increased Zoloft
- cont prn ativan
DVT prophylaxis
Subcu Lovenox
Dispo- DC back to [facility] when able
Time spent coordinating care, review of plan of care with resident, personally reviewed records in EMR, med rec, consults, notes, labs, radiology, d/w nursing, pulm � 55 mins
Original Note:
Today's Communication/Plan
-
Follow-up with pulmonology about chest tube
Assessment / Plan
Assessment / Plan
removed lisandra from abdominal incision site
Loculated left-sided pleural effusion
-repeat CT chest shows moderate loculated left pleural effusion with associated compressive atelectasis, Interval resolution of anterior component of loculated fluid at the left lung base with persistent slightly increased component posteriorly
09/08
- staus post chest tube removal on 09/06 with plan for posterior location placement today on 09/08 by IRAD.
- Pain control. Morphine prn/oxycodone
- exudate
- CT placed- 09/01
- lytic therapy- 09/03
- repeat CXR 09/05- Hazy appearance in the left lower lobe appears increased compared to prior study, likely pleural effusion. There is probable compressive atelectasis on the left. Patchy airspace disease on the right may be atelectasis but
pneumonia cannot be excluded.
- appreciate pulm input
Hypotension
-Started midodrine 5mg TID
-check orthostatics
Neuroendocrine Tumor of the Ileum
- no adjuvant therapy at this time
- follow-up with Dr. Mandel of medical oncology regarding her carcinoid.
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
-Monitor output from ileostomy
-Low Residue diet
-Continue pain control
Abdominal Abscess
- Intra abdominal drain placed by IR on 08/15- able to be removed as now has minimal OP
- completed course of Augmentin->09/04
IBS
- hold remicade
- Continue oxycodone 15 mg every 6 hours as needed severe pain
Large degenerating fibroid
- Required an exploratory lap with total abdominal hysterectomy and bilateral salpingo-oophorectomy 08/05
- Follow-up with urogynecology outpatient
GERD
- cont omeprazole
Depression/Anxiety
- cont Zoloft
- cont prn ativan
Underweight
-Braid Folder following. Encourage to increase po intake.
DVT prophylaxis
Subcu Lovenox
Anticipated Discharge: 24 - 48 hours
Subjective/Interval History
-
Date of Service: September 08, 2024
No acute overnight events
Pain at the site of the chest tube removal, abdominal pain.
Objective Data
-
Labs:
Laboratory Results
09/08/24
06:40
WBC 6.2
Hgb 10.3 L
Hct 34.4 L
Plt Count 455 H
Sodium 137
Potassium 4.5
Chloride 103
Carbon Dioxide 25
BUN 9
Creatinine 0.5 L
Glucose 88
Calcium 8.4
Vital Signs:
Vital Signs
Temp Pulse Resp BP Pulse Ox
98.2 F 108 14 93/71 96
09/08/24 16:00 09/08/24 17:03 09/08/24 17:03 09/08/24 17:03 09/08/24 16:50
I&O
09/07/24 09/08/24 09/09/24
06:59 06:59 06:59
Intake Total 670 / 670 1080 / 1080
Output Total 150 / 150 650 / 650
Balance 520 / 520 430 / 430
Review of Systems
-
History Source: Patient
Constitutional: Reports Fatigue; Denies Fever or Sleep Disturbance
Respiratory: Denies Cough or Trouble Breathing
Cardiac: Denies Chest Pain, Palpitations, Syncope, PND or Orthopnea
Abdomen/GI: Reports Abdominal Pain; Denies Nausea, Vomiting, Diarrhea or Constipated
Musculoskeletal: Denies Joint Pain
Physical Exam
-
General: Appears Chronically Ill
Respiratory: Clear to Auscultation
Cardiac: Regular Rhythm and S1/S2
GI: Tender (Generalized but more so on the left side) and Ostomy
Skin: Warm and Dry
Neuro: Awake, Alert, Oriented and AO x 3
Data Reviewed
-
Medical Tests (Nuc Med, Echo etc): Image personally visualized and interpreted and Discussed with Physician
Labs: Labs Reviewed by me and Discussed with Physician
[2024-09-08] MEDS: LOVENOX 40 MG SC (17:34)
--- NOTE | 2024-09-08 17:56 | PTCARENOTE ---
Patient returned from IR with Chest Tube right sided posterior. 60 mls of straw colored drainage in pleurovac. Connected to -20cm wall suction. Patient denies complaints at this time. No air leak or crepitus noted.
[2024-09-08] MEDS: XANAX 0.25 MG PO (20:10)
[2024-09-08 23:52] VITALS: BP 99/69
[2024-09-09] MEDS: ROXICODONE 15 MG PO ×4 (00:43→22:02)
[2024-09-09] MEDS: MELATONIN 5 MG PO (00:43)
[2024-09-09] MEDS: MORPHINE SULFATE 1 MG IV (05:39)
[2024-09-09 06:00] VITALS: BMI 18.8
[2024-09-09 06:59] VITALS: BP 82/59
--- NOTE | 2024-09-09 07:38 | W.PN.HOSP.TC ---
Addendum entered and electronically signed by Dell Guzman MD 09/09/24 22:16:
Attending Addendum-
I saw and evaluated the patient. I reviewed the resident�s note and agree with findings and plan as documented in the resident�s note. Sub: has pain@ post CT site but controlled with pain meds. Denies SOB/CP/palps. Full 12 point ROS reviewed and
negative except as documented Exam: Vitals reviewed in chart GEN-NAD heart RRR lungs decreased BS LLL, post CT in place abd soft + ileostomy incision CDI LE no edema
Plan:
# Multi-Loculated left-sided pleural effusion
- CT placed- 09/01 DC'd 09/06
- lytic therapy- 09/03
- CT posteriorly placed on 09/08
- monitor CT output closely
- serial cxrs- personally reviewed- modest improvement of known loculated left pleural effusion.
# Hypotension
- cont midodrine
#Neuroendocrine Tumor of the Ileum
- no adjuvant therapy at this time
- follow-up with Dr. Mandel as OP.
# Recent admission for Sepsis with intra-abdominal abscess, pneumoperitoneum on 08/05 requiring total abdominal colectomy with end ileostomy
-Monitor output from ileostomy
-Low Residue diet
-stples removed
-Continue pain control
#Abdominal Abscess
- resolved
- drain placed on 08/15
- DC JAXSON drain 09/06
- completed course of Augmentin->09/04
#IBS
- hold remicade
#Large degenerating fibroid
- Required an exploratory lap with total abdominal hysterectomy and bilateral salpingo-oophorectomy 08/05
- Follow-up with urogynecology outpatient
# GERD
- cont omeprazole
#Depression/Anxiety
- cont increased Zoloft
- cont prn ativan
DVT prophylaxis
Subcu Lovenox
Dispo- DC back to [facility] when able
Time spent coordinating care, review of plan of care with resident, personally reviewed records in EMR, med rec, consults, notes, labs, radiology, d/w nursing, pulm � 58 mins
Original Note:
Today's Communication/Plan
-
- Follow serial x ray scans and follow up with pulmonology
- Keep checking to see if her pain is adequately controlled
Assessment / Plan
Assessment / Plan
Loculated left-sided pleural effusion
- Chest tube is draining serous fluid, 120 ml from 6 pm to 10 am in the morning 09/09
- Xray shows modest improvement of loculated left pleural effusion 09/09
- Per pulmonology, Chest xray AP and lateral view tomorrow, with an eventual CT scan of chest, 09/09
-repeat CT chest shows moderate loculated left pleural effusion with associated compressive atelectasis, Interval resolution of anterior component of loculated fluid at the left lung base with persistent slightly increased component posteriorly
09/08
- staus post chest tube removal on 09/06 with plan for posterior location placement today on 09/08 by IRAD.
- Pain control. Morphine prn/oxycodone
- exudate
- CT placed- 09/01
- lytic therapy- 09/03
- repeat CXR 09/05- Hazy appearance in the left lower lobe appears increased compared to prior study, likely pleural effusion. There is probable compressive atelectasis on the left. Patchy airspace disease on the right may be atelectasis but
pneumonia cannot be excluded.
- appreciate pulm input
Hypotension
- todays BP is 94/64, 09/09
-continue midodrine 5mg TID
-check orthostatics
Neuroendocrine Tumor of the Ileum
- no adjuvant therapy at this time
- follow-up with Dr. Mandel of medical oncology regarding her carcinoid.
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
- Patient changed to a regular diet 09/09
- lisandra removed 09/09
-Monitor output from ileostomy
-Continue pain control
Abdominal Abscess
- Intra abdominal drain placed by IR on 08/15- able to be removed as now has minimal OP
- completed course of Augmentin->09/04
IBS
- hold remicade
- Continue oxycodone 15 mg every 6 hours as needed severe pain
Large degenerating fibroid
- Required an exploratory lap with total abdominal hysterectomy and bilateral salpingo-oophorectomy 08/05
- Follow-up with urogynecology outpatient
GERD
- cont omeprazole
Depression/Anxiety
- cont Zoloft
- cont prn ativan
Underweight
-Products Mechanical Design Engineer following. Encourage to increase po intake.
DVT prophylaxis
Subcu Lovenox
Anticipated Discharge: 24 - 48 hours
Subjective/Interval History
-
Date of Service: September 09, 2024
No overnight events
No acute medical problems
Chest tube is draining 120 ml of fluid since 6 pm last night to 10 am this morning, serous in appearance.
Objective Data
-
Labs:
Laboratory Results
09/09/24
06:00
WBC Pending
Hgb Pending
Hct Pending
Plt Count Pending
Sodium Pending
Potassium Pending
Chloride Pending
Carbon Dioxide Pending
BUN Pending
Creatinine Pending
Glucose Pending
Calcium Pending
Vital Signs:
Vital Signs
Temp Pulse Resp BP Pulse Ox
98.3 F 76 16 99/69 94
09/08/24 23:52 09/08/24 23:52 09/08/24 23:52 09/08/24 23:52 09/08/24 23:52
I&O
09/08/24 09/09/24 09/10/24
06:59 06:59 06:59
Intake Total 1080 / 1080 840 / 840
Output Total 650 / 650 331 / 331
Balance 430 / 430 509 / 509
Review of Systems
-
History Source: Patient
Constitutional: Denies Fever or Fatigue
Respiratory: Denies Cough, Hemoptysis or Trouble Breathing
Cardiac: Denies Chest Pain, Palpitations, Syncope or PND
Abdomen/GI: Denies Nausea, Vomiting, Diarrhea or Constipated
Musculoskeletal: Denies Joint Pain or Joint Swelling
Neuro: Denies Dizzy, Headache or Weakness
Physical Exam
-
General: Appears Chronically Ill
Respiratory: Decreased Breath Sounds (on the left lower base)
Cardiac: Regular Rhythm and S1/S2
GI: Soft and Tender (slight tenderness on the left side)
Musculoskeletal: No Edema
Skin: Warm and Dry
Neuro: Awake, Alert, Oriented and AO x 3
Data Reviewed
-
Medical Tests (Nuc Med, Echo etc): Image personally visualized and interpreted and Discussed with Physician
Labs: Labs Reviewed by me and Discussed with Physician
[2024-09-09 08:40] LABS: % Basophils 0.5 % (0-2); % Eosinophils 2.3 % (0-6); % Immature Granulocytes 0.5 % (0-0.5); % Lymphocytes 39.1 % (20.5-51.1); % Monocytes 8.7 % (1.7-9.3); % Neutrophils 48.9 % (42.2-75.2); Absolute Eosinophils 0.1 10^3/uL (0-0.7); Absolute Lymphocytes 2.2 10^3/uL (1.2-3.4); Absolute Monocytes 0.5 10^3/uL (0.1-0.6); Absolute Neutrophils 2.8 10^3/uL (1.4-6.5); Hematocrit 34.8 % (37.0-47.0); Hemoglobin 10.7 g/dL (12.0-16.0); Mean Corp Hgb Conc. 30.7 g/dL (33.0-37.0); Mean Corpuscular Hgb 28.8 pg (27.0-31.0); Mean Corpuscular Volume 93.5 fL (81.0-99.0); Mean Platelet Volume 9.4 fL (7.4-10.4); Nucleated Red Blood Cells % 0 %; Platelet Count 486 10^3/uL (130-400); Red Blood Cell Count 3.72 10^6/uL (4.20-5.40); Red Cell Dist. Width 16.2 % (11.5-14.5); White Blood Cell Count 5.7 10^3/uL (4.8-10.8)
[2024-09-09 08:56] LABS: Blood Urea Nitrogen 9 mg/dl (7-17); Calcium 8.7 mg/dl (8.4-10.2); Carbon Dioxide 26 mmol/L (22-30); Chloride 101 mmol/L (98-107); Estimated Creatinine Clearance 92 ml/min; Glucose 98 mg/dl (70-99); Potassium 4.9 mmol/L (3.5-5.1); Sodium 136 mmol/L (135-145); eGFR > 60.00
[2024-09-09] MEDS: ProAmatine 5 MG PO ×3 (09:27→17:59)
[2024-09-09] MEDS: PROTONIX 40 MG PO ×2 (09:27→21:04)
[2024-09-09] MEDS: ZOLOFT 100 MG PO (09:28)
[2024-09-09] MEDS: OSCAL CAL 500 500 MG PO (09:28)
[2024-09-09] MEDS: LIDOCAINE 4% PATCH 1 PATCH TOPICAL (09:34)
--- NOTE | 2024-09-09 12:30 | W.PN.PUL3 ---
Today's Communication / Plan
-
Follow chest tube output
Monitor off antibiotic
Chest x-ray AP and lateral tomorrow
Eventual repeat CT chest
Assessment
-
54-year-old female with a past medical history of inflammatory bowel disease with suspected ulcerative colitis, depression, and recent total abdominal hysterectomy/bilateral salpingo-oophorectomy on 08/05/2024 due to perforated viscus with
peritonitis and enlarged uterus with calcified leiomyoma who presents with chest pain and shortness of breath. She was given ASA 324 mg prior to arriving here to the [place] [facility]. She continues to have abdominal pain at prior laparoscopic sites.
In the ER she was afebrile to 99.8 �F, pulse rate 97, breathing at 25 breaths/minute, BP 122/90 and saturating 91% on room air. Initial labs showed WBC WNL at 9.2, Hb 10.7, platelets 749, and troponin negative at <0.012. Initial CXR showed
moderate left-sided pleural effusion with right lower lobe patchy opacities likely atelectasis. Subsequent CTA chest was negative for an acute PE and it showed moderate loculated left pleural effusion with a mild left lower lobe consolidation. She
was given Toradol 50 mg in the ER and then admitted to med-surg under the hospitalist with pulmonary consulted for additional management/recommendations.
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
Impression:
#Multiloculated pleural effusions on left hemithorax
#Perforated viscous with secondary peritonitis s/p recent MP/BSO on 08/05/2024 with incidentally discovered degenerating fibroid
#Chronic anemia
#Thrombocytosis likely reactive due to above
#Chronically elevated ALP
#Hx of IBD/UC with diffuse colitis seen on CT A/P from 07/26/2024 currently on Remicade
#Depression
#History of insomnia
Plan:
No changes in respiratory status overnight.
Afebrile
Left chest/upper abdomen pain resolved.
Left-sided loculated pleural effusion predominantly in the L base
She did have a small left-sided pleural effusion seen on the CT abdomen/pelvis from 07/26/2024 when she was diagnosed with diffuse colitis and then later found to have a perforated viscus with pneumoperitoneum + secondary peritonitis requiring
ex-lap on 08/05/2024 --> she was on ABx rec'd by ID as OR cultures were positive for MSSA, E. coli, strep + Klebsiella pneumonia and her hospital course at that time was complicated by intra-abdominal abscesses requiring percutaneous drainage with
abscess culture positive for Enterococcus faecalis, E. coli + Klebsiella pneumoniae --> status post Augmentin.
CT abdomen/pelvis on 08/15/2024 showed a small sized left pleural effusion with a trace size right-sided pleural effusion
Possible intra-abdominal pathology that she had last month contributing to this left-sided pleural effusion which is now loculated
Fluid studies reviewed: pH 7.44 - glu 84 - tp 3.5 - LDH 299 -- indicating exudate
serum LDH 231 - TP 5.5. Normal amylase and triglycerides.
Parapneumonic fluid most likely-cultures negative and cytology negative for malignant cells
Completed antibiotics-observe off antibiotics
-
Dr. Cook reviewed her CT chest findings from 08/30/2024 with interventional radiology today with Dr. Mathias, and this likely LLL-effusion should be drained with a chest tube
s/p chest tube placement by IR 09/01/24
CXR 09/02/24 improved.
s/p IR lytic therapy placed 09/03/24, 690mL output overnight
She does not wish to do again.
Output remains minimal ~15mL
CT chest 09/06/2024-interval left basilar chest tube, redemonstration of moderate loculated left pleural effusion with associated compressive atelectasis, interval resolution of anterior component of loculated pleural fluid with persistent slight
increased component posteriorly
Dr. Beck called Dr. Samano from IR 09/06/[address]-is there a role for repositioning chest tube posteriorly or placement of a new chest tube into loculated posterior collection or just removal of chest tube 09/06/2024
Chest tube removed 09/06/2024
New chest tube placed on posterior left lung posterior loculated pleural effusion 09/08/2024-total output around 150 cc overnight-appears serous.
Repeat chest x-ray AP and lateral 09/09/2024: Showed improvement, no pneumothorax. Chest tube in adequate position.
Monitor chest tube output
Daily chest x-ray AP and lateral
Eventual CT of the chest
-
Maintain euglycemia with goal BG >100 and <180
Outpatient follow up with Oncology for the well-differentiated neuroendocrine tumor seen on pathology from her terminal ileum/colon segmental resection from 08/05/2024
DVT ppx: LMWH
Pulmonary service will continue to follow along.
Data:
CXR 08/30/24- Moderate left-sided pleural effusion with associated compressive atelectasis. There are patchy opacities within the right lower lung, favoring atelectasis.
08/12/24- 1. Postoperative chest.
2. Hazy left lung opacity suggesting layering pleural fluid.
CTA Chest 08/30/2024:No evidence of pulmonary embolus. Moderate loculated left pleural effusion. Progressed. Mild left lower lobe consolidation probably atelectasis. Developing pneumonia not excluded. Stable. Findings consistent prior benign
granulomas disease. Stable
Subjective Data
-
Date of Service:
Date of Service: September 09, 2024
Chief Complaint: Pulmonary Follow Up and Dyspnea Follow Up
Subjective:
No new complaints
Denies significant phlegm production or hemoptysis
Denies any chest pain.
Review of Systems
General: Fever (n)
Cardiopulmonary: Dyspnea (none at rest)
GI: Abdominal Pain (n) and Nausea (n)
Neuro: Headache (n)
Objective Data
Data Reviewed
Vital Signs / I&O / Oxygen:
Vital Signs
Temp Pulse Resp BP Pulse Ox
98.4 F 76 22 90/50 97
09/09/24 06:59 09/09/24 06:59 09/09/24 06:59 09/09/24 09:27 09/09/24 06:59
Intake and Output
09/08/24 09/09/24 09/10/24
06:59 06:59 06:59
Intake Total 1080 / 1080 840 / 840
Output Total 650 / 650 331 / 331
Balance 430 / 430 509 / 509
SaO2 97
Physical Exam
General: Respiratory Distress (n), Comfortable, Pain and Other (NAD)
HEENT: Normocephalic, Anicteric and Moist Mucous Membranes
Cardiovascular: Regular Rhythm
Respiratory: Clear, Non-Labored Respirations and Chest Tube
GI: Soft, Non Distended, Tender (Left-sided, no peritoneal signs) and Other (ostomy in place, JAXSON drain)
Neurology: Awake, Alert, Oriented and No Motor Deficits
Skin: Warm, Dry, Good Color, Cyanosis (n) and Jaundice (n)
Labs/Micro/Reports
Lab Data
09/09/24 07:42
09/09/24 07:42
Microbiology
09/08/24 16:50 Pleural Fluid Body Fluid Culture - Preliminary
No Growth After 18-24 Hours
09/08/24 16:50 Pleural Fluid Gram Stain - Preliminary
09/01/24 11:50 Pleural Fluid Fungal Smear - Final
No yeast or fungal elements seen.
09/01/24 11:50 Pleural Fluid Fungal Culture - Preliminary
Culture in progress.
Positive cultures are reported as soon as detected.
Final report to follow in four to five weeks.
[2024-09-09] MEDS: TYLENOL 650 MG PO ×2 (13:16→21:04)
--- NOTE | 2024-09-09 15:02 | WOUNDNOTE ---
WON RN NOTE: Asked to see patient by nurse Canela who reports pouch leaking medially. Today higher output and liquid manzano fluid. Peristomal skin with mild pink skin, fungal powder applied then skin prep, patient assisted and with cutting out wafer.
Used same convex 2 3/4' wafer with Flora seal and Flora paste just on outside of ring. Used 2 3/4' high output Pete pouch # [id number]. Showed patient how to empty and she was able to open and close end. Given an attachment drainage system if bag
becomes too heavy, showed how to attach. Nurse Canela at bedside for teaching and assisted with care. Patient measured for a belt and applied. Showed how to adjust belt for secure fit. Additional high output pouch and wafer are at bedside. If this
system works better for patient can bring additional supplies as needed.
[2024-09-09 15:25] VITALS: BP 94/62
--- NOTE | 2024-09-09 16:10 | PN.CDI ---
CDI
- -
CDI:
Physician Documentation Request
Admit Date: 08/30/24 16:47
Dear Doctor Thomas/Resident,
Please review the following and provide your response in the progress notes.
Clinical Indicators:
Pt admitted with loculated pleural effusion
Documented in the record Cachexia/Underweight /BMI 18.8
Nutrition note 09/08 @ 1215, ' Po intake was variable and fair averaging 61% of meals. Pt with varied intakes last admission as well. CBW: 120lb 8oz BMI 18.9 low normal wt/ht (09/08), 124 lbs 5 oz (09/05)Weight 08/01/24 was 152 lbs and on d/c 08/26
138 lbs both on bed scales. Significant 15% wt loss noted over the past monthof admissions....Pt meets ASPEN criteria for severe protein calorie malnutrition of chronic illness with >5% weight loss over 1 month, prolonged inadequate energy intake
<75% x 1 month. Encourage continued increased intakes of meals and consume supplement as tolerated....'
Based on the above information and your assessment, which of the following most accurately represents the patient's nutritional status?
Severe Protein Calorie Malnutrition
Other (please specify)
[place] Criteria ([facility] Hospitalist 2017)
2 or more criteria must be present for either
non severe or severe malnutrition
Note that the criteria differs related to the
presence of an acute or chronic illness
Acute Illness Chronic Illness
Energy Intake Non Severe: <75% for >7 days Non Severe: <75% for >1 month
Severe: <50% for >5 days Severe: <75% for >1 month
Weight Loss Non Severe: 1-2% over 1 week Non Severe: 5% over 1 month
5% over 1 month 7.5% over 3 months
7.5% over 3 months 10% over 6 months
1 year N/A 20% over 1 year
Severe: >2% over 1 week Severe: >5% over 1 month
>5% over 1 month >7.5% over 3 months
>7.5% over 3 months >10% over 6 months
1 year N/A >20% over 1 year
Body Fat Non Severe: Mild Decrease Non Severe: Mild Loss
Severe: Moderate Decrease Severe: Severe Loss
Muscle Mass Non Severe: Mild Decrease Non Severe: Mild Loss
Severe: Moderate Decrease Severe: Severe Loss
Fluid Accumulation Non Severe: Mild Accumulation Non Severe: Mild Accumulation
Severe: Moderate to severe Severe: Moderate to severe
accumulation accumulation
Reduced Pilot Plant Technician Strength Non Severe: N/A Non Severe: N/A
Severe: Measurably reduced Severe: Measurably reduced
Use of terms such as suspected, likely, concern for, or probable (associated with a specific diagnosis that is being evaluated, monitored, or treated as if it exists) are acceptable and can be coded in the inpatient setting, when documented at the
time of discharge.
Thank you,
Carole Ochoa RN
CDI Specialist
[place] [employer]
Please use your independent medical judgment in providing your response.
[2024-09-09 16:18] VITALS: PULSE 72; O2SAT 97
[2024-09-09] MEDS: LOVENOX 40 MG SC (17:59)
[2024-09-09] MEDS: XANAX 0.25 MG PO (21:04)
[2024-09-09 23:26] VITALS: BP 88/58
[2024-09-10] MEDS: MELATONIN 5 MG PO (00:31)
--- NOTE | 2024-09-10 03:58 | DOWNTIME ---
There was a [employer]er [employer] Repairer Downtime on 09/10/2024 from 0100 to 09/10/2024 at 0350. Downtime documentation of patient's care, including medication administrations, has been reconciled in the electronic record per guidelines. Refer to the
patient's paper chart under the miscellaneous tab to see printed paper medication records and downtime forms.
[2024-09-10 06:00] VITALS: BMI 19.6
[2024-09-10 07:25] VITALS: BP 100/70
[2024-09-10 08:07] LABS: % Basophils 1.5 % (0-2); % Eosinophils 5.2 % (0-6); % Immature Granulocytes 0.6 % (0-0.5); % Lymphocytes 49.4 % (20.5-51.1); % Monocytes 7.9 % (1.7-9.3); % Neutrophils 35.4 % (42.2-75.2); Absolute Basophils 0.1 10^3/uL (0-0.2); Absolute Eosinophils 0.3 10^3/uL (0-0.7); Absolute Lymphocytes 2.4 10^3/uL (1.2-3.4); Absolute Monocytes 0.4 10^3/uL (0.1-0.6); Absolute Neutrophils 1.7 10^3/uL (1.4-6.5); Hematocrit 36.9 % (37.0-47.0); Hemoglobin 11.6 g/dL (12.0-16.0); Mean Corp Hgb Conc. 31.4 g/dL (33.0-37.0); Mean Corpuscular Hgb 28.9 pg (27.0-31.0); Mean Platelet Volume 9.3 fL (7.4-10.4); Nucleated Red Blood Cells % 0 %; Platelet Count 559 10^3/uL (130-400); Red Blood Cell Count 4.01 10^6/uL (4.20-5.40); Red Cell Dist. Width 16.3 % (11.5-14.5); White Blood Cell Count 4.8 10^3/uL (4.8-10.8)
[2024-09-10 09:05] LABS: Blood Urea Nitrogen 7 mg/dl (7-17); Calcium 8.9 mg/dl (8.4-10.2); Carbon Dioxide 28 mmol/L (22-30); Chloride 102 mmol/L (98-107); Estimated Creatinine Clearance 96 ml/min; Glucose 106 mg/dl (70-99); Potassium 4.8 mmol/L (3.5-5.1); Sodium 137 mmol/L (135-145); eGFR > 60.00
[2024-09-10] MEDS: ProAmatine 5 MG PO ×3 (09:14→17:43)
[2024-09-10] MEDS: ZOLOFT 100 MG PO (09:14)
[2024-09-10] MEDS: PROTONIX 40 MG PO ×2 (09:14→19:40)
[2024-09-10] MEDS: OSCAL CAL 500 500 MG PO (09:14)
[2024-09-10] MEDS: ROXICODONE 15 MG PO ×2 (09:15→17:43)
[2024-09-10] MEDS: LIDOCAINE 4% PATCH 1 PATCH TOPICAL (09:49)
--- NOTE | 2024-09-10 11:15 | WOUNDNOTE ---
WO RN note: Gave JOSEFINA Gomes more ostomy supplies for patient who will place in patient's room. Nursing can assist patient with twice a week ileostomy appliance changes. JOSEFINA Canela stated she is here on Sunday for next appliance change and will
change or assist nurse on Sunday with next appliance change.
--- NOTE | 2024-09-10 12:11 | W.PN.PUL3 ---
Today's Communication / Plan
-
Repeat chest x-ray
Maintain chest tube for today
Will discuss with IR whether based on chest x-ray and decreased output chest tube can be discontinued in the next 1 [address] of the chest will be needed.
Assessment
-
54-year-old female with a past medical history of inflammatory bowel disease with suspected ulcerative colitis, depression, and recent total abdominal hysterectomy/bilateral salpingo-oophorectomy on 08/05/2024 due to perforated viscus with
peritonitis and enlarged uterus with calcified leiomyoma who presents with chest pain and shortness of breath. She was given ASA 324 mg prior to arriving here to the [facility]. She continues to have abdominal pain at prior laparoscopic sites.
In the ER she was afebrile to 99.8 �F, pulse rate 97, breathing at 25 breaths/minute, BP 122/90 and saturating 91% on room air. Initial labs showed WBC WNL at 9.2, Hb 10.7, platelets 749, and troponin negative at <0.012. Initial CXR showed
moderate left-sided pleural effusion with right lower lobe patchy opacities likely atelectasis. Subsequent CTA chest was negative for an acute PE and it showed moderate loculated left pleural effusion with a mild left lower lobe consolidation. She
was given Toradol 50 mg in the ER and then admitted to med-surg under the hospitalist with pulmonary consulted for additional management/recommendations.
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
Impression:
#Multiloculated pleural effusions on left hemithorax
#Perforated viscous with secondary peritonitis s/p recent MP/BSO on 08/05/2024 with incidentally discovered degenerating fibroid
#Chronic anemia
#Thrombocytosis likely reactive due to above
#Chronically elevated ALP
#Hx of IBD/UC with diffuse colitis seen on CT A/P from 07/26/2024 currently on Remicade
#Depression
#History of insomnia
Plan:
No changes in respiratory status overnight.
Afebrile
Left chest/upper abdomen pain resolved.
Left-sided loculated pleural effusion predominantly in the L base
She did have a small left-sided pleural effusion seen on the CT abdomen/pelvis from 07/26/2024 when she was diagnosed with diffuse colitis and then later found to have a perforated viscus with pneumoperitoneum + secondary peritonitis requiring
ex-lap on 08/05/2024 --> she was on ABx rec'd by ID as OR cultures were positive for MSSA, E. coli, strep + Klebsiella pneumonia and her hospital course at that time was complicated by intra-abdominal abscesses requiring percutaneous drainage with
abscess culture positive for Enterococcus faecalis, E. coli + Klebsiella pneumoniae --> status post Augmentin.
CT abdomen/pelvis on 08/15/2024 showed a small sized left pleural effusion with a trace size right-sided pleural effusion
Possible intra-abdominal pathology that she had last month contributing to this left-sided pleural effusion which is now loculated
Fluid studies reviewed: pH 7.44 - glu 84 - tp 3.5 - LDH 299 -- indicating exudate
serum LDH 231 - TP 5.5. Normal amylase and triglycerides.
Parapneumonic fluid most likely-cultures negative and cytology negative for malignant cells
Completed antibiotics-observe off antibiotics
-
Dr. Cook reviewed her CT chest findings from 08/30/2024 with interventional radiology today with Dr. Mathias, and this likely LLL-effusion should be drained with a chest tube
s/p chest tube placement by IR 09/01/24
CXR 09/02/24 improved.
s/p IR lytic therapy placed 09/03/24, 690mL output overnight
CT chest 09/06/2024-interval left basilar chest tube, redemonstration of moderate loculated left pleural effusion with associated compressive atelectasis, interval resolution of anterior component of loculated pleural fluid with persistent slight
increased component posteriorly
Dr. Beck called Dr. Samano from IR 09/06/[address]-is there a role for repositioning chest tube posteriorly or placement of a new chest tube into loculated posterior collection or just removal of chest tube 09/06/2024
Chest tube removed 09/06/2024
New chest tube placed on posterior left lung posterior loculated pleural effusion 09/08/2024-total output around 150 cc overnight-appears serous.
chest x-ray AP and lateral 09/09/2024: Showed improvement, no pneumothorax. Chest tube in adequate position.
Chest x-ray AP lateral 09/10/2024: Showed improved posterior collection but no change compared to yesterday. No reaccumulation.
Monitor chest tube output-59 cc overnight
Will keep chest tube for additional 1 to 2 days.
I will discuss with interventional radiology based on chest x-ray if a decision can be made to pull the tube out if output is less than 100 cc in the next 24 to 48 hours.
Daily chest x-ray AP and lateral
-
Maintain euglycemia with goal BG >100 and <180
Outpatient follow up with Oncology for the well-differentiated neuroendocrine tumor seen on pathology from her terminal ileum/colon segmental resection from 08/05/2024
DVT ppx: LMWH
Pulmonary service will continue to follow along.
Data:
CXR 08/30/24- Moderate left-sided pleural effusion with associated compressive atelectasis. There are patchy opacities within the right lower lung, favoring atelectasis.
08/12/24- 1. Postoperative chest.
2. Hazy left lung opacity suggesting layering pleural fluid.
CTA Chest 08/30/2024:No evidence of pulmonary embolus. Moderate loculated left pleural effusion. Progressed. Mild left lower lobe consolidation probably atelectasis. Developing pneumonia not excluded. Stable. Findings consistent prior benign
granulomas disease. Stable
Subjective Data
-
Date of Service:
Date of Service: September 10, 2024
Chief Complaint: Pulmonary Follow Up and Dyspnea Follow Up
Subjective:
No new complaints
Denies shortness of breath
Chest discomfort have significantly improved
Review of Systems
General: Fever (n)
Cardiopulmonary: Dyspnea (none at rest)
GI: Abdominal Pain (n) and Nausea (n)
Objective Data
Data Reviewed
Vital Signs / I&O / Oxygen:
Vital Signs
Temp Pulse Resp BP Pulse Ox
98.3 F 66 16 100/70 96
09/10/24 07:25 09/10/24 07:25 09/10/24 07:25 09/10/24 07:25 09/10/24 07:25
Intake and Output
09/09/24 09/10/24 09/11/24
06:59 06:59 06:59
Intake Total 840 / 840 420 / 420
Output Total 331 / 331 309 / 309
Balance 509 / 509 111 / 111
SaO2 96
Physical Exam
General: Respiratory Distress (n), Comfortable, Pain and Other (NAD)
HEENT: Normocephalic, Anicteric and Moist Mucous Membranes
Cardiovascular: Regular Rhythm
Respiratory: Clear, Non-Labored Respirations and Chest Tube
GI: Soft, Non Distended, Tender (Left-sided, no peritoneal signs) and Other (ostomy in place, JAXSON drain)
Neurology: Awake, Alert, Oriented and No Motor Deficits
Skin: Warm, Dry, Good Color, Cyanosis (n) and Jaundice (n)
Labs/Micro/Reports
Lab Data
09/10/24 07:52
09/10/24 07:52
Microbiology
09/08/24 16:50 Pleural Fluid Body Fluid Culture - Preliminary
No Growth After 48 Hours
09/08/24 16:50 Pleural Fluid Gram Stain - Preliminary
09/01/24 11:50 Pleural Fluid Fungal Smear - Final
No yeast or fungal elements seen.
09/01/24 11:50 Pleural Fluid Fungal Culture - Preliminary
Culture in progress.
Positive cultures are reported as soon as detected.
Final report to follow in four to five weeks.
[2024-09-10] MEDS: TYLENOL 650 MG PO ×2 (12:59→21:50)
[2024-09-10 15:20] VITALS: BP 94/58
--- NOTE | 2024-09-10 16:23 | CM ---
CM met with Kacey at bedside. She still has the chest tube at this time; unclear if she will return to SNF with chest tube, or if this will be removed.
CM will continue to follow for pt's return to [facility] when medically stable.
Plan: Return to [facility] for continued rehabilitation and ostomy teaching.
[facility] Report: [phone]
[facility]
[2024-09-10] MEDS: LOVENOX 40 MG SC (17:43)
--- NOTE | 2024-09-10 19:13 | W.PN.HOSP.TC ---
Addendum entered and electronically signed by Dell Guzman MD 09/10/24 22:11:
Attending Addendum-
I saw and evaluated the patient. I reviewed the resident�s note and agree with findings and plan as documented in the resident�s note. Sub: pain @ post CT site controlled with pain meds. Denies SOB. Full 12 point ROS reviewed and negative except as
documented Exam: Vitals reviewed in chart GEN-NAD heart RRR lungs decreased BS LLL, post CT in place abd soft + ileostomy, incision CDI, LE no edema
Plan:
# Multi-Loculated left-sided pleural effusion
- CT placed- 09/01 DC'd 09/06
- lytic therapy- 09/03
- CT posteriorly placed on 09/08
- monitor CT output closely- decreasing
- serial cxrs- personally reviewed- stable appearance of left chest with left basilar chest tube and left basilar opacity
- monitor for next 24 hours
- possible DC CT on 09/12
# Hypotension
- cont midodrine
#Neuroendocrine Tumor of the Ileum
- no adjuvant therapy at this time
- follow-up with Dr. Mandel as OP.
# Recent admission for Sepsis with intra-abdominal abscess, pneumoperitoneum on 08/05 requiring total abdominal colectomy with end ileostomy
-Monitor output from ileostomy
-Low Residue diet
-lisandra removed
-Continue pain control
#Abdominal Abscess
- resolved
- drain placed on 08/15
- DC JAXSON drain 09/06
- completed course of Augmentin->09/04
#IBS
- hold remicade
#Large degenerating fibroid
- Required an exploratory lap with total abdominal hysterectomy and bilateral salpingo-oophorectomy 08/05
- Follow-up with urogynecology outpatient
# GERD
- cont omeprazole
#Depression/Anxiety
- cont increased Zoloft
- cont prn ativan
DVT prophylaxis
Subcu Lovenox
Dispo- DC back to [facility] when able
Time spent coordinating care, review of plan of care with resident, personally reviewed records in EMR, med rec, consults, notes, labs, radiology, d/w nursing, pulm � 55 mins
Original Note:
Today's Communication/Plan
-
Follow-up with pulmonology and interventional radiology
Assessment / Plan
Assessment / Plan
Loculated left-sided pleural effusion
- Chest tube is draining serous fluid, 180ml from past 24 hours 09/10
-Pulmonology will do a repeat chest x-ray tomorrow and will discuss with interventional radiology whether or not chest tube can be discontinued in the next [address] of the chest will be needed 09/10
- Xray shows modest improvement of loculated left pleural effusion 09/09
- Per pulmonology, Chest xray AP and lateral view tomorrow, with an eventual CT scan of chest, 09/09
-repeat CT chest shows moderate loculated left pleural effusion with associated compressive atelectasis, Interval resolution of anterior component of loculated fluid at the left lung base with persistent slightly increased component posteriorly
09/08
- staus post chest tube removal on 09/06 with plan for posterior location placement today on 09/08 by IRAD.
- Pain control. Morphine prn/oxycodone
- exudate
- CT placed- 09/01
- lytic therapy- 09/03
- repeat CXR 09/05- Hazy appearance in the left lower lobe appears increased compared to prior study, likely pleural effusion. There is probable compressive atelectasis on the left. Patchy airspace disease on the right may be atelectasis but
pneumonia cannot be excluded.
- appreciate pulm input
Hypotension
- todays BP is 94/64, 09/09
-continue midodrine 5mg TID
-check orthostatics
Neuroendocrine Tumor of the Ileum
- no adjuvant therapy at this time
- follow-up with Dr. Mandel of medical oncology regarding her carcinoid.
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
- Patient changed to a regular diet 09/09
- lisandra removed 09/09
-Monitor output from ileostomy
-Continue pain control
Abdominal Abscess
- Intra abdominal drain placed by IR on 08/15- able to be removed as now has minimal OP
- completed course of Augmentin->09/04
IBS
- hold remicade
- Continue oxycodone 15 mg every 6 hours as needed severe pain
Large degenerating fibroid
- Required an exploratory lap with total abdominal hysterectomy and bilateral salpingo-oophorectomy 08/05
- Follow-up with urogynecology outpatient
GERD
- cont omeprazole
Depression/Anxiety
- cont Zoloft
- cont prn ativan
Underweight
-Customer Service Advocate following. Encourage to increase po intake.
DVT prophylaxis
Subcu Lovenox
Anticipated Discharge: 24 - 48 hours
Subjective/Interval History
-
Date of Service: September 10, 2024
No overnight events
No acute medical problems
Chest tube has drained approximately 180 mL in the last 24 hours
Objective Data
-
Labs:
Laboratory Results
09/10/24
07:52
WBC 4.8
Hgb 11.6 L
Hct 36.9 L
Plt Count 559 H
Sodium 137
Potassium 4.8
Chloride 102
Carbon Dioxide 28
BUN 7
Creatinine 0.6
Glucose 106 H
Calcium 8.9
Vital Signs:
Vital Signs
Temp Pulse Resp BP Pulse Ox
97.9 F 64 18 100/66 92
09/10/24 15:20 09/10/24 17:43 09/10/24 15:20 09/10/24 17:43 09/10/24 15:20
I&O
09/09/24 09/10/24 09/11/24
06:59 06:59 06:59
Intake Total 840 / 840 420 / 420 480 / 480
Output Total 331 / 331 309 / 309 418 / 418
Balance 509 / 509 111 / 111 62 / 62
Review of Systems
-
History Source: Patient
Constitutional: Denies Fever or Fatigue
Respiratory: Denies Cough or Trouble Breathing
Cardiac: Denies Chest Pain, Diaphoresis, Palpitations or Syncope
Abdomen/GI: Reports Abdominal Pain; Denies Nausea, Vomiting, Diarrhea or Constipated
Genitourinary: Denies Flank Pain
Musculoskeletal: Denies Joint Pain
Physical Exam
-
General: Appears Chronically Ill
Respiratory: Crackles (Bilaterally at the lower lung lobes)
Cardiac: Regular Rhythm and S1/S2
GI: Soft, Nontender and Nondistended
Skin: Warm and Dry
Neuro: Awake, Alert, Oriented and AO x 3
Data Reviewed
-
Medical Tests (Nuc Med, Echo etc): Image personally visualized and interpreted and Discussed with Physician
Labs: Labs Reviewed by me and Discussed with Physician
[2024-09-10] MEDS: MORPHINE SULFATE 1 MG IV (19:40)
[2024-09-10 23:49] VITALS: BP 93/58
[2024-09-11] MEDS: ROXICODONE 15 MG PO ×3 (00:38→17:45)
[2024-09-11] MEDS: MELATONIN 5 MG PO (00:38)
[2024-09-11 06:00] VITALS: BMI 18.6
[2024-09-11 06:19] LABS: Hematocrit 34.5 % (37.0-47.0); Hemoglobin 10.7 g/dL (12.0-16.0); Mean Corpuscular Hgb 28.3 pg (27.0-31.0); Mean Corpuscular Volume 91.3 fL (81.0-99.0); Mean Platelet Volume 9.1 fL (7.4-10.4); Platelet Count 588 10^3/uL (130-400); Red Blood Cell Count 3.78 10^6/uL (4.20-5.40); Red Cell Dist. Width 16.2 % (11.5-14.5); White Blood Cell Count 5.5 10^3/uL (4.8-10.8)
[2024-09-11 06:39] LABS: Blood Urea Nitrogen 10 mg/dl (7-17); Calcium 9.1 mg/dl (8.4-10.2); Carbon Dioxide 24 mmol/L (22-30); Chloride 103 mmol/L (98-107); Estimated Creatinine Clearance 96 ml/min; Glucose 99 mg/dl (70-99); Potassium 4.8 mmol/L (3.5-5.1); Sodium 138 mmol/L (135-145); eGFR > 60.00
[2024-09-11] MEDS: MORPHINE SULFATE 1 MG IV ×2 (06:39→23:41)
[2024-09-11 07:15] VITALS: BP 99/68
[2024-09-11 07:16] LABS: % Basophils 0.9 % (0-2); % Eosinophils 4.7 % (0-6); % Immature Granulocytes 0.9 % (0-0.5); % Monocytes 6.5 % (1.7-9.3); Absolute Basophils 0.1 10^3/uL (0-0.2); Absolute Eosinophils 0.3 10^3/uL (0-0.7); Absolute Immature Granulocytes 0.1 10^3/uL (0-0.05); Absolute Lymphocytes 3.2 10^3/uL (1.2-3.4); Absolute Monocytes 0.4 10^3/uL (0.1-0.6); Absolute Neutrophils 1.7 10^3/uL (1.4-6.5); Nucleated Red Blood Cells % 0 %
[2024-09-11] MEDS: TYLENOL 650 MG PO ×3 (09:16→20:28)
[2024-09-11] MEDS: OSCAL CAL 500 500 MG PO (09:30)
[2024-09-11] MEDS: ProAmatine 5 MG PO ×3 (09:30→17:00)
[2024-09-11] MEDS: ZOLOFT 100 MG PO (09:30)
[2024-09-11] MEDS: LIDOCAINE 4% PATCH 1 PATCH TOPICAL (09:30)
[2024-09-11] MEDS: PROTONIX 40 MG PO ×2 (09:30→20:10)
--- NOTE | 2024-09-11 09:56 | W.PN.HOSP.TC ---
Addendum entered and electronically signed by Dell Guzman MD 09/11/24 22:03:
Attending Addendum-
I saw and evaluated the patient. I reviewed the resident�s note and agree with findings and plan as documented in the resident�s note. Sub: pain controlled. appears apathetic. 'Im fine' Denies SOB. Full 12 point ROS reviewed and negative except as
documented Exam: Vitals reviewed in chart GEN-NAD heart RRR lungs decreased BS LLL, post CT in place abd soft + ileostomy, incision CDI, LE no edema
Plan:
# Multi-Loculated left-sided pleural effusion
- CT placed- 09/01, lytic therapy-09/03, DC'd-09/06
- CT posteriorly placed on 09/08
- monitor CT output closely
- serial cxrs- personally reviewed- Progressed findings suggesting left lower lobe pneumonia, increased left pleural effusion
- noncompliant with IS
- will likely need repositioning of CT or repeat lytic therapy
# Hypotension
- cont midodrine
#Neuroendocrine Tumor of the Ileum
- no adjuvant therapy at this time
- follow-up with Dr. Mandel as OP.
# Recent admission for Sepsis with intra-abdominal abscess, pneumoperitoneum on 08/05 requiring total abdominal colectomy with end ileostomy
-Monitor output from ileostomy
-Low Residue diet
-lisandra removed
-Continue pain control
#Abdominal Abscess
- resolved
- drain placed on 08/15
- DC JAXSON drain 09/06
- completed course of Augmentin->09/04
#IBS
- hold remicade
#Large degenerating fibroid
- Required an exploratory lap with total abdominal hysterectomy and bilateral salpingo-oophorectomy 08/05
- Follow-up with urogynecology outpatient
# GERD
- cont omeprazole
#Depression/Anxiety
- cont increased Zoloft
- cont prn ativan
DVT prophylaxis
Subcu Lovenox
Dispo- DC back to [facility] when able
Time spent coordinating care, review of plan of care with resident, personally reviewed records in EMR, med rec, consults, notes, labs, radiology, d/w nursing � 57 mins
Original Note:
Today's Communication/Plan
-
- follow up with pulmonology
Assessment / Plan
Assessment / Plan
Loculated left-sided pleural effusion
- Pulmonology wants to observe for another 24 hours and consider the possibility of lytic therapy tomm 09/11
- chest tube has drained total of 250 ml of fluid since yesterday, an increase of 60 ml 09/11
- Chest tube is draining serous fluid, 180ml from past 24 hours 09/10
-Pulmonology will do a repeat chest x-ray tomorrow and will discuss with interventional radiology whether or not chest tube can be discontinued in the next [address] of the chest will be needed 09/10
- Xray shows modest improvement of loculated left pleural effusion 09/09
- Per pulmonology, Chest xray AP and lateral view tomorrow, with an eventual CT scan of chest, 09/09
-repeat CT chest shows moderate loculated left pleural effusion with associated compressive atelectasis, Interval resolution of anterior component of loculated fluid at the left lung base with persistent slightly increased component posteriorly
09/08
- staus post chest tube removal on 09/06 with plan for posterior location placement today on 09/08 by IRAD.
- Pain control. Morphine prn/oxycodone
- exudate
- CT placed- 09/01
- lytic therapy- 09/03
- repeat CXR 09/05- Hazy appearance in the left lower lobe appears increased compared to prior study, likely pleural effusion. There is probable compressive atelectasis on the left. Patchy airspace disease on the right may be atelectasis but
pneumonia cannot be excluded.
- appreciate pulm input
Hypotension
- todays BP is 94/64, 09/09
-continue midodrine 5mg TID
-check orthostatics
Neuroendocrine Tumor of the Ileum
- no adjuvant therapy at this time
- follow-up with Dr. Mandel of medical oncology regarding her carcinoid.
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
- Patient changed to a regular diet 09/09
- lisandra removed 09/09
-Monitor output from ileostomy
-Continue pain control
Abdominal Abscess
- Intra abdominal drain placed by IR on 08/15- able to be removed as now has minimal OP
- completed course of Augmentin->09/04
IBS
- hold remicade
- Continue oxycodone 15 mg every 6 hours as needed severe pain
Large degenerating fibroid
- Required an exploratory lap with total abdominal hysterectomy and bilateral salpingo-oophorectomy 08/05
- Follow-up with urogynecology outpatient
GERD
- cont omeprazole
Depression/Anxiety
- cont Zoloft
- cont prn ativan
Underweight
-Firefighter following. Encourage to increase po intake.
DVT prophylaxis
Subcu Lovenox
Anticipated Discharge: 24 - 48 hours
Subjective/Interval History
-
Date of Service: September 11, 2024
No overnight events
No acute medical events
Objective Data
-
Labs:
Laboratory Results
09/11/24
05:28
WBC 5.5
Hgb 10.7 L
Hct 34.5 L
Plt Count 588 H
Sodium 138
Potassium 4.8
Chloride 103
Carbon Dioxide 24
BUN 10
Creatinine 0.6
Glucose 99
Calcium 9.1
Vital Signs:
Vital Signs
Temp Pulse Resp BP Pulse Ox
98.5 F 75 16 99/68 98
09/11/24 07:15 09/11/24 07:15 09/11/24 07:15 09/11/24 09:30 09/11/24 07:15
I&O
09/10/24 09/11/24 09/12/24
06:59 06:59 06:59
Intake Total 420 / 420 480 / 480
Output Total 309 / 309 418 / 418 225 / 225
Balance 111 / 111 62 / 62 -225 / -225
Review of Systems
-
History Source: Patient
Constitutional: Denies Fever or Chills
Respiratory: Denies Cough or Wheezing
Cardiac: Denies Chest Pain, Diaphoresis, Palpitations or Syncope
Abdomen/GI: Denies Abdominal Pain, Nausea, Vomiting or Diarrhea
Skin: Denies Itching
Physical Exam
-
Respiratory: Decreased Breath Sounds (Bilaterally)
Cardiac: Regular Rhythm and S1/S2
GI: Soft and Nondistended
Musculoskeletal: Edema, Right Lower Extrem and Edema, Left Lower Extrem
Skin: Warm and Dry
Neuro: Awake, Alert, Oriented and AO x 3
Data Reviewed
-
Medical Tests (Nuc Med, Echo etc): Image personally visualized and interpreted and Discussed with Physician
Labs: Labs Reviewed by me and Discussed with Physician
--- NOTE | 2024-09-11 10:19 | W.PN.PUL3 ---
Today's Communication / Plan
-
Minimal output overnight, continue monitoring another 24 hours
Could consider lytic therapy placement prior to pulling but can be done tomorrow in AM
Stable otherwise on RA
Encouraged OOB, ambulation
Assessment
-
54-year-old female with a past medical history of inflammatory bowel disease with suspected ulcerative colitis, depression, and recent total abdominal hysterectomy/bilateral salpingo-oophorectomy on 08/05/2024 due to perforated viscus with
peritonitis and enlarged uterus with calcified leiomyoma who presents with chest pain and shortness of breath. She was given ASA 324 mg prior to arriving here to the [facility]. She continues to have abdominal pain at prior laparoscopic sites.
In the ER she was afebrile to 99.8 �F, pulse rate 97, breathing at 25 breaths/minute, BP 122/90 and saturating 91% on room air. Initial labs showed WBC WNL at 9.2, Hb 10.7, platelets 749, and troponin negative at <0.012. Initial CXR showed
moderate left-sided pleural effusion with right lower lobe patchy opacities likely atelectasis. Subsequent CTA chest was negative for an acute PE and it showed moderate loculated left pleural effusion with a mild left lower lobe consolidation. She
was given Toradol 50 mg in the ER and then admitted to med-surg under the hospitalist with pulmonary consulted for additional management/recommendations.
Chronic conditions [employer]: IBD on Remicade, depression, insomnia, psoriasis, history of sepsis due to perforated viscus with peritonitis s/p MP/BSO on 08/05/2024 with multiple intra-abdominal abscess requiring JAXSON drains and well-differentiated
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
Impression:
#Multiloculated pleural effusions on left hemithorax
#Perforated viscous with secondary peritonitis s/p recent MP/BSO on 08/05/2024 with incidentally discovered degenerating fibroid
#Chronic anemia
#Thrombocytosis likely reactive due to above
#Chronically elevated ALP
#Hx of IBD/UC with diffuse colitis seen on CT A/P from 07/26/2024 currently on Remicade
#Depression
#History of insomnia
Plan:
No changes in respiratory status overnight.
Afebrile
Left chest/upper abdomen pain resolved.
Left-sided loculated pleural effusion predominantly in the L base
She did have a small left-sided pleural effusion seen on the CT abdomen/pelvis from 07/26/2024 when she was diagnosed with diffuse colitis and then later found to have a perforated viscus with pneumoperitoneum + secondary peritonitis requiring
ex-lap on 08/05/2024 --> she was on ABx rec'd by ID as OR cultures were positive for MSSA, E. coli, strep + Klebsiella pneumonia and her hospital course at that time was complicated by intra-abdominal abscesses requiring percutaneous drainage with
abscess culture positive for Enterococcus faecalis, E. coli + Klebsiella pneumoniae --> status post Augmentin.
CT abdomen/pelvis on 08/15/2024 showed a small sized left pleural effusion with a trace size right-sided pleural effusion
Possible intra-abdominal pathology that she had last month contributing to this left-sided pleural effusion which is now loculated
Fluid studies reviewed: pH 7.44 - glu 84 - tp 3.5 - LDH 299 -- indicating exudate
serum LDH 231 - TP 5.5. Normal amylase and triglycerides.
Parapneumonic fluid most likely-cultures negative and cytology negative for malignant cells
Completed antibiotics-observe off antibiotics
-
Dr. Cook reviewed her CT chest findings from 08/30/2024 with interventional radiology today with Dr. Mathias, and this likely LLL-effusion should be drained with a chest tube
s/p chest tube placement by IR 09/01/24
CXR 09/02/24 improved.
s/p IR lytic therapy placed 09/03/24, 690mL output overnight
CT chest 09/06/2024-interval left basilar chest tube, redemonstration of moderate loculated left pleural effusion with associated compressive atelectasis, interval resolution of anterior component of loculated pleural fluid with persistent slight
increased component posteriorly
Dr. Beck called Dr. Samano from IR 09/06/[address]-is there a role for repositioning chest tube posteriorly or placement of a new chest tube into loculated posterior collection or just removal of chest tube 09/06/2024
Chest tube removed 09/06/2024
New chest tube placed on posterior left lung posterior loculated pleural effusion 09/08/2024-total output around 150 cc overnight-appears serous.
chest x-ray AP and lateral 09/09/2024: Showed improvement, no pneumothorax. Chest tube in adequate position.
Chest x-ray AP lateral 09/10/2024: Showed improved posterior collection but no change compared to yesterday. No reaccumulation.
Monitor chest tube output-59 cc overnight
Will keep chest tube for additional 1 to 2 days.
I will discuss with interventional radiology based on chest x-ray if a decision can be made to pull the tube out if output is less than 100 cc in the next 24 to 48 hours.
Daily chest x-ray AP and lateral
-
Maintain euglycemia with goal BG >100 and <180
Outpatient follow up with Oncology for the well-differentiated neuroendocrine tumor seen on pathology from her terminal ileum/colon segmental resection from 08/05/2024
DVT ppx: LMWH
Pulmonary service will continue to follow along.
Data:
CXR 08/30/24- Moderate left-sided pleural effusion with associated compressive atelectasis. There are patchy opacities within the right lower lung, favoring atelectasis.
08/12/24- 1. Postoperative chest.
2. Hazy left lung opacity suggesting layering pleural fluid.
CTA Chest 08/30/2024:No evidence of pulmonary embolus. Moderate loculated left pleural effusion. Progressed. Mild left lower lobe consolidation probably atelectasis. Developing pneumonia not excluded. Stable. Findings consistent prior benign
granulomas disease. Stable
Subjective Data
-
Date of Service:
Date of Service: September 11, 2024
Chief Complaint: Pulmonary Follow Up and Dyspnea Follow Up
Subjective:
No new events ON, remains stable on RA
Minimal output from chest tube
Objective Data
Data Reviewed
Vital Signs / I&O / Oxygen:
Vital Signs
Temp Pulse Resp BP Pulse Ox
98.5 F 75 16 99/68 98
09/11/24 07:15 09/11/24 07:15 09/11/24 07:15 09/11/24 09:30 09/11/24 07:15
Intake and Output
09/10/24 09/11/24 09/12/24
06:59 06:59 06:59
Intake Total 420 / 420 480 / 480
Output Total 309 / 309 418 / 418 225 / 225
Balance 111 / 111 62 / 62 -225 / -225
SaO2 98
Physical Exam
General: Respiratory Distress (n), Comfortable, Pain and Other (NAD)
HEENT: Normocephalic, Anicteric and Moist Mucous Membranes
Cardiovascular: Regular Rhythm
Respiratory: Clear, Non-Labored Respirations and Chest Tube
GI: Soft, Non Distended, Tender (Left-sided, no peritoneal signs) and Other (ostomy in place, JAXSON drain)
Neurology: Awake, Alert, Oriented and No Motor Deficits
Skin: Warm, Dry, Good Color, Cyanosis (n) and Jaundice (n)
Labs/Micro/Reports
Lab Data
09/11/24 05:28
09/11/24 05:28
Microbiology
09/08/24 16:50 Pleural Fluid Body Fluid Culture - Preliminary
No Growth After 48 Hours
09/08/24 16:50 Pleural Fluid Gram Stain - Preliminary
09/01/24 11:50 Pleural Fluid Fungal Smear - Final
No yeast or fungal elements seen.
09/01/24 11:50 Pleural Fluid Fungal Culture - Preliminary
Culture in progress.
Positive cultures are reported as soon as detected.
Final report to follow in four to five weeks.
[2024-09-11] MEDS: XANAX 0.25 MG PO ×2 (10:25→20:28)
[2024-09-11 15:48] VITALS: BP 80/53
[2024-09-11] MEDS: LOVENOX 40 MG SC (16:59)
[2024-09-11 17:05] VITALS: BP 82/54
[2024-09-11 23:18] VITALS: BP 95/61
[2024-09-12 04:22] VITALS: BMI 18.7
[2024-09-12 07:15] VITALS: BP 98/60
--- NOTE | 2024-09-12 07:59 | W.DCSUMMARY ---
Discharge Summary
Discharge Data
Date of Admission: 08/30/24
Date of Discharge: 09/19/24
-
Pending Results: No
Hospital Course
Discharging Physician : Dr. Sukhdev Jordan
Disposition : SNF
Primary care physician : Dr. Richards
Principal Discharge diagnosis : Multiloculated left-sided pleural effusion
Chronic Discharge diagnosis : Hypotension, neuroendocrine tumor of the ileum, abdominal colectomy with end ileostomy, irritable bowel syndrome, GERD, depression/anxiety
Hospital Course : 54-year-old female, full code, from [facility], primary care is Dr. Richards. Past medical history of ulcerative colitis, depression, recent total abdominal hysterectomy/bilateral salpingo-oophorectomy.
admitted on 08/30 for left-sided chest discomfort and shortness of breath. She had a recent admission from 07/26 to 08/26 for inflammatory bowel disease flare with total abdominal colectomy and end ileostomy for pneumoperitoneum complicated by
postop multiple intra-abdominal abscess with abscess culture positive for Enterococcus faecalis/E. coli/Pneumonia for Which IR Placed a Drain on 08/15. On Exploratory Laparotomy They Found to Incidental Findings Which Were Stage II Carcinoid of the
Ileum and Large Fibroids. She Took Augmentin for These Abscesses until 09/04. On Admission troponin negative. In the ER she was afebrile T98.8, pulse rate 97, breathing at 25 breaths/min, blood pressure 122 x 90 and saturating 91% on room air.
Chest x-ray showed moderate left-sided pleural effusion with right lower lobe patchy opacities likely atelectasis. Chest tube was placed on 09/01. Fluid was sent for analysis and showed a pH of 7.44, glucose 84, LDH 299 serum LDH 231, TP 5.5
indicating exudative fluid. On 09/03/2024 she had lytic therapy to help assist with the drainage of the pleural fluid. Total of 690 mL of fluid drained. First chest tube was taken out on 09/06/[address] of the chest showed Rezulin interval
resolution of the anterior component of loculated fluid at the left lung base. However on chest CT it showed that there was an increased component posteriorly at the left lung so they placed a second chest tube on 09/08/2024 in the posterior aspect
to drain the fluid. The second chest tube was discontinued on 09/12/2024 after there was minimal output. She is recommended to see pulmonary outpatient in 4 weeks. During the course of her hospital stay she had significant pain associated with
the incision site for the chest tube as well as associated with her irritable bowel syndrome, so was given adequate pain control with dilated/morphine/oxycodone/Tylenol.
Hypertension�had episodes of hypotension without any associated symptoms during course of hospital stay, started on drainage and continue 10 Mg 3 times daily midodrine.
Neuroendocrine tumor of the ileum�continue to follow-up with Dr. Mandel
Abdominal abscess, JAXSON drain was discontinued on 09/06, Augmentin course was finished on 09/04
Severe protein calorie malnutrition�advised to increase intake of meals and consume supplements as tolerated
IBS�continue Remicade following discharge
GERD�continue omeprazole
Depression/anxiety�increase Zoloft to 100 mg continue to take, continue as needed Ativan
Important imaging findings :
Chest x-ray 08/30/2024:
Moderate left-sided pleural effusion with associated compressive atelectasis. There are patchy opacities within the right lower lung, favoring atelectasis.
Repeat chest x-ray 09/05:
Resolution of loculated fluid in the anterior component at the left lung base with likely increased component posteriorly.
Chest CT 09/06/2024:
1. Interval left basilar chest tube placement. Redemonstration of moderate loculated left pleural effusion with associated compressive atelectasis. Interval resolution of anterior component of loculated fluid at the left lung base with persistent
slightly increased component posteriorly.
Repeat chest x-ray 09/12:
Stable appearance of the left-sided chest tube with stable small/moderate left pleural effusion with adjacent atelectasis.
Procedure findings :
Pleural lysis 09/03/2024�successful tPA and dornase injection into the existing right chest tube
First chest tube placed on 09/01 and removed on 09/06 for draining anterior fusion in left lung
Second chest tube placed on 09/08 and discontinued on 09/12 for draining posterior effusion in the left lung
Discharge Plan
-
Patient Disposition: Custodial/SNF
Discharge Diagnosis/Procedures: Loculated left sided pleural effusion, Neuroendocrine tumor of the ileum, sepsis with intra-abdominal abscess and pneumoperitoneum s/p surgery, hypotension, severe protein calorie malnutrition, inflammatory bowel
disease, acid reflux, depression/anxiety
Condition: Fair
Diet: Regular
Activity: As tolerated
Driving Restrictions: As prior to admission
Bathing Restrictions: None
Other Services: PT and OT
Activity Restrictions/Additional Instructions:
CBC with primary care doctor in 1 week
Change ileostomy appliance 2 times a week and as needed for leakage.
Wash skin with warm water, do not use baby wipes to clean skin.
Treat peristomal skin rash with Miconazole powder followed by no sting skin prep. Use Wafer # [id number] with Flora seal and
Flora paste just on outside of ring.
2 3/4' high output Pete pouch # [id number]. Use attachment drainage system if bag becomes too heavy.
Bethel medium belt
Or Bethel pouch # [id number]. with Velcro closure if stool thicker.
Miconazole powder to coccyx/buttocks BID.
Empty pouch when 1/2 full during the day.
Can shower with pouch on
Instructions: How to Care for Your Ostomy, Adult, Pleural effusion - Discharge instructions
Referrals:
Nahum Mandel DO [Active] - in two to four weeks
Marcos Rojas MD [Active] - in two to three weeks
Karan Richards MD [Family Provider] - in less than 1 week
Additional Discharge Medication Instructions: Patient was provided a script for Oxycodone 5 mg TID x 2 days
Prescriptions:
New
acetaminophen 325 mg Tablet
650 mg PO Q4HPRN PRN (Reason: mild pain/DE LA O/temp> 100.4F) Qty: 30 0RF
sertraline 100 mg Tablet
100 mg PO DAILY Qty: 30 0RF
midodrine 5 mg Tablet
10 mg PO TID@0800,1300,1800 Qty: 30 0RF
Continued
alprazolam 0.25 mg Tablet
0.25 mg PO Q8HPRN PRN (Reason: anxiety) Qty: 4 0RF
pantoprazole [Protonix] 40 mg tablet,delayed release (DR/EC)
40 mg PO BID Qty: 60 0RF
magnesium hydroxide [Milk of Magnesia] 400 mg/5 mL Suspension
30 ml PO DAILYPRN PRN (Reason: if no bm x 3 days) Qty: 1 0RF
calcium carbonate [Oyster Shell Calcium] 500 mg calcium (1,250 mg) Tablet
500 mg PO DAILY Qty: 30 0RF
bisacodyl [Dulcolax (bisacodyl)] 10 mg Suppository
10 mg OH DAILYPRN PRN (Reason: if mom is ineffective after 24hrs) Qty: 30 0RF
Fleet Enema 19-7 gram/118 mL Enema
118 ml OH DAILYPRN PRN (Reason: if dulcolax is ineffective after 24hrs) Qty: 1 0RF
melatonin 5 mg Tablet
5 mg PO HSPRN PRN (Reason: insomnia) Qty: 30 0RF
Changed
oxycodone 15 mg tablet
15 mg PO Q6HPRN PRN (Reason: severe pain) Qty: 10 0RF
Discontinued
amoxicillin-pot clavulanate 875-125 mg tablet
1 tab PO BID Qty: 18 0RF
Rx Instructions:
last day 09/04/24
sertraline 50 mg Tablet
75 mg PO DAILY
Discharge Orders:
Discharge Patient (As Directed); Ordered 09/19/24
Ordered By: Jaswinder Us
Discharge Date and Time
Print Language: PERSIAN
--- NOTE | 2024-09-12 08:04 | W.PN.HOSP.TC ---
Addendum entered and electronically signed by Dell Guzman MD 09/12/24 23:36:
Attending Addendum-
I saw and evaluated the patient. I reviewed the resident�s note and agree with findings and plan as documented in the resident�s note. Sub: seen post CT removal. 'I feel fine' denies Denies SOB/CP. Full 12 point ROS reviewed and negative except as
documented Exam: Vitals reviewed in chart GEN-NAD heart RRR lungs decreased BS LLL, incision from CT CDI bandaged abd soft + ileostomy, incision CDI, LE no edema
Plan:
# Multi-Loculated left-sided pleural effusion
- initial CT placed- 09/01, lytic therapy-09/03, DC'd-09/06
- CT posteriorly placed on 09/08, DC'd- 09/12
- noncompliant with IS
- f/u as OP with pulm in 4 weeks
# Hypotension
- cont midodrine
#Neuroendocrine Tumor of the Ileum
- no adjuvant therapy at this time
- follow-up with Dr. Mandel as OP.
# Recent admission for Sepsis with intra-abdominal abscess, pneumoperitoneum on 08/05 requiring total abdominal colectomy with end ileostomy
-Monitor output from ileostomy
-Low Residue diet
-Continue pain control
#Abdominal Abscess
- resolved
- drain placed on 08/15
- DC JAXSON drain 09/06
- completed course of Augmentin->09/04
#IBS
- hold remicade
#Large degenerating fibroid
- Required an exploratory lap with total abdominal hysterectomy and bilateral salpingo-oophorectomy 08/05
- Follow-up with urogynecology outpatient
# GERD
- cont omeprazole
#Depression/Anxiety
- cont increased Zoloft
- cont prn ativan
DVT prophylaxis-Lovenox
Dispo- DC back to [facility] - awaiting auth medically stable for DC
Time spent coordinating care, review of plan of care with resident, personally reviewed records in EMR, med rec, consults, notes, labs, radiology, d/w nursing, pulm CM � 55 mins
Original Note:
Today's Communication/Plan
-
- follow up case management
Assessment / Plan
Assessment / Plan
Loculated left-sided pleural effusion
- Outpatient pulmonary follow up in 4 weeks 09/12
- Advised to increase out of bed movement 09/12
- Chest tube pulled out today due to minimal output in the last 24 hours , total drained 250 ml09/12
- Pulmonology wants to observe for another 24 hours and consider the possibility of lytic therapy tomm 09/11
- chest tube has drained total of 250 ml of fluid since yesterday, an increase of 60 ml 09/11
-Pulmonology will do a repeat chest x-ray tomorrow and will discuss with interventional radiology whether or not chest tube can be discontinued in the next 24 hours, [address] CT of the chest will be needed 09/10
-repeat CT chest shows moderate loculated left pleural effusion with associated compressive atelectasis, Interval resolution of anterior component of loculated fluid at the left lung base with persistent slightly increased component posteriorly
09/08
- staus post chest tube removal on 09/06 with plan for posterior location placement today on 09/08 by IRAD.
- Pain control. Morphine prn/oxycodone
- exudate
- CT placed- 09/01
- lytic therapy- 09/03
- repeat CXR 09/05- Hazy appearance in the left lower lobe appears increased compared to prior study, likely pleural effusion. There is probable compressive atelectasis on the left. Patchy airspace disease on the right may be atelectasis but
pneumonia cannot be excluded.
- appreciate pulm input
Hypotension
- todays BP is 89/59, 09/12
-continue midodrine 5mg TID
-check orthostatics
Neuroendocrine Tumor of the Ileum
- no adjuvant therapy at this time
- follow-up with Dr. Mandel of medical oncology regarding her carcinoid.
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
- Patient changed to a regular diet 09/09
- lisandra removed 09/09
-Monitor output from ileostomy
-Continue pain control
Abdominal Abscess
- Intra abdominal drain placed by IR on 08/15- able to be removed as now has minimal OP
- completed course of Augmentin->09/04
IBS
- hold remicade
- Continue oxycodone 15 mg every 6 hours as needed severe pain
Large degenerating fibroid
- Required an exploratory lap with total abdominal hysterectomy and bilateral salpingo-oophorectomy 08/05
- Follow-up with urogynecology outpatient
GERD
- cont omeprazole
Depression/Anxiety
- cont Zoloft
- cont prn ativan
Underweight
-Provider Education Specialist following. Encourage to increase po intake.
DVT prophylaxis
Subcu Lovenox
Anticipated Discharge: Today
Subjective/Interval History
-
Date of Service: September 12, 2024
No overnight events
No acute medical events
Patient has no more output from chest tube. Its still at 250 ml.
Objective Data
-
Labs:
Laboratory Results
09/12/24
06:00
WBC Pending
Hgb Pending
Hct Pending
Plt Count Pending
Sodium Pending
Potassium Pending
Chloride Pending
Carbon Dioxide Pending
BUN Pending
Creatinine Pending
Glucose Pending
Calcium Pending
Vital Signs:
Vital Signs
Temp Pulse Resp BP Pulse Ox
98.7 F 73 16 98/60 95
09/12/24 07:15 09/12/24 07:15 09/12/24 07:15 09/12/24 07:15 09/12/24 07:15
I&O
09/11/24 09/12/24 09/13/24
06:59 06:59 06:59
Intake Total 480 / 480 480 / 480
Output Total 418 / 423 532 / 532
Balance 62 / 57 -52 / -52 - / 1
Review of Systems
-
History Source: Patient
Constitutional: Denies Fever or Chills
EENT: Denies Blurry Vision
Respiratory: Denies Cough or Trouble Breathing
Cardiac: Denies Chest Pain, Diaphoresis, Palpitations or Syncope
Abdomen/GI: Reports Abdominal Pain; Denies Nausea, Vomiting, Diarrhea or Constipated
Musculoskeletal: Denies Joint Pain
Neuro: Denies Weakness, Numbness or Lightheadedness
Physical Exam
-
General: Appears Chronically Ill
Respiratory: Decreased Breath Sounds (bilaterally lower lobes)
Cardiac: Regular Rhythm and S1/S2
GI: Soft, Nondistended and Tender (slight generalized tenderness)
Skin: Warm and Dry
Neuro: Awake, Alert, Oriented and AO x 3
[2024-09-12] MEDS: ROXICODONE 15 MG PO ×3 (08:06→20:34)
[2024-09-12] MEDS: LIDOCAINE 4% PATCH 1 PATCH TOPICAL (09:00)
[2024-09-12] MEDS: PROTONIX 40 MG PO ×2 (09:00→20:26)
[2024-09-12] MEDS: TYLENOL 650 MG PO ×2 (09:00→14:03)
[2024-09-12] MEDS: OSCAL CAL 500 500 MG PO (09:00)
[2024-09-12] MEDS: ZOLOFT 100 MG PO (09:00)
[2024-09-12] MEDS: ProAmatine 5 MG PO ×3 (09:00→17:25)
[2024-09-12 09:15] LABS: % Basophils 0.8 % (0-2); % Eosinophils 3.2 % (0-6); % Immature Granulocytes 0.7 % (0-0.5); % Lymphocytes 46.8 % (20.5-51.1); % Monocytes 5.6 % (1.7-9.3); % Neutrophils 42.9 % (42.2-75.2); Absolute Basophils 0.1 10^3/uL (0-0.2); Absolute Eosinophils 0.2 10^3/uL (0-0.7); Absolute Lymphocytes 2.8 10^3/uL (1.2-3.4); Absolute Monocytes 0.3 10^3/uL (0.1-0.6); Absolute Neutrophils 2.6 10^3/uL (1.4-6.5); Hemoglobin 12.1 g/dL (12.0-16.0); Mean Corpuscular Hgb 28.7 pg (27.0-31.0); Mean Corpuscular Volume 92.6 fL (81.0-99.0); Mean Platelet Volume 8.9 fL (7.4-10.4); Nucleated Red Blood Cells % 0 %; Platelet Count 706 10^3/uL (130-400); Red Blood Cell Count 4.21 10^6/uL (4.20-5.40); Red Cell Dist. Width 16.5 % (11.5-14.5); White Blood Cell Count 5.9 10^3/uL (4.8-10.8)
[2024-09-12 09:25] LABS: Blood Urea Nitrogen 12 mg/dl (7-17); Calcium 9.7 mg/dl (8.4-10.2); Carbon Dioxide 27 mmol/L (22-30); Chloride 102 mmol/L (98-107); Estimated Creatinine Clearance 78 ml/min; Glucose 106 mg/dl (70-99); Sodium 139 mmol/L (135-145); eGFR > 60.00
--- NOTE | 2024-09-12 11:05 | PTCARENOTE ---
1055 Patient to IR on Stretchere. Patient identified. Left chest tube removed by IR tech and dressing applied
--- NOTE | 2024-09-12 11:05 | PN.IRAD.UPD ---
Update Note - IRAD
- -
REMOVED LEFT SIDED CHEST TUBE IN DEPARTMENT. PATIENT REQUESTED LIDOCAINE. CLEANED, PREPPED, AND DRAPED PATIENT. REMOVED TUBE WITH NO COMPLAINTS. DRESSED WITH VASIGAUZE AND OPTIFOAM.
[2024-09-12 11:18] VITALS: BP 103/67
[2024-09-12] MEDS: XANAX 0.25 MG PO (12:00)
--- NOTE | 2024-09-12 12:07 | W.PN.PUL3 ---
Today's Communication / Plan
-
Discontinue chest tube
Outpatient pulmonary follow-up in about 4 weeks or earlier if necessary depending on symptoms
Sign off
Assessment
-
54-year-old female with a past medical history of inflammatory bowel disease with suspected ulcerative colitis, depression, and recent total abdominal hysterectomy/bilateral salpingo-oophorectomy on 08/05/2024 due to perforated viscus with
peritonitis and enlarged uterus with calcified leiomyoma who presents with chest pain and shortness of breath. She was given ASA 324 mg prior to arriving here to the [place] [facility]. She continues to have abdominal pain at prior laparoscopic sites.
In the ER she was afebrile to 99.8 �F, pulse rate 97, breathing at 25 breaths/minute, BP 122/90 and saturating 91% on room air. Initial labs showed WBC WNL at 9.2, Hb 10.7, platelets 749, and troponin negative at <0.012. Initial CXR showed
moderate left-sided pleural effusion with right lower lobe patchy opacities likely atelectasis. Subsequent CTA chest was negative for an acute PE and it showed moderate loculated left pleural effusion with a mild left lower lobe consolidation. She
was given Toradol 50 mg in the ER and then admitted to med-surg under the hospitalist with pulmonary consulted for additional management/recommendations.
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
Impression:
#Multiloculated pleural effusions on left hemithorax
#Perforated viscous with secondary peritonitis s/p recent MP/BSO on 08/05/2024 with incidentally discovered degenerating fibroid
#Chronic anemia
#Thrombocytosis likely reactive due to above
#Chronically elevated ALP
#Hx of IBD/UC with diffuse colitis seen on CT A/P from 07/26/2024 currently on Remicade
#Depression
#History of insomnia

Plan:
No changes in respiratory status overnight.
Afebrile
Left-sided loculated pleural effusion predominantly in the L base
She did have a small left-sided pleural effusion seen on the CT abdomen/pelvis from 07/26/2024 when she was diagnosed with diffuse colitis and then later found to have a perforated viscus with pneumoperitoneum + secondary peritonitis requiring
ex-lap on 08/05/2024 --> she was on ABx rec'd by ID as OR cultures were positive for MSSA, E. coli, strep + Klebsiella pneumonia and her hospital course at that time was complicated by intra-abdominal abscesses requiring percutaneous drainage with
abscess culture positive for Enterococcus faecalis, E. coli + Klebsiella pneumoniae --> status post Augmentin.
CT abdomen/pelvis on 08/15/2024 showed a small sized left pleural effusion with a trace size right-sided pleural effusion
Possible intra-abdominal pathology that she had last month contributing to this left-sided pleural effusion which is now loculated
Fluid studies reviewed: pH 7.44 - glu 84 - tp 3.5 - LDH 299 -- indicating exudate
serum LDH 231 - TP 5.5. Normal amylase and triglycerides.
Parapneumonic fluid most likely-cultures negative and cytology negative for malignant cells
Completed antibiotics-observe off antibiotics
-
Dr. Cook reviewed her CT chest findings from 08/30/2024 with interventional radiology today with Dr. Mathias, and this likely LLL-effusion should be drained with a chest tube
s/p chest tube placement by IR 09/01/24
s/p IR lytic therapy placed 09/03/24, 690mL output overnight
CT chest 09/06/2024-interval left basilar chest tube, redemonstration of moderate loculated left pleural effusion with associated compressive atelectasis, interval resolution of anterior component of loculated pleural fluid with persistent slight
increased component posteriorly
Dr. Beck called Dr. Samano from IR 09/06/[address]-is there a role for repositioning chest tube posteriorly or placement of a new chest tube into loculated posterior collection or just removal of chest tube 09/06/2024
Chest tube removed 09/06/2024
New chest tube placed on posterior left lung posterior loculated pleural effusion 09/08/2024-total output around 150 cc -appears serous.
chest x-ray AP and lateral 09/09/2024: Showed improvement, no pneumothorax. Chest tube in adequate position.
Chest x-ray AP lateral 09/10/2024: Showed improved posterior collection but no change compared to yesterday. No reaccumulation.
-
Chest x-ray 09/12/2024: Reviewed, showed some amount of residual fluid. Subsegmental atelectasis noted. No pneumothorax. Chest tube is in place.
No significant output in the last 48 hours
Discussed with interventional radiology imaging results 09/12/2024, chest tube will be discontinued today 09/12/2024
Repeat imaging on as-needed basis depending on symptoms.
Incentive spirometry encouraged
Increase activity as able
-
Outpatient follow up with Oncology for the well-differentiated neuroendocrine tumor seen on pathology from her terminal ileum/colon segmental resection from 08/05/2024
DVT ppx: LMWH
-
Discontinue chest tube 09/12/2024, discussed with interventional radiology.
No additional pulmonary recommendations. Sign off.
Information will be left in the chart for follow-up in the future.
Imaging of the chest should be performed on an as-needed basis depending on symptoms.

Data:
CXR 08/30/24- Moderate left-sided pleural effusion with associated compressive atelectasis. There are patchy opacities within the right lower lung, favoring atelectasis.
08/12/24- 1. Postoperative chest.
2. Hazy left lung opacity suggesting layering pleural fluid.
CTA Chest 08/30/2024:No evidence of pulmonary embolus. Moderate loculated left pleural effusion. Progressed. Mild left lower lobe consolidation probably atelectasis. Developing pneumonia not excluded. Stable. Findings consistent prior benign
granulomas disease. Stable
Subjective Data
-
Date of Service:
Date of Service: September 12, 2024
Chief Complaint: Pulmonary Follow Up and Dyspnea Follow Up
Subjective:
No new pulmonary complaints
Review of Systems
General: Fever (n)
Cardiopulmonary: Dyspnea (none at rest)
GI: Abdominal Pain (n) and Nausea (n)
Neuro: Headache (n)
Objective Data
Data Reviewed
Vital Signs / I&O / Oxygen:
Vital Signs
Temp Pulse Resp BP Pulse Ox
98.3 F 73 18 103/67 97
09/12/24 11:18 09/12/24 11:18 09/12/24 11:18 09/12/24 11:18 09/12/24 11:18
Intake and Output
09/11/24 09/12/24 09/13/24
06:59 06:59 06:59
Intake Total 480 / 480 480 / 480 240 / 240
Output Total 418 / 423 532 / 532 201 / 201
Balance 62 / 57 -52 / -52 39 / 39
SaO2 97
Physical Exam
General: Respiratory Distress (n), Comfortable, Pain and Other (NAD)
HEENT: Normocephalic, Anicteric and Moist Mucous Membranes
Cardiovascular: Regular Rhythm
Respiratory: Clear, Non-Labored Respirations and Chest Tube (no airleak)
GI: Soft, Non Distended, Tender (Left-sided, no peritoneal signs) and Other (ostomy in place, JAXSON drain)
Neurology: Awake, Alert, Oriented and No Motor Deficits
Skin: Warm, Dry, Good Color, Cyanosis (n) and Jaundice (n)
Labs/Micro/Reports
Lab Data
09/12/24 08:33
09/12/24 08:33
Microbiology
09/08/24 16:50 Pleural Fluid Body Fluid Culture - Final
No Growth After 72 Hours
09/08/24 16:50 Pleural Fluid Gram Stain - Final
--- NOTE | 2024-09-12 13:06 | CM ---
Chart reviewed and per physician patient is stable for discharge, chest tube has been removed. Physical therapy still recommend skilled. Patient was admitted from [facility] and plan is for patient to return to [facility] when stable.
air traffic control manager reached out to patient's insurance today [facility] and spoke with Mari naval gunfire liaison officer nurse and she stated that the Auth department is closed today at [facility], [phone].
[facility]
Dr. Chu
Plan; To return to [facility] needs Auth per admissions at [facility].
[facility] Report: [phone]
[facility]
[2024-09-12 15:03] VITALS: BP 89/59
--- NOTE | 2024-09-12 16:24 | PTCARENOTE ---
Returned from IR post chest tube removal with dressing CDI. 96% on RA.
[2024-09-12] MEDS: LOVENOX 40 MG SC (17:25)
[2024-09-12 19:51] VITALS: BP 92/61
[2024-09-12] MEDS: MELATONIN 5 MG PO (23:17)
[2024-09-12 23:29] VITALS: BP 87/60
[2024-09-13] MEDS: TYLENOL 650 MG PO ×3 (04:09→20:39)
[2024-09-13 06:00] VITALS: BMI 18.6
[2024-09-13 06:49] LABS: % Basophils 0.9 % (0-2); % Eosinophils 2.7 % (0-6); % Immature Granulocytes 0.6 % (0-0.5); % Lymphocytes 35.1 % (20.5-51.1); % Monocytes 6.9 % (1.7-9.3); % Neutrophils 53.8 % (42.2-75.2); Absolute Basophils 0.1 10^3/uL (0-0.2); Absolute Eosinophils 0.2 10^3/uL (0-0.7); Absolute Lymphocytes 2.4 10^3/uL (1.2-3.4); Absolute Monocytes 0.5 10^3/uL (0.1-0.6); Absolute Neutrophils 3.6 10^3/uL (1.4-6.5); Hematocrit 37.5 % (37.0-47.0); Hemoglobin 11.2 g/dL (12.0-16.0); Mean Corp Hgb Conc. 29.9 g/dL (33.0-37.0); Mean Corpuscular Hgb 28.1 pg (27.0-31.0); Mean Corpuscular Volume 94.2 fL (81.0-99.0); Mean Platelet Volume 9.2 fL (7.4-10.4); Nucleated Red Blood Cells % 0 %; Platelet Count 591 10^3/uL (130-400); Red Blood Cell Count 3.98 10^6/uL (4.20-5.40); Red Cell Dist. Width 16.2 % (11.5-14.5); White Blood Cell Count 6.7 10^3/uL (4.8-10.8)
[2024-09-13 07:04] LABS: Blood Urea Nitrogen 14 mg/dl (7-17); Calcium 9.5 mg/dl (8.4-10.2); Carbon Dioxide 20 mmol/L (22-30); Chloride 104 mmol/L (98-107); Estimated Creatinine Clearance 91 ml/min; Glucose 104 mg/dl (70-99); Potassium 5.1 mmol/L (3.5-5.1); Sodium 136 mmol/L (135-145); eGFR > 60.00
[2024-09-13 07:10] VITALS: BP 92/60
[2024-09-13] MEDS: OSCAL CAL 500 500 MG PO (09:10)
[2024-09-13] MEDS: ProAmatine 5 MG PO ×3 (09:10→16:56)
[2024-09-13] MEDS: LIDOCAINE 4% PATCH 1 PATCH TOPICAL (09:10)
[2024-09-13] MEDS: PROTONIX 40 MG PO ×2 (09:11→19:29)
[2024-09-13] MEDS: ZOLOFT 100 MG PO (09:11)
[2024-09-13] MEDS: ROXICODONE 15 MG PO ×2 (09:12→16:56)
--- NOTE | 2024-09-13 10:23 | W.PN.HOSP.TC ---
Today's Communication/Plan
-
see A/P
Assessment / Plan
Assessment / Plan
A/P:
# Multi-Loculated left-sided pleural effusion
- initial CT placed 09/01, lytic therapy 09/03, DC'd 09/06
- CT posteriorly placed on 09/08, DC'd 09/12
- noncompliant with IS
- f/u as OP with pulm in 4 weeks
# Hypotension
- cont midodrine
# Neuroendocrine Tumor of the Ileum
- no adjuvant therapy at this time
- follow-up with Dr. Mandel as OP.
# Recent admission for Sepsis with intra-abdominal abscess, pneumoperitoneum on 08/05 requiring total abdominal colectomy with end ileostomy
- Monitor output from ileostomy
- Regular diet
- Continue pain control
# Abdominal Abscess, resolved
- drain placed on 08/15. DC JAXSON drain 09/06
- completed course of Augmentin->09/04
# IBS
- hold remicade
# Large degenerating fibroid
- Required exploratory lap with total abdominal hysterectomy and bilateral salpingo-oophorectomy 08/05
- Follow-up with urogynecology outpatient
# GERD
- cont omeprazole
# Depression/Anxiety
- cont increased Zoloft
- cont prn ativan
DVT prophylaxis-Lovenox
Dispo- DC back to [facility] - awaiting auth medically stable for DC
DW CM
Anticipated Discharge: Within 24 hours
Subjective/Interval History
-
Date of Service: September 13, 2024
Objective Data
-
Labs:
Laboratory Results
09/13/24
06:15
WBC 6.7
Hgb 11.2 L
Hct 37.5
Plt Count 591 H
Sodium 136
Potassium 5.1
Chloride 104
Carbon Dioxide 20 L
BUN 14
Creatinine 0.6
Glucose 104 H
Calcium 9.5
Vital Signs:
Vital Signs
Temp Pulse Resp BP Pulse Ox
37.0 C 66 16 92/60 96
09/13/24 07:10 09/13/24 09:10 09/13/24 07:10 09/13/24 09:10 09/13/24 07:10
I&O
09/12/24 09/13/24 09/14/24
06:59 06:59 06:59
Intake Total 480 / 480 480 / 480
Output Total 532 / 532 501 / 501
Balance -52 / -52 -21 / -21
Review of Systems
-
All other systems: Reviewed and negative
Physical Exam
-
General: Well Developed, Well Nourished, No Apparent Distress, Comfortable and Conversant
HEENT: Normocephalic
Respiratory: Non Labored Respirations; Negative Accessory Resp Muscle Use
Cardiac: Regular Rhythm and S1/S2
GI: Soft and Nondistended
Skin: Warm and Dry
Neuro: Awake, Alert and Oriented
Psych: Calm and Intact Judgement/Insight
Data Reviewed
-
Labs: Labs Reviewed by me
--- NOTE | 2024-09-13 13:42 | CM ---
Kacey is stable for discharge as of 09/12/2024. [facility] was closed on Sunday due to the .
called [facility] today to pursue authorization; the office is closed until 09/15/2024.
CM to continue to follow; will f/u for SNF authorization for [facility]
Plan; F/U on Sunday with [facility] to obtain prior authorization for return to [facility]. Auth required per admissions at [facility].
[facility] Report: [phone]
[facility]
[2024-09-13 15:25] VITALS: BP 95/68
[2024-09-13] MEDS: LOVENOX 40 MG SC (16:56)
[2024-09-13] MEDS: MELATONIN 5 MG PO (22:43)
[2024-09-13 23:28] VITALS: BP 84/56
[2024-09-14 06:00] VITALS: BMI 18.5
[2024-09-14] MEDS: ZOLOFT 100 MG PO (07:28)
[2024-09-14] MEDS: PROTONIX 40 MG PO ×2 (07:29→19:25)
[2024-09-14] MEDS: LIDOCAINE 4% PATCH 1 PATCH TOPICAL (07:29)
[2024-09-14] MEDS: OSCAL CAL 500 500 MG PO (07:29)
[2024-09-14] MEDS: ProAmatine 5 MG PO (07:29)
[2024-09-14] MEDS: MORPHINE SULFATE 1 MG IV (07:29)
[2024-09-14 08:20] VITALS: BP 86/62
--- NOTE | 2024-09-14 09:59 | W.PN.HOSP.TC ---
Today's Communication/Plan
-
see A/P
Assessment / Plan
Assessment / Plan
A/P:
# Multi-Loculated left-sided pleural effusion
- initial CT placed 09/01, lytic therapy 09/03, DC'd 09/06
- CT posteriorly placed on 09/08, DC'd 09/12
- noncompliant with IS
- f/u as OP with pulm in 4 weeks
# Hypotension
- cont midodrine, increased to 10 mg TID
# Neuroendocrine Tumor of the Ileum
- no adjuvant therapy at this time
- follow-up with Dr. Mandel as OP.
# Recent admission for Sepsis with intra-abdominal abscess, pneumoperitoneum on 08/05 requiring total abdominal colectomy with end ileostomy
- Monitor output from ileostomy
- Regular diet
- Continue pain control
# Abdominal Abscess, resolved
- drain placed on 08/15. DC JAXSON drain 09/06
- completed course of Augmentin->09/04
# IBS
- hold remicade
# Large degenerating fibroid
- Required exploratory lap with total abdominal hysterectomy and bilateral salpingo-oophorectomy 08/05
- Follow-up with urogynecology outpatient
# GERD
- cont omeprazole
# Depression/Anxiety
- cont increased Zoloft
- cont prn ativan
DVT prophylaxis-Lovenox
Dispo- DC back to [facility] - awaiting auth medically stable for DC
DW RN
Anticipated Discharge: Within 24 hours
Subjective/Interval History
-
Date of Service: September 14, 2024
Objective Data
-
Vital Signs:
Vital Signs
Temp Pulse Resp BP Pulse Ox
36.3 C 70 18 86/62 94
09/14/24 08:20 09/14/24 08:20 09/14/24 08:20 09/14/24 08:20 09/14/24 08:20
I&O
09/13/24 09/14/24 09/15/24
06:59 06:59 06:59
Intake Total 480 / 480 720 / 720
Output Total 501 / 501 250 / 250
Balance -21 / -21 470 / 470
[2024-09-14] MEDS: ProAmatine 10 MG PO ×2 (12:45→17:10)
[2024-09-14 15:12] VITALS: BP 98/61
[2024-09-14] MEDS: LOVENOX 40 MG SC (17:10)
[2024-09-14] MEDS: ROXICODONE 15 MG PO ×2 (17:13→23:23)
[2024-09-14] MEDS: TYLENOL 650 MG PO (17:23)
[2024-09-14] MEDS: XANAX 0.25 MG PO (19:01)
[2024-09-14] MEDS: MELATONIN 5 MG PO (22:54)
[2024-09-14 23:20] VITALS: BP 93/57
[2024-09-15 06:00] VITALS: BMI 18.5
[2024-09-15] MEDS: ROXICODONE 15 MG PO ×3 (06:18→20:45)
[2024-09-15 07:30] VITALS: BP 93/60
[2024-09-15] MEDS: PROTONIX 40 MG PO ×2 (08:46→20:45)
[2024-09-15] MEDS: OSCAL CAL 500 500 MG PO (08:46)
[2024-09-15] MEDS: LIDOCAINE 4% PATCH 1 PATCH TOPICAL (08:46)
[2024-09-15] MEDS: ProAmatine 10 MG PO ×3 (08:47→17:07)
[2024-09-15] MEDS: ZOLOFT 100 MG PO (08:47)
[2024-09-15 10:07] LABS: Hematocrit 37.4 % (37.0-47.0); Mean Corp Hgb Conc. 32.1 g/dL (33.0-37.0); Mean Corpuscular Hgb 29.2 pg (27.0-31.0); Mean Platelet Volume 9.2 fL (7.4-10.4); Platelet Count 705 10^3/uL (130-400); Red Blood Cell Count 4.11 10^6/uL (4.20-5.40); Red Cell Dist. Width 16.8 % (11.5-14.5); White Blood Cell Count 7.5 10^3/uL (4.8-10.8)
[2024-09-15] MEDS: TYLENOL 650 MG PO ×2 (11:01→16:24)
[2024-09-15 11:18] VITALS: BP 95/63; PULSE 61; O2SAT 95
[2024-09-15 11:27] LABS: Blood Urea Nitrogen 10 mg/dl (7-17); Calcium 9.9 mg/dl (8.4-10.2); Carbon Dioxide 23 mmol/L (22-30); Chloride 103 mmol/L (98-107); Estimated Creatinine Clearance 91 ml/min; Glucose 115 mg/dl (70-99); Potassium 4.9 mmol/L (3.5-5.1); Sodium 140 mmol/L (135-145); eGFR > 60.00
--- NOTE | 2024-09-15 13:06 | W.PN.HOSP.TC ---
Addendum entered and electronically signed by Sukhdev Jordan MD 09/15/24 15:32:
dc to [facility] when bed avaliable
More than 30 minutes spent in discharge including
Final examination of the patient
Summarizing hospital stay
Instructions for continuing care to all relevant caregivers
Preparation of discharge records, prescriptions, and referral forms
Total time spent (in minutes): 33min
Original Note:
Today's Communication/Plan
-
- pulmonology outpatient follow up in 4 weeks
Assessment / Plan
Assessment / Plan
A/P:
# Multi-Loculated left-sided pleural effusion
- initial CT placed 09/01, lytic therapy 09/03, DC'd 09/06
- CT posteriorly placed on 09/08, DC'd 09/12
- noncompliant with IS
- f/u as OP with pulm in 4 weeks
# Hypotension
- cont midodrine, increased to 10 mg TID
# Neuroendocrine Tumor of the Ileum
- no adjuvant therapy at this time
- follow-up with Dr. Mandel as OP.
# Recent admission for Sepsis with intra-abdominal abscess, pneumoperitoneum on 08/05 requiring total abdominal colectomy with end ileostomy
- Monitor output from ileostomy
- Regular diet
- Continue pain control
# Abdominal Abscess, resolved
- drain placed on 08/15. DC JAXSON drain 09/06
- completed course of Augmentin->09/04
# Severe Protein calorie malnutrition:
- Significant 15% wt loss noted over the past couple of months
- 116 lbs currently, BMI 18.5, 08/01/24 was 152 lbs and on d/c 08/26 138 lbs both on bed scales.
- Pt meets ASPEN criteria for severe protein calorie malnutrition of chronic illness with >5% weight loss over 1 month, prolonged inadequate energy intake <75% x 1 month.
- I agree with vp of digital marketing on continued increased intakes of meals and consume supplement as tolerated
# IBS
- hold remicade
# Large degenerating fibroid
- Required exploratory lap with total abdominal hysterectomy and bilateral salpingo-oophorectomy 08/05
- Follow-up with urogynecology outpatient
# GERD
- cont omeprazole
# Depression/Anxiety
- cont increased Zoloft
- cont prn ativan
DVT prophylaxis-Lovenox
Dispo- DC back to [facility] SN[facility] - awaiting auth medically stable for DC
DW RN
Anticipated Discharge: Today
Subjective/Interval History
-
Date of Service: September 15, 2024
No overnight events.
Patient states that she is coughing up more phlgem than usual post chest tube removal.
Objective Data
-
Labs:
Laboratory Results
09/15/24
09:05
WBC 7.5
Hgb 12.0
Hct 37.4
Plt Count 705 H
Sodium 140
Potassium 4.9
Chloride 103
Carbon Dioxide 23
BUN 10
Creatinine 0.6
Glucose 115 H
Calcium 9.9
Vital Signs:
Vital Signs
Temp Pulse Resp BP Pulse Ox
98.3 F 61 18 93/60 98
09/15/24 07:30 09/15/24 08:47 09/15/24 07:30 09/15/24 08:47 09/15/24 09:05
I&O
09/14/24 09/15/24 09/16/24
06:59 06:59 06:59
Intake Total 720 / 720 1170 / 1170
Output Total 250 / 250 450 / 450
Balance 470 / 470 720 / 720
Review of Systems
-
History Source: Patient
Constitutional: Denies Fever, Fatigue or Chills
EENT: Denies Blurry Vision
Respiratory: Denies Cough or Wheezing
Cardiac: Denies Chest Pain, Diaphoresis, Palpitations, Syncope, PND or Orthopnea
Abdomen/GI: Reports Abdominal Pain; Denies Nausea, Vomiting, Diarrhea or Constipated
Genitourinary: Denies Dysuria
Musculoskeletal: Reports Muscle Pain (on left side of neck like upper trapezius); Denies Joint Pain
Neuro: Denies Dizzy, Weakness or Numbness
Physical Exam
-
General: Appears Chronically Ill
Respiratory: Decreased Breath Sounds (on lower lobe of left lung)
Cardiac: Regular Rhythm and S1/S2; Negative Murmur
GI: Soft, Nontender, Nondistended and Normal Bowel Sounds
Musculoskeletal: No Edema
Skin: Warm and Dry
Neuro: Awake, Alert, Oriented and AO x 3
Data Reviewed
-
Medical Tests (Nuc Med, Echo etc): Image personally visualized and interpreted and Discussed with Physician
Labs: Labs Reviewed by me and Discussed with Physician
--- NOTE | 2024-09-15 13:17 | CM ---
Kacey is stable for discharge since 09/12/2024. [facility] was closed on Sunday due to the .
CM called [facility] today to pursue authorization; Pending Reference #[id number]
Records to be faxed to [phone] and authorization should be provided within 24 hours of receipt of records.
to continue to follow; will f/u for SNF authorization for return to [facility].
[facility]
Dr. Chu
[2024-09-15 15:30] VITALS: BP 92/63
[2024-09-15] MEDS: LOVENOX 40 MG SC (17:06)
[2024-09-15] MEDS: MELATONIN 5 MG PO (23:04)
[2024-09-15 23:13] VITALS: BP 90/59
[2024-09-16] MEDS: ROXICODONE 15 MG PO ×2 (05:58→21:38)
[2024-09-16 07:25] VITALS: BP 89/55
[2024-09-16 09:09] VITALS: BP 90/62
[2024-09-16] MEDS: TYLENOL 650 MG PO ×2 (09:37→14:31)
[2024-09-16] MEDS: LIDOCAINE 4% PATCH 1 PATCH TOPICAL (09:38)
[2024-09-16] MEDS: ProAmatine 10 MG PO ×3 (09:38→17:32)
[2024-09-16] MEDS: OSCAL CAL 500 500 MG PO (09:39)
[2024-09-16] MEDS: ZOLOFT 100 MG PO (09:39)
[2024-09-16] MEDS: PROTONIX 40 MG PO ×2 (09:39→21:38)
--- NOTE | 2024-09-16 12:15 | W.PN.HOSP.TC ---
Addendum entered and electronically signed by Sukhdev Jordan MD 09/16/24 13:53:
dc to [facility] when bed avaliable/insurance auth has been obtained
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 will need outpatient pulm follow up
neuroendocrine tumor will need to follow up with outpatient oncology
Original Note:
Today's Communication/Plan
-
- Follow up case managment
Assessment / Plan
Assessment / Plan
Dispo- DC back to [facility] SN[facility] - awaiting auth
A/P:
Multi-Loculated left-sided pleural effusion
- initial CT placed 09/01, lytic therapy 09/03, DC'd 09/06
- CT posteriorly placed on 09/08, DC'd 09/12
- noncompliant with IS
- f/u as OP with pulm in 4 weeks
Hypotension
- cont midodrine, increased to 10 mg TID
Neuroendocrine Tumor of the Ileum
- no adjuvant therapy at this time
- follow-up with Dr. Mandel as OP.
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
- Monitor output from ileostomy
- Regular diet
- Continue pain control
Abdominal Abscess, resolved
- drain placed on 08/15. DC JAXSON drain 09/06
- completed course of Augmentin->09/04
Severe Protein calorie malnutrition:
- Significant 15% wt loss noted over the past couple of months
- 116 lbs currently, BMI 18.5, 08/01/24 was 152 lbs and on d/c 08/26 138 lbs both on bed scales.
- Pt meets ASPEN criteria for severe protein calorie malnutrition of chronic illness with >5% weight loss over 1 month, prolonged inadequate energy intake <75% x 1 month.
- I agree with pre school teacher on continued increased intakes of meals and consume supplement as tolerated
IBS
- hold remicade
Large degenerating fibroid
- Required exploratory lap with total abdominal hysterectomy and bilateral salpingo-oophorectomy 08/05
- Follow-up with urogynecology outpatient
GERD
- cont omeprazole
Depression/Anxiety
- cont Zoloft 100 mg
- cont prn ativan
DVT prophylaxis-Lovenox
Anticipated Discharge: Within 24 hours
Subjective/Interval History
-
Date of Service: September 16, 2024
No overnight events.
Patient is not coughing up as much phlegm as she was yesterday feeling a lot better. Currently on incentive spirometry.
Objective Data
-
Vital Signs:
Vital Signs
Temp Pulse Resp BP Pulse Ox
98.1 F 71 18 90/62 98
09/16/24 07:25 09/16/24 09:09 09/16/24 07:25 09/16/24 09:09 09/16/24 07:25
I&O
09/15/24 09/16/24 09/17/24
06:59 06:59 06:59
Intake Total 1170 / 1170 960 / 960
Output Total 450 / 450 550 / 550
Balance 720 / 720 410 / 410
Review of Systems
-
History Source: Patient
Constitutional: Denies Fever, Fatigue or Chills
EENT: Denies Blurry Vision
Respiratory: Denies Cough or Wheezing
Cardiac: Denies Chest Pain, Diaphoresis, Palpitations, Syncope, PND or Orthopnea
Abdomen/GI: Reports Abdominal Pain; Denies Nausea, Vomiting, Diarrhea or Constipated
Genitourinary: Denies Dysuria
Musculoskeletal: Reports Muscle Pain (on left side of neck like upper trapezius); Denies Joint Pain
Neuro: Denies Dizzy, Weakness or Numbness
Physical Exam
-
General: Appears Chronically Ill
Respiratory: Decreased Breath Sounds (on lower lobe of left lung)
Cardiac: Regular Rhythm and S1/S2; Negative Murmur
GI: Soft, Nontender, Nondistended and Normal Bowel Sounds
Musculoskeletal: No Edema
Skin: Warm and Dry
Neuro: Awake, Alert, Oriented and AO x 3
Data Reviewed
-
Medical Tests (Nuc Med, Echo etc): Image personally visualized and interpreted and Discussed with Physician
Labs: Labs Reviewed by me and Discussed with Physician
[2024-09-16 15:06] VITALS: BP 99/62
--- NOTE | 2024-09-16 16:09 | CM ---
[facility] authorization sent on 09/15/2024. Pending Reference #[id number]
No determination received today despite being told that auth would be provided within 1 business day of auth request.
Plan: Await Irina Casanova for transfer to [facility].
[2024-09-16] MEDS: LOVENOX 40 MG SC (17:32)
[2024-09-16] MEDS: XANAX 0.25 MG PO (17:33)
[2024-09-16 23:36] VITALS: BP 90/56
[2024-09-16] MEDS: MELATONIN 5 MG PO (23:42)
[2024-09-17] MEDS: TYLENOL 650 MG PO ×3 (02:26→18:27)
[2024-09-17 06:00] VITALS: BMI 18.7
[2024-09-17 07:50] VITALS: BP 92/55
[2024-09-17] MEDS: ProAmatine 10 MG PO ×3 (08:08→17:14)
[2024-09-17] MEDS: LIDOCAINE 4% PATCH 1 PATCH TOPICAL (08:08)
[2024-09-17] MEDS: ZOLOFT 100 MG PO (08:09)
[2024-09-17] MEDS: OSCAL CAL 500 500 MG PO (08:09)
[2024-09-17] MEDS: PROTONIX 40 MG PO ×2 (08:09→19:54)
[2024-09-17 08:55] LABS: Hematocrit 39.2 % (37.0-47.0); Hemoglobin 12.5 g/dL (12.0-16.0); Mean Corp Hgb Conc. 31.9 g/dL (33.0-37.0); Mean Corpuscular Hgb 29.6 pg (27.0-31.0); Mean Corpuscular Volume 92.9 fL (81.0-99.0); Mean Platelet Volume 9.5 fL (7.4-10.4); Platelet Count 658 10^3/uL (130-400); Red Blood Cell Count 4.22 10^6/uL (4.20-5.40); Red Cell Dist. Width 16.9 % (11.5-14.5); White Blood Cell Count 5.8 10^3/uL (4.8-10.8)
[2024-09-17 09:50] LABS: ALT (SGPT) 19 U/L (0-35); AST (SGOT) 25 U/L (14-36); Albumin 3.6 g/dl (3.5-5.0); Alkaline Phosphatase 277 U/L (38-126); Blood Urea Nitrogen 13 mg/dl (7-17); Calcium 10.1 mg/dl (8.4-10.2); Carbon Dioxide 24 mmol/L (22-30); Chloride 103 mmol/L (98-107); Estimated Creatinine Clearance 79 ml/min; Glucose 102 mg/dl (70-99); Potassium 4.9 mmol/L (3.5-5.1); Sodium 140 mmol/L (135-145); Total Bilirubin 0.1 mg/dl (0.2-1.3); Total Protein 6.6 g/dl (6.3-8.2); eGFR > 60.00
--- NOTE | 2024-09-17 10:08 | CM ---
CM placed call to patients insurance to check auth status, reference #[id number], informed waiting on clinicals to review for auth approval. CM relayed clinicals have been previously faxed, confirmed faxed number [phone], asked to please
expedite auth. CM will continue to follow for all discharge planning needs.
Plan; [facility], awaiting auth approval.
[facility] Report: [phone]
[facility]
[2024-09-17] MEDS: ROXICODONE 15 MG PO ×2 (11:18→17:15)
--- NOTE | 2024-09-17 11:48 | W.PN.HOSP.TC ---
Addendum entered and electronically signed by Sukhdev Jordan MD 09/17/24 17:17:
dc to [facility] when bed avaliable/insurance auth has been obtained
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 will need outpatient pulm follow up
neuroendocrine tumor will need to follow up with outpatient oncology
Original Note:
Today's Communication/Plan
-
- follow up with case managment
Assessment / Plan
Assessment / Plan
Dispo- DC back to [facility] - awaiting auth 09/17
A/P:
Multi-Loculated left-sided pleural effusion
- Advised to continue using incentive spirometry
- initial CT placed 09/01, lytic therapy 09/03, DC'd 09/06
- CT posteriorly placed on 09/08, DC'd 09/12
- f/u as OP with pulm in 4 weeks
Hypotension
- cont midodrine, increased to 10 mg TID
Neuroendocrine Tumor of the Ileum
- no adjuvant therapy at this time
- follow-up with Dr. Mandel as OP.
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
- Monitor output from ileostomy
- Regular diet
- Continue pain control
Abdominal Abscess, resolved
- drain placed on 08/15. DC JAXSON drain 09/06
- completed course of Augmentin->09/04
Severe Protein calorie malnutrition:
- Significant 15% wt loss noted over the past couple of months
- 116 lbs currently, BMI 18.5, 08/01/24 was 152 lbs and on d/c 08/26 138 lbs both on bed scales.
- Pt meets ASPEN criteria for severe protein calorie malnutrition of chronic illness with >5% weight loss over 1 month, prolonged inadequate energy intake <75% x 1 month.
- I agree with seam finisher on continued increased intakes of meals and consume supplement as tolerated
IBS
- hold remicade
Large degenerating fibroid
- Required exploratory lap with total abdominal hysterectomy and bilateral salpingo-oophorectomy 08/05
- Follow-up with urogynecology outpatient
GERD
- cont omeprazole
Depression/Anxiety
- cont Zoloft 100 mg
- cont prn ativan
DVT prophylaxis-Lovenox
Anticipated Discharge: Within 24 hours
Subjective/Interval History
-
Date of Service: September 17, 2024
No overnight events.
No acute medical problems.
Currently using incentive spirometry.
Objective Data
-
Labs:
Laboratory Results
09/17/24
07:48
WBC 5.8
Hgb 12.5
Hct 39.2
Plt Count 658 H
Sodium 140
Potassium 4.9
Chloride 103
Carbon Dioxide 24
BUN 13
Creatinine 0.7
Glucose 102 H
Calcium 10.1
Total Bilirubin 0.1 L
AST 25
ALT 19
Alkaline Phosphatase 277 H
Vital Signs:
Vital Signs
Temp Pulse Resp BP Pulse Ox
98.4 F 58 18 92/55 98
09/17/24 07:50 09/17/24 08:08 09/17/24 07:50 09/17/24 08:08 09/17/24 07:50
I&O
09/16/24 09/17/24 09/18/24
06:59 06:59 06:59
Intake Total 960 / 960 900 / 900
Output Total 550 / 550 300 / 300
Balance 410 / 410 600 / 600
Review of Systems
-
History Source: Patient
Constitutional: Denies Fever, Fatigue or Chills
EENT: Denies Blurry Vision
Respiratory: Denies Cough or Wheezing
Cardiac: Denies Chest Pain, Diaphoresis, Palpitations, Syncope, PND or Orthopnea
Abdomen/GI: Reports Abdominal Pain; Denies Nausea, Vomiting, Diarrhea or Constipated
Genitourinary: Denies Dysuria
Musculoskeletal: Reports Muscle Pain (on left side of neck like upper trapezius); Denies Joint Pain
Neuro: Denies Dizzy, Weakness or Numbness
Physical Exam
-
General: Appears Chronically Ill
Respiratory: Decreased Breath Sounds (on lower lobe of left lung)
Cardiac: Regular Rhythm and S1/S2; Negative Murmur
GI: Soft, Nontender, Nondistended and Normal Bowel Sounds
Musculoskeletal: No Edema
Skin: Warm and Dry
Neuro: Awake, Alert, Oriented and AO x 3
Data Reviewed
-
Medical Tests (Nuc Med, Echo etc): Image personally visualized and interpreted and Discussed with Physician
Labs: Labs Reviewed by me and Discussed with Physician
[2024-09-17 14:19] VITALS: BP 98/64; PULSE 64; O2SAT 99
[2024-09-17 15:36] VITALS: BP 101/70; PULSE 64; O2SAT 98
[2024-09-17 16:09] VITALS: BP 95/67
[2024-09-17] MEDS: LOVENOX 40 MG SC (17:14)
[2024-09-17] MEDS: MORPHINE SULFATE 1 MG IV (21:06)
[2024-09-17 23:29] VITALS: BP 94/56
[2024-09-18] MEDS: TYLENOL 650 MG PO ×3 (00:01→19:34)
[2024-09-18 06:00] VITALS: BMI 18.7
[2024-09-18 08:11] VITALS: BP 86/57
[2024-09-18 08:43] LABS: Hematocrit 41.2 % (37.0-47.0); Hemoglobin 12.5 g/dL (12.0-16.0); Mean Corp Hgb Conc. 30.3 g/dL (33.0-37.0); Mean Corpuscular Hgb 28.3 pg (27.0-31.0); Mean Corpuscular Volume 93.2 fL (81.0-99.0); Mean Platelet Volume 9.2 fL (7.4-10.4); Platelet Count 564 10^3/uL (130-400); Red Blood Cell Count 4.42 10^6/uL (4.20-5.40); Red Cell Dist. Width 16.9 % (11.5-14.5); White Blood Cell Count 6.6 10^3/uL (4.8-10.8)
[2024-09-18 09:14] LABS: Blood Urea Nitrogen 15 mg/dl (7-17); Carbon Dioxide 20 mmol/L (22-30); Chloride 105 mmol/L (98-107); Estimated Creatinine Clearance 92 ml/min; Glucose 90 mg/dl (70-99); Potassium 4.9 mmol/L (3.5-5.1); Sodium 139 mmol/L (135-145); eGFR > 60.00
[2024-09-18] MEDS: LIDOCAINE 4% PATCH 1 PATCH TOPICAL (09:41)
[2024-09-18] MEDS: ProAmatine 10 MG PO ×3 (09:41→17:53)
[2024-09-18] MEDS: PROTONIX 40 MG PO ×2 (09:42→19:34)
[2024-09-18] MEDS: OSCAL CAL 500 500 MG PO (09:42)
[2024-09-18] MEDS: ZOLOFT 100 MG PO (09:43)
[2024-09-18] MEDS: ROXICODONE 15 MG PO ×3 (09:50→22:43)
--- NOTE | 2024-09-18 12:38 | W.PN.HOSP.TC ---
Addendum entered and electronically signed by Sukhdev Jordan MD 09/18/24 14:02:
dc to [facility] when bed avaliable/insurance auth has been obtained
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 will need outpatient pulm follow up
neuroendocrine tumor will need to follow up with outpatient oncology
Original Note:
Today's Communication/Plan
-
- follow case managment
Assessment / Plan
Assessment / Plan
Dispo- DC back to [facility] - awaiting approval from [place] 09/18
A/P:
Multi-Loculated left-sided pleural effusion
- Advised to continue using incentive spirometry
- initial CT placed 09/01, lytic therapy 09/03, DC'd 09/06
- CT posteriorly placed on 09/08, DC'd 09/12
- f/u as OP with pulm in 4 weeks
Hypotension
- Todays BP is 86/57
- cont midodrine, increased to 10 mg TID
Neuroendocrine Tumor of the Ileum
- no adjuvant therapy at this time
- follow-up with Dr. Mandel as OP.
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
- Monitor output from ileostomy
- Regular diet
- Continue pain control
Abdominal Abscess, resolved
- drain placed on 08/15. DC JAXSON drain 09/06
- completed course of Augmentin->09/04
Severe Protein calorie malnutrition:
- Significant 15% wt loss noted over the past couple of months
- 116 lbs currently, BMI 18.5, 08/01/24 was 152 lbs and on d/c 08/26 138 lbs both on bed scales.
- Pt meets ASPEN criteria for severe protein calorie malnutrition of chronic illness with >5% weight loss over 1 month, prolonged inadequate energy intake <75% x 1 month.
- I agree with antique furniture repairer on continued increased intakes of meals and consume supplement as tolerated
IBS
- hold remicade
Large degenerating fibroid
- Required exploratory lap with total abdominal hysterectomy and bilateral salpingo-oophorectomy 08/05
- Follow-up with urogynecology outpatient
GERD
- cont omeprazole
Depression/Anxiety
- cont Zoloft 100 mg
- cont prn ativan
DVT prophylaxis-Lovenox
Anticipated Discharge: Within 24 hours
Subjective/Interval History
-
Date of Service: September 18, 2024
No overnight events.
No acute medical issues.
Objective Data
-
Labs:
Laboratory Results
09/18/24
07:47
WBC 6.6
Hgb 12.5
Hct 41.2
Plt Count 564 H
Sodium 139
Potassium 4.9
Chloride 105
Carbon Dioxide 20 L
BUN 15
Creatinine 0.5 L
Glucose 90
Calcium 10.0
Vital Signs:
Vital Signs
Temp Pulse Resp BP Pulse Ox
98.6 F 63 18 86/57 100
09/18/24 08:11 09/18/24 09:41 09/18/24 08:11 09/18/24 09:41 09/18/24 08:11
I&O
09/17/24 09/18/24 09/19/24
06:59 06:59 06:59
Intake Total 900 / 900 240 / 240
Output Total 300 / 300
Balance 600 / 600 240 / 240
Review of Systems
-
History Source: Patient
Constitutional: Denies Fever, Fatigue or Chills
EENT: Denies Blurry Vision
Respiratory: Denies Cough or Wheezing
Cardiac: Denies Chest Pain, Diaphoresis, Palpitations, Syncope, PND or Orthopnea
Abdomen/GI: Reports Abdominal Pain; Denies Nausea, Vomiting, Diarrhea or Constipated
Genitourinary: Denies Dysuria
Musculoskeletal: Reports Muscle Pain (on left side of neck like upper trapezius); Denies Joint Pain
Neuro: Denies Dizzy, Weakness or Numbness
Physical Exam
-
General: Appears Chronically Ill
Respiratory: Decreased Breath Sounds (on lower lobe of left lung)
Cardiac: Regular Rhythm and S1/S2; Negative Murmur
GI: Soft, Nontender, Nondistended and Normal Bowel Sounds
Musculoskeletal: No Edema
Skin: Warm and Dry
Neuro: Awake, Alert, Oriented and AO x 3
Data Reviewed
-
Medical Tests (Nuc Med, Echo etc): Image personally visualized and interpreted and Discussed with Physician
Labs: Labs Reviewed by me and Discussed with Physician
--- NOTE | 2024-09-18 14:28 | WOUNDNOTE ---
[facility] RN NOTE: Patient visited to change ostomy appliance. Patient said she is able to assist with pouch change and has been emptying pouch as needed. Peristomal skin intact, stoma pink and retracted. Patient denies issues with leaking. Pouch changed
with Pete convex barrier #[id number] and pouch #[id number] high output pouch. Patient was very tearful during pouch changed and expressed she is having a hard time accepting ostomy. Support provided throughout visit. Patient states she happy to use
either the high output or velcro ostomy pouch and both are at bedside. Miconzole powder ordered from Pharmacy by RN, Armin, as patient stated she has needed in the past. She denies itching at this time. Will continue to follow as needed during in
patient stay.
[2024-09-18 16:02] VITALS: BP 98/66
[2024-09-18] MEDS: LOVENOX 40 MG SC (17:52)
[2024-09-18 23:43] VITALS: BP 96/55
[2024-09-19] MEDS: MELATONIN 5 MG PO (00:33)
[2024-09-19] MEDS: TYLENOL 650 MG PO ×2 (03:11→13:22)
[2024-09-19 05:23] VITALS: BMI 18.7
[2024-09-19 07:27] VITALS: BP 86/53
[2024-09-19] MEDS: ProAmatine 10 MG PO ×2 (08:42→13:26)
[2024-09-19] MEDS: PROTONIX 40 MG PO (08:42)
[2024-09-19] MEDS: OSCAL CAL 500 500 MG PO (08:42)
[2024-09-19] MEDS: LIDOCAINE 4% PATCH 1 PATCH TOPICAL (08:42)
[2024-09-19] MEDS: ZOLOFT 100 MG PO (08:42)
[2024-09-19] MEDS: ROXICODONE 15 MG PO (09:55)
--- NOTE | 2024-09-19 11:52 | W.PN.HOSP.TC ---
Addendum entered and electronically signed by Sukhdev Jordan MD 09/19/24 13:38:
this am c/o as she feels like fluid is accumlating on the right lung, she has good movememnt thought b/l lungs without rales/rhonchi
-persistent that she would like a cxr to further eval and to be sure pleural effusion is not recurring
dc to [facility] when bed avaliable/insurance auth has been obtained
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 will need outpatient pulm follow up
neuroendocrine tumor will need to follow up with outpatient oncology
Original Note:
Today's Communication/Plan
-
- follow case management
- check chest xray
Assessment / Plan
Assessment / Plan
Dispo- DC back to [facility] - awaiting approval from [place] 09/18
A/P:
Multi-Loculated left-sided pleural effusion
- Ordere chest xray for the patient to check if there is any fluid in lungs
- Advised to continue using incentive spirometry
- initial CT placed 09/01, lytic therapy 09/03, DC'd 09/06
- CT posteriorly placed on 09/08, DC'd 09/12
- f/u as OP with pulm in 4 weeks
Hypotension
- Todays BP is 86/53
- cont midodrine, increased to 10 mg TID
Neuroendocrine Tumor of the Ileum
- no adjuvant therapy at this time
- follow-up with Dr. Mandel as OP.
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
- Monitor output from ileostomy
- Regular diet
- Continue pain control
Abdominal Abscess, resolved
- drain placed on 08/15. DC JAXSON drain 09/06
- completed course of Augmentin->09/04
Severe Protein calorie malnutrition:
- Significant 15% wt loss noted over the past couple of months
- 116 lbs currently, BMI 18.5, 08/01/24 was 152 lbs and on d/c 08/26 138 lbs both on bed scales.
- Pt meets ASPEN criteria for severe protein calorie malnutrition of chronic illness with >5% weight loss over 1 month, prolonged inadequate energy intake <75% x 1 month.
- I agree with land resource specialist on continued increased intakes of meals and consume supplement as tolerated
IBS
- hold remicade
Large degenerating fibroid
- Required exploratory lap with total abdominal hysterectomy and bilateral salpingo-oophorectomy 08/05
- Follow-up with urogynecology outpatient
GERD
- cont omeprazole
Depression/Anxiety
- cont Zoloft 100 mg
- cont prn ativan
DVT prophylaxis-Lovenox
Anticipated Discharge: Within 24 hours
Subjective/Interval History
-
Date of Service: September 19, 2024
No overnight events.
Patient states that she can feel fluid 'accumulating' in lungs.
Objective Data
-
Vital Signs:
Vital Signs
Temp Pulse Resp BP Pulse Ox
98.6 F 56 18 86/53 98
09/19/24 07:27 09/19/24 08:42 09/19/24 07:27 09/19/24 08:42 09/19/24 07:27
I&O
09/18/24 09/19/24 09/20/24
06:59 06:59 06:59
Intake Total 240 / 240 1200 / 1200
Balance 240 / 240 1200 / 1200
Review of Systems
-
History Source: Patient
Constitutional: Denies Fever, Fatigue or Chills
EENT: Denies Blurry Vision
Respiratory: Denies Cough or Wheezing
Cardiac: Denies Chest Pain, Diaphoresis, Palpitations, Syncope, PND or Orthopnea
Abdomen/GI: Reports Abdominal Pain; Denies Nausea, Vomiting, Diarrhea or Constipated
Genitourinary: Denies Dysuria
Musculoskeletal: Reports Muscle Pain (on left side of neck like upper trapezius); Denies Joint Pain
Neuro: Denies Dizzy, Weakness or Numbness
Physical Exam
-
General: Appears Chronically Ill
Respiratory: Decreased Breath Sounds (on lower lobe of left lung)
Cardiac: Regular Rhythm and S1/S2; Negative Murmur
GI: Soft, Nontender, Nondistended and Normal Bowel Sounds
Musculoskeletal: No Edema
Skin: Warm and Dry
Neuro: Awake, Alert, Oriented and AO x 3
Data Reviewed
-
Medical Tests (Nuc Med, Echo etc): Image personally visualized and interpreted and Discussed with Physician
Labs: Labs Reviewed by me and Discussed with Physician
[2024-09-19 15:17] VITALS: BP 93/58
--- NOTE | 2024-09-19 16:05 | CM ---
Plan: Kacey is cleared for discharge back to [facility]. W/C van transport being arranged and payment will be covered by .
[facility] Report: [phone]
[facility]
== END 2024-09-19 17:29 | DRG 374 ==
LOC: 4 EAST ACU 16:47
PROVIDERS: Clinical Nurse Specialist Family Health; Hospitalist; Internal Medicine; Radiology Diagnostic Radiology; Radiology Vascular & Interventional Radiology; Student in an Organized Health Care Education/Training Program; ADMITTING PHYSICIAN Hospitalist; ATTENDING PHYSICIAN Hospitalist; CONSULT PHYSICIAN Internal Medicine Critical Care Medicine; EMERGENCY PHYSICIAN Student in an Organized Health Care Education/Training Program; FAMILY PHYSICIAN Internal Medicine
PROC: 0W9B30Z Drainage of Left Pleural Cavity with Drainage Device, Percutaneous Approach (ICD-10-PCS; 2024-09-01)
PROC: 0B9P30Z Drainage of Left Pleura with Drainage Device, Percutaneous Approach (ICD-10-PCS; 2024-09-03)
PROC: 3E0L317 Introduction of Other Thrombolytic into Pleural Cavity, Percutaneous Approach (ICD-10-PCS; 2024-09-03)
PROC: 3E0L3GC Introduction of Other Therapeutic Substance into Pleural Cavity, Percutaneous Approach (ICD-10-PCS; 2024-09-03)
PROC: 0WPBX0Z Removal of Drainage Device from Left Pleural Cavity, External Approach (ICD-10-PCS; 2024-09-13)
DX: C7A.012 Malignant carcinoid tumor of the ileum (principal); E43 Unspecified severe protein-calorie malnutrition; J90 Pleural effusion, not elsewhere classified; D62 Acute posthemorrhagic anemia; J98.11 Atelectasis; E87.1 Hypo-osmolality and hyponatremia; Z68.1 Body mass index [BMI] 19.9 or less, adult; K51.90 Ulcerative colitis, unspecified, without complications; J94.2 Hemothorax; D25.9 Leiomyoma of uterus, unspecified; D75.839 Thrombocytosis, unspecified; D3A.8 Other benign neuroendocrine tumors; F32.A Depression, unspecified; I95.9 Hypotension, unspecified; F41.9 Anxiety disorder, unspecified; K21.9 Gastro-esophageal reflux disease without esophagitis; G47.00 Insomnia, unspecified; L40.9 Psoriasis, unspecified; Z90.49 Acquired absence of other specified parts of digestive tract; Z93.3 Colostomy status; Z88.0 Allergy status to penicillin
CPT/HCPCS: 88305; 32557; 32561; 71045; 71046; 71250; 71275; 80048; 80053; 82150; 82945; 83615; 83986; 84157; 84478; 84484; 85025; 85027; 85379; 87015; 87070; 87102; 87116; 87205; 87206; 88112; 89051; 93005; 96374; 97116; 97162; 97166; 97530; 97535; 99152; 99153; 99285; C1729; C1769; J2997; Q9967

== ENCOUNTER → 2025-01-15 09:36 | Outpatient (REF) | payer OTHER, SELFPAY | LOC: MRI 09:36 | PROVIDERS: ATTENDING PHYSICIAN Internal Medicine Gastroenterology; FAMILY PHYSICIAN Internal Medicine | DX: K52.3 Indeterminate colitis (principal) | CPT/HCPCS: 72197; 74183; A9575 ==

== ENCOUNTER 2025-02-11 06:26 | Day surgery (SDC) | payer OTHER, SELFPAY | END 2025-02-11 16:44 | disposition home or self-care (01) | LOC: GI 06:26 | PROVIDERS: ATTENDING PHYSICIAN Internal Medicine Gastroenterology | DX: K52.9 Noninfective gastroenteritis and colitis, unspecified (principal); K64.0 First degree hemorrhoids; Z90.49 Acquired absence of other specified parts of digestive tract | CPT/HCPCS: 45331; 44386; 88305 ==

== ENCOUNTER 2025-03-02 06:21 | Day surgery (SDC) | payer OTHER, SELFPAY | END 2025-03-02 13:05 | disposition home or self-care (01) | LOC: GI 06:21 | PROVIDERS: ATTENDING PHYSICIAN Internal Medicine Gastroenterology | DX: R12 Heartburn (principal); K44.9 Diaphragmatic hernia without obstruction or gangrene; K31.89 Other diseases of stomach and duodenum; K22.9 Disease of esophagus, unspecified | CPT/HCPCS: 43239; 88305; 88342 ==

== ENCOUNTER → 2025-07-07 12:03 | Outpatient (REF) | payer OTHER, SELFPAY | LOC: RAD 12:03 | PROVIDERS: ATTENDING PHYSICIAN Internal Medicine Gastroenterology; FAMILY PHYSICIAN Internal Medicine | DX: D3A.8 Other benign neuroendocrine tumors (principal) | CPT/HCPCS: 74177; Q9967 ==

== ENCOUNTER 2025-07-08 06:21 | Day surgery (SDC) | payer OTHER, SELFPAY | END 2025-07-08 14:39 | disposition home or self-care (01) | LOC: GI 06:21 | PROVIDERS: ATTENDING PHYSICIAN Surgery | DX: K50.90 Crohn's disease, unspecified, without complications (principal); Z09 Encounter for follow-up examination after completed treatment for conditions other than malignant neoplasm | CPT/HCPCS: 45330 ==

== ENCOUNTER → 2025-09-15 08:53 | Outpatient (REF) | payer OTHER, SELFPAY | LOC: RAD 08:53 | PROVIDERS: ATTENDING PHYSICIAN Internal Medicine Gastroenterology; FAMILY PHYSICIAN Internal Medicine; REFERRING PHYSICIAN Surgery | DX: K52.3 Indeterminate colitis (principal) | CPT/HCPCS: 74270 ==